=== PATIENT | male | born 1960 | race Caucasian/White ===

== ENCOUNTER 2022-01-18 19:10 | Emergency (ER) | payer OTHER ==
--- OUTSIDE RECORDS SUMMARY | 2022-01-18 19:16 | XMS REPORT | Continuity of Care Document ---
:1960 Author Organization [facility] t Address [address] [place] [address] Care Team Providers Name Role Phone No , Pcp Primary Care Physician Unavailable SOPHIE LAZCANO Attending Clinician Unavailable REBECA JUAREZ Attending Clinician Unavailable ANNETTE WALDEN Attending Clinician Unavailable ANNETTE WALDEN Attending Clinician Unavailable Luis Méndez MD Attending Clinician Annette Walden DO Attending Clinician NEVA MACHUCA Attending Clinician Unavailable NEVA MACHUCA Attending Clinician Unavailable GERI BALDERAS Attending Clinician Unavailable Geri Balderas MD Attending Clinician Kristie Martin MD Attending Clinician AWILDA Attending Clinician Unavailable Doctor Unassigned, [place] Attending Clinician Unavailable KRISTIE MARTIN Attending Clinician Unavailable Amos Andrews DO Attending Clinician AMOS ANDREWS Attending Clinician Unavailable Liz BOO, Chinmay Silva Attending Clinician Unavailable Sam Balbuena DO Attending Clinician Kiet Madera MD Attending Clinician Gramm [employer] LATHE SETTER, Paty A Attending Clinician Ed[facility] Attending Clinician Sophie Lazcano MD Attending Clinician [place], [facility] Test Attending Clinician Unavailable Denny Hammer DO Attending Clinician RAIZA RUSH Attending Clinician Unavailable Raiza Rush MD Attending Clinician [phone] Alix PRATHER, Gema Silva Attending Clinician [phone] GEMA SOARES Attending Clinician Unavailable Madonna Garcia MD Attending Clinician MADONNA GARCIA Attending Clinician Unavailable Feli White DO Attending Clinician LampEboni Quiñonez Attending Clinician EBONI COFFMAN Attending Clinician Unavailable Pavan Craig MD Attending Clinician PAVAN CRAIG Attending Clinician Unavailable Kayla Lucas Attending Clinician Unavailable Sobia Ace MD Attending Clinician SOBIA ACE Attending Clinician Unavailable [facility] Attending Clinician Unavailable 1, [facility] Cardio Fac Room Attending Clinician Unavailable Ryland YORK, Isaias Ohara Attending Clinician Andi Castrejon MD Attending Clinician Becca Dempsey RN Attending Clinician Ricky Sher MD Attending Clinician Eliu Wallace MD Attending Clinician JONATHAN LING Attending Clinician Unavailable ROSALIE MAGAÑA Attending Clinician Unavailable SOPHIE LAZCANO Admitting Clinician Unavailable NEVA MACHUCA Admitting Clinician Unavailable AMBREEN_FARHANA Admitting Clinician Unavailable EVELYN VALENCIA Admitting Clinician Unavailable Sam Balbuena DO Admitting Clinician Sophie Lazcano MD Admitting Clinician SOBIA ACE Admitting Clinician Unavailable Ricky Sher MD Admitting Clinician Eliu Wallace MD Admitting Clinician FARNAZ DELGADO Admitting Clinician Unavailable Payers Payer Name Policy Type Policy Number Effective Date Expiration Date Ольга mcgee [facility] [id number] 2017 CHOICE 00:00:00 [facility] PLUS [id number] 2017 00:00:00 [facility] [employer] [id number] 2019 00:00:00 Problems Condition Condition Condition Status Onset Resolution Last Treating Co mments Source Name Details Category Date Date Treatment Clinician Date Skull Skull Disease Active Univers fracture fracture 1-20 ity of with with 00:00: [place] cerebral cerebral 00 Medica l contusion, contusion, Br anch sequela sequela Skin tag Skin tag Disease Active Unive rs 1-20 ity of 00:00: [place] 00 Medical Branch Sepsis Sepsis Disease Active Univers 7-12 ity of 00:00: [place] 00 Medical Branch Tracheosto Tracheosto Disease Active U nivers my status my status 5-13 ity of 00:00: [place] 00 Medical Branch Hospice Hospice Disease Active Overview: Univ ers care care 3-05 Formattin ity of patient patient 00:00: g of this [place] 00 note Medical might be Branch different from the original. Added automatic ally from request for surgery [id number] Encounter Encounter Disease Active 2019-02 Uni vers for for 1-11 [place] of screening screening 00:[place] for for 00 Medical malignant malignant Bran ch neoplasm neoplasm of lung of lung Anxiety, Anxiety, Disease Active 2019-02 Unive rs generalize generalize 1-11 it y of d d 00:00: [place] 00 Medical Branch Agitation Agitation Disease Active 2019-02 Uni vers states as states as 1-11 ity of acute acute 00:00: [place] reaction reaction 00 Medica l to to Branch exceptiona exceptiona l (gross) l (gross) stress stress Spasticity Spasticity Disease Active U nivers 7-01 ity of 00:00: [place] 00 Medical Branch Fungal Fungal Disease Active [facility] nail nail 7- it[place] of infection infection 00:[place] Change in Change in Disease Active Uni vers nail nail 7- it[place] of appearance appearance [place] Paralysis Paralysis Disease Active Uni vers 4-28 ity of 00:00: [place] 00 Medical Branch Pneumoniti Pneumoniti Disease Active U nivers s due to s due to -28 ity of inhalation inhalation 00:00[place] of food or of food or 00 Me dical vomitus vomitus Branch Clostridiu Clostridiu Disease Active 2018-02 U tarun m m 2-16 it[place] of difficile difficile 00:[place] diarrhea diarrhea 00 Medica [place] Branch Cardiomyop Cardiomyop Disease Active 2018-02 U tarun athy, athy, 2-16 ity of unspecifie unspecifie 00:[place] d type d type 00 Medical Branch E44.1 Mild E44.1 Mild Disease Active 2018-02 U tarun protein-ca protein-ca - it y of esperanza esperanza 00:00: [place] malnutriti malnutriti 00 Me dical on on Branch [facility] Disease Active Unive rs discharge discharge 10-31 ity of follow-up follow-up 00:[place] [facility] [place] Chronic Chronic Disease Active [facility] congestive congestive 10-31 it y of heart heart 00:00: [place] failure, failure, 00 Medica l unspecifie unspecifie Br anch d heart d heart failure failure type type Pressure Pressure Disease Active Unive rs injury of injury of 10-31 ity of skin of skin of 00:00: [place] buttock, buttock, 00 Medica l unspecifie unspecifie Br anch d injury d injury stage, stage, unspecifie unspecifie d d laterality laterality Migraine Migraine Disease Active Unive rs without without 10-31 ity of status status 00:00: [place] migrainosu migrainosu 00 Me dical s, not s, not Branch intractabl intractabl e, e, unspecifie unspecifie d migraine d migraine type type Constipati Constipati Disease Active U tarun on, on, 10-31 ity of unspecifie unspecifie 00:00[place] d d 00 Medical constipati constipati Br anch on type on type Chronic Chronic Disease Active Univers neuropathi neuropathi 9-23 it y of c pain c pain 00:00: [place] 00 Medical Branch E44.0 E44.0 Disease Active Univers Moderate Moderate 9-13 ity of protein protein 00:00: [place] calorie calorie 00 Medical malnutriti malnutriti Br anch on on Other Other Disease Active Univers pulmonary pulmonary 6-03 ity of embolism embolism 00:00: [place] without without 00 Medical acute cor acute cor Bran ch pulmonale, pulmonale, unspecifie unspecifie d d chronicity chronicity Septic Septic Disease Active Univers shock shock 6-03 ity of 00:00: [place] 00 [facility] Branch NSTEMI NSTEMI Disease Active Univers (non-ST (non-ST 6- ity of elevated elevated 00:00: [place] myocardial myocardial 00 Me dical infarction infarction Br anch ) ) Acute Acute Disease Active Univers respirator respirator 5-24 it y of y failure y failure 00:00[place] E46 E46 Disease Active Univers Unspecifie Unspecifie 5-08 it y of d severe d severe 00:00: [place] protein-ca protein-ca 00 Me dical esperanza esperanza Branch malnutriti malnutriti on on HCAP HCAP Disease Active Univers (healthcar (healthcar 4-23 it y of e-associat e-associat 00:00: [place] ed ed 00 Medical pneumonia) pneumonia) Br anch Syncope Syncope Disease Active Univers 1-24 ity of 00:00: [place] 00 Medical Branch Shortness Shortness Disease Active Uni vers of breath of breath 1-16 ity of 00:00: [place] [address] Medical Branch Aspiration Aspiration Disease Active U nivers pneumonia pneumonia 1-03 ity of 00:00: [address] Branch Hypoxia Hypoxia Disease Active 2017-02 Univers 2-24 ity of 00:00: [place] 00 Medical Branch RLL RLL Disease Active 2017-02 Univers pneumonia pneumonia 2-19 ity of 00:00: [address] Branch Seizures Seizures Disease Active 2017-02 Unive rs 0-09 ity of 00:00: [place] 00 Medical Branch Infection Infection Disease Active 2017-02 Uni vers 0-02 ity of 00:00: [place] 00 Medical Branch Complicate Complicate Disease Active U nivers d UTI d UTI 09-09 ity of (urinary (urinary 00:00: [place] tract tract 00 Medical infection) infection) Br anch Infection Infection Disease Active Uni vers of scalp of scalp 09-08 ity of 00:00: [place] [facility] Hepatitis Hepatitis Disease Recurre Un desirae C virus C virus nce 09-08 ity of infection infection 00:00[place] Aphasia Aphasia Disease Recurre Univer s with TBI with TBI nce 09-08 ity of (traumatic (traumatic 00:00: [place] brain brain 00 Medical injury), injury), Branch open open Generalize Generalize Disease Active U nivers d d 09-08 ity of tonic-clon tonic-clon 00:00: [place] ic seizure ic seizure 00 Md dical Branch Acute Acute Disease Active Univers cystitis cystitis 09-08 ity of without without 00:00: [place] hematuria hematuria 00 [facility] Branch History of History of Disease Recurre Univers trephinati trephinati nce 09-08 it y of on of on of 00:00: [place] cranium cranium 00 Medical Branch Altered Altered Disease Active [facility] mental mental 7-28 [facility] 00:00: Medical 00 Center S/P S/P Disease Active [facility] craniotomy craniotomy 728 [facility] 00:00: Medical 00 Center Altered Altered Disease Active Univers mental mental 6-04 ity of status status 00:00: [place] Medical Branch Open wound Open wound Disease Active Overview : Univers of scalp, of scalp, 5-04 Formattin i ty of unspecifie unspecifie 00:00: g of this [place] d open d open 00 note Medical wound wound might be Branch type, type, different initial initial from the encounter encounter original. Added automatic ally from request for surgery [id number] Osteomyeli Osteomyeli Disease Active U nivers tis of tis of 2-04 ity of skull skull 00:00: [place] [facility] Abscess Abscess Disease Active Univers 1-31 ity of 00:00: [place] [facility] PEG tube PEG tube Disease Active Unive rs malfunctio malfunctio 03-07 it y of n n 00:00: [place] [facility] Scalp Scalp Disease Active Univers abscess abscess 03-07 ity of 00:00: [place] 00 Medical Branch Morbid Morbid Disease Active Univers obesity obesity 03-07 ity of with body with body 00:00: [place] mass index mass index 00 Me dical of 50 or of 50 or Branch higher higher PEG PEG Disease Active Univers (percutane (percutane 03-06 it y of ous ous 00:00: [place] endoscopic endoscopic 00 Me dical gastrostom gastrostom Br anch y) status y) status Pyogenic Pyogenic Disease Active 2016-02 Unive rs brain brain 0-30 ity of abscess abscess 00:00: [place] 00 Medical Branch Fever, Fever, Disease Active 2016-02 Univers unspecifie unspecifie 0-07 it y of d fever d fever 00:00: [place] cause cause 00 Medical Branch Leukocytos Leukocytos Disease Active 2016-02 U nivers is, is, 0-07 ity of unspecifie unspecifie 00:00: [place] d type d type 00 Medical Branch Acute Acute Disease Active 2016-02 Univers respirator respirator 0-07 it y of y failure y failure 00:00: [place] with with 00 Medical hypoxia hypoxia Branch Subdural Subdural Disease Active Unive rs hemorrhage hemorrhage 11-03 it y of 00:00: [place] 00 Medical Branch Skull Skull Disease Active Univers fracture fracture 11-03 ity of with with 00:00: [place] cerebral cerebral 00 Medica l contusion, contusion, Br anch open, open, initial initial encounter encounter Traumatic Traumatic Disease Active Uni vers brain brain 11-03 ity of injury, injury, 00:00: [place] without without 00 Medical loss of loss of Branch consciousn consciousn ess, ess, sequela sequela Cerebral Cerebral Disease Active Unive rs edema edema 11-03 ity of 00:00: [place] 00 Medical Branch Compressio Compressio Disease Active U nivers n of brain n of brain 11-03 it y of 00:00: [place] 00 Medical Branch Traumatic Traumatic Disease Active Uni vers subarachno subarachno 11-03 it y of id bleed id bleed 00:00: [place] with LOC with LOC 00 Medica l of 6 hours of 6 hours Br anch to 24 to 24 hours, hours, initial initial encounter encounter S/P S/P Disease Active Univers craniotomy craniotomy 11-03 it y of 00:00: [place] 00 Medical Branch Aftercare Aftercare Disease Active Uni vers following following 11-03 ity of surgery of surgery of 00:00: [place] the the Medical nervous nervous Branch system system Endotrache Endotrache Disease Active U nivers ally ally 11-03 ity of intubated intubated 00:00[place] Ventilator Ventilator Disease Active U nivers dependent dependent 11-03 ity of 00:00: [place] [address] Medical Branch Chronic Chronic Disease Active Overview: Univ ers respirator respirator 11-02 Formattin ity of y failure y failure 00:00: [place] of this [place] with with 00 note Medical hypoxia hypoxia might be Branch different from the original. Added automatic ally from request for surgery [id number] S/P ORIF S/P ORIF Disease Active [facility] (open (open 08-07 Health reduction reduction 00:00: internal internal 00 fixation) fixation) fracture fracture Occult Occult Disease Active [place] blood blood 07-13 Health positive positive 00:00: stool stool 00 Chronic Chronic Disease Active [place] hepatitis hepatitis 05-30 Heal C without C without 00:00: hepatic hepatic 00 coma coma Hepatic Hepatic Disease Active [place] cirrhosis cirrhosis 05-30 Heal 00:00: 00 Overweight Overweight Disease Active [facility] (278.02) (278.02) 04-13 Health 00:00: 00 distal distal Disease Active [place] ulna fx ulna fx 04-13 Health 00:00: 00 History of History of Disease Active [facility] alcohol alcohol 04-13 Health abuse abuse 00:00: 00 History of History of Disease Active [facility] positive positive 04-13 Health PPD PPD 00:00: 00 \major \major Disease Active Overview: [facility] depression depression 04-13 Formattin Health managed by managed by 00:00: g of this private private 00 note psychiatri psychiatri might be st dr st dr ghazala gross from the original. [facility] CE MALE Occult Blood (50+ yearly): Cholest (20+ q 5 years): Td (adult 11+):04/22 ppd: + quantifer on +Pneumova x adult:07/09 5 Fluzone: History of History of Disease Active 2014- [facility] colon colon - Health polyps polyps 00:00: 00 History of History of Disease Active [facility] humerus humerus 04-13 Health fracture fracture 00:00: 00 Impotence Impotence Disease Recurre 2010-02 Un desirae of organic of organic nce 02-28 it y of origin origin 00:00: [place] 00 Medical Branch Allergies, Adverse Reactions, Alerts This patient has no known allergies or adverse reactions. Family History Family Member Diagnosis Comments Start Date Stop Date Source Natural father Cancer Stefan Borjafrantz [facility] Natural mother Arthritis [facility] Jonhfrantz [facility] Natural mother Hypertension Stefan welsh Social History Social Habit Start Date Stop Date Quantity Comments Source History of Current smoker University of tobacco use [facility] Exposure to 2021-09-30 2021-10-10 Not sure [facility] SARS-CoV-2 00:00:00 03:27:00 [facility] (event) [place] Alcohol intake 2021-06-07 2021-06-07 Current Stefan Jonhfrantz [facility] 00:00:00 00:00:00 non-drinker of alcohol (finding) Tobacco Comment 2018-01-31 2018-01-31 cigar smoker, Univer sity of 00:00:00 00:00:00 quit after TBI [facility] Tobacco use and 2017-09-04 2017-09-[address] [facility] exposure 00:00:00 [facility] Alcohol Comment 2014-09-26 2014-09-26 quit 09/1997 Stefan welsh 00:00:00 00:00:00 [birth year] Stefan hanson 00:00:00 00:00:00 Smoking Status Start Date Stop Date Source Tobacco smoking [facility] consumption unknown Ex-smoker 2018-01-31 00:00:00 2018-01-31 [facility] 00:00:00 Medical Branch Never smoker [facility] Medications Ordered Filled Start Stop Current Ordering Indication Dosage Frequency Signature Comments Components Source Medication Medication Date Date Medication? Clinician (SIG) Name Name aspirin 81 Yes 81mg 81 mg Univer s mg EC 7-27 every 3 ity of tablet 16:27: (three) [place] 49 days. Medical Indication Branch s: Taken via Peg-tube not oral. SERTraline Yes 100mg Take 100 Un desirae 100 mg 7-27 mg by ity of tablet 16:27: mouth. [place] 49 Medical Branch Polyethylen Yes 17g Take 17 g U nivers e Glycol 7-27 by mouth. ity of 3350 17 16:27: [place] gram powder 49 Medical Branch whey Yes 7g Take 7 g Univers protein 7-27 through ity of isolate 21 16:27: feeding [place] gram-100 49 tube. Medical kcal/27 Branch gram Powd sennosides Yes 2{tbl} Take 2 Uni vers 8.6 mg 7-27 tablets by ity of tablet 16:27: mouth. [place] 49 Medical Branch Lactobacill Yes 1{tbl} Take 1 Un desirae us Acidoph 7-27 tablet by ity of & Bulgar 1 16:27: mouth. [facility] 49 Medical cell Tab Branch morpHINE Yes 20mg Take 20 mg Uni vers CONC 100 7-27 by mouth ity of mg/5 mL (20 16:27: every 12 [place] mg/mL) 49 (twelve) Medical concentrate hours as Bran ch d solution needed. LORazepam Yes .5mg Take 0.5 Univ ers (ATIVAN) 7-27 mg by ity of 0.5 mg 16:27: mouth. [place] tablet 49 Take two Medical at bed Branch time, One during the day for agiation hyoscyamine Yes .125mg Place Uni vers sulfate 7-27 0.125 mg ity of 0.125 mg 16:27: [place] the [place] sublingual 49 tongue. Medica l tablet One at bed Branch time and one at 2 am proMETHazin Yes 25mg Take 25 mg Univers e 25 mg 7-27 by mouth ity of tablet 16:27: every 4 [place] [address] (four) Medical hours as Branch needed for Nausea and Vomiting (N/V). peg-electro Yes [id number] 4000mL Take 4,000 Univers lyte soln 6-29 mL by ity of 236-22.74-6 00:00: mouth [place] .74 -5.86 00 SEE-INSTRU Medi sydnee gram CTIONS. Branch solution Take as directed GABAPENTIN Yes [id number] GIVE 1 Univers 300 mg 3-23 CAPSULE ity of capsule 00:00: THREE [place] 00 TIMES Medical DAILY VIA Branch PEG TUBE atorvastati 2019-02 Yes [id number] 40mg Take 2 Univers n 20 mg 2-23 tablets by ity of tablet 00:00: mouth at [place] 00 bedtime. Medical Branch albuterol 2019-02 Yes [id number] 2.5mg Inhale 3 Univers 2.5 mg /3 1-11 mL every 6 ity of mL (0.083 00:00: (six) [place] %) 00 hours as Medical nebulizer needed for Bran ch solution Wheezing or Shortness of Breath. melatonin 2019-02 Yes [id number] 1{tbl} Take 1 Univers 10 mg Tab 1-11 tablet by ity o f 00:00: mouth at [place] 00 bedtime as Medical needed for Branch Insomnia. valproic 2019-02 Yes [id number] 250mg Take 5 mL Univers acid 250 0-24 through ity of mg/5 mL 00:00: enteral [place] solution 00 tube every Medic al 12 Branch (twelve) hours. tiZANidine Yes TK 1 T PO Un desirae 4 mg tablet 6-27 BID ity of 00:00: [place] 00 Medical Branch Miscellaneo Yes [id number] Diagnosis: Univers Medical 2-18 [id number] ity of Supply Misc 00:00: valerie Lift, [place] 00 use daily Medical for Branch patient transfer Miscellaneo 2018- Yes [id number] Use as Univers us Medical 10-31 directed ity o f Supply Pads 00:00: [place] 00 Medical Branch docusate 2018- Yes [id number] 10mg Take 1 mL Univers (SILACE) 50 9-23 through ity o f mg/5 mL 00:00: enteral [place] solution 00 tube Medical daily. Branch Feeding 2018- Yes [id number] Use as Univ ers Tubes - 10-25 directed ity of Bags Misc 00:00: [place] 00 Medical Branch HYDROcodone 2018- Yes [id number] 1{tbl} Take 1 Univers -acetaminop 8-08 tablet by ity of hen 10-325 00:00: mouth [place] mg tablet 00 every 6 Medical (six) Branch hours as needed for Pain (scale 4-6). acetaminoph 2017-02 Yes 320mg Take 10 mL Univers en 160 mg/5 1-19 by mouth ity of mL elixir 00:00: every 6 [place] 00 (six) Medical hours as Branch needed for Fever or Pain. Via feeding tube atorvastati Yes 40mg QD Take [address] [facility] (LIPITOR) 7-29 by mouth [facility] s 40 MG 19:59: daily. Medical tablet 13 [place] bacitracin Yes QD Apply [facility] 500 7-29 topically [facility] unit/gram 19:59: daily. Medica l ointment 13 [place] trypsin-bal Yes Apply [facility] drake-castor 7-29 topically Luke s oil 19:59: 2 (two) [facility] 23-29-375 13 times [place] unit-mg-mg/ daily as gram Oint needed. bisacodyl Yes 10mg Place [address] (FLEET) 10 7-29 mg [facility] mg/30 mL 19:59: rectally Medic al Enem enema 13 once. [place] enoxaparin Yes 70mg Inject [address] (LOVENOX) 7-29 mg [facility] 100 mg/mL 19:59: subcutaneo Me dical Syrg 13 usly every Center 12 (twelve) hours. fluticasone Yes 1{puff} Inhale [address] (FLOVENT 7-29 puff by [facility] DISKUS) 50 19:59: mouth via Me dical mcg/actuati 13 inhaler Cente r on diskus daily as inhaler needed. HYDROcodone 2017- Yes 1{tbl} Take [address] -acetaminop 7-29 tablet by Naomi martinez (NORCO 19:59: mouth Medica l 5-325) 13 every 8 [place] 5-325 mg (eight) per tablet hours as needed for Pain. levETIRAcet 2017- Yes 500mg Q.5D Take [address] am (KEPPRA) 7-29 mg by [facility] 500 MG 19:59: mouth 2 Medical tablet 13 (two) [place] times daily. loratadine 0 Yes 10mg QD Take [address] (CLARITIN) 7-29 by mouth [facility] 10 mg 19:59: daily. Medical tablet 13 [place] melatonin 3 0 Yes 3mg Take [address] mg Tab 7-29 by mouth [facility] tablet 19:59: every Medical 13 night as Center needed. mirtazapine 20180 Yes 15mg QD Take [address] (REMERON) 7-29 by mouth [facility] 15 MG 19:59: nightly. Medical tablet 13 [place] ondansetron 0 Yes 4mg Take [address] (ZOFRAN-ODT 7-29 by mouth Luke s ) 4 MG 19:59: every 8 Medical disintegrat 13 (eight) Cente r ing tablet hours as needed for Nausea. pantoprazol 0 Yes 40mg QD Take [address] e 7-29 by mouth [facility]ukes (PROTONIX) 19:59: daily. Medic al 40 MG 13 [place] tablet polyethylen 0 Yes 17g QD Take [address] e glycol 7-29 by mouth [facility] (GLYCOLAX) 19:59: daily. Medic al 17 gram 13 [place] packet senna Yes 2{tbl} QD Take [address] (SENOKOT) 7-29 tablets by Luke s 8.6 mg 19:59: mouth Medical tablet 13 nightly. [place] sertraline 0 Yes 100mg QD Take [address] (ZOLOFT) 7-29 mg by [facility] 100 MG 19:59: mouth Medical tablet 13 daily. [place] whey 0 Yes 7g Q.[id number] 7 g by PEG [facility] protein 7-29 [id number] Tube route [facility] isolate 21 19:59: 3D 3 (three) Me dical gram-100 13 times Center kcal/27 daily. gram Powd acetaminoph 0 Yes 650mg Take [address] en 7-29 mg by [facility] (TYLENOL) 19:59: mouth Medical 325 MG 13 every 4 Center tablet (four) hours as needed for Pain. Lactobacill 2018-0 Yes 1{tbl} QD Take [address] us 7-29 tablet by [facility]ukes acidoph-L.b 19:59: mouth Medic al ulgar 13 daily. [place] (FLORANEX) 1 million cell Tab per tablet artificial Yes 1[drp] Place 1 Un desirae tears,hypro 6-15 Drop in ity o f mellose, 00:00: both eyes [place] 0.5 % 00 2 (two) Medical ophthalmic times Branch drops daily as needed for Dry eyes. DULoxetine Yes 60mg QD Take 60 mg [facility] (CYMBALTA) 1-20 by mouth Healt h 60 mg 15:01: daily. delayed 26 release capsule traZODone Yes 100mg Take 100 [facility] (DESYREL) 1-20 mg by [facility] 100 mg 15:01: mouth at tablet 26 bedtime nightly. diazepam Yes 10mg Take 10 mg [facility] (VALIUM) 10 1-20 by mouth Heal th mg tablet 15:01: every 6 26 hours as needed for Anxiety. gabapentin Yes 300mg Take 300 [place] r[facility] (NEURONTIN) 1-20 mg by [facility] 300 mg 15:01: mouth 3 capsule 26 times daily. diphenhydrA Yes 25mg Take 25 mg [facility] MINE 1-20 by mouth Health (BENADRYL) 15:01: nightly at 25 mg 26 bedtime as capsule needed for Sleep. tamsulosin 2015-02 Yes Medication TAKE 1 [facility] (FLOMAX) 2-15 refill CAPSULE BY [facility] 0.4 mg 00:00: MOUTH AT extended 00 BEDTIME release NIGHTLY. capsule fentaNYL 2015-02 Yes 1{patch Apply 1 [facility] (DURAGESIC) 2-01 } Patch to Heal th 100 mcg/hr 13:10: skin as 72 hr 40 directed transdermal every 72 patch hours. cetirizine Yes Acute 10mg QD Take 1 [place] is (ZYRTEC) 10 6-27 pharyngitis tablet by Health mg tablet 00:00: , mouth 00 unspecified daily. etiology Mineral Yes Xerosis Apply to [facility] ris Oil-Isoprop 5-17 cutis affected [facility] yl Myristat 00:00: area Mix Lotn 00 80 mg of triamcinol one ( 2 ml of the 40mg/ml concentrat ion) into an 8 ounce bottle of skin moisturize r Apply to dry skin tid. calcium 500 Yes Hypocalcemi Q.5D Take by [facility] mg Tab 4-03 a mouth 2 Health 00:00: times 00 daily. Immunizations Ordered Immunization Filled Immunization Date Status Commen ts Source Name Name SARS-COV-2 COVID-19 2020-04-09 Completed Unive rsity of PFIZER VACCINE 00:00:00 [facility] SARS-COV-2 COVID-19 2020-03-19 Completed Unive rsity of PFIZER VACCINE 00:00:00 [facility] Td 2016-11-02 Completed [facility] 00:00:00 [facility] Twinrix (hep a/hep 2015-05-31 Completed Univer sity of b) 00:00:00 [facility] Twinrix-HEP A&b 2015-05-31 Completed [facility] alth 00:00:00 Twinrix (hep a/hep 2014-08-27 Completed Univer sity of b) 00:00:00 [facility] Twinrix-HEP A&b 2014-08-27 Completed [facility] alth 00:00:00 Pneumococcal 2014-07-23 Completed [facility] Polysaccharide, 00:00:00 [facility] ical PPSV23 (PNEUMOVAX) [place] Twinrix (hep a/hep 2014-07-23 Completed Univer sity of b) 00:00:00 [facility] PPV 23 Pneumococcal 2014-07-23 Completed [facility] Polysaccaride 00:00:00 Twinrix-HEP A&b 2014-07-23 Completed [facility] alth 00:00:00 TDAP 2014-04-13 Completed [facility] 00:00:00 [facility] Tdap Tetanus, 2014-04-13 Completed [facility] th diphtheria, 00:00:00 acellular pertussis Vaccine Procedures This patient has no known procedures. Plan of Care Planned Activity Planned Date Details Comments Source Future Scheduled Test 2021-11-08 00:00:00 IMM Influenza [facility] Seasonal (>/= 19 yrs) [code = IMM Influenza Seasonal (>/= 19 yrs)] Future Scheduled Test 2021-01-08 00:00:00 Screening for [facility] malignant neoplasm of colon (procedure) [code = 752559618] Future Scheduled Test 2021-01-08 00:00:00 Screening for [facility] malignant neoplasm of colon (procedure) [code = 656977180] Future Scheduled Test 2012-02-19 00:00:00 Screening for [facility] malignant neoplasm of colon (procedure) [code = 132451833] Future Scheduled Test 2012-02-19 00:00:00 Screening for [facility] malignant neoplasm of colon (procedure) [code = 485001100] Future Scheduled Test 2012-02-19 00:00:00 Screening for [facility] malignant neoplasm of colon (procedure) [code = 344087757] Future Scheduled Test 1962 00:00:00 COVID-19 Vaccine (#1) [facility] [code = COVID-19 Vaccine (#1)] Encounters Start End Encounter Admission Attending Care Care Encounter Source Date/Time Date/Time Type Type Clinicians Facility Department ID 2020-12-09 Outpatient [facility] [id number] Univers 10:31:29 [facility] 2020-12-09 Emergency [facility] [id number] Univers 07:30:10 ity [facility] 2020-12-08 Outpatient [facility] [id number] Univers 04:31:19 [facility] 2020-06-26 Outpatient [facility] [id number] [place] 13:50:36 [facility] 2020-06-26 Outpatient [facility] [id number] [place] 07:30:01 [facility] 2021-10-10 2021-10-10 Emergency X ANNETTE WALDEN [facility] ERT 1 [id number] Univers 03:30:00 11:12:00 ANNETTE WALDEN [facility] 2021-10-10 2021-10-10 Emergency Méndez, Luis W TRAU[place] 1.2.840.11 [id number] Univers 03:30:00 11:12:00 Annette Walden [place] 350.1.13.[address] [facility] [id number] [address] 2021-10-09 2021-10-10 Emergency X NEVA MACHUCA [facility] ERT 1 [id number] Univers 23:12:00 02:45:00 NEVA MACHUCA [facility] 2021-10-09 2021-10-10 Emergency Hajiyev, TRAUMA 1.2.840.114 [id number] Univers 23:12:00 02:45:00 [facility] 350.1.13.10 [place] [phone] [facility] [address] 2021-10-09 2021-10-09 Emergency [facility] [id number] Univers 18:54:00 22:02:00 GERI costay of [facility] 2021-10-09 2021-10-09 [facility] 1.2.809.391 [id number] Univers 18:54:00 22:02:00 Geri FREDERICK 350.1.13.10 i ty [place] [id number] [facility] [address] [place] 2021-09-30 2021-09-30 Telephone [facility] 1.2.840.114 [id number] Univers 00:00:00 00:00:00 Kristie FREDERICK 350.1.13.10 i ty [place] [phone] Md dic[address] 2021-09-17 2021-09-17 Telephone [facility] 1.2.840.114 9 [id number] Univers 00:00:00 00:00:00 Kristie FREDERICK 350.1.13.10 i ty [place] [phone] Md dicpr NAL [address] [place] [address] 2021-09-17 2021-09-17 Telephone [facility] 1.2.840.114 9 [id number] Univers 00:00:00 00:00:00 Kristie FREDERICK 350.1.13.10 i ty [place] [id number] Md dicpr NAL [address] [place] [address] 2021-08-19 2021-08-19 Outpatient [facility] [address] [place] 02:21:00 02:21:00 SNEHA 07Caty da [facility] Outre h Program 2021-08-15 2021-08-15 Telephone [facility] 1.2.840.114 9 [id number] Univers 00:00:00 00:00:00 Kristie FREDERICK 350.1.13.10 i ty [place] [id number] Md dic[address] 2021-08-15 2021-08-15 Telephone [facility] 1.2.840.114 9 [id number] Univers 00:00:00 00:00:00 Kristie FREDERICK 350.1.13.10 i ty [place] [id number] [address] 2021-06-20 2021-06-20 [facility] 1.2.840.114 9 [id number] Univers 00:00:00 00:00:00 Kristie FREDERICK 350.1.13.10 i ty [place] [id number] Md dic[address] 2021-06-11 2021-06-11 [facility] 1.2.840.114 9 [id number] Univers 00:00:00 00:00:00 Kristie FREDERICK 350.1.13.10 i ty [place] [id number] [address] 2021-04-11 2021-04-11 [facility] 1.2.840.114 9 [id number] Univers 00:00:00 00:00:00 Kristie FREDERICK 350.1.13.10 i ty [place] [id number] Md dic[address] 2021-04-11 2021-04-11 Orders Doctor SANTO 1.2.840.114 [id number] Univers 00:00:00 00:00:00 Only Unassigned, EVELYNE 350.1.13.10 ity of [place] [facility] 4.2.7.2.686 José Miguel as [phone] [address] 2021-04-09 2021-04-09 Telephone [facility] 1.2.840.114 9 [id number] Univers 00:00:00 00:00:00 Kristie FREDERICK 350.1.13.10 i ty [place] [phone] [address] 2021-04-04 2021-04-04 Telephone [facility] 1.2.840.114 9 [id number] Univers 00:00:00 00:00:00 Kristie FREDERICK 350.1.13.10 i ty [place] [id number] [address] 2021-04-02 2021-04-02 Orders Doctor HANSA 1.2.840.114 [id number] Univers 00:00:00 00:00:00 Only Unassigned, EVELYNE 350.1.13.10 ity of [place] [facility] 4.2.7.2.686 José Miguel as [phone] [address] 2021-03-12 2021-03-12 Telephone [facility] 1.2.840.114 9 [id number] Univers 00:00:00 00:00:00 Kristie FREDERICK 350.1.13.10 i ty [place] [id number] [address] 2021-02-28 2021-02-28 Orders Doctor HANSA 1.2.840.114 [id number] Univers 00:00:00 00:00:00 Only Unassigned, EVELYNE 350.1.13.10 ity of [place] [facility] 4.2.7.2.686 José Miguel as [phone] [address] 2021-02-27 2021-02-27 Outpatient R VERONICA [facility] [id number] Univers 09:00:00 16:08:28 KRISTIE nettles of [facility] 2021-02-27 2021-02-27 [facility]ici [facility] 1.2.840.114 [id number] Univers 09:00:00 16:08:28 ne Visit Kristie FREDERICK 350.1.13.10 [facility] 4.2.7.2.[place] [phone] Md dical NAL [address] [place] [address] 2021-02-21 2021-02-21 Telephone [facility] 1.2.840.114 9 [id number] Univers 00:00:00 00:00:00 Kristie FREDERICK 350.1.13.10 i ty [facility] 4.2.7.2.[place] [phone] Md dical NAL [address] [place] [address] 2021-01-30 2021-01-30 Telephone [facility] 1.2.840.114 8 [id number] Univers 00:00:00 00:00:00 Kristie FREDERICK 350.1.13.10 i ty [facility] 4.2.7.2.[place] [phone] Md dicpr NAL [address] [place] [address] 2020-12-27 2020-12-27 Orders Doctor HANSA 1.2.840.114 [id number] Univers 00:00:00 00:00:00 Only Unassigned, EVELYNE 350.1.13.10 ity of [place] [facility] 4.2.7.2.686 José Miguel as [phone] [address] 2020-12-13 2020-12-13 EXT MHH OP Magat, EXT MSRDP 1.2.840.114 1 [id number] [place] 00:00:00 00:00:00 Rebeca LOCATION 350.1.13.58 Health 9.2.7.2.686 [id number] 0 2020-12-10 2020-12-10 Outpatient R [facility] [id number] Univers 00:00:00 00:00:00 ity of [facility] 2020-12-10 2020-12-10 Orders Doctor HANSA 1.2.840.114 [id number] Univers 00:00:00 00:00:00 Only Unassigned, EVELYNE 350.1.13.10 ity of [place] [facility] 4.2.7.2.686 José Miguel as [phone] [address] 2020-11-25 2020-11-25 Outpatient [facility] [id number] Univers 00:00:00 00:00:00 ity of [facility] 2020-11-21 2020-11-21 Emergency [facility] 1.2.346.096 [id number] Univers 07:45:00 11:11:00 Amos Frederick 350.1.13.10 i ty of [place] [phone] [address] 2020-11-21 2020-11-21 Emergency X [facility] ERT [id number] Univers 07:45:00 11:11:00 AMOS igorlul of [facility] 2020-11-12 2020-11-12 Telephone [facility] 1.2.840.114 8 [id number] Univers 00:00:00 00:00:00 Kristie Frederick 350.1.13.10 i ty of [place] [phone] [address] 2020-10-11 2020-10-11 Telephone [facility] 1.2.840.114 8 [id number] Univers 00:00:00 00:00:00 Kristie Frederick 350.1.13.10 i ty of [place] [phone] Md dic[address] 2020-10-04 2020-10-04 Orders Doctor HANSA 1.2.840.114 [id number] Univers 00:00:00 00:00:00 Only Unassigned, EVELYNE 350.1.13.10 ity of [place] [facility] 4.2.7.2.686 José Miguel as [phone] [address] 2020-10-04 2020-10-04 Orders Doctor HANSA 1.2.840.114 [id number] Univers 00:00:00 00:00:00 Only Unassigned, EVELYNE 350.1.13.10 ity of [place] [facility] 4.2.7.2.686 José Miguel as [phone] [address] 2020-09-302020-09-30 Telephone [facility] 1.2.840.114 8 [id number] Univers 00:00:00 00:00:00 Kristie Frederick 350.1.13.10 i ty of [place] [phone] Md dical nal 044 [facility] 2020-09-26 2020-09-26 Telephone [facility] 1.2.840.114 8 [id number] Univers 00:00:00 00:00:00 Kristie Frederick 350.1.13.10 i ty of [place] [phone] Md dical nal 044 [facility] 2020-09-26 2020-09-26 Telephone [facility] 1.2.840.114 8 [id number] Univers 00:00:00 00:00:00 Kristie Frederick 350.1.13.10 i ty of [place]2.[place] [phone] Md dical nal [address] [place] [address] 2020-09-26 2020-09-26 Orders Doctor HANSA 1.2.840.114 [id number] Univers 00:00:00 00:00:00 Only Unassigned, EVELYNE 350.1.13.10 ity of [place] [facility] 4.2.7.2.686 José Miguel as [phone] [facility] [address] [place] 2020-09-26 2020-09-26 Orders Doctor HANSA 1.2.840.114 [id number] Univers 00:00:00 00:00:00 Only Unassigned, EVELYNE 350.1.13.10 ity of [place] [facility] 4.2.7.2.686 José Miguel as [phone] [facility] [address] 2020-09-04 2020-09-04 Transition [place] 1.2.840.114 [id number] Univers 00:00:00 00:00:00 of Care Chinmay Roberts 350.1.13.10 ity of [place].2.[place] [phone] [facility] [address] 2020-08-192020-09-03 [facility] Geri Balderas [facility] 1.2.840.1 14 [id number] Univers 11:47:00 16:25:00 Encounter Sam Balbuena 350.1.13.10 ity of [place] 4.2.7.2.686 [facility] [phone] [facility] [address] 2020-08-06 2020-08-06 Telephone Katherine [facility] 1.2.163.227 [id number] Univers 00:00:00 00:00:00 Paty Frederick 350.1.13.10 ity of [place] [phone] [facility] 204 [facility] 2020-08-06 2020-08-06 Prep For Katherine [facility] 1.2.840.114 [id number] Univers 00:00:00 00:00:00 Surgery Paty Frederick 350.1.13.10 ity of [place] [phone] [facility] 204 [facility] 2020-07-25 2020-07-25 [facility] 1.2.840.114 8 [id number] Univers 00:00:00 00:00:00 Kristie Frederick 350.1.13.10 i ty of [place]2.[place] [phone] [facility] 044 [facility] 2020-07-04 2020-07-04 Telephone [facility] 1.2.840.114 [id number] Univers 00:00:00 00:00:00 Kristie Frederick 350.1.13.10 i ty of [place].2.[place] [phone] [facility] 044 [facility] 2020-07-04 2020-07-04 Orders Doctor HANSA 1.2.840.114 [id number] Univers 00:00:00 00:00:00 Only Unassigned, EVELYNE 350.1.13.10 ity of [place] [facility] 4.2.7.2.686 José Miguel as [phone] [address] 2020-06-25 2020-06-25 EXT MHH OP Magat, EXT MSRDP 1.2.840.114 1 [id number] [place] 00:00:00 00:00:00 Rebeca M LOCATION 350.1.13.58 Health 9.2.7.2.686 [id number] 0 2020-06-25 2020-06-25 EXT MHH OP Magat, EXT MSRDP 1.2.840.114 1 [id number] [place] 00:00:00 00:00:00 Rebeca M LOCATION 350.1.13.58 Health 9.2.7.2.686 [id number] 0 2020-06-20 2020-06-20 Telemedici [facility] 1.2.[id number] [facility] 10:14:46 11:10:57 ne Visit Kristie Frederick 350.1.13.10 [place] 4.2.7.2.686 Erkia Jarrett [phone] Md dic[address] 2020-06-20 2020-06-20 [facility] [id number] [facility] 09:20:00 09:20:00 KRISTIE nettles [facility] 2020-06-19 2020-06-19 EXT MHH OP Magat, EXT MSRDP 1.2.840.114 1 [id number] [place] 00:00:00 00:00:00 Rebeca M LOCATION 350.1.13.58 Health 9.2.7.2.686 [id number] 0 2020-06-19 2020-06-19 EXT MHH OP Magat, EXT MSRDP 1.2.840.114 1 [id number] [place] 00:00:00 00:00:00 Rebeca M LOCATION 350.1.13.58 Health 9.2.7.2.686 [id number] 0 2020-06-19 2020-06-19 [facility]phone [facility] 1.2.840.[id number] [facility] 00:00:00 00:00:00 Kristie Frederick 350.1.13.10 i ty misty [place] [phone] Md dical nal 044 [facility] 2020-06-19 2020-06-19 Orders Doctor HANSA 1.2.840.114 [id number] Univers 00:00:00 00:00:00 Only Unassigned, EVELYNE 350.1.13.10 ity of [place] [facility] 4.2.7.2.686 José Miguel as [phone] [address] 2020-05-22 2020-05-22 Telephone [facility] 1.2.840.114 8 [id number] Univers 00:00:00 00:00:00 Kristie Frederick 350.1.13.10 i ty of [place] [phone] Md dical nal [address] [place] [address] 2020-05-08 2020-05-08 Telemedici [facility] 1.2.840.114 [id number] Univers 07:58:08 16:59:26 ne Visit Kristie Frederick 350.1.13.10 ity of [place].2.[place] [phone] Md dic[address] 2020-05-08 2020-05-08 Outpatient R VERONICA [facility] [id number] Univers 09:00:00 09:00:00 KRISTIE itlul of [facility] 2020-05-08 2020-05-08 Patient [facility] 1.2.840.114 [id number] Univers 00:00:00 00:00:00 Outreach Taylor Frederick 350.1.13.10 ity of [place].2.[place] [phone] Md dical nal 044 [facility] 2020-05-06 2020-05-06 Telephone [facility] 1.2.840.114 8 [id number] Univers 00:00:00 00:00:00 Kristie Frederick 350.1.13.10 i ty of [place] [phone] Md dical nal 231 [facility] 2020-05-06 2020-05-06 Telephone [facility] 1.2.840.114 8 [id number] Univers 00:00:00 00:00:00 Kristie Frederick 350.1.13.10 i ty of [place].2.[place] [phone] Md dical nal 044 [facility] 2020-04-29 2020-04-29 [facility] 1.2.840.114 [id number] Univers 11:05:00 14:00:00 Encounter Sophie Frederick 350.1.13.10 ity of [place].2.[place] [phone] [facility] [address] [place] 2020-04-28 2020-04-28 Refill [facility] 1.2.840.114 [id number] Univers 00:00:00 00:00:00 Kristie Frederick 350.1.13.10 i ty of [place]2.[place] [id number] Md dical nal 044 [facility] 2020-04-26 2020-04-26 Laboratory Only, Adc Test [facility] 1.2.840. 114 [id number] Univers 14:19:39 14:34:39 Only Sophie Lazcano 350.1.13.10 ity of [place].2.[place] [phone] [facility] [address] 2020-04-26 2020-04-26 Outpatient R NENO [facility] [id number] Univers 14:15:00 14:15:00 SOPHIE nettles of [facility] 2020-04-26 2020-04-26 Orders Doctor SANTO 1.2.840.114 [id number] Univers 00:00:00 00:00:00 Only Unassigned, EVELYNE 350.1.13.10 ity of [place] [facility] 4.2.7.2.686 José Miguel as [phone] [facility] [address] 2020-04-24 2020-04-24 Telephone [facility] 1.2.840.114 8 [id number] Univers 00:00:00 00:00:00 Kristie Frederick 350.1.13.10 i ty of [place].2.[place] [phone] Me dical nal 044 [facility] 2020-04-20 2020-04-20 Patient Harman [facility] 1.2.840.114 [id number] Univers 00:00:00 00:00:00 Outreach Dennyольга GUALLPA 350.1.13.10 i ty of [facility] [place]2.7.2.[place] [phone] Me dical [address] 2020-04-12 2020-04-12 [facility] 1.2.840.114 [id number] Univers 00:00:00 00:00:00 Surgery Paty Silva Sumeet 350.1.13.10 ity of [place].2.[place] [phone] Md dical nal 204 [facility] 2020-04-11 2020-04-11 Office [facility] 1.2.815.728 [id number] Univers 14:43:59 16:04:48 Visit Sophie Frederick 350.1.13.10 i ty of [place].2.[place] [phone] Md dical nal 188 [facility] 2020-04-11 2020-04-11 Outpatient R NENO [facility] [id number] Univers 15:00:00 15:00:00 SOPHIE nettles of [facility] 2020-04-11 2020-04-11 Orders Doctor HANSA 1.2.840.114 [id number] Univers 00:00:00 00:00:00 Only Unassigned, EVELYNE 350.1.13.10 ity of [place] [facility] 4.2.7.2.686 José Miguel as [phone] [facility] [address] [place] 2020-03-19 2020-03-19 EXT MHH OP Magat, EXT MSRDP 1.2.840.114 1 [id number] [place] 00:00:00 00:00:00 Rebeca [facility] 350.1.13.58 Health 9.2.7.2.686 [id number] 0 2020-03-19 2020-03-19 EXT MHH OP Magat, EXT MSRDP 1.2.840.114 1 [id number] [place] 00:00:00 00:00:00 Rebeca Briseno LOCATION 350.1.13.58 Health 9.2.7.2.686 [id number] 0 2020-03-05 2020-03-05 Telephone [facility] 1.2.840.114 8 [id number] Univers 00:00:00 00:00:00 Kristie Frederick 350.1.13.10 i ty of [place] [phone] [address] 2020-02-27 2020-02-27 [facility] [id number] Univers 14:00:00 14:00:00 SOPHIE nettles [facility] 2020-02-27 2020-02-27 Refill [facility] 1.2.840.114 [id number] Univers 00:00:00 00:00:00 Kristie Frederick 350.1.13.10 i ty of [place] [phone] [address] 2020-02-23 2020-02-23 Orders Doctor HANSA 1.2.840.114 [id number] Univers 00:00:00 00:00:00 Only Unassigned, EVELYNE 350.1.13.10 ity of [place] [facility] 4.2.7.2.686 José Miguel as [phone] [address] 2020-02-23 2020-02-23 Telephone [facility] 1.2.840.114 8 [id number] Univers 00:00:00 00:00:00 Kristie Frederick 350.1.13.10 i ty of [place].2.[place] [phone] [address] 2020-02-20 2020-02-20 Outpatient R VICTOR MANUEL [facility] [id number] Univers 00:00:00 00:00:00 RAIZA nettles of [facility] 2020-02-20 2020-02-20 Telephone [facility] 1.2.840.114 [id number] Univers 00:00:00 00:00:00 Kristie Frederick 350.1.13.10 i ty of [place].2.[place] [phone] Md dic[address] 2020-02-13 2020-02-13 [facility] 1.2.840.114 [id number] Univers 00:00:00 00:00:00 Raiza Frederick 350.1.13.10 ity of [place].2.[place] [phone] Md dical [address] 2020-01-25 2020-01-25 [facility] 1.2.840.114 [id number] Univers 00:00:00 00:00:00 Kristie Frederick 350.1.13.10 i ty of [place].2.[place] [phone] Md dic[address] 2020-01-22 2020-01-22 [facility]phone [facility] 1.2.840.114 8 [id number] Univers 00:00:00 00:00:00 Raiza Frederick 350.1.13.10 ity of [place].2.[place] [phone] [facility] 231 [facility] 2020-01-09 2020-01-09 Outpatient R VERONICA [facility] 1029 [id number] Univers 00:00:00 00:00:00 KRISTIE nettles [facility] 2020-01-09 2020-01-09 Orders Doctor SANTO 1.2.840.114 [id number] Univers 00:00:00 00:00:00 Only Unassigned, EVELYNE [id number] ity of [place] [facility] [id number] José Miguel as [phone] [address] 2019-12-29 2019-12-29 Telephone [facility] 1.2.840.114 [id number] Univers 00:00:00 00:00:00 Kristie Frederick [id number] i [id number] [phone] [facility] 044 [facility] 2019-12-27 2019-12-27 Telephone [facility] 1.2.840.114 [id number] Univers 00:00:00 00:00:00 Kristie Frederick [id number] [id number] [phone] [facility] 231 [facility] 2019-12-26 2019-12-26 Refill [facility] 1.2.840.114 [id number] Univers 00:00:00 00:00:00 Kristie Frederick [id number] [id number] [phone] [facility] 044 [facility] 2019-12-21 2019-12-21 Orders Doctor HANSA 1.2.840.114 [id number] Univers 00:00:00 00:00:00 Only Unassigned, EVELYNE [id number] ity of [place] [facility] [id number] José Miguel as [phone] [address] 2019-12-20 2019-12-20 Office [facility] 1.2.840.114 [id number] Univers 10:45:47 11:05:47 Visit Kristie Frederick 350.1.13.10 i ty [id number] [phone] [address] 2019-12-20 2019-12-20 Outpatient R VERONICA [facility] [id number] Univers 11:00:00 11:00:00 KRISTIE nettles [facility] 2019-12-19 2019-12-19 Telephone [facility] 1.2.840.114 [id number] Univers 00:00:00 00:00:00 Kristie Frederick 350.1.13.10 i ty [place] [phone] Md dical nal 044 [facility] 2019-12-12 2019-12-12 Orders Doctor HANSA 1.2.840.114 [id number] Univers 00:00:00 00:00:00 Only Unassigned, EVELYNE 350.1.13.10 ity of [place] [facility] 4.2.7.2.686 José Miguel as [phone] [address] 2019-12-11 2019-12-11 Office [facility] 1.2.074.831 [id number] Univers 10:10:19 10:50:08 Visit Gema PRIMARY 350.1.13.10 ity of A [facility] [place]2.7.2.[place] [phone] [facility] [address] 2019-12-11 2019-12-11 Outpatient R [facility] [id number] Univers 10:00:00 10:00:00 GEMA ity of [facility] 2019-12-04 2019-12-04 Refill [facility] 1.2.840.114 [id number] Univers 00:00:00 00:00:00 Kristie Frederick 350.1.13.10 i ty of [place] [phone] [facility] 044 [facility] 2019-12-04 2019-12-04 Telephone [facility] 1.2.840.114 7 [id number] Univers 00:00:00 00:00:00 Kristie Frederick 350.1.13.10 i ty of [place] [phone] Md dical nal 231 [facility] 2019-12-01 2019-12-01 Outpatient R [facility] [id number] Univers 15:30:00 15:30:00 GEMA ity of [facility] 2019-11-30 2019-11-30 [facility] 1.2.840.114 [id number] Univers 00:00:00 00:00:00 Kristie Frederick 350.1.13.10 i ty of [place] [phone] Md macy baez 044 [facility] 2019-11-16 2019-11-16 [facility] 1.2.463.989 [id number] Univers 15:06:40 17:17:25 Visit Gema SPECIALTY 350.1.13.10 ity of [place] [facility] 4[place]2.7.2.[place] AT [phone] Md macy CORTEZ 198 [facility] 2019-11-16 2019-11-16 [facility] [id number] Univers 15:15:00 15:15:00 GEMA ity [facility] 2019-11-16 2019-11-16 Orders Doctor HANSA 1.2.840.114 [id number] Univers 00:00:00 00:00:00 Only Unassigned, EVELYNE 350.1.13.10 ity of [place] [facility] 4.2.7.2.686 José Miguel as [phone] [address] 2019-11-14 2019-11-14 Telephone [facility] 1.2.840.114 7 [id number] Univers 00:00:00 00:00:00 Kristie Frederick 350.1.13.10 i ty of [place] [phone] Md macy baez 044 [facility] 2019-11-06 2019-11-06 [facility] [id number] Univers 14:30:00 14:30:00 GEMA ity of [facility] 2019-10-27 2019-10-27 Outpatient [facility] [id number] Univers 00:00:00 00:00:00 ity of [facility] 2019-10-27 2019-10-27 Telephone [facility] 1.2.840.114 7 [id number] Univers 00:00:00 00:00:00 Kristie Frederick 350.1.13.10 i ty of [place] [phone] Md dical nal 044 [facility] 2019-10-27 2019-10-27 Orders Doctor HANSA 1.2.840.114 [id number] Univers 00:00:00 00:00:00 Only Unassigned, EVELYNE 350.1.13.10 ity of [place] [facility] 4.2.7.2.686 José Miguel as [phone] [address] 2019-10-26 2019-10-26 Telephone [facility] 1.2.840.114 7 [id number] Univers 00:00:00 00:00:00 Kristie Frederick 350.1.13.10 i ty [place] [phone] [address] 2019-10-23 2019-10-23 Office [facility] 1.2.526.[id number] [facility] 10:07:09 11:04:15 Visit Gema PRIMARY 350.1.13.10 ity of A [facility] 4.2.7.2.[place] [phone] [address] 2019-10-23 2019-10-23 Out[facility] [id number] Univers 10:00:00 10:00:00 GEMA ity of [facility] 2019-10-18 2019-10-18 Telephone [facility] 1.2.840.114 [id number] Univers 00:00:00 00:00:00 Kristie Frederick 350.1.13.10 i ty [place] [phone] [address] 2019-10-18 2019-10-18 [facility] 1.2.840.114 [id number] Univers 00:00:00 00:00:00 Kristie Frederick 350.1.13.10 i ty of [place] [phone] [address] 2019-10-06 2019-10-06 [facility] 1.2.840.114 [id number] Univers 00:00:00 00:00:00 Raiza Frederick 350.1.13.10 ity of [place].7.2.[place] [phone] Md dical nal 044 [facility] 2019-10-04 2019-10-04 Refill [facility] 1.2.840.114 [id number] Univers 00:00:00 00:00:00 Kristie Frederick 350.1.13.10 i ty of [place] [phone] Md dical nal [address] [place] [address] 2019-09-26 2019-09-26 [address]phone [address]114 7 [id number] Univers 00:00:00 00:00:00 Kristie Frederick 350.1.13.10 i ty of [place] 4[place]2.7.2.[place] [phone] Md dical nal [address] [place] [address] 2019-09-21 2019-09-21 Orders Doctor HANSA 1.2.840.114 [id number] Univers 00:00:00 00:00:00 Only Unassigned, EVELYNE 350.1.13.10 ity of [place] [facility] 4.2.7.2.686 José Miguel as [phone] [address] 2019-09-14 2019-09-14 Telephone [facility] 1.2.840.114 7 [id number] Univers 00:00:00 00:00:00 Kristie Frederick 350.1.13.10 i ty of [place] 4[place].2.[place] [phone] Md dic[address] 2019-09-08 2019-09-08 Outpatient R ALIX [facility] [id number] Univers 10:15:00 10:15:00 GEMA ity of [facility] 2019-09-01 2019-09-01 Telephone [facility] 12.840.114 7 [id number] Univers 00:00:00 00:00:00 Kristie Frederick 350.1.13.10 i ty of [place].2.[place] [phone] Md dical nal 044 [facility] 2019-08-30 2019-08-30 Office [facility] 1.2.840.114 [id number] Univers 12:42:28 13:14:49 Visit Madonna Frederick 350.1.13.10 ity of [place] 4[place]2.7.2.[place] [phone] Md dical nal 059 [facility] 2019-08-30 2019-08-30 Outpatient R [facility] [id number] Univers 13:00:00 13:00:00 MADONNA nettles o f [facility] 2019-08-30 2019-08-[address] [facility] 1.2.248.029 [id number] Univers 00:00:00 00:00:00 Feli Frederick 350.1.13.10 i ty of [place].2.[place] [phone] Md dical nal 085 [facility] 2019-08-29 2019-08-29 Orders Doctor HANSA 1.2.840.114 [id number] Univers 00:00:00 00:00:00 Only Unassigned, EVELYNE 350.1.13.10 ity of [place] [facility] 4.2.7.2.686 José Miguel as [phone] [address] 2019-08-28 2019-08-28 Office [facility] 1.2.167.574 [id number] Univers 13:44:42 14:24:45 Visit Eboni Nascimento PRIMARY 350.1.13.10 it[place] of [place].2.[place] [phone] Md dical [address] 2019-08-28 2019-08-28 Outpatient R [facility] [id number] Univers 14:00:00 14:00:00 EBONI itlul of [facility] 2019-08-28 2019-08-28 Telephone [facility] 1.2.840.114 [id number] Univers 00:00:00 00:00:00 Eboni J PRIMARY 350.1.13.10 ity of [place] [phone] Me dical [address] 2019-08-15 2019-08-15 Orders Doctor HANSA 1.2.840.114 [id number] Univers 00:00:00 00:00:00 Only Unassigned, EVELYNE 350.1.13.10 ity of [place] [facility] 4.2.7.2.686 José Miguel as [phone] [facility] [address] 2019-08-14 2019-08-14 Outpatient R [facility], [facility] [id number] Univers 15:30:00 15:30:00 EBONI itlul [facility] 2019-07-24 2019-08-14 Telemedici Pavan Craig [facility] 1.2.840.114 [id number] Univers 10:26:24 14:49:58 ne Visit SPECIALTY 350.1.13.10 ity of [facility] 4.2.7.2.[place] AT [phone] Md dicalejandro CORTEZ 201 [facility] 2019-08-14 2019-08-14 Outpatient R LAMPHERE, [facility] [id number] Univers 13:30:00 13:30:00 [facility] 2019-08-09 2019-08-09 Outpatient R VERONICA, [facility] [id number] Univers 09:00:00 09:00:00 KRISTIE tho [facility] 2019-08-09 2019-08-09 [facility]medici [facility] 1.2.840.114 [id number] Univers 08:24:16 08:39:16 ne Visit Kristie Frederick 350.1.13.10 ity of [place] [phone] Md dical nal 044 [facility] 2019-08-08 2019-08-08 Telephone [facility] 1.2.840.114 7 [id number] Univers 00:00:00 00:00:00 Kristie Frederick 350.1.13.10 i ty of [place] [phone] Md dical nal 044 [facility] 2019-08-07 2019-08-07 Telephone [facility] 1.2.840.114 [id number] Univers 00:00:00 00:00:00 Kristie Frederick 350.1.13.10 i ty [place] [phone] [address] 2019-08-01 2019-08-01 Telephone [facility] 1.2.840.114 7 [id number] Univers 00:00:00 00:00:00 Kristie Frederick 350.1.13.10 i ty [place] [phone] [address] 2019-07-26 2019-07-26 Orders Doctor HANSA 1.2.840.114 [id number] Univers 00:00:00 00:00:00 Only Unassigned, EVELYNE 350.1.13.10 ity of [place] [facility] 4.2.7.2.686 José Miguel as [phone] [address] 2019-07-24 2019-07-24 Outpatient PAVAN DEE [facility] [id number] Univers 09:30:00 09:30:00 ity [facility] 2019-07-21 2019-07-21 Telephone [facility] 1.2.840.114 7 [id number] Univers 00:00:00 00:00:00 Kristie Frederick 350.1.13.10 i ty [place] [phone] [address] 2019-07-17 2019-07-17 Telephone [facility] 1.2.840.114 7 [id number] Univers 00:00:00 00:00:00 Kristie Frederick 350.1.13.10 i ty [place] [phone] [address] 2019-07-14 2019-07-14 Outpatient [facility] [id number] Univers 00:00:00 00:00:00 ity [facility] 2019-07-14 2019-07-14 Orders Doctor SANTO 1.2.840.114 [id number] Univers 00:00:00 00:00:00 Only Unassigned, EVELYNE 350.1.13.10 [facility] 4.2.7.2.686 José Miguel as [phone] [address] 2019-07-12 2019-07-12 Outpatient R [facility] [id number] Univers 10:00:00 10:00:00 ity [facility] 2019-07-12 2019-07-12 Refill [facility] 1.2.840.114 [id number] Univers 00:00:00 00:00:00 Kristei Frederick 350.1.13.10 i ty [place] [phone] [address] 2019-07-06 2019-07-06 Telephone [facility] 1.2.840.114 7 [id number] Univers 00:00:00 00:00:00 Kristie Frederick 350.1.13.10 i ty [place] [phone] [address] 2019-07-04 2019-07-04 Telephone [facility] 1.2.840.114 7 [id number] Univers 00:00:00 00:00:00 Kristie Del Cid 350.1.13.10 it y of [place] 4.2.7.2.686 José Miguel as Professio [phone] [address] Office [facility] 2019-06-30 2019-06-30 Outpatient [facility] [id number] Univers 00:00:00 00:00:00 ity of [facility] 2019-06-30 2019-06-30 Telephone [facility] 1.2.840.114 7 [id number] Univers 00:00:00 00:00:00 Kristie Frederick 350.1.13.10 i ty of [place].2.[place] [phone] [address] 2019-06-30 2019-06-30 Orders Doctor SANTO 1.2.840.114 [id number] Univers 00:00:00 00:00:00 Only Unassigned, EVELYNE 350.1.13.10 ity of [place] [facility] 4.2.7.2.686 José Miguel as [phone] [address] 2019-06-29 2019-06-29 Telephone [facility] 1.2.840.114 7 [id number] Univers 00:00:00 00:00:00 Kristie Frederick 350.1.13.10 i ty [place] [phone] [address] 2019-06-28 2019-06-28 Telephone [facility] 1.2.840.114 7 [id number] Univers 00:00:00 00:00:00 Kristie Frederick 350.1.13.10 i ty [place] 4[place].2.[place] [phone] [address] 2019-06-26 2019-06-26 Telephone [facility] 1.2.840.114 7 [id number] Univers 00:00:00 00:00:00 Kristie Frederick 350.1.13.10 i ty [place] [phone] [address] 2019-06-22 2019-06-22 [facility] 1.2.840.114 7 [id number] Univers 00:00:00 00:00:00 Kristie Frederick 350.1.13.10 i ty [place] 4[place]2.[place] [phone] [address] 2019-06-16 2019-06-16 Telephone [facility] 1.2.840.114 7 [id number] Univers 00:00:00 00:00:00 Kristie Frederick 350.1.13.10 i ty [place] 4[place]2.[place] [phone] [address] 2019-06-16 2019-06-16 Refill [facility] 1.2.840.114 [id number] Univers 00:00:00 00:00:00 Kristie Frederick 350.1.13.10 i ty [place]2.[place] [phone] Md dical nal 044 [facility] 2019-06-13 2019-06-13 Fredy Rush, [facility] 1.2.840.[id number] [facility] 00:00:00 00:00:00 Raiza A Sumeet 350.1.13.10 ity of [place] 4[place]7.2.[place] [phone] Md dical nal 044 [facility] 2019-06-09 2019-06-09 Patient Lance, [facility] 1.2.840.114 [id number] Univers 00:00:00 00:00:[address] [facility] 350.1.13.10 i ty of [place] 4.2.7.2.686 José Miguel as Professio [phone] Md dical nal [address] Office [facility] 2019-06-08 2019-06-08 Patient Lance, [facility] 1.2.840.114 [id number] Univers 00:00:00 00:00:[address] [facility] 350.1.13.10 i ty of [place] 4.2.7.2.686 José Miguel as Professio [phone] Md dical nal 044 [facility] 2019-06-08 2019-06-08 Patient Lance [facility] 1.2.840.114 [id number] Univers 00:00:00 00:00:[address] [facility] 350.1.13.10 i ty of [place] 4.2.7.2.686 José Miguel as Professio [phone] Md dical nal 0[address] [place] Office [facility] 2019-06-07 2019-06-07 Patient Lance [facility] 1.2.840.114 [id number] Univers 00:00:00 00:00:00 Outreach [facility] 350.1.13.10 ity of [place] [phone] Md dical nal 231 [facility] 2019-06-06 2019-06-06 Telemedici [facility] 1.2.840.114 [id number] Univers 14:24:28 16:27:26 ne Visit Kristie Frederick 350.1.13.10 ity of [place] 4[place]7.2.[place] [phone] [address] 2019-06-06 2019-06-06 Outpatient R [facility] [id number] Univers 13:40:00 13:40:00 PETER ity [facility] 2019-06-06 2019-06-06 [facility] 1.2.840.114 [id number] Univers 00:00:00 00:00:00 Kristie Frederick 350.1.13.10 i ty [place] [phone] [address] 2019-06-01 2019-06-01 [facility] 1.2.840.114 [id number] Univers 00:00:00 00:00:00 Kristie Frederick 350.1.13.10 [place] ty [place] [phone] [address] 2019-06-01 2019-06-01 [facility] 1.2.840.114 7 [id number] Univers 00:00:00 00:00:00 Kristie Frederick 350.1.13.10 i ty [place] [phone] [address] 2019-05-31 2019-05-31 Outpatient [facility] [id number] Univers 00:00:00 00:00:00 ity of [facility] 2019-05-31 2019-05-31 [facility] 1.2.840.114 7 [id number] Univers 00:00:00 00:00:00 Kristie Frederick 350.1.13.10 [place] ty [place].2.[place] [phone] [address] 2019-05-29 2019-05-29 Telephone [facility] 1.2.840.114 7 [id number] Univers 00:00:00 00:00:00 Kristie Frederick 350.1.13.10 i ty [place] [phone] [address] 2019-05-29 2019-05-29 [facility] 1.2.840.114 7 [id number] Univers 00:00:00 00:00:00 Kristie Frederick 350.1.13.10 i ty [place] [phone] [address] 2019-05-24 2019-05-24 Outpatient PAVAN DEE [facility] [id number] [id number] Univers 15:45:00 15:45:00 ity of [facility] 2019-05-24 2019-05-24 [facility] 1.2.840.114 7 [id number] Univers 00:00:00 00:00:00 Kristie Frederick 350.1.13.10 [place] ty [place].2.[place] [phone] [address] 2019-05-15 2019-05-15 Refill [facility] 1.2.840.114 [id number] Univers 00:00:00 00:00:00 Kristie Frederick 350.1.13.10 [place] ty [place].2.[place] [phone] [address] 2019-05-10 2019-05-10 Telephone [facility] 1.2.840.114 7 [id number] Univers 00:00:00 00:00:00 Kristie Frederick 350.1.13.10 i ty [place].2.[place] [phone] [address] 2019-05-10 2019-05-10 Patient Doctor [facility] 1.2.840.114 [id number] Univers 00:00:00 00:00:00 Secure Msg Unassigned, SPECIALTY 350.1.13.10 ity [place] 4[place]2.7.2.[place] [phone] Md macy CORTEZ 201 [facility] 2019-04-28 2019-04-28 [facility]phone [facility] 1.2.840.114 7 [id number] Univers 00:00:00 00:00:00 Kristie Frederick 350.1.13.10 i ty [place] 4[place]2.[place].2.[place] [phone] Md macy baez 044 [facility] 2019-04-28 2019-04-28 Orders Doctor HANSA 1.2.840.114 [id number] Univers 00:00:00 00:00:00 Only Unassigned, EVELYNE 350.1.13.10 ity of [place] [facility] 4.2.7.2.686 José Miguel as [phone] [facility] [address] 2019-04-26 2019-04-26 Outpatient R PAVAN CRAIG [facility] [id number] Univers 15:45:00 15:45:00 ity [facility] 2019-04-26 2019-04-26 Telephone Pavan Craig 1.2.840.114 7 [id number] Univers 00:00:00 00:00:00 EVELYNE 350.1.13.10 it y of HOSPITAL 4.2.7.2.686 José Miguel as [phone] [facility] [address] 2019-04-13 2019-04-13 Outpatient R VERONICA [facility] [id number] [id number] Univers 15:40:00 15:40:00 KRISTIE nettles [facility] 2019-04-13 2019-04-13 [facility] 1.2.840.114 7 [id number] Univers 00:00:00 00:00:00 Kristie Frederick 350.1.13.10 [place] ty [place].2.[place] [phone] Md macy baez [address] [place] [address] 2019-04-12 2019-04-12 Outpatient R PAVAN CRAIG [facility] [id number] [id number] Univers 15:00:00 15:00:00 ity [facility] 2019-04-11 2019-04-11 Telephone [facility] 1.2.840.114 7 [id number] Univers 00:00:00 00:00:00 Kristie Frederick 350.1.13.10 i ty [place] 4[place].2.[place] [phone] [address] 2019-04-11 2019-04-11 Orders Doctor HANSA 1.2.840.114 [id number] Univers 00:00:00 00:00:00 Only Unassigned, EVELYNE 350.1.13.10 ity of [place] [facility] 4.2.7.2.686 José Miguel as [phone] [address] 2019-04-07 2019-04-07 Refill [facility] 1.2.840.114 [id number] Univers 00:00:00 00:00:00 Kristie Frederick 350.1.13.10 [place] ty [place] [phone] [address] 2019-04-06 2019-04-06 Telephone [facility] 1.2.840.114 7 [id number] Univers 00:00:00 00:00:00 Kristie Frederick 350.1.13.10 i ty [place] 4[place].7.2.[place] [phone] [address] 2019-04-05 2019-04-05 Telephone [facility] 1.2.840.114 7 [id number] Univers 00:00:00 00:00:00 Kristie Frederick 350.1.13.10 i ty [place] 4[place].2.[place] [phone] [address] 2019-04-03 2019-04-03 Orders Doctor HANSA 1.2.840.114 [id number] Univers 00:00:00 00:00:00 Only Unassigned, EVELYNE 350.1.13.10 ity of [place] [facility] 4.2.7.2.686 José Miguel as [phone] [address] 2019-03-30 2019-03-30 Telephone [facility] 1.2.840.114 7 [id number] Univers 00:00:00 00:00:00 Kristie Frederick 350.1.13.10 i ty [place] [phone] [address] 2019-03-28 2019-03-28 [facility] 1.2.840.114 7 [id number] Univers 00:00:00 00:00:00 Kristie Frederick 350.1.13.10 i ty [place].2.[place] [phone] [address] 2019-03-27 2019-03-27 [facility] 1.2.840.114 7 [id number] Univers 00:00:00 00:00:00 Kristie Frederick 350.1.13.10 i ty [place].2.[place] [phone] [address] 2019-03-24 2019-03-24 Emergency [facility] 1.2.548.489 [id number] Univers 12:20:24 16:24:00 Gabotracy Ольга ColonSwanzey 350.1.13.10 ity of [place]2.7.2.[place] [phone] [facility] [address] [place] [address] 2019-03-24 2019-03-24 Emergency X [facility] ERT [id number] Univers 12:20:24 16:24:00 SOBIA ity [facility] 2019-03-21 2019-03-21 Telephone [facility] [place] 1.2.840.114 [id number] Univers 00:00:00 00:00:00 Kristie KNOX 350.1.13.10 it y of [place].2.[place] [phone] [facility] [address] 2019-03-21 2019-03-21 [facility]phone [facility] 1.2.840.114 7 [id number] Univers 00:00:00 00:00:00 Kristie [place] 350.1.13.10 i ty [place].2.[place] [phone] Md dical nal 044 [facility] 2019-03-09 2019-03-09 Moisture Tester, Adc Cardio Fac [facility] 1. 2.840.114 [id number] Univers 15:02:24 15:50:41 Only 1, Adc Cardio Fac Room [place] 350.1. 13.10 ity of [place] MarcelinoIshan. Maurizio 4.2.7.2.686 [place] [facility] [phone] Md dical nal 059 [facility] 2019-03-08 2019-03-08 Telephone [facility] 1.2.840.114 [id number] Univers 00:00:00 00:00:00 Kristie Frederick 350.1.13.10 [id number] [phone] Md dical nal 044 [facility] 2019-03-07 2019-03-07 Telephone [facility] 1.2.840.114 [id number] Univers 00:00:00 00:00:00 Kristie Frederick 350.1.13.10 i [id number] [phone] Md dical nal 044 [facility] 2019-02-28 2019-02-28 Telephone [facility] 1.2.840.114 [id number] Univers 00:00:00 00:00:00 Kristie Frederick 350.1.13.10 i [id number] [phone] Md dical nal 044 [facility] 2019-02-24 2019-02-24 Orders Doctor HANSA 1.2.840.114 [id number] Univers 00:00:00 00:00:00 Only Unassigned, EVELYNE 350.1.13.10 ity of [place] [facility] 4.2.7.2.686 José Miguel as [phone] [address] 2019-02-24 2019-02-24 Telephone [facility] 1.2.840.114 7 [id number] Univers 00:00:00 00:00:00 Kristie Frederick 350.1.13.10 i ty [place] [phone] Md dical nal 044 [facility] 2019-02-22 2019-02-22 Refill Andi Castrejon [facility] 1.2.840.114 [id number] Univers 00:00:00 00:00:00 C Sumeet 350.1.13.10 i [place] [phone] [facility] nal [facility] 2018-10-26 2018-10-26 Transition Osiris Dempsey 1.2.840.114 [id number] Univers 00:00:00 00:00:00 of Care Becca Briseno Roberts [id number] i [id number] [phone] [facility] [address] 2018-10-21 2018-10-25 [facility] Amos Andrews [facility] 1.2.840.1 [id number] Univers 06:52:14 16:05:00 Encounter Ricky Sher [id number] it[place] of [id number] [phone] [facility] [address] [place] 2018-10-21 2018-10-21 Telephone Andi Castrejon [facility] 1.2.840.114 [id number] Univers 00:00:00 00:00:00 C [facility] [id number] it y of [place] 4.2.7.2.686 José Miguel as Professio [phone] [place] [address] [address] One 2018-10-13 2018-10-15 [facility] BalderasJoaquinGrei [facility] 1.2.840.1 14 [id number] Univers 09:58:28 18:45:00 Encounter Eliu Wallace [id number] [place] of [id number] [phone] [place] [id number] [place] 2018-10-07 2018-10-07 Telephone Andi Castrejon [facility] 1.2.840.114 [id number] Univers 00:00:00 00:00:00 C [place] 350.1.13.10 [id number] [phone] Md dical nal [address] [place] [address] 2018-09-27 2018-09-27 Refill Andi Castrejon [facility] 1.2.840.114 [id number] Univers 00:00:00 00:00:00 C [place] 350.1.13.10 [id number] [phone] Md dical nal [address] [place] [address] 2018-09-27 2018-09-27 Orders Doctor HANSA 1.2.840.114 [id number] Univers 00:00:00 00:00:00 Only Unassigned, EVELYNE 350.1.13.10 ity of [place] [facility] 4.2.7.2.686 José Miguel as [phone] [address] 2018-09-23 2018-09-23 Andi Henriquez [facility] 1.2.840.114 [id number] Univers 00:00:00 00:00:00 C [place] 350.1.13.10 i [id number] [phone] [facility] nal [address] [place] [address] 2018-09-22 2018-09-22 Telephone Andi Castrejon [facility] 1.2.840.114 [id number] Univers 00:00:00 00:00:00 C [place] 350.1.13.10 i [id number] [phone] Md dical nal [address] [place] [address] 2018-09-22 2018-09-22 Orders Doctor HANSA 1.2.840.114 [id number] Univers 00:00:00 00:00:00 Only Unassigned, EVELYNE 350.1.13.10 ity of [place] [facility] 4.2.7.2.686 José Miguel as [phone] [address] 2018-09-20 2018-09-20 Telephone Andi Castrejon [facility] 1.2.840.114 [id number] Univers 00:00:00 00:00:00 C [place] 350.1.13.10 i [id number] [phone] [address] 2018-09-19 2018-09-19 Telephone Andi Castrejon [facility] 1.2.840.114 [id number] Univers 00:00:00 00:00:00 C [place] 350.1.13.10 [id number] [phone] [address] 2018-09-15 2018-09-15 Office Andi Castrejon [facility] 1.2.840.114 [id number] Univers 12:31:10 13:11:10 Visit C [place] 350.1.13.10 [place] [phone] [address] 2018-09-15 2018-09-15 Orders Doctor HANSA 1.2.840.114 [id number] Univers 00:00:00 00:00:00 Only Unassigned, EVELYNE 350.1.13.10 ity of [place] [facility] [id number] José Miguel as [phone] [address] 2018-09-09 2018-09-09 Telephone Andi Castrejon [facility] 1.2.840.114 [id number] Univers 00:00:00 00:00:00 C [place] 350.1.13.10 [id number] [phone] [address] 2018-09-09 2018-09-09 Telephone Andi Castrejon [facility] 1.2.840.114 [id number] Univers 00:00:00 00:00:00 C [place] 350.1.13.10 [id number] [phone] [address] 2018-09-09 2018-09-09 Telephone Andi Castrejon [facility] 1.2.840.114 [id number] Univers 00:00:00 00:00:00 C [place] 350.1.13.10 [id number] [phone] [address] 2018-08-27 2018-08-27 Orders Doctor HANSA 1.2.840.114 [id number] Univers 00:00:00 00:00:00 Only Unassigned, EVELYNE 350.1.13.10 ity of [place] [facility] [id number] [facility] as [phone] [address] 2018-06-23 2018-06-22 Inpatient E [facility] [id number] [facility] 04:46:00 20:30:00 2018-06-05 2018-06-05 Emergency E [facility] 9118 [facility] 13:21:00 13:21:00 2018-05-30 2018-05-30 Outpatient JONATHAN COOK [facility] [id number] Univers 00:00:00 00:00:00 [facility] 2018-05-30 2018-05-30 Outpatient R JONATHAN LING [facility] [id number] Univers 00:00:00 00:00:00 [facility] Results Test Description Test Time Test Comments Results Result Comments Source POCT-GLUCOSE METER 2017-09-05 05:32:00 Test Item Value Reference Range Interpretation Comme [facility] POC-GLUCOSE METER (BEAKER) (test 100 mg/dL 70-110 TESTED AT [facility] [address] [facility] code = 1538) [facility] [address] [id number] 04:38:00 Test Item Value Reference Range Interpretation Comments PHOSPHORUS (BEAKER) (test code = 4.1 mg/dL 2.5-4.5 604) [id number] 04:38:00 Test Item Value Reference Range Interpretation Comments MAGNESIUM (BEAKER) (test code = 1.9 mg/dL 1.5-3.0 627) BASIC METABOLIC [id number] 04:38:00 Test Item Value Reference Range Interpretation Comments SODIUM (BEAKER) 141 meq/L 135-148 (test code = 381) POTASSIUM (BEAKER) 4.0 meq/L 3.5-5.5 (test code = 379) CHLORIDE (BEAKER) 107 meq/L 98-106 H (test code = 382) CO2 (BEAKER) (test 25 meq/L 20-31 code = 355) BLOOD UREA NITROGEN 12 mg/dL 10-26 (BEAKER) (test code = 354) CREATININE (BEAKER) 0.69 mg/dL 0.50-1.20 (test code = 358) GLUCOSE RANDOM 90 mg/dL 70-110 (BEAKER) (test code = 652) CALCIUM (BEAKER) 9.5 mg/dL 8.5-10.5 (test code = 697) EGFR (BEAKER) (test 119 mL/min/1.73 ESTIM ATED GFR IS code = 1092) sq m NOT ACCURATE CREATININE CLEARANCE IN PREDICTING GLOMERULAR FILTRATION RATE . ESTIMATED GFR I S NOT APPLICABLE FOR DIALYSIS PATIEN TS. CBC W/PLT COUNT & AUTO [id number] 04:13:00 Test Item Value Reference Range Interpretation Comments WHITE BLOOD CELL COUNT (BEAKER) 5.5 K/ L 4.0-10.0 (test code = 775) RED BLOOD CELL COUNT (BEAKER) 4.36 M/ L 4.20-5.80 (test code = 761) HEMOGLOBIN (BEAKER) (test code = 13.4 GM/DL 13.0-16.8 410) HEMATOCRIT (BEAKER) (test code = 39.8 % 40.0-50.0 L 411) MEAN CORPUSCULAR VOLUME (BEAKER) 91.1 fL 82.0-98.0 (test code = 753) MEAN CORPUSCULAR HEMOGLOBIN 30.7 pg 27.0-33.0 (BEAKER) (test code = 751) MEAN CORPUSCULAR HEMOGLOBIN CONC 33.7 GM/DL 32.0-36.0 (BEAKER) (test code = 752) RED CELL DISTRIBUTION WIDTH 14.6 % 12.0-15.0 (BEAKER) (test code = 412) PLATELET COUNT (BEAKER) (test 212 K/CU MM 150-430 code = 756) MEAN PLATELET VOLUME (BEAKER) 9.1 fL 6.5-10.5 (test code = 754) NUCLEATED RED BLOOD CELLS 0 /100 WBC 0-0 (BEAKER) (test code = 413) NEUTROPHILS RELATIVE PERCENT 44 % (BEAKER) (test code = 429) LYMPHOCYTES RELATIVE PERCENT 46 % (BEAKER) (test code = 430) MONOCYTES RELATIVE PERCENT 5 % (BEAKER) (test code = 431) EOSINOPHILS RELATIVE PERCENT 4 % (BEAKER) (test code = 432) BASOPHILS RELATIVE PERCENT 0 % (BEAKER) (test code = 437) NEUTROPHILS ABSOLUTE COUNT 2.40 K/ L 1.80-8.00 (BEAKER) (test code = 670) LYMPHOCYTES ABSOLUTE COUNT 2.60 K/ L 1.48-4.50 (BEAKER) (test code = 414) MONOCYTES ABSOLUTE COUNT (BEAKER) 0.30 K/ L 0.00-1.30 (test code = 415) EOSINOPHILS ABSOLUTE COUNT 0.20 K/ L 0.00-0.50 (BEAKER) (test code = 416) BASOPHILS ABSOLUTE COUNT (BEAKER) 0.00 K/ L 0.00-0.20 (test code = 417) POCT-GLUCOSE [id number] 20:18:00 Test Item Value Reference Range Interpretation Comments POC-GLUCOSE METER 88 mg/dL 70-110 TESTED AT [address] (BEAKER) (test code = [facility] 1538) [place] [address] POCT-GLUCOSE [id number] 18:01:00 Test Item Value Reference Range Interpretation Comments POC-GLUCOSE METER 104 mg/dL 70-110 TESTED AT [address] (BEAKER) (test code [facility] = 1538) [place] [address] POCT-GLUCOSE [id number] 13:13:00 Test Item Value Reference Range Interpretation Comments POC-GLUCOSE METER 74 mg/dL 70-110 TESTED AT [address] [facility] (test code = [facility] 1538) [place] [address] URINALYSIS W/ REFLEX URINE [id number] 02:14:00 Test Item Value Reference Range Interpretation Comments COLOR (BEAKER) (test code = 470) Yellow CLARITY (BEAKER) (test code = 469) Hazy SPECIFIC GRAVITY UA (BEAKER) (test 1.018 1.001-1.035 code = 468) PH UA (BEAKER) (test code = 467) 6.0 5.0-8.0 PROTEIN UA (BEAKER) (test code = Negative Negative 464) GLUCOSE UA (BEAKER) (test code = Negative Negative 365) KETONES UA (BEAKER) (test code = Negative Negative 371) BILIRUBIN UA (BEAKER) (test code = Negative Negative 462) BLOOD UA (BEAKER) (test code = Negative Negative 461) NITRITE UA (BEAKER) (test code = Negative Negative 465) LEUKOCYTE ESTERASE UA (BEAKER) Trace Negative A (test code = 466) UROBILINOGEN UA (BEAKER) (test 2.0 mg/dL 0.2-1.0 H code = 463) RBC UA (BEAKER) (test code = 519) < /HPF WBC UA (BEAKER) (test code = 520) 3 /HPF MUCUS (BEAKER) (test code = 1574) Rare SQUAMOUS EPITHELIAL (BEAKER) (test 1 /HPF code = 516) AMORPHOUS CRYSTALS (BEAKER) (test Occasional code = 1584) SOURCE(BEAKER) (test code = 2795) TROPONIN [id number] 00:41:00 Test Item Value Reference Range Interpretation Comments TROPONIN I (BEAKER) (test code = 397) < ng/mL 0.00-0.15 Troponin I (TnI) levels must be interpreted in the context of the presenting symptoms and the clinical findings. Elevated TnI levels indicate myocardial damage, but are not specific for ischemic heart disease. Elevated TnI levels are seen in patients with other cardiac conditions (including myocarditis and congestive heart failure), and slight TnI elevations occur in patients with other conditions, including sepsis, renal failure, acidosis, acute neurological disease, and persistent tachyarrhythmia.BASIC METABOLIC [id number] 00:37:00 Test Item Value Reference Range Interpretation Comments SODIUM (BEAKER) 143 meq/L 135-148 (test code = 381) POTASSIUM (BEAKER) 4.2 meq/L 3.5-5.5 Specimen slightly (test code = 379) hemolyzed CHLORIDE (BEAKER) 108 meq/L 98-106 H (test code = 382) CO2 (BEAKER) (test 23 meq/L 20-31 code = 355) BLOOD UREA NITROGEN 15 mg/dL 10-26 (BEAKER) (test code = 354) CREATININE (BEAKER) 0.66 mg/dL 0.50-1.20 Specimen slightly (test code = 358) hemolyzed GLUCOSE RANDOM 84 mg/dL 70-110 (BEAKER) (test code = 652) CALCIUM (BEAKER) 9.7 mg/dL 8.5-10.5 (test code = 697) EGFR (BEAKER) (test mL/min/1.73 INSUFFIC IENT CLINICAL code = 1092) sq m DATA TO CALCULA TE ESTIMATED GFR. [id number] 00:33:00 Test Item Value Reference Range Interpretation Comments MAGNESIUM (BEAKER) 2.3 mg/dL 1.5-3.0 Specimen slightly (test code = 627) hemolyzed [id number] 00:33:00 Test Item Value Reference Range Interpretation Comments PHOSPHORUS (BEAKER) 3.8 mg/dL 2.5-4.5 Specimen slightly (test code = 604) hemolyzed CBC W/PLT COUNT & AUTO [id number] 00:18:00 Test Item Value Reference Range Interpretation Comments WHITE BLOOD CELL COUNT (BEAKER) 7.5 K/ L 4.0-10.0 (test code = 775) RED BLOOD CELL COUNT (BEAKER) 4.66 M/ L 4.20-5.80 (test code = 761) HEMOGLOBIN (BEAKER) (test code = 14.5 GM/DL 13.0-16.8 410) HEMATOCRIT (BEAKER) (test code = 42.1 % 40.0-50.0 411) MEAN CORPUSCULAR VOLUME (BEAKER) 90.2 fL 82.0-98.0 (test code = 753) MEAN CORPUSCULAR HEMOGLOBIN 31.1 pg 27.0-33.0 (BEAKER) (test code = 751) MEAN CORPUSCULAR HEMOGLOBIN CONC 34.5 GM/DL 32.0-36.0 (BEAKER) (test code = 752) RED CELL DISTRIBUTION WIDTH 14.0 % 12.0-15.0 (BEAKER) (test code = 412) PLATELET COUNT (BEAKER) (test 219 K/CU MM 150-430 code = 756) MEAN PLATELET VOLUME (BEAKER) 9.8 fL 6.5-10.5 (test code = 754) NUCLEATED RED BLOOD CELLS 0 /100 WBC 0-0 (BEAKER) (test code = 413) NEUTROPHILS RELATIVE PERCENT 47 % (BEAKER) (test code = 429) LYMPHOCYTES RELATIVE PERCENT 44 % (BEAKER) (test code = 430) MONOCYTES RELATIVE PERCENT 6 % (BEAKER) (test code = 431) EOSINOPHILS RELATIVE PERCENT 3 % (BEAKER) (test code = 432) BASOPHILS RELATIVE PERCENT 1 % (BEAKER) (test code = 437) NEUTROPHILS ABSOLUTE COUNT 3.50 K/ L 1.80-8.00 (BEAKER) (test code = 670) LYMPHOCYTES ABSOLUTE COUNT 3.30 K/ L 1.48-4.50 (BEAKER) (test code = 414) MONOCYTES ABSOLUTE COUNT (BEAKER) 0.40 K/ L 0.00-1.30 (test code = 415) EOSINOPHILS ABSOLUTE COUNT 0.20 K/ L 0.00-0.50 (BEAKER) (test code = 416) BASOPHILS ABSOLUTE COUNT (BEAKER) 0.00 K/ L 0.00-0.20 (test code = 417) RAD, CHEST, 1 VIEW, NON [id number] 00:09:00Reason for exam:->ALTERED MENTAL STATUSShould this be performed at the bedside?->YesFINAL REPORT Chest, 1 view. History: Mental status. Comparison: None available.Impression:The cardiomediastinal silhouette is within normal limits for a portable exam. Prominent perihilar vascular markings can be seen with pulmonary vascular congestion versus atypical pneumonia. No lobar consolidation or pleural effusion. Osteopenia. Deformity of the distal third of the right cla vicle, likely posttraumatic. A cutaneous gastrostomy tube overlies the expected location of the gastric body. Signed: Kendra Sterling Verified Date/Time: 09/04/2017 00:09:13 Reading Location: [address] Transitional Reading Room CT, BRAIN, WITHOUT [id number] 00:01:00Reason for exam:- >ALTERED MENTAL STATUSWhat is the patient's sedation requirement?->No SedationFINAL REPORT CT, BRAIN, WITHOUT CONTRAST CLINICAL INDICATION: ALTERED MENTAL STATUSams COMPARISON: None TECHNIQUE: Noncontrast axial CT imaging of the brain and skull. DOSE REDUCTION: Dose modulation, iterative reconstruction, and/or weight-based adjustment of the mA/kV was utilized to reduce the radiation dose to as low as reasonably achievable. FINDINGS:Large volume resection of the left frontal lobe with craniectomy resulting in marked volume loss. There is centrally convex mass effect, suspected vasogenic edema and approximately millimeters rightward midline shift at the level of the foramen of Monro. No discernible acute ischemic changes are present, however anterior changes might be masked. No ventriculomegaly is present. There is no discernible intracranial hemorrhage.Visible paranasal sinuses are clear. Orbital contents are unremarkable for technique. IMPRESSION: Volume loss and inward convex displacement following craniectomy with approximately 6 millimeters rightward midline shift at the level of the foramen of Monro. 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 Neurosurgical consultation is advised. If there is persistent clinical concern for intracranial pathology, MR examination is recommended for further characterization. Signed: JR King Robert MDReplafayette regional health center Verified Date/Time: 09/04/2017 00:01:45 Reading Location: [address] Reading Room
[2022-01-18] MEDS ORDERED: MORPHINE 4 MG/ML SYR ONE (20:00)
--- NOTE | 2022-01-18 20:24 | EDPHYS ---
Physician Documentation [facility] Name: Elliot Hathaway Age: 61 yrs Sex: Male : 1960 Arrival Date: 01/18/2022 Time: 19:18 Bed 6 Private MD: ED Physician Abelardo Babb HPI: 01/18 19:57 This 61 yrs old Male presents to ER via EMS with complaints of tracheostomy tube fell rn out. 19:57 Pt brought in by EMS after found to have tracheostomy tube displaced when they went to rn suction him, happened sometime today. Otherwise acting normal, no fever, no difficulty breathing. . Onset: The symptoms/episode began/occurred today. Severity of symptoms: At their worst the symptoms were mild in the emergency department the symptoms are unchanged. It is unknown whether or not the patient has had similar symptoms in the past. Tracheostomy tube last changed by home health nurse yesterday, then noted to be displaced today. . Historical: - Allergies: 19:51 No Known Allergies; kd3 - Immunization history:: Adult Immunizations up to date. - Social history:: Smoking status: unknown. - Family history:: not pertinent. - Hospitalizations: : No recent hospitalization is reported. - History obtained from: son, EMS. ROS: 19:57 Unable to obtain ROS due to patient's speech is incomprehensible. rn Exam: 19:57 Constitutional: This is a well developed, well nourished patient who is awake, alert, rn and in no acute distress. Head/Face: S/p craniotomy in past. Neck: Patent tracheostomy stoma, no purulence or surrounding erythema Cardiovascular: Regular rate and rhythm. No pulse deficits. Respiratory: No increased work of breathing, no retractions or nasal flaring. Abdomen/GI: Soft, non-tender Skin: Warm, dry MS/ Extremity: Pulses equal, no cyanosis. Neuro: Awake and alert Vital Signs: 19:20 BP 134 / 62; Pulse 87; Resp 23; Pulse Ox 96% on R/A; kd3 19:20 Weight 66 kg; kd3 20:02 Temp 98.2(A); kd3 20:58 Resp 18; kd3 Procedures: 20:21 Performed Tracheostomy tube replaced, size 4, tolerated well without complication.. rn MDM: 19:20 Patient medically screened. rn 20:21 Differential Diagnosis tracheostomy displacement. Data reviewed: vital signs, nurses rn notes, and as a result, I will discharge patient. Counseling: I had a detailed discussion with the patient and/or guardian regarding: the historical points, exam findings, and any diagnostic results supporting the discharge/admit diagnosis, the need for outpatient follow up, to return to the emergency department if symptoms worsen or persist or if there are any questions or concerns that arise at home. Response to treatment: the patient's symptoms have markedly improved after treatment, the patient's condition has returned to base line, the patient is now symptom free, and as a result, I will discharge patient. Special discussion: I discussed with the patient/guardian in detail that at this point there is no indication for admission to the hospital. It is understood, however, that if the symptoms persist or worsen the patient needs to return immediately for re-evaluation. ED course: Son here at bedside, agrees at baseline, states was time for ativan and morphine to be given so requested it be given now. Suctioned patient, no resp distress, afebrile, no oxygen requirement. . Administered Medications: 20:02 Drug: morphine 4 mg Route: IM; Site: right deltoid; kd3 20:57 Follow up: Response: No adverse reaction; Pain is decreased kd3 20:34 Drug: Ativan (LORazepam) 0.5 mg Route: IM; Site: left deltoid; kd3 20:57 Follow up: Response: No adverse reaction; Anxiety decreased kd3 Disposition Summary: 01/18/22 20:24 Discharge Ordered Location: Home rn Problem: new rn Symptoms: have improved rn Condition: Stable rn Diagnosis - Encounter for attention to tracheostomy - Displacement of tracheostomy tube rn Followup: rn - With: Private Physician - When: As needed - Reason: Recheck today's complaints, Re-evaluation by your physician Discharge Instructions: - Discharge Summary Sheet rn - How to Clean a Tracheostomy Tube, Adult rn - How to Change a Cuffless Tracheostomy Tube, Adult rn Forms: - Medication Reconciliation Form rn - Thank You Letter rn - Antibiotic oil burner - Prescription Opioid Use rn Signatures: Abelardo Babb MD MD rn Doucette, Kyli, RN RN kd3
--- NOTE | 2022-01-18 20:24 | ER ---
Nurse's Notes [facility] Name: Elliot Hathaway Age: 61 yrs Sex: Male : 1960 Arrival Date: 01/18/2022 Time: 19:18 Bed 6 Private MD: Diagnosis: Encounter for attention to tracheostomy-Displacement of tracheostomy tube Presentation: 01/18 19:20 Chief complaint: EMS states: PT is on hospice from correction, [facility]. kd3 EMS toned out for pt Trach coming out. [facility] stated that the Trach had come out before and they had to place a smaller one in its place but this time they couldn't put it back in. 19:20 Coronavirus screen: Vaccine status: Patient reports receiving the 2nd dose of the covid kd3 vaccine. Ebola Screen: No symptoms or risks identified at this time. Initial Sepsis Screen: Does the patient meet any 2 criteria? No. Patient's initial sepsis screen is negative. Does the patient have a suspected source of infection? No. Patient's initial sepsis screen is negative. Risk Assessment: Do you want to hurt yourself or someone else? Patient reports no desire to harm self or others. Onset of symptoms was January 18, 2022. 19:20 Method Of Arrival: EMS: [facility] ambulance kd3 19:20 Acuity: KRISTINE 3 kd3 Triage Assessment: 19:51 General: Appears in no apparent distress. Behavior is cooperative. Pain: Unable to use kd3 pain scale. FLACC scale score is 0 out of 10. Respiratory: Trachea midline. Historical: - Allergies: 19:51 No Known Allergies; kd3 - Immunization history:: Adult Immunizations up to date. - Social history:: Smoking status: unknown. - Family history:: not pertinent. - Hospitalizations: : No recent hospitalization is reported. - History obtained from: son, EMS. Screenin:54 Abuse screen: Denies threats or abuse. Denies injuries from another. Nutritional kd3 screening: No deficits noted. Tuberculosis screening: No symptoms or risk factors identified. Fall Risk None identified. Assessment: 19:52 General: Pt originally came with a 5.0 Shiley that was dislodged from the correction. kd3 RT to the bedside for assistance. 4.0 Shiley was placed and secured. . 20:35 General: RT to bedside for assistance to suction . kd3 Vital Signs: 19:20 BP 134 / 62; Pulse 87; Resp 23; Pulse Ox 96% on R/A; kd3 19:20 Weight 66 kg; kd3 20:02 Temp 98.2(A); kd3 20:58 Resp 18; kd3 ED Course: 19:18 Patient arrived in ED. eb 19:20 Abelardo Babb MD is Attending Physician. rn 19:48 Juany Smith, RN is Primary Nurse. kd3 19:51 Triage completed. kd3 19:51 Arm band placed on right wrist. kd3 19:54 Patient has correct armband on for positive identification. kd3 19:54 Trach replacement. Patient did not have IV access during this emergency room visit. kd3 Administered Medications: 20:02 Drug: morphine 4 mg Route: IM; Site: right deltoid; kd3 20:57 Follow up: Response: No adverse reaction; Pain is decreased kd3 20:34 Drug: Ativan (LORazepam) 0.5 mg Route: IM; Site: left deltoid; kd3 20:57 Follow up: Response: No adverse reaction; Anxiety decreased kd3 Medication: 19:55 VIS not applicable for this client. kd3 Outcome: 19:55 Condition: stable kd3 20:24 Discharge ordered by . rn 20:57 Discharged to home via ambulance. kd3 20:57 Discharge instructions given to patient, family, Instructed on discharge instructions, follow up and referral plans. Demonstrated understanding of instructions, follow-up care. 21:49 Patient left the ED. kd3 Signatures: Abelardo Babb MD MD rn Botello, Elizabeth Juany Smith, EMA RN kd3
[2022-01-18] MEDS ORDERED: LORazepam 2 MG/ML VIAL ONE (20:28)
[2022-01-18 21:55] VITALS: BP 134/62; O2SAT 96
[2022-01-18 21:56] VITALS: TEMP 98.2
== END 2022-01-18 21:49 | disposition home or self-care (01) ==
LOC: ER 19:10
DX: J95.09 Other tracheostomy complication (principal)
CPT/HCPCS: 96372; 99283

== ENCOUNTER 2022-02-01 23:58 | Emergency (ER) | payer OTHER ==
--- OUTSIDE RECORDS SUMMARY | 2022-02-02 00:03 | XMS REPORT | Continuity of Care Document ---
:1960 Author Organization [facility] t Address [address] [place] [address] Care Team Providers Name Role Phone No MD, Pcp Primary Care Physician Unavailable REBECA JUAREZ Attending Clinician Unavailable AWILDA Attending Clinician Unavailable ROSALIE MAGAÑA Attending Clinician Unavailable AWILDA Admitting Clinician Unavailable FARNAZ DELGADO Admitting Clinician Unavailable Payers Payer Name Policy Type Policy Number Effective Date Expiration Date S [facility] [employer] [id number] 2019 00:00:00 Problems Condition Condition Condition Status Onset Resolution Last Treating Co mments Source Name Details Category Date Date Treatment Clinician Date Altered Altered Disease Active [facility]04 [facility] 00:00: Medical 00 Center S/P S/P Disease Active [facility] cr[facility] cr[facility]otomy 09[facility]04 [facility] 00:00: Medical 00 Center S/P ORIF S/P ORIF Disease Active Harri s (open (open 08-07 Health reduction reduction 00:00: internal internal 00 fixation) fixation) fracture fracture Occult Occult Disease Active [facility] blood blood 07-13 [facility] positive positive 00:00: stool stool 00 Chronic Chronic Disease Active Stefan hepatitis hepatitis 05-30 [facility] C without C without 00:00: hepatic hepatic 00 coma coma Hepatic Hepatic Disease Active Stefan cirrhosis cirrhosis 05-30 00:00: 00 Overweight Overweight Disease Active H arris (278.02) (278.02) 04-13 Health 00:00: 00 distal distal Disease Active [facility] ulna fx ulna fx 04-13 Health 00:00: 00 History of History of Disease Active [facility] alcohol alcohol 04-13 Health abuse abuse 00:00: 00 History of History of Disease Active [facility] positive positive 04-13 Health PPD PPD 00:00: 00 \major \major Disease Active Overview: [facility] depression depression 04-13 [facility] managed by managed by 00:00: g of this private private 00 note psychiatri psychiatri might be [facility]. [facility] [employer]TE[employer] CE MALE Occult Blood (50+ yearly): Cholest (20+ q 5 years): Td (adult 11+):04/22 ppd: + quantifer on +Pneumova x adult:07/09 5 Fluzone: History of History of Disease Active [facility] colon colon 04-13 [facility] polyps polyps 00:00: 00 History of History of Disease Active [facility]is humerus humerus 04-13 [facility] fracture fracture 00:00: 00 Allergies, Adverse Reactions, Alerts This patient has no known allergies or adverse reactions. Family History Family Member Diagnosis Comments Start Date Stop Date Source Natural father Cancer [facility] Natural mother Arthritis [facility] Natural mother Hypertension [facility] Social History Social Habit Start Date Stop Date Quantity Comments Source Alcohol intake 2021-06-07 2021-06-07 Current [facility] 00:00:00 00:00:00 non-drinker of alcohol (finding) Tobacco use and 2017-09-04 2017-09-[address] [facility] 00:00[facility]00 [facility]00 [facility] Alcohol Comment 2014-09-26 2014-09-26 quit 09/1997 [facility] 00:00:00 00:00:00 Sex [birth year] At [birth year] Stefan hanson 00:00:00 00:00:00 Smoking Status Start Date Stop Date Source Tobacco smoking consumption unknown [facility] Never smoker [facility] Center Medications Ordered Filled Start Stop Current Ordering Indication Dosage Frequency Signature Comments Components Source Medication Medication Date Date Medication? Clinician (SIG) Name Name atorronittasalvatore Yes 40mg QD Take [address] [address] [facility] (LIPITOR) 7-29 by mouth [facility] 40 MG 19:59: daily. Medical tablet 13 [facility] atorvastati Yes 40mg QD Take [address] [facility] (LIPITOR) 7-29 by mouth [facility] 40 MG 19:59: daily. Medical tablet 13 [facility] bacitracin Yes QD Apply [facility] 500 7-29 topically [facility] unit/gram 19:59: daily. Medica l ointment 13 Center trypsin-bal Yes Apply [facility] drake-castor 7-29 topically [facility] oil 19:59: 2 (two) Medical [id number] 13 times Center unit-mg-mg/ daily as gram Oint needed. bisacodyl Yes 10mg Place [address] [facility] [address] (FLEET) 10 7-29 mg [facility] mg/30 mL 19:59: rectally Medic al Enem enema 13 once. [facility] enoxaparin Yes 70mg Inject [address] (LOVENOX) 7-29 mg [facility] 100 mg/mL 19:59: subcutaneo Me dical Syrg 13 usly every Center 12 (twelve) hours. fluticasone Yes 1{puff} Inhale [address] (FLOVENT 7-29 puff by [facility] DISKUS) 50 19:59: mouth via Me dical mcg/actuati 13 inhaler Cente r on diskus daily as inhaler needed. HYDROcodone Yes 1{tbl} Take [address] -acetaminop 7-29 tablet by Naomi martinez (NORCO 19:59: mouth Medica l 5-325) 13 every 8 Center 5-325 mg (eight) per tablet hours as needed for Pain. levETIRAcet Yes 500mg Q.5D Take [address] am (KEPPRA) 7-29 mg by [facility] 500 MG 19:59: mouth 2 Medical tablet 13 (two) Center times daily. loratadine Yes 10mg QD Take [address] (CLARITIN) 7-29 by mouth [facility] 10 mg 19:59: daily. Medical tablet 13 [place] melatonin 3 Yes 3mg Take [address] mg Tab 7-29 by mouth [facility] tablet 19:59: every Medical 13 night as Center needed. mirtazapine Yes 15mg QD Take [address] (REMERON) 7-29 by mouth [facility] 15 MG 19:59: nightly. Medical tablet 13 [facility] ondansetron Yes 4mg Take [address] (ZOFRAN-ODT 7-29 by mouth Luke [facility] ) 4 MG 19:59: every 8 Medical disintegrat 13 (eight) Cente r ing tablet hours as needed for Nausea. pantoprazol Yes 40mg QD Take [address] e 7-29 by mouth [facility] (PROTONIX) 19:59: daily. Medic al 40 MG 13 [facility] tablet polyethylen Yes 17g QD Take [address] e glycol 7-29 by mouth [facility] (GLYCOLAX) 19:59: daily. Medic al 17 gram 13 [facility] packet senna Yes 2{tbl} QD Take [address] (SENOKOT) 7-29 tablets by Luke [facility] 8.6 mg 19:59: mouth Medical tablet 13 nightly. [facility] sertraline Yes 100mg QD Take [address] (ZOLOFT) 7-29 mg by [facility] 100 MG 19:59: mouth Medical tablet 13 daily. [facility] whey Yes 7g [id number] 7 g by PEG [facility] protein 7-29 [id number] Tube route [facility] isolate 21 19:59: 3D 3 (three) Me dical gram-100 13 times Center kcal/27 daily. gram Powd acetaminoph Yes 650mg Take [address] en 7-29 mg by [facility] (TYLENOL) 19:59: mouth Medical 325 MG 13 every 4 Center tablet (four) hours as needed for Pain. Lactobacill Yes 1{tbl} QD Take [address] us 7-29 tablet by [facility] acidoph-L.b 19:59: mouth Medic al ulgar 13 daily. [facility] (FLORANEX) 1 million cell Tab per tablet bacitracin Yes QD Apply [facility] 500 7-29 topically [facility] unit/gram 19:59: daily. Medica l ointment 13 [facility] trypsin-bal Yes Apply [facility] t drake-castor 7-29 topically [facility] oil 19:59: 2 (two) Medical [id number] 13 times Center unit-mg-mg/ daily as gram Oint needed. bisacodyl 2017-[address] (FLEET) 10 7-29 mg [facility] mg/30 mL 19:59: rectally Medic al Enem enema 13 once. [facility] enoxaparin 0 Yes 70mg Inject [address] (LOVENOX) 7-29 mg [facility] 100 mg/mL 19:59: subcutaneo Me dical Syrg 13 usly every Center 12 (twelve) hours. fluticasone 2017-0 Yes 1{puff} Inhale [address] (FLOVENT 7-29 puff by [facility] DISKUS) 50 19:59: mouth via Me dical mcg/actuati 13 inhaler Cente r on diskus daily as inhaler needed. HYDROcodone 2017-0 Yes 1{tbl} Take [address] -acetaminop 7-29 tablet by Naomi martinez (NORCO 19:59: mouth Medica l 5-325) 13 every 8 Center 5-325 mg (eight) per tablet hours as needed for Pain. levETIRAcet 2017-0 Yes 500mg Q.5D Take [address] am (KEPPRA) 7-29 mg by [facility] 500 MG 19:59: mouth 2 Medical tablet 13 (two) Center times daily. loratadine 0 Yes 10mg QD Take [address] (CLARITIN) 7-29 by mouth [facility] 10 mg 19:59: daily. Medical tablet 13 [facility] melatonin 3 0 Yes 3mg Take [address] mg Tab 7-29 by mouth [facility] tablet 19:59: every Medical 13 night as Center needed. mirtazapine 2017-0 Yes 15mg QD Take [address] (REMERON) 7-29 by mouth [facility] 15 MG 19:59: nightly. Medical tablet 13 [facility] ondansetron 0 Yes 4mg Take [address] (ZOFRAN-ODT 7-29 by mouth Luke [facility] ) 4 MG 19:59: every 8 Medical disintegrat 13 (eight) Cente r ing tablet hours as needed for Nausea. pantoprazol 2017-0 Yes 40mg QD Take [address] e 7-29 by mouth [facility] (PROTONIX) 19:59: daily. Medic al 40 MG 13 Center tablet polyethylen Yes 17g QD Take [address] e glycol 7-29 by mouth [facility] (GLYCOLAX) 19:59: daily. Medic al 17 gram 13 Center packet senna 2018 Yes 2{tbl} QD Take [address] (SENOKOT) 7-29 tablets by Luke [facility] 8.6 mg 19:59: mouth Medical tablet 13 nightly. Center sertraline Yes 100mg QD Take [address] (ZOLOFT) 7-29 mg by [facility] 100 MG 19:59: mouth Medical tablet 13 daily. [facility] whey Yes 7g Q.[id number] 7 g by PEG [facility] protein 7-29 [id number] Tube route [facility] isolate 21 19:59: 3D 3 (three) Me dical gram-100 13 times Center kcal/27 daily. gram Powd acetaminoph Yes 650mg Take [address] en 7-29 mg by [facility] (TYLENOL) 19:59: mouth Medical 325 MG 13 every 4 Center tablet (four) hours as needed for Pain. Lactobacill Yes 1{tbl} QD Take [address] us 7-29 tablet by [facility] acidoph-L.b 19:59: mouth Medic al ulgar 13 daily. [facility] (FLORANEX) 1 million cell Tab per tablet DULoxetine 2017 Yes 60mg QD Take 60 mg H [facility] (CYMBALTA) 1-20 by mouth Healt h 60 mg 15:01: daily. delayed 26 release capsule DULoxetine 20170 Yes 60mg QD Take 60 mg H [facility] (CYMBALTA) 1-20 by mouth Healt h 60 mg 15:01: daily. delayed 26 release capsule traZODone 2017-0 Yes 100mg Take 100 [facility] (DESYREL) 1-20 mg by Health 100 mg 15:01: mouth at tablet 26 bedtime nightly. diazepam 2017-0 Yes 10mg Take 10 mg [facility] (VALIUM) 10 1-20 by mouth Heal th mg tablet 15:01: every 6 26 hours as needed for Anxiety. gabapentin 2017-0 Yes 300mg Take 300 [facility] r[facility] (NEURONTIN) 1-20 mg by Health 300 mg 15:01: mouth 3 capsule 26 times daily. traZODone 2017 Yes 100mg Take 100 [facility] (DESYREL) 1-20 mg by Health 100 mg 15:01: mouth at tablet 26 bedtime nightly. diphenhydrA 2017 Yes 25mg Take 25 mg [facility] MINE 1-20 by mouth Health (BENADRYL) 15:01: nightly at 25 mg 26 bedtime as capsule needed for Sleep. diazepam 2017 Yes 10mg Take 10 mg [facility] (VALIUM) 10 1-20 by mouth Heal th mg tablet 15:01: every 6 26 hours as needed for Anxiety. gabapentin 2017 Yes 300mg Take 300 [facility] (NEURONTIN) 1-20 mg by Health 300 mg 15:01: mouth 3 capsule 26 times daily. diphenhydrA 2017 Yes 25mg Take 25 mg [facility] MINE 1-20 by mouth Health (BENADRYL) 15:01: nightly at 25 mg 26 bedtime as capsule needed for Sleep. tamsulosin 2015-02 Yes Medication TAKE 1 [facility] (FLOMAX) 2-15 refill CAPSULE BY a lth 0.4 mg 00:00: MOUTH AT extended 00 BEDTIME release NIGHTLY. capsule tamsulosin 2015-02 Yes Medication TAKE 1 [facility] (FLOMAX) 2-15 refill CAPSULE BY Hea lth 0.4 mg 00:00: MOUTH AT extended 00 BEDTIME release NIGHTLY. capsule fentaNYL 2015-02 Yes 1{patch Apply 1 [facility] (DURAGESIC) 2- } Patch to Heal th 100 mcg/hr 13:10: skin as 72 hr 40 directed transdermal every 72 patch hours. fentaNYL 2016 Yes 1{patch Apply 1 [facility] (DURAGESIC) 2-01 } Patch to Heal th 100 mcg/hr 13:10: skin as 72 hr 40 directed transdermal every 72 patch hours. cetirizine Yes Acute 10mg QD Take 1 [facility] is (ZYRTEC) 10 6-27 pharyngitis tablet by Health mg tablet 00:00: , mouth 00 unspecified daily. etiology cetirizine 2016- Yes Acute 10mg QD Take 1 [facility] (ZYRTEC) 10 6-27 pharyngitis tablet by Health mg tablet 00:00: , mouth 00 unspecified daily. etiology Mineral 2015- Yes Xerosis Apply to [facility] Oil-Isoprop 5-17 cutis affected Hea lth yl Myristat 00:00: area Mix Lotn 00 80 mg of triamcinol one ( 2 ml of the 40mg/ml concentrat ion) into an 8 ounce bottle of skin moisturize r Apply to dry skin tid. Mineral Yes Xerosis Apply to [facility] Oil-Isoprop 5-17 cutis affected Fanny lth yl Myristat 00:00: area Mix Lotn 00 80 mg of triamcinol one ( 2 ml of the 40mg/ml concentrat ion) into an 8 ounce bottle of skin moisturize r Apply to dry skin tid. calcium 500 Yes Hypocalcemi Q.5D Take by [facility] mg Tab 4-03 a mouth 2 Health 00:00: times 00 daily. calcium 500 Yes Hypocalcemi Q.5D Take by [facility] mg Tab 4-03 a mouth 2 Health 00:00: times 00 daily. Immunizations Ordered Immunization Filled Immunization Date Status Commen ts Source Name Name Twinrix-HEP A&b 2015-05-31 Completed [facility] alth 00:00:00 Twinrix-HEP A&b 2015-05-31 Completed [facility] alth 00:00:00 Twinrix-HEP A&b 2014-08-27 Completed [facility] alth 00:00:00 Twinrix-HEP A&b 2014-08-27 Completed [facility] alth 00:00:00 PPV 23 Pneumococcal 2014-07-23 Completed [facility] Polysaccaride 00:00:00 Twinrix-HEP A&b 2014-07-23 Completed [facility] alth 00:00:00 PPV 23 Pneumococcal 2014-07-23 Completed [facility] Polysaccaride 00:00:00 Twinrix-HEP A&b 2014-07-23 Completed [facility] alth 00:00:00 Tdap Tetanus, 2014-04-13 Completed [facility] th diphtheria, acellular 00:00:00 pertussis Vaccine Tdap Tetanus, 2014-04-13 Completed [facility] diphtheria, acellular 00:00:00 pertussis Vaccine Procedures This patient has no known procedures. Plan of Care Planned Activity Planned Date Details Comments Source Future Scheduled Test 2021-11-08 00:00:00 IMM Influenza [facility] Seasonal (>/= 19 yrs) [code = IMM Influenza Seasonal (>/= 19 yrs)] Future Scheduled Test 2021-11-08 00:00:00 IMM Influenza [facility] Seasonal (>/= 19 yrs) [code = IMM Influenza Seasonal (>/= 19 yrs)] Future Scheduled Test 2021-01-08 00:00:00 Screening for [facility] malignant neoplasm of colon (procedure) [code = 573714417] Future Scheduled Test 2021-01-08 00:00:00 Screening for [facility] malignant neoplasm of colon (procedure) [code = 728855557] Future Scheduled Test 2021-01-08 00:00:00 Screening for [facility] malignant neoplasm of colon (procedure) [code = 090268556] Future Scheduled Test 2021-01-08 00:00:00 Screening for [facility] malignant neoplasm of colon (procedure) [code = 597080950] Future Scheduled Test 2012-02-19 00:00:00 Screening for [facility] malignant neoplasm of colon (procedure) [code = 854418046] Future Scheduled Test 2012-02-19 00:00:00 Screening for [facility] malignant neoplasm of colon (procedure) [code = 252469421] Future Scheduled Test 2012-02-19 00:00:00 Screening for [facility] malignant neoplasm of colon (procedure) [code = 667887832] Future Scheduled Test 2012-02-19 00:00:00 Screening for [facility] malignant neoplasm of colon (procedure) [code = 949066715] Future Scheduled Test 2012-02-19 00:00:00 Screening for [facility] malignant neoplasm of colon (procedure) [code = 529667028] Future Scheduled Test 2012-02-19 00:00:00 Screening for [facility] malignant neoplasm of colon (procedure) [code = 951240006] Future Scheduled Test 1960 00:00:00 COVID-19 Vaccine (#1) [facility] [code = COVID-19 Vaccine (#1)] Future Scheduled Test 1960 00:00:00 COVID-19 Vaccine (#1) [facility] [code = COVID-19 Vaccine (#1)] Encounters Start End Encounter Admission Attending Care Care Encounter Source Date/Time Date/Time Type Type Clinicians Facility Department ID 2020-06-26 Outpatient [facility] [id number] [place] 13:50:36 [facility] 2020-06-26 Outpatient MAGAT, [facility] [id number] PA 07:30:01 [facility] 2021-08-19 2021-08-19 Outpatient AMBREEN_[facility] [address] 02:21:00 02:21:00 STEPHANYRicardo 0712 da [facility] Outre h Program 2020-12-13 2020-12-13 EXT [facility] Magat, EXT MSRDP [id number] PA 00:00:00 00:00:00 Rebeca M LOCATION [id number] Health [id number] 0 2020-06-25 2020-06-25 EXT [facility] OP Magat, EXT MSRDP [id number] PA 00:00:00 00:00:00 Rebeca M LOCATION [id number] Health [id number] 2020-06-25 2020-06-25 EXT [facility] OP Magat, EXT MSRDP [id number] PA 00:00:00 00:00:00 Rebeca M LOCATION [id number] Health [id number] 0 2020-06-19 2020-06-19 EXT [facility] OP Magat, EXT MSRDP [id number] PA 00:00:00 00:00:00 Rebeca M LOCATION [id number] Health [id number] 0 2020-06-19 2020-06-19 EXT [facility] OP Magat, EXT MSRDP [id number] PA 00:00:00 00:00:00 Rebeca M LOCATION [id number] Health [id number] 0 2020-03-19 2020-03-19 EXT [facility] OP Magat, EXT MSRDP [id number] PA 00:00:00 00:00:00 Rebeca M LOCATION [id number] Health [id number] 0 2020-03-19 2020-03-19 EXT [facility] OP Magat, EXT MSRDP [id number] PA 00:00:00 00:00:00 Rebeca LOCATION [id number] Health [id number] 2018-06-23 2018-06-22 Inpatient E [facility] [id number] BL 04:46:00 20:30:00 2018-06-05 2018-06-05 Emergency E [facility] [address] [facility] 13:21:00 13:21:00 Results Test Description Test Time Test Comments Results Result Comments Source POCT-GLUCOSE METER 2017-09-05 05:32:00 Test Item Value Reference Range Interpretation Comme [facility] POC-GLUCOSE METER (BEAKER) (test 100 mg/dL 70-110 TESTED AT [facility] [address] [facility] code = 1538) [facility] [address] [id number] 04:38:00 Test Item Value Reference Range Interpretation Comments PHOSPHORUS (BEAKER) (test code = 4.1 mg/dL 2.5-4.5 604) [id number] 04:38:00 Test Item Value Reference Range Interpretation Comments MAGNESIUM (BEAKER) (test code = 1.9 mg/dL 1.5-3.0 627) BASIC METABOLIC [id number] 04:38:00 Test Item Value Reference Range Interpretation [...] PATIEN TS. CBC W/PLT COUNT & AUTO [id number] 04:13:00 Test Item Value Reference Range Interpretation [...] L 0.00-0.20 (test code = 417) POCT-GLUCOSE [id number] 20:18:00 Test Item Value Reference Range Interpretation Comments POC-GLUCOSE METER 88 mg/dL 70-110 TESTED AT [facility] [address] (BEAKER) (test code = [facility] 1538) [place] [address] POCT-GLUCOSE [id number] 18:01:00 Test Item Value Reference Range Interpretation Comments POC-GLUCOSE METER 104 mg/dL 70-110 TESTED AT [facility] [address] (BEAKER) (test code [facility] = 1538) [place] [address] POCT-GLUCOSE [id number] 13:13:00 Test Item Value Reference Range Interpretation Comments POC-GLUCOSE METER 74 mg/dL 70-110 TESTED AT [address] (BEAKER) (test code = [facility] 1538) [place] [address] URINALYSIS W/ REFLEX URINE [id number] 02:14:00 Test Item Value Reference Range Interpretation [...] 1584) SOURCE(BEAKER) (test code = 2795) TROPONIN [id number] 00:41:00 Test Item Value Reference Range Interpretation [...] acute neurological disease, and persistent tachyarrhythmia.BASIC METABOLIC [id number] 00:37:00 Test Item Value Reference Range Interpretation [...] m DATA TO CALCULA TE ESTIMATED GFR. [id number] 00:33:00 Test Item Value Reference Range Interpretation Comments MAGNESIUM (BEAKER) 2.3 mg/dL 1.5-3.0 Specimen slightly (test code = 627) hemolyzed [id number] 00:33:00 Test Item Value Reference Range Interpretation Comments PHOSPHORUS (BEAKER) 3.8 mg/dL 2.5-4.5 Specimen slightly (test code = 604) hemolyzed CBC W/PLT COUNT & AUTO [id number] 00:18:00 Test Item Value Reference Range Interpretation [...] = 417) RAD, CHEST, 1 VIEW, NON [id number] 00:09:00Reason for exam:->ALTERED MENTAL STATUSShould this be [...] expected location of the gastric body. Signed: Sumanth Sterling [facility] Verified Date/Time: 09/04/2017 00:09:13 Reading Location: [address] Transitional Reading Room CT, BRAIN, WITHOUT [id number] 00:01:00Reason for exam:- >ALTERED MENTAL STATUSWhat is [...] is recommended for further characterization. Signed: JR Devries [facility] Verified Date/Time: 09/04/2017 00:01:45 Reading Location: [address] Reading Room
[2022-02-02] MEDS ORDERED: IPRATROPIUM BROM 0.5MG/2.5ML ONE (02:07)
[2022-02-02] MEDS ORDERED: NA CHLORIDE 0.9% 100 ML IV ONE (02:07)
[2022-02-02] MEDS ORDERED: NA CHLORIDE 0.9% 500 ML ONE (02:07)
[2022-02-02] MEDS ORDERED: ALBUTEROL 2.5 MG/3 ML NEB SOL ONE (02:07)
[2022-02-02] MEDS ORDERED: CEFAZOLIN SODIUM 1 GM/VIAL ONE (02:07)
[2022-02-02 02:27] LABS: Albumin 2.8 g/dL (3.4-5.0); Bilirubin Total 0.7 mg/dL (0.2-1.0); Potassium 4.2 mmol/L (3.5-5.1); Protein, Total 6.7 g/dL (6.4-8.2)
[2022-02-02] MEDS ORDERED: VANCOMYCIN 1 GM/VIAL ONE (02:32)
[2022-02-02] MEDS ORDERED: NA CHLORIDE 0.9% 250 ML ONE (02:32)
[2022-02-02 02:48] LABS: Arterial Blood Carboxyhemoglob 1.4 % (0-1.5); Blood Gas Oxyhemoglobin 84.8 % (94-97); Blood O2 Saturation 86.9 % (92-98.5)
[2022-02-02 03:07] LABS: Absolute Lymphocytes (CBC) 1.1 K/uL (0.7-4.9); Hematocrit 41.4 % (39.6-49.0); Lymphocytes % 6.9 % (15.3-44.8); MCV 92.9 fL (80-100); MPV 9.4 fL (7.6-11.3); RBC Red Blood Cell Count 4.46 M/uL (4.33-5.43)
[2022-02-02 03:29] LABS: SARS-COV-2 RT PCR NEGATIVE (NEGATIVE)
--- NOTE | 2022-02-02 04:19 | EDPHYS ---
Physician Documentation [facility] Name: Elliot Hathaway Age: 61 yrs Sex: Male : 1960 Arrival Date: 02/02/2022 Time: 00:05 Bed 16 Private MD: ED Physician Trevor Riggs HPI: 02/02 03:33 This 61 yrs old Male presents to ER via EMS with complaints of Shortness of breath. rt 03:33 The patient has shortness of breath at rest. Onset: The symptoms/episode began/occurred rt at an unknown time. The patient's shortness of breath has no apparent modifying factors. Associated signs and symptoms: Pertinent positives: productive cough. Severity of symptoms: At their worst the symptoms were moderate. Unable to obtain HPI due to patient is on ventilator. History limited due to patient with a tracheostomy. Patient presents to the ED with worsening respiratory status, noted hypoxia at the correction. Son states that the tracheostomy appears to be somewhat dislodged. Denies other acute complaints at this time. Symptoms are moderate in severity, no other aggravating or alleviating factors.. Historical: - Allergies: 00:23 No Known Allergies; jb4 - PMHx: 04:41 chronic respiratory failure with hypoxia; heart failure; hyperlipidemia; MRSA; jb4 seizures; Anxiety; gastrostomy; dysphagia; Hemiplegia; - Immunization history:: Adult Immunizations unknown. - Social history:: Smoking status: Patient denies any tobacco usage or history of. - Family history:: not pertinent. ROS: 03:33 Unable to obtain ROS due to patient is on ventilator. rt Exam: 03:33 Chest/axilla: Normal chest wall appearance and motion. Nontender with no deformity. rt No lesions are appreciated. Abdomen/GI: Soft, non-tender, with normal bowel sounds. No distension or tympany. No guarding or rebound. No evidence of tenderness throughout. Skin: Warm, dry with normal turgor. Normal color with no rashes, no lesions, and no evidence of cellulitis. MS/ Extremity: Pulses equal, no cyanosis. Neurovascular intact. Full, normal range of motion. Psych: Awake, alert, with orientation to person, place and time. Behavior, mood, and affect are within normal limits. 03:33 Head/face: Left-sided craniotomy present. 03:33 Eyes: post surgical changes present. 03:33 ENT: Tracheostomy in place, retracted about 1 cm.. 03:33 Neck: Trachea: no acute changes. 03:33 Cardiovascular: Tachycardic, regular rhythm, heart sounds normal. 03:33 ECG was reviewed by the Attending Physician. 03:33 Respiratory: Worse breath sounds with wheezes diffusely, worse on the left compared to the right. Mild to moderate respiratory distress. Vital Signs: 02/01 20:00 BP 112 / 60; Pulse 89; Resp 17; Pulse Ox 100% ; vc1 21:00 BP 122 / 66; Pulse 90; Resp 18; Pulse Ox 100% ; vc1 22:00 BP 141 / 65; Pulse 89; Resp 18; Pulse Ox 96% on R/A; vc1 02/02 00:00 BP 92 / 73; Pulse 114; Resp 20; Pulse Ox 99% ; vc1 00:19 BP 92 / 73; Pulse 117; Resp 38 S; Temp 100.8(A); Pulse Ox 88% on Nebulizer Mask; jb4 01:00 BP 94 / 71; Pulse 110; Resp 31; Pulse Ox 99% ; vc1 02:00 BP 86 / 69; Pulse 101; Resp 31; Pulse Ox 96% ; vc1 02:15 Weight 62.14 kg; pf1 03:55 BP 89 / 69; Pulse 99; Resp 25; Temp 98.0(A); Pulse Ox 100% on Nebulizer Mask; jb4 04:39 BP 94 / 69; Pulse 95; Resp 33; Pulse Ox 95% on Nebulizer Mask; jb4 Procedures: 05:24 G-tube placement: a 16 [place] catheter was placed, by the ED physician, Trevor chavarria MD. MDM: 00:13 Patient medically screened. rt 05:10 Differential diagnosis: Pneumonia, pneumothorax, tracheostomy dislodgment, sepsis. Data rt reviewed: vital signs, nurses notes, lab test result(s), EKG, radiologic studies. ED course: Presents to the ED with respiratory distress, he does meet SIRS criteria. The patient is found have a likely pneumonia, symptoms are improving with suctioning, repositioning of the tracheostomy. Broad-spectrum antibiotics were given, cultures were ordered. Patient will be transferred to [facility] for continuity of care.. 05:24 ED course: Patient's PEG tube got displaced when they were moving the patient over to rt the ambulance stretcher, a fresh PEG tube was replaced that difficulty, stomach contents were aspirated.. 02/02 00:21 Order name: Blood Culture Adult (2) rt 02/02 00:21 Order name: CBC with Diff; Complete Time: 03:32 rt 02/02 00:21 Order name: CMP; Complete Time: 02:43 rt 02/02 00:21 Order name: Lactate w/ 2H reflex if indic.; Complete Time: 02:43 rt 02/02 00:21 Order name: ABG; Complete Time: 03:32 rt 02/02 00:21 Order name: Troponin High Sensitivity; Complete Time: 02:43 rt 02/02 00:21 Order name: EKG; Complete Time: 00:22 rt 02/02 00:21 Order name: BNP; Complete Time: 02:43 rt 02/02 00:57 Order name: Chest Single View XRAY la1 02/02 01:03 Order name: COVID-19/FLU A+B; Complete Time: 03:32 la1 02/02 00:21 Order name: Cardiac monitoring; Complete Time: 01:58 rt 02/02 00:21 Order name: EKG - Nurse/Tech; Complete Time: 02:34 rt 02/02 00:21 Order name: IV Saline Lock - Large Bore; Complete Time: 01:58 rt 02/02 00:21 Order name: Labs collected and sent; Complete Time: 01:58 rt 02/02 00:21 Order name: O2 Per Protocol; Complete Time: 01:58 rt 02/02 00:21 Order name: O2 Sat Monitoring; Complete Time: 01:58 rt 02/02 00:21 Order name: Vital Signs; Complete Time: 01:58 rt 02/02 00:21 Order name: EKG - Nurse/Tech; Complete Time: 02:34 rt EC:33 Rate is 101 beats/min. Rhythm is regular, Sinus tachycardia with No ectopy. Left axis rt deviation noted. PA interval is normal. QRS interval is normal. QT interval is normal. No Q waves. T waves are Normal. No ST changes noted. Administered Medications: 02:34 Drug: ceFAZolin 2 grams Route: IVPB; Infused Over: 30 mins; Site: left wrist; jb4 03:04 Follow up: Response: No adverse reaction; IV Status: Completed infusion; IV Intake: jb4 100ml 02:34 Drug: NS 0.9% 500 ml Route: IV; Rate: bolus; Site: left wrist; jb4 03:04 Follow up: Response: No adverse reaction; IV Status: Completed infusion; IV Intake: jb4 500ml 02:34 Drug: DuoNeb (albuterol 2.5 mg, ipratropium 0.5 mg) (3:1) (2.5 mg - 0.5 mg) 3 ml Route: jb4 Nebulizer; 03:04 Follow up: Response: No adverse reaction jb4 03:12 Drug: vancoMYCIN 15 mg/kg Route: IVPB; Site: right wrist; jb4 Disposition: 05:17 Critical Care:. rt Disposition Summary: 02/02/22 04:18 Transfer Ordered Transfer Location: [facility] rt Reason: Higher level of care rt Condition: Fair rt Problem: new rt Symptoms: have improved rt Accepting Physician: Dr. Gutierrez(02/02/22 05:33) jb4 Diagnosis - Pneumonia, unspecified organism rt - Acute respiratory failure with hypoxia rt - Severe sepsis without septic shock rt Forms: - Medication Reconciliation Form rt - SBAR form rt Critical care time excluding procedures: 05:17 Critical care time: Bedside Care: 30 minutes, Consultation: 5 minutes. Total time: 35 rt minutes Signatures: Dispatcher [employer] Andi Saleh RN RN jb4 Trevor Riggs MD MD rt Corrections: (The following items were deleted from the chart) 05:12 04:18 Dr. Gutierrez rt jb4 05:33 05:12 Dr. Gutierrez jb4 jb4
--- NOTE | 2022-02-02 04:19 | ER ---
Nurse's Notes [facility] Name: Elliot Hathaway Age: 61 yrs Sex: Male : 1960 Arrival Date: 02/02/2022 Time: 00:05 Bed 16 Private MD: Diagnosis: Pneumonia, unspecified organism;Acute respiratory failure with hypoxia;Severe sepsis without septic shock Presentation: 02/02 00:19 Chief complaint: EMS states: [facility] staff reports pt has had low O2 all day, pt was jb4 satting 88% on RA. Pt is reportedly less responsive then normal. 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 Coronavirus screen: Client presents with at least one sign or symptom that may indicate coronavirus-19. Ebola Screen: No symptoms or risks identified at this time. Initial Sepsis Screen: Does the patient meet any 2 criteria? RR > 20 per min. HR > 90 bpm. Yes Does the patient have a suspected source of infection? Yes: Productive cough/pneumonia If YES to both, name of provider notified: Trevor Riggs MD Risk Assessment: Do you want to hurt yourself or someone else? Patient reports no desire to harm self or others. Onset of symptoms was February 02, 2022. Transition of care: patient was received from another setting of care (long-term care facility), [facility]. 00:19 Method Of Arrival: EMS: [facility] jb4 00:19 Acuity: KRISTINE 2 jb4 Historical: - Allergies: 00:23 No Known Allergies; jb4 - PMHx: 04:41 chronic respiratory failure with hypoxia; heart failure; hyperlipidemia; MRSA; jb4 seizures; Anxiety; gastrostomy; dysphagia; Hemiplegia; - Immunization history:: Adult Immunizations unknown. - Social history:: Smoking status: Patient denies any tobacco usage or history of. - Family history:: not pertinent. Screenin:30 [facility] ED Fall Risk Assessment (Adult) History of falling in the last 3 months, jb4 including since admission No falls in past 3 months (0 pts) Confusion or Disorientation No (0 pts) Intoxicated or Sedated No (0 pts) Impaired Gait No (0 pts) Mobility Assist Device Used No (0 pt) Altered Elimination No (0 pt) Score/Fall Risk Level 0 - 2 = Low Risk Maintained a safe environment. 00:30 Abuse screen: Denies threats or abuse. Nutritional screening: No deficits noted. jb4 Tuberculosis screening: No symptoms or risk factors identified. Assessment: 00:30 General: Appears distressed, uncomfortable, ill, slender, Behavior is unresponsive. jb4 Pain: Unable to use pain scale. FLACC scale score is 0 out of 10. Neuro: Level of Consciousness is awake, Oriented to unable to assess. Cardiovascular: Patient's skin is warm and dry. Respiratory: Airway is patent Respiratory effort is even, labored, Respiratory pattern is symmetrical, tachypnea. GI: No signs and/or symptoms were reported involving the gastrointestinal system. : No signs and/or symptoms were reported regarding the genitourinary system. EENT: No signs and/or symptoms were reported regarding the EENT system. Derm: Skin is intact, Skin is pink, warm \T\ dry. Musculoskeletal: Range of motion: limited in Right side. 01:30 Reassessment: Patient appears in no apparent distress at this time. No changes from jb4 previously documented assessment. Patient and/or family updated on plan of care and expected duration. Pain level reassessed. 02:30 Reassessment: Patient appears in no apparent distress at this time. No changes from jb4 previously documented assessment. Patient and/or family updated on plan of care and expected duration. Pain level reassessed. 04:00 Reassessment: Patient appears in no apparent distress at this time. No changes from jb4 previously documented assessment. Patient and/or family updated on plan of care and expected duration. Pain level reassessed. 05:00 Reassessment: Patient appears in no apparent distress at this time. No changes from jb4 previously documented assessment. Patient and/or family updated on plan of care and expected duration. Pain level reassessed. attempted to call report at receiving facility. 05:32 Reassessment: Pt's peg tube dislodged after being transferred to EMS [facility], ER jb4 provider replaced tube, pt suctioned prior to leaving ED. 05:56 Reassessment: Report given to receiving facility. [facility] Vital Signs: 02/01 20:00 BP 112 / 60; Pulse 89; Resp 17; Pulse Ox 100% ; vc1 21:00 BP 122 / 66; Pulse 90; Resp 18; Pulse Ox 100% ; vc1 22:00 BP 141 / 65; Pulse 89; Resp 18; Pulse Ox 96% on R/A; vc1 02/02 00:00 BP 92 / 73; Pulse 114; Resp 20; Pulse Ox 99% ; vc1 00:19 BP 92 / 73; Pulse 117; Resp 38 S; Temp 100.8(A); Pulse Ox 88% on Nebulizer Mask; jb4 01:00 BP 94 / 71; Pulse 110; Resp 31; Pulse Ox 99% ; vc1 02:00 BP 86 / 69; Pulse 101; Resp 31; Pulse Ox 96% ; vc1 02:15 Weight 62.14 kg; pf1 03:55 BP 89 / 69; Pulse 99; Resp 25; Temp 98.0(A); Pulse Ox 100% on Nebulizer Mask; jb4 04:39 BP 94 / 69; Pulse 95; Resp 33; Pulse Ox 95% on Nebulizer Mask; jb4 ED Course: 00:05 Patient arrived in ED. jb4 00:13 Trevor Riggs MD is Attending Physician. rt 00:18 Andi Redmond, RN is Primary Nurse. jb4 00:23 Triage completed. jb4 00:23 Arm band placed on right wrist. jb4 00:30 Patient has correct armband on for positive identification. Placed in gown. Bed in low jb4 position. Call light in reach. Side rails up X 1. Client placed on continuous cardiac and pulse oximetry monitoring. NIBP monitoring applied. stage technician on. 01:42 Chest Single View XRAY In Process Unspecified. EDMS 01:46 Missed attempt(s): 20 gauge in left upper arm. Bleeding controlled, band aid applied, bb catheter tip intact. 01:50 Missed attempt(s): 20 gauge in left antecubital area. Bleeding controlled, band aid bb applied, catheter tip intact. 01:58 COVID-19/FLU A+B Sent. jb4 01:58 Lactate w/ 2H reflex if indic. Sent. jb4 01:58 CMP Sent. jb4 01:58 CBC with Diff Sent. jb4 01:58 Blood Culture Adult (2) Sent. jb4 03:15 Initiated transfer to [facility]. wm 04:15 Pt accepted for transfer to [facility] by Matt Alonzo \T\ 0359 per Vy Pascual. wm 05:12 No provider procedures requiring assistance completed. Patient transferred, IV remains jb4 in place. 05:32 Primary Nurse role handed off by Andi Redmond, EMA jb4 Administered Medications: 02:34 Drug: ceFAZolin 2 grams Route: IVPB; Infused Over: 30 mins; Site: left wrist; jb4 03:04 Follow up: Response: No adverse reaction; IV Status: Completed infusion; IV Intake: jb4 100ml 02:34 Drug: NS 0.9% 500 ml Route: IV; Rate: bolus; Site: left wrist; jb4 03:04 Follow up: Response: No adverse reaction; IV Status: Completed infusion; IV Intake: jb4 500ml 02:34 Drug: DuoNeb (albuterol 2.5 mg, ipratropium 0.5 mg) (3:1) (2.5 mg - 0.5 mg) 3 ml Route: jb4 Nebulizer; 03:04 Follow up: Response: No adverse reaction jb4 03:12 Drug: vancoMYCIN 15 mg/kg Route: IVPB; Site: right wrist; jb4 Medication: 05:00 VIS not applicable for this client. jb4 Intake: 03:04 IV: 100ml; Total: 100ml. jb4 03:04 IV: 500ml; Total: 600ml. jb4 Outcome: 04:18 ER care complete, transfer ordered by . rt 05:12 Transferred by ground EMS to [facility], to other acute care jb4 facility: [facility]. Transfer form completed. X-rays sent w/ patient. 05:12 Condition: stable 05:12 Discharge instructions given to family, Instructed on the need for transfer, Demonstrated understanding of instructions. 05:12 Patient left the ED. jb4 05:33 Patient left the ED. jb4 Signatures: Dispatcher [employer] EDMS Luna Monroy RN RN bb Andi Redmond, RN RN jb4 Maribel Farmer Lynda Guevara RN RN vc1 Trevor Riggs MD MD rt Penny varghese RN RN pf1 Corrections: (The following items were deleted from the chart) 02:15 02:12 64.41 kg; jb4 pf1 04:08 04:00 Reassessment: Patient appears in no apparent distress at this time. No changes jb4 from previously documented assessment. Patient and/or family updated on plan of care and expected duration. Pain level reassessed. jb4 05:02 02:30 Reassessment: Patient appears in no apparent distress at this time. No changes jb4 from previously documented assessment. Patient and/or family updated on plan of care and expected duration. Pain level reassessed. jb4 05:02 04:00 Reassessment: Patient appears in no apparent distress at this time. No changes jb4 from previously documented assessment. Patient and/or family updated on plan of care and expected duration. Pain level reassessed. Pt changed, and cleaned. jb4 05:47 05:00 Reassessment: Patient appears in no apparent distress at this time. No changes jb4 from previously documented assessment. Patient and/or family updated on plan of care and expected duration. Pain level reassessed. jb4
[2022-02-02 05:22] VITALS: TEMP 98
[2022-02-02 05:23] VITALS: BP 94/69; O2SAT 95
--- NOTE | 2022-02-02 14:42 | RAD REPORT ---
EXAM DESCRIPTION: X-ray single view chest. CLINICAL HISTORY: 61 years Male, COUGH COMPARISON: None. TECHNIQUE: Single portable x-ray view of the chest performed on 02/02/2022 at 1:36 AM FINDINGS: The lungs are well-expanded and are grossly clear. No focal airspace consolidation is iden tified. There is no evidence of a pneumothorax. The cardiac silhouette is normal in size and configuration. The mediastinal contours are normal. No acute osseous abnormality is identified. No acute soft tissue abnormalities are seen. Lines and tubes: A tracheostomy cannula is noted in grossly satisfactory position. There are multip le overlying nuclear monitoring technician leads. Free air: None IMPRESSION: 1. No definite acute intrathoracic disease. 2. Tracheostomy cannula in grossly satisfactory position. Electronically signed by: Twila Tillman DO 02/02/2022 1:53 AM TELESALES SUPERVISOR Due to temporary technical issues with the PACS/Fluency reporting system, reports are being signed by the in house radiologists without review as a courtesy to insure prompt reporting. The interpreting radiologist is fully responsible for the content of the report.
--- NOTE | 2022-02-02 16:03 | EKG ---
Test Date: 2022-02-02 Test Time: 02:10:30 Sales Account Representative: NIDA MEASUREMENT RESULTS: Intervals: Rate: 101 WY: 126 QRSD: 70 QT: 322 QTc: 417 [place]: P: 62 WY: 126 QRS: -33 T: 47 INTERPRETIVE STATEMENTS: Sinus tachycardia Left axis deviation Abnormal ECG Compared to ECG 08/15/2009 23:00:21 Left-axis deviation now present Sinus rhythm no longer present Electronically Signed On 02-02-22 16:03:01 FREIGHT ADJUSTER by Darryl Li
== END 2022-02-02 05:33 | disposition short-term general hospital (02) ==
LOC: ER 23:58
DX: J96.01 Acute respiratory failure with hypoxia (principal); R65.20 Severe sepsis without septic shock; J18.9 Pneumonia, unspecified organism; Z93.0 Tracheostomy status; Z20.822 Contact with and (suspected) exposure to COVID-19
CPT/HCPCS: 93005; 87040 ×2; 85025; 36415; 83605; 84484; 80053; 83880; 0240U; 71045; 82805; J7613; J7644; J3370; J7050; J7040; J0690; 94640; 96365; 96375; 99285

== ENCOUNTER 2022-08-06 09:57 | Inpatient (IN) | payer OTHER ==
--- OUTSIDE RECORDS SUMMARY | 2022-08-06 10:01 | XMS REPORT | Continuity of Care Document ---
:1960 Author Organization [facility] t Address [address] [place] [address] Care Team Providers Name Role Phone No MD, Pcp Primary Care Physician Unavailable REBECA JUAREZ Attending Clinician Unavailable CASSANDRA_KEYON Attending Clinician Unavailable ROSALIE MAGAÑA Attending Clinician Unavailable AMBREEN_WESLEYA Admitting Clinician Unavailable FARNAZ DELGADO Admitting Clinician Unavailable Payers Payer Name Policy Type Policy Number Effective Date Expiration Date S [facility] [employer] [id number] 2019 00:00:00 Problems Condition Condition Condition Status Onset Resolution Last Treating Co mments Source Name Details Category Date Date Treatment Clinician Date Altered Altered Disease Active GALDINO Rossi mental mental 09-04 [facility] 00:00: Medical 00 Center S/P S/P Disease Active [facility] cr[facility]otomy 09[facility]04 [facility] 00:00: Medical 00 Center Allergies, Adverse Reactions, Alerts This patient has no known allergies or adverse reactions. Social History Social Habit Start Date Stop Date Quantity Comments Source Tobacco use and 2017-09-04 2017-09-04 Smokeless [facility] exposure [facility]00 non-user [facility] Alcohol intake 2017-09-04 2017-09-04 Current GALDINO Patk es 00:00:00 00:00:00 non-drinker of Medical Ce nter alcohol (finding) Sex Assigned At [address] [facility] 00:[facility]00 [facility]00 [facility] Center Smoking Status Start Date Stop Date Source Tobacco smoking consumption unknown [facility] Never smoked tobacco [facility] Medications Ordered Filled Start Stop Current Ordering Indication Dosage Frequency Signature Comments Components Source Medication Medication Date Date Medication? Clinician (SIG) Name Name karina Yes 40mg QD Take [address] [address] [facility] (LIPITOR) 7-29 by mouth Luke s 40 MG 19:59: daily. Medical tablet 13 [place] bacitracin Yes QD Apply [facility] 7-29 [facility] unit/gram 19:59: daily. Medica l ointment 13 Center trypsin-bal Yes Apply [facility] t drake-castor 7-29 topically [facility] oil 19:59: 2 (two) Medical [id number] 13 times Center unit-mg-mg/ daily as gram Oint needed. bisacodyl Yes 10mg Place [address] [facility] [address] (FLEET) 10 7-29 [facility] mg/30 mL 19:59: rectally Medic al Enem enema 13 once. [place] enoxaparin Yes 70mg Inject 70 [facility] I [...] I St -acetaminop 7-29 tablet by Naomi cipriano martinez (NORCO 19:59: mouth Medica l 5-325) [...] 10 mg 19:59: daily. Medical tablet 13 [place] melatonin 3 Yes 3mg Take [address] mg Tab 7-29 by mouth [facility] tablet 19:59: every Medical 13 night as Center needed. mirtazapine Yes 15mg QD Take [address] (REMERON) 7-29 by mouth [facility] 15 MG 19:59: nightly. Medical tablet 13 [place] ondansetron Yes 4mg Take [address] (ZOFRAN-ODT 7-29 by mouth Luke [facility] ) 4 MG 19:59: every 8 Medical disintegrat 13 (eight) Cente r ing tablet hours as needed for Nausea. pantoprazol Yes 40mg QD Take [address] e 7-29 by mouth [facility] (PROTONIX) 19:59: daily. Medic al 40 MG 13 [place] tablet polyethylen 0 Yes 17g QD Take [address] e glycol 7-29 by mouth [facility] (GLYCOLAX) 19:59: daily. Medic al 17 gram 13 [place] packet senna Yes 2{tbl} QD Take [address] (SENOKOT) 7-29 tablets by Luke [facility] 8.6 mg 19:59: mouth Medical tablet 13 nightly. [place] sertraline Yes 100mg QD Take [address] (ZOLOFT) 7-29 mg by [facility] 100 MG 19:59: mouth Medical tablet 13 daily. [place] whey 0 Yes 7g [id number] 7 g by PEG [facility] protein 7-29 [id number] Tube route [facility] isolate 21 19:59: 3D 3 (three) Me dical gram-100 13 times [place] kcal/27 daily. gram Powd acetaminoph 0 Yes 650mg Take [address] en 7-29 mg by [facility]ukes (TYLENOL) 19:59: mouth Medical 325 MG 13 every 4 [place] tablet (four) hours as needed for Pain. Lactobacill 0 Yes 1{tbl} QD Take [address] us 7-29 tablet by [facility] acidoph-L.b 19:59: mouth Medic al ulgar 13 daily. [place] (FLORANEX) 1 million cell Tab per tablet bacitracin 2017-0 Yes QD Apply [facility] 7-29 topically [facility] unit/gram 19:59: daily. Medica l ointment 13 [place] trypsin-bal Yes Apply [facility] t drake-castor 7-29 topically [facility] oil 19:59: 2 (two) Medical [id number] 13 times Center unit-mg-mg/ daily as gram Oint needed. bisacodyl Yes 10mg Place [address] (FLEET) 10 7-29 mg [facility] mg/30 mL 19:59: rectally Medic al Enem enema 13 once. [place] enoxaparin Yes 70mg Inject 70 CH I [...] mouth Medica l 5-325) 13 every 8 [place] 5-325 mg (eight) per tablet hours as needed for Pain. levETIRAcet 0 Yes 500mg Q.5D Take [address] (KEPPRA) 7-29 mg by [facility] 500 MG 19:59: mouth 2 Medical tablet 13 (two) Center times daily. loratadine Yes 10mg QD Take [address] (CLARITIN) 7-29 by mouth [facility] 10 mg 19:59: daily. Medical tablet 13 [place] melatonin 3 0 Yes 3mg Take [address] mg Tab 7-29 by mouth [facility] tablet 19:59: every Medical 13 night as Center needed. mirtazapine 0 Yes 15mg QD Take [address] (REMERON) 7-29 by mouth [facility] 15 MG 19:59: nightly. Medical tablet 13 [place] ondansetron 0 Yes 4mg Take [address] (ZOFRAN-ODT 7-29 by mouth Luke s ) 4 MG 19:59: every 8 Medical disintegrat 13 (eight) Cente r ing tablet hours as needed for Nausea. pantoprazol Yes 40mg QD Take [address] e 7-29 by mouth [facility]ukes (PROTONIX) 19:59: daily. Medic al 40 MG 13 [place] tablet polyethylen Yes 17g QD Take [address] e glycol 7-29 by mouth [facility]ukes (GLYCOLAX) 19:59: daily. Medic al 17 gram 13 [place] packet senna Yes 2{tbl} QD Take [address] (SENOKOT) 7-29 tablets by Luke s 8.6 mg 19:59: mouth Medical tablet 13 nightly. [place] sertraline Yes 100mg QD Take [address] (ZOLOFT) 7-29 mg by [facility] 100 MG 19:59: mouth Medical tablet 13 daily. [place] whey Yes 7g [id number] 7 g by PEG [facility] protein 7-29 [id number] Tube route [facility] isolate 21 19:59: 3D 3 (three) Me dical gram-100 13 times [place] kcal/27 daily. gram Powd acetaminoph Yes 650mg Take [address] en 7-29 mg by [facility] (TYLENOL) 19:59: mouth Medical 325 MG 13 every 4 Center tablet (four) hours as needed for Pain. Lactobacill Yes 1{tbl} QD Take [address] [facility] 7-29 tablet by [facility] acidoph-L.b 19:59: mouth Medic al ulgar 13 daily. [place] (FLORANEX) 1 million cell Tab per tablet atorvastati Yes 40mg QD Take [address] n (LIPITOR) 7-29 by mouth Luke s 40 MG 19:59: daily. Medical tablet 13 [place] bacitracin Yes QD Apply [facility] 500 7-29 topically [facility] unit/gram 19:59: daily. Medica l ointment 13 [place] trypsin-bal Yes Apply [facility] S t drake-castor 7-29 topically [facility] s oil 19:59: 2 (two) Medical [id number] 13 times Center unit-mg-mg/ daily as gram Oint needed. bisacodyl Yes 10mg Place [address] (FLEET) 10 7-29 mg [facility] mg/30 mL 19:59: rectally Medic al Enem enema 13 once. Center enoxaparin 0 Yes 70mg Inject [address] (LOVENOX) 7-29 mg [facility]ukes 100 mg/mL 19:59: subcutaneo Me dical Syrg 13 usly every Center 12 (twelve) hours. fluticasone 2018-0 Yes 1{puff} Inhale [address] (FLOVENT 7-29 puff by [facility]ukes DISKUS) 50 19:59: mouth via Me dical mcg/actuati 13 inhaler Cente r on diskus daily as inhaler needed. HYDROcodone 2018-0 Yes 1{tbl} Take [address] -acetaminop 7-29 tablet by Naomi cipriano martinez (NORCO 19:59: mouth Medica l 5-325) 13 every 8 Center 5-325 mg (eight) per tablet hours as needed for Pain. levETIRAcet 0 Yes 500mg Q.5D Take [address] am (KEPPRA) 7-29 mg by [facility] 500 MG 19:59: mouth 2 Medical tablet 13 (two) Center times daily. loratadine 0 Yes 10mg QD Take [address] (CLARITIN) 7-29 by mouth [facility] 10 mg 19:59: daily. Medical tablet 13 [place] melatonin 3 0 Yes 3mg Take [address] mg Tab 7-29 by mouth [facility] tablet 19:59: every Medical 13 night as Center needed. mirtazapine 0 Yes 15mg QD Take [address] (REMERON) 7-29 by mouth [facility] 15 MG 19:59: nightly. Medical tablet 13 [place] ondansetron 0 Yes 4mg Take [address] (ZOFRAN-ODT 7-29 by mouth Luke s ) 4 MG 19:59: every 8 Medical disintegrat 13 (eight) Cente r ing tablet hours as needed for Nausea. pantoprazol 2017-0 Yes 40mg QD Take [address] e 7-29 by mouth [facility] (PROTONIX) 19:59: daily. Medic al 40 MG 13 [place] tablet polyethylen 0 Yes 17g QD Take [address] e glycol 7-29 by mouth [facility] (GLYCOLAX) 19:59: daily. Medic al 17 gram 13 [place] packet senna 2018-0 Yes 2{tbl} QD Take [address] (SENOKOT) 7-29 tablets by Luke s 8.6 mg 19:59: mouth Medical tablet 13 nightly. [place] sertraline Yes 100mg QD Take [address] (ZOLOFT) 7-29 mg by [facility] 100 MG 19:59: mouth Medical tablet 13 daily. [place] whey Yes 7g Q.[id number] 7 g by PEG [facility] protein 7-29 [id number] Tube route [facility] isolate 21 19:59: 3D 3 (three) Me dical gram-100 13 times [place] kcal/27 daily. gram Powd acetaminoph Yes 650mg Take [address] en 7-29 mg by [facility] (TYLENOL) 19:59: mouth Medical 325 MG 13 every 4 Center tablet (four) hours as needed for Pain. Lactobacill Yes 1{tbl} QD Take [address] us 7-29 tablet by [facility] acidoph-L.b 19:59: mouth Medic al ulgar 13 daily. [place] (FLORANEX) 1 million cell Tab per tablet atorvastati Yes 40mg QD Take [address] n (LIPITOR) 7-29 by mouth Luke s 40 MG 19:59: daily. Medical tablet 13 [place] bacitracin Yes QD Apply [facility] 500 7-29 topically [facility] unit/gram 19:59: daily. Medica l ointment 13 [place] trypsin-bal Yes Apply [facility] S t drake-castor 7-29 topically Luke s oil 19:59: 2 (two) Medical [id number] 13 times [place] unit-mg-mg/ daily as gram Oint needed. bisacodyl Yes 10mg Place [address] [facility] (FLEET) 10 7-29 mg [facility] mg/30 mL 19:59: rectally Medic al Enem enema 13 once. [place] enoxaparin Yes 70mg Inject [address] (LOVENOX) 7-29 mg [facility] 100 mg/mL 19:59: subcutaneo Me dical Syrg 13 usly every Center 12 (twelve) hours. fluticasone Yes 1{puff} Inhale [address] (FLOVENT 7-29 puff by [facility] DISKUS) 50 19:59: mouth via Me dical mcg/actuati 13 inhaler Cente r on diskus daily as inhaler needed. HYDROcodone 2018-0 Yes 1{tbl} Take [address] -acetaminop 7-29 tablet by Naomi cipriano martinez (NORCO 19:59: mouth Medica l 5-325) 13 every 8 Center 5-325 mg (eight) per tablet hours as needed for Pain. levETIRAcet 0 Yes 500mg Q.5D Take [address] am (KEPPRA) 7-29 mg by [facility] 500 MG 19:59: mouth 2 Medical tablet 13 (two) Center times daily. loratadine 0 Yes 10mg QD Take [address] (CLARITIN) 7-29 by mouth [facility] 10 mg 19:59: daily. Medical tablet 13 [place] melatonin 3 0 Yes 3mg Take [address] mg Tab 7-29 by mouth [facility] tablet 19:59: every Medical 13 night as Center needed. mirtazapine 0 Yes 15mg QD Take [address] (REMERON) 7-29 by mouth [facility] 15 MG 19:59: nightly. Medical tablet 13 [place] ondansetron 0 Yes 4mg Take [address] (ZOFRAN-ODT 7-29 by mouth Luke s ) 4 MG 19:59: every 8 Medical disintegrat 13 (eight) Cente r ing tablet hours as needed for Nausea. pantoprazol 0 Yes 40mg QD Take [address] e 7-29 by mouth [facility] (PROTONIX) 19:59: daily. Medic al 40 MG 13 Center tablet polyethylen 0 Yes 17g QD Take [address] e glycol 7-29 by mouth [facility]ukes (GLYCOLAX) 19:59: daily. Medic al 17 gram 13 [place] packet senna 2017-0 Yes 2{tbl} QD Take [address] (SENOKOT) 7-29 tablets by Luke s 8.6 mg 19:59: mouth Medical tablet 13 nightly. [place] sertraline 0 Yes 100mg QD Take [address] (ZOLOFT) 7-29 mg by [facility] 100 MG 19:59: mouth Medical tablet 13 daily. [place] whey 0 Yes 7g Q.20687016 7 g by PEG [facility] protein 7-29 [id number] Tube route [facility] isolate 21 19:59: 3D [...] 19:59: mouth Medic al ulgar 13 daily. Center (FLORANEX) 1 million cell Tab per tablet atorvastati Yes 40mg QD Take [address] n (LIPITOR) 09-05 by mouth Luke s 40 MG 19:59: daily. Medical tablet 13 Center Procedures This patient has no known procedures. Encounters Start End Encounter Admission Attending Care Care Encounter Source Date/Time Date/Time Type Type Clinicians Facility Department ID 2020-06-26 Outpatient [facility] [id number] [place] 13:50:36 [facility] 2020-06-26 Outpatient [facility] [id number] [place] 07:30:01 [facility] 2021-08-19 2021-08-19 Outpatient [facility] [address] [place] 02:21:00 02:21:00 SNEHA 0712 da [facility] Outre h Program 2020-12-13 2020-12-13 [facility]T [facility], [facility]T MSRDP [id number] [place] 00:00:00 00:00:00 [facility] LOCATION [id number] Health [id number] 2020-06-25 2020-06-25 EXT [facility], EXT MSRDP [id number] [place] 00:00:00 00:00:00 [facility] LOCATION [id number] Health [id number] 2020-06-25 2020-06-25 EXT [facility], EXT MSRDP [id number] [place] 00:00:00 00:00:00 Rebeca M LOCATION [id number] Health [id number] 2020-06-19 2020-06-19 EXT [facility], EXT MSRDP [id number] [place] 00:00:00 00:00:00 Rebeca M LOCATION [id number] Health [id number] 2020-06-19 2020-06-19 EXT [facility], EXT MSRDP [id number] [place] 00:00:00 00:00:00 Rebeca M LOCATION [id number] Health [id number] 2020-03-19 2020-03-19 EXT [facility] OP [facility], EXT MSRDP [id number] [place] 00:00:00 00:00:00 Rebeca M LOCATION [id number] Health [id number] 2020-03-19 2020-03-19 EXT [facility] OP [place], EXT MSRDP [id number] [place] 00:00:00 00:00:00 Rebeca M LOCATION [id number] Health [id number] 2018-06-23 2018-06-22 Inpatient E BL MED [id number] [facility]BL 04:46:00 20:30:00 2018-06-05 2018-06-05 Emergency E [facility] [address] [facility] 13:21:00 13:21:00 Results Test Description Test Time Test Comments Results Result Comments Source POCT-GLUCOSE METER 2017-09-05 05:32:00 Test Item Value Reference Range Interpretation Comme nts POC-GLUCOSE METER (BEAKER) (test 100 mg/dL 70-110 TESTED AT [facility] [address] [facility] code = 1538) [facility] [address] [id number] 04:38:00 Test Item Value Reference Range Interpretation Comments PHOSPHORUS (BEAKER) (test code = 4.1 mg/dL 2.5-4.5 604) [id number] 04:38:00 Test Item Value Reference Range Interpretation Comments MAGNESIUM (BEAKER) (test code = 1.9 mg/dL 1.5-3.0 627) BASIC METABOLIC [id number] 04:38:00 Test Item Value Reference Range Interpretation [...] PATIEN TS. CBC W/PLT COUNT & AUTO [id number] 04:13:00 Test Item Value Reference Range Interpretation [...] L 0.00-0.20 (test code = 417) POCT-GLUCOSE [id number] 20:18:00 Test Item Value Reference Range Interpretation Comments POC-GLUCOSE METER 88 mg/dL 70-110 TESTED AT [facility] [address] [address] (BEAKER) (test code = [facility] 1538) [place] [address] POCT-GLUCOSE [id number] 18:01:00 Test Item Value Reference Range Interpretation Comments POC-GLUCOSE METER 104 mg/dL 70-110 TESTED AT [facility] [address] [address] (BEAKER) (test code [facility] = 1538) [place] [address] POCT-GLUCOSE [id number] 13:13:00 Test Item Value Reference Range Interpretation Comments POC-GLUCOSE METER 74 mg/dL 70-110 TESTED AT [facility] [address] [address] (BEAKER) (test code = [facility] 1538) [place] [address] URINALYSIS W/ REFLEX URINE [id number] 02:14:00 Test Item Value Reference Range Interpretation [...] 1584) SOURCE(BEAKER) (test code = 2795) TROPONIN [id number] 00:41:00 Test Item Value Reference Range Interpretation [...] acute neurological disease, and persistent tachyarrhythmia.BASIC METABOLIC [id number] 00:37:00 Test Item Value Reference Range Interpretation [...] m DATA TO CALCULA TE ESTIMATED GFR. [id number] 00:33:00 Test Item Value Reference Range Interpretation Comments MAGNESIUM (BEAKER) 2.3 mg/dL 1.5-3.0 Specimen slightly (test code = 627) hemolyzed [id number] 00:33:00 Test Item Value Reference Range Interpretation Comments PHOSPHORUS (BEAKER) 3.8 mg/dL 2.5-4.5 Specimen slightly (test code = 604) hemolyzed CBC W/PLT COUNT & AUTO [id number] 00:18:00 Test Item Value Reference Range Interpretation [...] = 417) RAD, CHEST, 1 VIEW, NON [id number] 00:09:00Reason for exam:->ALTERED MENTAL STATUSShould this be [...] location of the gastric body. Signed: Sumanth Sterlingort Verified Date/Time: 09/04/2017 00:09:13 Reading Location: [facility] C013[facility] Reading Room CT, BRAIN, WITHOUT [id number] 00:01:00Reason for exam:- >ALTERED MENTAL STATUSWhat is [...] for further characterization. Signed: JR King Robert MDReport Verified Date/Time: 09/04/2017 00:01:45 Reading Location: [address] Reading Room
[2022-08-06] MEDS ORDERED: IPRATROPIUM BROM 0.5MG/2.5ML ONE (10:20)
[2022-08-06] MEDS ORDERED: ALBUTEROL 2.5 MG/3 ML NEB SOL ONE (10:20)
[2022-08-06] MEDS ORDERED: NA CHLORIDE 0.9% 500 ML ONE (10:23)
--- NOTE | 2022-08-06 10:42 | RAD REPORT ---
EXAM DESCRIPTION: RAD - Chest Single View - 08/06/2022 10:33 am CLINICAL HISTORY: resp distres Chest pain. COMPARISON: Chest Single View dated 02/02/2022; CHEST SINGLE VIEW dated 08/07/2011 FINDINGS: Portable technique limits examination quality. The lungs are grossly clear. The heart is normal in size. No displaced fractures.Tracheostomy tube in position. IMPRESSION: No acute intrathoracic process suspected.
[2022-08-06 10:56] LABS: Arterial Blood Carboxyhemoglob 1.2 % (0-1.5); Blood Gas Oxyhemoglobin 94.7 % (94-97); Blood O2 Saturation 96.9 % (92-98.5)
[2022-08-06 12:17] LABS: Absolute Lymphocytes (CBC) 1.5 K/uL (0.7-4.9); Hematocrit 45.1 % (39.6-49.0); Lymphocytes % 8.9 % (15.3-44.8); MCV 91.3 fL (80-100); MPV 8.6 fL (7.6-11.3); RBC Red Blood Cell Count 4.94 M/uL (4.33-5.43)
[2022-08-06 13:49] LABS: Bilirubin Total 0.4 mg/dL (0.2-1.0); Potassium 3.7 mEq/L (3.5-5.1); Protein, Total 7.5 g/dL (6.4-8.2); Troponin High Sensitivity 21.9 pg/mL (<58.9)
--- NOTE | 2022-08-06 15:34 | RAD REPORT ---
EXAM DESCRIPTION: CT - Chest For Pe Angio - 08/06/2022 2:37 pm CLINICAL HISTORY: DYSPNEA COMPARISON: THORAX WO CONTRAST dated 08/17/2012 TECHNIQUE: Thin axial CT images of the chest were obtained following administration of 100 mL Isovue 370 IV contrast. Multiplanar reconstructions, and maximum intensity projection reconstructions were generated and reviewed. Exam utilizes a protocol for optimal evaluation of pulmonary arterial tree. All CT scans are performed using dose optimization technique as appropriate and may include automated exposure control or mA/KV adjustment according to patient size. FINDINGS: Tracheostomy tube in place. Pulmonary arteries are normal. No emboli or other suspicious finding. No acute or significant aorta f indings. Diffuse wall thickening throughout the esophagus. This is nonspecific, and could relate to infectious or inflammatory esophagitis or reflux disease. Mild central reticular and ground-glass opacities in the lower lobes bilaterally, predominantly the u pper segments, as well as in the central left upper lobe. Mild bronchial wall thickening. Left upper lobe peripheral 1.7 centimeter cystic lesion. No pleural thickening or pleural effusion. No pneumotho rax. No abnormal mediastinal or hilar masses or lymphadenopathy seen. No chest wall mass or abnormal axill iary lymphadenopathy. IMPRESSION: No evidence of acute central pulmonary emboli. Central bilateral lower lobe and left upper lobe reticular and ground-glass opacities, with bronchial wall thickening, may relate to viral infection or resolving pneumonia. Diffuse wall thickening throughout the esophagus, nonspecific, which may relate to infectious or infl ammatory esophagitis or reflux disease.
[2022-08-06] MEDS ORDERED: AZITHROMYCIN 500 MG INJ IVPB ONE (16:03)
[2022-08-06] MEDS ORDERED: CEFTRIAXONE 1000 MG/VIAL ONE (16:03)
[2022-08-06] MEDS ORDERED: NA CHLORIDE 0.9% 250 ML ONE (16:03)
--- NOTE | 2022-08-06 16:23 | EDPHYS ---
Physician Documentation [facility] Name: Elliot Hathaway Age: 62 yrs Sex: Male : 1960 Arrival Date: 08/06/2022 Time: 09:57 Bed 13 Private MD: ED Physician Jorge Stuart HPI: 08/06 10:05 This 62 yrs old Male presents to ER via Unassigned with complaints of Shortness Of jr11 Breath. 10:05 Pt h/o being bed bound, craniectomy, here with acute onset dyspnea . jr11 10:06 [place]. Pt per EMS report was in usual state of health until this jr11 AM. Pt with h/o mucous plugging. No other history available. . Historical: - Allergies: 10:05 No Known Allergies; bp - PMHx: 10:05 Anxiety; chronic respiratory failure with hypoxia; DYSPHAGIA; GASTROSTOMY; HEART bp FAILURE; hemiplegia; Hyperlipidemia; MRSA; Seizures; - Immunization history:: Adult Immunizations up to date. - Social history:: Smoking status: Patient denies any tobacco usage or history of. ROS: 10:06 Unable to obtain ROS due to non verbal . jr11 Exam: 10:06 Head/Face: hemicraniectomy L side Neck: Trachea midline, no thyromegaly or masses jr11 palpated, and no cervical lymphadenopathy. Supple, full range of motion without nuchal rigidity, or vertebral point tenderness. No Meningismus. Chest/axilla: Normal chest wall appearance and motion. Nontender with no deformity. No lesions are appreciated. Cardiovascular: tachy regular Respiratory: trach in place, rhonchi diffusely Abdomen/GI: soft non tender, +gtube c/d/i MS/ Extremity: bilateral LE edema Vital Signs: 10:05 BP 164 / 106; Pulse 124; Resp 42; Temp 98.3; Pulse Ox 74% on R/A; bp 10:44 BP 136 / 96; Pulse 120; Resp 36; Pulse Ox 98% on Nebulizer Mask; bp 11:28 BP 137 / 91; Pulse 115; Resp 14; Pulse Ox 98% ; bp 13:00 BP 134 / 97; Pulse 112; Resp 20; Pulse Ox 97% ; bp 15:00 BP 140 / 99; Pulse 118; Resp 24; Pulse Ox 94% ; bp 16:13 BP 137 / 98; Pulse 118; Resp 20; Pulse Ox 93% ; bp 17:43 BP 145 / 93; Pulse 110; Resp 16; Pulse Ox 97% ; bp MDM: 10:03 Patient medically screened. 10:06 Differential diagnosis: pneumonia, pulmonary edema, reactive airway disease, mucous jr11 plug. Data reviewed: vital signs, nurses notes. 10:56 ED course: EKG interpreted by me shows normal sinus rhythm, left axis deviation, normal jr11 intervals, no acute ST changes. ED course: supervisor endless track vehicle interpreted by me shows sinus tachycardia rate of 120.. 15:47 ED course: Pt with concern for PNA, will treat and admit . 08/06 10:05 Order name: Blood Culture Adult (2) 08/06 10:05 Order name: CBC with Diff; Complete Time: 12:[address] [facility] 08/06 10:05 Order name: CMP; Complete Time: 13:[address] [facility] 08/06 10:05 Order name: Lactate w/ 2H reflex if indic.; Complete Time: 12:[address] [facility] 08/06 10:05 Order name: Protime (+inr); Complete Time: 13:51 08/06 10:05 Order name: Ptt, Activated; Complete Time: 13:[address] [facility] 08/06 10:05 Order name: Urinalysis w/ reflexes [facility] 08/06 10:05 Order name: ABG: Venous 08/06 10:05 Order name: BNP; Complete Time: 13:[address] [facility] 08/06 10:05 Order name: Troponin High Sensitivity; Complete Time: 13:[address] [facility] 08/06 10:17 Order name: RSV; Complete Time: 11:06 08/06 10:17 Order name: COVID-19 SARS RT PCR; Complete Time: 11:06 08/06 10:17 Order name: Influenza Screen (a \T\ B); Complete Time: 11:06 08/06 10:44 Order name: D-Dimer; Complete Time: 13:51 [facility] 08/06 15:31 Order name: Lactate Sepsis 2 HR Follow-up; Complete Time: 15:44 [facility] 08/06 17:39 Order name: CBC with Automated Diff [facility] 08/06 17:39 Order name: CBC with Automated Diff [facility] 08/06 17:39 Order name: Comprehensive Metabolic Panel [facility] 08/06 17:39 Order name: Comprehensive Metabolic Panel [facility] 08/06 17:39 Order name: Magnesium [facility] 08/06 17:39 Order name: Magnesium [facility] 08/06 10:05 Order name: Chest Single View XRAY; Complete Time: 10:47 08/06 13:52 Order name: CT Chest For PE Angio; Complete Time: 15:44 08/06 17:46 Order name: Chest Single View [facility] 08/06 17:46 Order name: Chest Single View [facility] 08/06 10:05 Order name: EKG; Complete Time: 10:06 08/06 17:37 Order name: CONS Physician Consult [facility] 08/06 17:39 Order name: CONS Physician Consult [facility] 08/06 17:39 Order name: NPO [facility] 08/06 17:47 Order name: Respiratory Therapy Consult [facility] 08/06 10:05 Order name: Accucheck; Complete Time: 10:[address] [facility] 08/06 10:05 Order name: Cardiac monitoring; Complete Time: 10:06 08/06 10:05 Order name: EKG - Nurse/Tech; Complete Time: 10:51 08/06 10:05 Order name: IV Saline Lock - Large Bore; Complete Time: 10:[address] [facility] 08/06 10:05 Order name: Labs collected and sent; Complete Time: 10:[address] [facility] 08/06 10:05 Order name: O2 Per Protocol; Complete Time: 10:06 08/06 10:05 Order name: O2 Sat Monitoring; Complete Time: 10:06 08/06 10:05 Order name: Vital Signs; Complete Time: 10:45 Administered Medications: 10:26 Drug: DuoNeb Nebulize (3:1) (2.5 mg - 0.5 mg) 9 ml Route: Nebulizer; [facility] 16:12 Follow up: Response: No adverse reaction bp 10:44 Drug: NS 0.9% IV 500 ml Route: IV; Rate: bolus; Site: left hand; bp 18:36 Follow up: IV Status: Completed infusion; IV Intake: 500ml bp 16:00 Drug: Rocephin IV 1 grams Route: IV; Rate: calculated rate; Site: left antecubital; bp 18:36 Follow up: IV Status: Completed infusion; IV Intake: 100ml bp 16:00 Drug: AZITHromycin IVPB 500 mg Route: IVPB; Infused Over: 1 hrs; Site: left antecubital;bp 18:35 Follow up: IV Status: Completed infusion; IV Intake: 250ml bp Disposition Summary: 08/06/22 16:23 Hospitalization Ordered Hospitalization Status: Inpatient Admission jr11 Provider: Bello Babb jr Condition: Serious jr11 Problem: new jr11 Symptoms: are unchanged jr11 Bed/Room Type: Standard [facility] Location: Telemetry/MedSurg (Inpatient)(08/06/22 18:51) eb Room Assignment: 204(08/06/22 18:51) eb Diagnosis - Severe sepsis without septic shock jr11 - Pneumonia due to other specified bacteria jr11 - Acute respiratory failure with hypoxia jr11 Forms: - Medication Reconciliation Form jr11 - SBAR form jr11 Signatures: Dispatcher [employer] EDMS Luis Adams RN RN Kandy Jimenez RN RN eb1 Jorge Stuart MD MD jr11 Jerrica Harvey RN RN kc6 Corrections: (The following items were deleted from the chart) 10:43 10:07 D-DIMER+COAG.LAB.BRZ ordered. EDMS EDMS 15:47 15:45 ED course: CT angiogram shows resolving pneumonia, will prescribe azithromycin jr11 just to assure that pneumonia is getting better. No more episodes of significant hypoxia, likely secondary to mucous plugging.. jr11 17:46 13:26 LACTATE+C.LAB.BRZ ordered. [facility]CA EDMS 18:32 16:23 Telemetry/MedSurg (Inpatient) jr11 bp 18:32 16:23 jr11 bp 18:51 18:32 [facility] ER HOLD bp eb1 18:51 18:32 ERHOLD- bp eb1
--- NOTE | 2022-08-06 16:23 | ER ---
Nurse's Notes [facility] Name: Elliot Hathaway Age: 62 yrs Sex: Male : 1960 Arrival Date: 08/06/2022 Time: 09:57 Bed 13 Private MD: Diagnosis: Severe sepsis without septic shock;Pneumonia due to other specified bacteria;Acute respiratory failure with hypoxia Presentation: 08/06 10:05 Chief complaint: EMS states: SENT FROM [facility] FOR SOB/HYPOXIA. Coronavirus screen: bp At this time, the client does not indicate any symptoms associated with coronavirus-19. Ebola Screen: No symptoms or risks identified at this time. Initial Sepsis Screen: Does the patient meet any 2 criteria? RR > 20 per min. HR > 90 bpm. Yes Does the patient have a suspected source of infection? Yes: Productive cough/pneumonia. Risk Assessment: Do you want to hurt yourself or someone else? Patient reports no desire to harm self or others. Onset of symptoms was August 06, 2022 at 09:30. 10:05 Method Of Arrival: EMS: [facility] bp 10:05 Acuity: KRISTINE 2 bp Triage Assessment: 10:05 General: Appears distressed, Behavior is AT BASELINE DIMINISHED CAPACITY. Pain: Unable bp to use pain scale. Patient appears. EENT: No deficits noted. Neuro: Level of Consciousness is AT BASELINE. Cardiovascular: Rhythm is sinus tachycardia. Respiratory: Reports shortness of breath Airway via trache Onset: The symptoms/episode began/occurred this morning, the patient has moderate shortness of breath. GI: PEG tube in place, clamped. : No signs and/or symptoms were reported regarding the genitourinary system. Derm: No deficits noted. Musculoskeletal: AT BASELINE. Historical: - Allergies: 10:05 No Known Allergies; bp - PMHx: 10:05 Anxiety; chronic respiratory failure with hypoxia; DYSPHAGIA; GASTROSTOMY; HEART bp FAILURE; hemiplegia; Hyperlipidemia; MRSA; Seizures; - Immunization history:: Adult Immunizations up to date. - Social history:: Smoking status: Patient denies any tobacco usage or history of. Screenin:05 [facility] ED Fall Risk Assessment (Adult) History of falling in the last 3 months, bp including since admission No falls in past 3 months (0 pts). Abuse screen: Denies threats or abuse. Denies injuries from another. Nutritional screening: No deficits noted. Tuberculosis screening: No symptoms or risk factors identified. Assessment: 10:05 General: RT PAGED FOR SUCTION. THICK SECRETIONS NOTED AT TRACH. bp 11:00 Reassessment: PHLEBOTOMY CONTACTED FOR LAB DRAW. bp 11:00 Cardiovascular: Rhythm is sinus tachycardia. Respiratory: Respiratory effort is bp labored, Breath sounds with crackles bilaterally. 13:00 Reassessment: Patient states symptoms have improved. bp 15:00 Reassessment: No changes from previously documented assessment. PT RETURNED FROM CT. bp 16:13 Reassessment: No changes from previously documented assessment. bp 17:44 Reassessment: ADMIT IN PROCESS. bp Vital Signs: 10:05 BP 164 / 106; Pulse 124; Resp 42; Temp 98.3; Pulse Ox 74% on R/A; bp 10:44 BP 136 / 96; Pulse 120; Resp 36; Pulse Ox 98% on Nebulizer Mask; bp 11:28 BP 137 / 91; Pulse 115; Resp 14; Pulse Ox 98% ; bp 13:00 BP 134 / 97; Pulse 112; Resp 20; Pulse Ox 97% ; bp 15:00 BP 140 / 99; Pulse 118; Resp 24; Pulse Ox 94% ; bp 16:13 BP 137 / 98; Pulse 118; Resp 20; Pulse Ox 93% ; bp 17:43 BP 145 / 93; Pulse 110; Resp 16; Pulse Ox 97% ; bp ED Course: 10:03 Patient arrived in ED. bp 10:03 Jorge Stuart MD is Attending Physician. jr11 10:05 Patient has correct armband on for positive identification. Bed in low position. Call bp light in reach. Side rails up X2. 10:26 Influenza Screen (a \T\ B) Sent. kc6 10:26 COVID-19 SARS RT PCR Sent. kc6 10:27 RSV Sent. kc6 10:30 Inserted saline lock: 20 gauge in left hand, using aseptic technique. Blood collected. bp 10:35 Chest Single View XRAY In Process Unspecified. EDMS 10:38 Luis Adams, EMA is Primary Nurse. bp 10:40 Triage completed. bp 10:57 EKG completed in triage. Results shown to MD. ll1 13:08 Inserted saline lock: 20 gauge in left antecubital area, using aseptic technique. kc6 ,using aseptic technique. placed by Dr. Stuart, ultrasound IV Blood collected. 14:39 CT Chest For PE Angio In Process Unspecified. EDMS 16:23 Bello Babb MD is Hospitalizing Provider. jr11 18:34 No provider procedures requiring assistance completed. Patient admitted, IV remains in bp place. Administered Medications: 10:26 Drug: DuoNeb Nebulize (3:1) (2.5 mg - 0.5 mg) 9 ml Route: Nebulizer; kc6 16:12 Follow up: Response: No adverse reaction bp 10:44 Drug: NS 0.9% IV 500 ml Route: IV; Rate: bolus; Site: left hand; bp 18:36 Follow up: IV Status: Completed infusion; IV Intake: 500ml bp 16:00 Drug: Rocephin IV 1 grams Route: IV; Rate: calculated rate; Site: left antecubital; bp 18:36 Follow up: IV Status: Completed infusion; IV Intake: 100ml bp 16:00 Drug: AZITHromycin IVPB 500 mg Route: IVPB; Infused Over: 1 hrs; Site: left antecubital;bp 18:35 Follow up: IV Status: Completed infusion; IV Intake: 250ml bp Medication: 19:41 VIS not applicable for this client. ll3 Intake: 18:35 IV: 250ml; Total: 250ml. bp 18:36 IV: 100ml; Total: 350ml. bp 18:36 IV: 500ml; Total: 850ml. bp Outcome: 16:23 Decision to Hospitalize by Provider. jr11 19:39 Patient left the ED. mb9 19:41 Admitted to Med/surg accompanied by tech, via stretcher, room 204, on monitor, with ll3 chart, Report called to Receiving RN 19:41 Condition: stable 19:41 Instructed on the need for admit. Signatures: Dispatcher [employer] EDMS Luis Adams RN RN bp Yeny Broderick RN RN ll1 Valentín Mcdonough, RN RN ll3 Jorge Stuart MD MD jr11 Jerrica Harvey RN RN kc6 Lina Williamson RN RN mb9 Corrections: (The following items were deleted from the chart) 15:13 13:00 Reassessment: Patient is alert, oriented x 3, equal unlabored respirations, skin bp warm/dry/pink. Patient states symptoms have improved. bp
[2022-08-06] MEDS ORDERED: ALBUTEROL 2.5 MG/3 ML NEB SOL NEB PRN (17:35)
--- NOTE | 2022-08-06 17:54 | P.HP ---
Certification for Inpatient Patient admitted to: Inpatient With expected LOS: >2 Midnights Practitioner: I am a practitioner with admitting privileges, knowledge of patient current condition, hospital course, and medical plan of care. Services: Services provided to patient in accordance with Admission requirements found in Title 42 Section 412.3 of the Code of Federal Regulations Patient History Date of Service: 08/06/22 Reason for admission: sepsis, pneumonia History of Present Illness: 62yo M, PMH: TBI, Anxiety, chronic respiratory failure with hypoxia (s/p trach), Dysphagia, gastrostomy, CHF, hemiplegia, Hyperlipidemia, MRSA, Seizures Sent to ED via EMS from [facility] due to 1 day of worsening shortness of breath and noted hypoxia on his trach collar. Patient is nonverbal but able to communicate via nodding yes/no, and thumbs up/down. Over the phone, son stated he saw the patient yesterday at [facility] and was in his usual state of health and "did not appear sick". Patient points with 1 finger that this has been going on for only 1 day, with increased secretions and chills. He currently feels better than when he first came in to the ED. Patient noted to have significant respiratory distress / work of breathing on arrival, improved after a lot of deep suctioning / removal of thick secretions. Labs noted leukocytosis, and elevated d-dimer, lactate >2. CTA negative for PE, notedf b/l opacities, worse on left, concerning for pneumonia. Patient was treated for sepsis with antibiotics and fluids. Lactate and vitals improved. Admitted for further management. Upon my assessment, he is breathing more comfortably per his own report. I noticed a wound on his head, patient used fingers and nodding to agree that it's been going on for 1 week or so. Son states they noticed a scab a few weeks ago, and asked the [facility] to evaluate further. This wednesday, patient was seen by wound care for the first time. On arrival here, he has some matting of his hair over an open wound, with some erythema and ?blood. At the time of my exam, I had not spoken to the son yet, and was unsure exactly how long this has been there and what was underneath, so I did not investigate further on exam. Allergies No Known Allergies Allergy (Unverified 05/24/22 13:26) - Past Medical/Surgical History Diabetic: No -: Other specified degenerative diseases of nervous system -: Chronic Respiratory Failure with hypoxia -: Dysphagia -: Gastrostomy -: Heart Failure, unspecified -: Hemiplegia -: Hyperlipidemia -: MRSA -: Seizures -: Anxiety -: PEG Psychosocial/ Personal History: unable to obtain - Family History Family History: Reviewed- Non-Contributory - Social History Smoking Status: Unknown if ever smoked Place of Residence: [place] Review of Systems 10-point ROS is otherwise unremarkable Physical Examination - Physical Exam General: Alert, Mild distress HEENT: Other (s/p L sided craniectomy, with wound and matted hair (see picture below)), EOMI, Sclerae nonicteric Neck: Supple, No LAD Respiratory: Diminished, Rhonchi/gurgles, Other (+trach with thick secretions) Cardiovascular: No edema, Regular rate/rhythm, No murmurs Gastrointestinal: Soft and benign, Non-distended, Other (PEG tube in place), Tenderness (mild, epigastric on deep palpation) Musculoskeletal: No swelling, No tenderness Integumentary: Other (matted hair overlying wound on L cranium at site of craniectomy) Neurological: Other (R hemiplegia, nonverbal, but responds appropriately / slowly to questions yes/no) - Studies Laboratory Data (last 24 hrs) 08/06/22 13:08: PT 11.0, INR 1.00, APTT 31.6 08/06/22 13:08: Sodium 141, Potassium 3.7, BUN 15, Creatinine 0.72, Glucose 89, Total Bilirubin 0.4, AST 58 H, ALT 58, Alkaline Phosphatase 133 H 08/06/22 11:51: WBC 17.50 H, Hgb 15.0, Hct 45.1, Plt Count 207 Microbiology Data (last 24 hrs): 08/06/22 10:21 Nasopharnyx Respiratory Syncytial Virus Ag Scrn - Final 08/06/22 10:21 Nasopharnyx Influenza Type A Antigen Screen - Final 08/06/22 10:21 Nasopharnyx Influenza Type B Antigen Screen - Final Assessment and Plan - Advance Directives Does patient have a Living Will: No Does patient have a Durable POA for Healthcare: No Physician Review Additional Text: Problem List acute on chronic hypoxic respiratory failure Pneumonia, suspect aspiration / thick secretions sepsis secondary to pneumonia L cranial wound R-sided paralysis s/p TBI; resection chronic pain on trach collar PEG tube sepsis and hypoxia secondary to pneumonia and increased thick secretions lots of trach / oral secretions RT consulted, frequent suctioning received rocephin /azithro in ED change to levaquin + vanc; cover for pseudomonas and MRSA, patient at risk for both, and +history of MRSA infection, as well as +nares in May at [facility] ID and pulm consulted confirm chronic meds, restart CXR in AM check sputum culture blood culture sent lactate improved to <2 patient had TBI ~6yrs ago, at [facility] for ~1 year patient was previously on hospice, but son states recently taken off hospice full code on chronic morphine and norco son states norco was being weaned down confirm chronic meds / dosing, not available to me at time of H&P will confirm and restart some; avoid opioid withdrawal confirm home meds / tube feeds restart once confirmed VTE: Lovenox Code: full Dispo: NH in ~3-4 days discussed with son on admission Time Spent Managing Pts Care (In Minutes): 70
[2022-08-06] MEDS: Levofloxacin 750mg IV 750 MG/150 ML BAG IV SCH (18:00)
[2022-08-06] MEDS: ENOXAPARIN 40 MG/0.4 ML SQ SCH (18:00)
[2022-08-06] MEDS: ONDANSETRON 4 MG/2 ML VIAL IV PRN (18:30)
[2022-08-06] MEDS: MORPHINE 2 MG/ML SYR IV PRN ×2 (18:30→22:11)
[2022-08-06] MEDS ORDERED: Levofloxacin 750mg IV 750 MG/150 ML BAG IV ONE (18:34)
[2022-08-06] MEDS ORDERED: ENOXAPARIN 40 MG/0.4 ML SQ ONE (18:35)
[2022-08-06] MEDS ORDERED: MORPHINE 2 MG/ML SYR ONE (18:47)
[2022-08-06] MEDS ORDERED: ONDANSETRON 4 MG/2 ML VIAL ONE (18:47)
[2022-08-06] MEDS ORDERED: VANCOMYCIN 1.75 GM in NA CHLORIDE 0.9% 500 ML IVPB ONE (19:00)
[2022-08-06] MEDS ORDERED: VANCOMYCIN 1.75 GM in NA CHLORIDE 0.9% 500 ML IVPB SCH (21:00)
[2022-08-06 21:52] VITALS: BMI 22.3
[2022-08-06] MEDS ORDERED: PROMETHAZINE INJ 25 MG/ML AMP IV ONE (22:03)
[2022-08-06] MEDS ORDERED: ALBUTEROL 2.5 MG/3 ML NEB SOL IH SCH (23:45)
[2022-08-06] MEDS ORDERED: guaiFENesin 100 MG/5 ML UCUP FT PRN (23:56)
[2022-08-06] MEDS ORDERED: MORPHINE SULF 10 MG/5 ML OSYR FT PRN (23:56)
[2022-08-06] MEDS ORDERED: BISACODYL 10 MG RECTAL SUPP RC PRN (23:56)
[2022-08-06] MEDS ORDERED: ACETAMINOPHEN 650MG/RECT SUPP PR PRN (23:56)
[2022-08-06] MEDS ORDERED: POLYVINYL ALCOHOL 1.4% 15 ML OPTH PRN (23:56)
[2022-08-06] MEDS ORDERED: LORAZEPAM 0.5 MG TABLET FT PRN (23:56)
[2022-08-07] MEDS: ALBUTEROL 2.5 MG/3 ML NEB SOL IH SCH ×4 (00:40→19:41)
[2022-08-07] MEDS: ONDANSETRON 4 MG/2 ML VIAL IV PRN ×2 (02:17→20:21)
[2022-08-07] MEDS: MORPHINE 2 MG/ML SYR IV PRN ×2 (03:46→20:21)
[2022-08-07 06:41] LABS: Absolute Lymphocytes (CBC) 0.8 K/uL (0.7-4.9); Hematocrit 43.7 % (39.6-49.0); Lymphocytes % 4.1 % (15.3-44.8); MCV 91.7 fL (80-100); MPV 8.5 fL (7.6-11.3); RBC Red Blood Cell Count 4.76 M/uL (4.33-5.43)
[2022-08-07] MEDS ORDERED: VANCOMYCIN 1 GM in NA CHLORIDE 0.9% 250 ML IVPB SCH (07:00)
[2022-08-07 07:07] LABS: Albumin 2.8 g/dL (3.4-5.0); Bilirubin Total 0.7 mg/dL (0.2-1.0); Magnesium 1.9 mg/dL (1.6-2.4); Potassium 3.9 mEq/L (3.5-5.1); Protein, Total 7.4 g/dL (6.4-8.2)
[2022-08-07 07:33] LABS: Platelet Estimate ADEQ; White Blood Cell Scan OK (OK)
[2022-08-07 07:34] LABS: Blood Morphology Comment NOT SEEN (NOT SEEN)
--- NOTE | 2022-08-07 08:35 | RAD REPORT ---
[facility] 4[facility]35 am CLINICAL HISTORY: f/u opacities COMPARISON: Chest Single View dated 08/06/2022; Chest Single View dated 02/02/2022; CHEST SINGLE VIEW dated 08/07/2011 TECHNIQUE: Portable AP view of the chest. FINDINGS: The lungs are clear. Decreased inspiratory effort limits evaluation. Minimal left basilar atelectasis is stable. No pneumothorax or effusion. The cardiomediastinal contours are unremarkable. IMPRESSION: No acute cardiopulmonary process. Stable findings.
--- NOTE | 2022-08-07 08:51 | EKG ---
Test Date: 2022-08-06 Test Time: 10:52:40 Global Sales Director: HEYDI MEASUREMENT RESULTS: Intervals: Rate: 122 ME: 158 QRSD: 72 QT: 322 QTc: 458 [place]: P: 62 ME: 158 QRS: -52 T: 35 INTERPRETIVE STATEMENTS: Sinus tachycardia Left axis deviation Inferior infarct, age undetermined Abnormal ECG Compared to ECG 02/02/2022 02:10:30 Myocardial infarct finding now present Electronically Signed On 08-07-22 08:48:13 CDT by Darryl Li
[2022-08-07] MEDS ORDERED: SCOPOLAMINE HYDROBROMIDE PATCH TD SCH (09:00)
[2022-08-07] MEDS: MINERAL OIL OPTH SCH ×4 (09:00→19:39)
[2022-08-07] MEDS: MUPIROCIN 2% OINT 22GM TUBE TOP SCH (09:00)
[2022-08-07] MEDS: [UNRECOGNIZED DRUG - OTHER] OPTH SCH ×4 (09:00→19:39)
[2022-08-07] MEDS ORDERED: POTASSIUM 25 MEQ EFFERV TAB PO ONE (09:00)
[2022-08-07] MEDS: PETROLATUM WHITE OPTH SCH ×4 (09:00→19:39)
[2022-08-07] MEDS: HYDROCODONE/APAP 10/325 TAB PO SCH ×3 (09:25→15:02)
[2022-08-07] MEDS: DOCUSATE NA/SENNA CONC 1 TAB FT SCH (09:25)
[2022-08-07] MEDS: TIZANIDINE 4 MG TABLET FT SCH ×2 (09:25→20:21)
[2022-08-07] MEDS: GABAPENTIN 300 MG CAP FT SCH ×3 (09:25→20:21)
[2022-08-07] MEDS: SERTRALINE HCL 50 MG TAB FT SCH (09:25)
[2022-08-07] MEDS: LORATADINE 10 MG TAB FT SCH (09:25)
[2022-08-07] MEDS: VALPROIC ACID 250 MG/5 ML OSYR FT SCH ×2 (09:26→20:21)
[2022-08-07] MEDS: LACTULOSE 20 GM/30 ML UCUP FT SCH (09:26)
[2022-08-07] MEDS: ENOXAPARIN 40 MG/0.4 ML SQ SCH (09:26)
[2022-08-07] MEDS: VANCOMYCIN 1.25 GM in NA CHLORIDE 0.9% 250 ML IVPB SCH ×2 (09:28→20:21)
--- NOTE | 2022-08-07 09:36 | P.CNS ---
Date of Consult: 08/07/22 Reason for Consult: sepsis, pneumonia Chief Complaint: sepsis, pneumonia History of Present Illness: Patient is a 62 yo male with a history of TBI s/p left craniectomy, chronic respiratory failure trach dependent, PEG tube and seizures who presented to the ED from senior care with complaints of shortness of breath and hypoxia. Patient also has a reported history of MRSA and presents with a wound to his left scalp. ED workup revealing bilateral pneumonia and ID was consulted. Allergies No Known Allergies Allergy (Unverified 05/24/22 13:26) Home medications list reviewed: Yes Home Medications: Acetaminophen [Tylenol Suppository] 650 mg AL Q6HP PRN 08/06/22 Acetaminophen [Tylenol] 650 mg FT Q4HP PRN 08/06/22 Albuterol Sulfate [Albuterol Sulfate 0.083% Neb Soln] 2.5 mg IH Q6H 08/06/22 Bisacodyl [Dulcolax] 10 mg RC DAILY PRN 08/06/22 Carboxymethylcellulose Sodium [Artificial Tears] 1 gtt EACH EYE Q12HP PRN 08/06/22 Gabapentin 300 mg FT TID 08/06/22 Hydrocodone 10/APAP 325 [[place] 10/325] 1 tab PO Q8H 08/06/22 Hyoscyamine Sulfate [Levsin] 0.125 mg FT Q4HP PRN 08/06/22 LORazepam [Ativan] 0.5 mg FT Q2HP PRN 08/06/22 Lactose-Reduced Food/Fiber [Isosource 1.5 Meño Tube Feed Lq] 55 ml FT CONT 08/06/22 Lactulose 30 ml FT DAILY 08/06/22 Loratadine [Claritin] 10 mg FT DAILY 08/06/22 Mineral Oil/Petrolatum,White [Refresh P.m. Ointment] 0.25 inch LEFT EYE QID 08/06/22 Morphine 1 ml FT Q2HP PRN 08/06/22 Morphine. 0.5 ml FT Q2HP PRN 08/06/22 Morphine. 0.5 ml FT Q6H 08/06/22 Mupirocin Calcium [Mupirocin] 1 appl TP DAILY 08/06/22 Promethazine Suppos [Phenergan] 25 mg AL Q6HP PRN 08/06/22 Scopolamine 1 each TD Q72H 08/06/22 Sennosides/Docusate Sodium [Senna Plus 8.6-50 mg Tablet] 2 each FT DAILY 08/06/22 Sertraline HCl 50 mg FT DAILY 08/06/22 Sodium Chloride 0.9 % (Flush) [[place] Sodium Chlor Flush] 5 ml .ROUTE PRN 08/06/22 Tizanidine HCl 4 mg FT BID 08/06/22 Valproic Acid (As Sodium Salt) [Valproic Acid] 250 mg FT BID 08/06/22 guaiFENesin [Chiquita-Tussin] 10 ml FT Q8H PRN 08/06/22 - Past Medical/Surgical History Diabetic: No -: Other specified degenerative diseases of nervous system -: Chronic Respiratory Failure with hypoxia -: Dysphagia -: Gastrostomy -: Heart Failure, unspecified -: Hemiplegia -: Hyperlipidemia -: MRSA -: Seizures -: Anxiety -: depression -: conjuctivitis -: PEG Psychosocial/ Personal History: unable to obtain - Social History Smoking Status: Unknown if ever smoked Alcohol use: No CD- Drugs: No Caffeine use: No Place of Residence: [facility] Review of Systems 10-point ROS is otherwise unremarkable General: Weakness Respiratory: Shortness of Breath Neurological: Seizures Physical Examination Temp Pulse Resp BP Pulse Ox 97.3 F 105 H 24 H 146/99 H 97 08/07/22 08:00 08/07/22 08:00 08/07/22 09:25 08/07/22 08:00 08/07/22 09:25 General: In no apparent distress, Oriented x1, Cooperative HEENT: Other (left side craniectomy) Neck: Other (tracheostomy) Respiratory: Diminished, Rhonchi/gurgles, Other (on 5L trach collar) Cardiovascular: No edema, Regular rate/rhythm, No murmurs Gastrointestinal: Normal bowel sounds, Non-distended, Other (PEG tube) Musculoskeletal: No swelling, No tenderness Integumentary: No rashes, Skin lesion (left side scalp) Neurological: Other (responds via nodding head yes/no. Right hemiplegia ) Laboratory Data - Reviewed Microbiology Data - Reviewed Imagings Data: - CT Chest 08/06: "No evidence of acute central pulmonary emboli. Central bilateral lower lobe and left upper lobe reticular and ground-glass opacities, with bronchial wall thickening, may relate to viral infection or resolving pneumonia. Diffuse wall thickening throughout the esophagus, nonspecific, which may relate to infectious or inflammatory esophagitis or reflux disease." - XR Chest 08/07: "FINDINGS: The lungs are clear. Decreased inspiratory effort limits evaluation. Minimal left basilar atelectasis is stable. No pneumothorax or effusion. The cardiomediastinal contours are unremarkable." Conclusions/Impression: Problem List Chronic Respiratory Failure with Hypoxia s/p trach TBI s/p left side craniectomy PEG tube Hemiplegia Hyperlipidemia MRSA Seizure Disorder Anxiety CHF Pneumonia Sepsis Sepsis Pneumonia - Blood cultures 08/06: Pending - CT chest findings consistent with bilateral pneumonia - Sputum culture 08/07:pending - Currently on Levaquin (08/06) and Vancomycin (08/07) Scalp wound - Wound culture 08/07: Pending - history of MRSA Recommendations - Continue current antibiotics for now - Continue Bactroban ointment to scalp wound for now. Awaiting wound culture reports. - Follow up with sputum culture results - Monitor WBC and fever trends - Continue nebulizer treatments and trach care ID will follow up with patient as needed. Case discussed with Bassam Ibrahim
[2022-08-07] MEDS: Levofloxacin 750mg IV 750 MG/150 ML BAG IV SCH (18:29)
[2022-08-08] MEDS: ALBUTEROL 2.5 MG/3 ML NEB SOL IH SCH ×4 (01:50→19:20)
[2022-08-08] MEDS: [UNRECOGNIZED DRUG - OTHER] OPTH SCH ×4 (07:02→20:21)
[2022-08-08] MEDS: MINERAL OIL OPTH SCH ×4 (07:02→20:21)
[2022-08-08] MEDS: PETROLATUM WHITE OPTH SCH ×4 (07:02→20:21)
[2022-08-08] MEDS: VANCOMYCIN 1.25 GM in NA CHLORIDE 0.9% 250 ML IVPB SCH ×2 (08:38→15:07)
[2022-08-08] MEDS: MUPIROCIN 2% OINT 22GM TUBE TOP SCH (09:00)
[2022-08-08] MEDS: VALPROIC ACID 250 MG/5 ML OSYR FT SCH ×2 (09:06→20:21)
[2022-08-08] MEDS: TIZANIDINE 4 MG TABLET FT SCH ×2 (09:06→20:21)
[2022-08-08] MEDS: DOCUSATE NA/SENNA CONC 1 TAB FT SCH (09:06)
[2022-08-08] MEDS: GABAPENTIN 300 MG CAP FT SCH ×3 (09:06→20:21)
[2022-08-08] MEDS: HYDROCODONE/APAP 10/325 TAB PO SCH ×3 (09:06→15:07)
[2022-08-08] MEDS: SERTRALINE HCL 50 MG TAB FT SCH (09:06)
[2022-08-08] MEDS: LACTULOSE 20 GM/30 ML UCUP FT SCH (09:06)
[2022-08-08] MEDS: ENOXAPARIN 40 MG/0.4 ML SQ SCH (09:07)
[2022-08-08] MEDS: LORATADINE 10 MG TAB FT SCH (09:07)
[2022-08-08] MEDS ORDERED: NA CHLORIDE 0.9% 500 ML IV ONE (12:15)
[2022-08-08] MEDS: JEVITY 1.2 CAL LIQUID 1,000 ML BOT FT SCH (12:25)
[2022-08-08] MEDS ORDERED: POTASSIUM 25 MEQ EFFERV TAB PO ONE (14:00)
[2022-08-08] MEDS: Levofloxacin 750mg IV 750 MG/150 ML BAG IV SCH (17:15)
[2022-08-08] MEDS: MORPHINE 2 MG/ML SYR IV PRN ×2 (17:22→22:17)
[2022-08-09] MEDS: ALBUTEROL 2.5 MG/3 ML NEB SOL IH SCH ×4 (01:35→18:55)
[2022-08-09] MEDS: MORPHINE 2 MG/ML SYR IV PRN ×2 (05:33→11:34)
[2022-08-09 07:10] LABS: Absolute Lymphocytes (CBC) 0.8 K/uL (0.7-4.9); Hematocrit 40.4 % (39.6-49.0); Lymphocytes % 6.5 % (15.3-44.8); MCV 94.2 fL (80-100); MPV 8.9 fL (7.6-11.3); RBC Red Blood Cell Count 4.28 M/uL (4.33-5.43)
[2022-08-09 07:36] LABS: Albumin 2.5 g/dL (3.4-5.0); Bilirubin Total 0.3 mg/dL (0.2-1.0); Potassium 3.6 mEq/L (3.5-5.1); Protein, Total 6.5 g/dL (6.4-8.2)
--- NOTE | 2022-08-09 08:23 | RAD REPORT ---
EXAM DESCRIPTION: [facility] Single View08/09/2022 6:47 am CLINICAL HISTORY: Chest pain COMPARISON: August 07, 2022 FINDINGS: Development of mild to moderate left pulmonary opacities. Right lung probably clear of acute infiltrate. Borderline cardiomegaly IMPRESSION: Mild to moderate left pulmonary opacities probably pneumonia There may be small left pleural effusion
[2022-08-09] MEDS: SERTRALINE HCL 50 MG TAB FT SCH (08:48)
[2022-08-09] MEDS: LACTULOSE 20 GM/30 ML UCUP FT SCH (08:48)
[2022-08-09] MEDS: VALPROIC ACID 250 MG/5 ML OSYR FT SCH ×2 (08:48→20:53)
[2022-08-09] MEDS: ENOXAPARIN 40 MG/0.4 ML SQ SCH (08:48)
[2022-08-09] MEDS: MUPIROCIN 2% OINT 22GM TUBE TOP SCH (08:49)
[2022-08-09] MEDS: MINERAL OIL OPTH SCH ×4 (08:49→21:00)
[2022-08-09] MEDS: TIZANIDINE 4 MG TABLET FT SCH ×2 (08:49→20:54)
[2022-08-09] MEDS: LORATADINE 10 MG TAB FT SCH (08:49)
[2022-08-09] MEDS: PETROLATUM WHITE OPTH SCH ×4 (08:49→21:00)
[2022-08-09] MEDS: HYDROCODONE/APAP 10/325 TAB PO SCH ×3 (08:49→16:59)
[2022-08-09] MEDS: [UNRECOGNIZED DRUG - OTHER] OPTH SCH ×4 (08:49→21:00)
[2022-08-09] MEDS: GABAPENTIN 300 MG CAP FT SCH ×3 (08:49→20:53)
[2022-08-09] MEDS: DOCUSATE NA/SENNA CONC 1 TAB FT SCH (08:49)
[2022-08-09] MEDS ORDERED: JEVITY 1.2 CAL LIQUID 1,000 ML BOT FT SCH (09:00)
[2022-08-09] MEDS ORDERED: POTASSIUM 25 MEQ EFFERV TAB PO ONE (09:00)
[2022-08-09] MEDS: VANCOMYCIN 1.25 GM in NA CHLORIDE 0.9% 250 ML IVPB SCH ×2 (09:37→20:51)
[2022-08-09] MEDS: ONDANSETRON 4 MG/2 ML VIAL IV PRN (11:34)
[2022-08-09] MEDS ORDERED: D5W 1,000 ML IV SCH (13:00)
[2022-08-09] MEDS: JEVITY 1.2 CAL LIQUID 1,000 ML BOT FT SCH (13:06)
[2022-08-09] MEDS: Levofloxacin 750mg IV 750 MG/150 ML BAG IV SCH (16:59)
[2022-08-10] MEDS: HYDROCODONE/APAP 10/325 TAB PO SCH ×2 (00:51→08:24)
[2022-08-10 00:59] VITALS: TEMP 98.1
[2022-08-10] MEDS: ALBUTEROL 2.5 MG/3 ML NEB SOL IH SCH ×2 (01:15→07:30)
--- NOTE | 2022-08-10 01:24 | P.PN ---
Date of Service: 08/07/22 Subjective Unable to give much information from patient. Spoke to nursing staff and patient's wound is clean. Patient appears to be doing better clinically. Nutritional intake is very poor. Physical Examination - Vitals reviewed - Physical Exam General: Alert, Mild distress HEENT: s/p L sided craniectomy, with wound now cleaned Neck: Supple, No LAD; tracheostomy w/ trach collar Respiratory: Diminished, but o/w clear Cardiovascular: Regular rate/rhythm, No murmurs Gastrointestinal: Soft and benign, Non-distended, Other (PEG tube in place), Musculoskeletal: No swelling, No tenderness Integumentary: Other (matted hair overlying wound on L cranium at site of craniectomy) Neurological: Other (R hemiplegia, nonverbal, but responds appropriately / slowly to questions yes/no) Assessment and Plan Problem List Acute on chronic hypoxic respiratory failure Pneumonia, suspect aspiration / thick secretions Sepsis secondary to pneumonia 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 Continue with IV antibiotics 2. Awaiting sputum and blood culture 3. Repeat chest x-ray 4. Resume TFs 5. Wound care 6. Continue with nebs as needed 7. O2 per protocol 8. Continue with gentle hydration 9. Repeat labs 10. GI and DVT prophylaxis
--- NOTE | 2022-08-10 01:27 | P.PN ---
Date of Service: 08/08/22 Subjective Patient continues to do well. Clinical symptoms are improving. Started tube feedings. Continue to advanced echo to goal. Plan to transfer back to [facility] over next 24-48 hours. Physical Examination - Vitals reviewed - Physical Exam General: Alert, nods yes HEENT: s/p L sided craniectomy, with wound now cleaned Neck: Supple, No LAD; tracheostomy w/ trach collar Respiratory: Diminished, but o/w clear Cardiovascular: Regular rate/rhythm, No murmurs Gastrointestinal: Soft and benign, Non-distended, Other (PEG tube in place), Musculoskeletal: No swelling, No tenderness Integumentary: Other (matted hair overlying wound on L cranium at site of craniectomy) Neurological: Other (R hemiplegia, nonverbal, but responds appropriately / slowly to questions yes/no) Assessment and Plan Problem List Acute on chronic hypoxic respiratory failure Pneumonia, suspect aspiration / thick secretions Sepsis secondary to pneumonia 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 Continue with IV antibiotics 2. Culture negaive 3. Repeat chest x-ray 4. Resume TFs 5. Wound care 6. Continue with nebs as needed 7. O2 per protocol 8. Continue with gentle hydration 9. Repeat labs 10. GI and DVT prophylaxis
--- NOTE | 2022-08-10 01:34 | P.PN ---
Date of Service: 08/09/22 Subjective Patient continues to do well. Clinical symptoms are improving. Started tube feedings. Continue to advanced echo to goal. Plan to transfer back to residential over next 24-48 hours. Physical Examination - Vitals reviewed - Physical Exam General: Alert, nods yes HEENT: s/p L sided craniectomy, with wound now cleaned Neck: Supple, No LAD; tracheostomy w/ trach collar Respiratory: Diminished, but o/w clear Cardiovascular: Regular rate/rhythm, No murmurs Gastrointestinal: Soft and benign, Non-distended, Other (PEG tube in place), Musculoskeletal: No swelling, No tenderness Integumentary: Other (matted hair overlying wound on L cranium at site of craniectomy) Neurological: Other (R hemiplegia, nonverbal, but responds appropriately / slowly to questions yes/no) Assessment and Plan Problem List Acute on chronic hypoxic respiratory failure Pneumonia, suspect aspiration / thick secretions Sepsis secondary to pneumonia 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 Continue with IV antibiotics 2. Culture negaive 3. Repeat chest x-ray 4. Resume TFs to goal 5. Wound care 6. Continue with nebs as needed 7. O2 per protocol 8. Continue with gentle hydration 9. Repeat labs; if sodium is corrected and planned discharge in the AM 10. GI and DVT prophylaxis
[2022-08-10] MEDS: MORPHINE 2 MG/ML SYR IV PRN (04:24)
[2022-08-10 07:02] LABS: Hematocrit 35.6 % (39.6-49.0); Lymphocytes % 9.5 % (15.3-44.8); MCV 91.6 fL (80-100); MPV 8.6 fL (7.6-11.3); RBC Red Blood Cell Count 3.89 M/uL (4.33-5.43)
[2022-08-10 07:06] LABS: Magnesium 1.7 mg/dL (1.6-2.4); Potassium 3.4 mEq/L (3.5-5.1)
[2022-08-10] MEDS: VANCOMYCIN 1.25 GM in NA CHLORIDE 0.9% 250 ML IVPB SCH (08:24)
[2022-08-10] MEDS: LACTULOSE 20 GM/30 ML UCUP FT SCH (08:24)
[2022-08-10] MEDS: DOCUSATE NA/SENNA CONC 1 TAB FT SCH (08:25)
[2022-08-10] MEDS: GABAPENTIN 300 MG CAP FT SCH (08:25)
[2022-08-10] MEDS: SERTRALINE HCL 50 MG TAB FT SCH (08:25)
[2022-08-10] MEDS: ENOXAPARIN 40 MG/0.4 ML SQ SCH (08:25)
[2022-08-10] MEDS: LORATADINE 10 MG TAB FT SCH (08:25)
[2022-08-10] MEDS: TIZANIDINE 4 MG TABLET FT SCH (08:28)
[2022-08-10 09:16] VITALS: BP 126/63
--- NOTE | 2022-08-10 09:28 | P.PN ---
Date of Service: 08/10/22 Chief Complaint: sepsis, pneumonia Subjective: Improving. Patient resting comfortably in bed. NAD. No new or worsening complaints. Physical Examination Temp Pulse Resp BP Pulse Ox 98.1 F 91 H 18 126/63 100 08/10/22 08:00 08/10/22 08:00 08/10/22 08:00 08/10/22 08:00 08/10/22 08:00 General: In no apparent distress, Oriented x1, Cooperative HEENT: Other (left side craniectomy) Neck: Other (tracheostomy) Respiratory: Diminished, Rhonchi/gurgles, Other (on 5L trach collar) Cardiovascular: No edema, Regular rate/rhythm, No murmurs Gastrointestinal: Normal bowel sounds, Non-distended, Other (PEG tube) Musculoskeletal: No swelling, No tenderness Integumentary: No rashes, Skin lesion (left side scalp) Neurological: Other (responds via nodding head yes/no. Right hemiplegia ) Laboratory Data - Reviewed Microbiology Data - Reviewed Imagings Data: - CT Chest 08/06: "No evidence of acute central pulmonary emboli. Central bilat eral lower lobe and left upper lobe reticular and ground-glass opacities, with bronchial wall thickening, may relate to viral infection or resolving pneumonia. Diffuse wall thickening throughout the esophagus, nonspecific, which may relate to infectious or inflammatory esophagitis or reflux disease." - XR Chest 08/07: "FINDINGS: The lungs are clear. Decreased inspiratory effort limits evaluation. Minimal left basilar atelectasis is stable. No pneumothorax or effusion. The cardiomediastinal contours are unremarkable." Conclusions/Impression: Problem List Chronic Respiratory Failure with Hypoxia s/p trach TBI s/p left side craniectomy PEG tube Hemiplegia Hyperlipidemia MRSA Seizure Disorder Anxiety CHF Pneumonia Sepsis Sepsis Pneumonia - Blood cultures 08/06: No growth to date - CT chest findings consistent with bilateral pneumonia - Sputum culture 08/07: collected 08/10, pending. - Currently on Levaquin (08/06) and Vancomycin (08/07) Scalp wound - Wound culture 08/07: 4+ staph coagulase - history of MRSA - Bactroban ointment to scalp wound Recommendations - Pneumonia: continue Levaquin x 7 days (started 08/06). Currently day 5 of 7. - Continue Bactroban ointment to scalp wound - Follow up with sputum culture results - Monitor WBC and fever trends - Continue nebulizer treatments and trach care ID will follow up with patient as needed. Case discussed with Bassam Ibrahim
[2022-08-10 11:43] VITALS: O2SAT 100
== END 2022-08-10 11:48 | DRG 871 ==
LOC: ER 09:57 → ERHOLD 17:34 → 2ND 19:36
PROVIDERS: ADMIT Hospitalist; ATTEND Hospitalist
DX: A41.52 Sepsis due to Pseudomonas (principal); J15.1 Pneumonia due to Pseudomonas; J96.21 Acute and chronic respiratory failure with hypoxia; R65.20 Severe sepsis without septic shock; E78.5 Hyperlipidemia, unspecified; I50.9 Heart failure, unspecified; F41.9 Anxiety disorder, unspecified; G83.9 Paralytic syndrome, unspecified; G89.29 Other chronic pain; G40.909 Epilepsy, unspecified, not intractable, without status epilepticus; Z93.0 Tracheostomy status; Z74.01 Bed confinement status; Z93.1 Gastrostomy status; Z86.14 Personal history of Methicillin resistant Staphylococcus aureus infection; Z87.820 Personal history of traumatic brain injury; Z20.822 Contact with and (suspected) exposure to COVID-19
CPT/HCPCS: 36415; 36600; 71045; 71275; 80048; 80053; 80202; 82805; 83605; 83735; 83880; 84132; 84145; 84484; 85025; 85379; 85610; 85730; 87040; 87070; 87077; 87186; 87205; 87635; 87804; 87807; 93005; 94640; 94760; 96361; 96365; 96366; 96368; 99285; J0696; J1650; J2270; J2405; J2550; J7040; J7050; J7613; J7644; Q9967

== ENCOUNTER 2022-10-12 00:27 | Inpatient (IN) | payer OTHER ==
--- OUTSIDE RECORDS SUMMARY | 2022-10-12 00:36 | XMS REPORT | Continuity of Care Document ---
:1960 Author Organization [facility] t Address [address] [place] [address] [address] [place] [address] Care Team Providers Name Role Phone No , Pcp Primary Care Physician Unavailable SOPHIE LAZCANO Attending Clinician Unavailable REBECA JUAREZ Attending Clinician Unavailable Doctor Unassigned, [place] Attending Clinician Unavailable Becca Dempsey RN Attending Clinician AALIYAH SANCHEZ Attending Clinician Unavailable Aaliyah Sanchez MD Attending Clinician Natalie Chopra MD Attending Clinician CARLOS SEYMOUR Attending Clinician Unavailable Dave Love MD Attending Clinician Rian Negrete MD Attending Clinician Carlos Seymour DO Attending Clinician Lynn Abraham MD Attending Clinician ANNETTE WALDEN Attending Clinician Unavailable ANNETTE WALDEN Attending Clinician Unavailable Luis Méndez MD Attending Clinician Annette Walden DO Attending Clinician NEVA MACHUCA Attending Clinician Unavailable NEVA MACHUCA Attending Clinician Unavailable GERI BALDERAS Attending Clinician Unavailable Geri Balderas MD Attending Clinician Veronica YORK, Kristie Attending Clinician AWILDA Attending Clinician Unavailable KRISTIE MARTIN Attending Clinician Unavailable Amos Andrews DO Attending Clinician AMOS ANDREWS Attending Clinician Unavailable Liz BOO, Chinmay A Attending Clinician Unavailable Sam Balbuena DO Attending Clinician Kiet Madera MD Attending Clinician Katherine DENTAL ASSOCIATEPaty Attending Clinician Taylor Snow LMSW Attending Clinician Sophie Lazcano MD Attending Clinician [place], Adc Test Attending Clinician Unavailable Denny Hammer DO Attending Clinician RAIZA RUSH Attending Clinician Unavailable Raiza Rush MD Attending Clinician [phone] Gema Thomson DPM Attending Clinician [phone] GEMA THOMSON Attending Clinician Unavailable Madonna Garcia MD Attending Clinician MADONNA GARCIA Attending Clinician Unavailable Feli White DO Attending Clinician Eboni Christianson Attending Clinician EBONI COFFMAN Attending Clinician Unavailable Pavan Craig MD Attending Clinician PAVAN CRAIG Attending Clinician Unavailable Kayla Lucas Attending Clinician Unavailable Sobia Ace MD Attending Clinician SOBIA ACE Attending Clinician Unavailable [facility], Adc Cardio Fac Attending Clinician Unavailable , Adc Cardio Fac Room Attending Clinician Unavailable Ryland YORK, Isaias Ohara Attending Clinician Andi Castrejon MD Attending Clinician Christos YORK, Ricky Attending Clinician Eliu Wallace MD Attending Clinician JONATHAN LING Attending Clinician Unavailable ROSALIE MAGAÑA Attending Clinician Unavailable SOPHIE LAZCANO Admitting Clinician Unavailable NATALIE CHOPRA Admitting Clinician Unavailable Natalie Chopra MD Admitting Clinician LYNN ABRAHAM Admitting Clinician Unavailable NEVA MACHUCA Admitting Clinician Unavailable AMBREEN_KEYON Admitting Clinician Unavailable EVELYN VALENCIA Admitting Clinician Unavailable Sam Balbuena DO Admitting Clinician Sophie Lazcano MD Admitting Clinician SOBIA ACE Admitting Clinician Unavailable Ricky Sher MD Admitting Clinician Eliu Wallace MD Admitting Clinician FARNAZ DELGADO Admitting Clinician Unavailable Payers Payer Name Policy Type Policy Number Effective Date Expiration Date Formerly [facility] [id number] 2017 CHOICE 00:00:00 [facility] [id number] 2017 00:00:00 [facility] [employer] [id number] 2019 00:00:00 Problems Condition Condition Condition Status Onset Resolution Last Treating Co mments Source Name Details Category Date Date Treatment Clinician Date Vomiting Vomiting Disease Active Unive rs 4-17 ity of 00:00: [place] 00 Medical Branch Pneumonia Pneumonia Disease Active 2021-02 Uni vers of both of both 2-26 ity of lower lower 00:00: [place] lobes due lobes due 00 Medi sydnee to to Branch infectious infectious organism organism Skull Skull Disease Active Univers fracture fracture 1-20 ity of with with 00:00: [place] cerebral cerebral 00 Medica l contusion, contusion, Br anch sequela sequela Skin tag Skin tag Disease Active Unive rs 1-20 ity of 00:00: [place] 00 Medical Branch Sepsis Sepsis Disease Active Univers 7-12 ity of 00:00: [place] 00 Medical Branch Tracheosto Tracheosto Disease Active U nivers my status my status 5-13 ity of 00:00: [place] 00 Medical Branch Hospice Hospice Disease Active Overview: [facility] ers care care 3-05 Formattin ity of patient patient 00:00: g of this [place] 00 note Medical might be Branch different from the original. Added automatic ally from request for surgery [id number] Encounter Encounter Disease Active 2019-02 Uni vers for for 1-11 ity of screening screening 00:00[place] for for 00 Medical malignant malignant Bran ch neoplasm neoplasm of lung of lung Anxiety, Anxiety, Disease Active 2019-02 Unive rs generalize generalize 1-11 it y of d d 00:00: [place] [facility] Agitation Agitation Disease Active 2019-02 Uni vers states as states as 1-11 ity of acute acute 00:00: [place] reaction reaction 00 Medica l to to Branch exceptiona exceptiona l (gross) l (gross) stress stress Spasticity Spasticity Disease Active 2019- U nivers 7- ity of 00:00: [place] [facility] Fungal Fungal Disease Active Univers nail nail 7-01 ity of infection infection 00:00[place] Change in Change in Disease Active Uni vers nail nail 7 ity of appearance appearance 00:00: [place] Paralysis Paralysis Disease Active 2019- Uni vers 4-28 ity of 00:00: [place] 00 Medical Branch Pneumoniti Pneumoniti Disease Active 2020- U nivers s due to s due to 4-28 ity of inhalation inhalation 00:00[place] of food or of food or 00 Me dical vomitus vomitus Branch Clostridiu Clostridiu Disease Active 2019- U nivers m m 2-16 ity of difficile difficile 00:00: [place] diarrhea diarrhea 00 Medica l Branch Cardiomyop Cardiomyop Disease Active 2018- U nivers athy, athy, 2-16 ity of unspecifie unspecifie 00:00: [place] d type d type 00 Medical Branch E44.1 Mild E44.1 Mild Disease Active 2019- U nivers protein-ca protein-ca 1-26 it y of esperanza esperanza 00:00: [place] malnutriti malnutriti 00 Me dical on on Branch [facility] Disease Active Unive rs discharge discharge 9- ity of follow-up follow-up 00:00: [place] Chronic Chronic Disease Active Univers [...] type type Constipati Constipati Disease Active U nivers on, on, 10-31 ity of unspecifie unspecifie 00:00: [place] d d 00 Medical constipati constipati Br anch on type on type Chronic Chronic Disease Active Univers neuropathi neuropathi 10-31 it y of c pain c pain 00:00: [place] 00 Medical Branch E44.0 E44.0 Disease Active Univers Moderate Moderate 9 ity of protein protein 00:00: [place] calorie calorie 00 Medical malnutriti malnutriti Br anch on on Other Other Disease Active Univers pulmonary pulmonary 07-11 ity of embolism embolism 00:00: [place] without without 00 Medical acute cor acute cor Bran ch pulmonale, pulmonale, unspecifie unspecifie d d chronicity chronicity Septic Septic Disease Active Univers shock shock 6-03 ity of 00:00: [place] 00 Medical Branch NSTEMI NSTEMI Disease Active Univers (non-ST (non-ST 07-11 ity of elevated elevated 00:00: [place] myocardial myocardial 00 Me dical infarction infarction Br anch ) ) Acute Acute Disease Active Univers respirator respirator 5-24 it y of y failure y failure 00:00: [place] [facility] [place] E46 E46 Disease Active Univers Unspecifie Unspecifie 5-08 it y of d severe d severe 00:00: [place] protein-ca protein-ca 00 Me macy mata Branch malnutriti malnutriti on on HCAP HCAP Disease Active Univers (healthcar (healthcar 4-23 it y of e-associat e-associat 00:00: [place] ed ed 00 Medical pneumonia) pneumonia) Br anch Syncope Syncope Disease Active Univers 1-24 ity of 00:00: [place] 00 Medical Branch Shortness Shortness Disease Active Uni vers of breath of breath 1-16 ity of 00:00: [place] 00 [facility] Aspiration Aspiration Disease Active U nivers pneumonia pneumonia 1-03 ity of 00:00: [place] 00 [facility] Hypoxia Hypoxia Disease Active 2017-02 Univers 2-24 ity of 00:00: [place] [facility] RLL RLL Disease Active 2017-02 Univers pneumonia pneumonia 2-19 ity of 00:00: [place] 00 [facility] Seizures Seizures Disease Active 2017-02 Unive rs 0-09 ity of 00:00: [place] 00 [facility] Infection Infection Disease Active 2017-02 Uni vers 0-02 ity of 00:00: [place] 00 [facility] Complicate Complicate Disease Active U nivers d UTI d UTI 09-09 ity of (urinary (urinary 00:00: [place] tract tract 00 Medical infection) infection) Br anch Infection Infection Disease Active Uni vers of scalp of scalp 8 ity of 00:00: [place] 00 [facility] Hepatitis Hepatitis Disease Recurre Un desirae C virus C virus nce 09-08 ity of infection infection 00:00[place] [facility] Aphasia Aphasia Disease Recurre Univer s with TBI with TBI nce 09-08 ity of (traumatic (traumatic 00:00: [place] brain brain 00 Medical injury), injury), Branch open open Generalize Generalize Disease Active U nivers d d 8 ity of tonic-clon tonic-clon 00:00: [place] ic seizure ic seizure 00 Nd dical Branch Acute Acute Disease Active Univers cystitis cystitis 8 ity of without without 00:00: [place] hematuria hematuria 00 [facility] Branch History of History of Disease Recurre Univers trephinati trephinati nce 09-08 it y of on of on of 00:00: [place] cranium cranium 00 Medical Branch Generalize Generalize Disease Active U nivers d d 8-01 ity of tonic-clon tonic-clon 00:00: [place] ic seizure ic seizure 00 Me dical Branch Altered Altered Disease Active [facility] S/P S/P Disease Active [facility] craniotomy craniotomy 09-04 [facility] k[facility] 00:00: Medical 00 Center Altered Altered Disease Active Univers mental mental 6-04 ity of status status 00:00: [place] 00 Medical Branch Open wound Open wound Disease Active Overview : Univers of scalp, of scalp, 5-04 Formattin i ty of unspecifie unspecifie 00:00: g of this [place] d open d open 00 note Medical wound wound might be Branch type, type, different initial initial from the encounter encounter original. Added automatic ally from request for surgery [id number] Osteomyeli Osteomyeli Disease Active U nivers tis of tis of 2-04 ity of skull skull 00:00: [place] 00 Medical Branch Abscess Abscess Disease Active Univers 1-31 ity of 00:00: [place] 00 Medical Branch PEG tube PEG tube Disease Active Unive rs malfunctio malfunctio 1-28 it y of n n 00:00: [place] [facility] Scalp Scalp Disease Active Univers abscess abscess 1-28 ity of 00:00: [place] 00 Medical Branch Morbid Morbid Disease Active Univers obesity obesity 1-28 ity of with body with body 00:00: [facility] s mass index mass index 00 Me dical of 50 or of 50 or Branch higher higher PEG PEG Disease Active Univers (percutane (percutane 1-27 it y of ous ous 00:00: [place] endoscopic endoscopic 00 Me dical gastrostom gastrostom [...] Disease Active 2016-02 U nivers is, is, 007 ity of unspecifie unspecifie 00:00: [place] d type d type 00 Medical Branch Acute Acute Disease Active 2016-02 Univers respirator respirator 0 it y of y failure y failure 00:00: [place] with with 00 Medical hypoxia hypoxia Branch Subdural Subdural Disease Active Unive rs hemorrhage hemorrhage 11-03 it y of 00:00: [place] [facility] Skull Skull Disease Active Univers [...] 11-03 it y of 00:00: [place] 00 [facility] Traumatic Traumatic Disease Active Uni vers subarachno subarachno 11-03 it y of id bleed id bleed 00:00: [place] with LOC with LOC 00 Medica l of 6 hours of 6 hours Br anch to 24 to 24 hours, hours, initial initial encounter encounter S/P S/P Disease Active [facility] craniotomy craniotomy 11-03 it y of 00:00: [place] 00 [facility] Aftercare Aftercare Disease Active Uni vers following following 11-03 ity of surgery of surgery of 00:00: [place] the the Medical nervous nervous Branch system system Endotrache Endotrache Disease Active U nivers ally ally 11-03 ity of intubated intubated 00:00: [place] Ventilator Ventilator Disease Active U nivers dependent dependent 11-03 ity of 00:00: [place] 00 Medical Branch Chronic Chronic Disease Active Overview: Univ ers respirator respirator 11-02 Formattin ity of y failure y failure 00:00: g of this [place] with with 00 note Medical hypoxia hypoxia might be Branch different from the original. Added automatic ally from request for surgery [id number] Impotence Impotence Disease Recurre 2010-02 Un desirae of organic of organic nce 1-21 it y of origin origin 00:00: [place] 00 Medical Branch Allergies, Adverse Reactions, Alerts Allergy Allergy Status Severity Reaction(s) Onset Inactive Treating Comm ents Source Name Type Date Date Clinician NO KNOWN Drug Active Univers ALLERGIE Class ity of S [place] [facility] Social History Social Habit Start Date Stop Date Quantity Comments Source History of tobacco Current smoker Un iversity of use [place] [facility] History SDOH Social Unive rsity of Connections Get [place] Med ical Together Branch History SDOH Social Unive rsity of Connections [facility] Medical Branch History SDOH Social Unive rsity of Connections [place] Medical Membership Branch History SDOH Social Unive rsity of Connections [place] Medical Meetings Branch History SDOH 2022-05-25 2022-05-25 1 University o f Alcohol Frequency 00:00:00 00:00:00 [place] M edical Branch History SDOH 2022-05-25 2022-05-25 0 University o f Physical Activity 00:00:00 00:00:00 [place] M edical DPW Branch History SDOH 2022-05-25 2022-05-25 0 University o f Physical Activity 00:00:00 00:00:00 [place] M edical MPS Branch History SDOH 2022-05-25 2022-05-25 5 University o f Financial 00:00:00 00:00:00 [place] [facility] History SDOH Food 2022-05-25 2022-05-25 1 Univers ity of Worry 00:00:00 00:00:00 [place] [facility] History SDOH Food 2022-05-25 2022-05-25 1 Univers ity of Scarcity 00:00:00 00:00:00 [place] [facility] History SDOH 2022-05-25 2022-05-25 2 University o f Transport Med 00:00:00 00:00:00 [place] Medic al Branch History SDOH 2022-05-25 2022-05-25 2 University o f Transport Non-Med 00:00:00 00:00:00 [place] M edical Branch History SDOH Social 2022-05-25 2022-05-25 5 Unive rsity of Connections Phone 00:00:00 00:00:00 [place] M edical Branch History SDOH Social 2022-05-25 2022-05-25 98 Unive rsity of Connections Living 00:00:00 00:00:00 [place] [facility] History SDMI 2022-05-25 2022-05-25 2 University o f Housing Unable to 00:00:00 00:00:00 [place] Suzanna edical Pay Branch History SDMI 2022-05-25 2022-05-25 1 University o f Housing Places 00:00:00 00:00:00 [facility] [place] [facility] Lived Branch History SDMI 2022-05-25 2022-05-25 2 University o f Housing Homeless 00:00:00 00:00:00 [place] Me dical Last Year Branch History [facility] 2022-02-02 2022-02-02 0 University o f Alcohol Std Drinks 00:00:00 00:00:00 [place] [facility] History [facility] 2022-02-02 2022-02-02 1 University o f Alcohol Binge 00:00:00 00:00:00 [facility] al Branch Exposure to 2021-09-30 2021-10-10 Not sure University of SARS-CoV-2 (event) 00:00:00 03:27:00 [facility] Tobacco Comment 2018-01-31 2018-01-31 cigar smoker, Univer sity of 00:00:00 00:00:00 quit after TBI [facility] Alcohol intake 2017-09-04 2017-09-[address] [facility] 00:00:00 00:00:00 non-drinker of Medical nter alcohol (finding) Tobacco use and 2017-09-04 2017-09-[address] [facility] kes exposure 00:00:00 00:00:00 tobacco non-user [facility] Sex Assigned At [address] [facility] 00:00:00 00:00:00 [facility] Smoking Status Start Date Stop Date Source Tobacco smoking [facility] consumption unknown Ex-smoker 2018-01-31 00:00:00 2018-01-31 [place] o f [place] 00:00:00 [facility] Never smoked tobacco [facility] Medications Ordered Filled Start Stop Current Ordering Indication Dosage Frequency Signature Comments Components Source Medication Medication Date Date Medication? Clinician (SIG) Name Name aspirin 81 2022-0 Yes 81mg 81 mg Univer s mg EC 4-20 every 3 ity of tablet 13:22: (three) days. Medical Indication Branch s: Taken via Peg-tube not oral. SERTraline Yes 100mg Take 100 Un desirae 100 mg 4-20 mg by ity of tablet 13:22: mouth. Medical Branch Polyethylen Yes 17g Take 17 g U nivers e Glycol 4-20 by mouth. ity of 3350 17 13:22: [place] gram powder 00 Medical Branch whey Yes 7g Take 7 g Univers protein 4-20 through ity of isolate 21 13:22: feeding [place] gram-100 00 tube. Medical kcal/27 Branch gram Powd Lactobacill Yes 1{tbl} Take 1 Un desirae us Acidoph 4-20 tablet by ity of & Bulgar 1 13:22: mouth. million 00 Medical cell Tab Branch LORazepam Yes .5mg Take 0.5 Univ ers (ATIVAN) 4-20 mg by ity of 0.5 mg 13:22: mouth. tablet 00 Take two Medical at bed Branch time, One during the day for agiation hyoscyamine Yes .125mg Place Uni vers sulfate 4-20 0.125 mg ity of 0.125 mg 13:22: [place] the [place] sublingual 00 tongue. Medica l tablet One at bed Branch time and one at 2 am proMETHazin Yes 25mg Take 25 mg Univers e 25 mg 4-20 by mouth ity of tablet 13:22: every 4 (four) Medical hours as Branch needed for Nausea and Vomiting (N/V). aspirin 81 Yes 81mg 81 mg Univer s mg EC 4-20 every 3 ity of tablet 13:22: (three) days. Medical Indication Branch s: Taken via Peg-tube not oral. SERTraline Yes 100mg Take 100 Un desirae 100 mg 4-20 mg by ity of tablet 13:22: mouth. Medical Branch Polyethylen Yes 17g Take 17 g U nivers e Glycol 4-20 by mouth. ity of 3350 17 13:22: [place] gram powder Medical Branch whey Yes 7g Take 7 g Univers protein 4-20 through ity of isolate 21 13:22: feeding [place] gram-100 00 tube. Medical kcal/27 Branch gram Powd Lactobacill Yes 1{tbl} Take 1 Un desirae us Acidoph 4-20 tablet by ity of & Bulgar 1 13:22: mouth. Medical cell Tab Branch LORazepam Yes .5mg Take 0.5 Univ ers (ATIVAN) 4-20 mg by ity of 0.5 mg 13:22: mouth. tablet Take two Medical at bed Branch time, One during the day for agiation hyoscyamine Yes .125mg Place Uni vers sulfate 4-20 0.125 mg ity of 0.125 mg 13:22: [place] the [place] sublingual 00 tongue. Medica l tablet One at bed Branch time and one at 2 am proMETHazin Yes 25mg Take 25 mg Univers e 25 mg 4-20 by mouth ity of tablet 13:22: every 4 (four) Medical hours as Branch needed for Nausea and Vomiting (N/V). aspirin 81 Yes 81mg 81 mg Univer s mg EC 4-20 every 3 ity of tablet 13:22: (three) days. Medical Indication Branch s: Taken via Peg-tube not oral. SERTraline Yes 100mg Take 100 Un desirae 100 mg 4-20 mg by ity of tablet 13:22: mouth. Medical Branch Polyethylen Yes 17g Take 17 g U nivers e Glycol 4-20 by mouth. ity of 3350 17 13:22: [place] gram powder 00 Medical Branch whey Yes 7g Take 7 g Univers protein 4-20 through ity of isolate 21 13:22: feeding [place] gram-100 00 tube. Medical kcal/27 Branch gram Powd Lactobacill Yes 1{tbl} Take 1 Un desirae us Acidoph 4-20 tablet by ity of & Bulgar 1 13:22: mouth. Medical cell Tab Branch LORazepam Yes .5mg Take 0.5 Univ ers (ATIVAN) 4-20 mg by ity of 0.5 mg 13:22: mouth. tablet Take two Medical at bed Branch time, One during the day for agiation hyoscyamine Yes .125mg Place Uni vers sulfate 4-20 0.125 mg ity of 0.125 mg 13:22: [place] the [place] sublingual 00 tongue. Medica l tablet One at bed Branch time and one at 2 am proMETHazin Yes 25mg Take 25 mg Univers e 25 mg 4-20 by mouth ity of tablet 13:22: every 4 [place] (four) Medical hours as Branch needed for Nausea and Vomiting (N/V). aspirin 81 0 Yes 81mg 81 mg Univer s mg EC 4-20 every 3 ity of tablet 13:22: (three) days. Medical Indication Branch s: Taken via Peg-tube not oral. SERTraline Yes 100mg Take 100 Un desirae 100 mg 4-20 mg by ity of tablet 13:22: mouth. 00 Medical Branch Polyethylen Yes 17g Take 17 g U nivers e Glycol 4-20 by mouth. ity of 3350 17 13:22: [place] gram powder 00 Medical Branch whey Yes 7g Take 7 g Univers protein 4-20 through ity of isolate 21 13:22: feeding [place] gram-100 00 tube. Medical kcal/27 Branch gram Powd Lactobacill Yes 1{tbl} Take 1 Un desirae us Acidoph 4-20 tablet by ity of & Bulgar 1 13:22: mouth. [place] million 00 Medical cell Tab Branch LORazepam Yes .5mg Take 0.5 Univ ers (ATIVAN) 4-20 mg by ity of 0.5 mg 13:22: mouth. [place] tablet 00 Take two Medical at bed Branch time, One during the day for agiation hyoscyamine Yes .125mg Place Uni vers sulfate 4-20 0.125 mg ity of 0.125 mg 13:22: under the [place] sublingual 00 tongue. Medica l tablet One at bed Branch time and one at 2 am proMETHazin Yes 25mg Take 25 mg Univers e 25 mg 4-20 by mouth ity of tablet 13:22: every 4 [place] [id number] (four) Medical hours as Branch needed for Nausea and Vomiting (N/V). sennosides 0 2022- No 2{tbl} Take 2 Un desirae 8.6 mg 4-19 04-19 tablets by ity of tablet 13:36: 00:00 mouth. [place] 17 :00 Medical Branch morpHINE 2022-0 2022- No 20mg Take 20 mg Un desirae CONC 100 4-19 04-19 by mouth ity of mg/5 mL (20 13:36: 00:00 every 12 [place] mg/mL) 17 :00 (twelve) Medical concentrate hours as Bran ch d solution needed. sennosides 2022-0 Yes 8.6mg Take 1 Univ ers 8.6 mg 4-19 tablet ity of tablet 00:00: through [place] 00 enteral Medical tube in Branch the morning. morpHINE 2022-0 Yes 5224 16mg Take 0.8 Unive rs CONCENTRATE 4-19 mL by ity of 100 mg/5 mL 00:00: mouth [place] (20 mg/mL) 00 every 6 Medica l oral (six) Branch solution hours. Indication s: chronic pain sennosides 2022-0 Yes 8.6mg Take 1 Univ ers 8.6 mg 4-19 tablet ity of tablet 00:00: through [place] 00 enteral Medical tube in Branch the morning. morpHINE 2022-0 Yes 5224 16mg Take 0.8 Unive rs CONCENTRATE 4-19 mL by ity of 100 mg/5 mL 00:00: mouth [place] (20 mg/mL) 00 every 6 Medica l oral (six) Branch solution hours. Indication s: chronic pain sennosides 2022-0 Yes 8.6mg Take 1 Univ ers 8.6 mg 4-19 tablet ity of tablet 00:00: through 00 enteral Medical tube in Branch the morning. morpHINE 3-0 Yes 5224 16mg Take 0.8 Unive rs CONCENTRATE 4-19 mL by ity of 100 mg/5 mL 00:00: mouth [place] (20 mg/mL) 00 every 6 Medica l oral (six) Branch solution hours. Indication s: chronic pain sennosides 2022-0 Yes 8.6mg Take 1 Univ ers 8.6 mg 4-19 tablet ity of tablet 00:00: through 00 enteral Medical tube in Branch the morning. morpHINE 3-0 Yes 5224 16mg Take 0.8 Unive rs CONCENTRATE 4-19 mL by ity of 100 mg/5 mL 00:00: mouth [place] (20 mg/mL) 00 every 6 Medica l oral (six) Branch solution hours. Indication s: chronic pain bisacodyL 2022-0 Yes 10mg 10 mg, Univer s (DULCOLAX) 18 Rectal, ity of suppository 02:00: QHS, First [place] 10 mg 00 dose on Medical Wed [place] 05/25/22 at 2100, Until Discontinu ed, Routine lactated 2022-0 202- No 500mL at 150 Unive rs ringers IV 05-26 04-18 mL/hr, 500 it y of infusion 02:00: 02:50 mL, [place] 500 mL 00 :50 Intravenou Medical s, ONCE, 1 Branch dose, On Wed05/25/22 at 2100, Routine acetaminoph 2022-0 Yes 650mg 650 mg, Un desirae en 05-25 Enteral, ity of (TYLENOL) 23:00: Q6H, First [place] tablet 650 00 dose Medical mg (after Branch last modificati on) on Wed05/25/22 at 1800, Until Discontinu ed, Routine enoxaparin 0 Yes 40mg 40 mg, Unive rs (LOVENOX) 05-25 Subcutaneo ity of injection 22:00: [place], DAILY, [place] 40 mg 00 First dose Medical on Wed [place] 05/25/22 at 1700, Until Discontinu ed, Routine morpHINE 10 2022-0 Yes 15mg 15 mg, Univ ers mg/5 mL 05-25 Enteral, ity of oral 20:15: Q6H, First [place] solution 15 00 dose on Medic al mg [facility] 05/25/22 at 1515, Until Discontinu ed, Routine naloxone 2022-0 Yes .4mg 0.4 mg, Univer s (NARCAN) 05-25 Slow IV ity of injection 18:45: Push, PRN José Miguel as 0.4 mg 00 - SEE Medical INSTRUCTIO Branch NS, Starting on Wed05/25/22 at 1345, Until Discontinu ed, Routine, Sedation/R espiratory Depression LORazepam 2022-0 Yes 1mg 1 mg, Univers (ATIVAN) 05-25 Enteral, ity of tablet 1 mg 18:14: TIDPRN, José Miguel as 35 Starting Medical on Wed05/25/22 at 1314, Until Discontinu ed, Routine, Anxiety, Agitation lactated 2022- No 1000mL at 150 [facility] ers ringers IV 05-25-17 mL/hr, ity of infusion 17:15: 17:03 1,000 mL, José Miguel as 1,000 mL 00 :55 Intravenou Medic al s, ONCE, 1 Branch dose, On Wed05/25/22 at 1215, Routine artificial Yes 1[drp] 1 Drop, Un desirae tears(hypro 05-25 Both Eyes, it y of mellose) 14:00: DAILY, [place] (ISOPTO-TEA 00 First dose Me dical RS) 0.5 % on Wed ophthalmic 05/25/22 at drops 1 0900, Drop Until Discontinu ed, Routine gabapentin Yes 300mg 300 mg, Uni vers (NEURONTIN) 05-25 Enteral, ity of 250 mg/5 mL 13:00: TID, First [place] solution 00 dose Medical 300 mg (after Branch last modificati on) on Wed05/25/22 at 0800, Until Discontinu ed, Routine levalbutero Yes .31mg 0.31 mg, U nivers l (XOPENEX) 05-25 Inhalation it y of nebulizer 13:00: , TID, [place] solution First dose Medic al 0.31 mg on Wed05/25/22 at 0800, Until Discontinu ed, Routine lactated 2022- No 1000mL at 999 [facility] ers ringers IV 05-25 mL/hr, ity of infusion 13:00: 13:04 1,000 mL, José Miguel as 1,000 mL 00 :03 Intravenou Medic al s, ONCE, 1 Branch dose, On Wed05/25/22 at 0800, Routine ondansetron 2022- No 4mg 4 mg, Slow Univers (ZOFRAN 05-25 IV Push, ity of (PF)) 11:30: 11:37 ONCE, On [place] injection 4 00 :00 Mon Medical mg 05/25/22 at Branch 0630, For 1 dose
Do ses of ondansetro n 16 mg and above need to be administer ed via IV piggyback. For Dose >=24mg ECG monitoring is advisable.
guaiFENesin 0 Yes 100mg 100 mg, Un desirae 100 mg/5 mL 17 Enteral, ity of solution 11:00: Q8H, First José Miguel as 100 mg 00 dose Medical (after Branch last modificati on) on Wed05/25/22 at 0600, Until Discontinu ed, Routine hyoscyamine Yes .125mg 0.125 mg, Univers sulfate 05-25 Sublingual ity of (LEVSIN/SL) 10:11: , Q4HPRN, [place] sublingual 14 Starting Medic al tablet on Wed Branch 0.125 mg 05/25/22 at 0511, Until Discontinu ed, Routine, secretions aspirin 81 2022-0 Yes 81mg 81 mg Univer s mg EC 1-11 every 3 ity of tablet 16:11: (three) [place] 19 days. Medical Indication Branch s: Taken via Peg-tube not oral. SERTraline Yes 100mg Take 100 Un desirae 100 mg 1-11 mg by ity of tablet 16:11: mouth. [place] 19 Medical Branch Polyethylen 0 Yes 17g Take 17 g U nivers e Glycol 1-11 by mouth. ity of 3350 17 16:11: [place] gram powder 19 Medical Branch whey 0 Yes 7g Take 7 g Univers protein 1-11 through ity of isolate 21 16:11: feeding [place] gram-100 19 tube. Medical kcal/27 Branch gram Powd sennosides Yes 2{tbl} Take 2 Uni vers 8.6 mg 1-11 tablets by ity of tablet 16:11: mouth. [place] 19 Medical Branch Lactobacill 0 Yes 1{tbl} Take 1 Un desirae us Acidoph 1-11 tablet by ity of & Bulgar 1 16:11: mouth. [facility] 19 Medical cell Tab Branch morpHINE 0 Yes 20mg Take 20 mg Uni vers CONC 100 1-11 by mouth ity of mg/5 mL (20 16:11: every 12 [place] mg/mL) 19 (twelve) Medical concentrate hours as Bran ch d solution needed. LORazepam 0 Yes .5mg Take 0.5 Univ ers (ATIVAN) 1-11 mg by ity of 0.5 mg 16:11: mouth. [place] tablet 19 Take two Medical at bed Branch time, One during the day for agiation hyoscyamine Yes .125mg Place Uni vers sulfate 1-11 0.125 mg ity of 0.125 mg 16:11: under the [place] sublingual 19 tongue. Medica l tablet One at bed Branch time and one at 2 am proMETHazin Yes 25mg Take 25 mg Univers e 25 mg 1-11 by mouth ity of tablet 16:11: every 4 [place] [id number] (four) Medical hours as Branch needed for Nausea and Vomiting (N/V). aspirin 81 0 Yes 81mg 81 mg Univer s mg EC 1-11 every 3 ity of tablet 16:11: (three) [place] 19 days. Medical Indication Branch s: Taken via Peg-tube not oral. SERTraline Yes 100mg Take 100 Un desirae 100 mg 1-11 mg by ity of tablet 16:11: mouth. [place] 19 Medical Branch Polyethylen 0 Yes 17g Take 17 g U nivers e Glycol 1-11 by mouth. ity of 3350 17 16:11: [place] gram powder 19 Medical Branch whey 0 Yes 7g Take 7 g Univers protein 1-11 through ity of isolate 21 16:11: [facility] tube. Medical kcal/27 Branch gram Powd sennosides Yes 2{tbl} Take 2 Uni vers 8.6 mg 1-11 tablets by ity of tablet 16:11: mouth. [place] 19 Medical Branch Lactobacill 0 Yes 1{tbl} Take 1 Un desirae us Acidoph 1-11 tablet by ity of & Bulgar 1 16:11: mouth. [facility] 19 Medical cell Tab Branch morpHINE 0 Yes 20mg Take 20 mg Uni vers CONC 100 1-11 by mouth ity of mg/5 mL (20 16:11: every 12 [place] mg/mL) 19 (twelve) Medical concentrate hours as Bran ch d solution needed. LORazepam Yes .5mg Take 0.5 Univ ers (ATIVAN) 1-11 mg by ity of 0.5 mg 16:11: mouth. [place] tablet 19 Take two Medical at bed Branch time, One during the day for agiation hyoscyamine Yes .125mg Place Uni vers sulfate 1-11 0.125 mg ity of 0.125 mg 16:11: under the [place] sublingual 19 tongue. Medica l tablet One at bed Branch time and one at 2 am proMETHazin Yes 25mg Take 25 mg Univers e 25 mg 1-11 by mouth ity of tablet 16:11: every 4 [place] [id number] (four) Medical hours as Branch needed for Nausea and Vomiting (N/V). aspirin 81 Yes 81mg 81 mg Univer s mg EC 1-11 every 3 ity of tablet 16:11: (three) [place] 19 days. Medical Indication Branch s: Taken via Peg-tube not oral. SERTraline Yes 100mg Take 100 Un desirae 100 mg 1-11 mg by ity of tablet 16:11: mouth. [place] 19 Medical Branch Polyethylen Yes 17g Take 17 g U nivers e Glycol 1-11 by mouth. ity of 3350 17 16:11: [place] gram powder 19 Medical Branch whey Yes 7g Take 7 g Univers protein 1-11 through ity of isolate 21 16:11: feeding [place] gram-100 19 tube. Medical kcal/27 Branch gram Powd sennosides Yes 2{tbl} Take 2 Uni vers 8.6 mg 1-11 tablets by ity of tablet 16:11: mouth. [place] 19 Medical Branch Lactobacill Yes 1{tbl} Take 1 Un desirae us Acidoph 1-11 tablet by ity of & Bulgar 1 16:11: mouth. [facility] 19 Medical cell Tab Branch morpHINE Yes 20mg Take 20 mg Uni vers CONC 100 1-11 by mouth ity of mg/5 mL (20 16:11: every 12 [place] mg/mL) 19 (twelve) Medical concentrate hours as Bran ch d solution needed. LORazepam Yes .5mg Take 0.5 Univ ers (ATIVAN) 1-11 mg by ity of 0.5 mg 16:11: mouth. [place] tablet 19 Take two Medical at bed Branch time, One during the day for agiation hyoscyamine 2023-[address] Uni vers sulfate 1-11 0.125 mg ity of 0.125 mg 16:11: under the [place] sublingual 19 tongue. Medica l tablet One at bed Branch time and one at 2 am proMETHazin 2022-0 Yes 25mg Take 25 mg Univers e 25 mg 11 by mouth ity of tablet 16:11: every 4 [place] 19 (four) Medical hours as Branch needed for Nausea and Vomiting (N/V). sodium 2022-0 Yes [id number] 4mL Inhale 4 Un desirae chloride 7% 1-10 mL in the ity of nebulizer 00:00: morning [place] solution 00 and 4 mL Medical in the Branch evening. sodium 2022-0 Yes [id number] 4mL Inhale 4 Un [place] chloride 7% 1-10 mL in the ity of nebulizer 00:00: morning [place] solution 00 and 4 mL Medical in the Branch evening. sodium 3-0 Yes [id number] 4mL Inhale 4 Un desirae chloride 7% 1-10 mL in the ity of nebulizer 00:00: morning [place] solution 00 and 4 mL Medical in the Branch evening. sodium 2022-0 Yes [id number] 4mL Inhale 4 Un [place] chloride 7% 1-10 mL in the ity of nebulizer 00:00: morning [place] solution 00 and 4 mL Medical in the Branch evening. sodium 3-0 Yes [id number] 4mL Inhale 4 Un [place] chloride 7% 1-10 mL in the ity of nebulizer 00:00: morning [place] solution 00 and 4 mL Medical in the Branch evening. sodium 3-0 Yes [id number] 4mL Inhale 4 Un [place]ae chloride 7% 1-10 mL in the ity of nebulizer 00:00: morning [place] solution 00 and 4 mL Medical in the Branch evening. sodium 3-0 Yes [id number] 4mL Inhale 4 Un desirae chloride 7% 1-10 mL in the ity of nebulizer 00:00: morning [place] solution 00 and 4 mL Medical in the Branch evening. tobramycin 2022-0 2023- No 5mg/kg 280 mg Un desirae (NEBCIN) 09 -10 (rounded ity of 280 mg in 18:00: 18:55 from 275.5 [place] NaCl 0.9% 00 :00 mg = 5 Medical (NS) mg/kg Branch piggyback ?55.1 kg), IV Piggyback, Q24H ABX, 2 doses, First dose (after last reorder) on Wed02/16/22 at 1200, Last dose on Wed02/17/22 at 1200, Administer over 30 Minutes, 50 mL
Irma cation for aminoglyco side: Documented /suspected gram-negat vasquez infection< br>Patient has/is: None of the above
R sophei for Anti-Infec tive: Documented Infection< br>Documen jake Infection Site: Respirator y
Durat ion of Therapy: 7 days KCL 20 2022-0 2022- No 40meq 40 mEq, Univer s mEq/15 mL 02-13 Oral, ity of solution 40 13:30: 13:30 ONCE, 1 [place] mEq 00 :00 dose, On Medical Wed02/13/22 Branch at 0730, Routine magnesium 2022-2022- No 2g 2 g, IV Univ ers sulfate in 02-13 Piggyback, it y of water 2 13:30: 14:29 Administer José Miguel as gram/50 mL 00 :00 over 60 Medica l (4 %) Minutes, Branch infusion 2 ONCE, 1 g dose, On Wed02/13/22 at 0730, Routine HYDROcodone Yes 5mg 5 mg, Unive rs -acetaminop 02-11 Oral, ity of hen (HYCET) 14:46: Q4HPRN, José Miguel as 7.5-325 52 Starting Medical mg/15 mL on Wed Branch solution 5 02/11/22 at mg 0846, Until Discontinu ed, Routine, Pain (scale 4-6) KCL 20 2022-0 2022- No 40meq 40 mEq, Univer s mEq/15 mL 02-11 Oral, ity of solution 40 14:30: 14:40 ONCE, 1 [place] mEq 00 :00 dose, On Medical Wed02/11/22 Branch at 0830, Routine tobramycin 3-0 2022- No 5mg/kg 280 mg Un desirae (NEBCIN) 02-10 (rounded ity of 280 mg in 20:30: 21:57 from 275.5 [place] NaCl 0.9% 00 :00 mg = 5 Medical (NS) mg/kg Branch piggyback ?55.1 kg), IV Piggyback, Q24H ABX, 5 doses, First dose on Wed02/10/22 at 1430, Last dose on Wed02/14/22 at 1430, Administer over 30 Minutes, 50 mL
Irma cation for aminoglyco side: Documented /suspected gram-negat vasquez infection< br>Patient has/is: None of the above
R sophie for Anti-Infec tive: Documented Infection< br>Documen jake Infection Site: Respirator y
Durat ion of Therapy: 7 days linezolid 2022- No 600mg 600 mg, IV Univers in dextrose 02-10 Infusion, it y of 5% (ZYVOX) 18:30: 16:38 Q12H ABX, [place] 600 mg/300 00 :24 14 doses, Medi sydnee mL iv First dose Branch infusion on Wed 600 mg 02/10/22 at 1230, Last dose on Wed02/17/22 at 0030, 300 mL
Reas on for Anti-Infec tive: Documented Infection< br>Documen jake Infection Site: Respirator y
Durat ion of Therapy: 7 days
Re stricted use approved by: ALMA HINES, CLC ID furosemide 2022- No 20mg 20 mg, IV U nivers (LASIX) 02-10 Push, ity of injection 18:00: 18:30 ONCE, 1 [place] 20 mg 00 :00 dose, On Medical Wed02/10/22 Branch at 1200, Routine ceFEPIme 2022- No 2000mg 2,000 mg, U nivers (MAXIPIME) 02-10 IV ity of 2,000 mg in 06:45: 16:38 Piggyback, [place] NaCl 0.9% 00 :24 Q8H ABX, Medica l (NS) 50 mL 21 doses, Bran ch MINI-BAG First dose on Wed02/10/22 at 0045, Last dose on Wed02/16/22 at 1645, Administer over 4 Hours, 50 mL
Reas on for Anti-Infec tive: Documented Infection< br>Documen jake Infection Site: Respirator y
Durat ion of Therapy: 7 days tobramycin No 300mg 300 mg, Un desirae (ELISA) 300 02-10 Inhalation it y of mg/5 mL 02:00: 17:45 , Q12H, 14 José Miguel as nebulizer 00 :06 doses, Medical solution First dose Branc h 300 mg on Wed02/09/22 at 2000, Last dose on Wed02/16/22 at 0800, VLADIMIR
Re ason for Anti-Infec tive: Documented Infection< br>Documen jake Infection Site: Respirator y
Durat ion of Therapy: 7 days
Re stricted use approved by: ALMA HINES CLC ID ceFEPIme 2022- No 2000mg 2,000 mg, U nivers (MAXIPIME) 02-09 IV ity of 2,000 mg in 23:00: 00:13 Piggyback, [place] NaCl 0.9% 00 :00 ONCE, 1 Medical (NS) 50 mL dose, On Branc h MINI-BAG Wed02/09/22 at 1700, Administer over 30 Minutes, 50 mL
R sophie for Anti-Infec tive: Documented Infection< br>Documen jake Infection Site: Respirator y
Du ration of Therapy: 7 days lidocaine No 2mL 2 mL, Univer s 1% (PF) 02-09 Endotrache ity o f (XYLOCAINE) 19:15: 17:30 al, ONCE, [place] injection 2 00 :00 1 dose, On Me dical mL Wed02/09/22 Branch at 1315, Routine rocuronium No 50mg 50 mg, IV U nivers (ZEMURON) 02-09 Push, ity of injection 19:00: 17:40 ONCE, 1 [place] 50 mg 00 :00 dose, On Medical Wed02/09/22 Branch at 1300, Routine
film crew member approving Restricted medication : LYNN ABRAHAMd 2023-0 2023- No 500mL at 999 Unive rs ringers IV 02-09 mL/hr, 500 it y of infusion 19:00: 18:00 mL, [place] 500 mL 00 :00 Intravenou Medical s, ONCE, 1 Branch dose, On Wed02/09/22 at 1300, Routine FENTanyl PF 2022- No 100ug 100 mcg, Univers (SUBLIMAZE 02-09 Slow IV ity o f (PF)) 19:00: 17:15 Push, [place] injection 00 :00 ONCE, 1 Medical 100 mcg dose, On Branch Wed02/09/22 at 1300, Routine vancomycin 2022- No 1250mg 1,250 mg, Univers 1250 mg in 02-09 IV ity of NS 250 mL 18:30: 17:45 Piggyback, [place] RTU IV 00 :06 Q12H ABX, Medical Piggyback 14 doses, Branc h 1,250 mg First dose (after last modificati on) on Wed02/09/22 at 1230, Last dose on Wed02/16/22 at 0030, Administer over 90 Minutes, 250 mL
Reas on for Anti-Infec tive: Documented Infection< br>Documen jake Infection Site: Respirator y
Durat ion of Therapy: 7 days midazolam 2022- No 2mg 2 mg, IV Uni vers (VERSED) 02-09 Push, ity of injection 2 18:15: 17:00 ONCE, 1 [place] mg 00 :00 dose, On Medical Wed02/09/22 Branch at 1215, Routine midazolam 2022- No 2mg 2 mg, IV Uni vers (VERSED) 02-09 Push, ity of injection 2 18:00: 17:30 ONCE, 1 [place] mg 00 :00 dose, On Medical Wed02/09/22 Branch at 1200, Routine meropenem 2022- No 1000mg 1,000 mg, Univers (MERREM) 02-09 IV ity of 1,000 mg in 17:15: 21:02 Piggyback, [place] NaCl 0.9% 00 :00 ONCE, 1 Medical (NS[facility] Wed02/09/22 at 1115, Administer over 30 Minutes, 50 mL
R estricted use approved by: ALMA HINES CLC ID
Reas on for Anti-Infec tive: Documented Infection< br>Documen jake Infection Site: Respirator y
Durat ion of Therapy: 7 days KCL 20 2022- No 60meq 60 mEq, Univer s mEq/15 mL 02-09 Enteral, ity o f solution 60 14:00: 14:23 ONCE, 1 [place] mEq 00 :00 dose, On Medical 02/09/22 Branch at 0800, Routine polyethylen Yes 17g 17 g, Unive rs e glycol 02-08 Enteral, ity of 3350 powder 16:15: [id number], [place] 17 g 00 Starting Medical on Sun Branch 02/08/22 at 1015, Until Discontinu ed, Routine, Constipati on doxycycline 2022- No 100mg 100 mg, U nivers monohydrate 02-08 Enteral, ity of (VIBRAMYCIN 02:00: 16:20 Q12H ABX, [place] (MONO)) 25 00 :51 14 doses, Medi sydnee mg/5 mL First dose Branch oral on Sat suspension 02/07/22 100 mg at 2000, Last dose on 02/14/22 at 0800, Routine
Reason for Anti-Infec tive: Documented Infection< br>Documen jake Infection Site: Skin / Soft Tissue
Duration of Therapy: 14 days piperacilli 2022- No 3.375g 3.375 g, Univers n-tazobacta 02-08 IV ity of m (ZOSYN) 01:15: 16:20 Piggyback, [place] 3.375 g in 00 :51 Q8H ABX, Medic al NaCl 0.9% 21 doses, Branc h (NS) 50 mL First dose MINI-BAG on 02/07/22 at 1915, Last dose on 02/14/22 at 1115, Administer over 4 Hours, 50 mL
Reas on for Anti-Infec tive: Documented Infection< br>Documen jake Infection Site: Respirator y
Durat ion of Therapy: 7 days acetaminoph 2021-02 Yes 650mg 650 mg, Un desirae en Enteral, ity of (TYLENOL) 22:03: Q6HPRN, [place] 160 mg/5 mL 09 Starting Medi sydnee oral liquid on Sat Branch 650 mg 02/07/22 at 1603, Until Discontinu ed, Routine, Pain (scale 1-3), Temp > 38.5 C piperacilli 2021-02 No 3.375g 3.375 g, Univers n-tazobacta 02-07 IV ity of m (ZOSYN) 17:30: 18:31 Piggyback, [place] 3.375 g in 00 :00 ONCE, 1 Medica l NaCl 0.9% dose, On Branch (NS) 50 mL Sat MINI-BAG 02/07/22 at 1130, Administer over 30 Minutes, 50 mL
Reas on for Anti-Infec tive: Documented Infection< br>Documen jake Infection Site: Respirator y
Du ration of Therapy: 7 days KCL 20 2021-02 No 40meq 40 mEq, Univer s mEq/15 mL 02-07 Enteral, ity o f solution 40 14:15: 14:36 ONCE, 1 [place] mEq 00 :00 dose, On Medical Sat Branch 02/07/22 at 0815, Routine vancomycin 2021-02 No 1250mg 1,250 mg, Univers 1250 mg in 02-07 IV ity of NS 250 mL 05:00: 16:38 Infusion, [place] RTU IV 00 :14 Q12H ABX, Medical Piggyback First dose Bran ch 1,250 mg on Wed02/06/22 at 2300, Until Discontinu ed, Administer over 90 Minutes, 250 mL
Reas on for Anti-Infec tive: Documented Infection< br>Documen jake Infection Site: Respirator y
Durat ion of Therapy: 14 days ceFEPIme 2021-02 No 2000mg 2,000 mg, U nivers (MAXIPIME) 02-07 IV ity of 2,000 mg in 20:00: 16:38 [place], [place] NaCl 0.9% 00 :14 Q8H ABX, Medica l (NS) 50 mL 15 doses, Bran ch MINI-BAG First dose on [place] 02/05/22 at 1400, Last dose on Wed02/10/22 at 0600, Administer over 4 Hours, 50 mL
Reas on for Anti-Infec tive: Documented Infection& lt;br>Docu mented Infection Site: Respirator y
Durat ion of Therapy: 7 days albuterol 2021-02 Yes 2.5mg 2.5 mg, Univ ers (PROVENTIL) Inhalation it y of 2.5 mg /3 18:00: , Q6H, [place] mL (0.083 00 First dose Medi sydnee %) (after Branch nebulizer last solution modificati 2.5 mg on) on [place] 02/05/22 at 1200, Until Discontinu ed, Routine vancomycin 2021-02 No 1000mg 1,000 mg, Univers (VANCOCIN) 02-07 IV ity of 1,000 mg in 14:30: 04:27 [place], [place] NaCl 0.9% 00 :56 Q12H, Medical (NS) 250 mL First dose Br anch VIAL-MATE (after IV last piggyback reorder) on [place] 02/05/22 at 0830, Until Discontinu ed, Administer over 60 Minutes, 250 mL
Reas on for Anti-Infec tive: Empiric Therapy for Suspected Infection< br>Empiric Therapy Site: Blood
D uration of therapy: 5 days KCL 20 2021-02 No 40meq 40 mEq, Univer s mEq/15 mL 02-05 Enteral, ity o f solution 40 11:30: 11:38 ONCE, 1 [place] mEq 00 :00 dose, On Medical [place] Branch 02/05/22 at 0530, Routine meropenem 2021-02 No 1000mg 1,000 mg, Univers (MERREM) 02-05 IV ity of 1,000 mg in 05:15: 15:02 [place] NaCl 0.9% 00 :12 Q8H ABX, Medica l (NS) 50 mL 15 doses, Bran ch MINI-BAG First dose on Wed02/04/22 at 2315, Last dose on Wed02/09/22 at 1515, Administer over 3 Hours, 50 mL
Rest ricted use approved by: [email or web address]
R sophie for Anti-Infec tive: Empiric Therapy for Suspected Infection< br>Empiric Therapy Site: Blood
D uration of therapy: 5 days acyclovir 2021-02- No 10mg/kg 700 mg Un desirae (ZOVIRAX) 02-05 (rounded ity o f 700 mg in 03:00: 13:23 from 707 José Miguel as NaCl 0.9% 00 :05 mg = 10 Medical (NS) 100 mL mg/kg Branch IV infusion ?70.7 kg [place] weight), IV Infusion, Q8H ABX, 6 doses, First dose on Wed02/04/22 at 2100, Last dose on Wed02/06/22 at 1300, Administer over 60 Minutes, 100 mL chlorhexidi 2021-02 Yes 15mL 15 mL, Univ ers ne Oral ity of (PERIDEX) 02:00: ([place] 0.12 % 00 Spit Out), Medical mouthwash BID, First Bran ch 15 mL dose on Wed02/04/22 at 2000, Until Discontinu ed, Routine iopamidol 2021-02- No [id number] 100mL 100 mL, Univers (ISOVUE 02-04 Intravenou ity o f 370-500 mL) 00:00: 22:45 s, ONCE, 1 [place] injection 00 :00 dose, On Medica l 100 mL Wed Branch 02/04/22 at 1800, Routine vancomycin 2021-02- No 1000mg 1,000 mg, Univers (VANCOCIN) 04-07 IV ity of 1,000 mg in 21:30: 00:48 Piggyback, [place] NaCl 0.9% 00 :00 ONCE, 1 Medical (NS) 250 mL dose, On Bran ch VIAL-MATE Wed IV 02/04/22 piggyback at 1530, Administer over 60 Minutes, 250 mL
Reas on for Anti-Infec tive: Empiric Therapy for Suspected Infection< br>Empiric Therapy Site: Blood
D uration of therapy: 72 hours meropenem 2021-02- No 1000mg 1,000 mg, Univers (MERREM) 04-07 IV ity of 1,000 mg in 21:30: 23:02 [facility], [place] NaCl 0.9% 00 :46 ONCE, 1 Medical (NS) 50 mL dose, On Branc h MINI-BAG Wed02/04/22 at 1530, Administer over 30 Minutes, 50 mL
Rest ricted use approved by: [email or web address]
R sophie for Anti-Infec tive: Empiric Therapy for Suspected Infection< br>Empiric Therapy Site: Blood
D uration of therapy: 5 days rocuronium 2021-02 No 50mg 50 mg, IV U nivers (ZEMURON) 04-07 Push, ity of injection 19:15: 18:29 ONCE, 1 [place] 50 mg 00 :00 dose, On Medical Wed Branch 02/04/22 at 1315, Routine
film crew member approving Restricted medication : INTYELLOWC LC etomidate 2021-02 No 20mg 20 mg, Unive rs (AMIDATE) 04-07 Slow IV ity of injection 19:15: 18:15 Push, [place] 20 mg 00 :00 ONCE, 1 Medical dose, On Branch Wed02/04/22 at 1315, Routine propofoL IV 2021-02- No 5ug/kg/ 5-50 Un desirae infusion 04-07 01-04 min mcg/kg/min ity of 19:07: 14:47 ?59.9 kg [place] 16 :02 (1.797-17. Medical 97 mL/hr, Branch rounded to 1.8-17.97 mL/hr), IV Infusion, TITRATE, Sedation-R ASS score (0 to -1), Starting on Wed02/04/22 at 1307
In itiate infusion at 5 mcg/kg/min and titrate by 5 mcg/kg/min every 30 seconds to 10 minutes to goal sedation score. Maximum dose = 50 mcg/kg/min . If goal not maintained at maximum allowed dose, contact prescriber . &nbs p;Tubing and unused portions of vials should be discarded after 12 hours.
KCL 20 2021-02- No 40meq 40 mEq, Univer s mEq/15 mL 04-07 Oral, ity of solution 40 19:00: 18:55 ONCE, 1 [place] mEq 00 :00 dose, On Medical Wed02/04/22 at 1300, Routine fentaNYL PF 2021-02- No 25ug/h 25-200 U nivers (SUBLIMAZE) 04-07 01-04 mcg/hr ity o f STD 2,500 18:46: 14:47 (2.5-20 [place] mcg in NaCl 22 :02 mL/hr), IV Me dical 0.9% (NS) Infusion, Branc h 250 mL TITRATE, infusion CPOT/Pain RTU Scale Goals Determined by Provider, Titrate to RASS -2 to 0, Starting on Wed02/04/22 at 1246
In itiate infusion at 25 mcg/hr. Titrate by 25 mcg/hr every 1 minute to 15 minutes to identified goal pain and/or sedation scores. Maximum dose = 200 mcg/hr. If goal not maintained at maximum allowed dose, contact prescriber .
lidocaine 2021-02 No 5mL 5 mL, Univer s 1% (PF) 04-07 Subcutaneo ity o f (XYLOCAINE) 18:30: 20:30 us, ONCE, [place] injection 5 00 :00 1 dose, On Me dical mL [facility] 02/04/22 at 1230, Routine NaCl 0.9% 2021-02 Yes 10mL 10 mL, Univer s (NS) 04-07 Slow IV ity of injection 18:26: Push, PRN, [place] 10 mL 21 Starting Medical on Wed02/04/22 at 1226, Until Discontinu ed, Routine, line maintenanc e pantoprazol 2021-02 No 40mg 40 mg, Uni vers e 04-07 Slow IV ity of (PROTONIX) 18:00: 17:56 Push, [place] injection 00 :00 Q24H, 3 Medical 40 mg doses, Branch First dose on Wed02/04/22 at 1200, Last dose on Wed02/06/22 at 1200 furosemide 2021-02 No 40mg 40 mg, Univ ers (LASIX) 04-07 Slow IV ity of injection 18:00: 18:50 Push, [place] 40 mg 00 :00 ONCE, 1 Medical dose, On Branch Wed02/04/22 at 1200, Routine FENTanyl PF 2021-02- No 50ug 50 mcg, Un desirae (SUBLIMAZE 04-0704 Slow IV ity o f (PF)) 17:46: 14:47 Push, PRN [place] injection 48 :02 - SEE Medical [facility] [place] NS, Starting on Wed02/04/22 at 1146, Until Wed02/11/22 at 0847, Routine, Sedation sodium 2021-02 Yes 4mL 4 mL, Univers chloride 7% 04-07 Inhalation it y of (HYPER-NICHOLAS) 17:00: , TID, [place] nebulizer 00 First dose Medi sydnee solution 4 on Wed [place] mL 02/04/22 at 1100, Until Discontinu ed, Routine albuterol 2021-02- No 2.5mg 2.5 mg, Uni vers (PROVENTIL) 04-07 Inhalation i ty of 2.5 mg /3 17:00: 16:52 , Q3H, [place] mL (0.083 00 :21 First dose Medi sydnee %) on Wed [place] nebulizer 02/04/22 solution at 1100, 2.5 mg Until Discontinu ed, Routine iopamidol 2021-02- No [id number] 100mL 100 mL, Univers (ISOVUE 04-06 Intravenou ity o f 370-500 mL) 17:30: 16:25 s, ONCE, 1 [place] injection 00 :00 dose, On Medica l 100 mL [facility] 02/03/22 at 1130, Routine aspirin 2021-02 Yes 81mg 81 mg, Univers chewable 04-06 Enteral, ity of tablet 81 15:00: ONCE Q [place] mg 00 3DAYS, Medical First dose Branch on Wed02/03/22 at 0900, Until Discontinu ed, Routine LORazepam 2021-02 Yes 1mg 1 mg, Univers (ATIVAN) 04-06 Enteral, ity of tablet 1 mg 03:00: QHS, First [place] 00 dose on Medical Mon Branch 02/02/22 at 2100, Until Discontinu ed, Routine atorvastati 2021-02 Yes 40mg 40 mg, Univ ers n (LIPITOR) 2-27 Enteral, ity of tablet 40 03:00: QHS, First [place] 00 dose on Medical [facility] 02/02/22 at 2100, Until Discontinu ed, Routine valproic 2021-02 Yes 250mg 250 mg, Unive rs acid 04-06 Enteral, ity of (DEPAKENE) 02:00: Q12H, [place] 250 mg/5 mL 00 First dose Me dical oral on [facility] solution 02/02/22 250 mg at 2000, Until Discontinu ed, Routine morpHINE (4 2021-02- No 4mg 4 mg, Slow Univers mg/mL) 04-06 IV Push, ity of injection 4 01:11: 17:47 Q6HPRN, [place] 48 :31 Starting Medical on [facility] Center 02/02/22 at 1911, Until Wed02/04/22 at 1147, Routine, Pain (scale 7-10) enoxaparin 2021-02 Yes 40mg 40 mg, Unive rs (LOVENOX) 04-05 Subcutaneo ity of injection 23:00: [place], [place] 40 mg 00 First dose Medical on [facility] 02/02/22 at 1700, Until Discontinu ed, Routine gabapentin 2021-02 Yes 300mg 300 mg, Uni vers (NEURONTIN) 04-05 Oral, TID, it y of 250 mg/5 mL 20:00: First dose [place] solution 00 on [facility] 300 mg 02/02/22 Branch at 1400, Until Discontinu ed, Routine SERTraline 2021-02 Yes 100mg 100 mg, Uni vers (ZOLOFT) 04-05 Enteral, ity of tablet 100 15:00: DAILY, [place] mg 00 First dose Medical on [facility] 02/02/22 at 0900, Until Discontinu ed, Routine polyethylen 2021-02- No 17g 17 g, Univ ers e glycol 04-05 Enteral, ity of 3350 powder 15:00: 16:00 DAILY, [place] 17 g 00 :29 First dose Medical on [facility] 02/02/22 at 0900, Until Discontinu ed, Routine lactated 2021-02- No 1000mL at 125 Univ ers ringers IV 04-05 12-27 mL/hr, ity of infusion 14:30: 13:22 1,000 mL, [place] as 1,000 mL 00 :06 IV Medical Infusion, Branch CONTINUOUS , Starting on 02/02/22 at 0830, Until 02/03/22 at 0722, Routine ondansetron 2021-02 Yes 4mg 4 mg, Slow Univers (ZOFRAN 04-05 IV Push, ity of (PF)) 14:16: Q6HPRN, [place] injection 4 02 Starting Medi sydnee mg on Mon Branch 02/02/22 at 0816, Until Discontinu ed, Routine, Nausea and Vomiting (N/V) acetaminoph 2021-02 No 650mg 650 mg, U nivers en -02-07 Enteral, ity of (TYLENOL) 14:15: 22:03 Q6HPRN, [place] 160 mg/5 mL 55 :28 Starting Medi sydnee oral liquid on Wed Branch 650 mg 02/02/22 at 0815, Until 02/07/22 at 1603, Routine, Pain (scale 1-3) aspirin 81 0 Yes 81mg 81 mg Univer s mg EC 7-27 every 3 ity of tablet 16:27: (three) [place] 49 days. Medical Indication Branch s: Taken via Peg-tube not oral. SERTraline Yes 100mg Take 100 Un desirae 100 mg 7-27 mg by ity of tablet 16:27: mouth. [place] [address] Medical Branch Polyethylen 0 Yes 17g Take 17 g U nivers e Glycol 7-27 by mouth. ity of 3350 17 16:27: [place] gram powder 49 Medical Branch whey 0 Yes 7g Take 7 g Univers protein 7-27 through ity of isolate 21 16:27: feeding [place] gram-100 49 tube. Medical kcal/27 Branch gram Powd sennosides 0 Yes 2{tbl} Take 2 Uni vers 8.6 mg 7-27 tablets by ity of tablet 16:27: mouth. [place] [address] Medical Branch Lactobacill 0 Yes 1{tbl} Take 1 Un desirae us Acidoph 7-27 tablet by ity of & Bulgar 1 16:27: mouth. [place] [address] Medical cell Tab Branch morpHINE 0 Yes 20mg Take 20 mg Uni vers CONC 100 7-27 by mouth ity of mg/5 mL (20 16:27: every 12 [place] mg/mL) 49 (twelve) Medical concentrate hours as Bran ch d solution needed. LORazepam Yes .5mg Take 0.5 Univ ers (ATIVAN) 7-27 mg by ity of 0.5 mg 16:27: mouth. [place] tablet 49 Take two Medical at bed [...] mouth ity of tablet 16:27: every 4 [place] 49 (four) Medical hours as Branch needed for Nausea and Vomiting (N/V). peg-electro Yes [id number] 4000mL Take 4,000 Univers lyte soln 6-29 mL by ity of - 00:00: mouth [place] .74 -5.86 00 SEE-INSTRU Medi sydnee gram CTIONS. Branch solution Take as directed peg-electro Yes [id number] 4000mL Take 4,000 Univers lyte soln 6-29 mL by ity of - 00:00: mouth [place] .74 -5.86 00 SEE-INSTRU Medi sydnee gram CTIONS. Branch solution Take as directed peg-electro Yes [id number] 4000mL Take 4,000 Univers lyte soln 6-29 mL by ity of - 00:00: mouth [place] .74 -5.86 00 SEE-INSTRU Medi sydnee gram CTIONS. Branch solution Take as directed peg-electro Yes [id number] 4000mL Take 4,000 Univers lyte soln 6-29 mL by ity of - 00:00: mouth [place] .74 -5.86 00 SEE-INSTRU Medi sydnee gram CTIONS. Branch solution Take as directed peg-electro Yes [id number] 4000mL Take 4,000 Univers lyte soln 6-29 mL by ity of -6 00:00: mouth [place] .74 -5.86 00 SEE-INSTRU Medi sydnee gram CTIONS. Branch solution Take as directed peg-electro 2020-0 Yes [id number] 4000mL Take 4,000 Univers lyte soln 6-29 mL by ity of 236-.74-6 00:00: mouth [place] .74 -5.86 00 SEE-INSTRU Medi sydnee gram CTIONS. Branch solution Take as directed peg-electro 2020-0 Yes [id number] 4000mL Take 4,000 Univers lyte soln 6-29 mL by ity of .74-6 00:00: mouth [place] .74 -5.86 00 SEE-INSTRU Medi sydnee gram CTIONS. Branch solution Take as directed peg-electro 2020-0 Yes [id number] 4000mL Take 4,000 Univers lyte soln 6-29 mL by ity of .74-6 00:00: mouth [place] .74 -5.86 00 SEE-INSTRU Medi sydnee gram CTIONS. Branch solution Take as directed GABAPENTIN 2020-0 Yes [id number] GIVE 1 Univers 300 mg 3-23 CAPSULE ity of capsule 00:00: THREE [place] 00 TIMES Medical DAILY VIA Branch PEG TUBE GABAPENTIN 2020-0 Yes [id number] GIVE 1 Univers 300 mg 3-23 CAPSULE ity of capsule 00:00: THREE [place] 00 TIMES Medical DAILY VIA Branch PEG TUBE GABAPENTIN 2020-0 Yes [id number] GIVE 1 Univers 300 mg 3-23 CAPSULE ity of capsule 00:00: THREE [place] 00 TIMES Medical DAILY VIA Branch PEG TUBE GABAPENTIN 2020-0 Yes [id number] GIVE 1 Univers 300 mg 3-23 CAPSULE ity of capsule 00:00: THREE [place] 00 TIMES Medical DAILY VIA Branch PEG TUBE GABAPENTIN 2020-0 Yes [id number] GIVE 1 Univers 300 mg 3-23 CAPSULE ity of capsule 00:00: THREE [place] 00 TIMES Medical DAILY VIA Branch PEG TUBE GABAPENTIN 2020-0 Yes [id number] GIVE 1 Univers 300 mg 3-23 CAPSULE ity of capsule 00:00: THREE [place] 00 TIMES Medical DAILY VIA Branch PEG TUBE GABAPENTIN 2020-0 Yes [id number] GIVE 1 Univers 300 mg 3-23 CAPSULE ity of capsule 00:00: THREE [place] 00 TIMES Medical DAILY VIA Branch PEG TUBE GABAPENTIN 2020-0 Yes [id number] GIVE 1 Univers 300 mg 3-23 CAPSULE ity of capsule 00:00: THREE [place] 00 TIMES Medical DAILY VIA Branch PEG TUBE atorvastati 2019-02 Yes [id number] 40mg Take 2 Univers n 20 mg 2-23 tablets by ity of tablet 00:00: mouth at [place] [address] bedtime. Medical Branch atorvastati 2019-02 Yes [id number] 40mg Take 2 Univers n 20 mg 2-23 tablets by ity of tablet 00:00: mouth at [place] [address] bedtime. Medical Branch atorvastati 2019-02 Yes [id number] 40mg Take 2 Univers n 20 mg 2-23 tablets by ity of tablet 00:00: mouth at [place] [address] bedtime. Medical Branch atorvastati 2019-02 Yes [id number] 40mg Take 2 Univers n 20 mg 2-23 tablets by ity of tablet 00:00: mouth at [place] [address] bedtime. Medical Branch atorvastati 2019-02 Yes [id number] 40mg Take 2 Univers n 20 mg 2-23 tablets by ity of tablet 00:00: mouth at [place] [address] bedtime. Medical Branch atorvastati 2019-02 Yes [id number] 40mg Take 2 Univers n 20 mg 2-23 tablets by ity of tablet 00:00: mouth at [place] [address] bedtime. Medical Branch atorvastati 2019-02 Yes [id number] 40mg Take 2 Univers n 20 mg 2-23 tablets by ity of tablet 00:00: mouth at [place] [address] bedtime. Medical Branch atorvastati 2019-02 Yes [id number] 40mg Take 2 Univers n 20 mg 2-23 tablets by ity of tablet 00:00: mouth at [place] [address] bedtime. Medical Branch albuterol 2019-02 Yes [id number] 2.5mg Inhale 3 Univers 2.5 mg /3 1-11 mL every 6 ity of mL (0.083 00:00: (six) [place] %) 00 hours as Medical nebulizer needed for Bran ch solution Wheezing or Shortness of Breath. melatonin 2019-02 Yes [id number] 1{tbl} Take 1 Univers 10 mg Tab 1-11 tablet by ity o f 00:00: mouth at [place] 00 bedtime as Medical needed for Branch Insomnia. albuterol 2019-02 Yes [id number] 2.5mg Inhale 3 Univers 2.5 mg /3 1-11 mL every 6 ity of mL (0.083 00:00: (six) [place] %) 00 hours as Medical nebulizer needed for Bran ch solution Wheezing or Shortness of Breath. melatonin 2019-02 Yes [id number] 1{tbl} Take 1 Univers 10 mg Tab 1-11 tablet by ity o f 00:00: mouth at [place] 00 bedtime as Medical needed for Branch Insomnia. albuterol 2019-02 Yes [id number] 2.5mg Inhale 3 Univers 2.5 mg /3 1-11 mL every 6 ity of mL (0.083 00:00: (six) [place] %) 00 hours as Medical nebulizer needed for Bran ch solution Wheezing or Shortness of Breath. melatonin 2019-02 Yes [id number] 1{tbl} Take 1 Univers 10 mg Tab 1-11 tablet by ity o f 00:00: mouth at [place] 00 bedtime as Medical needed for Branch Insomnia. albuterol 2019-02 Yes [id number] 2.5mg Inhale 3 Univers 2.5 mg /3 1-11 mL every 6 ity of mL (0.083 00:00: (six) [place] %) 00 hours as Medical nebulizer needed for Bran ch solution Wheezing or Shortness of Breath. melatonin 2019-02 Yes [id number] 1{tbl} Take 1 Univers 10 mg Tab 1-11 tablet by ity o f 00:00: mouth at [place] 00 bedtime as Medical needed for Branch Insomnia. albuterol 2019-02 Yes [id number] 2.5mg Inhale 3 Univers 2.5 mg /3 1-11 mL every 6 ity of mL (0.083 00:00: (six) [place] %) 00 hours as Medical nebulizer needed for Bran ch solution Wheezing or Shortness of Breath. melatonin 2019-02 Yes [id number] 1{tbl} Take 1 Univers 10 mg Tab 1-11 tablet by ity o f 00:00: mouth at [place] 00 bedtime as Medical needed for Branch Insomnia. albuterol 2019-02 Yes [id number] 2.5mg Inhale 3 Univers 2.5 mg /3 1-11 mL every 6 ity of mL (0.083 00:00: (six) [place] %) 00 hours as Medical nebulizer needed for Bran ch solution Wheezing or Shortness of Breath. melatonin 2020-1 Yes [id number] 1{tbl} Take 1 Univers 10 mg Tab 1-11 tablet by ity o f 00:00: mouth at [place] 00 bedtime as Medical needed for Branch Insomnia. albuterol 2019- Yes [id number] 2.5mg Inhale 3 Univers 2.5 mg /3 1-11 mL every 6 ity of mL (0.083 00:00: (six) [place] %) 00 hours as Medical nebulizer needed for Bran ch solution Wheezing or Shortness of Breath. melatonin 2019- Yes [id number] 1{tbl} Take 1 Univers 10 mg Tab 1-11 tablet by ity o f 00:00: mouth at [place] 00 bedtime as Medical needed for Branch Insomnia. albuterol 2019- Yes [id number] 2.5mg Inhale 3 Univers 2.5 mg /3 1-11 mL every 6 ity of mL (0.083 00:00: (six) [place] %) 00 hours as Medical nebulizer needed for Bran ch solution Wheezing or Shortness of Breath. melatonin 2019- Yes [id number] 1{tbl} Take 1 Univers 10 mg Tab 1-11 tablet by ity o f 00:00: mouth at [place] 00 bedtime as Medical needed for Branch Insomnia. valproic 2020-1 Yes [id number] 250mg Take 5 mL Univers acid 250 0-24 through ity of mg/5 mL 00:00: enteral [place] solution 00 tube every Medic al 12 Branch (twelve) hours. valproic 2020-1 Yes [id number] 250mg Take 5 mL Univers acid 250 0-24 through ity of mg/5 mL 00:00: enteral [place] solution 00 tube every Medic al 12 Branch (twelve) hours. valproic 2020-1 Yes [id number] 250mg Take 5 mL Univers acid 250 0-24 through ity of mg/5 mL 00:00: enteral [place] solution 00 tube every Medic al 12 Branch (twelve) hours. valproic 2020-1 Yes [id number] 250mg Take 5 mL Univers acid 250 0-24 through ity of mg/5 mL 00:00: enteral [place] solution 00 tube every Medic al 12 Branch (twelve) hours. valproic 2020-1 Yes [id number] 250mg Take 5 mL Univers acid 250 0-24 through ity of mg/5 mL 00:00: enteral [place] solution 00 tube every Medic al 12 Branch (twelve) hours. valproic 2020-1 Yes [id number] 250mg Take 5 mL Univers acid 250 0-24 through ity of mg/5 mL 00:00: enteral [place] solution 00 tube every Medic al 12 Branch (twelve) hours. valproic 2020-1 Yes [id number] 250mg Take 5 mL Univers acid 250 0-24 through ity of mg/5 mL 00:00: enteral [place] solution 00 tube every Medic al 12 Branch (twelve) hours. valproic 2020-1 Yes [id number] 250mg Take 5 mL Univers acid 250 0-24 through ity of mg/5 mL 00:00: enteral [place] solution 00 tube every Medic al 12 Branch (twelve) hours. tiZANidine 2020-0 Yes TK 1 T PO Un desirae 4 mg tablet 6-27 BID ity of 00:00: [place] Medical Branch tiZANidine 2020-0 Yes TK 1 T PO Un desirae 4 mg tablet 6-27 BID ity of 00:00: [place] Medical Branch tiZANidine 2020-0 Yes TK 1 T PO Un desirae 4 mg tablet 6-27 BID ity of 00:00: [place] Medical Branch tiZANidine 2020-0 Yes TK 1 T PO Un desirae 4 mg tablet 6-27 BID ity of 00:00: [place] Medical Branch tiZANidine 2020-0 Yes TK 1 T PO Un desirae 4 mg tablet 6-27 BID ity of 00:00: [place] 00 Medical Branch tiZANidine 2020-0 Yes TK 1 T PO Un desirae 4 mg tablet 6-27 BID ity of 00:00: [place] Medical Branch tiZANidine 2020-0 Yes TK 1 T PO Un desirae 4 mg tablet 6-27 BID ity of 00:00: [place] Medical Branch tiZANidine 2020-0 Yes TK 1 T PO Un desirae 4 mg tablet 6-27 BID ity of 00:00: [place] 00 Medical Branch Miscellaneo 2020-0 Yes [id number] Diagnosis: [facility] 2-18 [id number] ity of Supply Misc 00:00: valerie Lift, [place] 00 use daily Medical for Branch patient transfer Miscellaneo 2020-0 Yes [id number] Diagnosis: [facility] 2-18 [id number] ity of Supply Misc 00:00: valerie Lift, [place] 00 use daily Medical for Branch patient transfer Miscellaneo 2020-0 Yes [id number] Diagnosis: [facility] 2-18 [id number] ity of Supply Misc 00:00: valerie Lift, [place] 00 use daily Medical for Branch patient transfer Miscellaneo 2020-0 Yes [id number] Diagnosis: [facility] 2-18 [id number] ity of Supply Misc 00:00: valerie Lift, [place] 00 use daily Medical for Branch patient transfer Miscellaneo 2020-0 Yes [id number] Diagnosis: [facility] 2-18 [id number] ity of Supply Misc 00:00: valerie Lift, [place] 00 use daily Medical for Branch patient transfer Miscellaneo 2020-0 Yes [id number] Diagnosis: [facility] 2-18 [id number] ity of Supply Misc 00:00: valerie Lift, [place] 00 use daily Medical for Branch patient transfer Miscellaneo 2020-0 Yes [id number] Diagnosis: [facility] 2-18 [id number] ity of Supply Misc 00:00: valerie Lift, [place] 00 use daily Medical for Branch patient transfer Miscellaneo 2020-0 Yes [id number] Diagnosis: [facility] 2-18 [id number] ity of Supply Misc 00:00: valerie Lift, [place] 00 use daily Medical for Branch patient transfer Miscellaneo 2019-0 Yes [id number] Use as [facility] 10-31 directed ity o f Supply Pads 00:00: [place] 00 Medical Branch docusate 2019-0 Yes [id number] 10mg Take 1 mL Univers (SILACE) 50 9-23 through ity o f mg/5 mL 00:00: enteral [place] solution 00 tube Medical daily. Branch Miscellaneo 2019-0 Yes [id number] Use as [facility] 10-31 directed ity o f Supply Pads 00:00: [place] 00 Medical Branch docusate 2019-0 Yes [id number] 10mg Take 1 mL Univers (SILACE) 50 9-23 through ity o f mg/5 mL 00:00: enteral [place] solution 00 tube Medical daily. Branch Miscellaneo 2019-0 Yes [id number] Use as [facility] 9-23 directed ity o f Supply Pads 00:00: [place] 00 Medical Branch docusate 2019-0 Yes [id number] 10mg Take 1 mL Univers (SILACE) 50 9-23 through ity o f mg/5 mL 00:00: enteral [place] solution 00 tube Medical daily. Branch Miscellaneo 2019-0 Yes [id number] Use as [facility] Medical 9-23 directed ity o f Supply Pads 00:00: [place] Medical Branch docusate 2019-0 Yes [id number] 10mg Take 1 mL Univers (SILACE) 50 9-23 through ity o f mg/5 mL 00:00: enteral [place] solution 00 tube Medical daily. Branch Miscellaneo 2019-0 Yes [id number] Use as [facility] Medical 9-23 directed ity o f Supply Pads 00:00: [place] Medical Branch Miscellaneo 2019-0 Yes [id number] Use as [facility] Medical 9-23 directed ity o f Supply Pads 00:00: [place] Medical Branch Miscellaneo 2019-0 Yes [id number] Use as [facility] Medical 9-23 directed ity o f Supply Pads 00:00: [place] Medical Branch Miscellaneo 2019-0 Yes [id number] Use as [facility] Medical 9-23 directed ity o f Supply Pads 00:00: [place] 00 Medical Branch docusate 2019-0 2023- No [id number] 10mg Take 1 mL Univers (SILACE) 50 9-23 04-19 through ity of mg/5 mL 00:00: 00:00 enteral [place] solution 00 :00 tube Medical daily. Branch Feeding 2019-0 Yes [id number] Use as Univ ers Tubes - 9-17 directed ity of Bags Misc 00:00: [place] Medical Branch Feeding 2019-0 Yes [id number] Use as Univ ers Tubes - 9-17 directed ity of Bags Misc 00:00: [place] Medical Branch Feeding 2019-0 Yes [id number] Use as Univ ers Tubes - 9-17 directed ity of Bags Misc 00:00: [place] 00 Medical Branch Feeding 2019-0 Yes [id number] Use as Univ ers Tubes - 9-17 directed ity of Bags Misc 00:00: [place] 00 Medical Branch Feeding 2019-0 Yes [id number] Use as Univ ers Tubes - 9-17 directed ity of Bags Misc 00:00: [place] 00 Medical Branch Feeding 2019-0 Yes [id number] Use as Univ ers Tubes - 9-17 directed ity of Bags Misc 00:00: [place] 00 Medical Branch Feeding Yes [id number] Use as Univ ers Tubes - 9-17 directed ity of Bags Misc 00:00: [place] 00 Medical Branch Feeding Yes [id number] Use as Univ ers Tubes - 9-17 directed ity of Bags Misc 00:00: [place] 00 Medical Branch HYDROcodone Yes [id number] 1{tbl} Take 1 Univers -acetaminop 8-08 tablet by ity of hen 10-325 00:00: mouth [place] mg tablet 00 every 6 Medical (six) Branch hours as needed for Pain (scale 4-6). HYDROcodone Yes [id number] 1{tbl} Take 1 Univers -acetaminop 8-08 tablet by ity of hen 10-325 00:00: mouth [place] mg tablet 00 every 6 Medical (six) Branch hours as needed for Pain (scale 4-6). HYDROcodone Yes [id number] 1{tbl} Take 1 Univers -acetaminop 8-08 tablet by ity of hen 10-325 00:00: mouth [place] mg tablet 00 every 6 Medical (six) Branch hours as needed for Pain (scale 4-6). HYDROcodone Yes [id number] 1{tbl} Take 1 Univers -acetaminop 8-08 tablet by ity of hen 10-325 00:00: mouth [place] mg tablet 00 every 6 Medical (six) Branch hours as needed for Pain (scale 4-6). HYDROcodone 2022- No [id number] 1{tbl} Take 1 Univers -acetaminop 8-08 04-19 tablet by it y of hen 10-325 00:00: 00:00 mouth [place] mg tablet 00 :00 every 6 Medical (six) Branch hours as needed for Pain (scale 4-6). acetaminoph 2017-02 Yes 320mg Take 10 mL Univers en 160 mg/5 1-19 by mouth ity of mL elixir 00:00: every 6 [place] 00 (six) Medical hours as Branch needed for Fever or Pain. Via feeding tube acetaminoph 2017-02 Yes 320mg Take 10 mL Univers en 160 mg/5 1-19 by mouth ity of mL elixir 00:00: every 6 [place] 00 (six) Medical hours as Branch needed for Fever or Pain. Via feeding tube acetaminoph 2017-02 Yes 320mg Take 10 mL Univers en 160 mg/5 1-19 by mouth ity of mL elixir 00:00: every 6 [place] 00 (six) Medical hours as Branch needed for Fever or Pain. Via feeding tube acetaminoph 2017-02 Yes 320mg Take 10 mL Univers en 160 mg/5 1-19 by mouth ity of mL elixir 00:00: every 6 [place] 00 (six) Medical hours as Branch needed for Fever or Pain. Via feeding tube acetaminoph 2017-02 Yes 320mg Take 10 mL Univers en 160 mg/5 1-19 by mouth ity of mL elixir 00:00: every 6 [place] 00 (six) Medical hours as Branch needed for Fever or Pain. Via feeding tube acetaminoph 2017-02 Yes 320mg Take 10 mL Univers en 160 mg/5 1-19 by mouth ity of mL elixir 00:00: every 6 [place] 00 (six) Medical hours as Branch needed for Fever or Pain. Via feeding tube acetaminoph 2017-02 Yes 320mg Take 10 mL Univers en 160 mg/5 1-19 by mouth ity of mL elixir 00:00: every 6 [place] 00 (six) Medical hours as Branch needed for Fever or Pain. Via feeding tube acetaminoph 2017-02 Yes 320mg Take 10 mL Univers en 160 mg/5 1-19 by mouth ity of mL elixir 00:00: every 6 [place] 00 (six) Medical hours as Branch needed for Fever or Pain. Via feeding tube bacitracin Yes QD Apply [facility] 7-29 topically [facility] unit/gram 19:59: daily. Medica l ointment 13 [place] trypsin-bal Yes Apply [facility]-castor 7-29 topically [facility] oil 19:59: 2 (two) Medical [id number] 13 times [place] unit-mg-mg/ daily as gram Oint needed. bisacodyl Yes 10mg Place [address] [facility] (FLEET) 10 7-29 mg [facility] mg/30 mL 19:59: rectally Medic al Enem enema 13 once. [place] acetaminoph Yes 650mg Take [address] en 7-29 mg by [facility] (TYLENOL) 19:59: mouth Medical 325 MG 13 every 4 Center tablet (four) hours as needed for Pain. enoxaparin 2018-0 Yes 70mg Inject [address] [facility] [...] tablet 13 (two) Center times daily. loratadine 2017-0 Yes 10mg QD Take [address] (CLARITIN) 7-29 by mouth [facility] 10 mg 19:59: daily. Medical tablet 13 [place] melatonin 3 2018-0 Yes 3mg Take [address] mg Tab 7-29 by mouth [facility] tablet 19:59: every Medical 13 night as Center needed. mirtazapine 2018-0 Yes 15mg QD Take [address] (REMERON) 7-29 by mouth [facility] 15 MG 19:59: nightly. Medical tablet 13 [place] ondansetron 2018-0 Yes 4mg Take [address] (ZOFRAN-ODT 7-29 by mouth Luke s ) 4 MG 19:59: every 8 Medical disintegrat 13 (eight) Cente r ing tablet hours as needed for Nausea. pantoprazol 2018-0 Yes 40mg QD Take [address] e 7-29 by mouth [facility] (PROTONIX) 19:59: daily. Medic al 40 MG 13 Center tablet polyethylen 2018-0 Yes 17g QD Take [address] e glycol 7-29 by mouth [facility] (GLYCOLAX) 19:59: daily. Medic al 17 gram 13 [place] packet Lactobacill Yes 1{tbl} QD Take [address] us 7-29 tablet by [facility] acidoph-L.b 19:59: mouth Medic al ulgar 13 daily. [place] (FLORANEX) 1 million cell Tab per tablet senna Yes 2{tbl} QD Take [address] [facility] (SENOKOT) 7-29 tablets by Luke s 8.6 mg 19:59: mouth Medical tablet 13 nightly. [place] sertraline Yes 100mg QD Take [address] (ZOLOFT) 7-29 mg by [facility] 100 MG 19:59: mouth Medical tablet 13 daily. [place] whey Yes 7g Q.[id number] 7 g by PEG [facility] protein 7-29 [id number] Tube route [facility] isolate 21 19:59: 3D 3 (three) Me dical gram-100 13 times [place] kcal/27 daily. gram Powd atorvastati Yes 40mg QD Take [address] n (LIPITOR) 7-29 by mouth Luke s 40 MG 19:59: daily. Medical tablet 13 [place] atorvastati Yes 40mg QD Take [address] [facility] (LIPITOR) 7-29 by mouth Luke [facility] 40 MG 19:59: daily. Medical tablet 13 [place] bacitracin Yes QD Apply [facility] 500 7-29 topically [facility] unit/gram 19:59: daily. Medica l ointment 13 [place] trypsin-bal Yes Apply [facility]-castor 7- topically [facility] oil 19:59: 2 (two) Medical [id number] 13 times [place] unit-mg-mg/ daily as gram Oint needed. bisacodyl Yes 10mg Place [address] [facility] (FLEET) 10 7-29 mg [facility] mg/30 mL 19:59: rectally Medic al Enem enema 13 once. [place] enoxaparin Yes 70mg Inject 70 [facility] [...] St -acetaminop 7-29 tablet by Naomi cipriano juan (NORCO 19:59: mouth Medica l 5-325) 13 every 8 Center 5-325 mg (eight) per tablet hours as needed for Pain. levETIRAcet 2018-0 Yes 500mg Q.5D Take [address] am (KEPPRA) 7-29 mg by [facility] 500 MG 19:59: mouth 2 Medical tablet 13 (two) Center times daily. loratadine 0 Yes 10mg QD Take [address] (CLARITIN) 7-29 by mouth [facility] 10 mg 19:59: daily. Medical tablet 13 [place] melatonin 3 0 Yes 3mg Take [address] mg Tab 7-29 by mouth [facility] tablet 19:59: every Medical 13 night as Center needed. mirtazapine 0 Yes 15mg QD Take [address] (REMERON) 7-29 by mouth [facility] 15 MG 19:59: nightly. Medical tablet 13 [place] ondansetron 0 Yes 4mg Take 4 mg [...] 19:59: daily. Medic al 17 gram 13 [place] packet senna 2018-0 Yes 2{tbl} QD Take [address] (SENOKOT) 7-29 tablets by Luke s 8.6 mg 19:59: mouth Medical tablet 13 nightly. [place] sertraline 0 Yes 100mg QD Take [address] (ZOLOFT) 7-29 mg by [facility] 100 MG 19:59: mouth Medical tablet 13 daily. [place] whey 2018-0 Yes 7g Q.[id number] 7 g by PEG [facility] protein 7-29 [id number] Tube route kes isolate 21 19:59: 3D 3 (three) Me dical gram-100 13 times Center kcal/27 daily. gram Powd acetaminoph 0 Yes 650mg Take [address] en 7-29 mg by [facility] (TYLENOL) 19:59: mouth Medical 325 MG 13 every 4 Center tablet (four) hours as needed for Pain. Lactobacill Yes 1{tbl} QD Take [address] us 7-29 tablet by [employer] acidoph-L.b 19:59: mouth Medic al ulgar 13 daily. Center (FLORANEX) 1 million cell Tab per tablet bacitracin 0 Yes QD Apply [facility] 500 7-29 topically [facility] unit/gram 19:59: daily. Medica l ointment 13 Center trypsin-bal Yes Apply [facility]-castor 7-29 topically [facility] oil 19:59: 2 (two) Medical [id number] 13 times Center unit-mg-mg/ daily as gram Oint needed. bisacodyl Yes 10mg Place [address] [facility] (FLEET) 10 7-29 mg [facility] mg/30 mL 19:59: rectally Medic al Enem enema 13 once. Center enoxaparin 0 Yes 70mg Inject [address] (LOVENOX) 7-29 mg [facility] 100 mg/mL 19:59: subcutaneo Me dical Syrg 13 usly every Center 12 (twelve) hours. fluticasone 0 Yes 1{puff} Inhale [address] (FLOVENT 7-29 puff by [facility] DISKUS) 50 19:59: mouth via Me dical mcg/actuati 13 inhaler Cente r on diskus daily as inhaler needed. HYDROcodone 0 Yes 1{tbl} Take [address] -acetaminop 7-29 tablet by Naomi martinez (NORCO 19:59: mouth Medica l 5-325) 13 every 8 Center 5-325 mg (eight) per tablet hours as needed for Pain. levETIRAcet 0 Yes 500mg Q.5D Take [address] am (KEPPRA) 7-29 mg by [facility] 500 MG 19:59: mouth 2 Medical tablet 13 (two) Center times daily. loratadine 20180 Yes 10mg QD Take [address] (CLARITIN) 7-29 by mouth [facility] 10 mg 19:59: daily. Medical tablet 13 [place] melatonin 3 2018-0 Yes 3mg Take [address] mg Tab 7-29 by mouth [facility] tablet 19:59: every Medical 13 night as Center needed. mirtazapine 20180 Yes 15mg QD Take [address] [facility] (REMERON) 7-29 by mouth [facility] 15 MG 19:59: nightly. Medical tablet 13 [place] ondansetron 0 Yes 4mg Take 4 mg [...] al 17 gram 13 Center packet senna 0 Yes 2{tbl} QD Take [address] [facility] (SENOKOT) 7-29 tablets by Luke [facility] 8.6 mg 19:59: mouth Medical tablet 13 nightly. [place] sertraline 0 Yes 100mg QD Take [address] (ZOLOFT) 7-29 mg by [facility] 100 MG 19:59: mouth Medical tablet 13 daily. [place] whey 0 Yes 7g Q.[id number] 7 g by PEG [facility] protein 7-29 [id number] Tube route [facility] isolate 21 19:59: 3D 3 (three) Me dical gram-100 13 times Center kcal/27 daily. gram Powd acetaminoph 2017-0 Yes 650mg Take [address] en 7-29 mg by [facility] (TYLENOL) 19:59: mouth Medical 325 MG 13 every 4 Center tablet (four) hours as needed for Pain. Lactobacill 2017-0 Yes 1{tbl} QD Take [address] us 7-29 tablet by [facility] acidoph-L.b 19:59: mouth Medic al ulgar 13 daily. Center (FLORANEX) 1 million cell Tab per tablet atorvastati Yes 40mg QD Take [address] [facility] n (LIPITOR) 7-29 by mouth [facility] 40 MG 19:59: daily. Medical tablet 13 [place] bacitracin 0 Yes QD Apply [facility] 500 7-29 topically [facility] unit/gram 19:59: daily. Medica l ointment 13 [place] trypsin-bal Yes Apply [facility] drake-castor 7-29 topically [facility] oil 19:59: 2 (two) Medical [id number] 13 times Center unit-mg-mg/ daily as gram Oint needed. bisacodyl Yes 10mg Place [address] [facility] (FLEET) 10 7-29 mg [facility] mg/30 mL 19:59: rectally Medic al Enem enema 13 once. [place] enoxaparin Yes 70mg Inject 70 [facility] [...] 10 mg 19:59: daily. Medical tablet 13 [place] melatonin 3 0 Yes 3mg Take [address] mg Tab 7-29 by mouth [facility] tablet 19:59: every Medical 13 night as Center needed. mirtazapine Yes 15mg QD Take [address] [facility] (REMERON) 7-29 by mouth [facility] 15 MG 19:59: nightly. Medical tablet 13 [place] ondansetron Yes 4mg Take 4 mg C [...] 19:59: daily. Medic al 17 gram 13 [place] packet senna Yes 2{tbl} QD Take [address] [facility] [address] (SENOKOT) 7-29 tablets by Luke [facility] 8.6 mg 19:59: mouth Medical tablet 13 nightly. [place] sertraline Yes 100mg QD Take [address] (ZOLOFT) 7-29 mg by [facility] 100 MG 19:59: mouth Medical tablet 13 daily. [place] whey Yes 7g Q.[id number] 7 g by PEG [facility] protein 7-29 [id number] Tube route [facility] isolate 21 19:59: 3D 3 (three) Me dical gram-100 13 times Center kcal/27 daily. gram Powd acetaminoph Yes 650mg Take [address] en 7-29 mg by [facility] (TYLENOL) 19:59: mouth Medical 325 MG 13 every 4 [place] tablet (four) hours as needed for Pain. Lactobacill Yes 1{tbl} QD Take [address] us 7-29 tablet by [facility] acidoph-L.b 19:59: mouth Medic al ulgar 13 daily. [place] (FLORANEX) 1 million cell Tab per tablet atorvastati 0 Yes 40mg QD Take [address] [facility] n (LIPITOR) 7-29 by mouth [facility] 40 MG 19:59: daily. Medical tablet 13 [place] bacitracin 0 Yes QD Apply [facility] 500 7-29 topically [facility] unit/gram 19:59: daily. Medica l ointment 13 Center trypsin-bal Yes Apply [facility] drake-castor 7-29 topically [facility] oil 19:59: 2 (two) Medical 03-05-248 13 times Center unit-mg-mg/ daily as gram Oint needed. bisacodyl Yes 10mg Place [address] [facility] (FLEET) 10 7-29 mg [facility] mg/30 mL 19:59: rectally Medic al Enem enema 13 once. [place] enoxaparin Yes 70mg Inject [address] (LOVENOX) 7-29 mg [facility] 100 mg/mL 19:59: subcutaneo Me dical Syrg 13 usly every Center 12 (twelve) hours. fluticasone Yes 1{puff} Inhale [address] [facility] [address] (FLOVENT 7-29 puff by [facility] DISKUS) 50 19:59: mouth via Nd dical mcg/actuati 13 inhaler Cente r on [...] 10 mg 19:59: daily. Medical tablet 13 [place] melatonin 3 0 Yes 3mg Take [address] mg Tab 7-29 by mouth [facility] tablet 19:59: every Medical 13 night as Center needed. mirtazapine 0 Yes 15mg QD Take [address] [facility] [address] (REMERON) 7-29 by mouth [facility] 15 MG 19:59: nightly. Medical tablet 13 [place] ondansetron 0 Yes 4mg Take 4 mg [...] 19:59: daily. Medic al 17 gram 13 [place] packet senna 0 Yes 2{tbl} QD Take [address] [facility] [address] (SENOKOT) 7-29 tablets by Luke [facility] 8.6 mg 19:59: mouth Medical tablet 13 nightly. [place] sertraline Yes 100mg QD Take [address] (ZOLOFT) 7-29 mg by [facility] 100 MG 19:59: mouth Medical tablet 13 daily. [place] whey Yes 7g Q.[id number] 7 g by PEG [facility] protein 7-29 [id number] Tube route [facility] isolate 21 19:59: 3D [...] 40 MG 19:59: daily. Medical tablet 13 [place] artificial 0 Yes 1[drp] Place 1 Un desirae tears,hypro 6-15 Drop in ity o f [place], [place] 0.5 % 00 2 (two) Medical ophthalmic times Branch drops daily as needed for Dry eyes. artificial 0 Yes 1[drp] Place 1 Un desirae tears,hypro 6-15 Drop in ity o f [place], 00:[place]: [place] 0.[place] % 00 2 (two) Medical ophthalmic times Branch drops daily as needed for Dry eyes. artificial Yes 1[drp] Place 1 Un desirae tears,hypro 6-15 Drop in ity o [place], 00:[place]: [place] 0.[place] % 00 2 (two) Medical ophthalmic times Branch drops daily as needed for Dry eyes. artificial Yes 1[drp] Place 1 Un desirae tears,hypro 6-15 Drop in ity o [place], 00:[place]: [place] 0.[place] % 00 2 (two) Medical ophthalmic times Branch drops daily as needed for Dry eyes. artificial Yes 1[drp] Place 1 Un desirae tears,hypro 6-15 Drop in ity o f [place], 00:[place]: [place] 0.[place] % 00 2 (two) Medical ophthalmic times Branch drops daily as needed for Dry eyes. artificial Yes 1[drp] Place 1 Un desirae tears,hypro 6-15 Drop in ity o f [place], 00:[place]: [place] 0.[place] % 00 2 (two) Medical ophthalmic times Branch drops daily as needed for Dry eyes. artificial Yes 1[drp] Place 1 Un desirae tears,hypro 6-15 Drop in ity o f [place], 00:[place]: [place] 0.[place] % 00 2 (two) Medical ophthalmic times Branch drops daily as needed for Dry eyes. artificial Yes 1[drp] Place 1 Un desirae tears,hypro 6-15 Drop in ity o f [place], 00:00: [place] 0.5 % 00 2 (two) Medical ophthalmic times Branch drops daily as needed for Dry eyes. Immunizations Ordered Filled Immunization Date Status Comments [facility] e Immunization Name Name SARS-COV-2 COVID-19 2020-04-09 Completed Unive rsity of PFIZER VACCINE 00:00:00 [facility] SARS-COV-2 COVID-19 2020-04-09 Completed Unive rsity of PFIZER VACCINE 00:00:00 [facility] SARS-COV-2 COVID-19 2020-04-09 Completed Unive rsity of PFIZER VACCINE 00:00:00 [facility] SARS-COV-2 COVID-19 2020-04-09 Completed Unive rsity of PFIZER VACCINE 00:00:00 [facility] SARS-COV-2 COVID-19 2020-04-09 Completed Unive rsity of PFIZER VACCINE 00:00:00 [facility] SARS-COV-2 COVID-19 2020-04-09 Completed Unive rsity of PFIZER VACCINE 00:00:00 [facility] SARS-COV-2 COVID-19 2020-04-09 Completed Unive rsity of PFIZER VACCINE 00:00:00 [facility] SARS-COV-2 COVID-19 2020-04-09 Completed Unive rsity of PFIZER VACCINE 00:00:00 [facility] SARS-COV-2 COVID-19 2020-03-19 Completed Unive rsity of PFIZER VACCINE 00:00:00 [facility] SARS-COV-2 COVID-19 2020-03-19 Completed Unive rsity of PFIZER VACCINE 00:00:00 [facility] SARS-COV-2 COVID-19 2020-03-19 Completed Unive rsity of PFIZER VACCINE 00:00:00 [facility] SARS-COV-2 COVID-19 2020-03-19 Completed Unive rsity of PFIZER VACCINE 00:00:00 [facility] SARS-COV-2 COVID-19 2020-03-19 Completed Unive rsity of PFIZER VACCINE 00:00:00 [facility] SARS-COV-2 COVID-19 2020-03-19 Completed Unive rsity of PFIZER VACCINE 00:00:00 [facility] SARS-COV-2 COVID-19 2020-03-19 Completed Unive rsity of PFIZER VACCINE 00:00:00 [facility] SARS-COV-2 COVID-19 2020-03-19 Completed Unive rsity of PFIZER VACCINE 00:00:00 [facility] Td 2016-11-02 Completed University of 00:00:00 [facility] TD, NOS 2016-11-02 Completed University of 00:00:00 [facility] TD, NOS 2016-11-02 Completed University of 00:00:00 [facility] TD, NOS 2016-11-02 Completed University of 00:00:00 [facility] TD, NOS 2016-11-02 Completed University of 00:00:00 [facility] TD, NOS 2016-11-02 Completed University of 00:00:00 [facility] TD, NOS 2016-11-02 Completed University 00:00:00 [facility] TD, NOS 2016-11-02 Completed University 00:00:00 [facility] Twinrix (hep a/hep 2015-05-31 Completed Univer sity of b) 00:00:00 [facility] Twinrix (hep a/hep 2015-05-31 Completed Univer sity of b) 00:00:00 [facility] Twinrix (hep a/hep 2015-05-31 Completed Univer sity of b) 00:00:00 [facility] Twinrix (hep a/hep 2015-05-31 Completed Univer sity of b) 00:00:00 [facility] Twinrix (hep a/hep 2015-05-31 Completed Univer sity of b) 00:00:00 [facility] Twinrix (hep a/hep 2015-05-31 Completed Univer sity of b) 00:00:00 [facility] Twinrix (hep a/hep 2015-05-31 Completed Univer sity of b) 00:00:00 [facility] Twinrix (hep a/hep 2015-05-31 Completed Univer sity of b) 00:00:00 [facility] Twinrix (hep a/hep 2014-08-27 Completed Univer sity of b) 00:00:00 [facility] Twinrix (hep a/hep 2014-08-27 Completed Univer sity of b) 00:00:00 [facility] Twinrix (hep a/hep 2014-08-27 Completed Univer sity of b) 00:00:00 [facility] Twinrix (hep a/hep 2014-08-27 Completed Univer sity of b) 00:00:00 [facility] Twinrix (hep a/hep 2014-08-27 Completed Univer sity of b) 00:00:00 [facility] Twinrix (hep a/hep 2014-08-27 Completed Univer sity of b) 00:00:00 [facility] Twinrix (hep a/hep 2014-08-27 Completed Univer sity of b) 00:00:00 [facility] Twinrix (hep a/hep 2014-08-27 Completed Univer sity of b) 00:00:00 [facility] Pneumococcal 2014-07-23 Completed University o f Polysaccharide, 00:00:00 [place] Med ical PPSV23 (PNEUMOVAX) Branch Twinrix (hep a/hep 2014-07-23 Completed Univer sity of b) 00:00:00 [facility] Pneumococcal 2014-07-23 Completed University o f Polysaccharide, 00:00:00 [place] [facility] ical PPSV23 (PNEUMOVAX) Branch Twinrix (hep a/hep 2014-07-23 Completed Univer sity of b) 00:00:00 [facility] Pneumococcal 2014-07-23 Completed University o f Polysaccharide, 00:00:00 [place] [facility] ical PPSV23 (PNEUMOVAX) Branch Twinrix (hep a/hep 2014-07-23 Completed Univer sity of b) 00:00:00 [facility] Pneumococcal 2014-07-23 Completed University o f Polysaccharide, 00:00:00 [place] [facility] ical PPSV23 (PNEUMOVAX) Branch Twinrix (hep a/hep 2014-07-23 Completed Univer sity of b) 00:00:00 [facility] Pneumococcal 2014-07-23 Completed University o f Polysaccharide, 00:00:00 [place] [facility] ical PPSV23 (PNEUMOVAX) Branch Twinrix (hep a/hep 2014-07-23 Completed Univer sity of b) 00:00:00 [facility] Pneumococcal 2014-07-23 Completed University o f Polysaccharide, 00:00:00 [place] [facility] ical PPSV23 (PNEUMOVAX) Branch Twinrix (hep a/hep 2014-07-23 Completed Univer sity of b) 00:00:00 [facility] Pneumococcal 2014-07-23 Completed University o f Polysaccharide, 00:00:00 [place] [facility] ical PPSV23 (PNEUMOVAX) Branch Twinrix (hep a/hep 2014-07-23 Completed Univer sity of b) 00:00:00 [facility] Pneumococcal 2014-07-23 Completed University o f Polysaccharide, 00:00:00 [place] [facility] ical PPSV23 (PNEUMOVAX) Branch Twinrix (hep a/hep 2014-07-23 Completed Univer sity of b) 00:00:00 [facility] TDAP 2014-04-13 Completed University of 00:00:00 [facility] TDAP 2014-04-13 Completed University of 00:00:00 [place] [facility] TDAP 2014-04-13 Completed University of 00:00:00 [place] [facility] TDAP 2014-04-13 Completed University of 00:00:00 [place] [facility] TDAP 2014-04-13 Completed University of 00:00:00 [place] [facility] TDAP 2014-04-13 Completed University of 00:00:00 [place] [facility] TDAP 2014-04-13 Completed University of 00:00:00 [place] [facility] TDAP 2014-04-13 Completed University of 00:00:00 [facility] Vital Signs Vital Name Observation Time Observation Value Comments Source Systolic blood 2022-05-28 16:00:00 137 mm[Hg] Univer sity of pressure [facility] Diastolic blood 2022-05-28 16:00:00 83 mm[Hg] Unive rsity of [facility] Heart rate 2022-05-28 16:00:00 74 /min [facility] Body temperature 2022-05-28 16:00:00 37.28 Rita [facility] Oxygen saturation in 2022-05-28 16:00:00 95 /min [facility] blood by [facility] Pulse oximetry Branch Respiratory rate 2022-05-28 13:15:00 16 /min [facility] Body weight 2022-05-26 00:47:00 71.5 kg per bed [facility] BMI 2022-05-26 00:47:00 23.28 kg/m2 [facility] Body height 2022-05-25 09:00:00 175.3 cm [facility] Systolic blood 2022 18:37:00 113 mm[Hg] Univer sity of pressure [facility] Diastolic blood 2022 18:37:00 80 mm[Hg] Unive rsity of pressure [facility] Heart rate 2022 18:37:00 114 /min [facility] Body temperature 2022 18:37:00 36.89 Rita [facility] 2022 18:37:00 16 /min [facility] Oxygen saturation in 2022 18:37:00 95 /min [facility] Arterial blood by [facility] Pulse oximetry Branch Body weight 2022-02-12 14:15:00 55.1 kg [facility] BMI 2022-02-12 14:15:00 17.93 kg/m2 [facility] Body height 2022-02-02 13:03:00 175.3 cm [facility] Procedures Procedure Date / Time Performing Clinician Source Performed EXTERNAL PROVIDER RECORDS 2022-06-10 05:01:00 Doctor Chelsie, [facility] Name Medical [place] AUTHORIZATION FOR RELEASE 2022-06-02 05:01:00 Doctor Unassigned, [facility] Name Medical [place] MAGNESIUM 2022-05-26 11:02:00 Stan Haile [facility] BASIC METABOLIC PANEL 2022-05-26 11:02:00 Stan Haile [facility] (NA, K, CL, CO2, GLUCOSE, Medica l Branch BUN, CREATININE, CA) LACTIC ACID WHOLE BLOOD 2022-05-26 11:02:00 Rosi Morales [facility] CBC WITH DIFF 2022-05-26 11:01:00 Stan Haile [facility] LACTIC ACID WHOLE BLOOD 2022-05-26 01:00:00 Stan Haile [facility] BASIC METABOLIC PANEL 2022-05-26 00:59:00 Stan Haile [facility] (NA, K, CL, CO2, GLUCOSE, Medica l Branch BUN, CREATININE, CA) HB ECG ROUTINE & RHYTHM 2022-05-25 16:08:[address] [facility] LACTIC ACID WHOLE BLOOD 2022-05-25 15:57:00 Stan Haile [facility] EXTRA TUBE LT. GREEN 2022-05-25 15:57:00 Aaliyah Sanchez [facility] CT THORAX W CONTRAST 2022-05-25 14:37:54 Vy Stallings [facility] CT ABDOMEN PELVIS W 2022-05-25 14:37:33 Vy Stallings [facility] CONTRAST [facility] BLOOD CULTURE SCREEN 2022-05-25 10:29:00 Vy Stallings [facility] BLOOD CULTURE SCREEN 2022-05-25 10:23:00 Vy Stallings [facility] LIPASE 2022-05-25 10:23:00 Stan Haile [facility] C-REACTIVE PROTEIN 2022-05-25 10:23:00 Chandrakant [facility] THYROID STIMULATING 2022-05-25 10:23:00 Chandrakant [facility] HORMONE [facility] HEPATIC FUNCTION PANEL 2022-05-25 10:23:00 Chandrakant [facility] ([id number]) (ALB,T.PRO,BILI [facility] T,BU/BC,ALT,AST,ALK PHOS) BASIC METABOLIC PANEL 2022-05-25 10:23:00 Chandrakant [facility] (NA, K, CL, CO2, GLUCOSE, Medica l Branch BUN, CREATININE, CA) SEDIMENTATION RATE 2022-05-25 10:23:00 Chandrakant [facility] CBC WITH DIFF 2022-05-25 10:23:00 Chandrakant [facility] LACTIC ACID WHOLE BLOOD 2022-05-25 10:23:00 Chandrakant [facility] PROCALCITONIN 2022-05-25 10:23:00 Chandrakant [facility] GALV ONLY - INFLUENZA A B 2022-05-25 10:12:00 Vy Stallings [facility] RSV PCR [facility] MRSA / MSSA SCREEN BY 2022-05-25 10:12:00 Chandrakant [facility] PCR, NARES [facility] COVID-19 (ID NOW RAPID 2022-05-25 10:12:00 Chandrakant, [facility] TESTING) Medical Branch LAB ONLY COVID 2022-05-25 10:12:00 Chandrakant [facility] INTERPRETATION [facility] URINALYSIS 2022-05-25 09:34:00 Chandrakant [facility] TEQUILA AURIS 2022-05-25 09:34:00 Chandrakant [facility] SURVEILLANCE BY SUZANNE Medical Marlon (INFECTION CONTROL PURPOSES) EXTERNAL PROVIDER RECORDS 2022-03-04 06:01:00 Doctor Unassigned, [facility] [facility] CBC WITH DIFF 2022 11:32:00 Hans [facility] BASIC METABOLIC PANEL 2022-02-15 11:29:00 Hans [facility] (NA, K, CL, CO2, GLUCOSE, Medica l Branch BUN, CREATININE, CA) CBC WITH DIFF 2022-02-15 11:29:00 Jayceyuni [facility] POCT GLUCOSE (AUTOMATED) 2022-02-13 17:55:00 [facility] XR CHEST 1 VW 2022-02-13 12:42:00 Yokasta [facility] POCT GLUCOSE (AUTOMATED) 2022-02-13 11:58:00 Dave Love [facility] PHOSPHORUS 2022-02-13 11:23:00 Yokasta [facility] MAGNESIUM 2022-02-13 11:23[facility]OLIC [facility]EL 2022-02-13 11:23:00 [facility] (NA, K, CL, CO2, GLUCOSE, Medica l Branch BUN, CREATININE, CA) CBC WITH DIFF 2022-02-13 11:23:00 Yokasta [facility] AC PANEL 20 + LACTIC ACID 2022-02-13 10:20:00 Yokasta [facility] POCT GLUCOSE (AUTOMATED) 2022-02-13 05:58:00 Dave Love [facility] TOBRAMYCIN PEAK 2022-02-13 00:33:00 [facility] TOBRAMYCIN TROUGH 2022-02-12 20:04:00 Caden [facility] BASIC METABOLIC PANEL 2022-02-12 11:28:00 [facility] ([facility], K, CL, CO2, GLUCOSE, Medica l Branch BUN, CREATININE, CA) CBC WITH DIFF 2022-02-12 11:28:00 [facility] POCT GLUCOSE (AUTOMATED) 2022-02-12 06:12:00 Abu Matt [facility] POCT GLUCOSE (AUTOMATED) 2022-02-11 11:58:00 u Matt [facility] BASIC METABOLIC PANEL 2022-02-11 10:38:[facility] ([facility], K, CL, CO2, GLUCOSE, Medica l Branch BUN, CREATININE, CA) CBC WITHOUT DIFF 2022-02-11 10:38:00 [facility] 2022-02-11 06:01:00 Camila [facility] POCT GLUCOSE (AUTOMATED) 2022-02-11 05:57:00 Renetta Gutierrez [facility] URINALYSIS 2022-02-11 00:43:00 Camila [facility] URINE CULTURE 2022-02-11 00:43:00 Camila [facility] CLOSTRIDIUM DIFFICILE 2022-02-10 18:37:00 Camila [facility] POCT GLUCOSE (AUTOMATED) 2022-02-10 12:16:00 Renetta Gutierrez [facility] BASIC METABOLIC PANEL 2022-02-10 10:24:00 [facility] (NA, K, CL, CO2, GLUCOSE, Medica l Branch BUN, CREATININE, CA) CBC WITHOUT DIFF 2022-02-10 10:24:00 [facility] POCT GLUCOSE (AUTOMATED) 2022-02-10 06:14:00 Renetta Gutierrez [facility] XR CHEST 1 VW 2022-02-09 23:21:33 [facility]LO[facility] 2022-02-09 19:27:00 Camila Alma [facility] PROCALCITONIN 2022-02-09 19:27:00 Alma Hines [facility] BASIC METABOLIC PANEL 2022-02-09 11:11:00 Sulema [facility] (NA, K, CL, CO2, GLUCOSE, Medica l Branch BUN, CREATININE, CA) CBC WITH DIFF 2022-02-09 11:11:00 Sulema [facility] AC PANEL 20 + LACTIC ACID 2022-02-09 11:11:00 [facility] METABOLIC PANEL 2022-02-08 10:55:00 Moulin [facility] (NA, K, CL, CO2, GLUCOSE, Medica l Branch BUN, CREATININE, CA) CBC WITH DIFF 2022-02-08 10:55:00 Sulema [facility] POCT GLUCOSE (AUTOMATED) 2022-02-07 17:53:00 u Matt [facility] XR CHEST 1 VW 2022-02-07 17:06:45 Kev Robles [facility] BASIC METABOLIC PANEL 2022-02-07 11:26:00 Caden [facility] (NA, K, CL, CO2, GLUCOSE, Medica l Branch BUN, CREATININE, CA) CBC WITH DIFF 2022-02-07 11:26:00 Rian Negrete [facility] VANCOMYCIN TROUGH 2022-02-07 02:39:00 Caden [facility] POCT GLUCOSE (AUTOMATED) 2022-02-06 23:10:00 Abu Matt [facility] POCT GLUCOSE (AUTOMATED) 2022-02-06 17:31:00 Abu Matt [facility] PHOSPHORUS 2022-02-06 11:34:00 MoulinGilbert [facility] MAGNESIUM 2022-02-06 11:34:00 Sulema [facility] BASIC METABOLIC PANEL 2022-02-06 11:34:00 Sulema [facility] (NA, K, CL, CO2, GLUCOSE, Medica l Branch BUN, CREATININE, CA) CBC WITH DIFF 2022-02-06 11:34:00 [facility] / MSSA SCREEN BY 2022-02-05 15:40:00 Helder Faulkner [facility] SPUTUM CULTURE 2022-02-05 15:09:00 [facility] 2022-02-05 10:28:00 [facility] BASIC METABOLIC PANEL 2022-02-05 10:28:00 Raiza Villalobos [facility] (NA, K, CL, CO2, GLUCOSE, Medica l Branch BUN, CREATININE, CA) CBC WITHOUT DIFF 2022-02-05 10:28:00 Wilfredo [facility] AC ABG + LACTIC ACID 2022-02-05 10:28:00 Raiza Villalobos [facility] CT ANGIOGRAM CHEST 2022-02-04 23:06:00 [facility] HEAD WO CONTRAST 2022-02-04 23:06:00 Raiza Villalobos [facility] TRANSTHORACIC ECHO (TTE) 2022-02-04 22:08:15 Rian Negrete [facility] XR CHEST 1 VW 2022-02-04 19:12:13 Wilfredo [facility] AC ABG + LACTIC ACID 2022-02-04 19:10:00 Raiza Villalobos [facility] AC PANEL 20 + LACTIC ACID 2022-02-04 17:27:00 Rian Negrete [facility] ABG+COOX+NA+K+GLU+CA2+ 2022-02-04 15:43:00 Dave Love Un [facility] POCT GLUCOSE (AUTOMATED) 2022-02-04 14:52:00 Renetta Gutierrez [facility] TROPONIN I 2022-02-04 14:49:00 Dave Love [facility] POCT GLUCOSE (AUTOMATED) 2022-02-04 14:34:00 Renetta Gutierrez [facility] HB ECG ROUTINE & RHYTHM 2022-02-04 09:15:55 Sagrario Hernandez [facility] STRIP [facility] POCT GLUCOSE (AUTOMATED) 2022-02-04 02:38:00 Renetta Parhammatteo Dave [facility] POCT GLUCOSE (AUTOMATED) 2022-02-03 22:06:00 Renetta Gutierrez [facility] TEQUILA AURIS 2022-02-03 21:01:00 [facility] SURVEILLANCE BY [facility] (INFECTION CONTROL PURPOSES) POCT GLUCOSE (AUTOMATED) 2022-02-03 17:37:00 [facility] ABDOMEN PELVIS W 2022-02-03 16:29:00 [facility] CONTRAST [facility] THORAX W CONTRAST 2022-02-03 16:29:00 [facility] POCT GLUCOSE (AUTOMATED) 2022-02-03 14:03:00 Renetta Gutierrez [facility] POCT GLUCOSE (AUTOMATED) 2022-02-03 02:49:00 Renetta Gutierrez [facility] XR CHEST 1 VW 2022-02-03 01:56:43 Renetta Gutierrez [facility] ABG+COOX+NA+K+GLU+CA2+ 2022-02-02 20:29:00 [facility]LOOD C[facility] SCREEN 2022-02-02 16:56:00 [facility] BLOOD CULTURE SCREEN 2022-02-02 16:52:[address] [facility] BASIC METABOLIC PANEL 2022-02-02 16:52:00 Dave Love [facility] (NA, K, CL, CO2, GLUCOSE, Medica l Branch BUN, CREATININE, CA) CBC WITH DIFF 2022-02-02 16:52:00 [facility] SPUTUM CULTURE 2022-02-02 16:52:00 [facility] AC PANEL 20 + LACTIC ACID 2022-02-02 16:07:00 Dave Love [facility] POCT GLUCOSE (AUTOMATED) 2022-02-02 14:43:00 Dave Love [facility] Encounters Start End Encounter Admission Attending Care Care Encounter Source Date/Time Date/Time Type Type Clinicians Facility Department ID 2020-12-09 Outpatient [facility] SAMI [id number] Univers 10:31:29 SOPHIE [facility] 2020-12-09 Emergency [facility] [id number] Univers 07:30[facility]-12-08 [facility] [id number] Univers 04:31[facility]19 [facility]26 [facility] [id number] [place] 13:50:36 [facility] 2020-06-26 Outpatient [facility] [id number] [place] 07:30:01 [facility] 2022-06-10 2022-06-10 Orders Doctor HANSA 1.2.840.114 [id number] Univers 00:00:00 00:00:00 Only Unassigned, EVELYNE 350.1.13.10 ity of [place] [facility] 4.2.7.2.686 José Miguel as [phone] [address] 2022-06-02 2022-06-02 Orders Doctor SANTO 1.2.840.114 [id number] Univers 00:00:00 00:00:00 Only Unassigned, EVELYNE 350.1.13.10 ity of [place] [facility] 4.2.7.2.686 José Miguel as [phone] [facility] [address] [place] 2022-05-29 2022-05-29 Transition OSIRIS Dempsey 1.2.840.114 [id number] Univers 00:00:00 00:00:00 of Care Becca LEMA 350.1.13.10 i [place] [phone] [facility] [address] 2022-05-25 2022-05-28 Inpatient U [facility] [id number] Univers 03:27:00 13:00:00 AALIYAH nettles [facility] 2022-05-25 2022-05-28 Hospital Aaliyah Sanchez 1.2.84 0.114 [id number] Univers 03:27:00 13:00:00 Encounter Natalie Chopra 350.1.13.10 ity of HOSPITAL 4.2.7.2.686 José Miguel as [phone] [facility] [address] 2022-03-04 2022-03-04 Orders Doctor HANSA 1.2.840.114 [id number] Univers 00:00:00 00:00:00 Only Unassigned, EVELYNE 350.1.13.10 ity of [place] [facility] 4.2.7.2.686 José Miguel as [phone] [facility] [address] 2022-02-19 2022-02-19 Transition Dempsey CLAUSGoran 1.2.840.114 [id number] Univers 00:00:00 00:00:00 of Care Becca Suznana LEMA 350.1.13.10 i ty of [place] [id number] [facility] [address] 2022-02-02 2022 Inpatient U LION [facility] KATHIE [id number] Univers 07:08:00 16:10:00 CARLOS ity of [facility] 2022-02-02 2022 [facility] 1.2.84 0.114 [id number] Univers 07:08:00 16:10:00 Encounter Caden, [facility] 350.1.13.10 ity of shajiCarlos arais CLEAR 4.2.7.2.686 [facility] [phone] [address] ([facility]) 2021-10-10 2021-10-10 Emergency X ANNETTE WALDEN [facility] ERT 1 [id number] Univers 03:30:00 11:12:00 ANNETTE WALDEN ity of [facility] 2021-10-10 2021-10-10 Emergency MéndezLuis W TRAUMA 1.2.840.11 4 [id number] Univers 03:30:00 11:12:00 Annette Walden [place] 350.1.13.10 [place] [phone] [address] 2021-10-09 2021-10-10 Emergency X NEVA MACHUCA [facility] ERT 1 [id number] Univers 23:12:00 02:45:00 NEVA MACHUCA ity of [facility] 2021-10-09 2021-10-10 Emergency Hajiyev, TRAUMA 1.2.840.114 [id number] Univers 23:12:00 02:45:00 [facility] 350.1.13.10 it [place] [id number] [address] 2021-10-09 2021-10-09 Emergency [facility] [id number] Univers 18:54:00 22:02:00 GERI ity of [facility] 2021-10-09 2021-10-09 Emergency [facility] 1.2.915.616 [id number] Univers 18:54:00 22:02:00 Geri FREDERICK 350.1.13.10 i ty [place] [phone] [address] 2021-09-30 2021-09-30 Telephone [facility] 1.2.840.114 9 [id number] Univers 00:00:00 00:00:00 Kristie FREDERICK 350.1.13.10 i ty [place] [phone] [address] 2021-09-17 2021-09-17 Telephone [facility] 1.2.840.114 9 [id number] Univers 00:00:00 00:00:00 Kristie FREDERICK 350.1.13.10 i ty [place] [phone] [address] 2021-09-17 2021-09-17 Telephone [facility] 1.2.840.114 9 [id number] Univers 00:00:00 00:00:00 Kristie FREDERICK 350.1.13.10 i ty of [place] [phone] Nd dical NAL [address] [place] [address] 2021-08-19 2021-08-19 Outpatient AMBREEN_FAR [facility] [address] [place] 02:21:00 02:21:00 HANA 0712 da [facility] 2021-08-15 2021-08-15 Telephone [facility] 1.2.840.114 9 [id number] Univers 00:00:00 00:00:00 Kristie FREDERICK 350.1.13.10 i ty of [place] [id number] [address] 2021-08-15 2021-08-15 Telephone [facility] 1.2.840.114 9 [id number] Univers 00:00:00 00:00:00 Kristie FREDERICK 350.1.13.10 i ty of [place] [phone] [facility] NAL [address] [place] [address] 2021-06-20 2021-06-20 Telephone [facility] 1.2.840.114 9 [id number] Univers 00:00:00 00:00:00 Kristie FREDERICK 350.1.13.10 i ty of [place] [phone] Nd dicok NAL [address] [place] [address] 2021-06-11 2021-06-11 Telephone [facility] 1.2.840.114 9 [id number] Univers 00:00:00 00:00:00 Kristie FREDERICK 350.1.13.10 i ty of [place].2.[place] [phone] Nd dicok NAL [address] [place] [address] 2021-04-11 2021-04-11 Telephone [facility] 1.2.840.114 9 [id number] Univers 00:00:00 00:00:00 Kristie FREDERICK 350.1.13.10 i ty of [place].2.[place] [phone] Nd dic[address] 2021-04-11 2021-04-11 Orders Doctor HANSA 1.2.840.114 [id number] Univers 00:00:00 00:00:00 Only Unassigned, EVELYNE 350.1.13.10 ity of [place] [facility] 4.2.7.2.686 José Miguel as [phone] [facility] [address] [place] 2021-04-09 2021-04-09 Telephone [facility] 1.2.840.114 9 [id number] Univers 00:00:00 00:00:00 Kristie FREDERICK 350.1.13.10 i ty [place] [id number] [address] 2021-04-04 2021-04-04 Telephone [facility] 1.2.840.114 9 [id number] Univers 00:00:00 00:00:00 Kristie FREDERICK 350.1.13.10 i ty [place] [phone] [address] 2021-04-02 2021-04-02 Orders Doctor HANSA 1.2.840.114 [id number] Univers 00:00:00 00:00:00 Only Unassigned, EVELYNE 350.1.13.10 ity of [place] [facility] 4.2.7.2.686 José Miguel as [phone] [address] 2021-03-12 2021-03-12 Telephone [facility] 1.2.840.114 9 [id number] Univers 00:00:00 00:00:00 Kristie FREDERICK 350.1.13.10 i ty [place] [phone] [address] 2021-02-28 2021-02-28 Orders Doctor HANSA 1.2.840.114 [id number] Univers 00:00:00 00:00:00 Only Unassigned, EVELYNE 350.1.13.10 ity of [place] [facility] 4.2.7.2.686 José Miguel as [phone] [address] 2021-02-27 2021-02-27 [facility] [id number] Univers 09:00:00 16:08:28 KRISTIE ity of [facility] 2021-02-27 2021-02-27 Telemedici [facility] 1.2.840.114 [id number] [facility] 09:00:00 16:08:28 ne Visit Kristie OTONIEL 350.1.13.10 ity of [place] [phone] [address] 2021-02-21 2021-02-21 Telephone [facility] 1.2.840.114 9 [id number] Univers 00:00:00 00:00:00 Kristie JOYCEJOHNY 350.1.13.10 i ty of [place] [id number] [address] 2021-01-30 2021-01-30 Telephone [facility] 1.2.840.114 8 [id number] Univers 00:00:00 00:00:00 Kristie FREDERICK 350.1.13.10 i ty of [place] [phone] [address] 2020-12-27 2020-12-27 Orders Doctor HANSA 1.2.840.114 [id number] Univers 00:00:00 00:00:00 Only Unassigned, EVELYNE 350.1.13.10 ity of [place] [facility] 4.2.7.2.686 José Miguel as [phone] [address] 2020-12-13 2020-12-13 EXT [facility] OP Magat, EXT MSRDP 1.2.840.114 1 [id number] [place] 00:00:00 00:00:00 Rebeca M LOCATION 350.1.13.58 Health 9.2.7.2.686 [id number] 0 2020-12-10 2020-12-10 Outpatient R [facility] [id number] Univers 00:00:00 00:00:00 ity of [facility] 2020-12-10 2020-12-10 Orders Doctor HANSA 1.2.840.114 [id number] Univers 00:00:00 00:00:00 Only Unassigned, EVELYNE 350.1.13.10 ity of [place] [facility] 4.2.7.2.686 José Miguel as [phone] [facility] [address] [place] 2020-11-25 2020-11-25 Outpatient [facility] [id number] Univers 00:00:00 00:00:00 ity [facility] 2020-11-21 2020-11-21 [facility] 1.2.467.332 [id number] Univers 07:45:00 11:11:00 Amos Frederick 350.1.13.10 i ty of [place]2.7.2.686 [place] [phone] [place] 8[address] [place] 2020-11-21 2020-11-21 Emergency X [facility] ERT [id number] Univers 07:45:00 11:11:00 AMOS nettles [facility] 2020-11-12 2020-11-12 Telephone [facility] 1.2.840.114 8 [id number] Univers 00:00:00 00:00:00 Kristie Frederick 350.1.13.10 i ty of [place]2.[place] [phone] Nd dical nal [address] [place] [address] 2020-10-11 2020-10-11 Telephone [facility] 1.2.840.114 8 [id number] Univers 00:00:00 00:00:00 Kristie Frederick 350.1.13.10 i ty of [place]2.[place].2.[place] [phone] Nd dical nal 044 [facility] 2020-10-04 2020-10-04 Orders Doctor SANTO 1.2.840.114 [id number] Univers 00:00:00 00:00:00 Only Unassigned, EVELYNE 350.1.13.10 ity of [place] [facility] 4.2.7.2.686 José Miguel as [phone] [address] 2020-10-04 2020-10-04 Orders Doctor HANSA 1.2.840.114 [id number] Univers 00:00:00 00:00:00 Only Unassigned, EVELYNE 350.1.13.10 ity of [place] [facility] 4.2.7.2.686 José Miguel as [phone] [address] 2020-09-30 2020-09-30 Telephone [facility] 1.2.840.114 8 [id number] Univers 00:00:00 00:00:00 Kristie Frederick 350.1.13.10 i ty of [place] [phone] [address] 2020-09-26 2020-09-26 Telephone [facility] 1.2.840.114 8 [id number] Univers 00:00:00 00:00:00 Kristie Frederick 350.1.13.10 i ty of [place]2.[place] [phone] [address] 2020-09-26 2020-09-26 Telephone [facility] 1.2.840.114 8 [id number] Univers 00:00:00 00:00:00 Kristie Frederick 350.1.13.10 i ty of [place].2.[place] [phone] [address] 2020-09-26 2020-09-26 Orders Doctor SANTO 1.2.840.114 [id number] Univers 00:00:00 00:00:00 Only Unassigned, EVELYNE 350.1.13.10 ity of [place] [facility] 4.2.7.2.686 José Miguel as [phone] [address] 2020-09-26 2020-09-26 Orders Doctor SANTO 1.2.840.114 [id number] Univers 00:00:00 00:00:00 Only Unassigned, EVELYNE 350.1.13.10 ity of [place] [facility] 4.2.7.2.686 José Miguel as [phone] [facility] [address] 2020-09-04 2020-09-04 Transition [place] 1.2.840.114 [id number] Univers 00:00:00 00:00:00 of Care Chinmay Devriesy 350.1.13.10 ity of [place].2.[place] [phone] [facility] [address] 2020-08-19 2020-09-03 [facility] Geri Balderas [facility] 1.2.840.1 14 [id number] Univers 11:47:00 16:25:00 Encounter Sam Balbuena 350.1.13.10 ity of [place] 4.2.7.2.686 [facility] [id number] [facility] [address] 2020-08-06 2020-08-06 Telephone Katherine [facility] 1.2.377.145 [id number] Univers 00:00:00 00:00:00 Paty Frederick 350.1.13.10 ity of [place] [phone] Nd dical nal 204 [facility] 2020-08-06 2020-08-06 Prep For Katherine [facility] 1.2.840.114 [id number] Univers 00:00:00 00:00:00 Surgery Paty Frederick 350.1.13.10 ity of [place] [phone] Nd dical nal 204 [facility] 2020-07-25 2020-07-25 Telephone [facility] 1.2.840.114 8 [id number] Univers 00:00:00 00:00:00 Kristie Fredercik 350.1.13.10 i ty of [place]2.[place] [phone] Nd dical nal 044 [facility] 2020-07-04 2020-07-04 Telephone [facility] 1.2.840.114 8 [id number] Univers 00:00:00 00:00:00 Kristie Frederick 350.1.13.10 i ty of [place].2.[place] [phone] Nd dical nal 044 [facility] 2020-07-04 2020-07-04 Orders Doctor HANSA 1.2.840.114 [id number] [facility] 00:00:00 00:00:00 Only Unassigned, EVELYNE 350.1.13.10 ity of [place] [facility] 4.2.7.2.686 José Miguel as [phone] [address] 2020-06-25 2020-06-[address] [facility] OP Magat, EXT MSRDP 1.2.840.114 1 [id number] [place] 00:00:00 00:00:00 Rebeca M LOCATION 350.1.13.58 Health 9.2.7.2.686 [id number] 0 2020-06-25 2020-06-25 EXT [facility] OP Magat, EXT MSRDP 1.2.840.114 1 [id number] [place] 00:00:00 00:00:00 Rebeca M LOCATION 350.1.13.58 Health 9.2.7.2.686 [id number] 0 2020-06-20 2020-06-20 Telemedici [facility] 1.2.840.114 [id number] [facility] 10:14:46 11:10:57 ne Visit Kristie Frederick 350.1.13.10 ity of [place] [phone] [address] 2020-06-20 2020-06-20 Outpatient R VERONICA [facility] [id number] Univers 09:20:00 09:20:00 KRISTIE itlul of [facility] 2020-06-19 2020-06-19 Telephone Veronica [facility] 1.2.840.114 8 [id number] [facility] 00:00:00 00:00:00 Kristie Frederick 350.1.13.10 i ty of [place]2.[place] [phone] [facility] nal [address] [place] [address] 2020-06-19 2020-06-19 Orders Doctor HANSA 1.2.840.114 [id number] Univers 00:00:00 00:00:00 Only Unassigned, EVELYNE 350.1.13.10 ity of [place] [facility] 4.2.7.2.686 José Miguel as [phone] [address] 2020-06-19 2020-06-[address] [facility] OP Magat, EXT MSRDP 1.2.840.114 1 [id number] [place] 00:00:00 00:00:00 Rebeca M LOCATION 350.1.13.58 Health 9.2.7.2.686 [id number] 0 2020-06-19 2020-06-[address] [facility] OP Magat, EXT MSRDP 1.2.840.114 1 [id number] [place] 00:00:00 00:00:00 Rebeca M LOCATION 350.1.13.58 Health 9.2.7.2.686 [id number] 0 2020-05-22 2020-05-22 Telephone [facility] 1.2.840.114 8 [id number] Univers 00:00:00 00:00:00 Kristie Frederick 350.1.13.10 i ty of [place]2.[place] [phone] Nd dic[address] 2020-05-08 2020-05-08 Telemedici [facility] 1.2.840.114 [id number] Univers 07:58:08 16:59:26 ne Visit Kristie Frederick 350.1.13.10 ity of [place].2.[place] [phone] Nd dicok nal [address] [place] [address] 2020-05-08 2020-05-08 [facility] [id number] Univers 09:00:00 09:00:00 KRISTIE nettles [facility] 2020-05-08 2020-05-08 Patient [facility] 1.2.840.114 [id number] Univers 00:00:00 00:00:00 Outreach Taylor Frederick 350.1.13.10 ity of [place] [phone] Nd dical nal 044 [facility] 2020-05-06 2020-05-06 Telephone [facility] 1.2.840.114 8 [id number] Univers 00:00:00 00:00:00 Kristie Frederick 350.1.13.10 i ty of [place]2.[place] [phone] Nd dical nal 231 [facility] 2020-05-06 2020-05-06 Telephone [facility] 1.2.840.114 8 [id number] Univers 00:00:00 00:00:00 Kristie Frederick 350.1.13.10 i ty of [place] 4[place].2.[place] [phone] Nd dical nal 044 [facility] 2020-04-29 2020-04-29 [facility] 1.2.840.114 [id number] Univers 11:05:00 14:00:00 Encounter Sophie Frederick 350.1.13.10 ity of [place]2.[place] [phone] [facility] [address] [place] 2020-04-28 2020-04-28 Refill [facility] 1.2.840.114 [id number] Univers 00:00:00 00:00:00 Kristie Frederick 350.1.13.10 i ty of [place] [phone] Nd dical nal 044 [facility] 2020-04-26 2020-04-26 Laboratory Only, Adc Test [facility] 1.2.840. 114 [id number] Univers 14:19:39 14:34:39 Only Sophie Lazcano 350.1.13.10 ity of [place].2.686 [place] [phone] [address] 2020-04-26 2020-04-26 Outpatient R NENO [facility] [id number] Univers 14:15:00 14:15:00 SOPHIE nettles [facility] 2020-04-26 2020-04-26 Orders Doctor SANTO 1.2.840.114 [id number] Univers 00:00:00 00:00:00 Only Unassigned, EVELYNE 350.1.13.10 ity of [place] [facility] 4.2.7.2.686 José Miguel as [phone] [facility] [address] [place] 2020-04-24 2020-04-24 Telephone [facility] 1.2.840.114 8 [id number] Univers 00:00:00 00:00:00 Kristie Frederick 350.1.13.10 i ty of [place] 4[place].2.[place] [phone] Nd dical nal 044 [facility] 2020-04-20 2020-04-20 Patient Harman [facility] 1.2.840.114 [id number] Univers 00:00:00 00:00:00 Outreach [facility] 350.1.13.10 i ty of [facility] 4.2.7.2.[place] [phone] Nd dical [address] [place] 2020-04-12 2020-04-12 Prep For Katherine [facility] 1.2.840.114 [id number] Univers 00:00:00 00:00:00 Surgery Paty Ricardo [place] 350.1.13.10 ity of [place] [phone] Nd dical nal 204 [facility] 2020-04-11 2020-04-11 Office Neno [facility] 1.2.481.123 [id number] [id number] Univers 14:43:59 16:04:48 Visit Sophie Frederick 350.1.13.10 i ty of [place].2.[place] [phone] Nd dical nal 188 [facility] 2020-04-11 2020-04-11 Outpatient R NENO [facility] [id number] Univers 15:00:00 15:00:00 SOPHIE nettles of [facility] 2020-04-11 2020-04-11 Orders Doctor SANTO 1.2.840.114 [id number] Univers 00:00:00 00:00:00 Only Unassigned, EVELYNE 350.1.13.10 ity of [place] [facility] 4.2.7.2.686 José Miguel as [phone] [address] 2020-03-19 2020-03-[address] [facility] OP Magat, EXT MSR[facility] 1.2.840.114 1 [id number] [place] 00:00:00 00:00:00 Rebeca M LOCATION 350.1.13.58 Health 9.2.7.2.686 [id number] 0 2020-03-19 2020-03-[address] [facility] OP Magat, EXT MSR[facility] 1.2.840.114 1 [id number] [place] 00:00:00 00:00:00 Rebeca M LOCATION 350.1.13.58 Health 9.2.7.2.686 [id number] 0 2020-03-05 2020-03-05 Telephone [facility] 1.2.840.114 8 [id number] Univers 00:00:00 00:00:00 Kristie Frederick 350.1.13.10 i ty of [place] [phone] Nd dical nal [address] [place] [address] 2020-02-27 2020-02-27 Outpatient Lara LAZCANO [facility] [id number] Univers 14:00:00 14:00:00 SOPHIE nettles [facility] 2020-02-27 2020-02-27 Refill [facility] 1.2.840.114 [id number] Univers 00:00:00 00:00:00 Kristie Frederick 350.1.13.10 i ty of [place] [phone] Nd dical nal 044 [facility] 2020-02-23 2020-02-23 Orders Doctor SANTO 1.2.840.114 [id number] Univers 00:00:00 00:00:00 Only Unassigned, EVELYNE 350.1.13.10 ity of [place] [facility] 4.2.7.2.686 José Miguel as [phone] [address] 2020-02-23 2020-02-23 Telephone [facility] 12.840.114 8 [id number] Univers 00:00:00 00:00:00 Kristie Frederick 350.1.13.10 i ty of [place] [phone] N[place] dical nal 044 [facility] 2020-02-20 2020-02-20 [facility] [id number] Univers 00:00:00 00:00:00 RAIZA itlul of [facility] 2020-02-20 2020-02-[address]2.840.114 8 [id number] Univers 00:00:00 00:00:00 Kristie Frederick 350.1.13.10 i ty [place] [phone] Nd dicok nal [address] [place] [address] 2020-02-13 2020-02-13 [facility] 1.2.840.114 [id number] [facility] 00:00:00 00:00:00 Raiza Frederick 350.1.13.10 ity of [place].2.[place] [phone] Nd dical nal 044 [facility] 2020-01-25 2020-01-25 [facility] 12.840.114 [id number] [facility] 00:00:00 00:00:00 Kristie Frederick 350.1.13.10 i ty of [place] 4[place].2.[place] [phone] Nd dical nal 044 [facility] 2020-01-22 2020-01-22 [facility] 12.840.114 [id number] Univers 00:00:00 00:00:00 Raiza Joyc[place] 350.1.13.10 ity of [place].2.[place] [phone] [facility] 231 [facility] 2020-01-09 2020-01-09 [facility] [id number] Univers 00:00:00 00:00:00 KRISTIE nettles of [facility] 2020-01-09 2020-01-09 Orders Doctor HANSA 1.2.840.114 [id number] [facility] 00:00:00 00:00:00 Only Unassigned, EVELYNE 350.1.13.10 ity of [facility] 4.2.7.2.686 José Miguel as [phone] [address] 2019-12-29 2019-12-29 Telephone [facility] 1.2.840.114 [id number] Univers 00:00:00 00:00:00 Kristie Frederick 350.1.13.10 i ty of [place] 4[place] [phone] Nd dical nal 044 [facility] 2019-12-27 2019-12-27 Telephone [facility] 1.2.840.114 [id number] [facility] 00:00:00 00:00:00 Kristie Frederick 350.1.13.10 i ty of [place] 4[place]2.[place] [phone] Nd dical nal 231 [facility] 2019-12-26 2019-12-26 Refill [facility] 1.2.840.114 [id number] Univers 00:00:00 00:00:00 Kristie Frederick 350.1.13.10 i ty [place] [phone] Nd dical nal 044 [facility] 2019-12-21 2019-12-21 Orders Doctor HANSA 1.2.840.114 [id number] Univers 00:00:00 00:00:00 Only Unassigned, EVELYNE 350.1.13.10 ity of [place] [facility] 4.2.7.2.686 José Miguel as [phone] [address] 2019-12-20 2019-12-20 Office [facility] 1.2.840.114 [id number] Univers 10:45:47 11:05:47 Visit Kristie Frederick 350.1.13.10 i ty of [place] [phone] Nd dical formerly [facility] 044 [facility] 2019-12-20 2019-12-20 Outpatient [facility] [place] [id number] Univers 11:00:00 11:00:00 KRISTIE ity of [facility] 2019-12-19 2019-12-19 Telephone [facility] 1.2.840.114 [id number] Univers 00:00:00 00:00:00 Kristie Frederick 350.1.13.10 i ty of [place] [phone] [facility] 044 [facility] 2019-12-12 2019-12-12 Orders Doctor HANSA 1.2.840.114 [id number] Univers 00:00:00 00:00:00 Only Unassigned, EVELYNE 350.1.13.10 ity of [place] [facility] 4.2.7.2.686 José Miguel as [phone] [address] 2019-12-11 2019-12-11 Office [facility] 1.2.940.731 [id number] Univers 10:10:19 10:50:08 Visit Gema PRIMARY 350.1.13.10 ity of A [facility] [place].2.7.2.[place] [phone] [address] 2019-12-11 2019-12-11 Outpatient R [facility] [id number] Univers 10:00:00 10:00:00 GEMA ity [facility] 2019-12-04 2019-12-04 Refill [facility] 1.2.840.114 [id number] Univers 00:00:00 00:00:00 Kristie Frederick 350.1.13.10 i ty of [place] [phone] [address] 2019-12-04 2019-12-04 Telephone [facility] 1.2.840.114 [id number] Univers 00:00:00 00:00:00 Kristie Frederick 350.1.13.10 i ty of [place] [phone] Nd dical nal 231 [facility] 2019-12-01 2019-12-01 [facility] [id number] Univers 15:30:00 15:30:00 GEMA ity of [facility] 2019-11-30 2019-11-30 Refill [facility] 1.2.840.114 [id number] Univers 00:00:00 00:00:00 Kristie Frederick 350.1.13.10 i ty of [place] [phone] Nd macy nal 044 [facility] 2019-11-16 2019-11-16 Office [facility] 1.2.065.685 [id number] Univers 15:06:40 17:17:25 Visit Gema SPECIALTY 350.1.13.10 ity of [facility] 4.2.7.2.[place] [phone] Nd macy CORTEZ 198 [facility] 2019-11-16 2019-11-16 [facility] [id number] Univers 15:15:00 15:15:00 GEMA ity [facility] 2019-11-16 2019-11-16 Orders Doctor HANSA 1.2.840.114 [id number] Univers 00:00:00 00:00:00 Only Unassigned, EVELYNE 350.1.13.10 ity of [place] [facility] 4.2.7.2.686 José Miguel as [phone] [address] 2019-11-14 2019-11-14 Telephone [facility] 1.2.840.114 [id number] Univers 00:00:00 00:00:00 Kristie Frederick 350.1.13.10 i ty of [place] [phone] Nd macy nal 044 [facility] 2019-11-06 2019-11-06 [facility] [id number] Univers 14:30:00 14:30:00 GEMA ity of [facility] 2019-10-27 2019-10-27 Outpatient [facility] [id number] Univers 00:00:00 00:00:00 ity of [facility] 2019-10-27 2019-10-27 Telephone [facility] 1.2.840.114 [id number] Univers 00:00:00 00:00:00 Kristie Frederick 350.1.13.10 i ty of [place] [phone] [address] 2019-10-27 2019-10-27 Orders Doctor HANSA 1.2.840.114 [id number] Univers 00:00:00 00:00:00 Only Unassigned, EVELYNE 350.1.13.10 ity of [place] [facility] 4.2.7.2.686 José Miguel as [phone] [address] 2019-10-26 2019-10-26 Telephone [facility] 1.2.840.114 7 [id number] Univers 00:00:00 00:00:00 Kristie Frederick 350.1.13.10 i ty of [place] [phone] [address] 2019-10-23 2019-10-23 Office [facility] 1.2.276.862 [id number] Univers 10:07:09 11:04:15 Visit Gema PRIMARY 350.1.13.10 ity of A [facility] 4.2.7.2.[place] [phone] [address] 2019-10-23 2019-10-23 [facility] [id number] Univers 10:00:00 10:00:00 GEMA ity of [facility] 2019-10-18 2019-10-18 Telephone [facility] 1.2.840.114 [id number] Univers 00:00:00 00:00:00 Kristie Frederick 350.1.13.10 i ty of [place] [phone] [address] 2019-10-18 2019-10-18 [facility] 1.2.840.114 [id number] Univers 00:00:00 00:00:00 Kristie Frederick 350.1.13.10 i ty of [place] [phone] [address] 2019-10-06 2019-10-06 [facility] 1.2.840.114 [id number] Univers 00:00:00 00:00:00 Raiza Frederick 350.1.13.10 ity of [place] 4[place].2.[place] [phone] [address] 2019-10-04 2019-10-04 [facility] 1.2.840.114 [id number] Univers 00:00:00 00:00:00 Kristie Frederick 350.1.13.10 i ty of [place] [phone] [address] 2019-09-26 2019-09-26 Telephone [facility] 1.2.840.114 7 [id number] Univers 00:00:00 00:00:00 Kristie Frederick 350.1.13.10 i ty of [place].2.[place] [phone] [address] 2019-09-21 2019-09-21 Orders Doctor HANSA 1.2.840.114 [id number] Univers 00:00:00 00:00:00 Only Unassigned, EVELYNE 350.1.13.10 ity of [place] [facility] 4.2.7.2.686 José Miguel as [phone] [address] 2019-09-14 2019-09-14 Telephone [facility] 1.2.840.114 7 [id number] Univers 00:00:00 00:00:00 Kristie Frederick 350.1.13.10 i ty of [place] 4[place].2.[place] [phone] [address] 2019-09-08 2019-09-08 Outpatient R RODGER [facility] [id number] Univers 10:15:00 10:15:00 GEMA ity of [facility] 2019-09-01 2019-09-01 [facility] 1.2.840.114 [id number] Univers 00:00:00 00:00:00 Kristie Frederick 350.1.13.10 i ty of [place] [phone] Nd dical nal 044 [facility] 2019-08-30 2019-08-30 Office [facility] 1.2.840.114 [id number] Univers 12:42:28 13:14:49 Visit Madonna Frederick 350.1.13.10 ity of [place].2.[place] [phone] Nd dical nal 059 [facility] 2019-08-30 2019-08-30 Outpatient [facility] [id number] Univers 13:00:00 13:00:00 RHONDAEMIR ity o f [facility] 2019-08-30 2019-08-30 Telephone [facility] 1.2.994.509 [id number] Univers 00:00:00 00:00:00 Feli Frederick 350.1.13.10 i ty of [place] [phone] Nd dical nal 085 [facility] 2019-08-29 2019-08-29 Orders Doctor HANSA 1.2.840.114 [id number] Univers 00:00:00 00:00:00 Only Unassigned, EVELYNE 350.1.13.10 ity of [place] [facility] 4.2.7.2.686 José Miguel as [phone] [facility] sydnee [address] [place] 2019-08-28 2019-08-28 Office [facility] 1.2.360.055 [id number] Univers 13:44:42 14:24:45 Visit Eboni GUALLPA 350.1.13.10 ity of [place] 4[place]2.[place].2.[place] [phone] Nd dical [address] [place] 2019-08-28 2019-08-28 [facility] [id number] Univers 14:00:00 14:00:00 EBONI nettles [facility] 2019-08-28 2019-08-28 Telephone [facility] 1.2.840.114 [id number] Univers 00:00:00 00:00:00 Eboni J PRIMARY 350.1.13.10 ity of [place].2.[place] [phone] Me dical [address] [place] 2019-08-15 2019-08-15 Orders Doctor HANSA 1.2.840.114 [id number] Univers 00:00:00 00:00:00 Only Unassigned, EVELYNE 350.1.13.10 ity of [place] [facility] 4.2.7.2.686 José Miguel as [phone] [address] 2019-08-14 2019-08-14 [facility] [id number] Univers 15:30:00 15:30:00 EBONI igorlul [facility] 2019-07-24 2019-08-14 Telemedici Pavan Craig [facility] 1.2.840.114 [id number] Univers 10:26:24 14:49:58 ne Visit SPECIALTY 350.1.13.10 ity of [place]2.7.2.[place] [phone] Nd dical VICTORY 201 [facility] 2019-08-14 2019-08-14 Outpatient [facility] [id number] Univers 13:30:00 13:30:00 EBONI igorlul [facility] 2019-08-09 2019-08-09 Outpatient R EDEMECOBY, [facility] [id number] Univers 09:00:00 09:00:00 KRISTIE nettles [facility] 2019-08-09 2019-08-09 Telemedici [facility] 1.2.840.114 [id number] Univers 08:24:16 08:39:16 ne Visit Kristie Frederick 350.1.13.10 ity of [place]2.7.2.686 [place] [facility] [phone] Nd dic[address] 2019-08-08 2019-08-08 Telephone [facility] 1.2.840.114 7 [id number] Univers 00:00:00 00:00:00 Kristie Frederick 350.1.13.10 i ty of [place].2.[place] [phone] [address] 2019-08-07 2019-08-07 Telephone [facility] 1.2.840.114 7 [id number] Univers 00:00:00 00:00:00 Kristie Frederick 350.1.13.10 i ty of [place].2.[place] [phone] [address] 2019-08-01 2019-08-01 Telephone [facility] 1.2.840.114 7 [id number] Univers 00:00:00 00:00:00 Kristie Frederick 350.1.13.10 i ty of [place] 4[place].2.[place] [phone] [address] 2019-07-26 2019-07-26 Orders Doctor HANSA 1.2.840.114 [id number] Univers 00:00:00 00:00:00 Only Unassigned, EVELYNE 350.1.13.10 ity of [place] [facility] 4.2.7.2.686 José Miguel as [phone] [address] 2019-07-24 2019-07-24 Outpatient PAVAN DEE [facility] [id number] Univers 09:30:00 09:30:00 ity of [facility] 2019-07-21 2019-07-21 Telephone [facility] 1.2.840.114 7 [id number] Univers 00:00:00 00:00:00 Kristie Frederick 350.1.13.10 i ty of [place] [phone] [address] 2019-07-17 2019-07-17 Telephone [facility] 1.2.840.114 7 [id number] Univers 00:00:00 00:00:00 Kristie Frederick 350.1.13.10 i ty of [place].2.[place] [phone] [address] 2019-07-14 2019-07-14 Outpatient [facility] [id number] Univers 00:00:00 00:00:00 ity of [facility] 2019-07-14 2019-07-14 Orders Doctor HANSA 1.2.840.114 [id number] Univers 00:00:00 00:00:00 Only Unassigned, EVELYNE 350.1.13.10 ity of [facility] 4.2.7.2.686 José Miguel as [phone] [address] 2019-07-12 2019-07-12 Outpatient R [facility] [id number] Univers 10:00:00 10:00:00 ity of [facility] 2019-07-12 2019-07-12 Refill [facility] 1.2.840.114 [id number] Univers 00:00:00 00:00:00 Kristie Frederick 350.1.13.10 i ty of [place] 4[place].2.[place] [phone] [address] 2019-07-06 2019-07-06 Telephone [facility] 1.2.840.114 7 [id number] Univers 00:00:00 00:00:00 Kristie Frederick 350.1.13.10 i ty of [place].2.[place] [phone] [address] 2019-07-04 2019-07-04 Telephone [facility] 1.2.840.114 7 [id number] Univers 00:00:00 00:00:00 Kristie [facility] 350.1.13.10 it y of [place] 4.2.7.2.686 José Miguel as Professio [phone] [address] Office [facility] 2019-06-30 2019-06-30 Outpatient [facility] [id number] Univers 00:00:00 00:00:00 ity [facility] 2019-06-30 2019-06-30 Telephone [facility] 1.2.840.114 7 [id number] Univers 00:00:00 00:00:00 Kristie Frederick 350.1.13.10 i ty of [place] 4[place].2.[place] [phone] [address] 2019-06-30 2019-06-30 Orders Doctor HANSA 1.2.840.114 [id number] Univers 00:00:00 00:00:00 Only Unassigned, EVELYNE 350.1.13.10 ity of [place] [facility] 4.2.7.2.686 José Miguel as [phone] [address] 2019-06-29 2019-06-29 [facility] 1.2.840.114 7 [id number] Univers 00:00:00 00:00:00 Kristie Frederick 350.1.13.10 i ty [place] 4[place]2.[place].2.[place] [phone] [address] 2019-06-28 2019-06-28 [facility] 1.2.840.114 7 [id number] Univers 00:00:00 00:00:00 Kristie Frederick 350.1.13.10 i ty of [place] 4[place]2.7.2.[place] [phone] [address] 2019-06-26 2019-06-26 [facility] 1.2.840.114 7 [id number] Univers 00:00:00 00:00:00 Kristie Frederick 350.1.13.10 i ty of [place] 4.2.7.2.[place] [phone] Nd dicok nal [address] [place] [address] 2019-06-22 2019-06-22 Telephone [facility] 1.2.840.114 7 [id number] Univers 00:00:00 00:00:00 Kristie Frederick 350.1.13.10 i ty of [place] 4[place]2.7.2.[place] [phone] [address] 2019-06-16 2019-06-16 Telephone [facility] 1.2.840.114 7 [id number] Univers 00:00:00 00:00:00 Kristie Frederick 350.1.13.10 i ty of [place] 4.2.7.2.[place] [phone] Nd macy [address] 2019-06-16 2019-06-16 [facility] 1.2.840.114 [id number] Univers 00:00:00 00:00:00 Kristie Frederick 350.1.13.10 i ty [place] 4[place].2.[place] [phone] [address] 2019-06-13 2019-06-13 [facility] 1.2.840.114 [id number] Univers 00:00:00 00:00:00 Raiza Frederick 350.1.13.10 ity of [place].2.[place] [phone] [address] 2019-06-09 2019-06-09 Patient Lance, [facility] 1.2.840.114 [id number] Univers 00:00:00 00:00:[address] [facility] 350.1.13.10 i ty of [place] 4.2.7.2.686 José Miguel as Professio [phone] [facility] [address] [place] [address] 2019-06-08 2019-06-08 Patient Lance [facility] 1.2.840.114 [id number] Univers 00:00:00 00:00:[address] [facility] 350.1.13.10 i ty of [place] 4.2.7.2.686 José Miguel as Professio [phone] [facility] [address] [place] [address] 2019-06-08 2019-06-08 Patient Lance [facility] 1.2.840.114 [id number] Univers 00:00:00 00:00:[address] [facility] 350.1.13.10 i ty of [place] 4.2.7.2.686 José Miguel as Professio [phone] [facility] nal 044 [facility] 2019-06-07 2019-06-07 Patient Lance [facility] 1.2.840.114 [id number] Univers 00:00:00 00:00:00 Outreach Kayla Frederick 350.1.13.10 ity of [place] 4.2.7.2.[place] [phone] [facility] 231 [facility] 2019-06-06 2019-06-06 Telemedici [facility] 1.2.840.114 [id number] Univers 14:24:28 16:27:26 ne Visit Kristie Frederick 350.1.13.10 ity of [place] 4[place]2.7.2.[place] [phone] Nd dical nal [address] [place] [address] 2019-06-06 2019-06-[address] [facility] [id number] Univers 13:40:00 13:40:00 KRISTIE nettles [facility] 2019-06-06 2019-06-06 Telephone [facility] 1.2.840.114 7 [id number] Univers 00:00:00 00:00:00 Kristie Frederick 350.1.13.10 i ty of [place] 4.2.7.2.[place] [phone] Nd dical nal [address] [place] [address] 2019-06-01 2019-06-01 Telephone [facility] 1.2.840.114 7 [id number] Univers 00:00:00 00:00:00 Kristie Frederick 350.1.13.10 i ty of [place] 4.2.7.2.[place] [phone] Nd dical nal [address] [place] [address] 2019-06-01 2019-06-01 Telephone [facility] 1.2.840.114 7 [id number] Univers 00:00:00 00:00:00 Kristie Frederick 350.1.13.10 i ty [place] 4[place]2.7.2.[place] [phone] Nd dical nal [address] [place] [address] 2019-05-31 2019-05-31 Outpatient [facility] [id number] Univers 00:00:00 00:00:00 ity of [facility] 2019-05-31 2019-05-31 Telephone [facility] 1.2.840.114 7 [id number] Univers 00:00:00 00:00:00 Kristie Frederick 350.1.13.10 i ty of [place] 4[place]2.7.2.[place] [phone] Nd dic[address] 2019-05-29 2019-05-29 Telephone [facility] 1.2.840.114 7 [id number] Univers 00:00:00 00:00:00 Kristie Frederick 350.1.13.10 i ty of [place] 4.2.7.2.[place] [phone] [address] 2019-05-29 2019-05-29 [facility] 1.2.840.114 7 [id number] Univers 00:00:00 00:00:00 Kristie Frederick 350.1.13.10 i ty of [place] 4.2.7.2.[place] [phone] [address] 2019-05-24 2019-05-24 Outpatient PAVAN DEE [facility] [id number] Univers 15:45:00 15:45:00 [facility] 2019-05-24 2019-05-24 Telephone [facility] 1.2.840.114 [id number] Univers 00:00:00 00:00:00 Kristie Frederick 350.1.13.10 i ty of [place] 4[place]2.7.2.[place] [phone] [address] 2019-05-15 2019-05-15 Refill [facility] 1.2.840.114 [id number] Univers 00:00:00 00:00:00 Kristie Frederick 350.1.13.10 i ty of [place] 4.2.7.2.[place] [phone] Nd dic[address] 2019-05-10 2019-05-10 Telephone [facility] 1.2.840.114 7 [id number] Univers 00:00:00 00:00:00 Kristie Frederick 350.1.13.10 i ty of [place] 4.2.7.2.[place] [phone] Nd dical nal 044 [facility] 2019-05-10 2019-05-10 Patient Doctor REGINA 1.2.840.114 [id number] Univers 00:00:00 00:00:00 Secure Msg Unassigned, SPECIALTY 350.1.13.10 ity of [place] C[place] 4.2.7.2.[place] [phone] Nd macy CORTEZ 201 [facility] 2019-04-28 2019-04-28 Telephone Veronica [facility] 1.2.840.114 [id number] Univers 00:00:00 00:00:00 Kristie Frederick 350.1.13.10 i ty of [place] 4.2.7.2.[place] [phone] Nd dicok nal 044 [facility] 2019-04-28 2019-04-28 Orders Doctor HANSA 1.2.840.114 [id number] Univers 00:00:00 00:00:00 Only Unassigned, EVELYNE 350.1.13.10 ity of [place] [facility] 4.2.7.2.686 José Miguel as [phone] [facility] [address] [place] 2019-04-26 2019-04-26 Outpatient R PAVAN CRAIG [facility] [id number] Univers 15:45:00 15:45:00 ity of [facility] 2019-04-26 2019-04-26 Telephone Pavan Craig 1.2.840.114 7 [id number] Univers 00:00:00 00:00:00 EVELYNE 350.1.13.10 it y of HOSPITAL 4.2.7.2.686 José Miguel as [phone] [facility] [address] [place] 2019-04-13 2019-04-13 Outpatient R VERONICA [facility] [id number] Univers 15:40:00 15:40:00 KRISTIE nettles [facility] 2019-04-13 2019-04-13 Telephone Veronica [facility] 1.2.840.114 [id number] Univers 00:00:00 00:00:00 Kristie Frederick 350.1.13.10 i ty of [place] 4.2.7.2.[place] [phone] Nd dical nal [address] [place] [address] 2019-04-12 2019-04-12 Outpatient PAVAN DEE [facility] [id number] Univers 15:00:00 15:00:00 ity of [facility] 2019-04-11 2019-04-11 Telephone [facility] 1.2.840.114 [id number] Univers 00:00:00 00:00:00 Kristie rFederick 350.1.13.10 i ty of [place] 4[place]2.7.2.[place] [phone] Nd dic[address] 2019-04-11 2019-04-11 Orders Doctor HANSA 1.2.840.114 [id number] Univers 00:00:00 00:00:00 Only Unassigned, EVELYNE 350.1.13.10 ity of [place] [facility] 4.2.7.2.686 José Miguel as [phone] [address] 2019-04-07 2019-04-07 Refill [facility] 1.2.840.114 [id number] Univers 00:00:00 00:00:00 Kristie Frederick 350.1.13.10 i ty of [place] 4[place]2.7.2.[place] [phone] Nd dicok nal [address] [place] [address] 2019-04-06 2019-04-06 Telephone [facility] 1.2.840.114 7 [id number] Univers 00:00:00 00:00:00 Kristie Frederick 350.1.13.10 i ty of [place] 4[place].2.[place] [phone] Nd dic[address] 2019-04-05 2019-04-05 [facility] 1.2.840.114 7 [id number] Univers 00:00:00 00:00:00 Kristie Frederick 350.1.13.10 i ty of [place].2.[place] [phone] [address] 2019-04-03 2019-04-03 Orders Doctor HANSA 1.2.840.114 [id number] Univers 00:00:00 00:00:00 Only Unassigned, EVELYNE 350.1.13.10 ity of [place] [facility] 4.2.7.2.686 José Miguel as [phone] [facility] [address] [place] 2019-03-30 2019-03-30 Telephone [facility] 1.2.840.114 7 [id number] Univers 00:00:00 00:00:00 Kristie Frederick 350.1.13.10 i ty of [place] [phone] [address] 2019-03-28 2019-03-28 Telephone [facility] 1.2.840.114 7 [id number] Univers 00:00:00 00:00:00 Kristie Frederick 350.1.13.10 i ty of [place].2.[place] [phone] [address] 2019-03-27 2019-03-27 Telephone [facility] 1.2.840.114 7 [id number] Univers 00:00:00 00:00:00 Kristie Frederick 350.1.13.10 i ty [place].2.[place] [phone] [address] 2019-03-24 2019-03-24 [facility] 1.2.660.428 [id number] Univers 12:20:24 16:24:00 Sobia Frederick 350.1.13.10 ity of [place].2.7.2.686 [place] [phone] [facility] [address] [place] 2019-03-24 2019-03-24 Emergency X [facility] [id number] Univers 12:20:24 16:24:00 SOBIA ity of [facility] 2019-03-21 2019-03-21 Telephone Veronica [place] 1.2.840.114 [id number] Univers 00:00:00 00:00:00 Kristie [place] 350.1.13.10 it y [id number] [phone] [address] 2019-03-21 2019-03-21 Telephone [facility] 1.2.840.114 [id number] Univers 00:00:00 00:00:00 Kristie Frederick 350.1.13.10 i [place] [phone] N[place] dical nal 044 [facility] 2019-03-09 2019-03-09 [facility], Adc Cardio Fac [facility] 1. 2.840.114 [id number] [facility] 15:02:24 15:50:41 Only 1, Adc Cardio Fac [facility] 350.1. 13.10 ity of [place] Marcelino Maurizio 4.2.7.2.686 [place] Profess[place] [phone] [facility] 059 [facility] 2019-03-08 2019-03-08 Telephone [facility] 1.2.840.114 [id number] Univers 00:00:00 00:00:00 Kristie Frederick 350.1.13.10 i ty [place] [phone] N[place] dical nal [address] [place] [address] 2019-03-07 2019-03-07 Telephone [facility] 1.2.840.114 [id number] Univers 00:00:00 00:00:00 Kristie Zillah 350.1.13.10 i [place] [phone] N[place] dical nal 044 [facility] 2019-02-28 2019-02-28 Telephone [facility] 1.2.840.114 [id number] Univers 00:00:00 00:00:00 Kristie Otoniel 350.1.13.10 i [place] [phone] Nd dical nal 044 [facility] 2019-02-24 2019-02-24 Orders Doctor SANTO 1.2.840.114 [id number] Univers 00:00:00 00:00:00 Only Unassigned, EVELYNE 350.1.13.10 ity of [place] [facility] 4.2.7.2.686 José Miguel as [phone] [facility] [address] 2019-02-24 2019-02-24 Telephone Veronica [facility] 1.2.840.114 [id number] Univers 00:00:00 00:00:00 Kristie Frederick 350.1.13.10 i [place] [phone] [facility] [address] Building 2019-02-22 2019-02-22 Refill Andi Castrejon [facility] 1.2.840.114 [id number] Univers 00:00:00 00:00:00 Stacie Frederick 350.1.13.10 i [place] [phone] [place] [address] [address] Building 2018-10-26 2018-10-26 Transition Osiris Dempsey 1.2.840.114 [id number] Univers 00:00:00 00:00:00 of Care Becca Lema 350.1.13.10 i [place] [phone] [facility] [address] 2018-10-21 2018-10-25 Hospital Amos Andrews [facility] 1.2.840.1 [id number] Univers 06:52:14 16:05:00 Encounter Ricky Sher 350.1.13.10 [place] [phone] [facility] [address] 2018-10-21 2018-10-21 Telephone Andi Castrejon [facility] 1.2.840.114 [id number] Univers 00:00:00 00:00:00 C [facility] 350.1.13.10 it y of [place] 4.2.7.2.686 José Miguel as Professio [phone] [place] [address] [address] Office Building One 2018-10-13 2018-10-15 Hospital Geri Balderas [facility] 1.2.840.1 14 [id number] Univers 09:58:28 18:45:00 Encounter Eliu Wallace Zillah 350.1.13.10 it[place] of [place] [phone] [facility] [address] [place] 2018-10-07 2018-10-07 Anid Henriquez [facility] 1.2.840.114 [id number] Univers 00:00:00 00:00:00 C Zillah 350.1.13.10 i [place] [phone] [address] 2018-09-27 2018-09-27 Refill Andi Castrejon [facility] 1.2.840.114 [id number] Univers 00:00:00 00:00:00 C Zillah 350.1.13.10 i [place] [phone] [address] 2018-09-27 2018-09-27 Orders Doctor HANSA 1.2.840.114 [id number] Univers 00:00:00 00:00:00 Only Unassigned, EVELYNE 350.1.13.10 ity of [place] [facility] 4.2.7.2.686 José Miguel as [phone] [facility] [address] [place] 2018-09-23 2018-09-23 Andi Henriquez [facility] 1.2.840.114 [id number] Univers 00:00:00 00:00:00 C Zillah 350.1.13.10 i [place] of [place] [phone] [address] 2018-09-22 2018-09-22 Telephone Andi Castrejon [facility] 1.2.840.114 [id number] Univers 00:00:00 00:00:00 C Zillah 350.1.13.10 i [place] [phone] [address] 2018-09-22 2018-09-22 Orders Doctor SANTO 1.2.840.114 [id number] Univers 00:00:00 00:00:00 Only Unassigned, EVELYNE 350.1.13.10 ity of [place] [facility] 4.2.7.2.686 José Miguel as [phone] [address] 2018-09-20 2018-09-20 Andi Henriquez [facility] 1.2.840.114 [id number] Univers 00:00:00 00:00:00 C Zillah 350.1.13.10 i ty [place] [phone] [address] 2018-09-19 2018-09-19 Andi Henriquez [facility] 1.2.840.114 [id number] Univers 00:00:00 00:00:00 C Zillah 350.1.13.10 i [place] [phone] [address] 2018-09-15 2018-09-15 Office Andi Castrejon [facility] 1.2.840.114 [id number] Univers 12:31:10 13:11:10 Visit C Zillah 350.1.13.10 i [place] [phone] [address] 2018-09-15 2018-09-15 Orders Doctor HANSA 1.2.840.114 [id number] Univers 00:00:00 00:00:00 Only Unassigned, EVELYNE 350.1.13.10 ity of [place] [facility] 4.2.7.2.686 José Miguel as [phone] [address] 2018-09-09 2018-09-09 Andi Henriquez [facility] 1.2.840.114 [id number] Univers 00:00:00 00:00:00 C Zillah 350.1.13.10 i [place] [phone] [address] 2018-09-09 2018-09-09 Andi Henriquez [facility] 1.2.840.114 [id number] Univers 00:00:00 00:00:00 C Zillah 350.1.13.10 i ty of [place] [phone] Nd dical nal 044 [facility] 2018-09-09 2018-09-09 Telephone Andi Castrejon [facility] 1.2.840.114 [id number] Univers 00:00:00 00:00:00 C Zillah 350.1.13.10 i ty [place] [phone] Nd dical nal 044 [facility] 2018-08-27 2018-08-27 Orders Doctor HANSA 1.2.840.114 [id number] Univers 00:00:00 00:00:00 Only Unassigned, EVELYNE 350.1.13.10 ity of [place] [facility] 4.2.7.2.686 José Miguel as [phone] [address] 2018-06-23 2018-06-22 Inpatient E [facility] 7515 [facility] 04:46:00 20:30:00 2018-06-05 2018-06-05 Emergency E [facility] 9118 [facility] 13:21:00 13:21:00 2018-05-30 2018-05-30 Outpatient JONATHAN COOK [facility] [id number] Univers 00:00:00 00:00:00 [facility] 2018-05-30 2018-05-30 Outpatient JONATHAN COOK [facility] [id number] Univers 00:00:00 00:00:00 [facility] Results Test Description Test Time Test Comments Results Result Comments Source Lactic Acid Whole Blood 2022-05-26 11:16:51 Test Item Value Reference Range Interpretation Comme nts LACTIC ACID (test code = 4092023325) 1.30 mmol/L 0.50-2.20 Lab Interpretation (test code = 23630-4) [facility] [id number] 01:12:02 Test Item Value Reference Range Interpretation Comments LACTIC ACID (test code = 3.53 mmol/L 0.50-2.20 H 3380844903) Lab Interpretation (test code = Abnormal 19272-9) [facility] [id number] 16:11:24 Test Item Value Reference Range Interpretation Comments LACTIC ACID (test code = 2.96 mmol/L 0.50-2.20 H 9637482196) Lab Interpretation (test code = Abnormal 43954-6) [facility] [id number] 10:34:33 Test Item Value Reference Range Interpretation Comments LACTIC ACID (test code = 3.02 mmol/L 0.50-2.20 H QUE S 1398046683) Lab Interpretation (test code = Abnormal 69523-4) [facility] [id number] 11:47:20 Test Item Value Reference Range Interpretation Comments WBC (test code = See_Comment H [Automated 6690-2) message] The sy stem which generated this result transmitted reference range : 4.20 - 10.70 10*3/?L. The reference range was not used to interpret this result as normal/abnormal . RBC (test code = See_Comment L [Automated 789-8) message] The sy stem which generated this result transmitted reference range : 4.26 - 5.52 10*6/?L. The reference range was not used to interpret this result as normal/abnormal . HGB (test code = 13.4 g/dL 12.2-16.4 718-7) HCT (test code = 39.7 % 38.4-49.3 4544-3) MCV (test code = 94.7 fL 81.7-95.6 787-2) MCH (test code = 32.0 pg 26.1-32.7 785-6) MCHC (test code = 33.8 g/dL 31.2-35.0 786-4) RDW-SD (test code = 44.7 fL 38.5-51.6 13450-4) RDW-CV (test code = 13.9 % 12.1-15.4 788-0) PLT (test code = See_Comment H [Automated 777-3) message] The sy stem which generated this result transmitted reference range : 150 - 328 10*3/ ?L. The reference r sera was not used to interpret this result as normal/abnormal . MPV (test code = 9.9 fL 9.8-13.0 45320-4) NRBC/100 WBC (test See_Comment [Automat ed code = 2053399269) message] The system which generated this result transmitted reference range : 0.0 - 10.0 /100 WBCs. The refer ence range was not u sed to interpret th is result as normal/abnormal . NRBC x10^3 (test code See_Comment [Auto mated = 9200222255) message] The s ystem which generated this result transmitted reference range : 10*3/?L. The reference range was not used to interpret this result as normal/abnormal . GRAN MAT (NEUT) % 57.1 % (test code = 770-8) IMM GRAN % (test code 0.30 % = 3330210547) LYMPH % (test code = 28.4 % 736-9) MONO % (test code = 7.2 % 5905-5) EOS % (test code = 6.6 % 713-8) BASO % (test code = 0.4 % 706-2) GRAN MAT x10^3(ANC) 6.55 10*3/uL 1.99-6.95 (test code = 7617109729) IMM GRAN x10^3 (test 0.04 10*3/uL 0.00-0.06 code = 1393874787) LYMPH x10^3 (test code 3.26 10*3/uL 1.09-3.23 H = 731-0) MONO x10^3 (test code 0.83 10*3/uL 0.36-1.02 = 742-7) EOS x10^3 (test code = 0.76 10*3/uL 0.06-0.53 H 711-2) BASO x10^3 (test code 0.05 10*3/uL 0.01-0.09 = 704-7) Lab Interpretation Abnormal (test code = 31870-3) [facility] METABOLIC PANEL (NA, K, CL, CO2, GLUCOSE, BUN, CREATININE, CA)2022-02-15 11:47:33 Test Item Value Reference Range Interpretation Comments NA (test code = 139 mmol/L 135-145 6639264110) K (test code = 4.4 mmol/L 3.5-5.0 0471242791) CL (test code = 110 mmol/L 98-108 H 1455870618) CO2 TOTAL (test code = 27 mmol/L 23-31 5807371923) AGAP (test code = 2-16 1845179319) BUN (test code = 17 mg/dL 7-23 3435212686) GLUCOSE (test code = 102 mg/dL 70-110 6721587105) CREATININE (test code = 0.49 mg/dL 0.60-1.25 L 2910292670) CALCIUM (test code = 8.1 mg/dL 8.6-10.6 L 6483080579) eGFR (test code = mL/min/1.73m2 2859993607) RANJIT (test code = RANJIT) Association of Glomerular Filtration Rate (GFR) and Staging of Kidney Disease* + --+ --+ ------+| GFR (mL/min/1.73 m2) ?| With Kidney Damage ?| ?Without Kidney Damage+ --------+ --------+ +| ?>90 ?| ?Stage one ?| ? Normal ?+ ---+ ---+ -------+| ?60-89 ?| ?Stage two ?| ? Decreased GFR ? + --+ --+ ------+| ?30-59 ?| ?Stage three ?| ? Stage three ? + --+ --+ ------+| ?15-29 ?| ?Stage four ? | ? Stage four ?+ ---+ ---+ -------+| ?<15 (or dialysis) ? ?| ?Stage five ? | ? Stage five ?+ ---+ ---+ -------+ *Each stage assumes the associated GFR level has been in effect for at least three months. ?Stages 1 to 5, with or without kidney disease, indicate chronic kidney disease. Notes: Determination of stages one and two (with eGFR >59mL/min/1.73 m2) requires estimation of kidney damage for at least three months as defined by structural or functional abnormalities of the kidney, manifested by either:Pathological abnormalities or Markers of kidney damage (including abnormalities in the composition of the blood or urine or abnormalities in imaging tests). Lab Interpretation Abnormal (test code = 46386-3) [facility] WITH [id number] 11:37:53 Test Item Value Reference Range Interpretation Comments WBC (test code = See_Comment H [Automated 4590-2) message] The sy stem which generated this result transmitted reference range : 4.20 - 10.70 10*3/?L. The reference range was not used to interpret this result as normal/abnormal . RBC (test code = See_Comment L [Automated 789-8) message] The sy stem which generated this result transmitted reference range : 4.26 - 5.52 10*6/?L. The reference range was not used to interpret this result as normal/abnormal . HGB (test code = 11.9 g/dL 12.2-16.4 L 718-7) HCT (test code = 34.7 % 38.4-49.3 L 4544-3) MCV (test code = 92.0 fL 81.7-95.6 787-2) MCH (test code = 31.6 pg 26.1-32.7 785-6) MCHC (test code = 34.3 g/dL 31.2-35.0 786-4) RDW-SD (test code = 40.2 fL 38.5-51.6 31095-1) RDW-CV (test code = 13.0 % 12.1-15.4 788-0) PLT (test code = See_Comment [Automated 777-3) message] The sy stem which generated this result transmitted reference range : 150 - 328 10*3/ ?L. The reference r sera was not used to interpret this result as normal/abnormal . MPV (test code = 10.1 fL 9.8-13.0 97973-5) NRBC/100 WBC (test See_Comment [Automat ed code = 7045037450) message] The system which generated this result transmitted reference range : 0.0 - 10.0 /100 WBCs. The refer ence range was not u sed to interpret th is result as normal/abnormal . NRBC x10^3 (test code See_Comment [Auto mated = 6618258750) message] The s ystem which generated this result transmitted reference range : 10*3/?L. The reference range was not used to interpret this result as normal/abnormal . GRAN MAT (NEUT) % 70.2 % (test code = 770-8) IMM GRAN % (test code 0.50 % = 0155663378) LYMPH % (test code = 18.5 % 736-9) MONO % (test code = 6.7 % 5905-5) EOS % (test code = 3.9 % 713-8) BASO % (test code = 0.2 % 706-2) GRAN MAT x10^3(ANC) 8.18 10*3/uL 1.99-6.95 H (test code = 2446935528) IMM GRAN x10^3 (test 0.06 10*3/uL 0.00-0.06 code = 3675187461) LYMPH x10^3 (test code 2.16 10*3/uL 1.09-3.23 = 731-0) MONO x10^3 (test code 0.78 10*3/uL 0.36-1.02 = 742-7) EOS x10^3 (test code = 0.46 10*3/uL 0.06-0.53 711-2) BASO x10^3 (test code 0.01-0.09 = 704-7) Lab Interpretation Abnormal (test code = 88530-8) [facility] [id number] 20:01:39 Test Item Value Reference Range Interpretation Comments Blood Culture-Aerobic No organisms No growth Previo us (test code = 49890-2) isolated prelim inary verified result was Culture In Progress on 02/09/2022 at 170 1 CSTPrevious preliminary verified result was No growth a t 24 hours on 02/10/2022 at 140 1 CSTPrevious preliminary verified result was No growth a t 48 hours on 02/11/2022 at 140 1 CSTPrevious preliminary verified result was No growth a t 72 hours on 02/12/2022 at 140 1 [employer] Blood No organisms No growth Previous Culture-Anaerobic isolated preliminar y (test code = 24784-7) verifi ed result was Culture In Progress on 02/09/2022 at 170 1 CSTPrevious preliminary verified result was No growth a t 24 hours on 02/10/2022 at 140 1 CSTPrevious preliminary verified result was No growth a t 48 hours on 02/11/2022 at 140 1 CSTPrevious preliminary verified result was No growth a t 72 hours on 02/12/2022 at 140 1 [employer] Lab Interpretation Normal (test code = 92076-7) [facility]2022-02-13 18:21:12 Test Item Value Reference Range Interpretation Comments POCT GLU (test code = 3009640511) 112 mg/dL 70-110 H Lab Interpretation (test code = Abnormal 67477-6) [facility]2022-02-13 12:00:22 Test Item Value Reference Range Interpretation Comments POCT GLU (test code = 103 mg/dL 70-110 Notifi ed Provider [id number]) Lab Interpretation (test Normal code = 26746-2) [facility] 20 + Lactic [id number] 10:22:41 Test Item Value Reference Range Interpretation Comments PH (test code = 2) 7.35-7.45 H PCO2 (test code = See_Comment L [Automate d 7528735616) message] The sy stem which generated this result transmitted reference range : 35 - 45 mmHg. The reference range was not used to interpret this result as normal/abnormal . PO2 (test code = See_Comment L [Automated 4767240359) message] The sy stem which generated this result transmitted reference range : 80 - 100 mmHg. The reference range was not used to interpret this result as normal/abnormal . HCO3 (test code = See_Comment [Automate d 5001701661) message] The sy stem which generated this result transmitted reference range : 22 - 26 mEq/L. The reference range was not used to interpret this result as normal/abnormal . BE (test code = See_Comment [Automated 2506312841) message] The sy stem which generated this result transmitted reference range : -3.0 - 3.0 mEq/ L. The reference r sera was not used to interpret this result as normal/abnormal . THB (test code = 12.5 g/dL 13.5-18.0 L 7727948854) %O2HB (test code = 93.0 % 94.0-99.0 L 9861028781) %COHB ART (test code = 0.1 % 0.0-1.5 3979794028) %METHB ART (test code = 0.1 % 0.4-1.5 L 0984070908) VOL%O2 ART (test code = 16.4 % 15.0-23.0 6432598173) NA (test code = 137 mmol/L 135-145 6920064744) K+ (test code = 3.5 mmol/L 3.5-5.0 4456231767) AC CA IONZ (test code = 4.70 mg/dL 4.50-5.30 2747387729) GLUCOSE (test code = 95 mg/dL 70-110 5407381525) LACTIC ACID (test code 0.80 mmol/L 0.50-2.20 = 2619570084) Lab Interpretation Abnormal (test code = 49106-2) [facility] - Please draw tobramycin trough on 02/12/22 @ 1400 (30-minutes prior to next tobramycin dose) 2022-02-13 08:55:41 Test Item Value Reference Range Interpretation Comments TOBRA T (test code = See_Comment [Autom ated 1329226424) message] The system which generated this result transmit jake reference range : <=2.0. The reference range was not used to interpret this result as normal/abnormal . RANJIT (test code = RANJIT) Toxic Range: ? Greater than 2.0 ug/mL Lab Interpretation Normal (test code = 05820-5) [facility] - Please draw tobramycin peak on 02/12/22 at 1530 (30-minutes AFTER completion of TOBRAMYCIN infusion) 2022-02-13 08:20:50 Test Item Value Reference Range Interpretation Comments TOBRA P (test code = 7.5 ug/mL 5.0-8.0 9938348015) RANJIT (test code = RANJIT) Toxic Range: ? Greater than 10.0 ug/mL Lab Interpretation (test Normal code = 83537-9) [facility] GLUCOSE (AUTOMATED)2022-02-13 06:00:00 Test Item Value Reference Range Interpretation Comments POCT GLU (test code = 95 mg/dL 70-110 Notifi ed Provider [id number]) Lab Interpretation (test Normal code = 02077-1) [facility] GLUCOSE (AUTOMATED)2022-02-12 06:14:23 Test Item Value Reference Range Interpretation Comments POCT GLU (test code = 105 mg/dL 70-110 Notifi ed Provider [id number]) Lab Interpretation (test Normal code = 26799-2) [facility] GLUCOSE (AUTOMATED)2022-02-11 11:59:36 Test Item Value Reference Range Interpretation Comments POCT GLU (test code = 106 mg/dL 70-110 Notifi ed Provider [id number]) Lab Interpretation (test Normal code = 84363-4) [facility] METABOLIC PANEL (NA, K, CL, CO2, GLUCOSE, BUN, CREATININE, CA)2022-02-11 11:02:28 Test Item Value Reference Range Interpretation Comments NA (test code = 142 mmol/L 135-145 5219974888) K (test code = 3.3 mmol/L 3.5-5.0 L 1224691206) CL (test code = 111 mmol/L 98-108 H 9943746803) CO2 TOTAL (test code = 29 mmol/L 23-31 7403505103) AGAP (test code = 2-16 2634644829) BUN (test code = 16 mg/dL 7-23 0483299972) GLUCOSE (test code = 113 mg/dL 70-110 H 2353762759) CREATININE (test code = 0.51 mg/dL 0.60-1.25 L 8956225703) CALCIUM (test code = 7.7 mg/dL 8.6-10.6 L 4197262934) eGFR (test code = mL/min/1.73m2 7927882042) RANJIT (test code = RANJIT) Association of Glomerular Filtration Rate (GFR) and Staging of Kidney Disease* + --+ --+ ------+| GFR (mL/min/1.73 m2) ?| With Kidney Damage ?| ?Without Kidney Damage+ --------+ --------+ +| ?>90 ?| ?Stage one ?| ? Normal ?+ ---+ ---+ -------+| ?60-89 ?| ?Stage two ?| ? Decreased GFR ? + --+ --+ ------+| ?30-59 ?| ?Stage three ?| ? Stage three ? + --+ --+ ------+| ?15-29 ?| ?Stage four ? | ? Stage four ?+ ---+ ---+ -------+| ?<15 (or dialysis) ? ?| ?Stage five ? | ? Stage five ?+ ---+ ---+ -------+ *Each stage assumes the associated GFR level has been in effect for at least three months. ?Stages 1 to 5, with or without kidney disease, indicate chronic kidney disease. Notes: Determination of stages one and two (with eGFR >59mL/min/1.73 m2) requires estimation of kidney damage for at least three months as defined by structural or functional abnormalities of the kidney, manifested by either:Pathological abnormalities or Markers of kidney damage (including abnormalities in the composition of the blood or urine or abnormalities in imaging tests). Lab Interpretation Abnormal (test code = 45011-4) [facility] WITHOUT [id number] 10:48:46 Test Item Value Reference Range Interpretation Comments WBC (test code = 6690-2) See_Comment H [A utomated message] The system [employer] generated this result transmit jake reference range : 4.20 - 10.70 10*3/?L. The reference range was not used to interpret this result as normal/abnormal . RBC (test code = 789-8) See_Comment L [Au tomated message] The system [employer] generated this result transmit jake reference range : 4.26 - 5.52 10* 6/?L. The reference r sera was not used to interpret this result as normal/abnormal . HGB (test code = 718-7) 10.9 g/dL 12.2-16.4 L HCT (test code = 4544-3) 32.5 % 38.4-49.3 L MCH (test code = 785-6) 31.2 pg 26.1-32.7 MCV (test code = 787-2) 93.1 fL 81.7-95.6 MCHC (test code = 786-4) 33.5 g/dL 31.2-35.0 PLT (test code = 777-3) See_Comment [Au tomated message] The system [employer] generated this result transmit jake reference range : 150 - 328 10*3/?L. The reference range was not used to interpret this result as normal/abnormal . MPV (test code = 10.2 fL 9.8-13.0 22029-0) RDW-CV (test code = 12.4 % 12.1-15.4 788-0) RDW-SD (test code = 42.1 fL 38.5-51.6 67072-6) NRBC x10^3 (test code = See_Comment [Au tomated message] 2874991459) The system [employer] generated this result transmit jake reference range : 10*3/?L. The reference range was not used to interpret this result as normal/abnormal . NRBC/100 WBC (test code See_Comment [Au tomated message] = 6668938717) The system [employer] generated this result transmit jake reference range : 0.0 - 10.0 /100 WBC s. The reference r sera was not used to interpret this result as normal/abnormal . IPF % (test code = 9269458964) Lab Interpretation (test Abnormal code = 04084-5) [facility] - Please draw a Vancomycin trough on _02/11/22_?@ _00:894817-60-90 07:20:25 Test Item Value Reference Range Interpretation Comments VANCO TROUGH (test code 6.3 ug/mL 10.0-20.0 L = 0232505888) RANJIT (test code = RANJIT) Toxic Range: ?>20 ug/mL 15-20 ug/mL is recommended for severe infection or when Vancomycin LINDA is greater than or equal to 2. Lab Interpretation (test Abnormal code = 71842-9) [facility] GLUCOSE (AUTOMATED)2022-02-11 05:58:50 Test Item Value Reference Range Interpretation Comments POCT GLU (test code = 120 mg/dL 70-110 H Notifi ed Provider [id number]) Lab Interpretation (test Abnormal code = 08367-6) [facility] GLUCOSE (AUTOMATED)2022-02-10 12:18:20 Test Item Value Reference Range Interpretation Comments POCT GLU (test code = 122 mg/dL 70-110 H Notifi ed Provider [id number]) Lab Interpretation (test Abnormal code = 65781-7) [facility] GLUCOSE (AUTOMATED)2022-02-10 06:16:43 Test Item Value Reference Range Interpretation Comments POCT GLU (test code = 127 mg/dL 70-110 H Notifi ed Provider [id number]) Lab Interpretation (test Abnormal code = 49624-8) [facility] 23:58:33 Test Item Value Reference Interpretation Comments Range Procalcitonin (test 0.43 ng/mL See_Comment H [Automa jake code = 4800132650) message] The system which generated this result transmitted reference range: <=0.08. The reference range was not used to interpret this result as normal/abnormal . RANJIT (test code = INTERPRETATION OF RANJIT) PROCALCITONIN RESULTS IN ADULTS >= 18 YEARS OF AGE Initiation and discontinuation of antibiotics on patients with suspected or confirmed Lower Respiratory Tract Infection in Adults >= 18 years of age. + +------ + ----+ +|Procalcit onin |Interpretation ?|Antibiotic ? ? |Considerations ? |ng/mL ? | ?|recommendation | ? + +------ + ----+ +| <0.1 ? | Bacterial ? ? ?| Strongly ? ? ?| ? | ?| infection very | discouraged ? | Overruling: ? | ?| unlikely ? ? ? | ? | ? Clinically unstable ? ? ? + +------ + ----+ ? High risk for adverse ? ? | <0.25 ?| Bacterial ? ? ?| Discouraged ? | ? outcome ? | ?| infection ? ? ?| ? | ? SEE IMPORTANT NOTE ?| ?| unlikely ? ? ? | ? | ? + +------ + ----+ +| >=0.25 ? ? ? | Bacterial ? ? ?| Encouraged ? ?| ? | ?| infection ? ? ?| ? | ? | ?| likely ? | ? | Consider treatment failure ?+ +----- + -----+ if levels does not decrease | >0.5 ? | Bacterial ? ? ?| Strongly ? ? ?| appropriately ? | ?| infection very | encouraged ? ?| ? | ?| likely ? | ? | ? + +------ + ----+ + Discontinuation of antibiotics in high-acuity patients with suspected or confirmed sepsis in Adults >= 18 years of age. + +------ + ----+ +|Procalcit onin |Interpretation ?|Antibiotic ? ? |Considerations ? |ng/mL ? | ?|recommendation | ? + +------ + ----+ +| <0.25 ?| Bacterial ? ? ?| Strongly ? ? ?| ? | ?| infection very | discouraged ? | Overruling: ? | ?| unlikely ? ? ? | ? | ? Clinically unstable ? ? ? + +------ + ----+ ? High risk for adverse ? ? | <0.5 or drop | Bacterial ? ? ?| Discouraged ? | ? outcome ? | >80% from ? ?| infection ? ? ?| ? | ? SEE IMPORTANT NOTE ?| highest PCT ?| unlikely ? ? ? | ? | ? | level ?| ?| ? | ? + +------ + ----+ +| >=0.5 ?| Bacterial ? ? ?| Encouraged ? ?| ? | ?| infection ? ? ?| ? | ? | ?| likely ? | ? | Consider treatment failure ?+ +----- + -----+ if levels does not decrease | >1.0 ? | Bacterial ? ? ?| Strongly ? ? ?| appropriately ? | ?| infection very | encouraged ? ?| ? | ?| likely ? | ? | ? + +------ + ----+ + Percentage of drop of Procalcitonin calculation for Discontinuation of antibiotics in high-acuity patients with suspected or confirmed sepsis in Adults >= 18 years of age. ? Procalcitonin highest{}-Procalcitoni n current{}Delta Procalcitonin = ___ x100% ? Procalcitonin current {} IMPORTANT NOTE: Procalcitonin may be elevated without bacterial infection by physiologic stress related to trauma, marks, chronic dialysis, metastatic cancer, surgery in the past seven days, malaria, some fungal infections, and some forms of vasculitis. The interpretation algorithm may not apply to patients with immunosuppression (equivalent of >10 mg of prednisone daily), HIV with CD4 cell count < 350 cells/mm3, active malignancy on systemic chemotherapy, solid organ transplant or hematopoietic stem cell transplantation, or hospital acquired pneumonia. Additionally, some clinical trials of procalcitonin have excluded patients with shock requiring vasopressor use, acute respiratory failure requiring mechanical ventilation, or those with known lung abscess/empyema. For further information please refer to:[email or web address] Lab Interpretation Abnormal (test code = 37201-5) [facility] + Lactic [id number] 11:17:36 Test Item Value Reference Range Interpretation Comments PH (test code = 2) 7.35-7.45 H PCO2 (test code = See_Comment L [Automate d 1326230933) message] The sy stem which generated this result transmitted reference range : 35 - 45 mmHg. The reference range was not used to interpret this result as normal/abnormal . PO2 (test code = See_Comment H [Automated [id number]) message] The sy stem which generated this result transmitted reference range : 80 - 100 mmHg. The reference range was not used to interpret this result as normal/abnormal . HCO3 (test code = See_Comment [Automate d 2301313590) message] The sy stem which generated this result transmitted reference range : 22 - 26 mEq/L. The reference range was not used to interpret this result as normal/abnormal . BE (test code = See_Comment H [Automated 7282136256) message] The sy stem which generated this result transmitted reference range : -3.0 - 3.0 mEq/ L. The reference r sera was not used to interpret this result as normal/abnormal . THB (test code = 12.2 g/dL 13.5-18.0 L 1061638573) %O2HB (test code = 98.2 % 94.0-99.0 1440085376) %COHB ART (test code = 0.3 % 0.0-1.5 5587387695) %METHB ART (test code = 0.3 % 0.4-1.5 L 2323605050) VOL%O2 ART (test code = 17.1 % 15.0-23.0 2554677207) NA (test code = 149 mmol/L 135-145 H 4012640046) K+ (test code = 3.0 mmol/L 3.5-5.0 L 6675733078) AC CA IONZ (test code = 4.70 mg/dL 4.50-5.30 1254934272) GLUCOSE (test code = 131 mg/dL 70-110 H 5500755249) LACTIC ACID (test code 1.04 mmol/L 0.50-2.20 = 6810685959) Lab Interpretation Abnormal (test code = 44401-5) [facility] 20:40:20 Test Item Value Reference Range Interpretation Comments Height (test code = in 8935972978) Weight (test code = lbs 2118514489) Systolic BP (test code = mmHg 4825329196) Diastolic BP (test code mmHg = 1134114974) Heart Rate (test code = bpm 0706885860) BSA (test code = 1.73 m2 1661631182) IVS (test code = 0.96 cm 8485269843) Interventricular Septum 0.96 cm Diastolic Thickness by 2D (test code = 7816622) LVIDD (test code = 2.70 cm 7122947035) Left Ventricular End 27.6 mL Diastolic Volume by Teichholz Method (test code = 9824675) LVPWD (test code = 1.14 cm 8431552166) PW (test code = 1.14 cm 0.6-1.1 3411213935) EF(Teich) (test code = 50.10 % 6152925371) LVIDS (test code = 2.06 cm 3395861565) Left Ventricular End 13.8 mL Systolic Volume by Teichholz Method (test code = 4860831) FS (test code = 24 % 5930182249) EF - 2D (test code = 50.10 % 87373413) LVOT diameter (test code 2.19 cm = 4629615068) LVOT area (test code = 3.80 cm2 7545222293) Ao root diam (test code 3.30 cm = 1016808606) Aortic root (test code = 3.3 cm 9410770236) Ao root annulus (test 3.3 cm code = 7029616195) LA size (test code = 3.0 cm 0113330184) LAV(MOD-sp4) (test code 16.90 mL = 9759700448) MV Prop V (test code = 41.80 cm/s 7522040511) Tapse (test code = 1.48 cm 2944161646) LVOT stroke volume (test 47.10 cm3 code = 9176144053) LVOT peak debby (test code 88.5 cm/s = 7125447265) LVOT mn grad (test code mmHg = 6851369296) AV LVOT peak gradient mmHg (test code = 5626962297) LVOT peak VTI (test code 12.5 cm = 2648820459) LV V1 mean (test code = 53.00 cm/s 3473733973) Aortic valve mean 87.8 cm/s velocity (test code = 1188965681) Ao peak debby (test code = 145.3 cm/s 4717498662) Ao VTI (test code = 17.3 cm 3369298157) AV area by cont VTI 2.7 cm2 (test code = 8555900398) AV area peak debby (test 2.3 cm2 code = 9532408021) Ao max PG (test code = 8.40 mm[Hg] 5575090174) AV peak gradient (test mmHg code = 1393054690) AV valve area (test code 2.70 cm2 = 8654623963) AV mean gradient (test mmHg code = 0521921896) Radiology Study observation (narrative) (test code = 48533-4) RANJIT (test code = RANJIT) ?Left?Ventricle: Mild global hypokinesis present. Low normal systolic function with a visually estimated EF of 50 - 55%. ?Right?Ventricle: Low normal systolic function. TAPSE is 1.48 cm. ?No valvular abnormalities. ?No pericardial effusion. Left VentricleLeft ventricle size is normal. Normal wall thickness. Mild global hypokinesis present. Low normal systolic function with a visually estimated EF of 50 - 55%. Unable to assess diastolic function due to tachycardia.Right VentricleRight ventricle size is normal. Low normal systolic function. TAPSE is 1.48 cm.Left AtriumLeft atrium size is normal.Right AtriumNot well visualized.IVC/SVCIVC was not visualized. SVC was not assessed due to poor image quality.Mitral ValveMitral valve structure is normal.Tricuspid ValveNot well visualized. No transvalvular regurgitation.Aortic ValveAortic valve is normal in structure and function.Pulmonic ValveNot well visualized. No transvalvular regurgitation. No stenosis.Ascending AortaNormal sized aorta.PericardiumThe pericardium is normal. No pericardial effusion.Study DetailsStudy quality was adequate. A complete echocardiogram was performed using 2D. [facility] GLUCOSE (AUTOMATED)2022-02-07 17:54:37 Test Item Value Reference Range Interpretation Comments POCT GLU (test code = 103 mg/dL 70-110 Notifi ed Provider [id number]) Lab Interpretation (test Normal code = 70205-1) [facility] GLUCOSE (AUTOMATED)2022-02-06 23:21:07 Test Item Value Reference Range Interpretation Comments POCT GLU (test code = 7585422012) 97 mg/dL 70-110 Lab Interpretation (test code = Normal 78739-1) [facility] GLUCOSE (AUTOMATED)2022-02-06 17:47:39 Test Item Value Reference Range Interpretation Comments POCT GLU (test code = 6660570018) 84 mg/dL 70-110 Lab Interpretation (test code = Normal 75330-1) [facility] METABOLIC PANEL (NA, K, CL, CO2, GLUCOSE, BUN, CREATININE, CA)2022-02-05 10:52:59 Test Item Value Reference Range Interpretation Comments NA (test code = 150 mmol/L 135-145 H 3213052628) K (test code = 3.2 mmol/L 3.5-5.0 L 8714233559) CL (test code = 118 mmol/L 98-108 H 3241201734) CO2 TOTAL (test code = 26 mmol/L -31 4035755226) AGAP (test code = 2-16 1393054121) BUN (test code = 25 mg/dL 7-23 H 4295355209) GLUCOSE (test code = 123 mg/dL 70-110 H 4407048862) CREATININE (test code = 0.61 mg/dL 0.60-1.25 4847785957) CALCIUM (test code = 8.7 mg/dL 8.6-10.6 4492846990) eGFR (test code = mL/min/1.73m2 6126255811) RANJIT (test code = RANJIT) Association of Glomerular Filtration Rate (GFR) and Staging of Kidney Disease* + --+ --+ ------+| GFR (mL/min/1.73 m2) ?| With Kidney Damage ?| ?Without Kidney Damage+ --------+ --------+ +| ?>90 ?| ?Stage one ?| ? Normal ?+ ---+ ---+ -------+| ?60-89 ?| ?Stage two ?| ? Decreased GFR ? + --+ --+ ------+| ?30-59 ?| ?Stage three ?| ? Stage three ? + --+ --+ ------+| ?15-29 ?| ?Stage four ? | ? Stage four ?+ ---+ ---+ -------+| ?<15 (or dialysis) ? ?| ?Stage five ? | ? Stage five ?+ ---+ ---+ -------+ *Each stage assumes the associated GFR level has been in effect for at least three months. ?Stages 1 to 5, with or without kidney disease, indicate chronic kidney disease. Notes: Determination of stages one and two (with eGFR >59mL/min/1.73 m2) requires estimation of kidney damage for at least three months as defined by structural or functional abnormalities of the kidney, manifested by either:Pathological abnormalities or Markers of kidney damage (including abnormalities in the composition of the blood or urine or abnormalities in imaging tests). Lab Interpretation Abnormal (test code = 97090-3) [facility]52[facility]59 Test Item Value Reference Range Interpretation Comments MAGNESIUM (test code = 0976908458) 1.9 mg/dL 1.7-2.4 Lab Interpretation (test code = Normal 46040-1) [facility] WITHOUT [id number] 10:38:38 Test Item Value Reference Range Interpretation Comments WBC (test code = 6690-2) See_Comment H [A utomated message] The system Instagram generated this result transmit jake reference range : 4.20 - 10.70 10*3/?L. The reference range was not used to interpret this result as normal/abnormal . RBC (test code = 789-8) See_Comment [Au tomated message] The system [facility] generated this result transmit jake reference range : 4.26 - 5.52 10* 6/?L. The reference r sera was not used to interpret this result as normal/abnormal . HGB (test code = 718-7) 13.4 g/dL 12.2-16.4 HCT (test code = 4544-3) 41.2 % 38.4-49.3 MCH (test code = 785-6) 31.3 pg 26.1-32.7 MCV (test code = 787-2) 96.3 fL 81.7-95.6 H MCHC (test code = 786-4) 32.5 g/dL 31.2-35.0 PLT (test code = 777-3) See_Comment [Au tomated message] The system [facility] generated this result transmit jake reference range : 150 - 328 10*3/?L. The reference range was not used to interpret this result as normal/abnormal . MPV (test code = 10.5 fL 9.8-13.0 48602-0) RDW-CV (test code = 13.2 % 12.1-15.4 788-0) RDW-SD (test code = 46.9 fL 38.5-51.6 09544-4) NRBC x10^3 (test code = See_Comment [Au tomated message] 4472290206) The system [facility] generated this result transmit jake reference range : 10*3/?L. The reference range was not used to interpret this result as normal/abnormal . NRBC/100 WBC (test code See_Comment [Au tomated message] = 4736930115) The system [facility] generated this result transmit jake reference range : 0.0 - 10.0 /100 WBC s. The reference r sera was not used to interpret this result as normal/abnormal . IPF % (test code = 2272872387) Lab Interpretation (test Abnormal code = 68038-9) [facility] + LACTIC [id number] 10:36:21 Test Item Value Reference Range Interpretation Comments PH (test code = 2) 7.35-7.45 PCO2 (test code = See_Comment [Automate d 6050575889) message] The sy stem which generated this result transmitted reference range : 35 - 45 mmHg. The reference range was not used to interpret this result as normal/abnormal . PO2 (test code = See_Comment H [Automated 6326393768) message] The sy stem which generated this result transmitted reference range : 80 - 100 mmHg. The reference range was not used to interpret this result as normal/abnormal . HCO3 (test code = See_Comment [Automate d 8901489317) message] The sy stem which generated this result transmitted reference range : 22 - 26 mEq/L. The reference range was not used to interpret this result as normal/abnormal . BE (test code = See_Comment [Automated 2091461029) message] The sy stem which generated this result transmitted reference range : -3.0 - 3.0 mEq/ L. The reference r sera was not used to interpret this result as normal/abnormal . LACTIC ACID (test code 1.28 mmol/L 0.50-2.20 = 1481399054) Lab Interpretation Abnormal (test code = 11413-6) [facility] [id number] 19:14:19 Test Item Value Reference Range Interpretation Comments PH (test code = 2) 7.35-7.45 H PCO2 (test code = See_Comment [Automate d 3672014442) message] The sy stem which generated this result transmitted reference range : 35 - 45 mmHg. The reference range was not used to interpret this result as normal/abnormal . PO2 (test code = See_Comment H [Automated 8970758736) message] The sy stem which generated this result transmitted reference range : 80 - 100 mmHg. The reference range was not used to interpret this result as normal/abnormal . HCO3 (test code = See_Comment H [Automate d 7005336219) message] The sy stem which generated this result transmitted reference range : 22 - 26 mEq/L. The reference range was not used to interpret this result as normal/abnormal . BE (test code = See_Comment H [Automated 8472875407) message] The sy stem which generated this result transmitted reference range : -3.0 - 3.0 mEq/ L. The reference r sera was not used to interpret this result as normal/abnormal . LACTIC ACID (test code 2.00 mmol/L 0.50-2.20 = 6660097425) Lab Interpretation Abnormal (test code = 39471-6) [facility] + Lactic [id number] 17:32:01 Test Item Value Reference Range Interpretation Comments PH (test code = 2) 7.35-7.45 H PCO2 (test code = See_Comment L [Automate d 6447993149) message] The sy stem which generated this result transmitted reference range : 35 - 45 mmHg. The reference range was not used to interpret this result as normal/abnormal . PO2 (test code = See_Comment L [Automated 6273148035) message] The sy stem which generated this result transmitted reference range : 80 - 100 mmHg. The reference range was not used to interpret this result as normal/abnormal . HCO3 (test code = See_Comment [Automate d 1343201673) message] The sy stem which generated this result transmitted reference range : 22 - 26 mEq/L. The reference range was not used to interpret this result as normal/abnormal . BE (test code = See_Comment H [Automated 9777656649) message] The sy stem which generated this result transmitted reference range : -3.0 - 3.0 mEq/ L. The reference r sera was not used to interpret this result as normal/abnormal . THB (test code = 15.8 g/dL 13.5-18.0 2436620242) %O2HB (test code = 94.9 % 94.0-99.0 2800359576) %COHB ART (test code = 0.6 % 0.0-1.5 4394502020) %METHB ART (test code = 0.2 % 0.4-1.5 L 1351434910) VOL%O2 ART (test code = 21.1 % 15.0-23.0 8184712190) NA (test code = 149 mmol/L 135-145 H 7623294438) K+ (test code = 2.9 mmol/L 3.5-5.0 LL 7639387565) AC CA IONZ (test code = 5.00 mg/dL 4.50-5.30 2601246043) GLUCOSE (test code = 129 mg/dL 70-110 H 1828085382) LACTIC ACID (test code 1.95 mmol/L 0.50-2.20 = 7229603893) Lab Interpretation Abnormal (test code = 57236-5) [facility]+K+GLU+CA2+2022-02-04 15:45:44 Test Item Value Reference Range Interpretation Comments PH (test code = 2) 7.35-7.45 H PCO2 (test code = See_Comment L [Automate d message] 9476861946) The system Instagram generated this result transmit jake reference range : 35 - 45 mmHg. The reference range was not used to interpret this result as normal/abnormal . PO2 (test code = See_Comment LL [Automated message] 0509936285) The system Instagram generated this result transmit jake reference range : 80 - 100 mmHg. The reference range was not used to interpret this result as normal/abnormal . HCO3 (test code = See_Comment H [Automate d message] 7408883875) The system Instagram generated this result transmit jake reference range : 22 - 26 mEq/L. The reference range was not used to interpret this result as normal/abnormal . BE (test code = See_Comment H [Automated message] 7822423253) The system Instagram generated this result transmit jake reference range : -3.0 - 3.0 mEq/ L. The reference r sera was not used to interpret this result as normal/abnormal . THB (test code = 15.9 g/dL 13.5-18.0 3258990862) %O2HB (test code = 79.4 % 94.0-99.0 L 0482471266) %COHB ART (test code = 0.7 % 0.0-1.5 6865771808) %METHB ART (test code = 0.2 % 0.4-1.5 L 1711715211) VOL%O2 ART (test code = 17.7 % 15.0-23.0 4413625218) NA (test code = 149 mmol/L 135-145 H 6127911283) K+ (test code = 3.0 mmol/L 3.5-5.0 L 4313258819) AC CA IONZ (test code = 5.00 mg/dL 4.50-5.30 8849327124) GLUCOSE (test code = 118 mg/dL 70-110 H 5257028896) Lab Interpretation Abnormal (test code = 58720-8) [facility] GLUCOSE (AUTOMATED)2022-02-04 14:55:23 Test Item Value Reference Range Interpretation Comments POCT GLU (test code = 0843115907) 120 mg/dL 70-110 H Lab Interpretation (test code = Abnormal 19363-4) [facility] GLUCOSE (AUTOMATED)2022-02-04 14:45:07 Test Item Value Reference Range Interpretation Comments POCT GLU (test code = 9073991960) 117 mg/dL 70-110 H Lab Interpretation (test code = Abnormal 32536-6) [facility] GLUCOSE (AUTOMATED)2022-02-04 02:42:26 Test Item Value Reference Range Interpretation Comments POCT GLU (test code = 1395713605) 102 mg/dL 70-110 Lab Interpretation (test code = Normal 62260-4) [facility] GLUCOSE (AUTOMATED)2022-02-03 22:08:13 Test Item Value Reference Range Interpretation Comments POCT GLU (test code = 4385237839) 113 mg/dL 70-110 H Lab Interpretation (test code = Abnormal 87380-6) [facility] GLUCOSE (AUTOMATED)2022-02-03 17:38:52 Test Item Value Reference Range Interpretation Comments POCT GLU (test code = 8625623757) 111 mg/dL 70-110 H Lab Interpretation (test code = Abnormal 12629-2) [facility] GLUCOSE (AUTOMATED)2022-02-03 14:05:20 Test Item Value Reference Range Interpretation Comments POCT GLU (test code = 7044021636) 112 mg/dL 70-110 H Lab Interpretation (test code = Abnormal 41337-2) [facility] GLUCOSE (AUTOMATED)2022-02-03 02:50:27 Test Item Value Reference Range Interpretation Comments POCT GLU (test code = 0553085067) 98 mg/dL 70-110 Lab Interpretation (test code = Normal 23627-1) [facility]CA2+2022-02-02 20:39:05 Test Item Value Reference Range Interpretation Comments PH (test code = 2) 7.35-7.45 H PCO2 (test code = See_Comment L [Automate d message] 5378947717) The system [employer] generated this result transmit jake reference range : 35 - 45 mmHg. The reference range was not used to interpret this result as normal/abnormal . PO2 (test code = See_Comment L [Automated message] 4975712145) The system [employer] generated this result transmit jake reference range : 80 - 100 mmHg. The reference range was not used to interpret this result as normal/abnormal . HCO3 (test code = See_Comment [Automate d message] 9736791175) The system [employer] generated this result transmit jake reference range : 22 - 26 mEq/L. The reference range was not used to interpret this result as normal/abnormal . BE (test code = See_Comment [Automated message] 9424041209) The system [employer] generated this result transmit jake reference range : -3.0 - 3.0 mEq/ L. The reference r sera was not used to interpret this result as normal/abnormal . THB (test code = 15.4 g/dL 13.5-18.0 2609113475) %O2HB (test code = 91.1 % 94.0-99.0 L 4690465749) %COHB ART (test code = 0.7 % 0.0-1.5 2425460343) %METHB ART (test code = 0.0 % 0.4-1.5 L 7590136441) VOL%O2 ART (test code = 0.0 % 15.0-23.0 L 8396061725) NA (test code = 140 mmol/L 135-145 3099993051) K+ (test code = 4.1 mmol/L 3.5-5.0 3878544448) AC CA IONZ (test code = 4.70 mg/dL 4.50-5.30 4582700469) GLUCOSE (test code = 102 mg/dL 70-110 9864248411) Lab Interpretation Abnormal (test code = 34869-0) [facility] + Lactic [id number] 16:09:22 Test Item Value Reference Range Interpretation Comments PH (test code = 2) 7.35-7.45 H PCO2 (test code = See_Comment L [Automate d 8018334321) message] The sy stem which generated this result transmitted reference range : 35 - 45 mmHg. The reference range was not used to interpret this result as normal/abnormal . PO2 (test code = See_Comment L [Automated 4452924872) message] The sy stem which generated this result transmitted reference range : 80 - 100 mmHg. The reference range was not used to interpret this result as normal/abnormal . HCO3 (test code = See_Comment [Automate d 5195665861) message] The sy stem which generated this result transmitted reference range : 22 - 26 mEq/L. The reference range was not used to interpret this result as normal/abnormal . BE (test code = See_Comment H [Automated 7715430435) message] The sy stem which generated this result transmitted reference range : -3.0 - 3.0 mEq/ L. The reference r sera was not used to interpret this result as normal/abnormal . THB (test code = 15.6 g/dL 13.5-18.0 9583930844) %O2HB (test code = 88.0 % 94.0-99.0 L 1573260710) %COHB ART (test code = 0.7 % 0.0-1.5 1329250664) %METHB ART (test code = 0.3 % 0.4-1.5 L 6887788047) VOL%O2 ART (test code = 19.2 % 15.0-23.0 1740310150) NA (test code = 140 mmol/L 135-145 3003895386) K+ (test code = 4.1 mmol/L 3.5-5.0 3684623424) AC CA IONZ (test code = 4.70 mg/dL 4.50-5.30 6923787106) GLUCOSE (test code = 102 mg/dL 70-110 9864926358) LACTIC ACID (test code 1.84 mmol/L 0.50-2.20 = 5753692963) Lab Interpretation Abnormal (test code = 51236-5) [facility] GLUCOSE (AUTOMATED)2022-02-02 14:44:12 Test Item Value Reference Range Interpretation Comments POCT GLU (test code = 2010419875) 93 mg/dL 70-110 Lab Interpretation (test code = Normal 78251-6) [facility]-GLUCOSE [id number] 05:32:00 Test Item Value Reference Range Interpretation Comments POC-GLUCOSE METER 100 mg/dL 70-110 TESTED AT [facility] [address] (BEAKER) (test code [facility] = [address]38) [place] [address] [id number] 04:38:00 Test Item Value Reference Range Interpretation Comments PHOSPHORUS (BEAKER) (test code = 4.1 mg/dL 2.5-4.5 604) [id number] 04:38:00 Test Item Value Reference Range Interpretation Comments MAGNESIUM (BEAKER) (test code = 1.9 mg/dL 1.5-3.0 627) BASIC METABOLIC [id number] 04:38:00 Test Item Value Reference Range Interpretation [...] PATIEN TS. CBC W/PLT COUNT & AUTO [id number] 04:13:00 Test Item Value Reference Range Interpretation [...] L 0.00-0.20 (test code = 417) POCT-GLUCOSE [id number] 20:18:00 Test Item Value Reference Range Interpretation Comments POC-GLUCOSE METER 88 mg/dL 70-110 TESTED AT [facility] [address] (BEAKER) (test code = [facility] [address]) [place] [address] POCT-GLUCOSE [id number] 18:01:00 Test Item Value Reference Range Interpretation Comments POC-GLUCOSE METER 104 mg/dL 70-110 TESTED AT [facility] [address] (BEAKER) (test code BOO [facility] = 1538) [place] [address] POCT-GLUCOSE [id number] 13:13:00 Test Item Value Reference Range Interpretation Comments POC-GLUCOSE METER 74 mg/dL 70-110 TESTED AT [facility] [address] [address] (BEAKER) (test code = BOO [facility] 1538) [place] [address] URINALYSIS W/ REFLEX URINE [id number] 02:14:00 Test Item Value Reference Range Interpretation [...] code = 1584) SOURCE(BEAKER) (test code = 2309) TROPONIN [id number] 00:41:00 Test Item Value Reference Range Interpretation [...] acute neurological disease, and persistent tachyarrhythmia.BASIC METABOLIC [id number] 00:37:00 Test Item Value Reference Range Interpretation [...] m DATA TO CALCULA TE ESTIMATED GFR. [id number] 00:33:00 Test Item Value Reference Range Interpretation Comments MAGNESIUM (BEAKER) 2.3 mg/dL 1.5-3.0 Specimen slightly (test code = 627) hemolyzed [id number] 00:33:00 Test Item Value Reference Range Interpretation Comments PHOSPHORUS (BEAKER) 3.8 mg/dL 2.5-4.5 Specimen slightly (test code = 604) hemolyzed CBC W/PLT COUNT & AUTO [id number] 00:18:00 Test Item Value Reference Range Interpretation [...] = 417) RAD, CHEST, 1 VIEW, NON [id number] 00:09:00Reason for exam:->ALTERED MENTAL STATUSShould this be [...] Sterling Verified Date/Time: 09/04/2017 00:09:13 Reading Location: [facility] Reading Room CT, BRAIN, WITHOUT [id number] 00:01:00Reason for exam:- >ALTERED MENTAL STATUSWhat is [...] MDReport Verified Date/Time: 09/04/2017 00:01:45 Reading Location: [address] Reading Room "
[2022-10-12] MEDS ORDERED: ALBUTEROL 2.5 MG/3 ML NEB SOL ONE (02:08)
[2022-10-12] MEDS ORDERED: IPRATROPIUM BROM 0.5MG/2.5ML ONE (02:08)
[2022-10-12] MEDS ORDERED: NA CHLORIDE 0.9% 1,000 ML ONE ×2 (02:09→10:19)
[2022-10-12] MEDS ORDERED: PIPERACIL/TAZO 3.375 GM VIAL IV ONE ×2 (02:09→10:19)
[2022-10-12] MEDS ORDERED: NA CHLORIDE 0.9% 100 ML ONE ×2 (02:09→10:19)
[2022-10-12 02:16] LABS: Absolute Lymphocytes (CBC) 0.6 K/uL (0.7-4.9); Hematocrit 48.4 % (39.6-49.0); Lymphocytes % 2.9 % (15.3-44.8); MCV 90.6 fL (80-100); MPV 9.4 fL (7.6-11.3); Platelets 209 thou/uL (152-406); Protime INR 1.08; RBC Red Blood Cell Count 5.35 M/uL (4.33-5.43)
--- NOTE | 2022-10-12 02:34 | ER ---
Nurse's Notes [facility] Name: Elliot Hathaway Age: 62 yrs Sex: Male : 1960 Arrival Date: 10/12/2022 Time: 00:27 Bed 4 Private MD: Diagnosis: Pneumonia, unspecified organism-aspiration;Hypoxemia;Tracheostomy status;Elevated white blood cell count;Severe sepsis without septic shock;Abdominal tenderness;Abnormal findings on diagnostic imaging of other abdominal regions, including retroperitoneum-trace pneumoperitoneum Presentation: 10/12 00:33 Chief complaint: EMS states: Patient arrived from [facility] via ha1 [facility], C/O possible aspiration with tachypnea and 02 sat's 84% on RA PREPLEATER, S/P patient was vomiting today, 02 sat's improved to 100's with 10LNC blow by trach. 00:33 Coronavirus screen: At this time, the client does not indicate any symptoms associated ha1 with coronavirus-19. Ebola Screen: Patient negative for fever greater than or equal to 101.5 degrees Fahrenheit, and additional compatible Ebola Virus Disease symptoms. Initial Sepsis Screen: Does the patient meet any 2 criteria? RR > 20 per min. HR > 90 bpm. Yes Does the patient have a suspected source of infection? Yes: Other: possible aspiration If YES to both, name of provider notified: Harry Owusu MD. Risk Assessment: Do you want to hurt yourself or someone else? Unable to obtain. 00:33 Method Of Arrival: EMS: [facility] ha1 00:33 Acuity: KRISTINE 2 ha1 Triage Assessment: 00:33 General: Appears uncomfortable, Behavior is calm. Pain: Unable to use pain scale. FLACC ha1 scale score is 1 out of 10. Neuro: Level of Consciousness is awake, alert, Oriented to person. Cardiovascular: Capillary refill < 3 seconds. Respiratory: Airway via trache Respiratory effort is even, Respiratory pattern is tachypnea. GI: Abdomen is flat. Derm: Skin is pale. Musculoskeletal: Range of motion: limited in all extremities. Historical: - Allergies: 09:38 No Known Allergies; jl7 - PMHx: 02:07 Anxiety; chronic respiratory failure with hypoxia; DYSPHAGIA; GASTROSTOMY; HEART ha1 FAILURE; hemiplegia; Hyperlipidemia; MRSA; Seizures; brain injury; - PSHx: 02:07 gastric tube; ha1 - Immunization history:: Adult Immunizations unknown. - Social history:: Smoking status: unknown. - Family history:: not pertinent. Screenin:35 [facility] ED Fall Risk Assessment (Adult) History of falling in the last 3 months, pf1 including since admission No falls in past 3 months (0 pts) Confusion or Disorientation Yes (5 pts) Intoxicated or Sedated No (0 pts) Impaired Gait Yes (1 pt) Mobility Assist Device Used Yes (1 pt) Altered Elimination Yes (1 pt) Score/Fall Risk Level 3 or more points = High Risk Oriented to surroundings, Maintained a safe environment, Educated pt \T\ family on fall prevention, incl call for assistance when getting out of bed, Assessed \T\ reinforced patient's understanding of fall precautions, Provided non-skid footwear, Hourly rounding (assess needs \T\ fall precautionary measures) done, Used ambulatory aids as needed (educated on \T\ assisted with), Used gait belt as appropriate Implemented a Fall Risk Plan of Care, Apply high fall risk patient identification: yellow non skid footwear/ fall signage, Offered frequent toileting (1:1 observation), Remained with patient while ambulating, Utilized family, sitter, or virtual measuring machine tender as indicated. 06:26 Abuse screen: Denies threats or abuse. Nutritional screening: No deficits noted. pf1 Tuberculosis screening: No symptoms or risk factors identified. Assessment: 00:33 Reassessment: see triage assessment. ha1 04:00 Reassessment: Patient and/or family updated on plan of care and expected duration. Pain ha1 level reassessed. 05:00 Reassessment: Patient and/or family updated on plan of care and expected duration. Pain ha1 level reassessed. 06:00 Reassessment: Patient appears in no apparent distress at this time. Patient and/or pf1 family updated on plan of care and expected duration. Pain level reassessed. Patient states symptoms have improved. 10:33 Reassessment: Placed patient in hospital bed on waffle mattress. Changed linen, cleaned ld1 of incontinence, provided warm blankets, repositioned in bed. Vital Signs: 00:33 BP 92 / 75; Pulse 96; Resp 48; Temp 96.6(A); Pulse Ox 100% on trach mask blow by; ha1 Weight 70.76 kg; 01:00 BP 92 / 75; Pulse 96; Resp 48 S; Pulse Ox 97% on 9 lpm Simple Mask; ha1 02:00 BP 125 / 85; Pulse 83; Resp 43 S; Pulse Ox 98% on 9 lpm Simple Mask; ha1 03:00 BP 105 / 75; Pulse 88; Resp 30 S; Pulse Ox 98% on 9 lpm trach; ha1 04:00 BP 101 / 77; Pulse 80; Resp 26 S; Pulse Ox 98% on 9 lpm Simple Mask; ha1 05:00 BP 96 / 70; Pulse 77; Resp 27 S; Pulse Ox 99% on 9 lpm Simple Mask; ha1 06:00 BP 97 / 72; Pulse 74; Resp 27; Pulse Ox 100% on blow by trach mask; pf1 10:33 BP 117 / 76; Pulse 76; Resp 18; Pulse Ox 100% on Simple Mask trach O2; ld1 ED Course: 00:33 Patient arrived in ED. kl 00:45 Missed attempt(s): 22 gauge in left antecubital area. ha1 00:57 Harry Owusu MD is Attending Physician. maxi 01:00 Missed attempt(s): 22 gauge in right wrist. ha1 01:30 Accessed Midline 18 gauge placed to LUArm inserted by SHILA Castro. ha1 01:30 No provider procedures requiring assistance completed. ha1 01:59 XRAY Chest (1 view) In Process Unspecified. EDMS 02:06 Triage completed. ha1 02:29 Notified ED physician of a critical lab result(s). Lactate 3.9. kl 02:32 Angelica Franks MD is Hospitalizing Provider. maxi 03:39 Chest Abdomen Pelvis Wo Con CT In Process Unspecified. EDMS 14:00 Arm band placed on right wrist. ld1 14:01 Patient admitted, IV remains in place. ld1 14:01 Patient has correct armband on for positive identification. Placed in gown. Bed in low ld1 position. Call light in reach. Side rails up X2. potline monitor on. Pulse ox on. NIBP on. Notified ED physician of. Door closed. Noise minimized. Warm blanket given. Administered Medications: 01:30 Drug: NS 0.9% IV 1000 ml Route: IV; Rate: 1 bolus; Site: left upper arm; ha1 02:30 Follow up: Response: No adverse reaction; Marked relief of symptoms; IV Status: pf1 Completed infusion; IV Intake: 1000ml 02:31 Drug: DuoNeb Nebulize (2.5 mg - 0.5 mg) 3 ml Route: Nebulizer; ha1 03:30 Follow up: Response: No adverse reaction; Marked relief of symptoms pf1 02:32 Drug: Piperacillin-Tazobactam IVPB 3.375 grams Route: IVPB; Infused Over: 60 mins; ha1 Site: left upper arm; 03:30 Follow up: Response: No adverse reaction; IV Status: Completed infusion; IV Intake: pf1 100ml 05:05 Drug: Pantoprazole IVP 40 mg Route: IVP; Site: left upper arm; pf1 06:00 Follow up: Response: No adverse reaction; Marked relief of symptoms pf1 Medication: 14:01 VIS not applicable for this client. ld1 Intake: 02:30 IV: 1000ml; Total: 1000ml. pf1 03:30 IV: 100ml; Total: 1100ml. pf1 Outcome: 02:34 Decision to Hospitalize by Provider. maxi 14:01 Admitted to ICU accompanied by nurse, accompanied by chelsie, via stretcher, room 5, ld1 Report called to EMA Macario 14:01 Condition: unchanged 14:01 Instructed on the need for admit. 14:01 Patient left the ED. ld1 Signatures: Dispatcher [employer] EDGladys Harley RN RN kl Anderson, Corey, MD MD cha Leal, Jahala, RN RN jl7 Sims, Lauren, RN RN ld1 Alexa Connor RN RN ha1 Finley, Pamala, RN RN pf1 Corrections: (The following items were deleted from the chart) 05:22 05:00 BP 96 / 70; Pulse 77bpm; Resp 27bpm; Spontaneous; Pulse Ox 99% Simple Mask; ha1 ha1 05:22 04:00 BP 101 / 77; Pulse 80bpm; Resp 26bpm; Spontaneous; Pulse Ox 98% Simple Mask; ha1 ha1 05:22 03:00 BP 105 / 75; Pulse 88bpm; Resp 30bpm; Spontaneous; Pulse Ox 98% trach; ha1 ha1
--- NOTE | 2022-10-12 02:34 | EDPHYS ---
Physician Documentation [facility] Name: Elliot Hathaway Age: 62 yrs Sex: Male : 1960 Arrival Date: 10/12/2022 Time: 00:27 Bed 4 Private MD: GREGORY Physician Harry Owusu HPI: 10/12 02:21 This 62 yrs old Male presents to ER via EMS with complaints of aspiration, maxi hypoxia and trach. 02:21 The patient has shortness of breath at rest, with light activity. Onset: The maxi symptoms/episode began/occurred. Onset: The symptoms/episode began/occurred today, yesterday. Duration: The symptoms are continuous, and are steadily getting worse. The patient's shortness of breath is aggravated by coughing, supine position, is alleviated by rest, sitting up, application of supplemental oxygen. The patient or guardian reports cough, difficulty breathing. Modifying factors: The symptoms are alleviated by elevating head, remaining still, the symptoms are aggravated by activity, lying flat. Associated signs and symptoms: Pertinent positives: non-productive cough. Severity of symptoms: At their worst the symptoms were moderate in the emergency department the symptoms have resolved. Associated signs and symptoms: Pertinent positives: vomiting. Historical: - Allergies: 09:38 No Known Allergies; jl7 - PMHx: 02:07 Anxiety; chronic respiratory failure with hypoxia; DYSPHAGIA; GASTROSTOMY; HEART ha1 FAILURE; hemiplegia; Hyperlipidemia; MRSA; Seizures; brain injury; - PSHx: 02:07 gastric tube; ha1 - Immunization history:: Adult Immunizations unknown. - Social history:: Smoking status: unknown. - Family history:: not pertinent. ROS: 02:21 Constitutional: Negative for fever, chills, and weight loss, Eyes: Negative for injury, maxi pain, redness, and discharge, ENT: Negative for injury, pain, and discharge, Neck: Negative for injury, pain, and swelling, Cardiovascular: Negative for chest pain, palpitations, and edema, Abdomen/GI: Negative for abdominal pain, nausea, vomiting, diarrhea, and constipation, Back: Negative for injury and pain, : Negative for injury, bleeding, discharge, and swelling, MS/Extremity: Negative for injury and deformity, Skin: Negative for injury, rash, and discoloration, Neuro: Negative for headache, weakness, numbness, tingling, and seizure, Psych: Negative for depression, anxiety, suicide ideation, homicidal ideation, and hallucinations, Allergy/Immunology: Negative for hives, rash, and allergies, Endocrine: Negative for neck swelling, polydipsia, polyuria, polyphagia, and marked weight changes, Hematologic/Lymphatic: Negative for swollen nodes, abnormal bleeding, and unusual bruising. 02:21 Respiratory: Positive for cough, shortness of breath, at rest. Exam: 02:21 Constitutional: This is a well developed, well nourished patient who is awake, alert, maxi and in no acute distress. Head/Face: Normocephalic, atraumatic. Eyes: Pupils equal round and reactive to light, extra-ocular motions intact. Lids and lashes normal. Conjunctiva and sclera are non-icteric and not injected. Cornea within normal limits. Periorbital areas with no swelling, redness, or edema. ENT: Nares patent. No nasal discharge, no septal abnormalities noted. Tympanic membranes are normal and external auditory canals are clear. Oropharynx with no redness, swelling, or masses, exudates, or evidence of obstruction, uvula midline. Mucous membranes moist. Neck: Trachea midline, no thyromegaly or masses palpated, and no cervical lymphadenopathy. Supple, full range of motion without nuchal rigidity, or vertebral point tenderness. No Meningismus. Chest/axilla: Normal chest wall appearance and motion. Nontender with no deformity. No lesions are appreciated. Cardiovascular: Regular rate and rhythm with a normal S1 and S2. No gallops, murmurs, or rubs. Normal PMI, no JVD. No pulse deficits. Abdomen/GI: Soft, non-tender, with normal bowel sounds. No distension or tympany. No guarding or rebound. No evidence of tenderness throughout. Back: No spinal tenderness. No costovertebral tenderness. Full range of motion. Male : Normal genitalia with no discharge or lesions. Skin: Warm, dry with normal turgor. Normal color with no rashes, no lesions, and no evidence of cellulitis. MS/ Extremity: Pulses equal, no cyanosis. Neurovascular intact. Full, normal range of motion. Neuro: Awake and alert, GCS 15, oriented to person, place, time, and situation. Cranial nerves II-XII grossly intact. Motor strength 5/5 in all extremities. Sensory grossly intact. Cerebellar exam normal. Normal gait. Psych: Awake, alert, with orientation to person, place and time. Behavior, mood, and affect are within normal limits. 02:21 Respiratory: mild respiratory distress is noted, moderate respiratory distress is noted, Respirations: labored breathing, that is mild, Breath sounds: decreased breath sounds, rhonchi, + upper airway congestion. Respiratory rate: 40 02:26 ECG was reviewed by the Attending Physician. [facility] Vital Signs: 00:33 BP 92 / 75; Pulse 96; Resp 48; Temp 96.6(A); Pulse Ox 100% on trach mask blow by; ha1 Weight 70.76 kg; 01:00 BP 92 / 75; Pulse 96; Resp 48 S; Pulse Ox 97% on 9 lpm Simple Mask; ha1 02:00 BP 125 / 85; Pulse 83; Resp 43 S; Pulse Ox 98% on 9 lpm Simple Mask; ha1 03:00 BP 105 / 75; Pulse 88; Resp 30 S; Pulse Ox 98% on 9 lpm trach; ha1 04:00 BP 101 / 77; Pulse 80; Resp 26 S; Pulse Ox 98% on 9 lpm Simple Mask; ha1 05:00 BP 96 / 70; Pulse 77; Resp 27 S; Pulse Ox 99% on 9 lpm Simple Mask; ha1 06:00 BP 97 / 72; Pulse 74; Resp 27; Pulse Ox 100% on blow by trach mask; pf1 10:33 BP 117 / 76; Pulse 76; Resp 18; Pulse Ox 100% on Simple Mask trach O2; ld1 MDM: 00:57 Patient medically screened. maxi 02:27 Differential diagnosis: asthma, CHF exacerbation, Chronic Obstructive Pulmonary Disease maxi obstructed airway, tracheal injury, bronchitis, flu, URI, pneumonia, pulmonary edema, Pulmonary Embolism. Antibiotic administration: zosyn. Immunization status: Influenza vaccine: within last 5 years. Data reviewed: vital signs, nurses notes, lab test result(s), EKG, radiologic studies, plain films. Consideration of Admission/Observation Patient was admitted/placed on observation. Escalation of care including admission/observation considered. I considered the following discharge prescriptions or medication management in the emergency department Medications were administered in the Emergency Department. See MAR. Independent interpretation of the following test(s) in the Emergency Department EKG: See my EKG interpretation above. Test considered but Not performed: CT: no ct chest. Historians other than the Patient: EMS: ems, well informed. Care significantly affected by the following chronic conditions: anxiety, chronic resp failure. Counseling: I had a detailed discussion with the patient and/or guardian regarding the historical points, exam findings, and any diagnostic results supporting the discharge/admit diagnosis, lab results, radiology results, the need for further work-up and treatment in the hospital. 10/12 00:58 Order name: Basic Metabolic Panel; Complete Time: 02:38 [facility] 10/12 00:58 Order name: CBC with Diff; Complete Time: 03:01 [facility] 10/12 00:58 Order name: LFT's; Complete Time: 02:38 [facility] 10/12 00:58 Order name: Magnesium; Complete Time: 02:38 [facility] 10/12 00:58 Order name: NT PRO-BNP; Complete Time: 02:38 [facility] 10/12 00:58 Order name: PT-INR; Complete Time: 02:20 [facility] 10/12 00:58 Order name: Troponin HS; Complete Time: 02:38 [facility] 10/12 00:58 Order name: Blood Culture Adult (2) [facility] 10/12 00:58 Order name: Lactate w/ 2H reflex if indic.; Complete Time: 02:35 [facility] 10/12 02:21 Order name: Manual Differential; Complete Time: 03:01 [facility] 10/12 02:29 Order name: Valproic Acid (Depakene) Level; Complete Time: 02:38 [facility] 10/12 06:09 Order name: Lactate Sepsis 2 HR Follow-up; Complete Time: 06:17 [facility] 10/12 00:58 Order name: XRAY Chest (1 view) [facility] 10/12 02:39 Order name: Chest Abdomen Pelvis Wo Con CT la1 10/12 05:49 Order name: CT Abd/Pelvis - PO Contrast Only: PEG LOAD ONLY [facility] 10/12 09:08 Order name: CT EDLA 10/12 00:58 Order name: EKG; Complete Time: 01:00 [facility] 10/12 00:58 Order name: Cardiac monitoring; Complete Time: 02:18 [facility] 10/12 00:58 Order name: EKG - Nurse/Tech; Complete Time: 02:53 [facility] 10/12 00:58 Order name: IV Saline Lock; Complete Time: 02:18 [facility] 10/12 00:58 Order name: Labs collected and sent; Complete Time: 02:18 maxi 10/12 00:58 Order name: O2 Per Protocol; Complete Time: 02:18 maxi 10/12 00:58 Order name: O2 Sat Monitoring; Complete Time: 02:18 maxi 10/12 00:58 Order name: IV Saline Lock - Large Bore; Complete Time: 02:17 [facility] EC:26 Rate is 88 beats/min. Rhythm is regular. QRS Monitor is Normal. KS interval is normal. QRS maxi interval is normal. QT interval is normal. T waves are Normal. No ST changes noted. Clinical impression: NSR w/ Non-specific ST/T Changes and No evidence of ischemia. Interpreted by me. Reviewed by me. Administered Medications: 01:30 Drug: NS 0.9% IV 1000 ml Route: IV; Rate: 1 bolus; Site: left upper arm; ha1 02:30 Follow up: Response: No adverse reaction; Marked relief of symptoms; IV Status: pf1 Completed infusion; IV Intake: 1000ml 02:31 Drug: DuoNeb Nebulize (2.5 mg - 0.5 mg) 3 ml Route: Nebulizer; ha1 03:30 Follow up: Response: No adverse reaction; Marked relief of symptoms pf1 02:32 Drug: Piperacillin-Tazobactam IVPB 3.375 grams Route: IVPB; Infused Over: 60 mins; ha1 Site: left upper arm; 03:30 Follow up: Response: No adverse reaction; IV Status: Completed infusion; IV Intake: pf1 100ml 05:05 Drug: Pantoprazole IVP 40 mg Route: IVP; Site: left upper arm; pf1 06:00 Follow up: Response: No adverse reaction; Marked relief of symptoms pf1 Disposition Summary: 10/12/22 02:34 Hospitalization Ordered Hospitalization Status: Inpatient Admission maxi Provider: Angelica Franks cha Condition: Fair maxi Problem: new maxi Symptoms: have improved maxi Bed/Room Type: Standard [facility] Location: Intensive Care Unit(10/12/22 13:27) ja1 Room Assignment: 5-(10/12/22 13:27) [facility] Diagnosis - Pneumonia, unspecified organism - aspiration maxi - Hypoxemia maxi - Tracheostomy status maxi - Elevated white blood cell count maxi - Severe sepsis without septic shock maxi - Abdominal tenderness maxi - Abnormal findings on diagnostic imaging of other abdominal regions, including maxi retroperitoneum - trace pneumoperitoneum Forms: - Medication Reconciliation Form maxi - SBAR form maxi - Leadership Thank You Letter maxi Signatures: Dispatcher [employer] EDMS Harry Owusu MD MD cha Swanson, Donovan ds4 Matthew Herron, PANTRY COOK-C PANTRY COOK-Cla1 Jessica Reese, RN RN jl7 Jorge Abdul RN RN ja1 Alexa Connor RN RN ha1 Penny Varela RN RN pf1 Corrections: (The following items were deleted from the chart) 02:29 02:18 VALPROIC ACID (DEPAKOTE)+C.LAB.BRZ ordered. EDMS EDMS 04:05 02:34 Telemetry/MedSurg (Inpatient) maxi maxi 04:05 02:34 maxi maxi 08:11 04:05 Intensive Care Unit maxi ja1 08:11 04:05 maxi ja1 08:21 08:11 [facility] ER HOLD ja1 ds4 08:21 08:11 ERHOLD- ja1 ds4 08:21 08:21 Intensive Care Unit ds4 ds4 08:21 08:21 ds4 ds4 08:22 08:21 ds4 ds4 13:27 08:21 [facility] ER HOLD ds4 ja1 13:27 08:22 ERHOLD- ds4 ja1
[2022-10-12 02:37] LABS: Albumin 3.2 g/dL (3.4-5.0); Bilirubin Direct 0.3 mg/dL (0-0.2); Bilirubin Indirect, Calculated 0.5 mg/dL (0.2-0.8); Bilirubin Total 0.8 mg/dL (0.2-1.0); Magnesium 2.1 mg/dL (1.6-2.4); Potassium 3.5 mEq/L (3.5-5.1); Protein, Total 8.5 g/dL (6.4-8.2); Troponin High Sensitivity 6.3 pg/mL (<58.9); Valproic Acid (Depakene) Level 82.4 mcg/mL (50.0-100.0)
[2022-10-12 02:59] LABS: Blood Morphology Comment NOT SEEN (NOT SEEN); Platelet Estimate ADEQ
[2022-10-12] MEDS ORDERED: PANTOPRAZOLE 40 MG INJ ONE (05:01)
--- NOTE | 2022-10-12 06:03 | P.HP ---
Certification for Inpatient Patient admitted to: Inpatient With expected LOS: >2 Midnights Patient will require the following post-hospital care: None Practitioner: I am a practitioner with admitting privileges, knowledge of patient current condition, hospital course, and medical plan of care. Services: Services provided to patient in accordance with Admission requirements found in Title 42 Section 412.3 of the Code of Federal Regulations <GermaineMatthew Carrington - Last Filed: 10/12/22 05:59> Patient History Date of Service: 10/12/22 Reason for admission: Aspiration pneumonia, pneumoperitoneum History of Present Illness: 62-year-old male with history of TBI, anxiety, chronic respiratory failure with hypoxia with tracheostomy, dysphagia, gastrostomy, CHF, hemiplegia, hyperlipidemia, MRSA, seizure disorder presents emergency department with chief complaint of shortness of breath. correction staff reports patient had a few episodes of vomiting followed by difficulty breathing they suspect he had aspirated. Upon arrival to the emergency department patient was tachypneic with blood pressures in the 90s systolic heart rate of 96 satting 100% with blow-by oxygen over trach collar. He was evaluated in the emergency department his labs were significant for white blood cell count 20.3 lactate 3.[address] chest abdomen pelvis was performed which revealed bilateral airspace disease concerning for multifocal pneumonia. Findings predominantly involve the dependent portions of the lungs which may be related to repeated aspiration. Trace pneumoperitoneum in the right upper quadrant. The etiology of this is not certain. A perforated viscus is not excluded. Percutaneous gastrostomy tube grossly in satisfactory position. ED physician discussed case with general surgery who recommends CT scan with oral contrast through PEG tube for further evaluation of pneumoperitoneum otherwise plan is for admission to ICU for severe sepsis, bilateral pneumoniaaspiration, pneumoperitoneum. - Past Medical/Surgical History Diabetic: No -: Other specified degenerative diseases of nervous system -: Chronic Respiratory Failure with hypoxia -: Dysphagia -: Gastrostomy -: Heart Failure, unspecified -: Hemiplegia -: Hyperlipidemia -: MRSA -: Seizures -: Anxiety -: depression -: conjuctivitis -: PEG Psychosocial/ Personal History: unable to obtain - Social History Alcohol use: No CD- Drugs: No Caffeine use: No Place of Residence: [facility] Home <Matthew Herron - Last Filed: 10/12/22 05:59> Date of Service: 10/12/22 <Angelica Franks - Last Filed: 10/12/22 12:49> Allergies No Known Allergies Allergy (Unverified 05/24/22 13:26) Home Medications: Acetaminophen [Tylenol Suppository] 650 mg [place] Q6HP PRN 08/06/22 Acetaminophen [Tylenol] 650 mg FT Q4HP PRN 08/06/22 Albuterol Sulfate [Albuterol Sulfate 0.083% Neb Soln] 2.5 mg IH Q6H 08/06/22 Bisacodyl [Dulcolax*] 10 mg RC DAILY PRN 08/06/22 Carboxymethylcellulose Sodium [Artificial Tears] 1 gtt EACH EYE Q12HP PRN 08/06/22 Gabapentin 300 mg FT TID 08/06/22 Hydrocodone 10/APAP 325 [[place] 10/325*] 1 tab PO Q8H 08/06/22 Hyoscyamine Sulfate [Levsin TAB*] 0.125 mg FT Q4HP PRN 08/06/22 LORazepam [Ativan*] 0.5 mg FT Q2HP PRN 08/06/22 Lactose-Reduced Food/Fiber [Isosource 1.5 Meño Tube Feed Lq] 55 ml FT CONT 08/06/22 Lactulose 30 ml FT DAILY 08/06/22 Loratadine [Claritin*] 10 mg FT DAILY 08/06/22 Mineral Oil/Petrolatum,White [Refresh P.m. Ointment] 0.25 inch LEFT EYE QID 08/06/22 Morphine 1 ml FT Q2HP PRN 08/06/22 Mupirocin Calcium [Mupirocin] 1 appl TP DAILY 08/06/22 Promethazine Suppos [Phenergan -Suppos*] 25 mg [place] Q6HP PRN 08/06/22 Scopolamine 1 each TD Q72H 08/06/22 Sennosides/Docusate Sodium [Senna Plus 8.6-50 mg Tablet] 2 each FT DAILY 08/06/22 Sertraline HCl 50 mg FT DAILY 08/06/22 Sodium Chloride 0.9 % (Flush) [[place] Sodium Chlor Flush] 5 ml .ROUTE PRN 08/06/22 Tizanidine HCl 4 mg FT BID 08/06/22 Valproic Acid (As Sodium Salt) [Valproic Acid] 250 mg FT BID 08/06/22 guaiFENesin [Chiquita-Tussin] 10 ml FT Q8H PRN 08/06/22 levoFLOXacin [Levaquin] 500 mg PO DAILY #7 tab 08/10/22 Review of Systems is unable to be obtained <Matthew Herron - Last Filed: 10/12/22 05:59> Physical Examination - Physical Exam General: Alert, In no apparent distress, Other (Patient with history of TBI nonverbal cannot communicate by nodding head yes and now) HEENT: Atraumatic, PERRLA, Mucous membr. moist/pink, EOMI, Sclerae nonicteric Neck: Supple, 2+ carotid pulse no bruit, Other (Tracheostomy in place) Respiratory: Expiratory wheezes Cardiovascular: No edema, Regular rate/rhythm, Normal S1 S2 Capillary refill: <2 Seconds Gastrointestinal: Normal bowel sounds, No tenderness, Other (PEG tube in place) Musculoskeletal: No tenderness Integumentary: No rashes Neurological: Normal speech, Normal strength at 5/5 x4 extr, Normal tone, Normal affect Lymphatics: No axilla or inguinal lymphadenopathy - Studies Laboratory Data (last 24 hrs) 10/12/22 10/12/22 10/12/22 01:43 01:43 01:43 WBC 20.30 H Hgb 16.3 Hct 48.4 Plt Count 209 PT 11.9 INR 1.08 Sodium 141 Potassium 3.5 BUN 21 H Creatinine 1.07 Glucose 145 H Magnesium 2.1 Total Bilirubin 0.8 AST 32 ALT 36 Alkaline Phosphatase 154 H <Matthew Herron - Last Filed: 10/12/22 05:59> - Studies Laboratory Data (last 24 hrs) 10/12/22 10/12/22 10/12/22 01:43 01:43 01:43 WBC 20.30 H Hgb 16.3 Hct 48.4 Plt Count 209 PT 11.9 INR 1.08 Sodium 141 Potassium 3.5 BUN 21 H Creatinine 1.07 Glucose 145 H Magnesium 2.1 Total Bilirubin 0.8 AST 32 ALT 36 Alkaline Phosphatase 154 H <Angelica Franks - Last Filed: 10/12/22 12:49> Assessment and Plan - Plan Assessment: Acute on chronic hypoxic respiratory failure secondary to bilateral pneumoniasuspect aspiration Severe sepsis secondary to above Trace pneumoperitoneum right upper quadrant History of TBI S/P tracheostomy, PEG tube, hemiplegia Hyperlipidemia Seizure disorder Plan: Acute on chronic hypoxic respiratory failure secondary to bilateral pneumoniasuspect aspiration Severe sepsis secondary to above SIRS criteria present including tachycardia, tachypnea, leukocytosis source of infection with multifocal pneumonia suspected aspiration pneumonia. Also present is pneumoperitoneum. Blood cultures obtained initial lactate 3.9 repeat pending, no blood pressures less than 90 systolic currently. Continue IV fluids, pulmonology consult, general surgery consult. Will admit to ICU. Anticipate prolonged hospitalization. Trace pneumoperitoneum right upper quadrant ED physician discussed case with general surgery who recommends repeat CT with oral contrast through PEG tube, this is ordered and pending surgery agrees to see patient in hospital. No obvious abdominal tenderness on exam patient does have PEG tube unclear when it was last changed or if may be contributing to trace pneumoperitoneum. History of TBI S/P tracheostomy, PEG tube, hemiplegia At baseline. Hyperlipidemia Seizure disorder Continue home medications when appropriate. DVT PPX: Lovenox Code status: Full Discharge Plan: Home Plan to discharge in: Greater than 2 days - Advance Directives Does patient have a Living Will: No Does patient have a Durable POA for Healthcare: No - Code Status/Comfort Care Code Status Assessed: Yes (Full code) Critical Care: No Time Spent Managing Pts Care (In Minutes): 70 <Matthew Herron - Last Filed: 10/12/22 05:59> Date of Service: 10/12/22 Agree with plan of care as mentioned above. Spoke with general surgery and no surgical intervention at this time. We will continue monitor patient in the hospital over the next 24 to 48 hours and hopefully we can continue with supportive care and plan on discharging over the next 24 to 48 hours. Patient is clinically improving and will continue with current treatment plan. Patient is had a physical and plan of care has been reviewed. Spoke with the patient regarding his plan of care as well. <Angelica Franks - Last Filed: 10/12/22 12:49>
--- NOTE | 2022-10-12 09:07 | RAD REPORT ---
EXAM DESCRIPTION: CT - Abdomen Pelvis Wo Contrast - 10/12/2022 8:31 am CLINICAL HISTORY: Abdominal pain COMPARISON: October 12, 2022 TECHNIQUE: Computed axial tomography of the abdomen and pelvis was obtained. IV contrast not request ed. Oral contrast given All CT scans are performed using dose optimization technique as appropriate and may include automated exposure control or mA/KV adjustment according to patient size. FINDINGS: The evaluation of solid organs, vessels and bowel is limited secondary to the lack of con trast administration. Trace amount of pneumoperitoneum right upper quadrant has diminished. Moderate bibasilar alveolar opacities Liver, spleen, pancreas and adrenals grossly normal. Small bilateral renal calculi. No hydronephrosis. Bladder calculi Gallstones. Gallbladder wall does not appear thickened Percutaneous tube within stomach. Normal appendix. No evidence of diverticulitis. Rectal wall thickening unchanged Mild anterior subluxation L5 on S1. Spondylolysis L5 IMPRESSION: Trace amount of pneumoperitoneum has diminished Nonobstructing renal calculi. Bladder calculi Moderate bibasilar lung opacities may represent aspiration Cholelithiasis without evidence cholecystitis Rectal wall thickening may indicate inflammation or mass
[2022-10-12] MEDS ORDERED: ONDANSETRON 4 MG/2 ML VIAL IV PRN (09:54)
[2022-10-12] MEDS: NA CHLORIDE 0.9% 1,000 ML IV SCH ×3 (09:54→23:33)
[2022-10-12] MEDS ORDERED: VANCOMYCIN 1 GM/VIAL ONE (10:19)
[2022-10-12] MEDS ORDERED: NA CHLORIDE 0.9% 250 ML ONE (10:19)
--- NOTE | 2022-10-12 12:12 | RAD REPORT ---
EXAM DESCRIPTION: RAD - Chest Single View - 10/12/2022 1:57 am CLINICAL HISTORY: Cough;Dyspnea TECHNIQUE: AP chest COMPARISON: February 02, 2022 FINDINGS: CHEST: Tracheostomy cannula remains in place. Decreased lung volumes. Increased interstitial markings, likely chronic. Lung bases partially obscured by overlying soft tissue. Small left pleural effusion. IMPRESSION: 1. Small left pleural effusion. 2. Decreased lung volumes. 3. Increased interstitial markings, likely chronic. Electronically signed by: Jorge Silvestre MD 10/12/2022 2:15 AM CDT Due to temporary technical issues with the PACS/Fluency reporting system, reports are being signed by the in house radiologists without review as a courtesy to insure prompt reporting. The interpreting radiologist is fully responsible for the content of the report.
--- NOTE | 2022-10-12 12:15 | RAD REPORT ---
EXAM DESCRIPTION: CT - Chest Abd Pelvis Wo Con - 10/12/2022 6:32 am CLINICAL HISTORY: 62 years Male Severe sepsis, leukocytosis, vomiting, hypoxia, poss aspiration. TECHNIQUE: CT imaging of the chest, abdomen and pelvis with or without intravenous contrast administ ration. Sagittal and coronal reconstructed images were performed. The CT study is performed according to ALARA (as low as reasonably achievable) or ALARA/IMAGE GENTLY, with automatic adjustment of mA an d/or kV according to patient size. Performed on: 10/12/2022 at 3:27 AM COMPARISON: CT chest, abdomen and pelvis performed on 05/24/2022 FINDINGS: CHEST: Lungs: The lungs are well-expanded. There is worsening bilateral airspace disease when compared to th e prior study concerning for multifocal pneumonia. Findings predominantly involve the dependent porti ons of the lungs which may be related to repeated aspiration. A tracheostomy cannula is present in sa tisfactory position. The central airways are patent. No significant filling defects are appreciated w ithin the bronchi. There are no pleural effusions. There is no pneumothorax. Heart: The heart is normal in size. There is no pericardial effusion. There are mild coronary art kobi calcifications. Mediastinum: The mediastinum is unremarkable. The mediastinal vessels are normal in caliber and con tour. Bones: No acute osseous abnormalities are identified. There is thoracic kyphosis. Soft tissues: No focal soft tissue abnormalities are identified. Lymphadenopathy: No pathologic hilar, mediastinal or axillary lymphadenopathy is identified. ABDOMEN/PELVIS: Liver: The liver is top normal in size and is normal in configuration and attenuation. No focal hepat ic abnormalities are identified. Spleen: The spleen is normal in size, configuration and attenuation. Gallbladder and bile duct: The gallbladder is well distended and contains a small gallstone. There is no biliary ductal dilatation. Pancreas: The pancreas is grossly normal in size and configuration. Adrenal Glands: The adrenal glands are normal in size and configuration. Kidneys: The kidneys are normal in size and configuration. There is no evidence of hydronephrosis. Th ere are punctate bilateral nonobstructing renal calculi. No definite solid or cystic renal mass lesio ns are identified. Stomach: The stomach is grossly normal. There is no definite hiatal hernia. A percutaneous gastrostom y tube is present in grossly satisfactory position. Bowel: The bowel gas pattern is non specific and non obstructive. Appendix: There is no CT evidence of acute appendicitis. Free air: There is trace pneumoperitoneum in the right upper quadrant. The etiology of this is not ce rtain. A perforated viscus is not excluded. Free fluid: There is no evidence of free fluid. Vasculature: The aorta is normal in caliber and contour. The inferior vena cava is grossly unremarkab le. Lymphadenopathy: No pathologic lymphadenopathy is identified. Bladder: The bladder is well distended and smooth in contour. There are calcifications along the depe ndent portion of the bladder suggesting bladder calculi, these are similar when compared to the prior study. Reproductive: The prostate gland is grossly within normal limits. Bones: No acute osseous abnormalities are identified. There is grade 1 anterolisthesis of L5 relative to S1 and there are pars defects bilaterally at L5. Soft tissues: No focal soft tissue abnormalities are identified. IMPRESSION: CT CHEST: 1. Worsening bilateral airspace disease when compared to the prior study concerning for multifocal pneumonia. Findings predominantly involve the dependent portions of the lungs which may be related to repeated aspiration. 2. Tracheostomy cannula in grossly satisfactory position. 3. Thoracic kyphosis. CT ABDOMEN AND PELVIS: 1. Trace pneumoperitoneum in the right upper quadrant. The etiology of this is not certain. A perfo rated viscus is not excluded. 2. Percutaneous gastrostomy tube in grossly satisfactory position. 3. Cholelithiasis. 4. Punctate bilateral nonobstructing renal calculi. 5. Calcifications along the dependent portion of the bladder suggesting bladder calculi. These ar e similar when compared to the prior study. 6. Grade 1 anterolisthesis of L5 relative to S1 with pars defects bilaterally at L5. These critical findings were discussed with Matthew Herron NP on 10/12/2022 at 3: 59 AM central time. Electronically signed by: Twila Tillman DO 10/12/2022 4:09 AM CDT Due to temporary technical issues with the PACS/Fluency reporting system, reports are being signed by the in house radiologists without review as a courtesy to insure prompt reporting. The interpreting radiologist is fully responsible for the content of the report.
--- NOTE | 2022-10-12 12:19 | P.CNS ---
Date of Consult: 10/11/22 Reason for Consult: Aspiration pneumonia Chief Complaint: Aspiration pneumonia, History of Present Illness: Patient is 62 years of age with extensive medical history putting a craniotomy traumatic brain injury current hospital admission he goes to [facility] MRSA Pseudomonas isolated in the past admitted again with hypoxemia and lives in a skilled nursing has a tracheostomy and a PEG tube feeding up some productive phlegm admitted with pneumonia aspiration 6 Allergies No Known Allergies Allergy (Unverified 05/24/22 13:26) Home Medications: Acetaminophen [Tylenol Suppository] 650 mg [place] Q6HP PRN 08/06/22 Acetaminophen [Tylenol] 650 mg FT Q4HP PRN 08/06/22 Albuterol Sulfate [Albuterol Sulfate 0.083% Neb Soln] 2.5 mg IH Q6H 08/06/22 Gabapentin 300 mg FT TID 08/06/22 Hydrocodone 10/APAP 325 [[place] 10/325*] 1 tab FT Q8H 08/06/22 Hyoscyamine Sulfate [Levsin TAB*] 2 tab FT Q4HP PRN 08/06/22 Lactulose 30 ml FT DAILY 08/06/22 Loratadine [Claritin*] 10 mg FT DAILY 08/06/22 Mineral Oil/Petrolatum,White [Refresh P.m. Ointment] 0.25 inch LEFT EYE QID 08/06/22 Morphine 10 mg FT Q2HP PRN 08/06/22 Sennosides/Docusate Sodium [Senna Plus 8.6-50 mg Tablet] 2 each FT DAILY 08/06/22 Sertraline HCl 100 mg FT DAILY 08/06/22 Tizanidine HCl 4 mg FT BID 08/06/22 Valproic Acid (As Sodium Salt) [Valproic Acid] 250 mg FT BID 08/06/22 guaiFENesin [Chiquita-Tussin] 10 ml FT Q8H PRN 08/06/22 Buspirone HCl 5 mg FT Q8H 10/12/22 Mineral Oil/Petrolatum,White [Refresh P.m. Ointment] 1 arlin LEFT EYE QID 10/12/22 Multivit with Minerals/Lutein [Theratrum Complete 50 Plus Tab] 15 ml DAILY 10/12/22 Sodium Chloride 0.9 % (Flush) [Aquastat] 5 ml IH 6XD PRN 10/12/22 Zinc Gluconate [Zinc] 50 mg .ROUTE DAILY 10/12/22 - Past Medical/Surgical History Diabetic: No -: Other specified degenerative diseases of nervous system -: Chronic Respiratory Failure with hypoxia -: Dysphagia -: Gastrostomy -: Heart Failure, unspecified -: Hemiplegia -: Hyperlipidemia -: MRSA -: Seizures -: Anxiety -: depression -: conjuctivitis -: PEG Psychosocial/ Personal History: unable to obtain - Social History Smoking Status: Unknown if ever smoked Alcohol use: No CD- Drugs: No Caffeine use: No Place of Residence: [facility] Review of Systems is unable to be obtained Physical Examination Temp Pulse Resp BP Pulse Ox 97.9 F 78 34 H 104/79 98 10/12/22 08:00 10/12/22 08:00 10/12/22 08:00 10/12/22 08:00 10/12/22 08:00 General: Alert, Cooperative Respiratory: Clear to auscultation bilaterally, Diminished Cardiovascular: Edema Laboratory Data (last 24 hrs) 10/12/22 10/12/22 10/12/22 01:43 01:43 01:43 WBC 20.30 H Hgb 16.3 Hct 48.4 Plt Count 209 PT 11.9 INR 1.08 Sodium 141 Potassium 3.5 BUN 21 H Creatinine 1.07 Glucose 145 H Magnesium 2.1 Total Bilirubin 0.8 AST 32 ALT 36 Alkaline Phosphatase 154 H - Problems (1) Aspiration pneumonia Current Visit: Yes Status: Acute Plan: 62 years of age with traumatic brain injury he has had a hemicraniotomy only he lives in a skilled nursing admitted with cough congestion hypoxemia and has a trach and a PEG tube alert responsive and cooperative able to communicate a little bit unable to ambulate has a history of MRSA Pseudomonas infection in the past I recommend meropenem continue with the vancomycin sputum cultures have been ordered also benefit from pression vest therapy son used to do we will consider inhaled ELISA twice a day at risk for recurrent pneumonia with Pseudomonas and MRSA so need doxycycline resume tube feeds CT scan reviewed vital signs and oxygenation satisfactory son present at the bedside obtained a detailed history
[2022-10-12] MEDS ORDERED: VANCOMYCIN 1.5 GM in NA CHLORIDE 0.9% 500 ML IVPB SCH (15:00)
[2022-10-12] MEDS ORDERED: ACETAMINOPHEN 650MG/RECT SUPP PR PRN (15:07)
[2022-10-12] MEDS ORDERED: PIPER TAZO 3.375 GM in NA CHLORIDE 0.9% 100 ML IV SCH (17:00)
[2022-10-12 18:58] LABS: Specific Gravity 1.018 (1.005-1.030); Urine Bacteria None Seen /HPF (<20); Urine Bilirubin NEGATIVE (Negative); Urine Blood 3+ (OVER) (Negative); Urine Clarity Clear (Clear); Urine Color Light-Yellow (Yellow); Urine Glucose NEGATIVE (Negative); Urine Mucus Slight /HPF (None Seen); Urine Protein NEGATIVE (Negative); Urine RBC >50 /HPF (None Seen); Urine Urobilinogen Normal (Normal)
[2022-10-12] MEDS: FENTANYL CITR 100 MCG/2 ML IV PRN (19:18)
[2022-10-12 19:34] LABS: SARS-COV-2 RT PCR NEGATIVE (NEGATIVE)
[2022-10-12] MEDS: Meropenem 1,000 MG in NA CHLORIDE 0.9% 100 ML IV SCH (20:48)
[2022-10-13 00:12] LABS: Blood O2 Saturation 95.1 % (92-98.5)
[2022-10-13 00:13] LABS: Arterial Blood Carboxyhemoglob 1.2 % (0-1.5)
[2022-10-13] MEDS: IPRATROPIUM BROM 0.5MG/2.5ML NEB SCH ×4 (00:20→14:10)
[2022-10-13] MEDS: ALBUTEROL 2.5 MG/3 ML NEB SOL NEB SCH ×4 (00:20→14:10)
[2022-10-13] MEDS: FENTANYL CITR 100 MCG/2 ML IV PRN ×5 (03:06→22:14)
[2022-10-13 05:58] LABS: Absolute Lymphocytes (CBC) 0.5 K/uL (0.7-4.9); Hematocrit 42.6 % (39.6-49.0); Lymphocytes % 4.1 % (15.3-44.8); MCV 92.5 fL (80-100); MPV 9.3 fL (7.6-11.3); Platelets 120 thou/uL (152-406); RBC Red Blood Cell Count 4.61 M/uL (4.33-5.43)
[2022-10-13 06:13] LABS: Albumin 2.6 g/dL (3.4-5.0); Bilirubin Direct 0.3 mg/dL (0-0.2); Bilirubin Indirect, Calculated 0.5 mg/dL (0.2-0.8); Bilirubin Total 0.8 mg/dL (0.2-1.0); Magnesium 1.8 mg/dL (1.6-2.4); Potassium 3.5 mEq/L (3.5-5.1)
[2022-10-13 06:40] VITALS: BMI 24.2
[2022-10-13] MEDS ORDERED: MAGNESIUM SULFATE 1 gm IVPB 1 GM/100 ML BAG IV ONE (07:30)
--- NOTE | 2022-10-13 07:34 | P.PN ---
Date of Service: 10/13/22 Subjective Patient doing well with no new changes; clear to be improving. Spoke with surgery about the pneumomediastinum which appears to be reabsorbing it does not seem to be causing any peritoneal signs. Physical Examination - Physical Exam General: Alert, In no apparent distress, Other (Patient with history of TBI nonverbal cannot communicate by nodding head yes and now) Neck: Supple, 2+ carotid pulse no bruit, Other (Tracheostomy in place) Respiratory: Within expiratory wheezing. Cardiovascular: Tachycardic but no murmurs Gastrointestinal: Normal bowel sounds, No tenderness, Other (PEG tube in place) Musculoskeletal: No tenderness Integumentary: No rashes Neurological: No focal deficits Assessment and Plan Assessment: Acute on chronic hypoxic respiratory failure secondary to bilateral pneumoniasuspect aspiration Severe sepsis secondary to above Trace pneumoperitoneum right upper quadrant History of TBI S/P tracheostomy, PEG tube, hemiplegia Hyperlipidemia Seizure disorder Plan: Acute on chronic hypoxic respiratory failure secondary to bilateral pneumoniasuspect aspiration Severe sepsis secondary to above Patient has recurrent episodes of pneumonia. We will continue to monitor patient closely. Continue with antibiotic therapy. Awaiting for culture results. Trace pneumoperitoneum right upper quadrant Continue monitoring abdominal symptoms. We will go ahead and start tube feeds tomorrow if patient is clinically appearing to do well. No surgical intervention per surgery History of TBI S/P tracheostomy, PEG tube, hemiplegia Continue with supportive care Hyperlipidemia Continue with statin therapy at this time Seizure disorder Continue home medications when appropriate. Stage II sacral decubitus ulcer Continue with wound care DVT PPX: Lovenox Code status: Full Discharge Plan: Home Plan to discharge in: Greater than 2 days - Advance Directives Does patient have a Living Will: No Does patient have a Durable POA for Healthcare: No - Code Status/Comfort Care Code Status Assessed: Yes (Full code) Critical Care: No Time Spent Managing Pts Care (In Minutes): 70
[2022-10-13] MEDS: NA CHLORIDE 0.9% 1,000 ML IV SCH ×2 (07:49→17:54)
[2022-10-13] MEDS ORDERED: KCL 20 MEQ/100 mL IVPB 20 MEQ/100 ML BAG IV ONE (08:00)
[2022-10-13] MEDS: Meropenem 1,000 MG in NA CHLORIDE 0.9% 100 ML IV SCH ×2 (08:07→16:52)
[2022-10-13] MEDS ORDERED: VANCOMYCIN 1.5 GM in NA CHLORIDE 0.9% 500 ML IVPB SCH (09:00)
[2022-10-13] MEDS ORDERED: JEVITY 1.5 CAL LIQUID 1,000 ML BOT RTH SCH (12:00)
--- NOTE | 2022-10-13 12:45 | P.PN ---
Subjective Date of Service: 10/13/22 Chief Complaint: Aspiration pneumonia, Subjective: Improving (Patient is improving still has some copious thick secretions) Review of Systems General: Weakness Respiratory: Shortness of Breath Physical Examination - Vital Signs Temperature: 98.4 F Blood Pressure: 132/85 Pulse: 102 Respirations: 35 Pulse Ox (%): 99 - Physical Exam General: Alert, Oriented x2, Oriented x1, Mild distress Respiratory: Clear to auscultation bilaterally, Diminished Cardiovascular: Edema Assessment And Plan - Current Problems (Diagnosis) (1) Aspiration pneumonia Current Visit: Yes Status: Acute Plan: Patient admitted with pneumonia he has had recurrent episodes MRSA Pseudomonas isolated in the past continue with meropenem vancomycin await sensitivities need a percussion vest nebulized tobramycin prevent recurrence of Pseudomonas infection very high risk to missed tube feeds minimal pneumoperitoneum history is reviewed white count is declining vital signs are stable stable to be transferred to the floor Qualifiers: Lung location: lower lobe of lung
--- NOTE | 2022-10-13 16:49 | EKG ---
Test Date: 2022-10-12 Test Time: 01:49:51 Construction Project Engineer: DANE MEASUREMENT RESULTS: Intervals: Rate: 88 RI: 138 QRSD: 72 QT: 372 QTc: 450 [place]: P: 76 RI: 138 QRS: -67 T: 59 INTERPRETIVE STATEMENTS: Normal sinus rhythm Left axis deviation Nonspecific ST abnormality Abnormal ECG Compared to ECG 08/06/2022 10:52:40 ST (T wave) deviation now present Sinus tachycardia no longer present Myocardial infarct finding no longer present Electronically Signed On 10-13-22 16:44:46 CDT by Darryl Li
[2022-10-14] MEDS: Meropenem 1,000 MG in NA CHLORIDE 0.9% 100 ML IV SCH ×3 (01:00→17:31)
[2022-10-14] MEDS: FENTANYL CITR 100 MCG/2 ML IV PRN ×6 (02:03→21:37)
[2022-10-14] MEDS: NA CHLORIDE 0.9% 1,000 ML IV SCH ×4 (04:30→21:38)
[2022-10-14] MEDS: IPRATROPIUM BROM 0.5MG/2.5ML NEB SCH ×3 (07:40→20:10)
[2022-10-14] MEDS: ALBUTEROL 2.5 MG/3 ML NEB SOL NEB SCH (07:40)
[2022-10-14 07:42] LABS: Absolute Lymphocytes (CBC) 0.4 K/uL (0.7-4.9); Hematocrit 37.2 % (39.6-49.0); Lymphocytes % 3.1 % (15.3-44.8); MCV 90.4 fL (80-100); MPV 8.8 fL (7.6-11.3); Platelets 125 thou/uL (152-406); RBC Red Blood Cell Count 4.11 M/uL (4.33-5.43)
--- NOTE | 2022-10-14 07:47 | RAD REPORT ---
EXAM DESCRIPTION: Sunny Single View10/14/2022 4:58 am CLINICAL HISTORY: Cough COMPARISON: October 12 FINDINGS: No change in mild bibasilar lung opacities. Heart is normal size. Tracheostomy tube in place IMPRESSION: No change in mild bibasilar lung opacities which may represent aspiration pneumonia
[2022-10-14 08:01] LABS: Albumin 2.2 g/dL (3.4-5.0); Bilirubin Total 0.7 mg/dL (0.2-1.0); Protein, Total 5.9 g/dL (6.4-8.2)
[2022-10-14 08:03] LABS: Magnesium 1.8 mg/dL (1.6-2.4); Potassium 3.4 mEq/L (3.5-5.1)
[2022-10-14] MEDS: KCL 20 MEQ/100 mL IVPB 20 MEQ/100 ML BAG IV SCH ×3 (11:51→23:26)
--- NOTE | 2022-10-14 12:04 | P.PN ---
Subjective Date of Service: 10/14/22 Chief Complaint: Aspiration pneumonia, Subjective: Improving (Patient is subjectively improving no new complaints still has some cough congestion) Review of Systems General: Weakness Respiratory: Cough, Shortness of Breath Physical Examination - Vital Signs Temperature: 99.2 F Blood Pressure: 103/58 Pulse: 62 Respirations: 18 Pulse Ox (%): 98 - Physical Exam General: Alert, Cooperative Respiratory: Clear to auscultation bilaterally, Diminished, Rhonchi/gurgles Cardiovascular: No edema, Regular rate/rhythm, Normal S1 S2 Assessment And Plan - Current Problems (Diagnosis) (1) Aspiration pneumonia Current Visit: Yes Status: Acute Plan: Patient admitted with aspiration pneumonia continue with present therapy sputum cultures are pending blood cultures are negative count continues to remain mildly elevated chest x-ray no change or signs oxygenation satisfactory patient is becoming mildly hypernatremic still has a borderline temp Qualifiers: Lung location: lower lobe of lung
[2022-10-14] MEDS ORDERED: ALBUTEROL 2.5 MG/3 ML NEB SOL NEB PRN ×2 (12:06→14:00)
--- NOTE | 2022-10-14 12:25 | RAD REPORT ---
EXAM DESCRIPTION: RAD - Upper GI Series [facility] - 10/14/2022 12:00 pm CLINICAL HISTORY: Nausea and vomiting COMPARISON: None FINDINGS: Contrast was injected into the PEG tube. The tube lies within the gastric body. There is no extravasation of contrast. Mucosal folds of the stomach appear grossly normal. Gastric soft reflux is not visualized Contrast flows into the duodenum. Mucosal folds appear normal. Bowel caliber is normal IMPRESSION: Unremarkable exam
[2022-10-14] MEDS ORDERED: JEVITY 1.5 CAL LIQUID 1,000 ML BOT RTH SCH (16:00)
[2022-10-15] MEDS: MUPIROCIN 2% OINT 22GM TUBE TOP SCH ×3 (00:18→21:00)
[2022-10-15] MEDS: Meropenem 1,000 MG in NA CHLORIDE 0.9% 100 ML IV SCH ×3 (01:30→17:34)
[2022-10-15] MEDS: FENTANYL CITR 100 MCG/2 ML IV PRN ×6 (01:30→21:39)
[2022-10-15] MEDS: IPRATROPIUM BROM 0.5MG/2.5ML NEB SCH ×4 (01:50→20:35)
[2022-10-15] MEDS: NA CHLORIDE 0.9% 1,000 ML IV SCH ×3 (01:54→17:35)
[2022-10-15] MEDS: KCL 20 MEQ/100 mL IVPB 20 MEQ/100 ML BAG IV SCH (02:27)
[2022-10-15 04:10] LABS: Absolute Lymphocytes (CBC) 0.7 K/uL (0.7-4.9); Hematocrit 37.9 % (39.6-49.0); Lymphocytes % 6.8 % (15.3-44.8); MCV 90.2 fL (80-100); MPV 8.8 fL (7.6-11.3); Platelets 142 thou/uL (152-406); RBC Red Blood Cell Count 4.21 M/uL (4.33-5.43)
[2022-10-15 04:34] LABS: Albumin 2.2 g/dL (3.4-5.0); Bilirubin Total 0.5 mg/dL (0.2-1.0); Magnesium 1.7 mg/dL (1.6-2.4); Potassium 3.6 mEq/L (3.5-5.1)
[2022-10-15] MEDS ORDERED: MAGNESIUM SULFATE 1 gm IVPB 1 GM/100 ML BAG IV ONE (05:18)
--- NOTE | 2022-10-15 07:51 | P.PN ---
Date of Service: 10/13/22 Subjective Patient continues to do well. Continue reabsorption of pneumoperitoneum. We will go ahead and start tube feeds in the morning after upper GI series as patient had recurrent episode of vomiting. Physical Examination - Physical Exam General: Alert, In no apparent distress, Other (Patient with history of TBI nonverbal cannot communicate by nodding head yes and now) Neck: Supple, 2+ carotid pulse no bruit, Other (Tracheostomy in place) Respiratory: Within expiratory wheezing. Cardiovascular: Tachycardic but no murmurs Gastrointestinal: Normal bowel sounds, No tenderness, Other (PEG tube in place) Musculoskeletal: No tenderness Integumentary: No rashes Neurological: No focal deficits Assessment and Plan Assessment: Acute on chronic hypoxic respiratory failure secondary to bilateral pneumoniasuspect aspiration Severe sepsis secondary to above Trace pneumoperitoneum right upper quadrant History of TBI S/P tracheostomy, PEG tube, hemiplegia Hyperlipidemia Seizure disorder Plan: Acute on chronic hypoxic respiratory failure secondary to bilateral pneumoniasuspect aspiration Severe sepsis secondary to above Patient has recurrent episodes of aspiration pneumonia. Upper GI series pending Trace pneumoperitoneum right upper quadrant Continue monitoring abdominal symptoms. We will go ahead and start tube feeds tomorrow if patient is clinically appearing to do well. No surgical intervention per surgery; upper GI series to further evaluate if appropriately placed History of TBI S/P tracheostomy, PEG tube, hemiplegia Continue with supportive care; upper GI to further evaluate Hyperlipidemia Continue with statin therapy at this time Seizure disorder Continue home medications when appropriate. Stage II sacral decubitus ulcer Continue with wound care DVT PPX: Lovenox Code status: Full Discharge Plan: Home Plan to discharge in: Greater than 2 days - Advance Directives Does patient have a Living Will: No Does patient have a Durable POA for Healthcare: No - Code Status/Comfort Care Code Status Assessed: Yes (Full code) Critical Care: No Time Spent Managing Pts Care (In Minutes): 70
--- NOTE | 2022-10-15 07:53 | P.PN ---
Date of Service: 10/14/22 Subjective Upper GI series without any obvious reasons for vomiting after tube feeds have been started. I Apoorva start his tube feeds slowly while I keep his bed elevated at above 45 degrees. Physical Examination - Physical Exam General: Alert, In no apparent distress, Other (Patient with history of TBI nonverbal cannot communicate by nodding head yes and now) Neck: Tracheostomy in place Respiratory: Clear with end expiratory wheezing Cardiovascular: Regular rate rhythm with systolic ejection murmur Gastrointestinal: Normal bowel sounds, No tenderness, Other (PEG tube in place) Musculoskeletal: No tenderness Integumentary: Stage II sacral decubitus ulcer Neurological: No focal deficits Assessment and Plan Assessment: Acute on chronic hypoxic respiratory failure secondary to bilateral pneu moniasuspect aspiration Severe sepsis secondary to above Trace pneumoperitoneum right upper quadrant History of TBI S/P tracheostomy, PEG tube, hemiplegia Hyperlipidemia Seizure disorder Stage II sacral decubitus ulcer Plan: Acute on chronic hypoxic respiratory failure secondary to bilateral pneumoniasuspect aspiration Severe sepsis secondary to above Patient has recurrent episodes of aspiration pneumonia. Upper GI series pending Trace pneumoperitoneum right upper quadrant Continue monitoring abdominal symptoms. We will go ahead and start tube feeds tomorrow if patient is clinically appearing to do well. No surgical intervention per surgery; upper GI series to further evaluate if appropriately placed History of TBI S/P tracheostomy, PEG tube, hemiplegia Continue with supportive care; upper GI to further evaluate Hyperlipidemia Continue with statin therapy at this time Seizure disorder Continue home medications when appropriate. Stage II sacral decubitus ulcer Continue with wound care DVT PPX: Lovenox Code status: Full Discharge Plan: Home Plan to discharge in: Greater than 2 days - Advance Directives Does patient have a Living Will: No Does patient have a Durable POA for Healthcare: No - Code Status/Comfort Care Code Status Assessed: Yes (Full code) Critical Care: No Time Spent Managing Pts Care (In Minutes): 70
--- NOTE | 2022-10-15 07:53 | P.PN ---
Date of Service: 10/15/22 Subjective Patient improving. Tolerating tube feeds at 20 cc an hour. Will increase to 30 cc while head of bed is elevated. We will continue monitoring for aspiration. Physical Examination - Physical Exam General: Alert, In no apparent distress, Other (Patient with history of TBI nonverbal cannot communicate by nodding head yes and now) Neck: Tracheostomy in place Respiratory: Clear with end expiratory wheezing Cardiovascular: Regular rate rhythm with systolic ejection murmur Gastrointestinal: Normal bowel sounds, No tenderness, Other (PEG tube in place) Musculoskeletal: No tenderness Integumentary: Stage II sacral decubitus ulcer Neurological: No focal deficits Assessment and Plan Assessment: Acute on chronic hypoxic respiratory failure secondary to bilateral pneumoniasuspect aspiration Severe sepsis secondary to above Trace pneumoperitoneum right upper quadrant History of TBI S/P tracheostomy, PEG tube, hemiplegia Hyperlipidemia Seizure disorder Stage II sacral decubitus ulcer Plan: Acute on chronic hypoxic respiratory failure secondary to bilateral pneumoniasuspect aspiration Severe sepsis secondary to above Patient has recurrent episodes of aspiration pneumonia. Upper GI series pending Trace pneumoperitoneum right upper quadrant Continue monitoring abdominal symptoms. We will go ahead and start tube feeds tomorrow if patient is clinically appearing to do well. No surgical intervention per surgery; upper GI series to further evaluate if appropriately placed History of TBI S/P tracheostomy, PEG tube, hemiplegia Continue with supportive care; upper GI to further evaluate Hyperlipidemia Continue with statin therapy at this time Seizure disorder Continue home medications when appropriate. Stage II sacral decubitus ulcer Continue with wound care DVT PPX: Lovenox Code status: Full Discharge Plan: Home Plan to discharge in: Greater than 2 days - Advance Directives Does patient have a Living Will: No Does patient have a Durable POA for Healthcare: No - Code Status/Comfort Care Code Status Assessed: Yes (Full code) Critical Care: No Time Spent Managing Pts Care (In Minutes): 70
[2022-10-15] MEDS ORDERED: JEVITY 1.5 CAL LIQUID 1,000 ML BOT RTH SCH (14:39)
[2022-10-15] MEDS ORDERED: KCL 20 MEQ/100 mL IVPB 20 MEQ/100 ML BAG IV SCH (18:00)
[2022-10-15] MEDS: METOCLOPRAMIDE 10MG/10ML UCUP FT SCH (22:00)
[2022-10-15] MEDS: D5W 1,000 ML IV SCH (22:54)
[2022-10-16] MEDS: Meropenem 1,000 MG in NA CHLORIDE 0.9% 100 ML IV SCH ×2 (01:29→09:08)
[2022-10-16] MEDS: IPRATROPIUM BROM 0.5MG/2.5ML NEB SCH ×4 (01:40→20:00)
[2022-10-16] MEDS: FENTANYL CITR 100 MCG/2 ML IV PRN ×3 (03:28→12:55)
[2022-10-16 04:05] LABS: Absolute Lymphocytes (CBC) 0.7 K/uL (0.7-4.9); Lymphocytes % 9.6 % (15.3-44.8); MCV 89.2 fL (80-100); Platelets 174 thou/uL (152-406); RBC Red Blood Cell Count 4.04 M/uL (4.33-5.43)
[2022-10-16 04:24] LABS: Bilirubin Total 0.3 mg/dL (0.2-1.0); Magnesium 1.6 mg/dL (1.6-2.4); Potassium 3.1 mEq/L (3.5-5.1); Protein, Total 5.5 g/dL (6.4-8.2)
[2022-10-16] MEDS ORDERED: MAGNESIUM SULFATE 1 gm IVPB 1 GM/100 ML BAG IV ONE (04:38)
[2022-10-16] MEDS: KCL 20 MEQ/100 mL IVPB 20 MEQ/100 ML BAG IV SCH ×2 (06:26→08:17)
[2022-10-16] MEDS: JUVEN PACKET PO SCH ×4 (08:18→21:00)
[2022-10-16] MEDS: MUPIROCIN 2% OINT 22GM TUBE TOP SCH ×2 (09:00→21:00)
[2022-10-16 09:34] LABS: SARS-CoV-2 Antigen Rapid Res Negative (Negative)
[2022-10-16] MEDS: METOCLOPRAMIDE 10MG/10ML UCUP FT SCH ×2 (10:00→21:02)
[2022-10-16] MEDS: CEFEPIME 1 GM in NA CHLORIDE 0.9% 100 ML IV SCH ×2 (10:40→21:00)
[2022-10-16] MEDS: D5W 1,000 ML IV SCH ×2 (11:20→13:59)
[2022-10-16 16:41] VITALS: BP 139/80; TEMP 97.2
[2022-10-16] MEDS ORDERED: Mupirocin NASAL 2 APPL/1 GM TUBE NAS SCH (21:00)
[2022-10-16 22:06] VITALS: O2SAT 98
--- NOTE | 2022-10-17 09:23 | P.PN ---
Subjective Date of Service: 10/16/22 Chief Complaint: Aspiration pneumonia, Subjective: Improving (Patient is improving still has some congestion Pseudomonas resistant) Review of Systems is unable to be obtained Physical Examination - Vital Signs Temperature: 97.2 F Blood Pressure: 139/80 Pulse: 85 Respirations: 16 Pulse Ox (%): 99 - Physical Exam General: Cooperative Respiratory: Crackles/rales, Expiratory wheezes Cardiovascular: No edema, Regular rate/rhythm - Studies Microbiology Data (last 24 hrs): 10/12/22 01:43 Blood - Blood Aerobic Blood Culture - Final No growth in 5 days. 10/12/22 01:43 Blood - Blood Anaerobic Blood Culture - Final No growth in 5 days. 10/12/22 01:30 Blood - Blood Aerobic Blood Culture - Final No growth in 5 days. 10/12/22 01:30 Blood - Blood Anaerobic Blood Culture - Final No growth in 5 days. Assessment And Plan - Current Problems (Diagnosis) (1) Aspiration pneumonia Status: Acute Plan: Patient is 62 years of age admitted with aspiration pneumonia pneumonia she is resistant to meropenem changed to cefepime and at least 2 weeks of IV therapy at home discussed with Dr. Reis Labs reviewed mild hyponatremia mild hypokalemia probably benefit from nebulized tobramycin will follow-up as an outpatient telephone visit and he may also benefit from a percussion vest twice vital signs are stable Qualifiers: Lung location: lower lobe of lung
--- NOTE | 2022-11-09 02:48 | P.DS ---
Discharge Date: 10/16/22 Disposition: TRANSFER TO SNF - MEDICAL Discharge Condition: GOOD Reason for Admission: Aspiration pneumonia, Brief History of Present Illness: Patient is a 62-year-old male with history of TBI, anxiety, chronic respiratory failure with hypoxia with tracheostomy, dysphagia, gastrostomy, CHF, hemiplegia, hyperlipidemia, MRSA, seizure disorder presents emergency department with chief complaint of shortness of breath. [facility] staff reports patient had a few episodes of vomiting followed by difficulty breathing they suspect he had aspirated. Upon arrival to the emergency department patient was tachypneic with blood pressures in the 90s systolic heart rate of 96 satting 100% with blow-by oxygen over trach collar. He was evaluated in the emergency department his labs were significant for white blood cell count 20.3 lactate 3.[address] chest abdomen pelvis was performed which revealed bilateral airspace disease concerning for multifocal pneumonia. Findings predominantly involve the dependent portions of the lungs which may be related to repeated aspiration. Trace pneumoperitoneum in the right upper quadrant. The etiology of this is not certain. A perforated viscus is not excluded. Percutaneous gastrostomy tube grossly in satisfactory position. ED physician discussed case with general surgery who recommends CT scan with oral contrast through PEG tube for further evaluation of pneumoperitoneum otherwise plan is for admission to ICU for severe sepsis, bilateral pneumoniaaspiration, pneumoperitoneum. Hospital Course: Patient clinically doing well. Patient is tolerating his tube feeds. Patient's pneumonia is stable. At this time, patient is stable for discharge to retirement with outpatient follow-up. Vital Signs/Physical Exam: Temp Pulse Resp BP Pulse Ox 97.2 F 85 16 139/80 99 10/17/22 09:23 10/17/22 09:23 10/17/22 09:23 10/17/22 09:23 10/17/22 09:23 General: Alert Laboratory Data at Discharge: WBC 7.60 thou/uL (4.3-10.9) 10/16/22 03:33 Hgb 12.4 g/dL (13.6-17.9) L 10/16/22 03:33 Hct 36.0 % (39.6-49.0) L 10/16/22 03:33 Plt Count 174 thou/uL (152-406) 10/16/22 03:33 PT 11.9 SECONDS (9.5-12.5) 10/12/22 01:43 INR 1.08 10/12/22 01:43 Sodium 146 mEq/L (136-145) H 10/16/22 03:33 Potassium 3.1 mEq/L (3.5-5.1) L D 10/16/22 03:33 BUN 14 mg/dL (7-18) 10/16/22 03:33 Creatinine 0.45 mg/dL (0.70-1.30) L 10/16/22 03:33 Glucose 119 mg/dL (74-106) H 10/16/22 03:33 Magnesium 1.6 mg/dL (1.6-2.4) 10/16/22 03:33 Total Bilirubin 0.3 mg/dL (0.2-1.0) 10/16/22 03:33 AST 42 U/L (15-37) H 10/16/22 03:33 ALT 33 U/L (16-61) 10/16/22 03:33 Alkaline Phosphatase 82 U/L (45-117) 10/16/22 03:33 Lipase 68 U/L (13-75) 10/13/22 05:09 Home Medications: Acetaminophen [Tylenol Suppository] 650 mg FL Q6HP PRN 08/06/22 Acetaminophen [Tylenol] 650 mg FT Q4HP PRN 08/06/22 Albuterol Sulfate [Albuterol Sulfate 0.083% Neb Soln] 2.5 mg IH Q6H 08/06/22 Gabapentin 300 mg FT TID 08/06/22 Hydrocodone 10/APAP 325 [[place] 10/325*] 1 tab FT Q8H 08/06/22 Hyoscyamine Sulfate [Levsin TAB*] 2 tab FT Q4HP PRN 08/06/22 Lactulose 30 ml FT DAILY 08/06/22 Loratadine [Claritin*] 10 mg FT DAILY 08/06/22 Mineral Oil/Petrolatum,White [Refresh P.m. Ointment] 0.25 inch LEFT EYE QID 08/06/22 Morphine 10 mg FT Q2HP PRN 08/06/22 Sennosides/Docusate Sodium [Senna Plus 8.6-50 mg Tablet] 2 each FT DAILY 08/06/22 Sertraline HCl 100 mg FT DAILY 08/06/22 Tizanidine HCl 4 mg FT BID 08/06/22 Valproic Acid (As Sodium Salt) [Valproic Acid] 250 mg FT BID 08/06/22 guaiFENesin [Chiquita-Tussin] 10 ml FT Q8H PRN 08/06/22 Buspirone HCl 5 mg FT Q8H 10/12/22 Mineral Oil/Petrolatum,White [Refresh P.m. Ointment] 1 arlin LEFT EYE QID 10/12/22 Multivit with Minerals/Lutein [Theratrum Complete 50 Plus Tab] 15 ml DAILY 10/12/22 Sodium Chloride 0.9 % (Flush) [Aquastat] 5 ml IH 6XD PRN 10/12/22 Zinc Gluconate [Zinc] 50 mg .ROUTE DAILY 10/12/22 Physician Discharge Instructions: -DC IV and DC to retirement -Follow-up with PCP in 1 to 2 weeks -Please call Dr. Franks at [phone] if any questions regarding hospital stay -Please call nursing station at [phone] if any nursing or medication questions -Return to the emergency room if symptoms worsen -Keep patient at 60 degrees while he is getting his tube feedings. If patient needs to lie flat please hold his tube feedings at least 1 hour prior to laying him flat. Please continue with cefepime 2 g IV piggyback every 12 for 2 weeks Diet: tube feeds Activity: Fall precautions Followup: NONE,NONE [Primary Care Provider] - 1-2 Weeks (Call for appointment.) Time spent managing pt's care (in minutes): 35
== END 2022-10-16 22:10 | DRG 871 ==
LOC: ER 00:27 → ERHOLD 06:03 → 3RD-ICU 13:40 → 2ND 10-13 18:06
PROVIDERS: ADMIT Hospitalist; ATTEND Hospitalist
DX: A41.9 Sepsis, unspecified organism (principal); J69.0 Pneumonitis due to inhalation of food and vomit; J96.21 Acute and chronic respiratory failure with hypoxia; G81.90 Hemiplegia, unspecified affecting unspecified side; E87.0 Hyperosmolality and hypernatremia; R65.20 Severe sepsis without septic shock; I10 Essential (primary) hypertension; E87.6 Hypokalemia; E78.5 Hyperlipidemia, unspecified; L89.152 Pressure ulcer of sacral region, stage 2; G40.909 Epilepsy, unspecified, not intractable, without status epilepticus; Z93.0 Tracheostomy status; Z93.1 Gastrostomy status; Z86.14 Personal history of Methicillin resistant Staphylococcus aureus infection; Z79.899 Other long term (current) drug therapy; Z87.820 Personal history of traumatic brain injury; Z20.822 Contact with and (suspected) exposure to COVID-19
CPT/HCPCS: 0241U; 36415; 71045; 71250; 74176; 74240; 80048; 80053; 80076; 80164; 81001; 82248; 82805; 83605; 83690; 83735; 83880; 84132; 84145; 84484; 85025; 85610; 87040; 87070; 87077; 87186; 87205; 87811; 93005; 94640; 96361; 96365; 96375; 99285; C9113; J0692; J2185; J2405; J2543; J3010; J3475; J3480; J7030; J7040; J7050; J7613; J7644

== ENCOUNTER 2022-10-18 03:31 | Emergency (ER) | payer OTHER ==
--- OUTSIDE RECORDS SUMMARY | 2022-10-18 03:38 | XMS REPORT | Continuity of Care Document ---
:1960 Author Organization [facility] t Address [address] [facility] [address] [place] [address] Care Team Providers Name Role Phone No MD, Pcp Primary Care Physician Unavailable REBECA JUAREZ Attending Clinician Unavailable CASSANDRA_KEYON Attending Clinician Unavailable ROSALIE MAGAÑA Attending Clinician Unavailable AMBREEN_WESLEYA Admitting Clinician Unavailable FARNAZ DELGADO Admitting Clinician Unavailable Payers Payer Name Policy Type Policy Number Effective Date Expiration Date S [employer] [facility] [employer] [id number] 2019 00:00:00 Problems Condition Condition Condition Status Onset Resolution Last Treating Co mments Source Name Details Category Date Date Treatment Clinician Date Altered Altered Disease Active GALDINO Rossi mental mental 09-04 [facility] 00:00: Medical 00 Center S/P S/P Disease [...] Stop Date Source Tobacco smoking consumption unknown [facility] Never smoked tobacco [facility] Medications Ordered Filled Start Stop Current Ordering Indication Dosage Frequency Signature Comments Components Source Medication Medication Date Date Medication? Clinician (SIG) Name Name bacitracin Yes QD Apply [facility] 7-29 topically [facility] unit/gram 19:59: daily. Medica l ointment 13 Center trypsin-bal Yes Apply [facility] drake-castor 7-29 topically [facility] oil 19:59: 2 (two) Medical 558 13 times Center unit-mg-mg/ daily as gram Oint needed. bisacodyl Yes 10mg Place [address] [facility] (FLEET) 10 7-29 mg [facility] mg/30 mL 19:59: rectally Medic al Enem enema 13 once. Center acetaminoph Yes 650mg Take [address] en 7-29 mg by [facility] (TYLENOL) 19:59: mouth Medical 325 MG 13 every 4 Center tablet (four) hours as needed for Pain. enoxaparin Yes 70mg Inject 70 [facility] [...] 10 mg 19:59: daily. Medical tablet 13 [place] melatonin 3 Yes 3mg Take [address] mg Tab 7-29 by mouth [facility] tablet 19:59: every Medical 13 night as Center needed. mirtazapine Yes 15mg QD Take [address] [facility] [address] (REMERON) 7-29 by mouth [facility] 15 MG 19:59: nightly. Medical tablet 13 [place] ondansetron Yes 4mg Take 4 mg C [...] 19:59: daily. Medic al 17 gram 13 [place] packet Lactobacill Yes 1{tbl} QD Take [address] us 7-29 tablet by [facility] acidoph-L.b 19:59: mouth Medic al ulgar 13 daily. [facility] (FLORANEX) 1 million cell Tab per tablet senna Yes 2{tbl} QD Take [address] [facility] [address] (SENOKOT) 7-29 tablets by Luke s 8.6 mg 19:59: mouth Medical tablet 13 nightly. [place] sertraline Yes 100mg QD Take [address] (ZOLOFT) 7-29 mg by [facility] 100 MG 19:59: mouth Medical tablet 13 daily. [facility] whey 0 Yes 7g Q.[id number] 7 g by PEG [facility] protein 7-29 [id number] Tube route [facility] isolate 21 19:59: 3D [...] 40 MG 19:59: daily. Medical tablet 13 [place] bacitracin Yes QD Apply [facility] 500 7-29 topically [facility] unit/gram 19:59: daily. Medica l ointment 13 [place] trypsin-bal Yes Apply [facility]ke-[facility] 7- topically [facility] oil 19:59: 2 (two) Medical [id number] 13 times Center unit-mg-mg/ daily as gram Oint needed. bisacodyl Yes 10mg Place [address] [facility] (FLEET) 10 7-29 mg [facility] mg/30 mL 19:59: rectally Medic al Enem enema 13 once. [place] enoxaparin Yes 70mg Inject [address] (LOVENOX) 7-29 mg [facility] 100 mg/mL 19:59: subcutaneo Me dical Syrg 13 usly every Center 12 (twelve) hours. atorvastati Yes 40mg QD Take [address] [facility] [address] n (LIPITOR) 7-29 by mouth Luke s 40 MG 19:59: daily. Medical tablet 13 [place] fluticasone Yes 1{puff} Inhale [address] [facility] [...] 10 mg 19:59: daily. Medical tablet 13 [place] melatonin 3 Yes 3mg Take [address] mg Tab 7-29 by mouth [facility] tablet 19:59: every Medical 13 night as Center needed. mirtazapine Yes 15mg QD Take [address] [facility] (REMERON) 7-29 by mouth [facility] 15 MG 19:59: nightly. Medical tablet 13 [place] ondansetron Yes 4mg Take [address] (ZOFRAN-ODT 7-29 by mouth Luke s ) 4 MG 19:59: every 8 Medical disintegrat 13 (eight) Cente r ing tablet hours as needed for Nausea. pantoprazol Yes 40mg QD Take [address] [facility] e 7-29 by mouth [facility] (PROTONIX) 19:59: daily. Medic al 40 MG 13 [place] tablet polyethylen Yes 17g QD Take [address] e glycol 7-29 by mouth [facility] (GLYCOLAX) 19:59: daily. Medic al 17 gram 13 [facility] packet senna Yes 2{tbl} QD Take [address] [facility] (SENOKOT) 7-29 tablets by Luke s 8.6 mg 19:59: mouth Medical tablet 13 nightly. [place] atorvastati Yes 40mg QD Take [address] [facility] [address] n (LIPITOR) 7-29 by mouth [facility] 40 MG 19:59: daily. Medical tablet 13 [place] bacitracin Yes QD Apply [facility] 500 7-29 topically [facility] unit/gram 19:59: daily. Medica l ointment 13 [place] trypsin-bal Yes Apply [facility] drake-castor 7-29 topically [facility] oil 19:59: 2 (two) Medical [id number] 13 times Center unit-mg-mg/ daily as gram Oint needed. bisacodyl Yes 10mg Place [address] [facility] (FLEET) 10 7-29 mg [facility] mg/30 mL 19:59: rectally Medic al Enem enema 13 once. [place] enoxaparin Yes 70mg Inject 70 [facility] [...] 10 mg 19:59: daily. Medical tablet 13 [place] melatonin 3 0 Yes 3mg Take [address] mg Tab 7-29 by mouth [facility] tablet 19:59: every Medical 13 night as Center needed. mirtazapine 0 Yes 15mg QD Take [address] [facility] [address] (REMERON) 7-29 by mouth [facility] 15 MG 19:59: nightly. Medical tablet 13 [place] ondansetron 0 Yes 4mg Take 4 mg [...] al 17 gram 13 Center packet senna 2018-0 Yes 2{tbl} QD Take [address] [facility] (SENOKOT) 7-29 tablets by Luke s 8.6 mg 19:59: mouth Medical tablet 13 nightly. [place] sertraline 0 Yes 100mg QD Take [address] (ZOLOFT) 7-29 mg by [facility] 100 MG 19:59: mouth Medical tablet 13 daily. Center whey 2018-0 Yes 7g Q.77294347 7 g by PEG [facility] protein 7-29 [id number] Tube route [facility] isolate 21 19:59: 3D 3 (three) Me dical gram-100 13 times Center kcal/27 daily. gram Kevin acetaminoph 2017-0 Yes 650mg Take [address] en 7-29 mg by [facility] (TYLENOL) 19:59: mouth Medical 325 MG 13 every 4 Center tablet (four) hours as needed for Pain. Lactobacill 2017-0 Yes 1{tbl} QD Take [address] us 7-29 tablet by LuODIN acidoph-L.b 19:59: mouth Medic al ulgar 13 daily. [facility] (FLORANEX) 1 million cell Tab per tablet bacitracin 2017-0 Yes QD Apply [facility] 500 7-29 topically [facility] unit/gram 19:59: daily. Medica l ointment 13 [place] sertraline 0 Yes 100mg QD Take [address] (ZOLOFT) 7-29 mg by [facility] 100 MG 19:59: mouth Medical tablet 13 daily. [place] whey 0 Yes 7g Q.02292340 7 g by PEG [facility] protein 7-29 [id number] Tube route [facility] isolate 21 19:59: 3D 3 (three) Me dical gram-100 13 times Center kcal/27 daily. gram Kevin trypsin-bal Yes Apply [facility] drake-castor 7-29 topically [facility] oil 19:59: 2 (two) [facility] 14-61-103 13 times Center unit-mg-mg/ daily as gram Oint needed. bisacodyl Yes 10mg Place [address] [facility] [address] (FLEET) 10 7-29 mg [facility] mg/30 mL 19:59: rectally Medic al Enem enema 13 once. [place] enoxaparin 0 Yes 70mg Inject 70 CH [...] 10 mg 19:59: daily. Medical tablet 13 [place] melatonin 3 0 Yes 3mg Take [address] mg Tab 7-29 by mouth [facility] tablet 19:59: every Medical 13 night as Center needed. mirtazapine 0 Yes 15mg QD Take [address] [facility] [address] (REMERON) 7-29 by mouth [facility] 15 MG 19:59: nightly. Medical tablet 13 [place] ondansetron 0 Yes 4mg Take 4 mg [...] 19:59: daily. Medic al 17 gram 13 [facility] packet senna 2017-0 Yes 2{tbl} QD Take [address] (SENOKOT) 7-29 tablets by Luke s 8.6 mg 19:59: mouth Medical tablet 13 nightly. [place] sertraline 0 Yes 100mg QD Take [address] (ZOLOFT) 7-29 mg by [facility] 100 MG 19:59: mouth Medical tablet 13 daily. [place] whey 0 Yes 7g Q.06341714 7 g by PEG [facility] protein 7-29 [id number] Tube route [facility] isolate 21 19:59: 3D 3 (three) Me [...] 40 MG 19:59: daily. Medical tablet 13 [place] bacitracin Yes QD Apply [facility] 500 7-29 topically [facility] unit/gram 19:59: daily. Medica l ointment 13 [place] trypsin-bal Yes Apply [facility] drake-castor 7-29 topically [facility] oil 19:59: 2 (two) Medical [id number] 13 times [place] unit-mg-mg/ daily as gram Oint needed. bisacodyl Yes 10mg Place [address] [facility] [address] (FLEET) 10 7-29 mg [facility] mg/30 mL 19:59: rectally Medic al Enem enema 13 once. [place] enoxaparin Yes 70mg Inject 70 [facility] [...] tablet 13 (two) Center times daily. loratadine 2018-0 Yes 10mg QD Take [address] (CLARITIN) 7-29 by mouth [facility] 10 mg 19:59: daily. Medical tablet 13 [place] melatonin 3 2018-0 Yes 3mg Take [address] mg Tab 7-29 by mouth [facility] tablet 19:59: every Medical 13 night as Center needed. mirtazapine 2018-0 Yes 15mg QD Take [address] [facility] [address] (REMERON) 7-29 by mouth [facility] 15 MG 19:59: nightly. Medical tablet 13 [place] ondansetron 0 Yes 4mg Take 4 mg [...] al 17 gram 13 Center packet senna 2017-0 Yes 2{tbl} QD Take [address] (SENOKOT) 7-29 tablets by Luke s 8.6 mg 19:59: mouth Medical tablet 13 nightly. [place] sertraline 20180 Yes 100mg QD Take [address] (ZOLOFT) 7-29 mg by [facility] 100 MG 19:59: mouth Medical tablet 13 daily. [place] whey 2018-0 Yes 7g Q.12183836 7 g by PEG [facility] protein 7-29 [id number] Tube route [facility] isolate 21 19:59: 3D 3 (three) Me dical gram-100 13 times Center kcal/27 daily. gram Powd acetaminoph 2018-0 Yes 650mg Take [address] en 7-29 mg by [facility] (TYLENOL) 19:59: mouth Medical 325 MG 13 every 4 Center tablet (four) hours as needed for Pain. Lactobacill Yes 1{tbl} QD Take [address] us 7-29 tablet by [facility] acidoph-L.b 19:59: mouth Medic al ulgar 13 daily. [facility] 1 million cell Tab per tablet atorvastati Yes 40mg QD Take [address] n (LIPITOR) 7-29 by mouth [facility] 40 MG 19:59: daily. Medical tablet 13 [place] bacitracin Yes QD Apply [facility] 500 7-29 topically [facility] unit/gram 19:59: daily. Medica l ointment 13 [place] trypsin-bal Yes Apply [facility] drake-castor 7-29 topically [facility] oil 19:59: 2 (two) Medical [id number] 13 times Center unit-mg-mg/ daily as gram Oint needed. bisacodyl Yes 10mg Place [address] [facility] (FLEET) 10 7-29 mg [facility] mg/30 mL 19:59: rectally Medic al Enem enema 13 once. [place] enoxaparin Yes 70mg Inject 70 [facility] [...] 10 mg 19:59: daily. Medical tablet 13 Center melatonin 3 Yes 3mg Take [address] mg Tab 7-29 by mouth [facility] tablet 19:59: every Medical 13 night as Center needed. mirtazapine 0 Yes 15mg QD Take [address] [facility] [address] (REMERON) 7-29 by mouth [facility] 15 MG 19:59: nightly. Medical tablet 13 [place] ondansetron Yes 4mg Take 4 mg C [...] 19:59: daily. Medic al 17 gram 13 [facility] packet senna Yes 2{tbl} QD Take [address] (SENOKOT) 7-29 tablets by Luke s 8.6 mg 19:59: mouth Medical tablet 13 nightly. [place] sertraline Yes 100mg QD Take [address] (ZOLOFT) 7-29 mg by [facility] 100 MG 19:59: mouth Medical tablet 13 daily. [place] whey Yes 7g Q.38758554 7 g by PEG [facility] protein 7-29 [id number] Tube route [facility] isolate 21 19:59: 3D 3 (three) Me dical gram-100 13 times [facility] kcal/27 daily. gram Powd acetaminoph 0 Yes 650mg Take [address] en 7-29 mg by [facility] (TYLENOL) 19:59: mouth Medical 325 MG 13 every 4 Center tablet (four) hours as needed for Pain. Lactobacill 0 Yes 1{tbl} QD Take [address] us 7-29 tablet by [facility]ukes acidoph-L.b 19:59: mouth Medic al ulgar 13 daily. [place] (FLORANEX) 1 million cell Tab per tablet atorvastati 0 Yes 40mg QD Take [address] n (LIPITOR) 7-29 by mouth Luke [facility] 40 MG 19:59: daily. Medical tablet 13 Center Procedures This patient has no known procedures. Encounters Start End Encounter Admission Attending Care Care Encounter Source Date/Time Date/Time Type Type Clinicians Facility Department ID 2020-06-26 Outpatient LARRY, [facility] [id number] [place] 13:50:36 [facility] 2020-06-26 Outpatient AT, [facility] [id number] [place] 07:30:01 [facility] 2021-08-19 2021-08-19 Outpatient [facility] [id number] [place] 02:21:00 02:21:00 HANA 0712 da [facility] Outre h Program 2020-12-13 2020-12-13 EXT [facility] OP [place], EXT MSRDP [id number] [place] 00:00:00 00:00:00 Rebeca M LOCATION [id number] Health [id number] 0 2020-06-25 2020-06-25 EXT [facility] OP [place], EXT MSRDP [id number] [place] 00:00:00 00:00:00 Rebeca M LOCATION [id number] Health [id number] 0 2020-06-25 2020-06-25 EXT [facility] OP [place], EXT MSRDP [id number] [place] 00:00:00 00:00:00 Rebeca M LOCATION [id number] Health [id number] 0 2020-06-19 2020-06-19 EXT [facility] OP [place], EXT MSRDP [id number] [place] 00:00:00 00:00:00 Rebeca M LOCATION [id number] Health [id number] 0 2020-06-19 2020-06-19 EXT [facility] OP [place], EXT MSRDP [id number] [place] 00:00:00 00:00:00 Rebeca M LOCATION [id number] Health [id number] 0 2020-03-19 2020-03-19 EXT [facility] OP [place], EXT MSRDP [id number] [place] 00:00:00 00:00:00 Rebeca M LOCATION [id number] Health [id number] 0 2020-03-19 2020-03-19 EXT [facility] OP [place], EXT MSRDP [id number] [place] 00:00:00 00:00:00 Rebeca M LOCATION [id number] Health [id number] 0 2018-06-23 2018-06-22 Inpatient E [facility] 7515 [facility] 04:46:00 20:30:00 2018-06-05 2018-06-05 Emergency E [facility] 9[address] [facility] 13:21:00 13:21:00 Results Test Description Test Time Test Comments Results Result Comments Source POCT-GLUCOSE METER 2017-09-05 05:32:00 Test Item Value Reference Range Interpretation Comme [facility] POC-GLUCOSE METER (BEAKER) (test 100 mg/dL 70-110 TESTED AT [facility] [address] [facility] code = 1538) [facility] [place] [address] [id number] 04:38:00 Test Item Value Reference Range Interpretation Comments PHOSPHORUS (BEAKER) (test code = 4.1 mg/dL 2.5-4.5 604) [id number] 04:38:00 Test Item Value Reference Range Interpretation Comments MAGNESIUM (BEAKER) (test code = 1.9 mg/dL 1.5-3.0 627) BASIC METABOLIC [id number] 04:38:00 Test Item Value Reference Range Interpretation Comments SODIUM (BEAKER) 141 meq/L 135-148 (test code = 381) POTASSIUM (BEAKER) 4.0 meq/L 3.5-5.5 (test code = 379) CHLORIDE (BEAKER) 107 meq/L 98-106 H (test code = 382) CO2 (BEAKER) (test 25 meq/L - code = 355) BLOOD UREA NITROGEN 12 [...] PATIEN TS. CBC W/PLT COUNT & AUTO [id number] 04:13:00 Test Item Value Reference Range Interpretation [...] L 0.00-0.20 (test code = 417) POCT-GLUCOSE [id number] 20:18:00 Test Item Value Reference Range Interpretation Comments POC-GLUCOSE METER 88 mg/dL 70-110 TESTED AT [facility] [address] [address] (BEAKER) (test code = [facility] 1538) [place] [address] POCT-GLUCOSE [id number] 18:01:00 Test Item Value Reference Range Interpretation Comments POC-GLUCOSE METER 104 mg/dL 70-110 TESTED AT [facility] [address] [address] (BEAKER) (test code [facility] = 1538) [place] [address] POCT-GLUCOSE [id number] 13:13:00 Test Item Value Reference Range Interpretation Comments POC-GLUCOSE METER 74 mg/dL 70-110 TESTED AT [address] (BEAKER) (test code = [facility] 1538) [place] [address] URINALYSIS W/ REFLEX URINE [id number] 02:14:00 Test Item Value Reference Range Interpretation [...] 1584) SOURCE(BEAKER) (test code = 2795) TROPONIN [id number] 00:41:00 Test Item Value Reference Range Interpretation [...] acute neurological disease, and persistent tachyarrhythmia.BASIC METABOLIC [id number] 00:37:00 Test Item Value Reference Range Interpretation [...] m DATA TO CALCULA TE ESTIMATED GFR. [id number] 00:33:00 Test Item Value Reference Range Interpretation Comments MAGNESIUM (BEAKER) 2.3 mg/dL 1.5-3.0 Specimen slightly (test code = 627) hemolyzed [id number] 00:33:00 Test Item Value Reference Range Interpretation Comments PHOSPHORUS (BEAKER) 3.8 mg/dL 2.5-4.5 Specimen slightly (test code = 604) hemolyzed CBC W/PLT COUNT & AUTO [id number] 00:18:00 Test Item Value Reference Range Interpretation [...] = 417) RAD, CHEST, 1 VIEW, NON [id number] 00:09:00Reason for exam:->ALTERED MENTAL STATUSShould this be [...] of the gastric body. Signed: Sumanth Sterling Verified Date/Time: 09/04/2017 00:09:13 Reading Location: [address] Transitional Reading Room CT, BRAIN, WITHOUT [id number] 00:01:00Reason for exam:- >ALTERED MENTAL STATUSWhat is [...] MDReport Verified Date/Time: 09/04/2017 00:01:45 Reading Location: [address] Reading Room
--- NOTE | 2022-10-18 05:03 | ER ---
Nurse's Notes [facility] Name: Elliot Hathaway Age: 62 yrs Sex: Male : 1960 Arrival Date: 10/18/2022 Time: 03:31 Bed 13 Private MD: Diagnosis: PEG tube replacement Presentation: 10/18 03:36 Chief complaint: EMS states: pt pulled at g tube at 2100 last night. Coronavirus as6 screen: At this time, the client does not indicate any symptoms associated with coronavirus-19. Ebola Screen: No symptoms or risks identified at this time. Initial Sepsis Screen: Does the patient meet any 2 criteria? No. Patient's initial sepsis screen is negative. Does the patient have a suspected source of infection? No. Patient's initial sepsis screen is negative. Risk Assessment: Do you want to hurt yourself or someone else? Patient reports no desire to harm self or others. Onset of symptoms was October 17, 2022 at 21:00. 03:36 Method Of Arrival: EMS: [facility] as6 03:36 Acuity: KRISTINE 4 as6 Triage Assessment: 03:40 General: Appears in no apparent distress. Behavior is calm. Pain: Unable to use pain bp scale. Does not appear to understand pain scale. GI: PEG tube. Historical: - PMHx: 03:38 Anxiety; brain injury; chronic respiratory failure with hypoxia; DYSPHAGIA; as6 GASTROSTOMY; HEART FAILURE; hemiplegia; Hyperlipidemia; MRSA; Seizures; - PSHx: 03:38 gastric tube; as6 - Immunization history:: Adult Immunizations up to date. - Social history:: Smoking status: Patient denies any tobacco usage or history of. - Family history:: not pertinent. Screenin:35 [facility] ED Fall Risk Assessment (Adult) History of falling in the last 3 months, bp including since admission No falls in past 3 months (0 pts). Abuse screen: Denies threats or abuse. Denies injuries from another. Nutritional screening: No deficits noted. Tuberculosis screening: No symptoms or risk factors identified. Assessment: 03:40 General: SEE TRIAGE NOTE. bp 05:24 Reassessment: IMLER CONTACTED FOR [facility] DISPATCHED FOR TRANSPORT. bp 07:00 Reassessment: per Luis Adams RN, d/c pending transport back to [facility] and xray kc6 results. 07:00 General: Appears in no apparent distress. comfortable, Behavior is calm, cooperative, kc6 appropriate for age. Neuro: Level of Consciousness is awake, alert, obeys commands, Oriented to person, place, time, situation, Appropriate for age. Cardiovascular: Capillary refill < 3 seconds. Respiratory: Airway is patent Trachea midline Respiratory effort is even, unlabored, Respiratory pattern is regular, symmetrical, Sputum is thin, clear tracheotomy in place. GI: No signs and/or symptoms were reported involving the gastrointestinal system. PEG tube in place, clamped. to gravity drainage. Site clean. : No signs and/or symptoms were reported regarding the genitourinary system. EENT: No signs and/or symptoms were reported regarding the EENT system. Derm: No signs and/or symptoms reported regarding the dermatologic system. Skin is intact, is healthy with good turgor, Skin is pink, warm \T\ dry. Wound noted buttocks Wound is covered in dressings that are clean, dry and intact without redness, swelling or drainage. Musculoskeletal: No signs and/or symptoms reported regarding the musculoskeletal system. Circulation, motion, and sensation intact. Capillary refill < 3 seconds. 07:44 Reassessment: spoke with Mckenzie from [facility]. ETA for [facility] is 0900. spoke kcDrain with respiratory, stated she will be here in 30min for assistance with trach suctioning. 08:00 Reassessment: Patient appears in no apparent distress at this time. No changes from kc6 previously documented assessment. Patient and/or family updated on plan of care and expected duration. Pain level reassessed. Patient is alert, oriented x 3, equal unlabored respirations, skin warm/dry/pink. 09:00 Reassessment: Patient appears in no apparent distress at this time. No changes from kc6 previously documented assessment. Patient and/or family updated on plan of care and expected duration. Pain level reassessed. Patient is alert, oriented x 3, equal unlabored respirations, skin warm/dry/pink. Vital Signs: 03:36 BP 135 / 59; Pulse 80; Resp 18; Temp 98.1; Pulse Ox 97% ; Weight 54.43 kg; as6 05:24 BP 105 / 70; Pulse 77; Resp 16; Pulse Ox 100% ; bp 07:18 BP 113 / 80; Pulse 89; Resp 19 S; Pulse Ox 94% ; kc6 08:22 BP 123 / 72; Pulse 91; Resp 18 S; Pulse Ox 96% ; kc6 09:36 BP 119 / 79; Pulse 85; Resp 17 S; Pulse Ox 97% ; kc6 ED Course: 03:33 Patient arrived in ED. jj6 03:37 Triage completed. as6 03:38 Luis Adams, RN is Primary Nurse. bp 03:38 Arm band placed on. as6 03:42 Trevor Riggs MD is Attending Physician. rt 04:35 Patient has correct armband on for positive identification. Bed in low position. Call bp light in reach. Side rails up X2. 05:07 ENTEROSTOMY TUBE CHECK W/CONTR In Process Unspecified. EDMS 05:24 No provider procedures requiring assistance completed. Patient did not have IV access bp during this emergency room visit. 07:00 Report received from Luis Adams RN. kc6 08:51 Suctioned via trachea - small amount thin clear sputum with respiratory at bedside. kc6 Administered Medications: No medications were administered Medication: 05:24 VIS not applicable for this client. bp Outcome: 05:03 Discharge ordered by MD. rt 05:24 Discharged to retirement. Transfer form completed. bp 05:24 Condition: stable 05:24 Discharge instructions given to retirement. 09:43 Patient left the ED. kc6 Signatures: Dispatcher [employer] EDMS Luis Adams, RN RN Josefina Moran [email or web address] Joseph Mortensen RN RN asJerrica Ragsdale RN RN kc6 Trevor Riggs MD MD rt Corrections: (The following items were deleted from the chart) 08:21 07:00 GI: No signs and/or symptoms were reported involving the gastrointestinal system. kc6 kc6 08:21 07:00 Respiratory: Airway is patent Trachea midline Respiratory effort is even, kc6 unlabored, Respiratory pattern is regular, symmetrical, tracheotomy in place kc6 08:21 07:00 Derm: No signs and/or symptoms reported regarding the dermatologic system. Skin kc6 is intact, is healthy with good turgor, Skin is pink, warm \T\ dry. kc6 08:22 07:44 Reassessment: spoke with Mckenzie from [facility]. ETA for [facility] is 0900 [id number]
--- NOTE | 2022-10-18 05:03 | EDPHYS ---
Physician Documentation [facility] Name: Elliot Hathaway Age: 62 yrs Sex: Male : 1960 Arrival Date: 10/18/2022 Time: 03:31 Bed 13 Private MD: ED Physician Trevor Riggs HPI: 10/18 04:53 This 62 yrs old Male presents to ER via EMS with complaints of Displaced G-tube. rt 04:53 Patient presents to the ED with a displaced G-tube. Velazquez catheter was placed to hold rt the place open. History is limited due to nonverbal status, but, no other complaints were identified. Symptoms are mild in severity, no other aggravating alleviating factors.. Historical: - PMHx: 03:38 Anxiety; brain injury; chronic respiratory failure with hypoxia; DYSPHAGIA; as6 GASTROSTOMY; HEART FAILURE; hemiplegia; Hyperlipidemia; MRSA; Seizures; - PSHx: 03:38 gastric tube; as6 - Immunization history:: Adult Immunizations up to date. - Social history:: Smoking status: Patient denies any tobacco usage or history of. - Family history:: not pertinent. ROS: 04:53 Unable to obtain ROS due to Nonverbal patient. rt Exam: 04:53 Constitutional: This is a well developed, well nourished patient who is awake, alert, rt and in no acute distress. Chest/axilla: Normal chest wall appearance and motion. Nontender with no deformity. No lesions are appreciated. Cardiovascular: Regular rate and rhythm with a normal S1 and S2. No gallops, murmurs, or rubs. Normal PMI, no JVD. No pulse deficits. Respiratory: Lungs have equal breath sounds bilaterally, clear to auscultation and percussion. No rales, rhonchi or wheezes noted. No increased work of breathing, no retractions or nasal flaring. Skin: Warm, dry with normal turgor. Normal color with no rashes, no lesions, and no evidence of cellulitis. 04:53 Abdomen/GI: No abdominal tenderness, Velazquez catheter is in place for PEG tube site.. Vital Signs: 03:36 BP 135 / 59; Pulse 80; Resp 18; Temp 98.1; Pulse Ox 97% ; Weight 54.43 kg; as6 05:24 BP 105 / 70; Pulse 77; Resp 16; Pulse Ox 100% ; bp 07:18 BP 113 / 80; Pulse 89; Resp 19 S; Pulse Ox 94% ; kc6 08:22 BP 123 / 72; Pulse 91; Resp 18 S; Pulse Ox 96% ; kc6 09:36 BP 119 / 79; Pulse 85; Resp 17 S; Pulse Ox 97% ; kc6 Procedures: 04:53 G-tube placement: a 16 [place] catheter was placed, by the ED physician, Trevor chavarria MD. MDM: 03:43 Patient medically screened. rt 05:03 Differential Diagnosis PEG tube replacement. Data reviewed: vital signs, nurses notes. rt Independent interpretation of the following test(s) in the Emergency Department X-Ray: My interpretation is PEG tube is in appropriate place. Counseling: I had a detailed discussion with the patient and/or guardian regarding the historical points, exam findings, and any diagnostic results supporting the discharge/admit diagnosis, radiology results, the need for outpatient follow up. 10/18 05:07 Order name: ENTEROSTOMY TUBE CHECK W/CONTR; Complete Time: 07:44 EDMS Administered Medications: No medications were administered Disposition Summary: 10/18/22 05:03 Discharge Ordered Location: Home rt Problem: an ongoing problem rt Symptoms: have improved rt Condition: Stable rt Diagnosis - PEG tube replacement rt Followup: rt - With: Private Physician - When: As needed - Reason: Discharge Instructions: - Discharge Summary Sheet rt - PEG Tube Home Guide rt Forms: - Medication Reconciliation Form rt - Thank You Letter rt - Antibiotic Education rt - Prescription Opioid Use rt - Patient Portal Instructions rt - Leadership Thank You Letter rt Signatures: Dispatcher [employer] Joseph Rosales RN RN as6 Trevor Riggs MD MD rt Corrections: (The following items were deleted from the chart) 05:06 04:20 Abdomen 1 View+[email or web address] ordered. EDMS VALENZULEA
--- NOTE | 2022-10-18 07:29 | RAD REPORT ---
EXAM DESCRIPTION: RAD - ENTEROSTOMY TUBE CHECK W/CONTR - 10/18/2022 5:06 am CLINICAL HISTORY: gastrograffin peg tube test COMPARISON: Upper GI Series Wo KUB dated 10/14/2022; Chest Single View dated 10/14/2022 TECHNIQUE: Single AP view of the abdomen. FINDINGS: Iodine contrast injected through the PEG tube opacifies the nondistended gastric fundus an d body. No evidence of extraluminal contrast. The filling defect related to a balloon or hub seen on the prior exam is not visualized today. Nonobstructive bowel gas pattern. No air-fluid levels, free air, or pneumatosis. No suspicious calcif ications. No significant bony abnormality. IMPRESSION: Satisfactory contrast opacification of the stomach through the PEG tube. No evidence of extraluminal contrast. .
[2022-10-18 09:51] VITALS: TEMP 98.1
[2022-10-18 09:57] VITALS: BP 119/79; O2SAT 97
== END 2022-10-18 09:43 | disposition home or self-care (01) ==
LOC: ER 03:31
PROC: 0D20XUZ Change Feeding Device in Upper Intestinal Tract, External Approach (ICD-10-PCS; principal; 2022-10-18)
DX: K94.23 Gastrostomy malfunction (principal); G81.90 Hemiplegia, unspecified affecting unspecified side; E78.5 Hyperlipidemia, unspecified; F41.9 Anxiety disorder, unspecified; R56.9 Unspecified convulsions; Z87.820 Personal history of traumatic brain injury
CPT/HCPCS: 49465; 99284

== ENCOUNTER 2022-12-21 19:33 | Inpatient (IN) | payer OTHER ==
--- OUTSIDE RECORDS SUMMARY | 2022-12-21 19:42 | XMS REPORT | Continuity of Care Document ---
:1960 Author Organization [facility] t Address [address] [place] [address] [address] [place] [address] Care Team Providers Name Role Phone No , Pcp Primary Care Physician Unavailable SOPHIE LAZCANO Attending Clinician Unavailable REBECA JUAREZ Attending Clinician Unavailable Doctor Unassigned, [place] Attending Clinician Unavailable Becca Dempsey RN Attending [...] Attending Clinician Kristie Martin MD Attending Clinician AMBREEN_KEYON Attending Clinician Unavailable KRISTIE MARTIN Attending Clinician Unavailable Amos Andrews DO Attending Clinician AMOS ANDREWS Attending Clinician Unavailable Chinmay Hill RN A Attending Clinician Unavailable Sam Balbuena DO Attending Clinician Kiet Madera MD Attending Clinician Paty Joseph Attending Clinician Taylor Snow LMSW Attending Clinician Sophie Lazcano MD Attending Clinician [place], Adc Test Attending Clinician Unavailable Denny Hammer DO Attending Clinician RAIZA RUSH Attending Clinician Unavailable Raiza Rush MD Attending Clinician [phone] Gema Thomson DPM Attending Clinician [phone] GEMA THOMSON Attending Clinician Unavailable Madonna Garcia MD Attending Clinician MADONNA GARCIA Attending Clinician Unavailable Feli White DO Attending Clinician Eboni Christianson Attending Clinician EBONI COFFMAN Attending Clinician Unavailable Pavan Craig MD Attending Clinician PAVAN CRAIG Attending Clinician Unavailable Kayla Lucas Attending Clinician Unavailable Sobia Ace MD Attending Clinician SOBIA ACE Attending Clinician Unavailable [facility], Adc Cardio Fac Attending Clinician Unavailable , Adc Cardio Fac Room Attending Clinician Unavailable Ryland YORK, Sendil K.H. Attending Clinician King CHELA, Andi Quinones Attending Clinician Ricky Sher MD Attending Clinician Eliu Wallace MD Attending Clinician JONATHAN LING Attending Clinician Unavailable ROSALIE MAGAÑA Attending Clinician Unavailable SOPHIE LAZCANO Admitting Clinician Unavailable NATALIE CHOPRA Admitting Clinician Unavailable Natalie Chopra MD Admitting Clinician LYNN ABRAHAM Admitting Clinician Unavailable NEVA MACHUCA Admitting Clinician Unavailable AMBREEN_CHICOHANA Admitting Clinician Unavailable EVELYN VALENCIA Admitting Clinician Unavailable Sam Balbuena DO Admitting Clinician Sophie Lazcano MD Admitting Clinician SOBIA ACE Admitting Clinician Unavailable Ricky Sher MD Admitting Clinician Eliu Wallace MD Admitting Clinician FARNAZ DELGADO Admitting Clinician Unavailable Payers Payer Name Policy Type Policy Number Effective Date Expiration Date [facility] [id number] 2017 CHOICE 00:00:00 [facility] [id number] 2017 00:00:00 [facility] [employer] [id number] 2019 00:00:00 Problems Condition Condition Condition Status [...] 00 Medical Branch Sepsis Sepsis Disease Active 2021-0 Univers 7-12 ity of 00:00: [place] [facility] Tracheosto Tracheosto Disease Active U nivers my status my status 5-13 ity of 00:00: [place] [facility] Hospice Hospice Disease Active Overview: Univ ers care care 3-05 Formattin ity of patient patient 00:00: g of this [place] 00 note Medical might be Branch different from the original. Added automatic ally from request for surgery [id number] Encounter Encounter Disease Active 2019-02 Uni vers for for 111 ity of screening screening 00:00[place] for for 00 Medical malignant malignant Bran ch neoplasm neoplasm of lung of lung Anxiety, Anxiety, Disease Active 2019-02 Unive rs generalize generalize 11 it y of d d 00:00: [place] [facility] Agitation Agitation Disease Active 2019-02 Uni vers states as states as -11 ity of acute acute 00:00: [place] reaction reaction 00 Medica l to to Branch exceptiona exceptiona l (gross) l (gross) stress stress Spasticity Spasticity Disease Active 2019- U nivers 7-01 ity of 00:00: [place] [facility] Fungal Fungal Disease Active Univers nail nail 7-01 ity of infection infection 00:00[place] Change in Change in Disease Active Uni vers nail nail 7-01 ity of appearance appearance 00:00: [place] Paralysis Paralysis Disease Active 2019- Uni vers 4-28 ity of 00:00: [place] 00 Medical Branch Pneumoniti Pneumoniti Disease Active 2020- U nivers s due to s due to 4-28 ity of inhalation inhalation 00:00: [place] of food or of food or 00 Me dical vomitus vomitus Branch Clostridiu Clostridiu Disease Active 2018- U tarun m m 2-16 ity of difficile difficile 00:00: [place] diarrhea diarrhea 00 Medica l Branch Cardiomyop Cardiomyop Disease Active 2018- U tarun athy, athy, 2-16 ity of unspecifie unspecifie 00:00: [place] d type d type 00 Medical Branch E44.1 Mild E44.1 Mild Disease Active 2018- U tarun protein-ca protein-ca 1-26 it y of esperanza mata 00:00: [place] malnutriti malnutriti 00 Me dical on on Branch Chronic Chronic Disease Active Univers congestive [...] c pain c pain 00:00: [place] 00 [facility]31 it[facility] of follow-up follow-up 00:[place] [facility] E44.0 E44.0 Disease Active Univers Moderate Moderate 9-13 ity of protein protein 00:00: [place] calorie calorie 00 Medical malnutriti malnutriti Br anch on on Other Other Disease Active Univers pulmonary pulmonary 6 ity of embolism embolism 00:00: [place] without without 00 Medical acute cor acute cor Bran ch pulmonale, pulmonale, unspecifie unspecifie d d chronicity chronicity Septic Septic Disease Active Univers shock shock 6-03 ity of 00:00: [place] [facility] NSTEMI NSTEMI Disease Active Univers (non-ST (non-ST 6-03 ity of elevated elevated 00:00: [place] myocardial myocardial 00 Me dical infarction infarction Br anch ) ) Acute Acute Disease Active Univers respirator respirator 5-24 it y of y failure y failure 00:00: [place] [facility] E46 E46 Disease Active Univers Unspecifie Unspecifie 5-08 it y of d severe d severe 00:00: [place] protein-ca protein-ca [facility] malnutriti malnutriti on on HCAP HCAP Disease Active Univers (healthcar (healthcar 4-23 it y of e-associat e-associat 00:00: [place] ed ed 00 Medical pneumonia) pneumonia) Br anch Syncope Syncope Disease Active Univers 1-24 ity of 00:00: [place] 00 Medical Branch Shortness Shortness Disease Active Uni vers of breath of breath 1-16 ity of 00:00: [place] 00 Medical Branch Aspiration Aspiration Disease Active U nivers pneumonia pneumonia 1-03 ity of 00:00: [place] [facility] Hypoxia Hypoxia Disease Active 2017-02 Univers 2-24 ity of 00:00: [place] 00 Medical Branch RLL RLL Disease Active 2017-02 Univers pneumonia pneumonia 2-19 ity of 00:00: [place] 00 Medical Branch Seizures Seizures Disease Active 2017-02 Unive rs 0-09 ity of 00:00: [place] 00 Medical Branch Infection Infection Disease Active 2017-02 Uni vers 0-02 ity of 00:00: [place] 00 Medical Branch Complicate Complicate Disease Active U nivers d UTI d UTI 8 ity of (urinary (urinary 00:00: [place] tract tract 00 Medical infection) infection) Br anch Infection Infection Disease Active Uni vers of scalp of scalp 8 ity of 00:00: [place] [facility] Hepatitis Hepatitis Disease Recurre Un desirae C virus C virus nce 8 ity of infection infection 00:00: [place] [facility] Aphasia Aphasia Disease Recurre Univer s with TBI with TBI nce 8 ity of (traumatic (traumatic 00:00: [place] brain brain 00 Medical injury), injury), Branch open open Generalize Generalize Disease Active U nivers d d 8 ity of tonic-clon tonic-clon 00:00: [place] ic seizure ic seizure 00 Ms dical Branch Acute Acute Disease Active Univers cystitis cystitis 8 ity of without without 00:00: [place] hematuria hematuria 00 [facility] Branch History of History of Disease Recurre Univers trephinati trephinati nce 09-08 it y of on of on of 00:00: [place] cranium cranium 00 Medical Branch Generalize Generalize Disease Active U nivers d d 09-08 ity of tonic-clon tonic-clon 00:00: [place] ic seizure ic seizure 00 Me dical Branch Altered Altered Disease Active [facility] state state 00:00: Medical 00 Center S/P S/P Disease Active [facility] cr[facility]otomy craniotomy 09-04 [facility] 00:00: Medical 00 Center Altered Altered Disease Active Univers mental mental 6-04 ity of status status 00:00: [place] 00 Medical Branch Open wound Open wound Disease Active Overview : Univers of scalp, of scalp, 5- Formattin i ty of unspecifie unspecifie 00:00: g of this [place] d open d open 00 note Medical wound wound might be Branch type, type, different initial initial from the encounter encounter original. Added automatic ally from request for surgery [id number] Osteomyeli Osteomyeli Disease Active U tarun tis of tis of 2-04 ity of skull skull 00:00: [place] 00 Medical Branch Abscess Abscess Disease Active Univers 1-31 ity of 00:00: [place] 00 Medical Branch PEG tube PEG tube Disease Active Unive rs malfunctio malfunctio 1-28 it y of n n 00:00: [place] [facility] Scalp Scalp Disease Active Univers abscess abscess 1-28 ity of 00:00: [place] 00 Medical Branch Morbid Morbid Disease Active Univers obesity obesity 1-28 ity of with body with body 00:00: [facility] s mass index mass index 00 Me dical of 50 or of 50 or Branch higher higher PEG PEG Disease Active Univers (percutane (percutane 1-27 it y of ous ous 00:00: [place] endoscopic endoscopic 00 Me dical gastrostom gastrostom [...] is, 007 ity of unspecifie unspecifie 00:00: Luis santiago d type d type 00 Medical Branch Acute Acute Disease Active 2016-02 [facility] respirator respirator 0- it y of y failure y failure 00:00: Erika s with with 00 Medical hypoxia hypoxia Branch Subdural Subdural Disease Active Unive rs hemorrhage hemorrhage 11-03 it y of 00:00: [place] 00 Medical Branch Skull Skull Disease Active [facility] fracture fracture 11-03 ity of with with [...] it y of 00:00: [place] 00 [facility] Traumatic Traumatic Disease Active Uni vers subarachno subarachno 11-03 it y of id bleed id bleed 00:00: [place] with LOC with LOC 00 Medica l of 6 hours of 6 hours Br anch to 24 to 24 hours, hours, initial initial encounter encounter S/P S/P Disease Active [facility] craniotomy craniotomy 11-03 it y of 00:00: [place] 00 Medical Branch Aftercare Aftercare Disease Active Uni vers following following 11-03 ity of surgery of surgery of 00:00: Luis santiago the the Medical nervous nervous Branch system [...] Added automatic ally from request for surgery [id number] Impotence Impotence Disease Recurre 2010-02 Un desirae of organic of organic nce 02-28 it y of origin origin 00:00: [place] 00 Medical Branch Allergies, Adverse Reactions, Alerts Allergy Allergy Status Severity Reaction(s) Onset Inactive Treating Comm ents Source Name Type Date Date Clinician NO KNOWN Drug Active Univers ALLERGIE Class ity of S [place] [facility] Social History Social Habit Start Date Stop Date Quantity Comments Source History of tobacco Current smoker Un iversity of use [place] [facility] History SDOH Social Unive rsity of Connections Get [place] Med ical Together Branch History SDOH Social Unive rsity of Connections [facility] Medical Branch History SDOH Social Unive rsity of Connections [place] [facility] Membership Branch History SDOH Social Unive rsity of Connections [place] [facility] Meetings Branch Sexual orientation [facility] History SDOH 2022-05-25 2022-05-25 1 University o [...] Unive rsity of Connections Phone 00:00:00 00:00:00 [facility] edical Branch History SDMS Social 2022-05-25 2022-05-25 98 Unive rsity of Connections Living 00:00:00 00:00:00 [place] [facility] History SDOH 2022-05-25 2022-05-25 2 University o f Housing Unable to 00:00:00 00:00:00 [facility] edical Pay Branch History SDMS 2022-05-25 2022-05-25 1 University o f Housing Places 00:00:00 00:00:00 [facility] Lived Branch History SDMS 2022-05-25 2022-05-25 2 University o f Housing Homeless 00:00:00 00:00:00 [facility] dical Last Year Branch History [facility] 2022-02-02 2022-02-02 0 University o f Alcohol Std Drinks 00:00:00 00:00:00 [place] [facility] History [facility] 2022-02-02 2022-02-02 1 University o f Alcohol Binge 00:00:00 00:00:00 [facility] al Branch Exposure to 2021-09-30 2021-10-10 Not sure University of SARS-CoV-2 (event) 00:00:00 03:27:00 [facility] History of Social 2019-08-30 2019-08-30 Univers ity of function 00:00:00 00:00:00 [facility] Tobacco Comment 2018-01-31 2018-01-31 cigar smoker, Univer sity of 00:00:00 00:00:00 quit after TBI [facility] Alcohol intake 2017-09-04 2017-09-[address] [facility] [facility] 00:00:00 00:00:00 non-drinker of Medical Ce nter alcohol (finding) Tobacco use and 2017-09-04 2017-09-[address] [facility] [address] [facility] exposure 00:00:00 00:00:00 tobacco non-user [facility] Sex Assigned At [address] [facility] 00:00:00 00:00:00 [facility] Center Smoking Status Start Date Stop Date Source Tobacco smoking [facility] consumption unknown Ex-smoker 2018-01-31 00:00:00 2018-01-31 University o f [place] 00:00:00 Medical Branch Never smoked tobacco [facility] Medications Ordered Filled Start Stop Current Ordering [...] ity of & Bulgar 1 13:22: mouth. [place] million 00 Medical cell Tab Branch LORazepam [...] of & Bulgar 1 13:22: mouth. million Medical cell Tab Branch LORazepam Yes .5mg [...] ity of & Bulgar 1 13:22: mouth. [place] million Medical cell Tab Branch LORazepam Yes .5mg Take 0.5 Univ ers (ATIVAN) 4-20 mg by ity of 0.5 mg 13:22: mouth. [place] tablet Take two Medical at bed Branch [...] mg by ity of tablet 13:22: mouth. [place] [facility] Polyethylen Yes 17g Take 17 g U nivers e Glycol 4-20 by mouth. ity of 3350 17 13:22: [place] gram powder 00 Medical Branch whey Yes 7g Take 7 g Univers protein 4-20 through ity of isolate 21 13:22: feeding [place] gram-100 00 tube. Medical kcal/27 Branch gram Powd Lactobacill Yes 1{tbl} Take 1 Un desirae us Acidoph 4-20 tablet by ity of & Bulgar 1 13:22: mouth. [facility] Medical cell Tab Branch LORazepam Yes .5mg Take 0.5 Univ ers (ATIVAN) 4-20 mg by ity of 0.5 mg 13:22: mouth. [place] tablet Take two Medical at bed Branch [...] s: Taken via Peg-tube not oral. SERTraline 0 Yes 100mg Take 100 Un desirae 100 mg 4-20 mg by ity of tablet 13:22: mouth. Medical Branch Polyethylen Yes 17g Take 17 g U nivers e Glycol 4-20 by mouth. ity of 3350 17 13:22: [place] gram powder 00 Medical Branch whey 0 Yes 7g Take 7 g Univers protein 4-20 through ity of isolate 21 13:22: feeding [place] gram-100 00 tube. Medical kcal/27 Branch gram Powd Lactobacill Yes 1{tbl} Take 1 Un desirae us Acidoph 4-20 tablet by ity of & Bulgar 1 13:22: mouth. [place] million 00 Medical cell Tab Branch LORazepam [...] time and one at 2 am proMETHazin 2022- Yes 25mg Take 25 mg Univers e 25 mg 4-20 by mouth ity of tablet 13:22: every 4 (four) Medical hours as Branch needed for Nausea and Vomiting (N/V). aspirin 81 0 Yes 81mg 81 mg Univer s mg EC 4-20 every 3 ity of tablet 13:22: (three) days. Medical Indication Branch s: Taken via Peg-tube not oral. SERTraline 0 Yes 100mg Take 100 Un desirae 100 mg 4-20 mg by ity of tablet 13:22: mouth. [place] 00 Medical Branch Polyethylen Yes 17g Take 17 g U nivers e Glycol 4-20 by mouth. ity of 3350 17 13:22: [place] gram powder 00 Medical Branch whey 0 Yes 7g Take 7 g Univers protein 4-20 through ity of isolate 21 13:22: feeding [place] gram-100 00 tube. Medical kcal/27 Branch gram Powd Lactobacill Yes 1{tbl} Take 1 Un desirae us Acidoph 4-20 tablet by ity of & Bulgar 1 13:22: mouth. [place] million 00 Medical cell Tab Branch LORazepam Yes .5mg Take 0.5 Univ ers (ATIVAN) 4-20 mg by ity of 0.5 mg 13:22: mouth. [place] tablet 00 Take two Medical at bed [...] mouth ity of tablet 13:22: every 4 00 (four) Medical hours as Branch needed for Nausea and Vomiting (N/V). sennosides 2022-0 2022- No 2{tbl} Take 2 Un desirae 8.6 mg 4-19 04-19 tablets by ity of tablet 13:36: 00:00 mouth. [place] 17 :00 Medical Branch morpHINE 2022-0 2022- No 20mg Take 20 mg Un desirae CONC 100 4-19 04-19 by mouth ity of mg/5 mL (20 13:36: 00:00 every 12 [place] mg/mL) 17 :00 (twelve) Medical concentrate hours as Bran ch d solution needed. sennosides Yes 8.6mg Take 1 Univ ers 8.6 mg 4-19 tablet ity of tablet 00:00: through [place] 00 enteral Medical tube in Branch the morning. morpHINE Yes 5224 16mg Take 0.8 Unive rs CONCENTRATE 4-19 mL by ity of 100 mg/5 mL 00:00: mouth [place] (20 mg/mL) 00 every 6 Medica l oral (six) Branch solution hours. Indication s: chronic pain sennosides 3-0 Yes 8.6mg Take 1 Univ ers 8.6 mg 4-19 tablet ity of tablet 00:00: through [place] 00 enteral Medical tube in Branch the morning. morpHINE 2023-0 Yes 5224 16mg Take 0.8 Unive rs CONCENTRATE 4-19 mL by ity of 100 mg/5 mL 00:00: mouth [place] (20 mg/mL) 00 every 6 Medica l oral (six) Branch solution hours. Indication s: chronic pain sennosides 2022-0 Yes 8.6mg Take 1 Univ ers 8.6 mg 4-19 tablet ity of tablet 00:00: through [place] 00 enteral Medical tube in Branch the morning. morpHINE 3-0 Yes 5224 16mg Take 0.8 Unive rs CONCENTRATE 4-19 mL by ity of 100 mg/5 mL 00:00: mouth [place] (20 mg/mL) 00 every 6 Medica l oral (six) Branch solution hours. Indication s: chronic pain sennosides 2022-0 Yes 8.6mg Take 1 Univ ers 8.6 mg 4-19 tablet ity of tablet 00:00: through [place] 00 enteral Medical tube in Branch the morning. morpHINE 3-0 Yes 5224 16mg Take 0.8 Unive rs CONCENTRATE 4-19 mL by ity of 100 mg/5 mL 00:00: mouth [place] (20 mg/mL) 00 every 6 Medica l oral (six) Branch solution hours. Indication s: chronic pain bisacodyL 2022-0 Yes 10mg 10 mg, Univer s (DULCOLAX) -18 Rectal, ity of suppository 02:00: QHS, First [place] 10 mg 00 dose on Medical [facility] Branch 05/25/22 at 2100, Until Discontinu ed, Routine lactated 2022-0 2023- No 500mL at 150 Unive rs ringers IV -18 04-18 mL/hr, 500 it y of infusion 02:00: 02:50 mL, [place] 500 mL 00 :50 Intravenou Medical s, ONCE, 1 Branch dose, On [facility] 05/25/22 at 2100, Routine acetaminoph 2023-0 Yes 650mg 650 mg, Un desirae en 05-25 Enteral, ity of (TYLENOL) 23:00: Q6H, First [place] tablet 650 00 dose Medical mg (after Branch last modificati on) on Wed05/25/22 at 1800, Until Discontinu ed, Routine enoxaparin 0 Yes 40mg 40 mg, Unive rs (LOVENOX) 05-25 Subcutaneo ity of injection 22:00: us, DAILY, [place] 40 mg 00 First dose Medical on [facility] 05/25/22 at 1700, Until Discontinu ed, Routine morpHINE 10 Yes 15mg 15 mg, Univ ers mg/5 mL 05-25 Enteral, ity of oral 20:15: Q6H, First [place] solution 15 00 dose on Medic al mg [facility] 05/25/22 at 1515, Until Discontinu ed, Routine naloxone Yes .4mg 0.4 mg, Univer s (NARCAN) 05-25 Slow IV ity of injection 18:45: Push, PRN José Miguel as 0.4 mg 00 - SEE Medical INSTRUCTIO Branch NS, Starting on Wed05/25/22 at 1345, Until Discontinu ed, Routine, Sedation/R espiratory Depression LORazepam Yes 1mg 1 mg, Univers (ATIVAN) 05-25 Enteral, ity of tablet 1 mg 18:14: TIDPRN, [place] as 35 Starting Medical on Wed [place] 05/25/22 at 1314, Until Discontinu ed, Routine, Anxiety, Agitation lactated 2022- No 1000mL at 150 Univ ers ringers IV 05-25 04-17 mL/hr, ity of infusion 17:15: 17:03 1,000 mL, [place] as 1,000 mL 00 :55 Intravenou Medic al s, ONCE, 1 Branch dose, On Wed05/25/22 at 1215, Routine artificial Yes 1[drp] 1 Drop, Un desirae tears(hypro 05-25 Both Eyes, it y of mellose) 14:00: DAILY, [place] (ISOPTO-TEA 00 First dose Me dical RS) 0.5 % on Wed [place] ophthalmic 05/25/22 at drops 1 0900, Drop [...] it y of nebulizer 13:00: , TID, solution First dose Medic al 0.31 mg on Wed05/25/22 at 0800, Until Discontinu ed, Routine lactated 2022- No 1000mL at 999 Univ ers ringers IV 05-25 mL/hr, ity of infusion 13:00: 13:04 1,000 mL, [place] as 1,000 mL 00 :03 Intravenou Medic al s, ONCE, 1 Branch dose, On Wed05/25/22 at 0800, Routine ondansetron 2022- No 4mg 4 mg, Slow Univers (ZOFRAN 05-25 IV Push, ity of (PF)) 11:30: 11:37 ONCE, On [place] injection 4 00 :00 Mon Medical mg 05/25/22 at Branch 0630, For 1 dose
Do ses of ondansetro n 16 mg and above need to be administer ed via IV piggyback. For Dose >=24mg ECG monitoring is advisable.
guaiFENesin Yes 100mg 100 mg, Un desirae 100 mg/5 mL 05-25 Enteral, ity of solution 11:00: Q8H, First [place] Miguel as 100 mg 00 dose Medical (after Branch last modificati on) on Wed05/25/22 at 0600, Until Discontinu ed, Routine hyoscyamine Yes .125mg 0.125 mg, Univers sulfate 05-25 Sublingual ity of (LEVSIN/SL) 10:11: , Q4HPRN, [place] sublingual 14 Starting Medic al tablet on Wed 0.125 mg 05/25/22 at 0511, Until Discontinu ed, Routine, secretions aspirin 81 0 Yes 81mg 81 mg Univer s mg EC 1-11 every 3 ity of tablet 16:11: (three) [place] 19 days. Medical Indication Branch s: Taken via Peg-tube not oral. SERTraline Yes 100mg Take 100 Un desirae 100 mg 1-11 mg by ity of tablet 16:11: mouth. [place] 19 Medical Branch Polyethylen Yes 17g Take 17 g U nivers e Glycol 1-11 by mouth. ity of 3350 17 16:11: [place] gram powder 19 Medical Branch whey Yes 7g Take 7 g Univers protein 1-11 through ity of isolate 21 16:11: feeding [place] gram-100 19 tube. Medical kcal/27 Branch gram Powd sennosides Yes 2{tbl} Take 2 Uni vers 8.6 mg 1-11 tablets by ity of tablet 16:11: mouth. [place] 19 Medical Branch Lactobacill Yes 1{tbl} Take 1 Un desirae us Acidoph 1-11 tablet by ity of & Bulgar 1 16:11: mouth. [facility] 19 Medical cell Tab Branch morpHINE Yes 20mg Take 20 mg Uni vers CONC 100 1-11 by mouth ity of mg/5 mL (20 16:11: every 12 [place] mg/mL) 19 (twelve) Medical concentrate hours as Bran ch d solution needed. LORazepam Yes .5mg Take 0.5 Univ ers (ATIVAN) 1-11 mg by ity of 0.5 mg 16:11: mouth. [place] tablet 19 Take two Medical at bed Branch time, One during the day for agiation hyoscyamine [address] Uni vers sulfate 1-11 [...] every 3 ity of tablet 16:11: (three) [place] 19 days. Medical Indication Branch s: Taken via Peg-tube not oral. SERTraline Yes 100mg Take 100 Un desirae 100 mg 1-11 mg by ity of tablet 16:11: mouth. [place] 19 Medical Branch Polyethylen 0 Yes 17g Take 17 g U nivers e Glycol 1-11 by mouth. ity of 3350 17 16:11: [place] gram powder 19 Medical Branch whey Yes 7g Take 7 g Univers protein 1-11 through ity of isolate 21 16:11: feeding [place] gram-100 19 tube. Medical kcal/27 Branch gram Powd sennosides Yes 2{tbl} Take 2 Uni vers 8.6 mg 1-11 tablets by ity of tablet 16:11: mouth. [place] 19 Medical Branch Lactobacill Yes 1{tbl} Take 1 Un desirae us Acidoph 1-11 tablet by ity of & Bulgar 1 16:11: mouth. [facility] 19 Medical cell Tab Branch morpHINE Yes 20mg Take 20 mg Uni vers CONC 100 1-11 by mouth ity of mg/5 mL (20 16:11: every 12 [place] mg/mL) 19 (twelve) Medical concentrate hours as Bran ch d solution needed. LORazepam Yes .5mg Take 0.5 Univ ers (ATIVAN) 1-11 mg by ity of 0.5 mg 16:11: mouth. [place] tablet 19 Take two Medical at bed [...] mouth ity of tablet 16:11: every 4 [place] 19 (four) Medical hours as Branch needed for Nausea and Vomiting (N/V). aspirin 81 0 Yes 81mg 81 mg Univer s mg EC 1-11 every 3 ity of tablet 16:11: (three) [place] 19 days. Medical Indication Branch s: Taken via Peg-tube not oral. SERTraline 2023-0 Yes 100mg Take 100 Un desirae 100 mg 1-11 mg by ity of tablet 16:11: mouth. [place] 19 Medical Branch Polyethylen Yes 17g Take 17 g U nivers e Glycol 1-11 by mouth. ity of 3350 17 16:11: [place] gram powder 19 Medical Branch whey Yes 7g Take 7 g Univers protein 1-11 through ity of isolate 21 16:11: feeding [place] gram-100 19 tube. Medical kcal/27 Branch gram Powd sennosides Yes 2{tbl} Take 2 Uni vers 8.6 mg 1-11 tablets by ity of tablet 16:11: mouth. [place] 19 Medical Branch Lactobacill Yes 1{tbl} Take 1 Un desirae us Acidoph 1-11 tablet by ity of & Bulgar 1 16:11: mouth. [facility] 19 Medical cell Tab Branch morpHINE Yes 20mg Take 20 mg Uni vers CONC 100 1-11 by mouth ity of mg/5 mL (20 16:11: every 12 [place] mg/mL) 19 (twelve) Medical concentrate hours as Bran ch d solution needed. LORazepam Yes .5mg Take 0.5 Univ ers (ATIVAN) 1-11 mg by ity of 0.5 mg 16:11: mouth. [place] tablet 19 Take two Medical at bed [...] mouth ity of tablet 16:11: every 4 [place] 19 (four) Medical hours as Branch needed for Nausea and Vomiting (N/V). sodium 2022-0 Yes [id number] 4mL Inhale 4 Un desirae chloride 7% 1-10 mL in the ity of nebulizer 00:00: morning [place] solution 00 and 4 mL Medical in the Branch evening. sodium 2022-0 Yes [id number] 4mL Inhale 4 Un [facility] chloride 7% 1-10 mL in the ity of nebulizer 00:00: morning [place] solution 00 and 4 mL Medical in the Branch evening. sodium 2023-0 Yes [id number] 4mL Inhale 4 [facility] [place] chloride 7% 1-10 mL in the ity of nebulizer 00:00: morning [place] solution 00 and 4 mL Medical in the Branch evening. sodium 2023-0 Yes [id number] 4mL Inhale 4 Un [place] chloride 7% 1-10 mL in the ity of nebulizer 00:00: morning [place] solution 00 and 4 mL Medical in the Branch evening. sodium 2023-0 Yes [id number] 4mL Inhale 4 Un [facility]ae chloride 7% 1-10 mL in the ity of nebulizer 00:00: morning [place] solution 00 and 4 mL Medical in the Branch evening. sodium 2023-0 Yes [id number] 4mL Inhale 4 Un [facility] chloride 7% 1-10 mL in the ity of nebulizer 00:00: morning [place] solution 00 and 4 mL Medical in the Branch evening. sodium 2023-0 Yes [id number] 4mL Inhale 4 Un [facility] chloride 7% 1-10 mL in the ity of nebulizer 00:00: morning [place] solution 00 and 4 mL Medical in the Branch evening. tobramycin 2022- No 5mg/kg 280 mg Un desirae (NEBCIN) 02-16 (rounded ity of 280 mg in 18:00: [...] ion of Therapy: 7 days KCL 20 2022-2022- No 40meq 40 mEq, Univer s mEq/15 mL 02-13 Oral, ity of solution 40 13:30: 13:30 ONCE, 1 [place] mEq 00 :00 dose, On Medical Wed02/13/22 Branch at 0730, Routine magnesium 2022- No 2g 2 g, IV Univ ers [...] ed, Routine, Pain (scale 4-6) KCL 20 2022- No 40meq 40 mEq, Univer s mEq/15 mL 02-11 Oral, ity of solution 40 14:30: 14:40 ONCE, 1 [place] mEq 00 :00 dose, On Medical Wed02/11/22 Branch at 0830, Routine tobramycin 2022- No 5mg/kg 280 mg Un desirae (NEBCIN) 02-10 (rounded ity of 280 mg in 20:30: 21:57 from 275.5 [place] NaCl 0.9% 00 :00 mg = 5 Medical (NS) mg/kg Branch piggyback ?55.1 kg), IV Piggyback, Q24H ABX, 5 doses, First dose on Tu02/10/22 at 1430, Last dose on 02/14/22 at 1430, Administer over 30 Minutes, 50 [...] Medical Wed02/10/22 Branch at 1200, Routine ceFEPIme No 2000mg 2,000 mg, U nivers (MAXIPIME) 02-10 IV ity of 2,000 mg in 06:45: 16:38 Piggyback, [place] NaCl 0.9% 00 :24 Q8H ABX, Medica [...] use approved by: ALMA HINES, CLC ID ceFEPIme 2022- No 2000mg 2,000 mg, U nivers (MAXIPIME) 02-09 IV ity of 2,000 mg in 23:00: 00:13 Piggyback, [place] NaCl 0.9% 00 :00 ONCE, 1 Medical (NS) 50 mL dose, On Bran h MINI-BAG Wed02/09/22 at 1700, Administer over 30 Minutes, 50 mL
R sophie for Anti-Infec tive: Documented Infection< br>Documen jake Infection Site: Respirator y
Du ration of Therapy: 7 days lidocaine 2022- No 2mL 2 mL, Univer s 1% (PF) 02-09 Endotrache ity o f (XYLOCAINE) 19:15: 17:30 al, ONCE, [place] injection 2 00 :00 1 dose, On Me dical mL Wed02/09/22 Branch at 1315, Routine rocuronium 2022- No 50mg 50 mg, IV U nivers (ZEMURON) 02-09 Push, ity of injection 19:00: 17:40 ONCE, 1 [place] 50 mg 00 :00 dose, On Medical Wed02/09/22 Branch at 1300, Routine
honest john [employer] member approving Restricted medication : LYNN ABRAHAM lactated 2022- No 500mL at 999 Unive rs ringers [...] of 1,000 mg in 17:15: 21:02 Piggyback, [place] NaCl 0.9% 00 :00 ONCE, 1 Medical (NS) 50 mL dose, On [facility] h MINI-BAG Wed02/09/22 at 1115, Administer over 30 Minutes, 50 mL
R estricted use approved by: ALMA HINES, CLC ID
Reas on for Anti-Infec tive: Documented Infection< br>Documen jake Infection Site: Respirator y
Durat ion of Therapy: 7 days KCL 20 2022- No 60meq 60 mEq, Univer s mEq/15 mL 02-09 Enteral, ity o f solution 60 14:00: 14:23 ONCE, 1 [place] mEq 00 :00 dose, On Medical Wed02/09/22 Branch at 0800, Routine polyethylen Yes 17g 17 g, Unive rs e glycol 02-08 Enteral, ity of 3350 powder 16:15: [id number], [place] 17 g 00 Starting Medical on Sun Branch 02/08/22 at 1015, Until Discontinu ed, Routine, Constipati on doxycycline 2022- No 100mg 100 mg, U nivers monohydrate 02-08 Enteral, ity of (VIBRAMYCIN 02:00: 16:20 Q12H ABX, [place] (MONO)) 25 00 :51 14 doses, Medi [...] en Enteral, ity of (TYLENOL) 22:03: Q6HPRN, [place] 160 mg/5 mL 09 Starting Medi sydnee oral liquid on Sat Branch 650 mg 02/07/22 at 1603, Until Discontinu ed, Routine, Pain (scale 1-3), Temp > 38.5 C piperacilli 2021-02- No 3.375g 3.375 g, Univers n-tazobacta 02-07 [...] ration of Therapy: 7 days KCL 20 2021-02- No 40meq 40 mEq, [...]
Durat ion of Therapy: 14 days ceFEPIme 2021-02- No 2000mg 2,000 mg, U nivers (MAXIPIME) 02-07 IV ity of 2,000 mg in 20:00: 16:38 Piggyback, [place] NaCl 0.9% 00 :14 Q8H ABX, Medica l (NS) 50 mL 15 doses, Bran ch MINI-BAG First dose on Wed02/05/22 at 1400, Last dose on Wed02/10/22 at 0600, Administer over 4 Hours, 50 mL
Reas on for Anti-Infec tive: Documented Infection& lt;br>Docu mented Infection Site: Respirator y
Durat ion of Therapy: 7 days albuterol 2021-02 Yes 2.5mg 2.5 mg, Univ ers (PROVENTIL) Inhalation it y of 2.5 mg /3 18:00: , Q6H, [place] mL (0.083 00 First dose Medi sydnee %) (after Branch nebulizer last solution modificati 2.5 mg on) on Wed02/05/22 at 1200, Until Discontinu ed, Routine vancomycin 2021-02 No 1000mg 1,000 mg, Univers (VANCOCIN) 02-07 IV ity of 1,000 mg in 14:30: 04:27 [place], [place] NaCl 0.9% 00 :56 Q12H, Medical [...] ity of 1,000 mg in 05:15: 15:02 [place], [place] NaCl 0.9% 00 :12 Q8H ABX, Medica l (NS) 50 mL 15 doses, Bran ch MINI-BAG First dose on Wed02/04/22 at 2315, Last dose on Wed02/09/22 at 1515, Administer over 3 Hours, 50 mL
Rest ricted use approved by: [email or web address]
R sophie for Anti-Infec tive: Empiric Therapy for Suspected Infection< br>Empiric Therapy Site: Blood
D uration of therapy: 5 days acyclovir 2021-02 No 10mg/kg 700 mg Un desirae (ZOVIRAX) 02-05 (rounded ity o f 700 mg in 03:00: 13:23 from 707 [place] as NaCl 0.9% 00 :05 mg = 10 Medical (NS) 100 mL mg/kg Branch IV infusion ?70.7 kg [place] weight), IV Infusion, Q8H ABX, 6 doses, First dose on Wed02/04/22 at 2100, Last dose on Wed02/06/22 at 1300, Administer over 60 Minutes, 100 mL chlorhexidi 2021-02 Yes 15mL 15 mL, Univ ers ne Oral ity of (PERIDEX) 02:00: ([place] 0.12 % 00 Spit Out), Medical mouthwash BID, First Bran ch 15 mL dose on 02/04/22 at 2000, Until Discontinu ed, Routine iopamidol 2021-02 No [id number] 100mL 100 mL, Univers (ISOVUE 02-04 Intravenou ity o f 370-500 mL) 00:00: 22:45 s, ONCE, 1 [place] injection 00 :00 dose, On Medica l 100 mL Wed Branch 02/04/22 at 1800, Routine vancomycin 2021-02 No 1000mg 1,000 mg, Univers (VANCOCIN) 04-07 IV ity of 1,000 mg in 21:30: 00:48 Piggyback, [place] NaCl 0.9% 00 :00 ONCE, 1 Medical (NS) 250 mL dose, On Bran ch VIAL-MATE Wed IV 02/04/22 piggyback at 1530, Administer over 60 Minutes, 250 mL
Reas on for Anti-Infec tive: Empiric Therapy for Suspected Infection< br>Empiric Therapy Site: Blood
D uration of therapy: 72 hours meropenem 2021-02 No 1000mg 1,000 mg, Univers (MERREM) 04-07 IV ity of 1,000 mg in 21:30: 23:02 [place]gyback, [place] NaCl 0.9% 00 :46 ONCE, 1 Medical (NS) 50 mL dose, On Branc h MINI-BAG 02/04/22 at 1530, Administer over 30 Minutes, 50 mL
Rest ricted use approved by: [email or web address]
R sophie for Anti-Infec tive: Empiric Therapy for Suspected Infection< br>Empiric Therapy Site: Blood
D uration of therapy: 5 days rocuronium 2021-02 No 50mg 50 mg, IV U nivers (ZEMURON) 04-07 Push, ity of injection 19:15: 18:29 ONCE, 1 [place] 50 mg 00 :00 dose, On Wed Branch 02/04/22 at 1315, Routine
honest john [employer] member approving Restricted medication : INTYELLOWC LC etomidate 2021-02- No 20mg 20 mg, Unive rs (AMIDATE) 04-07 Slow IV ity of injection 19:15: 18:15 Push, [place] 20 mg 00 :00 ONCE, 1 Medical dose, On Branch Wed02/04/22 at 1315, Routine propofoL IV 2021-02- No 5ug/kg/ 5-50 Un desirae infusion 04-0704 min mcg/kg/min ity of 19:07: 14:47 ?59.9 kg [place] 16 :02 (1.797-17. Medical 97 mL/hr, Branch [...] [place] mEq 00 :00 dose, On Medical Wed Branch 02/04/22 at 1300, Routine fentaNYL PF 2021-02- No [...] :00 1 dose, On Me dical mL [facility] Branch 02/04/22 at 1230, Routine NaCl 0.9% 2021-02 Yes 10mL 10 mL, Univer s (NS) 04-07 Slow IV ity of injection 18:26: Push, PRN, [place] 10 mL 21 Starting Medical on Wed Branch 02/04/22 at 1226, Until Discontinu ed, Routine, line [...] 48 :02 - SEE Medical 50 mcg INSTRUCTIO [place] NS, Starting on Wed02/04/22 at 1146, Until Wed02/11/22 at 0847, Routine, Sedation sodium 2021-02 Yes 4mL 4 mL, Univers chloride 7% 04-07 Inhalation it y of (HYPER-NICHOLAS) 17:00: , TID, [place] nebulizer 00 First dose Medi sydnee solution [address] [facility] 02/04/22 at 1100, Until Discontinu ed, Routine albuterol 2021-02- No 2.5mg 2.5 mg, Uni vers (PROVENTIL) 04-07 Inhalation i ty of 2.5 mg /3 17:00: 16:52 , Q3H, [place] mL (0.083 00 :21 First dose Medi sydnee %) on Wed [place] nebulizer 02/04/22 solution at 1100, 2.5 mg Until Discontinu ed, Routine iopamidol 2021-02- No [id number] 100mL 100 mL, Univers (ISOVUE 04-06 Intravenou ity o f 370-500 mL) 17:30: 16:25 s, ONCE, 1 [place] injection 00 :00 dose, On Medica l 100 mL [facility] 02/03/22 at 1130, Routine aspirin 2021-02 Yes 81mg 81 mg, Univers chewable 04-06 Enteral, ity of tablet 81 15:00: ONCE Q [place] mg 00 3DAYS, Medical First dose Branch on [facility] 02/03/22 at 0900, Until Discontinu ed, Routine LORazepam 2021-02 Yes 1mg 1 mg, Univers (ATIVAN) 04-06 Enteral, ity of tablet 1 mg 03:00: QHS, First [place] 00 dose on Medical [facility] 02/02/22 at 2100, Until Discontinu ed, Routine atorvastati 2021-02 Yes 40mg 40 mg, Univ ers n (LIPITOR) 04-06 Enteral, ity of tablet 40 03:00: QHS, First [place] mg 00 dose on Medical [facility] 02/02/22 at 2100, Until Discontinu ed, Routine valproic 2021-02 Yes 250mg 250 mg, Unive rs acid 04-06 Enteral, ity of (DEPAKENE) 02:00: Q12H, [place] 250 mg/5 mL 00 First dose Me dical oral on [facility] solution 02/02/22 250 mg at 2000, Until Discontinu ed, Routine morpHINE (4 2021-02- No 4mg 4 mg, Slow Univers mg/mL) 04-06 IV Push, ity of injection 4 01:11: 17:47 Q6HPRN, [place] mg 48 :31 Starting Medical on [facility] 02/02/22 at 1911, Until Wed02/04/22 at 1147, Routine, Pain (scale 7-10) enoxaparin 2021-02 Yes 40mg 40 mg, Unive rs (LOVENOX) 04-05 Subcutaneo ity of injection 23:00: us, DAILY, [place] 40 mg 00 First dose Medical on Wed02/02/22 at 1700, Until Discontinu ed, Routine gabapentin 2021-02 Yes 300mg 300 mg, Uni vers (NEURONTIN) 04-05 Oral, TID, it y of 250 mg/5 mL 20:00: First dose [place] solution 00 on Wed Medical 300 mg 02/02/22 Branch at 1400, Until Discontinu ed, Routine SERTraline 2021-02 Yes 100mg 100 mg, Uni vers (ZOLOFT) 04-05 Enteral, ity of tablet 100 15:00: DAILY, [place] mg 00 First dose Medical on Wed02/02/22 at 0900, Until Discontinu ed, Routine polyethylen 2021-02 No 17g 17 g, [facility] ers e glycol 04-05 Enteral, ity of 3350 powder 15:00: 16:00 DAILY, [place] 17 g 00 :29 First dose Medical on Wed02/02/22 at 0900, Until Discontinu ed, Routine lactated 2021-02 No 1000mL at 125 [facility] ers ringers IV 04-05 1227 mL/hr, ity of infusion 14:30: 13:22 1,000 mL, [place] 1,000 mL 00 :06 IV Medical Infusion, Branch CONTINUOUS , Starting on Wed02/02/22 at 0830, Until Wed02/03/22 at 0722, Routine ondansetron 2021-02 Yes 4mg 4 mg, Slow Univers (ZOFRAN 04-05 IV Push, ity of (PF)) 14:16: Q6HPRN, [place] injection 4 02 Starting Medi sydnee mg on Wed02/02/22 at 0816, Until Discontinu ed, Routine, Nausea and Vomiting (N/V) acetaminoph 2021-02 No 650mg 650 mg, U nivers en 04-05 Enteral, ity of (TYLENOL) 14:15: 22:03 Q6HPRN, [place] 160 mg/5 mL 55 :28 Starting Medi sydnee oral liquid on Wed 650 mg 02/02/22 at 0815, Until 02/07/22 at 1603, Routine, Pain (scale 1-3) aspirin 81 Yes 81mg 81 mg Univer s mg EC 7-27 every 3 ity of tablet 16:27: (three) [place] 49 days. Medical Indication Branch s: Taken via Peg-tube not oral. SERTraline Yes 100mg Take 100 Un desirae 100 mg 7-27 mg by ity of tablet 16:27: mouth. [place] 49 Medical Branch Polyethylen Yes 17g Take 17 g U nivers e Glycol 7-27 by mouth. ity of 3350 17 16:27: [place] gram powder 49 Medical Branch whey Yes 7g Take 7 g Univers protein 7-27 through ity of isolate 21 16:27: feeding [place] gram-100 49 tube. Medical kcal/27 Branch gram Powd sennosides Yes 2{tbl} Take 2 Uni vers 8.6 mg 7-27 tablets by ity of tablet 16:27: mouth. [place] [address] Medical Branch Lactobacill Yes 1{tbl} Take 1 Un desirae us Acidoph 7-27 tablet by ity of & [place] 1 16:27: mouth. [facility] 49 Medical cell Tab Branch morpHINE Yes 20mg Take 20 mg Uni vers CONC 100 7-27 by mouth ity of mg/5 mL (20 16:27: every 12 [place] mg/mL) 49 (twelve) Medical concentrate hours as Bran ch d solution needed. LORazepam Yes .5mg Take 0.5 Univ ers (ATIVAN) 7-27 mg by ity of 0.5 mg 16:27: mouth. [place] tablet 49 Take two Medical at bed [...] mouth ity of tablet 16:27: every 4 [place] [address] (four) Medical hours as Branch needed for Nausea and Vomiting (N/V). peg-electro 2020-0 Yes [id number] 4000mL Take 4,000 Univers lyte soln 6-29 mL by ity of 74- 00:00: mouth [place] .74 -5.86 00 SEE-INSTRU Medi sydnee gram CTIONS. Branch solution Take as directed peg-electro 0 Yes [id number] 4000mL Take 4,000 Univers lyte soln 6-29 mL by ity of - 00:00: mouth [place] .74 -5.86 00 SEE-INSTRU Medi sydnee gram CTIONS. Branch solution Take as directed peg-electro 0 Yes [id number] 4000mL Take 4,000 Univers lyte soln 6-29 mL by ity of - 00:00: mouth [place] .74 -5.86 00 SEE-INSTRU Medi sydnee gram CTIONS. Branch solution Take as directed peg-electro 0 Yes [id number] 4000mL Take 4,000 Univers lyte soln 6-29 mL by ity of - 00:00: mouth [place] .74 -5.86 00 SEE-INSTRU Medi sydnee gram CTIONS. Branch solution Take as directed peg-electro 0 Yes [id number] 4000mL Take 4,000 Univers lyte soln 6-29 mL by ity of - 00:00: mouth [place] .74 -5.86 00 SEE-INSTRU Medi sydnee gram CTIONS. Branch solution Take as directed peg-electro 0 Yes [id number] 4000mL Take 4,000 Univers lyte soln 6-29 mL by ity of - 00:00: mouth [place] .74 -5.86 00 SEE-INSTRU Medi sydnee gram CTIONS. Branch solution Take as directed peg-electro 0 Yes [id number] 4000mL Take 4,000 Univers lyte soln 6-29 mL by ity of - 00:00: mouth [place] .74 -5.86 00 SEE-INSTRU Medi sydnee gram CTIONS. Branch solution Take as directed peg-electro 0 Yes [id number] 4000mL Take 4,000 Univers lyte soln 6-29 mL by ity of 236-22.74-6 00:00: mouth [place] .74 -5.86 00 SEE-INSTRU Medi sydnee gram CTIONS. Branch solution Take as directed peg-electro 2020-0 Yes [id number] 4000mL Take 4,000 Univers lyte soln 6-29 mL by ity of 236-22.74-6 00:00: mouth [place] .74 -5.86 00 SEE-INSTRU Medi sydnee gram CTIONS. Branch solution Take as directed peg-electro 2020-0 Yes [id number] 4000mL Take 4,000 Univers lyte soln 6-29 mL by ity of 236-22.74-6 00:00: mouth [place] .74 -5.86 00 SEE-INSTRU Medi sydnee gram CTIONS. Branch solution Take as directed GABAPENTIN 2020-0 Yes [id number] GIVE 1 Univers 300 mg 3-23 CAPSULE ity of capsule 00:00: THREE [place] 00 TIMES Medical DAILY VIA Branch PEG TUBE GABAPENTIN 2020-0 Yes [id number] GIVE 1 Univers 300 mg 3-23 CAPSULE ity of capsule 00:00: THREE [place] 00 TIMES Medical DAILY VIA Branch PEG TUBE GABAPENTIN 2020-0 Yes [id number] GIVE 1 Univers 300 mg 3-23 CAPSULE ity of capsule 00:00: THREE [place] 00 TIMES Medical DAILY VIA Branch PEG TUBE GABAPENTIN 2020-0 Yes [id number] GIVE 1 Univers 300 mg 3-23 CAPSULE ity of capsule 00:00: THREE [place] 00 TIMES Medical DAILY VIA Branch PEG TUBE GABAPENTIN 2020-0 Yes [id number] GIVE 1 Univers 300 mg 3-23 CAPSULE ity of capsule 00:00: THREE [place] 00 TIMES Medical DAILY VIA Branch PEG TUBE GABAPENTIN 1-0 Yes [id number] GIVE 1 Univers 300 mg 3-23 CAPSULE ity of capsule 00:00: THREE [place] 00 TIMES Medical DAILY VIA Branch PEG TUBE GABAPENTIN 2020-0 Yes [id number] GIVE 1 Univers 300 mg 3-23 CAPSULE ity of capsule 00:00: THREE [place] 00 TIMES Medical DAILY VIA Branch PEG TUBE GABAPENTIN 2020-0 Yes [id number] GIVE 1 Univers 300 mg 3-23 CAPSULE ity of capsule 00:00: THREE [place] 00 TIMES Medical DAILY VIA Branch PEG TUBE GABAPENTIN 2021-0 Yes [id number] GIVE 1 Univers 300 mg 3-23 CAPSULE ity of capsule 00:00: THREE [place] 00 TIMES Medical DAILY VIA Branch PEG TUBE GABAPENTIN Yes [id number] GIVE 1 Univers 300 mg 3-23 CAPSULE ity of capsule 00:00: THREE [place] 00 TIMES Medical DAILY VIA Branch PEG TUBE atorvastati 2019-02 Yes [id number] 40mg Take 2 Univers n 20 mg 2-23 tablets by ity of tablet 00:00: mouth at [place] [address] bedtime. Medical Branch atorvastati 2019-02 Yes [id number] 40mg Take 2 Univers n 20 mg 2-23 tablets by ity of tablet 00:00: mouth at [place] [address] bedtime. Medical Branch atorvastati 2019-02 Yes [id number] 40mg Take 2 Univers n 20 mg 2-23 tablets by ity of tablet 00:00: mouth at [place] [address] bedtime. Medical Branch atorvastati 2019-02 Yes [id number] 40mg Take 2 Univers n 20 mg 2-23 tablets by ity of tablet 00:00: mouth at [place] [address] bedtime. Medical Branch atorvastati 2019-02 Yes [id number] 40mg Take 2 Univers n 20 mg 2-23 tablets by ity of tablet 00:00: mouth at [place] [address] bedtime. Medical Branch atorvastati 2019-02 Yes [id number] 40mg Take 2 Univers n 20 mg 2-23 tablets by ity of tablet 00:00: mouth at [place] [address] bedtime. Medical Branch atorvastati 2019-02 Yes [id number] 40mg Take 2 Univers n 20 mg 2-23 tablets by ity of tablet 00:00: mouth at [place] [address] bedtime. Medical Branch atorvastati 2019-02 Yes [id number] 40mg Take 2 Univers n 20 mg 2-23 tablets by ity of tablet 00:00: mouth at [place] [address] bedtime. Medical Branch atorvastati 2019-02 Yes [id number] 40mg Take 2 Univers n 20 mg 2-23 tablets by ity of tablet 00:00: mouth at [place] [address] bedtime. Medical Branch atorvastati 2019-02 Yes [id number] 40mg Take 2 Univers n 20 mg 2-23 tablets by ity of tablet 00:00: mouth at [place] [address] bedtime. Medical Branch albuterol 2019- Yes [id number] 2.5mg Inhale 3 Univers 2.5 mg /3 1-11 mL every 6 ity of mL (0.083 00:00: (six) [place] %) 00 hours as Medical nebulizer needed for Bran ch solution Wheezing or Shortness of Breath. melatonin 2019-02 Yes [id number] 1{tbl} Take 1 Univers 10 mg Tab 1-11 tablet by ity o f 00:00: mouth at [place] 00 bedtime as Medical needed for Branch Insomnia. albuterol 2019-02 Yes [id number] 2.5mg Inhale 3 Univers 2.5 mg /3 1-11 mL every 6 ity of mL (0.083 00:00: (six) [place] %) 00 hours as Medical nebulizer needed for Bran ch solution Wheezing or Shortness of Breath. melatonin 2019-02 Yes [id number] 1{tbl} Take 1 Univers 10 mg Tab 1-11 tablet by ity o f 00:00: mouth at [place] 00 bedtime as Medical needed for Branch Insomnia. albuterol 2019-02 Yes [id number] 2.5mg Inhale 3 Univers 2.5 mg /3 1-11 mL every 6 ity of mL (0.083 00:00: (six) [place] %) 00 hours as Medical nebulizer needed for Bran ch solution Wheezing or Shortness of Breath. melatonin 2019-02 Yes [id number] 1{tbl} Take 1 Univers 10 mg Tab 1-11 tablet by ity o f 00:00: mouth at [place] 00 bedtime as Medical needed for Branch Insomnia. albuterol 2019-02 Yes [id number] 2.5mg Inhale 3 Univers 2.5 mg /3 1-11 mL every 6 ity of mL (0.083 00:00: (six) [place] %) 00 hours as Medical nebulizer needed for Bran ch solution Wheezing or Shortness of Breath. melatonin 2019-02 Yes [id number] 1{tbl} Take 1 Univers 10 mg Tab 1-11 tablet by ity o f 00:00: mouth at [place] 00 bedtime as Medical needed for Branch Insomnia. albuterol 2019-02 Yes [id number] 2.5mg Inhale 3 Univers 2.5 mg /3 1-11 mL every 6 ity of mL (0.083 00:00: (six) [place] %) 00 hours as Medical nebulizer needed for Bran ch solution Wheezing or Shortness of Breath. melatonin 2019-02 Yes [id number] 1{tbl} Take 1 Univers 10 mg Tab 1-11 tablet by ity o f 00:00: mouth at [place] 00 bedtime as Medical needed for Branch Insomnia. albuterol 2019-02 Yes [id number] 2.5mg Inhale 3 Univers 2.5 mg /3 1-11 mL every 6 ity of mL (0.083 00:00: (six) [place] %) 00 hours as Medical nebulizer needed for Bran ch solution Wheezing or Shortness of Breath. melatonin 2019-02 Yes [id number] 1{tbl} Take 1 Univers 10 mg Tab 1-11 tablet by ity o f 00:00: mouth at [place] 00 bedtime as Medical needed for Branch Insomnia. albuterol 2019-02 Yes [id number] 2.5mg Inhale 3 Univers 2.5 mg /3 1-11 mL every 6 ity of mL (0.083 00:00: (six) [place] %) 00 hours as Medical nebulizer needed for Bran ch solution Wheezing or Shortness of Breath. melatonin 2019-02 Yes [id number] 1{tbl} Take 1 Univers 10 mg Tab 1-11 tablet by ity o f 00:00: mouth at [place] 00 bedtime as Medical needed for Branch Insomnia. albuterol 2019-02 Yes [id number] 2.5mg Inhale 3 Univers 2.5 mg /3 1-11 mL every 6 ity of mL (0.083 00:00: (six) [place] %) 00 hours as Medical nebulizer needed for Bran ch solution Wheezing or Shortness of Breath. melatonin 2019-02 Yes [id number] 1{tbl} Take 1 Univers 10 mg Tab 1-11 tablet by ity o f 00:00: mouth at [place] 00 bedtime as Medical needed for Branch Insomnia. albuterol 2019-02 Yes [id number] 2.5mg Inhale 3 Univers 2.5 mg /3 1-11 mL every 6 ity of mL (0.083 00:00: (six) [place] %) 00 hours as Medical nebulizer needed for Bran ch solution Wheezing or Shortness of Breath. melatonin 2019-02 Yes [id number] 1{tbl} Take 1 Univers 10 mg Tab 1-11 tablet by ity o f 00:00: mouth at [place] 00 bedtime as Medical needed for Branch Insomnia. albuterol 2019-02 Yes [id number] 2.5mg Inhale 3 Univers 2.5 mg /3 1-11 mL every 6 ity of mL (0.083 00:00: (six) [place] %) 00 hours as Medical nebulizer needed for Bran ch solution Wheezing or Shortness of Breath. melatonin 2020-1 Yes [id number] 1{tbl} Take 1 Univers 10 mg Tab 1-11 tablet by ity o f 00:00: mouth at [place] 00 bedtime as Medical needed for Branch Insomnia. valproic 2020-1 Yes [id number] 250mg Take 5 mL Univers acid 250 0-24 through ity of mg/5 mL 00:00: enteral [place] solution 00 tube every Medic al 12 Branch (twelve) hours. valproic 2020-1 Yes [id number] 250mg Take 5 mL Univers acid 250 0-24 through ity of mg/5 mL 00:00: enteral [place] solution 00 tube every Medic al 12 Branch (twelve) hours. valproic 2020-1 Yes [id number] 250mg Take 5 mL Univers acid 250 0-24 through ity of mg/5 mL 00:00: enteral [place] solution 00 tube every Medic al 12 Branch (twelve) hours. valproic 2020-1 Yes [id number] 250mg Take 5 mL Univers acid 250 0-24 through ity of mg/5 mL 00:00: enteral [place] solution 00 tube every Medic al 12 Branch (twelve) hours. valproic 2020-1 Yes [id number] 250mg Take 5 mL Univers acid 250 0-24 through ity of mg/5 mL 00:00: enteral [place] solution 00 tube every Medic al 12 Branch (twelve) hours. valproic 2020-1 Yes [id number] 250mg Take 5 mL Univers acid 250 0-24 through ity of mg/5 mL 00:00: enteral [place] solution 00 tube every Medic al 12 Branch (twelve) hours. valproic 2020-1 Yes [id number] 250mg Take 5 mL Univers acid 250 0-24 through ity of mg/5 mL 00:00: enteral [place] solution 00 tube every Medic al 12 Branch (twelve) hours. valproic 2020-1 Yes [id number] 250mg Take 5 mL Univers acid 250 0-24 through ity of mg/5 mL 00:00: enteral [place] solution 00 tube every Medic al 12 Branch (twelve) hours. valproic 2020-1 Yes [id number] 250mg Take 5 mL Univers acid 250 0-24 through ity of mg/5 mL 00:00: enteral [place] solution 00 tube every Medic al 12 Branch (twelve) hours. valproic 2020-1 Yes [id number] 250mg Take 5 mL Univers acid 250 0-24 through ity of mg/5 mL 00:00: enteral [place] solution 00 tube every Medic al 12 Branch (twelve) hours. tiZANidine 2020-0 Yes TK 1 T PO Un desirae 4 mg tablet 6-27 BID ity of 00:00: [place] [facility] tiZANidine 2020-0 Yes TK 1 T PO Un desirae 4 mg tablet 6-27 BID ity of 00:00: [place] [facility] tiZANidine 2020-0 Yes TK 1 T PO Un desirae 4 mg tablet 6-27 BID ity of 00:00: [place] [facility] tiZANidine 2020-0 Yes TK 1 T PO Un desirae 4 mg tablet 6-27 BID ity of 00:00: [place] [facility] tiZANidine 2020-0 Yes TK 1 T PO Un desirae 4 mg tablet 6-27 BID ity of 00:00: [place] [facility] tiZANidine 2020-0 Yes TK 1 T PO Un desirae 4 mg tablet 6-27 BID ity of 00:00: [place] [facility] tiZANidine 2020-0 Yes TK 1 T PO Un desirae 4 mg tablet 6-27 BID ity of 00:00: [place] [facility] tiZANidine 2020-0 Yes TK 1 T PO Un desir[place] 4 mg tablet 6-27 BID ity of 00:00: [place] [facility] tiZANidine 2020-0 Yes TK 1 T PO Un desirae 4 mg tablet 6-27 BID ity of 00:00: [place] [facility] tiZANidine 2020-0 Yes TK 1 T PO Un desirae 4 mg tablet 6-27 BID ity of 00:00: [place] [facility] Miscellaneo 2020-0 Yes [id number] Diagnosis: [facility] 2-18 S06.9X4AHo ity of Supply Misc 00:00: valerie [place] 00 use daily Medical for Branch patient transfer Miscellaneo 2020-0 Yes [id number] Diagnosis: [facility] 2-18 S06.9X4AHo ity of Supply Misc 00:00: valerie [place] 00 use daily Medical for Branch patient transfer Miscellaneo 2020-0 Yes [id number] Diagnosis: [facility] 2-18 S06.9X4AHo ity of Supply Misc 00:00: valerie [place] 00 use daily Medical for Branch patient transfer Miscellaneo 2020-0 Yes [id number] Diagnosis: [facility] 2-18 S06.9X4AHo ity of Supply Misc 00:00: valerie [place] 00 use daily Medical for Branch patient transfer Miscellaneo 2020-0 Yes [id number] Diagnosis: [facility] 2-18 S06.9X4AHo ity of Supply Misc 00:00: valerie [place] 00 use daily Medical for Branch patient transfer Miscellaneo 2020-0 Yes [id number] Diagnosis: [facility] 2-18 S06.9X4AHo ity of Supply Misc 00:00: valerie [place]ift[place] 00 use daily Medical for Branch patient transfer Miscellaneo 2020-0 Yes [id number] Diagnosis: [facility] 2-18 S06.9X4AHo ity of Supply Misc 00:00: valerie [place] 00 use daily Medical for Branch patient transfer Miscellaneo 2020-0 Yes [id number] Diagnosis: [facility] 2-18 S06.9X4AHo ity of Supply Misc 00:00: valerie [place] 00 use daily Medical for Branch patient transfer Miscellaneo 2020-0 Yes [id number] Diagnosis: [facility] 2-18 S06.9X4AHo ity of Supply Misc 00:00: valerie [place]ift[place] 00 use daily Medical for Branch patient transfer Miscellaneo 2020-0 Yes [id number] Diagnosis: [facility] 2-18 S06.9X4AHo ity of Supply Misc 00:00: valerie [place] 00 use daily Medical for Branch patient transfer Miscellaneo 2019-0 Yes [id number] Use as [facility] Medical 10-31 directed ity o f Supply Pads 00:00: [place] 00 Medical Branch docusate 2019-0 Yes [id number] 10mg Take 1 mL [facility] (SILACE) 50 10-31 through ity o f mg/5 mL 00:00: enteral [place] solution 00 tube Medical daily. Branch Miscellaneo 2019-0 Yes [id number] Use as [facility] Medical 9-23 directed ity o f Supply Pads 00:00: [place] 00 Medical Branch docusate 2019-0 Yes [id number] 10mg Take 1 mL [facility] (SILACE) 50 9-23 through ity o f mg/5 mL 00:00: enteral [place] solution 00 tube Medical daily. Branch Miscellaneo 2018-0 Yes [id number] Use as [facility] Medical 9 directed ity o f Supply Pads 00:00: [place] [facility] docusate 2019-0 Yes [id number] 10mg Take 1 mL [facility] (SILACE) 50 9-23 through ity o f mg/5 mL 00:00: enteral [place] solution 00 tube Medical daily. Branch Miscellaneo 0 Yes [id number] Use as [facility] Medical 10-31 directed ity o f Supply Pads 00:00: [place] [facility] docusate 2018-0 Yes [id number] 10mg Take 1 mL [facility] (SILACE) 50 923 through ity o f mg/5 mL 00:00: enteral [place] solution 00 tube Medical daily. Branch Miscellaneo 2019-0 Yes [id number] Use as [facility] Medical 9- directed ity o f Supply Pads 00:00: [place] [facility] Miscellaneo 2019-0 Yes [id number] Use as [facility] Medical 9- directed ity o f Supply Pads 00:00: [place] [facility] Miscellaneo 2019-0 Yes [id number] Use as [facility] Medical -23 directed ity o f Supply Pads 00:00: [place] [facility] Miscellaneo 2019-0 Yes [id number] Use as [facility] Medical 10-31 directed ity o f Supply Pads 00:00: [place] [facility] Miscellaneo 2019-0 Yes [id number] Use as [facility] Medical 923 directed ity o f Supply Pads 00:00: [place] [facility] Miscellaneo 2019-0 Yes [id number] Use as [facility] Medical 923 directed ity o f Supply Pads 00:00: [place] 00 Medical Branch docusate 2019-0 2023- No [id number] 10mg Take 1 mL [facility] (SILACE) 50 9-23 04-19 through ity of mg/5 mL 00:00: 00:00 enteral [place] solution 00 :00 tube Medical daily. Branch Feeding 2019-0 Yes [id number] Use as Univ ers Tubes - 9-17 directed ity of Bags Misc 00:00: [place] [facility] Feeding 2019-0 Yes [id number] Use as Univ ers Tubes - 9-17 directed ity of Bags Misc 00:00: [place] [facility] Feeding 2019-0 Yes [id number] Use as Univ ers Tubes - 9-17 directed ity of Bags Misc 00:00: [place] [facility] Feeding 2019-0 Yes [id number] Use as Univ ers Tubes - 9-17 directed ity of Bags Misc 00:00: [place] [facility] Feeding 2018-0 Yes [id number] Use as Univ ers Tubes - 9-17 directed ity of Bags Misc 00:00: [place] [facility] Feeding 2018-0 Yes [id number] Use as Univ ers Tubes - 9-17 directed ity of Bags Misc 00:00: [place] [facility] Feeding 2018-0 Yes [id number] Use as Univ ers Tubes - 9-17 directed ity of Bags Misc 00:00: [place] [facility] Feeding 2018-0 Yes [id number] Use as Univ ers Tubes - 9-17 directed ity of Bags Misc 00:00: [place] [facility] Feeding 2018-0 Yes [id number] Use as Univ ers Tubes - 9-17 directed ity of Bags Misc 00:00: [place] [facility] Feeding 2018-0 Yes [id number] Use as Univ ers Tubes - 9-17 directed ity of Bags Misc 00:00: [place] 00 Medical Branch HYDROcodone 2018-0 Yes [id number] 1{tbl} Take 1 [facility] -acetaminop 8-08 tablet by ity of hen 10-325 00:00: mouth [place] mg tablet 00 every 6 Medical (six) Branch hours as needed for Pain (scale 4-6). HYDROcodone 2018-0 Yes [id number] 1{tbl} Take 1 [facility] -acetaminop 8-08 tablet by ity of hen 10-325 00:00: mouth [place] mg tablet 00 every 6 Medical (six) Branch hours as needed for Pain (scale 4-6). HYDROcodone 2018-0 Yes [id number] 1{tbl} Take 1 [facility] -acetaminop 8-08 tablet by ity of hen 10-325 00:00: mouth [place] mg tablet 00 every 6 Medical (six) Branch hours as needed for Pain (scale 4-6). HYDROcodone Yes [id number] 1{tbl} Take 1 [facility] -acetaminop 8-08 tablet by ity of hen 10-325 00:00: mouth [place] mg tablet 00 every 6 Medical (six) Branch hours as needed for Pain (scale 4-6). HYDROcodone 3- No [id number] 1{tbl} Take 1 [facility] -acetaminop 8-08 04-19 [...] ity of mL elixir 00:00: every 6 [place] 00 (six) Medical hours as Branch needed for Fever or Pain. Via feeding tube acetaminoph 2017-02 Yes 320mg Take 10 mL [facility] en 160 mg/5 1-19 by mouth ity of mL elixir 00:00: every 6 [place] 00 (six) Medical hours as Branch needed for Fever or Pain. Via feeding tube acetaminoph 2017-02 Yes 320mg Take 10 mL [facility] en 160 mg/5 1-19 by mouth ity of mL elixir 00:00: every 6 [place] 00 (six) Medical hours as Branch needed for Fever or Pain. Via feeding tube Lactobacill Yes 1{tbl} QD Take [address] [facility] 7-29 tablet by [facility] acidoph-L.b 19:59: mouth Medic al ulgar 13 daily. [place] ([facility]) 1 million cell Tab per tablet atorvastati Yes 40mg QD Take [address] [facility] (LIPITOR) 7-29 by mouth [facility] 40 MG 19:59: daily. Medical tablet 13 [place] bacitracin Yes QD Apply [facility] 7-29 topically [facility] unit/gram 19:59: daily. Medica l ointment 13 [place] trypsin-bal Yes Apply [facility] 7-29 topically [facility] oil 19:59: 2 (two) Medical [id number] 13 times Center unit-mg-mg/ daily as gram Oint needed. bisacodyl Yes 10mg Place [address] [facility] (FLEET) 10 7-29 mg [facility] mg/30 mL 19:59: rectally Medic al Enem enema 13 once. [place] enoxaparin Yes 70mg Inject 70 [facility] [...] 10 mg 19:59: daily. Medical tablet 13 [place] melatonin 3 0 Yes 3mg Take [address] mg Tab 7-29 by mouth [facility] tablet 19:59: every Medical 13 night as Center needed. mirtazapine 0 Yes 15mg QD Take [address] [facility] (REMERON) 7-29 by mouth [facility] 15 MG 19:59: nightly. Medical tablet 13 [place] ondansetron 0 Yes 4mg Take [address] (ZOFRAN-ODT 7-29 by mouth [facility] ) 4 MG 19:59: every 8 Medical disintegrat 13 (eight) Cente r ing tablet hours as needed for Nausea. pantoprazol 0 Yes 40mg QD Take [address] [facility] 7-29 by mouth [facility] (PROTONIX) 19:59: daily. Medic al 40 MG 13 [place] tablet polyethylen 0 Yes 17g QD Take [address] e glycol 7-29 by mouth [facility] (GLYCOLAX) 19:59: daily. Medic al 17 gram 13 [place] packet senna 2017-0 Yes 2{tbl} QD Take [address] [facility] (SENOKOT) 7-29 tablets by Luke s 8.6 mg 19:59: mouth Medical tablet 13 nightly. [place] sertraline 0 Yes 100mg QD Take [address] (ZOLOFT) 7-29 mg by [facility] 100 MG 19:59: mouth Medical tablet 13 daily. [place] whey 0 Yes 7g Q.[id number] 7 g by PEG [facility] protein 7-29 [id number] Tube route [facility] isolate 21 19:59: 3D [...] 40 MG 19:59: daily. Medical tablet 13 [place] bacitracin Yes QD Apply [facility] 7-29 topically [facility] unit/gram 19:59: daily. Medica l ointment 13 [place] trypsin-bal Yes Apply [facility] 7-29 topically [facility] oil 19:59: 2 (two) Medical [id number] 13 times Center unit-mg-mg/ daily as gram Oint needed. bisacodyl Yes 10mg Place [address] [facility] (FLEET) 10 7-29 mg [facility] mg/30 mL 19:59: rectally Medic al Enem enema 13 once. [place] acetaminoph Yes 650mg Take 650 [facility] [...] Medical tablet 13 (two) Center times daily. Lactobacill Yes 1{tbl} QD Take [address] [facility] 7-29 tablet by [facility] acidoph-L.b 19:59: mouth Medic al ulgar 13 daily. Center (FLORANEX) 1 million cell Tab per tablet atorvastati Yes 40mg QD Take [address] [facility] (LIPITOR) 7-29 by mouth [facility] 40 MG 19:59: daily. Medical tablet 13 [place] bacitracin Yes QD Apply [facility] 7-29 topically [facility] unit/gram 19:59: daily. Medica l ointment 13 [place] trypsin-bal Yes Apply [facility] 7-29 topically [facility] oil 19:59: 2 (two) Medical 07-27-540 13 times Center unit-mg-mg/ daily as gram Oint needed. bisacodyl Yes 10mg Place [address] [facility] (FLEET) 10 7-29 mg [facility] mg/30 mL 19:59: rectally Medic al Enem enema 13 once. [place] loratadine Yes 10mg QD Take [address] (CLARITIN) 7-29 by mouth [facility] 10 mg 19:59: daily. Medical tablet 13 [place] enoxaparin Yes 70mg Inject 70 [facility] [...] 10 mg 19:59: daily. Medical tablet 13 [place] melatonin 3 Yes 3mg Take [address] mg Tab 7-29 by mouth [facility] tablet 19:59: every Medical 13 night as Center needed. mirtazapine 0 Yes 15mg QD Take [address] [facility] (REMERON) 7-29 by mouth [facility] 15 MG 19:59: nightly. Medical tablet 13 [place] ondansetron 0 Yes 4mg Take [address] (ZOFRAN-ODT 7-29 by mouth [facility] ) 4 MG 19:59: every 8 Medical disintegrat 13 (eight) Cente r ing tablet hours as needed for Nausea. pantoprazol 0 Yes 40mg QD Take [address] [facility] 7-29 by mouth [facility] (PROTONIX) 19:59: daily. Medic al 40 MG 13 [place] tablet polyethylen 0 Yes 17g QD Take [address] e glycol 7-29 by mouth [facility] (GLYCOLAX) 19:59: daily. Medic al 17 gram 13 [place] packet melatonin 3 Yes 3mg Take [address] mg Tab 7-29 by mouth [facility] tablet 19:59: every Medical 13 night as Center needed. senna 2018-0 Yes 2{tbl} QD Take [address] [facility] [address] (SENOKOT) 7-29 tablets by Luke s 8.6 mg 19:59: mouth Medical tablet 13 nightly. [place] sertraline 0 Yes 100mg QD Take [address] (ZOLOFT) 7-29 mg by [facility] 100 MG 19:59: mouth Medical tablet 13 daily. [place] whey 2017-0 Yes 7g Q.81208170 7 g by PEG [facility] protein 7-29 [id number] Tube route [facility] isolate 21 19:59: 3D 3 (three) Me dical gram-100 13 times Center kcal/27 daily. gram Powd acetaminoph 2018-0 Yes 650mg Take [address] en 7-29 mg by [facility] (TYLENOL) 19:59: mouth Medical 325 MG 13 every 4 Center tablet (four) hours as needed for Pain. mirtazapine 2018-0 Yes 15mg QD Take [address] [facility] (REMERON) 7-29 by mouth [facility] 15 MG 19:59: nightly. Medical tablet 13 Center ondansetron 2017-0 Yes 4mg Take 4 mg [facility] [...] 19:59: daily. Medic al 17 gram 13 [place] packet Lactobacill 2017-0 Yes 1{tbl} QD Take [address] [facility] 7-29 tablet by [facility] acidoph-L.b 19:59: mouth Medic al ulgar 13 daily. [place] (FLORANEX) 1 million cell Tab per tablet senna 0 Yes 2{tbl} QD Take [address] [facility] (SENOKOT) 7-29 tablets by Luke s 8.6 mg 19:59: mouth Medical tablet 13 nightly. [place] sertraline 2017-0 Yes 100mg QD Take [address] (ZOLOFT) 7-29 mg by [facility] 100 MG 19:59: mouth Medical tablet 13 daily. [place] whey 2018-0 Yes 7g Q.07364030 7 g by PEG [facility] protein 7-29 [id number] Tube route [facility] isolate 21 19:59: 3D 3 (three) Me dical gram-100 13 times Center kcal/27 daily. gram Powd acetaminoph 2018-0 Yes 650mg Take [address] en 7-29 mg by [facility] (TYLENOL) 19:59: mouth Medical 325 MG 13 every 4 Center tablet (four) hours as needed for Pain. Lactobacill Yes 1{tbl} QD Take [address] us 7-29 tablet by [place] acidoph-L.b 19:59: mouth Medic al ulgar 13 daily. [place] (FLORANEX) 1 million cell Tab per tablet atorvastati Yes 40mg QD Take [address] [facility] (LIPITOR) 7-29 by mouth [facility] 40 MG 19:59: daily. Medical tablet 13 [place] bacitracin Yes QD Apply [facility] 7-29 topically [facility] unit/gram 19:59: daily. Medica l ointment 13 [place] trypsin-bal Yes Apply [facility] 7-29 topically [facility] oil 19:59: 2 (two) Medical [id number] 13 times Center unit-mg-mg/ daily as gram Oint needed. bisacodyl Yes 10mg Place [address] [facility] (FLEET) 10 7-29 mg [facility] mg/30 mL 19:59: rectally Medic al Enem enema 13 once. [place] enoxaparin Yes 70mg Inject [address] (LOVENOX) 7-29 mg [facility] 100 mg/mL 19:59: subcutaneo Me dical Syrg 13 usly every Center 12 (twelve) hours. atorvastati Yes 40mg QD Take [address] [facility] (LIPITOR) 7-29 by mouth [facility] 40 MG 19:59: daily. Medical tablet 13 [place] fluticasone Yes 1{puff} Inhale [address] [facility] [address] (FLOVENT 7-29 puff by [facility] DISKUS) 50 19:59: mouth via Me dical mcg/actuati 13 inhaler Cente r on diskus daily as inhaler needed. HYDROcodone Yes 1{tbl} Take [address] -acetaminop 7-29 tablet by Naomi martinez (NORCO 19:59: mouth Medica l 5-325) 13 every 8 [place] 5-325 mg (eight) per tablet hours as needed for Pain. levETIRAcet Yes 500mg Q.5D Take [address] am (KEPPRA) 7-29 mg by [facility] 500 MG 19:59: mouth 2 Medical tablet 13 (two) Center times daily. loratadine 20180 Yes 10mg QD Take [address] (CLARITIN) 7-29 by mouth [facility] 10 mg 19:59: daily. Medical tablet 13 [place] melatonin 3 2017-0 Yes 3mg Take [address] mg Tab 7-29 by mouth [facility] tablet 19:59: every Medical 13 night as Center needed. mirtazapine 2018 Yes 15mg QD Take [address] [facility] (REMERON) 7-29 by mouth [facility] 15 MG 19:59: nightly. Medical tablet 13 [place] ondansetron 0 Yes 4mg Take [address] (ZOFRAN-ODT 7-29 by mouth [facility] ) 4 MG 19:59: every 8 Medical disintegrat 13 (eight) Cente r ing tablet hours as needed for Nausea. pantoprazol 0 Yes 40mg QD Take [address] [facility] 7-29 by mouth [facility] (PROTONIX) 19:59: daily. Medic al 40 MG 13 [place] tablet polyethylen 0 Yes 17g QD Take [address] e glycol 7-29 by mouth [facility] (GLYCOLAX) 19:59: daily. Medic al 17 gram 13 [place] packet senna Yes 2{tbl} QD Take [address] [facility] [address] (SENOKOT) 7-29 tablets by Luke s 8.6 mg 19:59: mouth Medical tablet 13 nightly. [place] bacitracin 0 Yes QD Apply [facility] 7-29 topically [facility] unit/gram 19:59: daily. Medica l ointment 13 [place] sertraline 0 Yes 100mg QD Take [address] (ZOLOFT) 7-29 mg by [facility] 100 MG 19:59: mouth Medical tablet 13 daily. [place] whey 0 Yes 7g Q.15889619 7 g by PEG [facility] protein 7-29 [id number] Tube route [facility] isolate 21 19:59: 3D [...] mouth Medic al ulgar 13 daily. Center ([facility]) 1 million cell Tab per tablet atorvastati Yes 40mg QD Take [address] [facility] (LIPITOR) 7-29 by mouth [facility] 40 MG 19:59: daily. Medical tablet 13 [place] bacitracin Yes QD Apply [facility] 500 7-29 topically [facility] unit/gram 19:59: daily. Medica l ointment 13 [place] trypsin-bal Yes Apply [facility]-29 topically [facility] oil 19:59: 2 (two) [facility] [place] -753 13 times Center unit-mg-mg/ daily as gram Oint needed. bisacodyl Yes 10mg Place [address] [facility] (FLEET) 10 7-29 mg [facility] mg/30 mL 19:59: rectally Medic al Enem enema 13 once. [place] enoxaparin Yes 70mg Inject [address] (LOVENOX) 7-29 mg [facility] 100 mg/mL 19:59: subcutaneo Me dical Syrg 13 usly every Center 12 (twelve) hours. fluticasone Yes 1{puff} Inhale [address] [facility] [address] (FLOVENT 7-29 puff by [facility] DISKUS) 50 19:59: mouth via Me dical mcg/actuati 13 inhaler Cente r on diskus daily as inhaler needed. trypsin-bal Yes Apply [facility] 09-05 topically [facility] oil 19:59: 2 (two) [facility] [place] 17-618 13 times Center unit-mg-mg/ daily as gram Oint needed. HYDROcodone Yes 1{tbl} Take 1 [facility] [...] 10 mg 19:59: daily. Medical tablet 13 [place] melatonin 3 0 Yes 3mg Take [address] mg Tab 7-29 by mouth [facility] tablet 19:59: every Medical 13 night as Center needed. mirtazapine Yes 15mg QD Take [address] [facility] (REMERON) 7-29 by mouth [facility] 15 MG 19:59: nightly. Medical tablet 13 [place] ondansetron Yes 4mg Take [address] (ZOFRAN-ODT 7-29 by mouth [facility] ) 4 MG 19:59: every 8 Medical disintegrat 13 (eight) Cente r ing tablet hours as needed for Nausea. pantoprazol 0 Yes 40mg QD Take [address] [facility] 7-29 by mouth [facility] (PROTONIX) 19:59: daily. Medic al 40 MG 13 [place] tablet polyethylen 0 Yes 17g QD Take [address] e glycol 7-29 by mouth [facility] (GLYCOLAX) 19:59: daily. Medic al 17 gram 13 [place] packet senna Yes 2{tbl} QD Take [address] [facility] (SENOKOT) 7-29 tablets by Luke [facility] 8.6 mg 19:59: mouth Medical tablet 13 nightly. [place] sertraline Yes 100mg QD Take [address] (ZOLOFT) 7-29 mg by [facility] 100 MG 19:59: mouth Medical tablet 13 daily. [place] bisacodyl Yes 10mg Place [address] [facility] (FLEET) 10 7-29 mg [facility] mg/30 mL 19:59: rectally Medic al Enem enema 13 once. [place] whey 0 Yes 7g Q.14119451 7 g by PEG [facility] protein 7-29 [id number] Tube route [facility] isolate 21 19:59: 3D 3 (three) Me dical gram-100 13 times Center kcal/27 daily. gram Powd enoxaparin 0 Yes 70mg Inject [address] (LOVENOX) 7-29 mg [facility] 100 mg/mL 19:59: subcutaneo Me dical Syrg 13 usly every Center 12 (twelve) hours. fluticasone 2018-0 Yes 1{puff} Inhale [address] [facility] (FLOVENT 7-29 puff by [facility] DISKUS) 50 19:59: mouth via Ms dical mcg/actuati 13 inhaler Cente r on [...] 10 mg 19:59: daily. Medical tablet 13 [place] melatonin 3 Yes 3mg Take [address] mg Tab 7-29 by mouth [facility] tablet 19:59: every Medical 13 night as Center needed. mirtazapine 0 Yes 15mg QD Take [address] [facility] (REMERON) 7-29 by mouth [facility] 15 MG 19:59: nightly. Medical tablet 13 [place] ondansetron 0 Yes 4mg Take [address] (ZOFRAN-ODT 7-29 by mouth Luke [facility] ) 4 MG 19:59: every 8 Medical disintegrat 13 (eight) Cente r ing tablet hours as needed for Nausea. pantoprazol 0 Yes 40mg QD Take [address] [facility] 7-29 by mouth [facility] (PROTONIX) 19:59: daily. Medic al 40 MG 13 [place] tablet polyethylen 0 Yes 17g QD Take [address] e glycol 7-29 by mouth [facility] (GLYCOLAX) 19:59: daily. Medic al 17 gram 13 [place] packet senna 2018-0 Yes 2{tbl} QD Take [address] [facility] [address] (SENOKOT) 7-29 tablets by Luke [facility] 8.6 mg 19:59: mouth Medical tablet 13 nightly. [place] sertraline 0 Yes 100mg QD Take [address] (ZOLOFT) 7-29 mg by [facility] 100 MG 19:59: mouth Medical tablet 13 daily. [place] whey Yes 7g Q.16804397 7 g by PEG [facility] protein 7-29 [id number] Tube route [facility] isolate 21 19:59: 3D [...] 19:59: mouth Medic al ulgar 13 daily. [place] (FLORANEX) 1 million cell Tab per tablet atorvastati Yes 40mg QD Take [address] [facility] (LIPITOR) 7-29 by mouth [facility] 40 MG 19:59: daily. Medical tablet 13 [place] bacitracin Yes QD Apply [facility] 500 7-29 topically [facility] unit/gram 19:59: daily. Medica l ointment 13 [place] trypsin-bal Yes Apply [facility] 7-29 topically [facility] oil 19:59: 2 (two) Medical [id number] 13 times Center unit-mg-mg/ daily as gram Oint needed. bisacodyl Yes 10mg Place [address] [facility] (FLEET) 10 7-29 mg [facility] mg/30 mL 19:59: rectally Medic al Enem enema 13 once. [place] enoxaparin Yes 70mg Inject 70 [facility] [...] I St -acetaminop 7-29 tablet by Naomi es juan (NORCO 19:59: mouth Medica l 5-325) [...] 10 mg 19:59: daily. Medical tablet 13 [place] melatonin 3 2017-0 Yes 3mg Take [address] mg Tab 7-29 by mouth [facility] tablet 19:59: every Medical 13 night as Center needed. mirtazapine 0 Yes 15mg QD Take [address] [facility] (REMERON) 7-29 by mouth [facility] 15 MG 19:59: nightly. Medical tablet 13 [place] ondansetron 0 Yes 4mg Take [address] (ZOFRAN-ODT 7-29 by mouth [facility] ) 4 MG 19:59: every 8 Medical disintegrat 13 (eight) Cente r ing tablet hours as needed for Nausea. pantoprazol 0 Yes 40mg QD Take [address] [facility] 7-29 by mouth [facility] (PROTONIX) 19:59: daily. Medic al 40 MG 13 [place] tablet polyethylen 0 Yes 17g QD Take [address] e glycol 7-29 by mouth [facility] (GLYCOLAX) 19:59: daily. Medic al 17 gram 13 [place] packet senna 0 Yes 2{tbl} QD Take [address] [facility] (SENOKOT) 7-29 tablets by [facility] 8.6 mg 19:59: mouth Medical tablet 13 nightly. [place] sertraline 0 Yes 100mg QD Take [address] (ZOLOFT) 7-29 mg by [facility] 100 MG 19:59: mouth Medical tablet 13 daily. [place] whey 2017-0 Yes 7g Q.39023540 7 g by PEG [facility] protein 7-29 [id number] Tube route [facility] isolate 21 19:59: 3D 3 (three) Me dical gram-100 13 times [place] kcal/27 daily. gram Powd acetaminoph 2018-0 Yes 650mg Take [address] en 7-29 mg by [place] (TYLENOL) 19:59: mouth Medical 325 MG 13 every 4 Center tablet (four) hours as needed for Pain. artificial Yes 1[drp] Place 1 Un [facility] [...] daily as needed for Dry eyes. artificial 2018-0 Yes 1[drp] Place 1 Un [facility] tears,hypro 6-15 Drop in ity o f [place], 00:[place]: [place] 0.[place] % 00 2 (two) Medical ophthalmic times Branch drops daily as needed for Dry eyes. artificial 2018-0 Yes 1[drp] Place 1 [facility] tears,hypro 6-15 Drop in ity o f [place], 00:[place]: [place] 0.[place] % 00 2 (two) Medical ophthalmic times Branch drops daily as needed for Dry eyes. Immunizations Ordered Filled Date Status Comments Source Immunization Name Immunization Name SARS-COV-2 COVID-19 2020-04-09 Completed Unive rs[facility] of PFIZER VACCINE 00:00:00 [facility] SARS-COV-2 COVID-19 2020-04-09 Completed Unive rsity of PFIZER VACCINE 00:00:00 [facility] SARS-COV-2 COVID-19 2020-04-09 Completed Unive rsity of PFIZER VACCINE 00:00:00 [facility] SARS-COV-2 COVID-19 2020-04-09 Completed Unive rsity of PFIZER VACCINE 00:00:00 [facility] SARS-COV-2 COVID-19 2020-04-09 Completed Unive rsity of PFIZER VACCINE 00:00:00 [facility] SARS-COV-2 COVID-19 2020-04-09 Completed Unive rsity of PFIZER VACCINE 00:00:00 [facility] SARS-COV-2 COVID-19 2020-04-09 Completed Unive rsity of PFIZER VACCINE 00:00:00 [facility] SARS-COV-2 COVID-19 2020-04-09 Completed Unive rsity of PFIZER VACCINE 00:00:00 [facility] SARS-COV-2 COVID-19 2020-03-19 Completed Unive rsity of PFIZER VACCINE 00:00:00 [facility] SARS-COV-2 COVID-19 2020-03-19 Completed Unive rsity of PFIZER VACCINE 00:00:00 [facility] SARS-COV-2 COVID-19 2020-03-19 Completed Unive rsity of PFIZER VACCINE 00:00:00 [facility] SARS-COV-2 COVID-19 2020-03-19 Completed Unive rsity of PFIZER VACCINE 00:00:00 [facility] SARS-COV-2 COVID-19 2020-03-19 Completed Unive rsity of PFIZER VACCINE 00:00:00 [facility] SARS-COV-2 COVID-19 2020-03-19 Completed Unive rsity of PFIZER VACCINE 00:00:00 [facility] SARS-COV-2 COVID-19 2020-03-19 Completed Unive rsity of PFIZER VACCINE 00:00:00 [facility] SARS-COV-2 COVID-19 2020-03-19 Completed Unive rsity of PFIZER VACCINE 00:00:00 [facility] Td 2016-11-02 Completed University of 00:00:00 [facility] TD, NOS 2016-11-02 Completed University of 00:00:00 [facility] TD, NOS 2016-11-02 Completed University of 00:00:00 [facility] TD, NOS 2016-11-02 Completed University of 00:00:00 [facility] TD, NOS 2016-11-02 Completed University of 00:00:00 [facility] TD, NOS 2016-11-02 Completed University of 00:00:00 [facility] TD, NOS 2016-11-02 Completed University of 00:00:00 [facility] TD, NOS 2016-11-02 Completed University of 00:00:00 [facility] Twinrix (hep a/hep 2015-05-31 Completed Univer sity of b) 00:00:00 [facility] Twinrix (hep a/hep 2015-05-31 Completed Univer sity of b) 00:00:00 [facility] Twinrix (hep a/hep 2015-05-31 Completed Univer sity of b) 00:00:00 [facility] Twinrix (hep a/hep 2015-05-31 Completed Univer sity of b) 00:00:00 [facility] Twinrix (hep a/hep 2015-05-31 Completed Univer sity of b) 00:00:00 [facility] Twinrix (hep a/hep 2015-05-31 Completed Univer sity of b) 00:00:00 [facility] Twinrix (hep a/hep 2015-05-31 Completed Univer sity of b) 00:00:00 [facility] Twinrix (hep a/hep 2015-05-31 Completed Univer sity of b) 00:00:00 [facility] Twinrix (hep a/hep 2014-08-27 Completed Univer sity of b) 00:00:00 [facility] Twinrix (hep a/hep 2014-08-27 Completed Univer sity of b) 00:00:00 [facility] Twinrix (hep a/hep 2014-08-27 Completed Univer sity of b) 00:00:00 [facility] Twinrix (hep a/hep 2014-08-27 Completed Univer sity of b) 00:00:00 [facility] Twinrix (hep a/hep 2014-08-27 Completed Univer sity of b) 00:00:00 [facility] Twinrix (hep a/hep 2014-08-27 Completed Univer sity of b) 00:00:00 [facility] Twinrix (hep a/hep 2014-08-27 Completed Univer sity of b) 00:00:00 [facility] Twinrix (hep a/hep 2014-08-27 Completed Univer sity of b) 00:00:00 [facility] Pneumococcal 2014-07-23 Completed University o f Polysaccharide, 00:00:00 [place] [facility] PPSV23 (PNEUMOVAX) Branch Twinrix (hep a/hep 2014-07-23 Completed Univer sity of b) 00:00:00 [facility] Pneumococcal 2014-07-23 Completed University o f Polysaccharide, 00:00:00 [place] [facility] PPSV23 (PNEUMOVAX) [facility] Twinrix (hep a/hep 2014-07-23 Completed Univer sity of b) 00:00:00 [facility] Pneumococcal 2014-07-23 Completed University o f Polysaccharide, 00:00:00 [place] [facility] PPSV23 (PNEUMOVAX) Branch Twinrix (hep a/hep 2014-07-23 Completed Univer sity of b) 00:00:00 [facility] Pneumococcal 2014-07-23 Completed University o f Polysaccharide, 00:00:00 [place] [facility] PPSV23 (PNEUMOVAX) Branch Twinrix (hep a/hep 2014-07-23 Completed Univer sity of b) 00:00:00 [facility] Pneumococcal 2014-07-23 Completed University o f Polysaccharide, 00:00:00 [place] [facility] PPSV23 (PNEUMOVAX) Branch Twinrix (hep a/hep 2014-07-23 Completed Univer sity of b) 00:00:00 [facility] Pneumococcal 2014-07-23 Completed University o f Polysaccharide, 00:00:00 [place] [facility] PPSV23 (PNEUMOVAX) Branch Twinrix (hep a/hep 2014-07-23 Completed Univer sity of b) 00:00:00 [facility] Pneumococcal 2014-07-23 Completed University o f Polysaccharide, 00:00:00 [place] [facility] PPSV23 (PNEUMOVAX) Branch Twinrix (hep a/hep 2014-07-23 Completed Univer sity of b) 00:00:00 [facility] Pneumococcal 2014-07-23 Completed University o f Polysaccharide, 00:00:00 [place] [facility] PPSV23 (PNEUMOVAX) Branch Twinrix (hep a/hep 2014-07-23 Completed Univer sity of b) 00:00:00 [facility] TDAP 2014-04-13 Completed University of 00:00:00 [facility] TDAP 2014-04-13 Completed University of 00:00:00 [facility] TDAP 2014-04-13 Completed University of 00:00:00 [facility] TDAP 2014-04-13 Completed University of 00:00:00 [facility] TDAP 2014-04-13 Completed University of 00:00:00 [facility] TDAP 2014-04-13 Completed University of 00:00:00 [facility] TDAP 2014-04-13 Completed University of 00:00:00 [facility] TDAP 2014-04-13 Completed University of 00:00:00 [facility] TD, NOS Unknown Completed [facility] Pneumococcal Unknown Completed University o f Polysaccharide, [place] [facility] PPSV23 (PNEUMOVAX) Branch TDAP Unknown Completed University [facility] Twinrix (hep a/hep Unknown Completed Univer sity of b) [facility] Twinrix (hep a/hep Unknown Completed Univer sity of b) [facility] Twinrix (hep a/hep Unknown Completed Univer sity of b) [facility] SARS-COV-2 COVID-19 Unknown Completed Unive rsity of PFIZER VACCINE [facility] SARS-COV-2 COVID-19 Unknown Completed Unive rsity of PFIZER VACCINE [facility] Branch TD, NOS Unknown Completed [facility] Pneumococcal Unknown Completed [place] o f Polysaccharide, [facility] PPSV23 (PNEUMOVAX) Branch TDAP Unknown Completed [facility] Twinrix (hep a/hep Unknown Completed Univer sity of b) [facility] Twinrix (hep a/hep Unknown Completed Univer sity of b) [facility] Twinrix (hep a/hep Unknown Completed Univer sity of b) [facility] SARS-COV-2 COVID-19 Unknown Completed Unive rsity of PFIZER VACCINE [facility] SARS-COV-2 COVID-19 Unknown Completed Unive rsity of PFIZER VACCINE [facility] Vital Signs Vital Name Observation Time Observation Value Comments Source Systolic blood 2022-05-28 16:00:00 137 mm[Hg] Univer sity of pressure [facility] Diastolic blood 2022-05-28 16:00:00 83 mm[Hg] Unive rsity of [facility] Heart rate 2022-05-28 16:00:00 74 /min [facility] Body temperature 2022-05-28 16:00:[address] [facility] Oxygen saturation in 2022-05-28 16:00:00 95 /min [facility] Arterial blood by [facility] Pulse oximetry [place] Respiratory rate 2022-05-28 13:15:00 16 /min [facility] Body weight 2022-05-26 00:47:00 71.5 kg per bed [facility] BMI 2022-05-26 00:47:00 23.28 kg/m2 [facility] Body height 2022-05-25 09:00:00 175.3 cm [facility] Systolic blood 2022 18:37:00 113 mm[Hg] Univer sity of [facility] Diastolic blood 2022 18:37:00 80 mm[Hg] Unive rsity of pressure [facility] Heart rate 2022 18:37:00 114 /min [facility] Body temperature 2022 18:37:[address] [facility] Respiratory rate 2022 18:37:00 16 /min [facility] Oxygen saturation in 2022 18:37:00 95 /min [facility] Arterial blood by [facility] Pulse oximetry [place] Body weight 2022-02-12 14:15:00 55.1 kg [facility] BMI 2022-02-12 14:15:00 17.93 kg/m2 [facility] Body height 2022-02-02 13:03:00 175.3 cm [facility] Procedures Procedure Date / Time Performing Clinician Source Performed EXTERNAL PROVIDER RECORDS 2022-06-10 05:01:00 Doctor Chelsie, [facility] AUTHORIZATION FOR RELEASE 2022-06-02 05:01:00 Doctor Unassigned, [facility] Name Medical [place] MAGNESIUM 2022-05-26 11:02:00 Stan Haile [facility] BASIC METABOLIC PANEL 2022-05-26 11:02:00 Stan Haile [facility] (NA, K, CL, CO2, GLUCOSE, Medica l Branch BUN, CREATININE, CA) LACTIC ACID WHOLE BLOOD 2022-05-26 11:02:00 Rosi Morales [facility] CBC WITH DIFF 2022-05-26 11:01:00 Stan Haile [facility] LACTIC ACID WHOLE BLOOD 2022-05-26 01:00:00 Stan Haile [facility] BASIC METABOLIC PANEL 2022-05-26 00:59:00 Stan Haile [facility] (NA, K, CL, CO2, GLUCOSE, Medica l Branch BUN, CREATININE, CA) HB ECG ROUTINE & RHYTHM 2022-05-25 16:08:06 Stan Haile [facility] LACTIC ACID WHOLE BLOOD 2022-05-25 15:57:00 Stan Haile [facility] EXTRA TUBE LT. GREEN 2022-05-25 15:57:[address] [facility] CT THORAX W CONTRAST 2022-05-25 14:37:54 V[facility] ABDOMEN PELVIS W 2022-05-25 14:37:33 Vy Stallings [facility] CONTRAST [facility] BLOOD CULTURE SCREEN 2022-05-25 10:29:00 [facility] BLOOD CULTURE SCREEN 2022-05-25 10:23:00 [facility] LIPASE 2022-05-25 10:23:00 Stan Haile [facility] C-REACTIVE PROTEIN 2022-05-25 10:23:00 Chandrakant [facility] THYROID STIMULATING 2022-05-25 10:23:00 Chandrakant [facility] HORMONE [facility] HEPATIC FUNCTION PANEL 2022-05-25 10:23:00 Chandrakant [facility] ([id number]) (ALB,T.PRO,BILI Medical Branch T,BU/BC,ALT,AST,ALK PHOS) BASIC METABOLIC PANEL 2022-05-25 10:23:00 Chandrakant [facility] (NA, K, CL, CO2, GLUCOSE, Medica l Branch BUN, CREATININE, CA) SEDIMENTATION RATE 2022-05-25 10:23:00 Chandrakant [facility] CBC WITH DIFF 2022-05-25 10:23:00 Chandrakant [facility] LACTIC ACID WHOLE BLOOD 2022-05-25 10:23:00 Chandrakant [facility] PROCALCITONIN 2022-05-25 10:23:00 Chandrakant [facility] GALV ONLY - INFLUENZA A B 2022-05-25 10:12:00 Vy Stallings [facility] RSV PCR [facility] MRSA / MSSA SCREEN BY 2022-05-25 10:12:00 Chandrakant [facility] PCR, NARES [facility] COVID-19 (ID NOW RAPID 2022-05-25 10:12:00 Chandrakant [facility] TESTING) Medical Branch LAB ONLY COVID 2022-05-25 10:12:00 [facility] INTERPRETATION [facility] URINALYSIS 2022-05-25 09:34:00 [facility] TEQUILA AURIS 2022-05-25 09:34:00 [facility] SURVEILLANCE BY THE [facility] Medical [facility] (INFECTION CONTROL PURPOSES) EXTERNAL PROVIDER RECORDS 2022-03-04 06:01:00 Doctor Unassigned, [facility] CBC WITH DIFF 2022 11:32:00 [facility] BASIC METABOLIC PANEL 2022-02-15 11:29:00 [facility] (NA, K, CL, CO2, GLUCOSE, Medica l Branch BUN, CREATININE, CA) CBC WITH DIFF 2022-02-15 11:29:00 [facility] POCT GLUCOSE (AUTOMATED) 2022-02-13 17:55:00 Dave Love [facility] XR CHEST 1 VW 2022-02-13 12:42:00 Yokasta [facility] POCT GLUCOSE (AUTOMATED) 2022-02-13 11:58:00 Dave Love [facility] PHOSPHORUS 2022-02-13 11:23:00 Yokasta [facility] MAGNESIUM 2022-02-13 11:23:00 Yokasta [facility] BASIC METABOLIC PANEL 2022-02-13 11:23:00 Joleen Templetonyamilex [facility] (NA, K, CL, CO2, GLUCOSE, Medica l Branch BUN, CREATININE, CA) CBC WITH DIFF 2022-02-13 11:23:00 Yokasta [facility] AC PANEL 20 + LACTIC ACID 2022-02-13 10:20:00 Yokasta [facility] POCT GLUCOSE (AUTOMATED) 2022-02-13 05:58:00 Dave Love [facility] TOBRAMYCIN PEAK 2022-02-13 00:33:00 [facility] TOBRAMYCIN TROUGH 2022-02-12 20:04:00 [facility] BASIC METABOLIC PANEL 2022-02-12 11:28:00 Tanvir Almodovar [facility] (NA, K, CL, CO2, GLUCOSE, Medica l Branch BUN, CREATININE, CA) CBC WITH DIFF 2022-02-12 11:28:00 Scooby [facility] POCT GLUCOSE (AUTOMATED) 2022-02-12 06:12:00 Abphilly Gutierrez [facility] POCT GLUCOSE (AUTOMATED) 2022-02-11 11:58:00 Renetta Gutierrez [facility] BASIC METABOLIC PANEL 2022-02-11 10:38:00 [facility] (NA, K, CL, CO2, GLUCOSE, Medica l Branch BUN, CREATININE, CA) CBC WITHOUT DIFF 2022-02-11 10:38:00 Wilfredo [facility] VANCOMYCIN TROUGH 2022-02-11 06:01:00 Camila [facility] POCT GLUCOSE (AUTOMATED) 2022-02-11 05:57:00 Renetta Gutierrez [facility] URINALYSIS 2022-02-11 00:43:00 [facility] URINE CULTURE 2022-02-11 00:43:00 [facility] CLOSTRIDIUM DIFFICILE 2022-02-10 18:37:00 [facility] TOX[facility] POCT GLUCOSE (AUTOMATED) 2022-02-10 12:16:00 Abu Matt [facility] BASIC METABOLIC PANEL 2022-02-10 10:24:00 [facility] (NA, K, CL, CO2, GLUCOSE, Medica l Branch BUN, CREATININE, CA) CBC WITHOUT DIFF 2022-02-10 10:24:00 [facility] POCT GLUCOSE (AUTOMATED) 2022-02-10 06:14:00 Renetta Gutierrez [facility] XR CHEST 1 VW 2022-02-09 23:21:33 Raiza Villalobos [facility] BLOOD CULTURE SCREEN 2022-02-09 19:27:00 Camila [facility] PROCALCITONIN 2022-02-09 19:27:00 [facility] BASIC METABOLIC PANEL 2022-02-09 11:11:00 Mogaldino [facility] (NA, K, CL, CO2, GLUCOSE, Medica l Branch BUN, CREATININE, CA) CBC WITH DIFF 2022-02-09 11:11:00 Sulema [facility] AC PANEL 20 + LACTIC ACID 2022-02-09 11:11:00 Gilbert Leone [facility] BASIC METABOLIC PANEL 2022-02-08 10:55:00 Sulema [facility] (NA, K, CL, CO2, GLUCOSE, Medica l Branch BUN, CREATININE, CA) CBC WITH DIFF 2022-02-08 10:55:00 Sulema [facility] POCT GLUCOSE (AUTOMATED) 2022-02-07 17:53:00 Renetta Gutierrez [facility] XR CHEST 1 VW 2022-02-07 17:06:45 Kev Robles [facility] BASIC METABOLIC PANEL 2022-02-07 11:26:00 Caden [facility] (NA, K, CL, CO2, GLUCOSE, Medica l Branch BUN, CREATININE, CA) CBC WITH DIFF 2022-02-07 11:26:00 Rian Negrete [facility] VANCOMYCIN TROUGH 2022-02-07 02:39:00 [facility] POCT GLUCOSE (AUTOMATED) 2022-02-06 23:10:00 Renetta Gutierrez [facility] POCT GLUCOSE (AUTOMATED) 2022-02-06 17:31:00 Renetta Gutierrez [facility] PHOSPHORUS 2022-02-06 11:34:00 Sulema [facility] MAGNESIUM 2022-02-06 11:34:00 Sulema [facility] BASIC METABOLIC PANEL 2022-02-06 11:34:00 Sulema [facility] (NA, K, CL, CO2, GLUCOSE, Medica l Branch BUN, CREATININE, CA) CBC WITH DIFF 2022-02-06 11:34:00 Sulema [facility] MRSA / MSSA SCREEN BY 2022-02-05 15:40:00 Helder Faulkner [facility] SPUTUM CULTURE 2022-02-05 15:09:00 Wilfredo [facility] MAGNESIUM 2022-02-05 10:28:00 Sulema [facility] BASIC METABOLIC PANEL 2022-02-05 10:28:00 Wilfredo [facility] (NA, K, CL, CO2, GLUCOSE, Medica l Branch BUN, CREATININE, CA) CBC WITHOUT DIFF 2022-02-05 10:28:00 Wilfredo [facility] AC ABG + LACTIC ACID 2022-02-05 10:28:00 Keyla Villaloboszabeth [facility] CT ANGIOGRAM CHEST 2022-02-04 23:06:00 u Dave Gutierrez [facility] CT HEAD WO CONTRAST 2022-02-04 23:06:00 [facility] TRAN[facility]CHO (TTE) 2022-02-04 22:08:15 Rian Negrete [facility] XR CHEST 1 VW 2022-02-04 19:12:13 Wilfredo [facility] AC ABG + LACTIC ACID 2022-02-04 19:10:00 [facility] + LACTIC ACID 2022-02-04 17:27:00 Rian Negrete [facility] ABG+COOX+NA+K+GLU+CA2+ 2022-02-04 15:43:00 Dave Love [facility] POCT GLUCOSE (AUTOMATED) 2022-02-04 14:52:00 Abu Dave Gutierrez [facility] TROPONIN I 2022-02-04 14:49:00 Renetta Gutierrez [facility] POCT GLUCOSE (AUTOMATED) 2022-02-04 14:34:00 [facility] HB ECG ROUTINE & RHYTHM 2022-02-04 09:15:55 Sagrario Hernandez [facility] STRIP [facility] POCT GLUCOSE (AUTOMATED) 2022-02-04 02:38:00 Renetta Gutierrez [facility] POCT GLUCOSE (AUTOMATED) 2022-02-03 22:06:00 Abu Matt [facility] TEQUILA AURIS 2022-02-03 21:01:00 Renetta Gutierrez [facility] SURVEILLANCE BY [facility] (INFECTION CONTROL PURPOSES) POCT GLUCOSE (AUTOMATED) 2022-02-03 17:37:00 Renetta Gutierrez [facility] CT ABDOMEN PELVIS W 2022-02-03 16:29:00 Dave Love [facility] CONTRAST [facility] CT THORAX W CONTRAST 2022-02-03 16:29:00 Renetta Gutierrez [facility] POCT GLUCOSE (AUTOMATED) 2022-02-03 14:03:00 Renetta Gutierrez [facility] POCT GLUCOSE (AUTOMATED) 2022-02-03 02:49:00 Renetta Gutierrez [facility] XR CHEST 1 VW 2022-02-03 01:56:43 Renetta [facility] ABG+COOX+NA+K+GLU+CA2+ 2022-02-02 20:29:00 [facility] 2022-02-02 16:56:00 Renetta [facility] BLOOD CULTURE SCREEN 2022-02-02 16:52:00 Renetta [facility] BASIC METABOLIC PANEL 2022-02-02 16:52:00 Dave Love [facility] (NA, K, CL, CO2, GLUCOSE, Medica l Branch BUN, CREATININE, CA) CBC WITH DIFF 2022-02-02 16:52:00 [facility]etta [facility] SPUTUM CULTURE 2022-02-02 16:52:00 [facility] AC PANEL 20 + LACTIC ACID 2022-02-02 16:07:00 Renetta Dave Gutierrez [facility] POCT GLUCOSE (AUTOMATED) 2022-02-02 14:43:00 Renetta [facility] Encounters Start End Encounter Admission Attending Care Care Encounter Source Date/Time Date/Time Type Type Clinicians Facility Department ID 2020-12-09 Outpatient [facility] SAMI [id number] Univers 10:31:29 [facility] 2020-12-09 Emergency [facility] [id number] Univers 07:30:10 [facility] 2020-12-08 Outpatient [facility] [id number] Univers 04:31:19 [facility] 2020-06-26 Outpatient [facility] [id number] [place] 13:50:36 [facility] 2020-06-26 Outpatient [facility] [id number] [place] 07:30:01 [facility] 2022-06-10 2022-06-10 Orders Doctor SANTO [id number] Univers 00:00:00 00:00:00 Only Unassigned, EVELYNE [id number] ity of [facility] [id number] José Miguel as [phone] [address] 2022-06-02 2022-06-02 Orders Doctor SANTO [id number] Univers 00:00:00 00:00:00 Only Unassigned, EVELYNE [id number] ity of [facility] [id number] José Miguel as [phone] [address] 2022-05-29 2022-05-29 Transition OSIRIS Dempsey [id number] Univers 00:00:00 00:00:00 of Care Becca LEMA [id number] i [id number] [id number] [facility] [address] Branch 2022-05-25 2022-05-28 Inpatient U LAURA [facility] KATHIE [id number] Univers 03:27:00 13:00:00 AALIYAH ity of [facility] 2022-05-25 2022-05-28 [facility] Aaliyah Sanchez 1.2.84 0.114 [id number] Univers 03:27:00 13:00:00 Encounter Natalie Chopra [id number] ity of [facility] [id number] José Miguel as [phone] [facility] 094 Branch 2022-03-04 2022-03-04 Orders Doctor HANSA [id number] Univers 00:00:00 00:00:00 Only Unassigned, EVELYNE [id number] ity of [facility] [facility] [id number] José Miguel as [phone] [facility] 009 Branch 2022-02-19 2022-02-19 Transition OSIRIS Dempsey 1.2.840.114 [id number] Univers 00:00:00 00:00:00 of Care Becca Briseno TOREY [id number] [place] [phone] [facility] 403 Branch 2022-02-02 2022 Inpatient U [facility] KATHIE [id number] Univers 07:08:00 16:10:00 CARLOS ity [facility] 2022-02-02 2022 [facility] 1.2.84 0.114 [id number] Univers 07:08:00 16:10:00 Encounter CadenRian katz [facility] [id number] ity of [facility], Carlos CLEAR [id number] [facility] YANES [phone] [place] [address] Branch ([facility]) 2021-10-15 2021-10-15 Patient Doctor HANSA [id number] Univers 00:00:00 00:00:00 Secure Msg Unassigned, EVELYNE [id number] ity of [facility] [id number] José Miguel as [id number] [facility] [address] [place] 2021-10-10 2021-10-10 Emergency X ANNETTE WALDEN [facility] ERT 1 [id number] Univers 03:30:00 11:12:00 IRAMANNETTE Hargrove ity of [facility] 2021-10-10 2021-10-10 Emergency MéndezLuis W TRAUMA 1.2.840.11 [id number] Univers 03:30:00 11:12:00 IramAnnette hargrove [place] [id number] [id number] [id number] [facility] [address] [place] 2021-10-09 2021-10-10 Emergency X NEVA MACHUCA [facility] ERT 1 [id number] Univers 23:12:00 02:45:00 NEVA MACHUCA ity of [facility] 2021-10-09 2021-10-10 Emergency Hajiyev, TRAUMA 1.2.840.114 [id number] Univers 23:12:00 02:45:00 [facility] [id number] [id number] [phone] 2021-10-09 2021-10-09 Emergency X BALDERASRUST ERT [id number] Univers 18:54:00 22:02:00 GERI ity of [facility] 2021-10-09 2021-10-09 Emergency AndreyRUST [id number] Univers 18:54:00 22:02:00 Geri FREDERICK [id number] i ty of [id number] [phone] [facility] [address] [place] 2021-09-30 2021-09-30 Telephone VeronicaRUST 1.2.840.114 [id number] Univers 00:00:00 00:00:00 Kristie FREDERICK [id number] i ty [id number] [id number] Ms dical NAL [address] [place] [address] 2021-09-17 2021-09-17 Telephone [facility] 1.2.840.114 [id number] Univers 00:00:00 00:00:00 Kristie FREDERICK 350.1.13.10 i ty of [facility] [place] [phone] Ms dical NAL [address] [place] [address] 2021-09-17 2021-09-17 Telephone [facility] 1.2.840.114 [id number] Univers 00:00:00 00:00:00 Kristie FREDERICK 350.1.13.10 i ty of [facility] [place].2.[place] [phone] Ms dical NAL [address] [place] [address] 2021-08-19 2021-08-19 Outpatient AMBREEN[place] [address] [place] 02:21:00 02:21:00 SNEHA 0712 da [facility] Outre h Program 2021-08-15 2021-08-15 Telephone [facility] 1.2.840.114 9 [id number] Univers 00:00:00 00:00:00 Kristie FREDERICK 350.1.13.10 i ty of [facility] [place] [phone] Ms dical NAL [address] [place] [address] 2021-08-15 2021-08-15 Telephone [facility] 1.2.840.114 9 [id number] Univers 00:00:00 00:00:00 Kristie FREDERICK 350.1.13.10 i ty of [facility] [place]2.7.2.[place] [phone] Ms dical NAL [address] [place] [address] 2021-06-20 2021-06-20 Telephone [facility] 1.2.840.114 9 [id number] Univers 00:00:00 00:00:00 Kristie FREDERICK 350.1.13.10 i ty of [facility] 4[place]2.7.2.[place] [phone] [address] 2021-06-11 2021-06-11 Telephone [facility] 1.2.840.114 9 [id number] Univers 00:00:00 00:00:00 Kristie FREDERICK 350.1.13.10 i ty of [facility] [place]7.2.[place] [phone] [address] 2021-04-11 2021-04-11 Telephone [facility] 1.2.840.114 9 [id number] Univers 00:00:00 00:00:00 Kristie FREDERICK 350.1.13.10 i ty of [facility] 4[place]2.7.2.[place] [phone] [address] 2021-04-11 2021-04-11 Orders Doctor HANSA 1.2.840.114 [id number] Univers 00:00:00 00:00:00 Only Unassigned, EVELYNE 350.1.13.10 ity of [facility] 4.2.7.2.686 José Miguel as [phone] [address] 2021-04-09 2021-04-09 Telephone [facility] 1.2.840.114 9 [id number] Univers 00:00:00 00:00:00 Kristie FREDERICK 350.1.13.10 i ty of [facility] 4[place]2.7.2.[place] [phone] [address] 2021-04-04 2021-04-04 Telephone [facility] 1.2.840.114 9 [id number] Univers 00:00:00 00:00:00 Kristie FREDERICK 350.1.13.10 i ty of [place] 4[place].7.2.[place] [phone] [address] 2021-04-02 2021-04-02 Orders Doctor HANSA 1.2.840.114 [id number] Univers 00:00:00 00:00:00 Only Unassigned, EVELYNE 350.1.13.10 ity of [place] [facility] 4.2.7.2.686 José Miguel as [phone] [address] 2021-03-12 2021-03-12 Telephone [facility] 1.2.840.114 9 [id number] Univers 00:00:00 00:00:00 Kristie FREDERICK 350.1.13.10 i ty of [place].2.[place] [phone] [address] 2021-03-03 2021-03-03 Patient Doctor HANSA 1.2.840.114 [id number] Univers 00:00:00 00:00:00 Secure Msg Unassigned, EVELYNE 350.1.13.10 ity of [facility] 4.2.7.2.686 José Miguel as [phone] [facility] [address] 2021-02-28 2021-02-28 Orders Doctor HANSA 1.2.840.114 [id number] Univers 00:00:00 00:00:00 Only Unassigned, EVELYNE 350.1.13.10 ity of [place] [facility] 4.2.7.2.686 José Miguel as [phone] [facility] [address] 2021-02-27 2021-02-27 [facility] 1037 [id number] Univers 09:00:00 16:08:28 KRISTIE nettles [facility] 2021-02-27 2021-02-27 Telemedici [facility] 1.2.840.114 [id number] Univers 09:00:00 16:08:28 ne Visit Kristie FREDERICK 350.1.13.10 ity of [place].7.2.[place] [phone] [address] 2021-02-21 2021-02-21 Telephone [facility] 1.2.840.114 9 [id number] Univers 00:00:00 00:00:00 Kristie FREDERICK 350.1.13.10 i ty of [place] 4[place]2.7.2.[place] [phone] [address] 2021-01-30 2021-01-30 Telephone [facility] 1.2.840.114 8 [id number] Univers 00:00:00 00:00:00 Kristie FREDERICK 350.1.13.10 i ty of [place] 4[place]2.7.2.[place] [facility] [phone] Ms dic[address] 2020-12-27 2020-12-27 Orders Doctor HANSA 1.2.840.114 [id number] Univers 00:00:00 00:00:00 Only Unassigned, EVELYNE 350.1.13.10 ity [facility] 4.2.7.2.686 José Miguel as [phone] [address] 2020-12-13 2020-12-13 EXT [facility] OP Magat, EXT MSRDP 1.2.840.114 1 [id number] ME 00:00:00 00:00:00 Rebeca [facility] 350.1.13.58 [facility] 9.2.7.2.686 [phone] 0 2020-12-10 2020-12-10 Outpatient R [facility] [id number] Univers 00:00:00 00:00:00 ity [facility] 2020-12-10 2020-12-10 Orders Doctor HANSA 1.2.840.114 [id number] Univers 00:00:00 00:00:00 Only Unassigned, EVELYNE 350.1.13.10 [facility]y [facility] 4.2.7.2.686 José Miguel as [phone] [address] 2020-11-25 2020-11-25 Outpatient [facility] [id number] Univers 00:00:00 00:00:00 ity [facility] 2020-11-21 2020-11-21 [facility] 1.2.007.346 [id number] Univers 07:45:00 11:11:00 Amos Frederick 350.1.13.10 i ty of [place] 4[place]2.7.2.686 [place] [phone] [facility] [address] 2020-11-21 2020-11-21 Emergency X RUST ERT [id number] Univers 07:45:00 11:11:00 AMOS nettles [facility] 2020-11-12 2020-11-12 Telephone [facility] 1.2.840.114 8 [id number] Univers 00:00:00 00:00:00 Kristie Frederick 350.1.13.10 i ty of [place]2.7.2.[place] [phone] Ms dicga nal [address] [place] [address] 2020-10-11 2020-10-11 Telephone [facility] 1.2.840.114 8 [id number] Univers 00:00:00 00:00:00 Kristie Frederick 350.1.13.10 i ty of [place] 4[place]2.7.2.[place] [phone] [facility] nal [address] [place] [address] 2020-10-04 2020-10-04 Orders Doctor HANSA 1.2.840.114 [id number] Univers 00:00:00 00:00:00 Only Unassigned, EVELYNE 350.1.13.10 ity of [place] [facility] [facility] 4.2.7.2.686 José Miguel as [phone] [address] 2020-10-04 2020-10-04 Orders Doctor HANSA 1.2.840.114 [id number] Univers 00:00:00 00:00:00 Only Unassigned, EVELYNE 350.1.13.10 ity of [place] [facility] [facility] 4.2.7.2.686 José Miguel as [phone] [address] 2020-09-30 2020-09-30 Telephone [facility] 1.2.840.114 8 [id number] Univers 00:00:00 00:00:00 Kristie Frederick 350.1.13.10 i ty of [place] 4[place]2.7.2.[place] [phone] Ms dical nal [address] [place] [address] 2020-09-26 2020-09-26 Telephone [facility] 1.2.840.114 8 [id number] Univers 00:00:00 00:00:00 Kristie Frederick 350.1.13.10 i ty of [place] 4[place]2.7.2.[place] [phone] Ms dical nal [address] [place] [address] 2020-09-26 2020-09-26 Telephone VeronicaRUST 1.2.840.114 8 [id number] Univers 00:00:00 00:00:00 Kristie Frederick 350.1.13.10 i ty of [place] 4[place]2.7.2.[place] [phone] Ms dical nal 044 [facility] 2020-09-26 2020-09-26 Orders Doctor HANSA 1.2.840.114 [id number] Univers 00:00:00 00:00:00 Only Unassigned, EVELYNE 350.1.13.10 ity of [place] [facility] 4.2.7.2.686 José Miguel as [phone] [facility] sydnee [address] 2020-09-26 2020-09-26 Orders Doctor HANSA 1.2.840.114 [id number] Univers 00:00:00 00:00:00 Only Unassigned, EVELYNE 350.1.13.10 ity of [place] [facility] 4.2.7.2.686 José Miguel as [phone] [facility] sydnee [address] 2020-09-04 2020-09-04 Transition [place] 1.2.840.114 [id number] [id number] Univers 00:00:00 00:00:00 of Care Chinmay Lema 350.1.13.10 ity of [place]2.7.2.[place] [phone] [facility] [address] 2020-08-19 2020-09-03 Hospital Geri Balderas [facility] 1.2.840.1 14 [id number] Univers 11:47:00 16:25:00 Encounter Sam Balbuena 350.1.13.10 ity of [place] 4.2.7.2.686 [facility] [phone] [facility] [address] 2020-08-06 2020-08-06 Telephone [facility] 1.2.447.780 [id number] [id number] Univers 00:00:00 00:00:00 Paty Frederick 350.1.13.10 ity of [place].2.[place] [phone] Ms dical nal 204 [facility] 2020-08-06 2020-08-06 [facility] 1.2.840.114 [id number] Univers 00:00:00 00:00:00 Surgery Paty Frederick 350.1.13.10 ity of [place] 4[place]2.7.2.[place] [phone] Ms dical nal 204 [facility] 2020-07-25 2020-07-25 Telephone [facility] 1.2.840.114 8 [id number] Univers 00:00:00 00:00:00 Kristie Frederick 350.1.13.10 i ty of [place] 4[place]2.7.2.[place] [phone] Ms dical nal 044 [facility] 2020-07-04 2020-07-04 Telephone [facility] 1.2.840.114 8 [id number] Univers 00:00:00 00:00:00 Kristie Frederick 350.1.13.10 i ty of [place] 4[place]2.7.2.[place] [phone] Ms dical nal 044 [facility] 2020-07-04 2020-07-04 Orders Doctor HANSA 1.2.840.114 [id number] Univers 00:00:00 00:00:00 Only Unassigned, EVELYNE 350.1.13.10 ity of [place] [facility] 4.2.7.2.686 José Miguel as [phone] [address] 2020-06-25 2020-06-25 EXT [facility] OP Magat, EXT MSR[facility] 1.2.840.114 1 [id number] [place] 00:00:00 00:00:00 Rebeca M LOCATION 350.1.13.58 Health [id number] 0 2020-06-25 2020-06-25 EXT MHH OP Magat, EXT MSRDP 1.2.840.114 1 [id number] [place] 00:00:00 00:00:00 Rebeca M LOCATION 350.1.13.58 Health [phone] 0 2020-06-20 2020-06-20 Telemedici [facility] 1.2.840.114 [id number] [facility] 10:14:46 11:10:57 ne Visit Kristie Frederick 350.1.13.10 ity of [place] 4[place]2.7.2.[place] [phone] [address] 2020-06-20 2020-06-20 Outpatient [facility] 1032 [id number] [facility] 09:20:00 09:20:00 KRISTIE ity of [facility] 2020-06-19 2020-06-19 EXT [facility] OP Magat, EXT MSRDP 1.2.840.114 1 [id number] [place] 00:00:00 00:00:00 Rebeca M LOCATION 350.1.13.58 Health 9.2.7.2.686 [phone] 0 2020-06-19 2020-06-19 Telephone [facility] 1.2.840.114 8 [id number] Univers 00:00:00 00:00:00 Kristie Frederick 350.1.13.10 i ty of [place] 4[place]2.7.2.[place] [phone] [address] 2020-06-19 2020-06-19 Orders Doctor HANSA 1.2.840.[id number] [place] [address] 00:00:00 00:00:00 Only Unassigned, EVELYNE 350.1.13.10 ity of [place] [facility] 4.2.7.2.686 José Miguel as [phone] [address] 2020-06-19 2020-06-19 EXT [facility] 1.2.840.114 1 [id number] [place] 00:00:00 00:00:00 Rebeca M LOCATION 350.1.13.58 Health 9.2.7.2.686 [id number] 0 2020-05-22 2020-05-22 Telephone [facility] 1.2.840.114 8 [id number] Univers 00:00:00 00:00:00 Kristie Frederick 350.1.13.10 i ty of [place] 4[place]2.7.2.[place] [phone] Ms dicvalor health 044 [facility] 2020-05-08 2020-05-08 Telemedici [facility] 1.2.840.114 [id number] Univers 07:58:08 16:59:26 ne Visit Kristie Frederick 350.1.13.10 ity of [place] 4[place]2.7.2.[place] [phone] [address] 2020-05-08 2020-05-08 Outpatient [facility] 1032 [id number] Univers 09:00:00 09:00:00 KRISTIE nettles [facility] 2020-05-08 2020-05-08 Patient [facility] 1.2.840.114 [id number] Univers 00:00:00 00:00:00 Outreach Taylor Frederick 350.1.13.10 ity of [place] 4[place]2.7.2.[place] [phone] [address] 2020-05-06 2020-05-06 Telephone [facility] 1.2.840.114 8 [id number] Univers 00:00:00 00:00:00 Kristie Frederick 350.1.13.10 i ty of [place] 4[place]2.7.2.[place] [phone] [facility] 231 [facility] 2020-05-06 2020-05-06 Telephone [facility] 1.2.840.114 8 [id number] Univers 00:00:00 00:00:00 Kristie Frederick 350.1.13.10 i ty of [place] 4[place]2.7.2.[place] [phone] Ms dicga nal 044 [facility] 2020-04-29 2020-04-29 [facility] 1.2.840.114 [id number] [id number] Univers 11:05:00 14:00:00 Encounter Sophie Frederick 350.1.13.10 ity of [place] 4[place]2.7.2.[place] Surgical [phone] [address] 2020-04-28 2020-04-28 Refill VeronicaRUST 1.2.840.114 [id number] Univers 00:00:00 00:00:00 Kristie Frederick 350.1.13.10 i ty of [place] 4[place]2.7.2.[place] [phone] Ms dical nal [address] [facility] 2020-04-26 2020-04-26 Laboratory Only, Adc Test [facility] 1.2.840. 114 [id number] Univers 14:19:39 14:34:39 Only Sophie Lazcano 350.1.13.10 ity of [place] 4.2.7.2.[place] [phone] [facility] [address] 2020-04-26 2020-04-26 Outpatient R NENO [facility] [id number] 62640 Univers 14:15:00 14:15:00 SOPHIE nettles [facility] 2020-04-26 2020-04-26 Orders Doctor HANSA 1.2.840.114 [id number] Univers 00:00:00 00:00:00 Only Unassigned, EVELYNE 350.1.13.10 ity of [place] [facility] 4.2.7.2.686 José Miguel as [phone] [facility] [address] 2020-04-24 2020-04-24 Telephone VeronicaRUST 1.2.840.114 8 [id number] Univers 00:00:00 00:00:00 Kristie Frederick 350.1.13.10 i ty of [place] 4[place]2.7.2.[place] [phone] Ms dical nal 044 [facility] 2020-04-20 2020-04-20 Patient Harman [facility] 1.2.840.114 [id number] Univers 00:00:00 00:00:00 Outreach Denny GUALLPA 350.1.13.10 i ty of [place] [facility] 4.2.7.2.686 [place] [phone] Ms dical [address] 2020-04-12 2020-04-12 Prep For Katherine [facility] 1.2.840.114 [id number] Univers 00:00:00 00:00:00 Surgery Paty Silva Sumeet 350.1.13.10 ity of [place] 4[place]2.7.2.[place] [phone] Ms dical nal 204 [facility] 2020-04-11 2020-04-11 Office Neno [facility] 1.2.514.551 3843 8465 Univers 14:43:59 16:04:48 Visit Sophie Sumeet 350.1.13.10 i ty of [place] 4.2.7.2.[place] [phone] Ms dical nal 188 [facility] 2020-04-11 2020-04-11 Outpatient R NENO [facility] 98095 39663 Univers 15:00:00 15:00:00 SOPHIE itlul [facility] 2020-04-11 2020-04-11 Orders Doctor HANSA 1.2.840.114 [id number] Univers 00:00:00 00:00:00 Only Unassigned, EVELYNE 350.1.13.10 ity of [place] [facility] 4.2.7.2.686 José Miguel as [phone] [address] 2020-03-19 2020-03-19 EXT [facility] OP Magat, EXT M[facility] 1.2.840.114 1 [id number] [place] 00:00:00 00:00:00 Rebeca LOCATION 350.1.13.58 Health 9.2.7.2.686 [id number] 0 2020-03-19 2020-03-19 EXT [facility] OP Magat, EXT MSR[facility] 1.2.840.114 1 [id number] [place] 00:00:00 00:00:00 Rebeca M LOCATION 350.1.13.58 Health 9.2.7.2.686 [id number] 0 2020-03-05 2020-03-05 Telephone Veronica [facility] 1.2.840.114 8 [id number] Univers 00:00:00 00:00:00 Kristie Frederick 350.1.13.10 i ty of [place] 4[place].7.2.[place] [phone] [address] 2020-02-27 2020-02-27 Outpatient R LAZCANO [facility] [id number] [id number] Univers 14:00:00 14:00:00 SOPHIE lul [facility] 2020-02-27 2020-02-27 [facility] 1.2.840.114 [id number] [id number] Univers 00:00:00 00:00:00 Kristie Frederick 350.1.13.10 i ty of [place] 4[place]2.7.2.[place] [phone] [address] 2020-02-23 2020-02-23 Orders Doctor HANSA 1.2.840.114 [id number] Univers 00:00:00 00:00:00 Only Unassigned, EVELYNE 350.1.13.10 ity of [place] [facility] 4.2.7.2.686 José Miguel as [phone] [address] 2020-02-23 2020-02-23 [facility] 1.2.840.114 8 [id number] Univers 00:00:00 00:00:00 Kristie Frederick 350.1.13.10 i ty of [place] 4[place]2.7.2.[place] [phone] [address] 2020-02-20 2020-02-20 Outpatient R VICTOR [facility] 1030 [id number] Univers 00:00:00 00:00:00 RAIZA nettles [facility] 2020-02-20 2020-02-20 Telephone [facility] 1.2.840.114 8 [id number] Univers 00:00:00 00:00:00 Kristie Frederick 350.1.13.10 i ty of [place].7.2.[place] [phone] [address] 2020-02-13 2020-02-13 Refill Victor ManuelRUST 1.2.840.114 806 [id number] Univers 00:00:00 00:00:00 Raiza Frederick 350.1.13.10 ity of [place] 4[place]2.7.2.[place] [phone] Ms dicvalor health 044 [facility] 2020-01-25 2020-01-25 Refill VeronicaRUST 1.2.840.114 803 [id number] Univers 00:00:00 00:00:00 Kristie Frederick 350.1.13.10 i ty of [place] 4[place]2.7.2.[place] [phone] [address] 2020-01-22 2020-01-22 [facility]phone [facility] 1.2.840.114 8 [id number] Univers 00:00:00 00:00:00 Raiza Frederick 350.1.13.10 ity of [place] 4[place]2.7.2.[place] [phone] [address] 2020-01-09 2020-01-09 Outpatient [facility] 1029 [id number] Univers 00:00:00 00:00:00 KRISTIE itlul [facility] 2020-01-09 2020-01-09 Orders Doctor HANSA 1.2.840.114 [id number] Univers 00:00:00 00:00:00 Only Unassigned, EVELYNE 350.1.13.10 ity of [place] [facility] 4.2.7.2.686 José Miguel as [phone] [address] 2019-12-29 2019-12-29 Telephone [facility] 1.2.840.114 7 [id number] Univers 00:00:00 00:00:00 Kristie Frederick 350.1.13.10 i ty of [place] 4[place]2.7.2.[place] [phone] [address] 2019-12-27 2019-12-27 Telephone [facility] 1.2.840.114 7 [id number] Univers 00:00:00 00:00:00 Kristie Frederick 350.1.13.10 i ty of [place] 4[place]2.7.2.[place] [phone] Ms dicvalor health 231 [facility] 2019-12-26 2019-12-26 Refill [facility] 1.2.840.114 [id number] Univers 00:00:00 00:00:00 Kristie Frederick 350.1.13.10 i ty of [place] 4[place]2.7.2.[place] [phone] Ms dic[address] 2019-12-21 2019-12-21 Orders Doctor HANSA 1.2.840.114 [id number] Univers 00:00:00 00:00:00 Only Unassigned, EVELYNE 350.1.13.10 ity of [place] [facility] 4.2.7.2.686 José Miguel as [phone] [address] 2019-12-20 2019-12-20 Office [facility] 1.2.840.114 [id number] [id number] Univers 10:45:47 11:05:47 Visit Kristie Frederick 350.1.13.10 i ty of [place] 4[place]2.7.2.[place] [phone] [address] 2019-12-20 2019-12-20 Outpatient R [facility] 1029 [id number] Univers 11:00:00 11:00:00 KRISTIE nettles of [facility] 2019-12-19 2019-12-19 Telephone [facility] 1.2.840.114 7 [id number] Univers 00:00:00 00:00:00 Kristie Frederick 350.1.13.10 i ty of [place] 4[place]2.7.2.[place] [phone] [address] 2019-12-12 2019-12-12 Orders Doctor HANSA 1.2.840.114 [id number] Univers 00:00:00 00:00:00 Only Unassigned, EVELYNE 350.1.13.10 ity of [place] [facility] 4.2.7.2.686 José Miguel as [phone] [address] 2019-12-11 2019-12-11 Office [facility] 1.2.238.188 0825 0395 Univers 10:10:19 10:50:08 Visit Gema GUALLPA 350.1.13.10 ity of [place]2.7.2.[place] [phone] Ms dicalejandro [address] [place] 2019-12-11 2019-12-11 Outpatient R ALIX [facility] 50910 08202 Univers 10:00:00 10:00:00 GEMA ity of [facility] 2019-12-04 2019-12-04 [facility] 1.2.840.114 [id number] Univers 00:00:00 00:00:00 Kristie Frederick 350.1.13.10 i ty of [place].7.2.[place] [phone] Ms dical nal 044 [facility] 2019-12-04 2019-12-04 Telephone [facility] 1.2.840.114 7 [id number] Univers 00:00:00 00:00:00 Kristie Frederick 350.1.13.10 i ty of [place].7.2.[place] [phone] Ms dical nal 231 [facility] 2019-12-01 2019-12-01 Outpatient [facility] 65032 47065 Univers 15:30:00 15:30:00 GEMA ity [facility] 2019-11-30 2019-11-30 [facility] 1.2.840.114 [id number] [id number] Univers 00:00:00 00:00:00 Kristie Frederick 350.1.13.10 i ty of [place].7.2.[place] [phone] Ms dical nal 044 [facility] 2019-11-16 2019-11-16 Office [facility] 1.2.176.619 [id number] 1796 Univers 15:06:40 17:17:25 Visit Gema SPECIALTY 350.1.13.10 ity of [place]2.7.2.[place] [phone] Ms dicalejandro [facility] 198 [facility] 2019-11-16 2019-11-16 Outpatient [facility] 99595 09632 Univers 15:15:00 15:15:00 GEMA ity of [facility] 2019-11-16 2019-11-16 Orders Doctor HANSA 1.2.840.114 [id number] Univers 00:00:00 00:00:00 Only Unassigned, EVELYNE 350.1.13.10 ity of [facility] 4.2.7.2.686 José Miguel as [phone] [address] 2019-11-14 2019-11-14 Telephone [facility] 1.2.840.114 [id number] Univers 00:00:00 00:00:00 Kristie Frederick 350.1.13.10 [place] [phone] [address] 2019-11-06 2019-11-06 [facility] [id number] Univers 14:30:00 14:30:00 GEMA ity of [facility] 2019-10-27 2019-10-27 Outpatient [facility] [id number] Univers 00:00:00 00:00:00 ity of [facility] 2019-10-27 2019-10-27 Telephone [facility] 1.2.840.114 [id number] Univers 00:00:00 00:00:00 Kristie Frederick 350.1.13.10 [place] [phone] [address] 2019-10-27 2019-10-27 Orders Doctor HANSA 1.2.840.114 [id number] Univers 00:00:00 00:00:00 Only Unassigned, EVELYNE 350.1.13.10 ity of [place] [facility] [facility] 4.2.7.2.686 José Miguel as [phone] [address] 2019-10-26 2019-10-26 Telephone [facility] 1.2.840.114 [id number] Univers 00:00:00 00:00:00 Kristie Frederick 350.1.13.10 [place] [phone] Ms [address] 2019-10-23 2019-10-23 Office AlixRUST 1.2.099.570 [id number] Univers 10:07:09 11:04:15 Visit Gema PRIMARY 350.1.13.10 [place] [phone] [address] 2019-10-23 2019-10-23 [facility] [id number] Univers 10:00:00 10:00:00 GEMA ity of [facility] 2019-10-18 2019-10-18 Telephone [facility] 1.2.840.114 [id number] Univers 00:00:00 00:00:00 Kristie Frederick 350.1.13.10 [place] [phone] [address] 2019-10-18 2019-10-18 [facility] 1.2.840.114 [id number] Univers 00:00:00 00:00:00 Kristie Frederick 350.1.13.10 [place] [phone] [address] 2019-10-06 2019-10-06 Refill Victor ManuelRUST 1.2.840.114 [id number] Univers 00:00:00 00:00:00 Raiza Frederick 350.1.13.10 [place] [phone] 65 [address] 2019-10-04 2019-10-04 [facility] 1.2.840.114 [id number] Univers 00:00:00 00:00:00 Kristie Frederick 350.1.13.10 [place] [phone] [address] 2019-09-26 2019-09-26 Telephone [facility] 1.2.840.114 7 [id number] Univers 00:00:00 00:00:00 Kristie Frederick 350.1.13.10 i [place] [phone] Ms dical nal 044 [facility] 2019-09-21 2019-09-21 Orders Doctor HANSA 1.2.840.114 [id number] Univers 00:00:00 00:00:00 Only Unassigned, EVELYNE 350.1.13.10 [facility] 4.2.7.2.686 José Miguel as [phone] [address] 2019-09-14 2019-09-14 Telephone [facility] 1.2.840.114 7 [id number] Univers 00:00:00 00:00:00 Kristie Frederick 350.1.13.10 i [place] [phone] Ms dicga nal 044 [facility] 2019-09-08 2019-09-08 [facility] [id number] Univers 10:15:00 10:15:00 GEMA ity of [facility] 2019-09-01 2019-09-01 Telephone [facility] 1.2.840.114 7 [id number] Univers 00:00:00 00:00:00 Kristie Frederick 350.1.13.10 i [place] of [place] [phone] Ms dical nal 044 [facility] 2019-08-30 2019-08-30 Office JoseRUST 1.2.840.114 [id number] Univers 12:42:28 13:14:49 Visit Madonna Frederick 350.1.13.10 it[place] of [place]2.7.2.[place] [phone] Ms dical nal 059 [facility] 2019-08-30 2019-08-30 Outpatient [facility] [id number] Univers 13:00:00 13:00:00 MADONNA nettles o f [facility] 2019-08-30 2019-08-30 Telephone CindyRUST 1.2.356.717 [id number] Univers 00:00:00 00:00:00 Feli Frederick 350.1.13.10 i [place] of [place] [phone] Ms dical nal 085 [facility] 2019-08-29 2019-08-29 Orders Doctor HANSA 1.2.840.114 [id number] Univers 00:00:00 00:00:00 Only Unassigned, EVELYNE 350.1.13.10 ity of [place] [facility] 4.2.7.2.686 José Miguel as [phone] [facility] [address] [place] 2019-08-28 2019-08-28 Office [facility] 1.2.243.656 [id number] Univers 13:44:42 14:24:45 Visit Eboni Nascimento PRIMARY 350.1.13.10 ity of [place].2.[place] [phone] Ms dical [address] 2019-08-28 2019-08-28 [facility] [id number] Univers 14:00:00 14:00:00 EBONI ity [facility] 2019-08-28 2019-08-28 Telephone [facility] 1.2.840.114 [id number] Univers 00:00:00 00:00:00 Eboni J PRIMARY 350.1.13.10 ity of [place] 4[place]2.[place].2.[place] [phone] Ms dical [address] 2019-08-15 2019-08-15 Orders Doctor HANSA 1.2.840.114 [id number] Univers 00:00:00 00:00:00 Only Unassigned, EVELYNE 350.1.13.10 ity of [place] [facility] 4.2.7.2.686 José Miguel as [phone] [address] 2019-08-14 2019-08-14 Outpatient [facility] [id number] Univers 15:30:00 15:30:00 EBONI ity [facility] 2019-07-24 2019-08-14 Telemedici Pavan Craig [facility] 1.2.840.114 [id number] Univers 10:26:24 14:49:58 ne Visit SPECIALTY 350.1.13.10 ity of [place].2.[place] AT [phone] Ms macy Scruggs [facility] 2019-08-14 2019-08-14 Outpatient R AUGUSTUS, [facility] [id number] Univers 13:30:00 13:30:00 EBONI nettles [facility] 2019-08-09 2019-08-09 [facility] [id number] Univers 09:00:00 09:00:00 KRISTIE nettles [facility] 2019-08-09 2019-08-09 Telemedici [facility] 1.2.840.114 [id number] [facility] 08:24:16 08:39:16 ne Visit Kristie Frederick 350.1.13.10 ity of [place] [phone] Ms macy baez [address] [place] [address] 2019-08-08 2019-08-08 Telephone [facility] 1.2.840.114 [id number] Univers 00:00:00 00:00:00 Kristie Frederick 350.1.13.10 i ty of [place] [phone] [address] 2019-08-07 2019-08-07 Telephone [facility] 1.2.840.114 7 [id number] Univers 00:00:00 00:00:00 Kristie Frederick 350.1.13.10 i ty of [place] [phone] [address] 2019-08-01 2019-08-01 Telephone [facility] 1.2.840.114 7 [id number] Univers 00:00:00 00:00:00 Kristie Frederick 350.1.13.10 i ty of [place] [phone] [address] 2019-07-26 2019-07-26 Orders Doctor SANTO 1.2.840.114 [id number] Univers 00:00:00 00:00:00 Only Unassigned, EVELYNE 350.1.13.10 ity of [place] [facility] 4.2.7.2.686 José Miguel as [phone] [address] 2019-07-24 2019-07-24 Outpatient R PAVAN CRAIG [facility] [id number] Univers 09:30:00 09:30:00 ity of [facility] 2019-07-21 2019-07-21 Telephone [facility] 1.2.840.114 7 [id number] Univers 00:00:00 00:00:00 Kristie Frederick 350.1.13.10 i ty of [place] [phone] [address] 2019-07-17 2019-07-17 Telephone [facility] 1.2.840.114 7 [id number] Univers 00:00:00 00:00:00 Kristie Frederick 350.1.13.10 i ty of [place] [phone] [address] 2019-07-14 2019-07-14 Outpatient [facility] [id number] Univers 00:00:00 00:00:00 ity of [facility] 2019-07-14 2019-07-14 Orders Doctor SANTO 1.2.840.114 [id number] Univers 00:00:00 00:00:00 Only Unassigned, EVELYNE 350.1.13.10 ity of [place] [facility] 4.2.7.2.686 José Miguel as [phone] [address] 2019-07-12 2019-07-12 Outpatient R [facility] [id number] Univers 10:00:00 10:00:00 ity of [facility] 2019-07-12 2019-07-12 Refill [facility] 1.2.840.114 [id number] Univers 00:00:00 00:00:00 Kristie Frederick 350.1.13.10 i ty of [place].2.[place] [phone] [address] 2019-07-06 2019-07-06 Telephone [facility] 1.2.840.114 7 [id number] Univers 00:00:00 00:00:00 Kristie Frederick 350.1.13.10 i ty of [place] 4[place]2.[place] [phone] [address] 2019-07-04 2019-07-04 Telephone [facility] 1.2.840.114 7 [id number] Univers 00:00:00 00:00:00 Kristie [facility] 350.1.13.10 it y of [place] 4.2.7.2.686 José Miguel as Professio [phone] [address] One 2019-06-30 2019-06-30 Outpatient [facility] [id number] Univers 00:00:00 00:00:00 ity of [facility] 2019-06-30 2019-06-30 Telephone [facility] 1.2.840.114 [id number] Univers 00:00:00 00:00:00 Kristie Frederick 350.1.13.10 i ty of [place] [phone] [address] 2019-06-30 2019-06-30 Orders Doctor HANSA 1.2.840.114 [id number] Univers 00:00:00 00:00:00 Only Unassigned, EVELYNE 350.1.13.10 ity of [place] [facility] 4.2.7.2.686 José Miguel as [phone] [address] 2019-06-29 2019-06-29 Telephone [facility] 1.2.840.114 7 [id number] Univers 00:00:00 00:00:00 Kristie Frederick 350.1.13.10 i ty of [place] [phone] [address] 2019-06-28 2019-06-28 Telephone [facility] 1.2.840.114 7 [id number] Univers 00:00:00 00:00:00 Kristie Frederick 350.1.13.10 i ty of [place]2.[place] [phone] [facility] nal [address] [place] [address] 2019-06-26 2019-06-26 Telephone [facility] 1.2.840.114 7 [id number] Univers 00:00:00 00:00:00 Kristie Sumeet 350.1.13.10 i ty [place] [phone] [address] 2019-06-22 2019-06-22 [facility] 1.2.840.114 7 [id number] Univers 00:00:00 00:00:00 Kristie [place] 350.1.13.10 i ty [place] [phone] [address] 2019-06-16 2019-06-16 [facility] 1.2.840.114 7 [id number] Univers 00:00:00 00:00:00 rKistie Frederick 350.1.13.10 i ty [place].2.[place] [phone] [address] 2019-06-16 2019-06-16 [facility] VeronicaRUST 1.2.840.114 [id number] Univers 00:00:00 00:00:00 Kristie Frederick 350.1.13.10 i ty [place] 4[place].2.[place] [phone] [address] 2019-06-13 2019-06-13 [facility] Victor ManuelRUST 1.2.840.114 [id number] Univers 00:00:00 00:00:00 Raiza Frederick 350.1.13.10 ity of [place]2.[place] [phone] [facility] nal [address] [place] [address] 2019-06-09 2019-06-09 Brittney LucasRUST 1.2.840.114 [id number] Univers 00:00:00 00:00:00 Outreach [facility] 350.1.13.10 i ty of [place] 4.2.7.2.686 José Miguel as Professio [phone] [address] Office [facility] 2019-06-08 2019-06-08 Patient Lance [facility] 1.2.840.114 [id number] Univers 00:00:00 00:00:00 Outreach [facility] 350.1.13.10 i ty of [place] 4.2.7.2.686 José Miguel as Professio [phone] [address] Office [facility] 2019-06-08 2019-06-08 Patient Lance [facility] 1.2.840.114 [id number] Univers 00:00:00 00:00:00 Outreach [facility] 350.1.13.10 i ty of [place] 4.2.7.2.686 José Miguel as Professio [phone] [address] 2019-06-07 2019-06-07 Patient Lance [facility] 1.2.840.114 [id number] Univers 00:00:00 00:00:00 Outreach Kayla Goran [place] 350.1.13.10 [place] of [place].2.[place] [phone] [facility] 231 [facility] 2019-06-06 2019-06-06 Telemedici [facility] 1.2.840.114 [id number] Univers 14:24:28 16:27:26 ne Visit Kristie Frederick 350.1.13.10 ity of [place] 4[place]2.7.2.[place] [phone] [address] 2019-06-06 2019-06-06 Outpatient R VERONICA [facility] [id number] Univers 13:40:00 13:40:00 KRISTIE dickens [facility] 2019-06-06 2019-06-06 Telephone VeronicaRUST 1.2.840.114 7 [id number] Univers 00:00:00 00:00:00 Kristie Frederick 350.1.13.10 i ty of [place].2.[place] [phone] Ms dical nal [address] [place] [address] 2019-06-01 2019-06-01 Telephone [facility] 1.2.840.114 7 [id number] Univers 00:00:00 00:00:00 Kristie Frederick 350.1.13.10 i ty of [place] 4[place]2.7.2.[place] [phone] Ms dicga nal [address] [place] [address] 2019-06-01 2019-06-01 [facility] 1.2.840.114 7 [id number] Univers 00:00:00 00:00:00 Kristie Frederick 350.1.13.10 i ty of [place] 4[place].7.2.[place] [phone] Ms dicga nal [address] [place] [address] 2019-05-31 2019-05-31 Outpatient [facility] [id number] Univers 00:00:00 00:00:00 ity of [facility] 2019-05-31 2019-05-31 Telephone [facility] 1.2.840.114 7 [id number] Univers 00:00:00 00:00:00 Kristie Frederick 350.1.13.10 i ty of [place] 4[place].2.[place] [phone] Ms dic[address] 2019-05-29 2019-05-29 [facility] 1.2.840.114 7 [id number] Univers 00:00:00 00:00:00 Kristie Frederick 350.1.13.10 i ty [place]2.7.2.[place] [phone] Ms dicga nal [address] [place] [address] 2019-05-29 2019-05-29 Telephone [facility] 1.2.840.114 7 [id number] Univers 00:00:00 00:00:00 Kristie Frederick 350.1.13.10 i ty of [place] 4[place]2.7.2.[place] [phone] Ms dical nal [address] [place] [address] 2019-05-24 2019-05-24 Outpatient PAVAN DEE [facility] [id number] Univers 15:45:00 15:45:00 ity of [facility] 2019-05-24 2019-05-24 Telephone [facility] 1.2.840.114 7 [id number] Univers 00:00:00 00:00:00 Kristie Frederick 350.1.13.10 i ty of [place] 4[place]2.7.2.[place] [phone] Ms dical nal [address] [place] [address] 2019-05-15 2019-05-15 Refill [facility] 1.2.840.114 [id number] Univers 00:00:00 00:00:00 Kristie Frederick 350.1.13.10 i ty of [place] 4[place]2.7.2.[place] [phone] Ms dical nal [address] [place] [address] 2019-05-10 2019-05-10 Telephone [facility] 1.2.840.114 7 [id number] Univers 00:00:00 00:00:00 Kristie Frederick 350.1.13.10 i ty of [place] 4[place]2.7.2.[place] [phone] Ms dicga nal [address] [place] [address] 2019-05-10 2019-05-10 Patient Doctor [facility] 1.2.840.114 [id number] Univers 00:00:00 00:00:00 Secure Msg Unassigned, SPECIALTY 350.1.13.10 ity of [place] CARE 4.2.7.2.[place] AT [phone] Ms dicalejandro DOMINGUEZY 201 [facility] 2019-04-28 2019-04-28 Telephone [facility] 1.2.840.114 7 [id number] Univers 00:00:00 00:00:00 Kristie Frederick 350.1.13.10 i ty of [place] 4[place].7.2.[place] [phone] Ms dical nal 044 [facility] 2019-04-28 2019-04-28 Orders Doctor HANSA 1.2.840.114 [id number] Univers 00:00:00 00:00:00 Only Unassigned, EVELYNE 350.1.13.10 ity of [place] [facility] 4.2.7.2.686 José Miguel as [phone] [facility] [address] [place] 2019-04-26 2019-04-26 Outpatient R PAVAN CRAIG [facility] [id number] [id number] Univers 15:45:00 15:45:00 ity of [facility] 2019-04-26 2019-04-26 Telephone Pavan Craig HANSA 1.2.840.114 7 [id number] Univers 00:00:00 00:00:00 EVELYNE 350.1.13.10 it y of HOSPITAL 4.2.7.2.686 José Miguel as [phone] [facility] [address] [place] 2019-04-13 2019-04-13 [facility] [id number] Univers 15:40:00 15:40:00 KRISTIE ity [facility] 2019-04-13 2019-04-13 Telephone [facility] 1.2.840.114 7 [id number] Univers 00:00:00 00:00:00 Kristie Frederick 350.1.13.10 i ty of [place] 4[place]2.7.2.[place] [phone] Ms dical nal 044 [facility] 2019-04-12 2019-04-12 Outpatient R PAVAN CRAIG [facility] [id number] Univers 15:00:00 15:00:00 ity [facility] 2019-04-11 2019-04-11 Telephone [facility] 1.2.840.114 7 [id number] Univers 00:00:00 00:00:00 Kristie Frederick 350.1.13.10 i ty of [place] 4[place]2.7.2.[place] [phone] Ms dical nal 044 [facility] 2019-04-11 2019-04-11 Orders Doctor SANTO 1.2.840.114 [id number] Univers 00:00:00 00:00:00 Only Unassigned, EVELYNE 350.1.13.10 ity of [place] [facility] 4.2.7.2.686 José Miguel as [phone] [facility] [address] [place] 2019-04-07 2019-04-07 Refill [facility] 1.2.840.114 [id number] Univers 00:00:00 00:00:00 Kristie Frederick 350.1.13.10 i ty of [place] 4[place].7.2.[place] [phone] Ms dical nal 044 [facility] 2019-04-06 2019-04-06 Telephone [facility] 1.2.840.114 7 [id number] Univers 00:00:00 00:00:00 Kristie Frederick 350.1.13.10 i ty of [place] 4.2.7.2.[place] [phone] Ms dical nal 044 [facility] 2019-04-05 2019-04-05 Telephone [facility] 1.2.840.114 7 [id number] Univers 00:00:00 00:00:00 Kristie Frederick 350.1.13.10 i ty of [place] 4[place]2.7.2.[place] [phone] Ms dical nal [address] [place] [address] 2019-04-03 2019-04-03 Orders Doctor HANSA 1.2.840.114 [id number] Univers 00:00:00 00:00:00 Only Unassigned, EVELYNE 350.1.13.10 ity of [place] [facility] 4.2.7.2.686 José Miguel as [phone] [address] 2019-03-30 2019-03-30 Telephone [facility] 1.2.840.114 7 [id number] Univers 00:00:00 00:00:00 Kristie Frederick 350.1.13.10 i ty of [place] 4[place].2.[place] [phone] Ms dical nal 044 [facility] 2019-03-28 2019-03-28 [facility] 1.2.840.114 7 [id number] Univers 00:00:00 00:00:00 Kristie Frederick 350.1.13.10 i ty of [place] 4.2.7.2.[place] [phone] Ms dical nal 044 [facility] 2019-03-27 2019-03-27 [facility]phone [facility] 1.2.840.114 7 [id number] Univers 00:00:00 00:00:00 Kristie Frederick 350.1.13.10 i ty of [place] 4.2.7.2.[place] [phone] Ms dical nal 044 [facility] 2019-03-24 2019-03-24 Emergency [facility] 1.2.752.551 [id number] Univers 12:20:24 16:24:00 [facility] 350.1.13.10 ity of [place] 4.2.7.2.686 [facility] [place] [phone] [facility] [address] [place] 2019-03-24 2019-03-24 Emergency X [facility] ERT [id number] Univers 12:20:24 16:24:00 INJUVENCIO ity [facility] 2019-03-21 2019-03-21 Telephone [facility] ABELL 1.2.840.114 [id number] Univers 00:00:00 00:00:00 Kristie KNOX 350.1.13.10 it y of [facility] 4.2.7.2.686 [facility] [phone] [facility] [address] [place] 2019-03-21 2019-03-21 [facility]phone [facility] 1.2.840.114 7 [id number] Univers 00:00:00 00:00:00 Kristie Frederick 350.1.13.10 i ty of [place] 4.2.7.2.686 [facility] Professio [phone] Ms dical nal 044 [facility] 2019-03-09 2019-03-[address] [facility] Cardio Fac [facility] 1. 2.840.114 [id number] Univers 15:02:24 15:50:41 Only 1, Adc Cardio Fac Room [place] 350.1. 13.10 ity of [place] Marcelino [place] 4.2.7.2.686 [place] Professio [phone] Ms dical nal 059 [facility] 2019-03-08 2019-03-08 [facility]phone [facility] 1.2.840.114 7 [id number] Univers 00:00:00 00:00:00 Kristie Frederick 350.1.13.10 i ty of [place] 4[place].7.2.[place] [phone] Ms dical nal 044 [facility] 2019-03-07 2019-03-07 Telephone [facility] 1.2.840.114 7 [id number] Univers 00:00:00 00:00:00 Kristie Frederick 350.1.13.10 i ty of [place] 4[place]2.7.2.[place] [phone] Ms dic[address] 2019-02-28 2019-02-28 Telephone [facility] 1.2.840.114 7 [id number] Univers 00:00:00 00:00:00 Kristie Frederick 350.1.13.10 i ty of [place] 4[place].7.2.[place] [phone] [facility] nal [address] [place] [address] 2019-02-24 2019-02-24 Orders Doctor HANSA 1.2.840.114 [id number] Univers 00:00:00 00:00:00 Only Unassigned, EVELYNE 350.1.13.10 ity of [place] [facility] 4.2.7.2.686 José Miguel as [phone] [address] 2019-02-24 2019-02-24 Telephone [facility] 1.2.840.114 7 [id number] Univers 00:00:00 00:00:00 Kristie Frederick 350.1.13.10 i ty of [place] 4[place]2.7.2.[place] [phone] Ms dical nal [address] [place] [address] 2019-02-22 2019-02-22 Andi Doan [facility] 1.2.840.114 [id number] Univers 00:00:00 00:00:00 Stacie Frederick 350.1.13.10 i ty of [place] 4[place]2.7.2.[place] [phone] Ms dical nal [address] [place] [address] 2018-10-26 2018-10-26 Transition Osiris Dempsey 1.2.840.114 [id number] Univers 00:00:00 00:00:00 of Care Becca Lema 350.1.13.10 i ty of [place] 4.2.7.2.[place] [phone] [facility] [address] 2018-10-21 2018-10-25 [facility] Amos Andrews [facility] 1.2.840.1 14 [id number] Univers 06:52:14 16:05:00 Encounter Ricky Sher 350.1.13.10 ity of [place] 4.2.7.2.[place] [phone] [place] [address] [place] 2018-10-21 2018-10-21 Telephone Andi Castrejon [facility] 1.2.840.114 [id number] Univers 00:00:00 00:00:00 C Health 350.1.13.10 it y of [place] 4.2.7.2.686 José Miguel as Professio [phone] [address] Office [employer] 2018-10-13 2018-10-15 [facility] Geri Balderas [facility] 1.2.840.1 14 [id number] Univers 09:58:28 18:45:00 Encounter Eliu Wallace 350.1.13.10 ity of [place] 4[place]2.7.2.[place] [phone] [address] 2018-10-07 2018-10-07 Telephone Andi Castrejon [facility] 1.2.840.114 [id number] Univers 00:00:00 00:00:00 C Sumeet 350.1.13.10 i ty of [place] 4[place].7.2.[place] [phone] [address] 2018-09-27 2018-09-27 Refill Andi Castrejon [facility] 1.2.840.114 [id number] Univers 00:00:00 00:00:00 C [place] 350.1.13.10 i ty of [place] 4[place].7.2.[place] [phone] [address] 2018-09-27 2018-09-27 Orders Doctor SANTO 1.2.840.114 [id number] Univers 00:00:00 00:00:00 Only Unassigned, EVELYNE 350.1.13.10 ity of [place] [facility] 4.2.7.2.686 José Miguel as [phone] [address] 2018-09-23 2018-09-23 Telephone Andi Castrejon [facility] 1.2.840.114 [id number] Univers 00:00:00 00:00:00 C [place] 350.1.13.10 i ty of [place].2.[place] [phone] [address] 2018-09-22 2018-09-22 Telephone Andi Castrejon [facility] 1.2.840.114 [id number] Univers 00:00:00 00:00:00 C [place] 350.1.13.10 i ty of [place].2.[place] [phone] [address] 2018-09-22 2018-09-22 Orders Doctor HANSA 1.2.840.114 [id number] Univers 00:00:00 00:00:00 Only Unassigned, EVELYNE 350.1.13.10 ity of [place] [facility] 4.2.7.2.686 José Miguel as [phone] [address] 2018-09-20 2018-09-20 Telephone Andi Castrejon [facility] 1.2.840.114 [id number] Univers 00:00:00 00:00:00 C [place] 350.1.13.10 i [place] [phone] [address] 2018-09-19 2018-09-19 Andi Henriquez [facility] 1.2.840.114 [id number] [facility] 00:00:00 00:00:00 C [place] 350.1.13.10 [place] [phone] [address] 2018-09-15 2018-09-15 Office Andi Castrejon [facility] 1.2.840.114 [id number] [facility] 12:31:10 13:11:10 Visit C [place] 350.1.13.10 i [place] [phone] [address] 2018-09-15 2018-09-15 Orders Doctor HANSA 1.2.840.114 [id number] [employer] 00:00:00 00:00:00 Only Unassigned, EVELYNE 350.1.13.10 ity of [place] [facility] 4.2.7.2.686 José Miguel as [phone] [address] 2018-09-09 2018-09-09 Telephone Andi Castrejon [facility] 1.2.840.114 [id number] [facility] 00:00:00 00:00:00 C [place] 350.1.13.10 i [place] [phone] [address] 2018-09-09 2018-09-09 Telephone Andi Castrejon [facility] 1.2.840.114 [id number] [facility] 00:00:00 00:00:00 C [place] 350.1.13.10 [place] 4[place] [phone] [address] 2018-09-09 2018-09-09 Telephone Andi Castrejon [facility] 1.2.840.114 [id number] [facility] 00:00:00 00:00:00 C [place] 350.1.13.10 i [place] 4[place] [phone] [address] 2018-08-27 2018-08-27 Orders Doctor HANSA 1.2.840.114 [id number] [facility] 00:00:00 00:00:00 Only Unassigned, EVELYNE 350.1.13.10 ity of [place] [facility] 4.2.7.2.686 José Miguel as [id number] [address] 2018-06-23 2018-06-22 Inpatient E [facility] [id number] [facility] 04:46:00 20:30:00 2018-06-05 2018-06-05 Emergency E [facility] [id number] [facility] 13:21:00 13:21:00 2018-05-30 2018-05-30 Outpatient JONATHAN COOK [facility] [id number] [facility] 00:00:00 00:00:00 [facility] 2018-05-30 2018-05-30 Outpatient R JONATHAN LING [facility] [id number] [facility] 00:00:00 00:00:00 [facility] Results Test Description Test Time Test Comments Results Result Comments Source Lactic Acid Whole Blood 2022-05-26 11:16:51 Test Item Value Reference Range Interpretation Comme nts LACTIC ACID (test code = 6181917400) 1.30 mmol/L 0.50-2.20 Lab Interpretation (test code = 83565-0) [facility] [id number] 01:12:02 Test Item Value Reference Range Interpretation Comments LACTIC ACID (test code = 3.53 mmol/L 0.50-2.20 H 0750780641) Lab Interpretation (test code = Abnormal 07081-8) [facility] [id number] 16:11:24 Test Item Value Reference Range Interpretation Comments LACTIC ACID (test code = 2.96 mmol/L 0.50-2.20 H 5138078271) Lab Interpretation (test code = Abnormal 18285-5) [facility] [id number] 10:34:33 Test Item Value Reference Range Interpretation Comments LACTIC ACID (test code = 3.02 mmol/L 0.50-2.20 H QUE S 6141157080) Lab Interpretation (test code = Abnormal 38342-5) [facility] WITH [id number] 11:47:20 Test Item Value Reference Range Interpretation Comments WBC (test code = See_Comment H [Automated 7890-2) message] The sy stem which generated this result transmitted reference range : 4.20 - 10.70 10*3/?L. The reference range was not used to interpret this result as normal/abnormal . RBC (test code = See_Comment L [Automated 819-8) message] The sy stem which generated this [...] RDW-SD (test code = 44.7 fL 38.5-51.6 13546-1) RDW-CV (test code = 13.9 % 12.1-15.4 788-0) PLT (test code = See_Comment H [Automated 777-3) message] The sy stem which generated this result transmitted reference range : 150 - 328 10*3/ ?L. The reference r sera was not used to interpret this result as normal/abnormal . MPV (test code = 9.9 fL 9.8-13.0 73839-7) NRBC/100 WBC (test See_Comment [Automat ed code = 5596573117) message] The system which generated this result transmitted reference range : 0.0 - 10.0 /100 WBCs. The refer ence range was not u sed to interpret th is result as normal/abnormal . NRBC x10^3 (test code See_Comment [Auto mated = 4773952223) message] The s ystem which generated this result transmitted reference range : 10*3/?L. The reference range was not used to interpret this result as normal/abnormal . GRAN MAT (NEUT) % 57.1 % (test code = 770-8) IMM GRAN % (test code 0.30 % = 5301661754) LYMPH % (test code = 28.4 % 736-9) MONO % (test code = 7.2 % 5905-5) EOS % (test code = 6.6 % 713-8) BASO % (test code = 0.4 % 706-2) GRAN MAT x10^3(ANC) 6.55 10*3/uL 1.99-6.95 (test code = 9699579923) IMM GRAN x10^3 (test 0.04 10*3/uL 0.00-0.06 code = 0757462094) LYMPH x10^3 (test code 3.26 10*3/uL 1.09-3.23 H = 731-0) MONO x10^3 (test code 0.83 10*3/uL 0.36-1.02 = 742-7) EOS x10^3 (test code = 0.76 10*3/uL 0.06-0.53 H 711-2) BASO x10^3 (test code 0.05 10*3/uL 0.01-0.09 = 704-7) Lab Interpretation Abnormal (test code = 22974-9) [facility] METABOLIC PANEL (NA, K, CL, CO2, GLUCOSE, BUN, CREATININE, CA)2022-02-15 11:47:33 Test Item Value Reference Range Interpretation Comments NA (test code = 139 mmol/L 135-145 6865636811) K (test code = 4.4 mmol/L 3.5-5.0 4754243460) CL (test code = 110 mmol/L 98-108 H 8543301676) CO2 TOTAL (test code = 27 mmol/L 23-31 9314834826) AGAP (test code = 2-16 2400938368) BUN (test code = 17 mg/dL 7-23 3070039841) GLUCOSE (test code = 102 mg/dL 70-110 2392373356) CREATININE (test code = 0.49 mg/dL 0.60-1.25 L 2677100765) CALCIUM (test code = 8.1 mg/dL 8.6-10.6 L 2838013858) eGFR (test code = mL/min/1.73m2 4538429599) RANJIT (test code = RANJIT) Association of [...] tests). Lab Interpretation Abnormal (test code = 07188-6) [facility] WITH [id number] 11:37:53 Test Item Value Reference Range Interpretation Comments WBC (test code = See_Comment H [Automated 0290-2) message] The sy stem which generated this [...] RDW-SD (test code = 40.2 fL 38.5-51.6 90874-8) RDW-CV (test code = 13.0 % 12.1-15.4 788-0) PLT (test code = See_Comment [Automated 777-3) message] The sy stem which generated this result transmitted reference range : 150 - 328 10*3/ ?L. The reference r sera was not used to interpret this result as normal/abnormal . MPV (test code = 10.1 fL 9.8-13.0 89268-7) NRBC/100 WBC (test See_Comment [Automat ed code = 7087234170) message] The system which generated this result transmitted reference range : 0.0 - 10.0 /100 WBCs. The refer ence range was not u sed to interpret th is result as normal/abnormal . NRBC x10^3 (test code See_Comment [Auto mated = 5463252022) message] The s ystem which generated this result transmitted reference range : 10*3/?L. The reference range was not used to interpret this result as normal/abnormal . GRAN MAT (NEUT) % 70.2 % (test code = 770-8) IMM GRAN % (test code 0.50 % = 5285681284) LYMPH % (test code = 18.5 % 736-9) MONO % (test code = 6.7 % 5905-5) EOS % (test code = 3.9 % 713-8) BASO % (test code = 0.2 % 706-2) GRAN MAT x10^3(ANC) 8.18 10*3/uL 1.99-6.95 H (test code = 3427168484) IMM GRAN x10^3 (test 0.06 10*3/uL 0.00-0.06 code = 0507234859) LYMPH x10^3 (test code 2.16 10*3/uL 1.09-3.23 = 731-0) MONO x10^3 (test code 0.78 10*3/uL 0.36-1.02 = 742-7) EOS x10^3 (test code = 0.46 10*3/uL 0.06-0.53 711-2) BASO x10^3 (test code 0.01-0.09 = 704-7) Lab Interpretation Abnormal (test code = 46073-3) [facility] [id number] 20:01:39 Test Item Value Reference Range Interpretation Comments Blood Culture-Aerobic No organisms No growth Previo us (test code = 23371-6) isolated prelim inary verified result was Culture In Progress on 02/09/2022 at 170 1 CSTPrevious preliminary verified result was No growth a t 24 hours on 02/10/2022 at 140 1 CSTPrevious preliminary verified result was No growth a t 48 hours on 02/11/2022 at 140 1 CSTPrevious preliminary verified result was No growth a t 72 hours on 02/12/2022 at 140 1 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 Blood No organisms No growth Previous Culture-Anaerobic isolated preliminar y (test code = 35309-7) verifi ed result was Culture In Progress on 02/09/2022 at 170 1 CSTPrevious preliminary verified result was No growth a t 24 hours on 02/10/2022 at 140 1 CSTPrevious preliminary verified result was No growth a t 48 hours on 02/11/2022 at 140 1 CSTPrevious preliminary verified result was No growth a t 72 hours on 02/12/2022 at 140 1 [employer]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 Lab Interpretation Normal (test code = 16136-4) [facility] GLUCOSE (AUTOMATED)2022-02-13 18:21:12 Test Item Value Reference Range Interpretation Comments POCT GLU (test code = 8880114051) 112 mg/dL 70-110 H Lab Interpretation (test code = Abnormal 55510-3) [facility] GLUCOSE (AUTOMATED)2022-02-13 12:00:22 Test Item Value Reference Range Interpretation Comments POCT GLU (test code = 103 mg/dL 70-110 Notifi ed Provider [id number]) Lab Interpretation (test Normal code = 43173-9) [facility] 20 + Lactic [id number] 10:22:41 Test Item Value Reference Range Interpretation Comments PH (test code = 2) 7.35-7.45 H PCO2 (test code = See_Comment L [Automate d 3958004640) message] The sy stem which generated this result transmitted reference range : 35 - 45 mmHg. The reference range was not used to interpret this result as normal/abnormal . PO2 (test code = See_Comment L [Automated 7234787404) message] The sy stem which generated this result transmitted reference range : 80 - 100 mmHg. The reference range was not used to interpret this result as normal/abnormal . HCO3 (test code = See_Comment [Automate d 2962743807) message] The sy stem which generated this result transmitted reference range : 22 - 26 mEq/L. The reference range was not used to interpret this result as normal/abnormal . BE (test code = See_Comment [Automated 5226682924) message] The sy stem which generated this result transmitted reference range : -3.0 - 3.0 mEq/ L. The reference r sera was not used to interpret this result as normal/abnormal . THB (test code = 12.5 g/dL 13.5-18.0 L 1215573757) %O2HB (test code = 93.0 % 94.0-99.0 L 4404788388) %COHB ART (test code = 0.1 % 0.0-1.5 5065215032) %METHB ART (test code = 0.1 % 0.4-1.5 L 5864204868) VOL%O2 ART (test code = 16.4 % 15.0-23.0 8018043541) NA (test code = 137 mmol/L 135-145 5517808584) K+ (test code = 3.5 mmol/L 3.5-5.0 1130156633) AC CA IONZ (test code = 4.70 mg/dL 4.50-5.30 5325752491) GLUCOSE (test code = 95 mg/dL 70-110 0009922650) LACTIC ACID (test code 0.80 mmol/L 0.50-2.20 = 9294379489) Lab Interpretation Abnormal (test code = 38399-9) [facility] Trough Level - Please draw tobramycin trough on 02/12/22 @ 1400 (30-minutes prior to next tobramycin dose) 2022-02-13 08:55:41 Test Item Value Reference Range Interpretation Comments TOBRA T (test code = See_Comment [Autom ated 5860161886) message] The system which generated this result transmit jake reference range : <=2.0. The reference range was not used to interpret this result as normal/abnormal . RANJIT (test code = RANJIT) Toxic Range: ? Greater than 2.0 ug/mL Lab Interpretation Normal (test code = 97022-0) [facility] Peak Level - Please draw tobramycin peak on 02/12/22 at 1530 (30-minutes AFTER completion of TOBRAMYCIN infusion) 2022-02-13 08:20:50 Test Item Value Reference Range Interpretation Comments TOBRA P (test code = 7.5 ug/mL 5.0-8.0 1465718755) RANJIT (test code = RANJIT) Toxic Range: ? Greater than 10.0 ug/mL Lab Interpretation (test Normal code = 27194-8) [facility] GLUCOSE (AUTOMATED)2022-02-13 06:00:00 Test Item Value Reference Range Interpretation Comments POCT GLU (test code = 95 mg/dL 70-110 Notifi ed Provider [id number]) Lab Interpretation (test Normal code = 89667-8) [facility] GLUCOSE (AUTOMATED)2022-02-12 06:14:23 Test Item Value Reference Range Interpretation Comments POCT GLU (test code = 105 mg/dL 70-110 Notifi ed Provider [id number]) Lab Interpretation (test Normal code = 47710-6) [facility] GLUCOSE (AUTOMATED)2022-02-11 11:59:36 Test Item Value Reference Range Interpretation Comments POCT GLU (test code = 106 mg/dL 70-110 Notifi ed Provider [id number]) Lab Interpretation (test Normal code = 81328-6) [facility] METABOLIC PANEL (NA, K, CL, CO2, GLUCOSE, BUN, CREATININE, CA)2022-02-11 11:02:28 Test Item Value Reference Range Interpretation Comments NA (test code = 142 mmol/L 135-145 8513038600) K (test code = 3.3 mmol/L 3.5-5.0 L 0586514814) CL (test code = 111 mmol/L 98-108 H 3909937930) CO2 TOTAL (test code = 29 mmol/L 23-31 9527841380) AGAP (test code = 2-16 2853323562) BUN (test code = 16 mg/dL 7-23 2669010063) GLUCOSE (test code = 113 mg/dL 70-110 H 7149733189) CREATININE (test code = 0.51 mg/dL 0.60-1.25 L 1166925915) CALCIUM (test code = 7.7 mg/dL 8.6-10.6 L 8344855242) eGFR (test code = mL/min/1.73m2 9083514155) RANJIT (test code = RANJIT) Association of [...] tests). Lab Interpretation Abnormal (test code = 80214-9) [facility] WITHOUT [id number] 10:48:46 Test Item Value Reference Range Interpretation Comments WBC (test code = 6690-2) See_Comment H [A utomated message] The system [employer] generated this result transmit jake reference range : 4.20 - 10.70 10*3/?L. The reference range was not used to interpret this result as normal/abnormal . RBC (test code = 789-8) See_Comment L [Au tomated message] The system [employer] generated this result transmit jake reference range [...] 777-3) See_Comment [Au tomated message] The system [employer] generated this result transmit jake reference range : 150 - 328 10*3/?L. The reference range was not used to interpret this result as normal/abnormal . MPV (test code = 10.2 fL 9.8-13.0 52609-0) RDW-CV (test code = 12.4 % 12.1-15.4 788-0) RDW-SD (test code = 42.1 fL 38.5-51.6 49983-0) NRBC x10^3 (test code = See_Comment [Au tomated message] 0237311338) The system [employer] generated this result transmit jake reference range : 10*3/?L. The reference range was not used to interpret this result as normal/abnormal . NRBC/100 WBC (test code See_Comment [Au tomated message] = 8496346476) The system [employer] generated this result transmit jake reference range : 0.0 - 10.0 /100 WBC s. The reference r sera was not used to interpret this result as normal/abnormal . IPF % (test code = 7286024745) Lab Interpretation (test Abnormal code = 19879-4) [facility] T[facility] - Please draw a Vancomycin trough on _02/11/22_?@ _00:675738-72-09 07:20:25 Test Item Value Reference Range Interpretation Comments VANCO TROUGH (test code 6.3 ug/mL 10.0-20.0 L = 8667455241) RANJIT (test code = RANJIT) Toxic Range: ?>20 ug/mL 15-20 ug/mL is recommended for severe infection or when Vancomycin LINDA is greater than or equal to 2. Lab Interpretation (test Abnormal code = 41698-9) [facility] GLUCOSE (AUTOMATED)2022-02-11 05:58:50 Test Item Value Reference Range Interpretation Comments POCT GLU (test code = 120 mg/dL 70-110 H Notifi ed Provider [id number]) Lab Interpretation (test Abnormal code = 25122-5) [facility] GLUCOSE (AUTOMATED)2022-02-10 12:18:20 Test Item Value Reference Range Interpretation Comments POCT GLU (test code = 122 mg/dL 70-110 H Notifi ed Provider [id number]) Lab Interpretation (test Abnormal code = 16705-9) [facility] GLUCOSE (AUTOMATED)2022-02-10 06:16:43 Test Item Value Reference Range Interpretation Comments POCT GLU (test code = 127 mg/dL 70-110 H Notifi ed Provider [id number]) Lab Interpretation (test Abnormal code = 30516-0) [facility]wayPROCALCITONIN2023-01-02 23:58:33 Test Item Value Reference Interpretation Comments Range Procalcitonin (test 0.43 ng/mL See_Comment H [Automa jake code = 7084461503) message] The system which generated this result [...] lung abscess/empyema. For further information please refer to:[email or web address] Lab Interpretation Abnormal (test code = 03945-1) [facility] Panel 20 + Lactic [id number] 11:17:36 Test Item Value Reference Range Interpretation Comments PH (test code = 2) 7.35-7.45 H PCO2 (test code = See_Comment L [Automate d 3030858865) message] The sy stem which generated this result transmitted reference range : 35 - 45 mmHg. The reference range was not used to interpret this result as normal/abnormal . PO2 (test code = See_Comment H [Automated 9162076644) message] The sy stem which generated this result transmitted reference range : 80 - 100 mmHg. The reference range was not used to interpret this result as normal/abnormal . HCO3 (test code = See_Comment [Automate d 7555142665) message] The sy stem which generated this result transmitted reference range : 22 - 26 mEq/L. The reference range was not used to interpret this result as normal/abnormal . BE (test code = See_Comment H [Automated 0863357372) message] The sy stem which generated this result transmitted reference range : -3.0 - 3.0 mEq/ L. The reference r sera was not used to interpret this result as normal/abnormal . THB (test code = 12.2 g/dL 13.5-18.0 L 8788920335) %O2HB (test code = 98.2 % 94.0-99.0 9040308828) %COHB ART (test code = 0.3 % 0.0-1.5 3167245652) %METHB ART (test code = 0.3 % 0.4-1.5 L 1305850031) VOL%O2 ART (test code = 17.1 % 15.0-23.0 5728335460) NA (test code = 149 mmol/L 135-145 H 9149833713) K+ (test code = 3.0 mmol/L 3.5-5.0 L 7437259164) AC CA IONZ (test code = 4.70 mg/dL 4.50-5.30 2849310299) GLUCOSE (test code = 131 mg/dL 70-110 H 8123541098) LACTIC ACID (test code 1.04 mmol/L 0.50-2.20 = 5022193502) Lab Interpretation Abnormal (test code = 61551-9) [facility]wayTransthor[facility] (TTE)2022-02-07 20:40:20 Test Item Value Reference Range Interpretation Comments Height (test code = in 9376130803) Weight (test code = lbs 3186102833) Systolic BP (test code = mmHg 9275439814) Diastolic BP (test code mmHg = 9696796993) Heart Rate (test code = bpm 7010847566) BSA (test code = 1.73 m2 1428617254) IVS (test code = 0.96 cm 6290801974) Interventricular Septum 0.96 cm Diastolic Thickness by 2D (test code = 9757195) LVIDD (test code = 2.70 cm 1003456964) Left Ventricular End 27.6 mL Diastolic Volume by Teichholz Method (test code = 3707687) LVPWD (test code = 1.14 cm 7475688645) PW (test code = 1.14 cm 0.6-1.6 3284235130) EF(Teich) (test code = 50.10 % 5942953526) LVIDS (test code = 2.06 cm 2949714511) Left Ventricular End 13.8 mL Systolic Volume by Teichholz Method (test code = 2892409) FS (test code = 24 % 4070746458) EF - 2D (test code = 50.10 % 67556470) LVOT diameter (test code 2.19 cm = 6107945770) LVOT area (test code = 3.80 cm2 3510563284) Ao root diam (test code 3.30 cm = 3014609132) Aortic root (test code = 3.3 cm 5678811373) Ao root annulus (test 3.3 cm code = 8911490730) LA size (test code = 3.0 cm 9380039555) LAV(MOD-sp4) (test code 16.90 mL = 9268253915) MV Prop V (test code = 41.80 cm/s 8714779983) Tapse (test code = 1.48 cm 0187008082) LVOT stroke volume (test 47.10 cm3 code = 9205002601) LVOT peak debby (test code 88.5 cm/s = 0414660238) LVOT mn grad (test code mmHg = 6740355460) AV LVOT peak gradient mmHg (test code = 7704350243) LVOT peak VTI (test code 12.5 cm = 4428856210) LV V1 mean (test code = 53.00 cm/s 1393503783) Aortic valve mean 87.8 cm/s velocity (test code = 8052104903) Ao peak debby (test code = 145.3 cm/s 7360621657) Ao VTI (test code = 17.3 cm 4654071012) AV area by cont VTI 2.7 cm2 (test code = 7636922410) AV area peak debby (test 2.3 cm2 code = 9937657143) Ao max PG (test code = 8.40 mm[Hg] 3261673783) AV peak gradient (test mmHg code = 3353889533) AV valve area (test code 2.70 cm2 = 2491241938) AV mean gradient (test mmHg code = 0397926992) Radiology Study observation (narrative) (test code = 20575-7) RANJIT (test code = RANJIT) ?Left?Ventricle: Mild [...] A complete echocardiogram was performed using 2D. [facility] GLUCOSE (AUTOMATED)2022-02-07 17:54:37 Test Item Value Reference Range Interpretation Comments POCT GLU (test code = 103 mg/dL 70-110 Notifi ed Provider 5286230265) Lab Interpretation (test Normal code = 20313-9) [facility] GLUCOSE (AUTOMATED)2022-02-06 23:21:07 Test Item Value Reference Range Interpretation Comments POCT GLU (test code = 6616011780) 97 mg/dL 70-110 Lab Interpretation (test code = Normal 65506-4) [facility] GLUCOSE (AUTOMATED)2022-02-06 17:47:39 Test Item Value Reference Range Interpretation Comments POCT GLU (test code = 7137589219) 84 mg/dL 70-110 Lab Interpretation (test code = Normal 89196-4) [facility] METABOLIC PANEL (NA, K, CL, CO2, GLUCOSE, BUN, CREATININE, CA)2022-02-05 10:52:59 Test Item Value Reference Range Interpretation Comments NA (test code = 150 mmol/L 135-145 H 8788768374) K (test code = 3.2 mmol/L 3.5-5.0 L 9295388748) CL (test code = 118 mmol/L 98-108 H 2735533835) CO2 TOTAL (test code = 26 mmol/L 23-31 9466866864) AGAP (test code = 2-16 1581483252) BUN (test code = 25 mg/dL 7-23 H 7333502700) GLUCOSE (test code = 123 mg/dL 70-110 H 4863125927) CREATININE (test code = 0.61 mg/dL 0.60-1.25 0243476228) CALCIUM (test code = 8.7 mg/dL 8.6-10.6 6514261176) eGFR (test code = mL/min/1.73m2 4406122561) RANJIT (test code = RANJIT) Association of [...] tests). Lab Interpretation Abnormal (test code = 20454-2) [facility]wayMAGN[facility]UM2022-12-29 10:52:59 Test Item Value Reference Range Interpretation Comments MAGNESIUM (test code = 1152994210) 1.9 mg/dL 1.7-2.4 Lab Interpretation (test code = Normal 94992-0) [facility] WITHOUT [id number] 10:38:38 Test Item Value Reference Range Interpretation Comments WBC (test code = 6690-2) See_Comment H [A utomated message] The system [employer] generated this result transmit jake reference range : 4.20 - 10.70 10*3/?L. The reference range was not used to interpret this result as normal/abnormal . RBC (test code = 789-8) See_Comment [Au tomated message] The system [employer] generated this result transmit jake reference range [...] 777-3) See_Comment [Au tomated message] The system [employer] generated this result transmit jake reference range : 150 - 328 10*3/?L. The reference range was not used to interpret this result as normal/abnormal . MPV (test code = 10.5 fL 9.8-13.0 41534-8) RDW-CV (test code = 13.2 % 12.1-15.4 788-0) RDW-SD (test code = 46.9 fL 38.5-51.6 61455-1) NRBC x10^3 (test code = See_Comment [Au tomated message] 5639939479) The system whic h generated this result transmit jake reference range : 10*3/?L. The reference range was not used to interpret this result as normal/abnormal . NRBC/100 WBC (test code See_Comment [Au tomated message] = 6033346952) The system whi ch generated this result transmit jake reference range : 0.0 - 10.0 /100 WBC s. The reference r sera was not used to interpret this result as normal/abnormal . IPF % (test code = 7543595369) Lab Interpretation (test Abnormal code = 99269-3) [facility] ABG + LACTIC [id number] 10:36:21 Test Item Value Reference Range Interpretation Comments PH (test code = 2) 7.35-7.45 PCO2 (test code = See_Comment [Automate d 4315174176) message] The sy stem which generated this result transmitted reference range : 35 - 45 mmHg. The reference range was not used to interpret this result as normal/abnormal . PO2 (test code = See_Comment H [Automated 6675172398) message] The sy stem which generated this result transmitted reference range : 80 - 100 mmHg. The reference range was not used to interpret this result as normal/abnormal . HCO3 (test code = See_Comment [Automate d 7365535696) message] The sy stem which generated this result transmitted reference range : 22 - 26 mEq/L. The reference range was not used to interpret this result as normal/abnormal . BE (test code = See_Comment [Automated 4324485843) message] The sy stem which generated this result transmitted reference range : -3.0 - 3.0 mEq/ L. The reference r sera was not used to interpret this result as normal/abnormal . LACTIC ACID (test code 1.28 mmol/L 0.50-2.20 = 2562255168) Lab Interpretation Abnormal (test code = 62222-4) [facility] ABG + LACTIC [id number] 19:14:19 Test Item Value Reference Range Interpretation Comments PH (test code = 2) 7.35-7.45 H PCO2 (test code = See_Comment [Automate d 9730369055) message] The sy stem which generated this result transmitted reference range : 35 - 45 mmHg. The reference range was not used to interpret this result as normal/abnormal . PO2 (test code = See_Comment H [Automated 9502236297) message] The sy stem which generated this result transmitted reference range : 80 - 100 mmHg. The reference range was not used to interpret this result as normal/abnormal . HCO3 (test code = See_Comment H [Automate d 8318581588) message] The sy stem which generated this result transmitted reference range : 22 - 26 mEq/L. The reference range was not used to interpret this result as normal/abnormal . BE (test code = See_Comment H [Automated 2925936946) message] The sy stem which generated this result transmitted reference range : -3.0 - 3.0 mEq/ L. The reference r sera was not used to interpret this result as normal/abnormal . LACTIC ACID (test code 2.00 mmol/L 0.50-2.20 = 4583944499) Lab Interpretation Abnormal (test code = 21168-4) [facility] 20 + Lactic [id number] 17:32:01 Test Item Value Reference Range Interpretation Comments PH (test code = 2) 7.35-7.45 H PCO2 (test code = See_Comment L [Automate d [id number]) message] The sy stem which generated this result transmitted reference range : 35 - 45 mmHg. The reference range was not used to interpret this result as normal/abnormal . PO2 (test code = See_Comment L [Automated [id number]) message] The sy stem which generated this result transmitted reference range : 80 - 100 mmHg. The reference range was not used to interpret this result as normal/abnormal . HCO3 (test code = See_Comment [Automate d [id number]) message] The sy stem which generated this result transmitted reference range : 22 - 26 mEq/L. The reference range was not used to interpret this result as normal/abnormal . BE (test code = See_Comment H [Automated [id number]) message] The sy stem which generated this result transmitted reference range : -3.0 - 3.0 mEq/ L. The reference r sera was not used to interpret this result as normal/abnormal . THB (test code = 15.8 g/dL 13.5-18.0 1946039675) %O2HB (test code = 94.9 % 94.0-99.0 2842290320) %COHB ART (test code = 0.6 % 0.0-1.5 2208337703) %METHB ART (test code = 0.2 % 0.4-1.5 L 9285468964) VOL%O2 ART (test code = 21.1 % 15.0-23.0 0511349093) NA (test code = 149 mmol/L 135-145 H 3506386301) K+ (test code = 2.9 mmol/L 3.5-5.0 LL 7915622812) AC CA IONZ (test code = 5.00 mg/dL 4.50-5.30 6430198875) GLUCOSE (test code = 129 mg/dL 70-110 H 5118763696) LACTIC ACID (test code 1.95 mmol/L 0.50-2.20 = 7702269780) Lab Interpretation Abnormal (test code = 72424-7) [facility]CA2[facility]2022-02-04 15:45:44 Test Item Value Reference Range Interpretation Comments PH (test code = 2) 7.35-7.45 H PCO2 (test code = See_Comment L [Automate d message] 5860280215) The system [employer] generated this result transmit jake reference range : 35 - 45 mmHg. The reference range was not used to interpret this result as normal/abnormal . PO2 (test code = See_Comment LL [Automated message] 6072947954) The system [employer] generated this result transmit jake reference range : 80 - 100 mmHg. The reference range was not used to interpret this result as normal/abnormal . HCO3 (test code = See_Comment H [Automate d message] 8416487837) The system [employer] generated this result transmit jake reference range : 22 - 26 mEq/L. The reference range was not used to interpret this result as normal/abnormal . BE (test code = See_Comment H [Automated message] 3827470384) The system [employer] generated this result transmit jake reference range : -3.0 - 3.0 mEq/ L. The reference r sera was not used to interpret this result as normal/abnormal . THB (test code = 15.9 g/dL 13.5-18.0 9452874496) %O2HB (test code = 79.4 % 94.0-99.0 L 5347093215) %COHB ART (test code = 0.7 % 0.0-1.5 4592702360) %METHB ART (test code = 0.2 % 0.4-1.5 L 4500697910) VOL%O2 ART (test code = 17.7 % 15.0-23.0 3602312627) NA (test code = 149 mmol/L 135-145 H 1933512537) K+ (test code = 3.0 mmol/L 3.5-5.0 L 3822264822) AC CA IONZ (test code = 5.00 mg/dL 4.50-5.30 4778520717) GLUCOSE (test code = 118 mg/dL 70-110 H 9950797089) Lab Interpretation Abnormal (test code = 19704-5) [facility] GLUCOSE (AUTOMATED)2022-02-04 14:55:23 Test Item Value Reference Range Interpretation Comments POCT GLU (test code = 2897918231) 120 mg/dL 70-110 H Lab Interpretation (test code = Abnormal 66875-6) [facility] GLUCOSE (AUTOMATED)2022-02-04 14:45:07 Test Item Value Reference Range Interpretation Comments POCT GLU (test code = 1359327983) 117 mg/dL 70-110 H Lab Interpretation (test code = Abnormal 25087-2) [facility] GLUCOSE (AUTOMATED)2022-02-04 02:42:26 Test Item Value Reference Range Interpretation Comments POCT GLU (test code = 2950472995) 102 mg/dL 70-110 Lab Interpretation (test code = Normal 37143-4) [facility] GLUCOSE (AUTOMATED)2022-02-03 22:08:13 Test Item Value Reference Range Interpretation Comments POCT GLU (test code = 4809058900) 113 mg/dL 70-110 H Lab Interpretation (test code = Abnormal 17044-1) [facility] GLUCOSE (AUTOMATED)2022-02-03 17:38:52 Test Item Value Reference Range Interpretation Comments POCT GLU (test code = 1166309883) 111 mg/dL 70-110 H Lab Interpretation (test code = Abnormal 86350-3) [facility] GLUCOSE (AUTOMATED)2022-02-03 14:05:20 Test Item Value Reference Range Interpretation Comments POCT GLU (test code = 3978937807) 112 mg/dL 70-110 H Lab Interpretation (test code = Abnormal 36060-0) [facility] GLUCOSE (AUTOMATED)2022-02-03 02:50:27 Test Item Value Reference Range Interpretation Comments POCT GLU (test code = 8588543998) 98 mg/dL 70-110 Lab Interpretation (test code = Normal 21812-7) [facility]CA2+2022-02-02 20:39:05 Test Item Value Reference Range Interpretation Comments PH (test code = 2) 7.35-7.45 H PCO2 (test code = See_Comment L [Automat ed message] 8784750109) The system [employer] generated this result transmit jake reference range : 35 - 45 mmHg. The reference range was not used to interpret this result as normal/abnormal . PO2 (test code = See_Comment L [Automated message] 0325766724) The system [employer] generated this result transmit jake reference range : 80 - 100 mmHg. The reference range was not used to interpret this result as normal/abnormal . HCO3 (test code = See_Comment [Automate d message] 9199909949) The system [employer] generated this result transmit jake reference range : 22 - 26 mEq/L. The reference range was not used to interpret this result as normal/abnormal . BE (test code = See_Comment [Automated message] 6113349634) The system [employer] generated this result transmit jake reference range : -3.0 - 3.0 mEq/ L. The reference r sera was not used to interpret this result as normal/abnormal . THB (test code = 15.4 g/dL 13.5-18.0 9850426525) %O2HB (test code = 91.1 % 94.0-99.0 L 4998862613) %COHB ART (test code = 0.7 % 0.0-1.5 2858254263) %METHB ART (test code = 0.0 % 0.4-1.5 L 2021859927) VOL%O2 ART (test code = 0.0 % 15.0-23.0 L 3279662382) NA (test code = 140 mmol/L 135-145 5029484241) K+ (test code = 4.1 mmol/L 3.5-5.0 0916752412) AC CA IONZ (test code = 4.70 mg/dL 4.50-5.30 4784840143) GLUCOSE (test code = 102 mg/dL 70-110 6054130620) Lab Interpretation Abnormal (test code = 92003-7) [facility] + Lactic [id number] 16:09:22 Test Item Value Reference Range Interpretation Comments PH (test code = 2) 7.35-7.45 H PCO2 (test code = See_Comment L [Automate d 4971601311) message] The sy stem which generated this result transmitted reference range : 35 - 45 mmHg. The reference range was not used to interpret this result as normal/abnormal . PO2 (test code = See_Comment L [Automated 8548836122) message] The sy stem which generated this result transmitted reference range : 80 - 100 mmHg. The reference range was not used to interpret this result as normal/abnormal . HCO3 (test code = See_Comment [Automate d 1468819265) message] The sy stem which generated this result transmitted reference range : 22 - 26 mEq/L. The reference range was not used to interpret this result as normal/abnormal . BE (test code = See_Comment H [Automated 4949275196) message] The sy stem which generated this result transmitted reference range : -3.0 - 3.0 mEq/ L. The reference r sera was not used to interpret this result as normal/abnormal . THB (test code = 15.6 g/dL 13.5-18.0 1284700983) %O2HB (test code = 88.0 % 94.0-99.0 L 3973944977) %COHB ART (test code = 0.7 % 0.0-1.5 8145387353) %METHB ART (test code = 0.3 % 0.4-1.5 L 0586921780) VOL%O2 ART (test code = 19.2 % 15.0-23.0 6358478669) NA (test code = 140 mmol/L 135-145 2681865271) K+ (test code = 4.1 mmol/L 3.5-5.0 6258083308) AC CA IONZ (test code = 4.70 mg/dL 4.50-5.30 0752646775) GLUCOSE (test code = 102 mg/dL 70-110 8830532166) LACTIC ACID (test code 1.84 mmol/L 0.50-2.20 = 0756768456) Lab Interpretation Abnormal (test code = 22277-2) [facility] GLUCOSE (AUTOMATED)2022-02-02 14:44:12 Test Item Value Reference Range Interpretation Comments POCT GLU (test code = 0287842573) 93 mg/dL 70-110 Lab Interpretation (test code = Normal 18050-7) [facility]-GLUCOSE [id number] 05:32:00 Test Item Value Reference Range Interpretation Comments POC-GLUCOSE METER 100 mg/dL 70-110 TESTED AT [facility] [address] (BEAKER) (test code [facility] = 1538) [place] [address] [id number] 04:38:00 Test Item Value Reference Range Interpretation Comments PHOSPHORUS (BEAKER) (test code = 4.1 mg/dL 2.5-4.5 604) [id number] 04:38:00 Test Item Value Reference Range Interpretation Comments MAGNESIUM (BEAKER) (test code = 1.9 mg/dL 1.5-3.0 627) BASIC METABOLIC [id number] 04:38:00 Test Item Value Reference Range Interpretation Comments SODIUM (BEAKER) 141 meq/L 135-148 (test code = 381) POTASSIUM (BEAKER) 4.0 meq/L 3.5-5.5 (test code = 379) CHLORIDE (BEAKER) 107 meq/L 98-106 H (test code = 382) CO2 (BEAKER) (test 25 meq/L 20-31 code = 355) BLOOD UREA NITROGEN 12 mg/dL - (BEAKER) (test code = 354) CREATININE (BEAKER) [...] PATIEN TS. CBC W/PLT COUNT & AUTO [id number] 04:13:00 Test Item Value Reference Range Interpretation [...] L 0.00-0.20 (test code = 417) POCT-GLUCOSE [id number] 20:18:00 Test Item Value Reference Range Interpretation Comments POC-GLUCOSE METER 88 mg/dL 70-110 TESTED AT [address] (BEAKER) (test code = [facility] 1538) [place] [address] POCT-GLUCOSE [id number] 18:01:00 Test Item Value Reference Range Interpretation Comments POC-GLUCOSE METER 104 mg/dL 70-110 TESTED AT [address] (BEBANNER) (test code [facility] = 1538) [place] [address] POCT-GLUCOSE [id number] 13:13:00 Test Item Value Reference Range Interpretation Comments POC-GLUCOSE METER 74 mg/dL 70-110 TESTED AT [address] ([facility]) (test code = [facility] 1538) [place] [address] URINALYSIS W/ REFLEX URINE [id number] 02:14:00 Test Item Value Reference Range Interpretation [...] 1584) SOURCE(BEAKER) (test code = 2795) TROPONIN [id number] 00:41:00 Test Item Value Reference Range Interpretation [...] acute neurological disease, and persistent tachyarrhythmia.BASIC METABOLIC [id number] 00:37:00 Test Item Value Reference Range Interpretation [...] m DATA TO CALCULA TE ESTIMATED GFR. [id number] 00:33:00 Test Item Value Reference Range Interpretation Comments MAGNESIUM (BEAKER) 2.3 mg/dL 1.5-3.0 Specimen slightly (test code = 627) hemolyzed [id number] 00:33:00 Test Item Value Reference Range Interpretation Comments PHOSPHORUS (BEAKER) 3.8 mg/dL 2.5-4.5 Specimen slightly (test code = 604) hemolyzed CBC W/PLT COUNT & AUTO [id number] 00:18:00 Test Item Value Reference Range Interpretation [...] = 417) RAD, CHEST, 1 VIEW, NON [id number] 00:09:00Reason for exam:->ALTERED MENTAL STATUSShould this be [...] location of the gastric body. [facility]igned[facility] Verified Date/Time: 09/04/2017 00:09:13 Reading Location: [address] Transitional Reading Room CT, BRAIN, WITHOUT [id number] 00:01:00Reason for exam:- >ALTERED MENTAL STATUSWhat is [...] MDReport Verified Date/Time: 09/04/2017 00:01:45 Reading Location: [address] Reading Room "
[2022-12-21 21:15] LABS: SARS-CoV-2 Antigen Rapid Res Negative (Negative)
[2022-12-21 21:54] LABS: Absolute Lymphocytes (CBC) 1.1 K/uL (0.7-4.9); Hematocrit 49.5 % (39.6-49.0); Lymphocytes % 6.1 % (15.3-44.8); MPV 9.2 fL (7.6-11.3); Platelets 165 thou/uL (152-406); RBC Red Blood Cell Count 5.38 M/uL (4.33-5.43)
[2022-12-21 22:01] LABS: Albumin 3.3 g/dL (3.4-5.0); Bilirubin Total 0.5 mg/dL (0.2-1.0); Potassium 4.3 mEq/L (3.5-5.1); Protein, Total 7.9 g/dL (6.4-8.2)
[2022-12-21] MEDS ORDERED: HYDROCODONE/APAP 10/325 TAB ONE (22:19)
--- NOTE | 2022-12-21 22:54 | RAD REPORT ---
EXAM DESCRIPTION: CT - Abdomen Pelvis W Contrast - 12/21/2022 10:27 pm CLINICAL HISTORY: Abdominal pain COMPARISON: October 2022 TECHNIQUE: Computed axial tomography of the abdomen pelvis was obtained. 100 cc Isovue-300 was admin istered intravenously. Oral contrast was not requested which limits evaluation of bowel and appendix All CT scans are performed using dose optimization technique as appropriate and may include automated exposure control or mA/KV adjustment according to patient size. FINDINGS: Bilateral lower lobe opacities have mostly resolved since the prior exam Liver, spleen, pancreas and adrenals unremarkable. Small bilateral renal calculi. No hydronephrosis. Cholelithiasis. No gallbladder wall thickening. Percutaneous tube within the stomach Velazquez catheter within the bladder. Bladder wall thickening. Rectal wall thickening. Mild anterior subluxation L5 on S1. Spondylolysis L5 Thickening of the wall of the distal esophagus IMPRESSION: Rectal wall thickening may indicate inflammation Cholelithiasis without evidence cholecystitis. Nonobstructing renal calculi Thickening of the wall of the distal esophagus may indicate inflammation
[2022-12-21 22:58] LABS: Blood Morphology Comment NOT SEEN (NOT SEEN); Platelet Estimate ADEQ
--- NOTE | 2022-12-21 23:08 | ER ---
Nurse's Notes [facility] Name: Elliot Hathaway Age: 62 yrs Sex: Male : 1960 Arrival Date: 12/21/2022 Time: 19:33 Bed 15 Private MD: Diagnosis: Leukocytosis with bandemia, sepsis, influenza Presentation: 12/21 19:42 Chief complaint: EMS states: vomiting coffee ground emesis x 2 episodes,onset 1830. pf1 [facility] stated patient was given Phenergan IM at 1850 per [facility]. Coronavirus screen: Client denies travel out of the [place] in the last 14 days. At this time, the client does not indicate any symptoms associated with coronavirus-19. Ebola Screen: Patient negative for fever greater than or equal to 101.5 degrees Fahrenheit, and additional compatible Ebola Virus Disease symptoms. Initial Sepsis Screen: Does the patient meet any 2 criteria? No. Patient's initial sepsis screen is negative. Does the patient have a suspected source of infection? No. Patient's initial sepsis screen is negative. Risk Assessment: Do you want to hurt yourself or someone else? Unable to obtain. 19:42 Method Of Arrival: EMS: [facility] pf1 19:42 Acuity: KRISTINE 3 pf1 Historical: - PMHx: 19:47 Anxiety; brain injury; chronic respiratory failure with hypoxia; DYSPHAGIA; pf1 GASTROSTOMY; HEART FAILURE; hemiplegia; Hyperlipidemia; MRSA; Seizures; - PSHx: 19:47 gastric tube; pf1 19:49 tracheostomy; pf1 - Immunization history:: Adult Immunizations unknown. - Social history:: Smoking status: unknown. - Family history:: not pertinent. - Hospitalizations: : No recent hospitalization is reported. Screenin:51 [facility] ED Fall Risk Assessment (Adult) History of falling in the last 3 months, pf1 including since admission No falls in past 3 months (0 pts) Confusion or Disorientation No (0 pts) Intoxicated or Sedated No (0 pts) Impaired Gait Yes (1 pt) Mobility Assist Device Used Yes (1 pt) Altered Elimination Yes (1 pt) Score/Fall Risk Level 3 or more points = High Risk Oriented to surroundings, Maintained a safe environment, Educated pt \T\ family on fall prevention, incl call for assistance when getting out of bed, Assessed \T\ reinforced patient's understanding of fall precautions, Provided non-skid footwear, Hourly rounding (assess needs \T\ fall precautionary measures) done, Used ambulatory aids as needed (educated on \T\ assisted with), Implemented a Fall Risk Plan of Care, Apply high fall risk patient identification: yellow non skid footwear/ fall signage, Offered frequent toileting (1:1 observation), Remained with patient while ambulating, Utilized family, sitter, or virtual support teacher as indicated. Abuse screen: Denies threats or abuse. Nutritional screening: No deficits noted. Tuberculosis screening: No symptoms or risk factors identified. Assessment: 19:49 General: Appears in no apparent distress. comfortable, Behavior is appropriate for age. pf1 Pain: Unable to use pain scale. nonverbal. Neuro: Level of Consciousness is alert, Oriented to Appropriate for age. Cardiovascular: No deficits noted. Capillary refill < 3 seconds Patient's skin is warm and dry. Respiratory: No deficits noted. Airway is patent Respiratory effort is even, unlabored, Respiratory pattern is regular, symmetrical. GI: Abdomen is non-distended, Bowel sounds present X 4 quads. Parent/caregiver reports the patient having vomiting. : No deficits noted. No signs and/or symptoms were reported regarding the genitourinary system. EENT: No deficits noted. No signs and/or symptoms were reported regarding the EENT system. 20:30 Reassessment: Patient appears in no apparent distress at this time. Patient and/or pf1 family updated on plan of care and expected duration. Pain level reassessed. 21:30 Reassessment: Patient appears in no apparent distress at this time. Patient and/or pf1 family updated on plan of care and expected duration. Pain level reassessed. Patient states symptoms have improved. 22:30 Reassessment: Patient appears in no apparent distress at this time. Patient and/or pf1 family updated on plan of care and expected duration. Pain level reassessed. Patient states symptoms have improved. 22:40 Reassessment: respiratory at BS to suction patient's trach. pf1 23:30 Reassessment: Patient appears in no apparent distress at this time. Patient and/or pf1 family updated on plan of care and expected duration. Pain level reassessed. Patient states symptoms have improved. 12/22 00:34 Reassessment: patient cleaned of urine, applied brief. pf1 Vital Signs: 12/21 19:42 BP 133 / 98; Pulse 87; Resp 16; Temp 98.4; Pulse Ox 97% on R/A; Weight 46 kg; pf1 20:00 BP 134 / 95; Pulse 87; Resp 18 S; Pulse Ox 96% on R/A; ha1 21:00 BP 126 / 96; Pulse 97; Resp 18 S; Pulse Ox 96% on R/A; ha1 22:00 BP 127 / 94; Pulse 100; Resp 18 S; Pulse Ox 96% on R/A; ha1 23:00 BP 114 / 90; Pulse 98; Resp 18 S; Pulse Ox 97% on R/A; ha1 12/22 00:00 BP 117 / 90; Pulse 98; Resp 18 S; Temp 98.9(A); Pulse Ox 95% on R/A; pf1 ED Course: 12/21 19:41 Patient arrived in ED. pf1 19:47 Triage completed. pf1 19:49 Arm band placed on right wrist. pf1 19:51 Patient has correct armband on for positive identification. Bed in low position. Call pf1 light in reach. Side rails up X2. 19:57 Abelardo Babb MD is Attending Physician. rn 20:46 Attending Physician role handed off by Abelardo Babb MD sp3 20:46 Rachel Barton MD is Attending Physician. sp3 21:30 Inserted saline lock: 20 gauge in left antecubital area, using aseptic technique. Blood pf1 collected. US guided IV. 21:41 Lactate w/ 2H reflex if indic. Sent. kl 21:41 Type And Screen Sent. kl 21:41 Protime (+inr) Sent. kl 21:41 Ptt, Activated Sent. kl 21:41 CBC with Diff Sent. kl 21:41 CMP Sent. kl 21:41 Lipase Sent. kl 22:29 CT Abd/Pelvis - IV Contrast Only In Process Unspecified. EDMS 23:07 Angelica Franks MD is Hospitalizing Provider. sp3 23:53 Blood Culture Adult (2) Sent. pf1 23:53 UAM Sent. pf1 12/22 00:11 No provider procedures requiring assistance completed. pf1 00:15 Provided Education on: family education for admission. pf1 00:19 Chest Single View In Process Unspecified. EDMS 00:35 Patient admitted, IV remains in place. pf1 Administered Medications: 12/21 22:39 Drug: Alleman PO 10 mg-325 mg 1 tabs PO once {Note: per Gtube.} Route: PO; pf1 12/22 00:12 Follow up: Response: No adverse reaction; Marked relief of symptoms; Pain is decreased; pf1 RASS: Alert and Calm (0) 12/21 23:55 Drug: Cefepime IVPB 1 grams IVPB at 200 ml/hr once over 30 mins; (mix in NS 100 mL) pf1 Route: IVPB; Rate: 200 ml/hr; Infused Over: 30 mins; Site: left forearm; 12/22 00:12 Follow up: Response: No adverse reaction pf1 00:35 Follow up: IV Status: Completed infusion; IV Intake: 100ml pf1 Medication: 00:11 VIS not applicable for this client. pf1 Intake: 00:35 IV: 100ml; Total: 100ml. pf1 Outcome: 12/21 23:08 Decision to Hospitalize by Provider. sp3 12/22 00:35 Admitted to Med/surg accompanied by tech, via stretcher, room 212, with chart, Report pf1 called to EMA Choudhary Condition: stable Instructed on the need for admit, Demonstrated understanding of instructions, per family 00:40 Patient left the ED. pf1 Signatures: Dispatcher [employer] EDMS Gladys Broderick RN RN kl Nieto, Roman, MD MD rn Patel, Setul, MD MD sp3 Alexa Connor RN RN Penny Joseph RN RN pf1 Corrections: (The following items were deleted from the chart) 12/21 19:49 19:47 PSHx: tracheostomy (gastric tube); pf1 pf1 22:39 22:39 Alleman PO 10 mg-325 mg 1 tabs PO pf1 pf1 12/22 00:17 00:00 BP 117 / 90; Pulse 98bpm; Resp 18bpm; Spontaneous; Pulse Ox 95% RA; ha1 pf1
--- NOTE | 2022-12-21 23:08 | EDPHYS ---
Physician Documentation [facility] Name: Elliot Hathaway Age: 62 yrs Sex: Male : 1960 Arrival Date: 12/21/2022 Time: 19:33 Bed 15 Private MD: ED Physician Rachel Barton HPI: 12/21 20:29 This 62 yrs old Male presents to ER via EMS with complaints of Vomiting. rn 20:29 The patient presents to the emergency department with vomiting. Onset: The rn symptoms/episode began/occurred today. Possible causes: unknown. The symptoms are aggravated by nothing. The symptoms are alleviated by Phenergan. Severity of symptoms: At their worst the symptoms were mild in the emergency department the symptoms have improved. It is unknown whether or not the patient has had similar symptoms in the past. EMS reports called out to intermediate for vomiting x2, EMS states intermediate suspects coffee-ground emesis. No fever. Patient with tracheostomy and PEG tube. No recent PEG tube replacement in the last couple weeks. Caregiver denies any GI bleeding in the past.. Historical: - PMHx: 19:47 Anxiety; brain injury; chronic respiratory failure with hypoxia; DYSPHAGIA; pf1 GASTROSTOMY; HEART FAILURE; hemiplegia; Hyperlipidemia; MRSA; Seizures; - PSHx: 19:47 gastric tube; pf1 19:49 tracheostomy; pf1 - Immunization history:: Adult Immunizations unknown. - Social history:: Smoking status: unknown. - Family history:: not pertinent. - Hospitalizations: : No recent hospitalization is reported. ROS: 20:29 Constitutional: Negative for fever, chills, and weight loss, Cardiovascular: Negative rn for chest pain, palpitations, and edema, Respiratory: Negative for shortness of breath, cough, wheezing, and pleuritic chest pain, Abdomen/GI: Positive for vomiting Exam: 20:29 Constitutional: Thin malnourished male, no acute distress, somnolent presumably after rn Phenergan ENT: Dry mucous membranes, no stridor Neck: Tracheostomy in place, thick secretions, no obstruction Cardiovascular: Regular rate and rhythm. No pulse deficits. Respiratory: No increased work of breathing, no retractions or nasal flaring. Abdomen/GI: Soft, non-tender, PEG tube in place. MS/ Extremity: Pulses equal, no cyanosis. Neuro: Somnolent but awakens to painful stimuli 22:02 ECG was reviewed by the Attending Physician. EKG demonstrates normal sinus rhythm at 95 sp3 bpm with normal intervals, leftward axis, poor R wave progression with nonspecific diffuse ST/T changes without evidence of acute ischemia. Vital Signs: 19:42 BP 133 / 98; Pulse 87; Resp 16; Temp 98.4; Pulse Ox 97% on R/A; Weight 46 kg; pf1 20:00 BP 134 / 95; Pulse 87; Resp 18 S; Pulse Ox 96% on R/A; ha1 21:00 BP 126 / 96; Pulse 97; Resp 18 S; Pulse Ox 96% on R/A; ha1 22:00 BP 127 / 94; Pulse 100; Resp 18 S; Pulse Ox 96% on R/A; ha1 23:00 BP 114 / 90; Pulse 98; Resp 18 S; Pulse Ox 97% on R/A; ha1 12/22 00:00 BP 117 / 90; Pulse 98; Resp 18 S; Temp 98.9(A); Pulse Ox 95% on R/A; pf1 MDM: 12/21 19:57 Patient medically screened. rn 22:02 ED course: Patient signed out to me at 7 PM by daytime physician for continuance of sp3 care. Patient is a 62-year-old male with prior brain injury and multiple visits here who presents from the care facility for reported possible coffee-ground emesis. Vital signs of been normal here and patient has not had any episodes while here. Currently laboratory values and CT scan are still pending and if work-up is negative the plan is to discharge him back to the care facility. This has been communicated to patient and family members all questions have been answered.. 23:07 Data reviewed: vital signs, nurses notes, lab test result(s), radiologic studies. ED sp3 course: 62-year-old male signed out to me from dayshift. WBC conical 17,000 with left shift and bandemia on manual differential. Diffuse distal colonic inflammatory changes noted on CT scan. Will start cefepime, obtain urinalysis via cath and blood cultures and admit patient at this time.. 12/21 20:17 Order name: CBC with Diff; Complete Time: 23:04 rn 12/21 20:17 Order name: CMP; Complete Time: 23:04 rn 12/21 20:17 Order name: Lipase; Complete Time: 23:04 rn 12/21 20:17 Order name: Protime (+inr); Complete Time: 23:38 rn 12/21 20:17 Order name: Ptt, Activated; Complete Time: 23:38 rn 12/21 20:17 Order name: Type And Screen; Complete Time: 23:04 rn 12/21 20:17 Order name: Flu; Complete Time: 23:04 rn 12/21 20:17 Order name: SARS RAPID; Complete Time: 23:04 rn 12/21 20:17 Order name: Lactate w/ 2H reflex if indic.; Complete Time: 23:04 rn 12/21 22:17 Order name: Manual Differential; Complete Time: 23:04 EDMS 12/21 23:06 Order name: Blood Culture Adult (2) sp3 12/21 23:06 Order name: UAM sp3 12/21 23:39 Order name: CBC with Automated Diff EDMS 12/21 23:39 Order name: CBC with Automated Diff EDMS 12/21 23:39 Order name: Comprehensive Metabolic Panel EDMS 12/21 23:39 Order name: Comprehensive Metabolic Panel EDMS 12/21 23:39 Order name: Magnesium EDMS 12/21 23:39 Order name: Magnesium EDMS 12/21 23:39 Order name: Phosphorus EDMS 12/21 23:39 Order name: Phosphorus EDMS 12/21 20:17 Order name: CT Abd/Pelvis - IV Contrast Only; Complete Time: 23:04 rn 12/21 23:39 Order name: Chest Single View EDMS 12/21 20:17 Order name: EKG; Complete Time: 20:17 rn 12/21 20:17 Order name: IV Saline Lock; Complete Time: 00:19 rn 12/21 20:17 Order name: Labs collected and sent; Complete Time: 22:15 rn 12/21 20:17 Order name: EKG - Nurse/Tech; Complete Time: 22:03 rn 12/21 20:17 Order name: Cardiac monitoring; Complete Time: 22:03 rn Administered Medications: 22:39 Drug: [place] PO 10 mg-325 mg 1 tabs PO once {Note: per Gtube.} Route: PO; pf1 12/22 00:12 Follow up: Response: No adverse reaction; Marked relief of symptoms; Pain is decreased; pf1 RASS: Alert and Calm (0) 12/21 23:55 Drug: Cefepime IVPB 1 grams IVPB at 200 ml/hr once over 30 mins; (mix in NS 100 mL) pf1 Route: IVPB; Rate: 200 ml/hr; Infused Over: 30 mins; Site: left forearm; 12/22 00:12 Follow up: Response: No adverse reaction pf1 00:35 Follow up: IV Status: Completed infusion; IV Intake: 100ml pf1 Disposition Summary: 12/21/22 23:08 Hospitalization Ordered Notes: Hospitalization Status: Inpatient Admission sp3 Provider: Angelica Franks sp3 [facility] sp3 Condition: Stable sp3 Problem: an acute exacerbation sp3 Symptoms: have worsened sp3 Bed/Room Type: Standard sp3 Room Assignment: [facility](12/22/22 00:03) Diagnosis - Leukocytosis with bandemia, sepsis, influenza sp3 Forms: - Medication Reconciliation Form sp3 - SBAR form sp3 - Leadership Thank You Letter sp3 Signatures: Dispatcher Med[employer] EDMS Nelia Wooten, PAPER CUP MACHINE OPERATOR-C PAPER CUP MACHINE OPERATOR-Csnw Abelardo Babb MD MD rn Garcia, Cindy, RN RN cg Patel, Setul, MD MD sp3 Penny Varela RN RN pf1 Corrections: (The following items were deleted from the chart) 12/21 19:49 19:47 PSHx: tracheostomy (gastric tube); pf1 pf1 22:07 20:17 Urinalysis+U.LAB.BRZ ordered. EDID EDMS 12/22 00:03 12/21 23:08 sp3 cg
[2022-12-21 23:14] LABS: Protime INR 1.01
[2022-12-21] MEDS ORDERED: ONDANSETRON 4 MG/2 ML VIAL IV PRN (23:22)
[2022-12-21] MEDS ORDERED: NA CHLORIDE 0.9% 100 ML ONE (23:24)
[2022-12-22 00:27] LABS: Urine Bacteria None Seen /HPF (<20); Urine Bilirubin NEGATIVE (Negative); Urine Blood Negative (Negative); Urine Clarity Clear (Clear); Urine Color Light-Yellow (Yellow); Urine Glucose NEGATIVE (Negative); Urine Protein NEGATIVE (Negative); Urine RBC <5 /HPF (None Seen); Urine Urobilinogen Normal (Normal); Urine pH 7.5 (5.0-7.0)
[2022-12-22 00:30] LABS: Specific Gravity > 1.035 (1.005-1.030)
--- NOTE | 2022-12-22 00:32 | P.HP ---
Certification for Inpatient With expected LOS: >2 Midnights Patient will require the following post-hospital care: Intermediate Practitioner: I am a practitioner with admitting privileges, knowledge of patient current condition, hospital course, and medical plan of care. Services: Services provided to patient in accordance with Admission requirements found in Title 42 Section 412.3 of the Code of Federal Regulations Patient History Date of Service: 12/22/22 Primary Care Provider: YUE physician Reason for admission: Influenza B, enteritis History of Present Illness: Mr. Hathaway is a 62 yo patient with a history of TBI, chronic respiratory failue with contractures, tracheostomy, g-tube, and jimenez catheter who lives in area custodial nursing facility. He is awake and alert but nonverbal. He was sent to the ED today after two episodes of vomiting. Pt was found to be Influenza B positive but has leukocytosis and bandemia. He will be admitted for IV abx, pulmonary toilet, and serial labs. Allergies No Known Allergies Allergy (Unverified 05/24/22 13:26) Home medications list reviewed: Yes Home Medications: Acetaminophen [Tylenol Suppository] 650 mg [place] Q6HP PRN 08/06/22 Acetaminophen [Tylenol] 650 mg FT Q4HP PRN 08/06/22 Albuterol Sulfate [Albuterol Sulfate 0.083% Neb Soln] 2.5 mg IH Q6H 08/06/22 Gabapentin 300 mg FT TID 08/06/22 Hydrocodone 10/APAP 325 [[place] 10/325*] 1 tab FT Q8H 08/06/22 Hyoscyamine Sulfate [Levsin TAB*] 2 tab FT TID 08/06/22 Lactulose 30 ml FT DAILY 08/06/22 Loratadine [Claritin*] 10 mg FT DAILY 08/06/22 Mineral Oil/Petrolatum,White [Refresh P.m. Ointment] 0.25 inch LEFT EYE QID 08/06/22 Sennosides/Docusate Sodium [Senna Plus 8.6-50 mg Tablet] 2 each FT DAILY 08/06/22 Tizanidine HCl 4 mg FT BID 08/06/22 Valproic Acid (As Sodium Salt) [Valproic Acid] 7.5 ml FT BID 08/06/22 guaiFENesin [Chiquita-Tussin] 10 ml FT Q8H PRN 08/06/22 Buspirone HCl 5 mg FT Q8H 10/12/22 Multivit with Minerals/Lutein [Theratrum Complete 50 Plus Tab] 15 ml FT DAILY 10/12/22 Zinc Gluconate [Zinc] 50 mg FT 1700 10/12/22 Sertraline 25 mg FT DAILY 12/22/22 Sertraline [Zoloft] 100 mg FT DAILY 12/22/22 - Past Medical/Surgical History Diabetic: No -: Other specified degenerative diseases of nervous system -: Chronic Respiratory Failure with hypoxia -: Dysphagia -: Gastrostomy -: Heart Failure, unspecified -: Hemiplegia -: Hyperlipidemia -: MRSA -: Seizures -: Anxiety -: depression -: conjuctivitis -: PEG -: neurosurgery with craniectomy Psychosocial/ Personal History: unable to obtain, lives in [place] - Social History Smoking Status: Unknown if ever smoked Alcohol use: No CD- Drugs: No Caffeine use: No Place of Residence: [facility] Review of Systems General: Malaise Eyes: Unremarkable ENT: Nose Discharge Respiratory: Cough Cardiovascular: Unremarkable Gastrointestinal: Vomiting, Other (g tube) Genitourinary: Other (Jimenez) Musculoskeletal: As per HPI Neurological: Weakness, As per HPI Physical Examination - Physical Exam General: Alert, Other (difficulty communicating) HEENT: Other (TBI, skull defect to left frontoparietal area) Neck: Supple Respiratory: Rhonchi/gurgles, Other (trach) Cardiovascular: No edema, Normal pulses, Regular rate/rhythm Capillary refill: <2 Seconds Gastrointestinal: Soft and benign, Other (g tube), Tenderness (mild diffuse) Musculoskeletal: Contractures Neurological: Abnormal strength, Abnormal tone External genitalia: Deferred Rectal: Deferred - Studies Laboratory Data (last 24 hrs) 12/21/22 12/21/22 12/21/22 21:20 21:20 21:20 WBC 17.30 H Hgb 16.3 Hct 49.5 H Plt Count 165 PT 11.1 INR 1.01 APTT 31.0 Sodium 139 Potassium 4.3 BUN 21 H Creatinine 0.90 Glucose 107 H Total Bilirubin 0.5 AST 29 ALT 30 Alkaline Phosphatase 150 H Lipase 51 Microbiology Data (last 24 hrs): 12/21/22 20:44 Nasopharnyx Influenza Type A Antigen Screen - Final 12/21/22 20:44 Nasopharnyx Influenza Type B Antigen Screen - Final Assessment and Plan - Problems (Diagnosis) (1) Enteritis Current Visit: Yes Status: Acute Plan: Follow labs, gentle IV hydration, Strick I&O with g-tube small frequent clear liquids, Zofran 4mg IVPB prn N/V (2) Leukocytosis Current Visit: Yes Status: Acute Plan: Cefepime 1 gm Q 12h, pending Cultures. Pulmonary toilet, trach suctioning per respiratory prn with Albuterol Nebs as directed. Turn, cough, and deep breath Q 3h Qualifiers: Leukocytosis type: bandemia Qualified Code(s): D72.825 - Bandemia (3) Influenza Current Visit: Yes Status: Acute Plan: follow labs, pulmonary toilet, turn, cough, deep breath, positioning, prn antipyretics/antiemetics Discharge Plan: Senior Living Plan to discharge in: 72 Hours - Advance Directives Does patient have a Living Will: No Does patient have a Durable POA for Healthcare: No - Code Status/Comfort Care Code Status Assessed: Yes (Full code) Critical Care: No Time Spent Managing Pts Care (In Minutes): 60
[2022-12-22] MEDS: ALBUTEROL 2.5 MG/3 ML NEB SOL NEB SCH ×4 (01:30→19:30)
[2022-12-22 03:17] VITALS: BMI 20.4
[2022-12-22 03:30] LABS: Magnesium 2.2 mg/dL (1.6-2.4); Potassium 4.1 mEq/L (3.5-5.1)
[2022-12-22 03:31] LABS: Absolute Lymphocytes (CBC) 2.2 K/uL (0.7-4.9); Hematocrit 47.6 % (39.6-49.0); Lymphocytes % 14.5 % (15.3-44.8); MCV 91.5 fL (80-100); MPV 9.3 fL (7.6-11.3); Phosphorus 1.9 mg/dL (2.5-4.9); Platelets 142 thou/uL (152-406)
[2022-12-22 03:32] LABS: Bilirubin Total 0.5 mg/dL (0.2-1.0); Protein, Total 7.1 g/dL (6.4-8.2)
[2022-12-22] MEDS: NA CHLORIDE 0.9% 1,000 ML IV SCH ×2 (04:44→14:36)
[2022-12-22] MEDS: HYDROCODONE/APAP 10/325 TAB PO PRN ×3 (05:41→20:13)
[2022-12-22] MEDS: INSULIN REGULAR (HUMAN) 100 UNIT/ML SQ SCH ×4 (07:30→21:00)
[2022-12-22] MEDS: CEFEPIME 1 GM in NA CHLORIDE 0.9% 100 ML IV SCH ×2 (09:20→21:57)
[2022-12-22] MEDS: POTASS/SODIUM PHOSPHATE 1 PKT POWD.PACK PO SCH ×5 (09:21→14:32)
--- NOTE | 2022-12-22 09:27 | P.PN ---
Subjective Date of Service: 12/22/22 Primary Care Provider: YUE physician Chief Complaint: Influenza B, enteritis Subjective: Improving, Doing well Patient is alert, responding approprietly Denies any new complaints at this time On Trach collar, Spo2 92% mild tachycardia HR 114/min Denies pain History of Present Illness: Mr. Hathaway is a 62 yo patient with a history of TBI, chronic respiratory failue with contractures, tracheostomy, g-tube, and jimenez catheter who lives in area [facility] intermediate nursing facility. He is awake and alert but nonverbal. He was sent to the ED today after two episodes of vomiting. Pt was found to be Influenza B positive but has leukocytosis and bandemia. He will be admitted for IV abx, pulmonary toilet, and serial labs. Review of Systems 10-point ROS is otherwise unremarkable Physical Examination - Vital Signs Temperature: 98.0 F Blood Pressure: 140/94 Pulse: 108 Respirations: 16 Pulse Ox (%): 98 - Physical Exam General: Alert, In no apparent distress, Oriented x2 Neck: Supple, 2+ carotid pulse no bruit Respiratory: Clear to auscultation bilaterally, Normal air movement, Other (Trachesotomy status, intact, secretion cream cplored thick, moderate amount) Cardiovascular: No edema, Normal pulses, Normal S1 S2 Capillary refill: <2 Seconds Gastrointestinal: Normal bowel sounds, Soft and benign Musculoskeletal: No clubbing, No swelling, Other (bed confined) Neurological: Normal affect, Other (tracheostomy) - Studies Laboratory Data (last 24 hrs) 12/21/22 12/21/22 12/21/22 21:20 21:20 21:20 WBC 17.30 H Hgb 16.3 Hct 49.5 H Plt Count 165 PT 11.1 INR 1.01 APTT 31.0 Sodium 139 Potassium 4.3 BUN 21 H Creatinine 0.90 Glucose 107 H Total Bilirubin 0.5 AST 29 ALT 30 Alkaline Phosphatase 150 H Lipase 51 Microbiology Data (last 24 hrs): 12/21/22 20:44 Nasopharnyx Influenza Type A Antigen Screen - Final 12/21/22 20:44 Nasopharnyx Influenza Type B Antigen Screen - Final Assessment And Plan - Current Problems (Diagnosis) (1) Enteritis Current Visit: Yes Status: Acute Plan: acute, likely due to recent influenza improving. Pt denies abdominal pain, denies N&V Continue gentle IV hydration, Strict I&O with g-tube small frequent clear liquids, Zofran 4mg IVPB prn N/V (2) Influenza Current Visit: Yes Status: Acute Plan: Acute, follow labs, pulmonary toilet, turn, cough, deep breath, positioning, prn antipyretics/antiemetics (3) Leukocytosis Current Visit: Yes Status: Acute Plan: Acute, WBc today 15.3, No fever, mild tachycardia 114/min. Breathing normally on trach collar.continue to monitor WBC Continue Cefepime 1 gm Q 12h, pending Cultures. Continue aggressive Pulmonary toilet, trach suctioning per respiratory prn with Albuterol Nebs as directed. Titrate the Oxygen to keep the Fio2 above 92%. Turn, cough, and deep breath Q 3h Qualifiers: Leukocytosis type: bandemia Qualified Code(s): D72.825 - Bandemia Qualifiers: Leukocytosis type: bandemia Qualified Code(s): D72.825 - Bandemia (4) Diaper dermatitis Current Visit: Yes Status: Acute Plan: Acute, erythema and a small skin breakdown on the sacral area Skin care And the patient every 2 hours Barrier cream every 4 hours and after each diaper change Discharge Plan: Home Plan to discharge in: 24 Hours - Code Status/Comfort Care Code Status Assessed: Yes (full code) Code Status: Full Code Physician Review: Patient Assessed, Agree with Above Assessment and Plan Critical Care: No Time Spent Managing PTS Care (In Minutes): 35 (minutes)
[2022-12-22] MEDS ORDERED: guaiFENesin 100 MG/5 ML UCUP FT PRN (09:38)
[2022-12-22] MEDS ORDERED: ACETAMINOPHEN 325 MG TABLET FT PRN (09:38)
[2022-12-22] MEDS ORDERED: ACETAMINOPHEN 650MG/RECT SUPP PR PRN (09:38)
[2022-12-22] MEDS ORDERED: POLYVINYL ALCOHOL 1.4% 15 ML OPTH PRN (09:38)
[2022-12-22] MEDS ORDERED: ALBUTEROL 2.5 MG/3 ML NEB SOL IH SCH (10:00)
[2022-12-22] MEDS ORDERED: HYDROCODONE/APAP 10/325 TAB FT SCH (10:00)
[2022-12-22] MEDS ORDERED: NA CHLORIDE 0.9% 500 ML IV ONE (10:08)
[2022-12-22] MEDS: METRONIDAZOLE 500mg IVPB 500 MG/100 ML BAG IV SCH ×2 (14:31→20:12)
[2022-12-22] MEDS: GABAPENTIN 300 MG CAP FT SCH ×2 (14:32→20:13)
[2022-12-22] MEDS: LANO/MINERAL OIL/PETRO 3.5 GM LEFT EYE SCH ×3 (14:36→21:57)
[2022-12-22] MEDS: ZINC SULFATE 220 MG CAP FT SCH (17:00)
[2022-12-22] MEDS ORDERED: JEVITY 1.5 CAL LIQUID 1,000 ML BOT FT SCH (17:00)
[2022-12-22] MEDS: BUSPIRONE HCL 5 MG TABLET FT SCH (17:16)
[2022-12-22] MEDS: TIZANIDINE 4 MG TABLET FT SCH (20:13)
[2022-12-22] MEDS: VALPROIC ACID 250 MG/5 ML OSYR FT SCH (20:14)
[2022-12-22] MEDS ORDERED: ALBUMIN HUMAN 25% 200 ML IV ONE (21:11)
[2022-12-22] MEDS ORDERED: NA CHLORIDE 0.9% 1,000 ML IV ONE (21:11)
[2022-12-22] MEDS ORDERED: ALBUMIN HUMAN 25% 100 ML IV ONE (22:25)
[2022-12-22] MEDS ORDERED: ALBUMIN HUMAN 25% 50 ML IV ONE (22:26)
[2022-12-23] MEDS: BUSPIRONE HCL 5 MG TABLET FT SCH ×3 (01:54→17:08)
[2022-12-23] MEDS: ALBUTEROL 2.5 MG/3 ML NEB SOL NEB SCH ×4 (02:10→20:17)
[2022-12-23] MEDS: METRONIDAZOLE 500mg IVPB 500 MG/100 ML BAG IV SCH ×3 (04:56→20:06)
[2022-12-23] MEDS: NA CHLORIDE 0.9% 1,000 ML IV SCH ×2 (04:57→17:43)
[2022-12-23] MEDS: HYDROCODONE/APAP 10/325 TAB PO PRN ×2 (06:20→18:44)
[2022-12-23] MEDS: INSULIN REGULAR (HUMAN) 100 UNIT/ML SQ SCH ×4 (07:30→21:00)
[2022-12-23] MEDS ORDERED: POTASSIUM PHOS IN 0.9 % NACL 15 MMOL/250 ML BAG IV ONE (08:00)
[2022-12-23] MEDS: SERTRALINE HCL 50 MG TAB FT SCH (09:00)
[2022-12-23] MEDS: DOCUSATE NA/SENNA CONC 1 TAB FT SCH (09:00)
[2022-12-23] MEDS: MULTIVITAMINS 5 ML ORAL SYR FT SCH (09:00)
[2022-12-23] MEDS ORDERED: SERTRALINE HCL 100 MG TAB FT SCH (09:00)
[2022-12-23] MEDS: TIZANIDINE 4 MG TABLET FT SCH ×2 (09:00→20:06)
[2022-12-23] MEDS ORDERED: SERTRALINE 25 MG FT SCH (09:00)
[2022-12-23] MEDS: LACTULOSE 20 GM/30 ML UCUP FT SCH (09:19)
[2022-12-23] MEDS: VALPROIC ACID 250 MG/5 ML OSYR FT SCH ×2 (09:19→20:06)
[2022-12-23] MEDS: LORATADINE 10 MG TAB FT SCH (09:20)
[2022-12-23] MEDS: MAGNESIUM OXIDE 400 MG TAB FT SCH (09:20)
[2022-12-23] MEDS: GABAPENTIN 300 MG CAP FT SCH ×3 (09:20→20:06)
[2022-12-23] MEDS: LANO/MINERAL OIL/PETRO 3.5 GM LEFT EYE SCH ×4 (09:23→20:09)
[2022-12-23] MEDS: CEFEPIME 1 GM in NA CHLORIDE 0.9% 100 ML IV SCH ×2 (10:48→20:09)
[2022-12-23] MEDS: SERTRALINE HCL 100 MG TAB FT SCH (10:49)
--- NOTE | 2022-12-23 11:05 | RAD REPORT ---
EXAM DESCRIPTION: RAD - Chest Single View - 12/22/2022 12:18 am CLINICAL HISTORY: flu/poor clearance/trach COMPARISON: Chest Single View dated 10/14/2022; Chest Single View dated 10/12/2022; Chest Single View da jake 08/09/2022; Chest Single View dated 08/07/2022; Abdomen Pelvis W Contrast dated 12/21/2022 FINDINGS: Lines: Tracheostomy. Lungs: Mild improved aeration in the lung bases. Coarsened markings in the upper lungs. Pleural: No significant pleural effusions or pneumothorax. Cardiac: The heart size is within normal limits. Mediastinum: Within normal limits. Bones: No acute fractures. Other: None IMPRESSION: Coarsened interstitial markings but overall improvement in aeration of the lung bases co mpared with prior.
[2022-12-23] MEDS: ZINC SULFATE 220 MG CAP FT SCH (17:00)
--- NOTE | 2022-12-23 17:26 | EKG ---
Test Date: 2022-12-21 Test Time: 21:59:24 Technical Applications Scientist: RUSSELL MEASUREMENT RESULTS: Intervals: Rate: 95 MD: 130 QRSD: 76 QT: 348 QTc: 437 Cherry Log: P: 72 MD: 130 QRS: -63 T: 59 INTERPRETIVE STATEMENTS: Normal sinus rhythm Left axis deviation Inferior infarct, age undetermined Anterolateral infarct, age undetermined Abnormal ECG Compared to ECG 10/12/2022 01:49:51 Myocardial infarct finding now present ST (T wave) deviation no longer present Electronically Signed On 12-23-22 17:21:46 CONTACT ACID PLANT OPERATOR HELPER by Darryl Li
[2022-12-24] MEDS: BUSPIRONE HCL 5 MG TABLET FT SCH ×3 (00:46→17:00)
[2022-12-24] MEDS: HYDROCODONE/APAP 10/325 TAB PO PRN ×3 (00:46→11:57)
[2022-12-24] MEDS: ALBUTEROL 2.5 MG/3 ML NEB SOL NEB SCH ×3 (03:09→14:43)
[2022-12-24] MEDS: METRONIDAZOLE 500mg IVPB 500 MG/100 ML BAG IV SCH ×2 (04:06→12:55)
[2022-12-24] MEDS: INSULIN REGULAR (HUMAN) 100 UNIT/ML SQ SCH ×3 (07:30→16:30)
[2022-12-24] MEDS: MULTIVITAMINS 5 ML ORAL SYR FT SCH (08:51)
[2022-12-24] MEDS: DOCUSATE NA/SENNA CONC 1 TAB FT SCH (08:51)
[2022-12-24] MEDS: TIZANIDINE 4 MG TABLET FT SCH (08:51)
[2022-12-24] MEDS: LACTULOSE 20 GM/30 ML UCUP FT SCH (08:52)
[2022-12-24] MEDS: VALPROIC ACID 250 MG/5 ML OSYR FT SCH (08:52)
[2022-12-24] MEDS: SERTRALINE HCL 100 MG TAB FT SCH (08:54)
[2022-12-24] MEDS: SERTRALINE HCL 50 MG TAB FT SCH (08:55)
[2022-12-24] MEDS: CEFEPIME 1 GM in NA CHLORIDE 0.9% 100 ML IV SCH (08:55)
[2022-12-24] MEDS: LANO/MINERAL OIL/PETRO 3.5 GM LEFT EYE SCH ×3 (08:56→17:00)
[2022-12-24] MEDS: MAGNESIUM OXIDE 400 MG TAB FT SCH (08:57)
[2022-12-24] MEDS: LORATADINE 10 MG TAB FT SCH (08:57)
[2022-12-24] MEDS: GABAPENTIN 300 MG CAP FT SCH ×2 (08:57→12:55)
[2022-12-24] MEDS ORDERED: ALBUTEROL 2.5 MG/3 ML NEB SOL ONE (09:06)
[2022-12-24 10:31] VITALS: O2SAT 96
[2022-12-24] MEDS: NA CHLORIDE 0.9% 1,000 ML IV SCH (13:00)
[2022-12-24 16:42] VITALS: BP 114/67; TEMP 98.1
[2022-12-24 16:42] LABS: Albumin 2.6 g/dL (3.4-5.0); Bilirubin Total 0.3 mg/dL (0.2-1.0); Potassium 3.9 mEq/L (3.5-5.1); Protein, Total 5.8 g/dL (6.4-8.2)
[2022-12-24] MEDS: ZINC SULFATE 220 MG CAP FT SCH (17:00)
== END 2022-12-24 18:47 | DRG 153 ==
LOC: ER 19:33 → 2ND 23:23
PROVIDERS: ADMIT Hospitalist; ATTEND Hospitalist
DX: J11.1 Influenza due to unidentified influenza virus with other respiratory manifestations (principal); J96.11 Chronic respiratory failure with hypoxia; E78.5 Hyperlipidemia, unspecified; L22 Diaper dermatitis; K52.9 Noninfective gastroenteritis and colitis, unspecified; D72.825 Bandemia; Z93.1 Gastrostomy status; Z93.0 Tracheostomy status; Z11.52 Encounter for screening for COVID-19; Z86.14 Personal history of Methicillin resistant Staphylococcus aureus infection; Z79.899 Other long term (current) drug therapy; Z87.820 Personal history of traumatic brain injury
CPT/HCPCS: 36415; 71045; 74177; 80053; 81001; 82947; 83605; 83690; 83735; 84100; 85025; 85610; 85730; 86850; 86900; 86901; 87040; 87070; 87077; 87186; 87205; 87804; 87811; 93005; 94640; 94760; 96365; 99285; J0692; J7030; J7040; J7613; P9047; Q9967

== ENCOUNTER → 2023-02-16 | Emergency (ER) | payer OTHER ==
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
--- NOTE | 2023-02-16 04:23 | ER ---
Nurse's Notes [facility] Name: Elliot Hathaway Age: 62 yrs Sex: Male : 1960 Arrival Date: 02/16/2023 Time: 01:48 Bed 12 Private MD: Diagnosis: Gastrostomy complication, unspecified;Displaced gastrostomy tube Presentation: 02/16 02:05 Chief complaint: EMS states: He dislodged his peg tube. Coronavirus screen: At this vc1 time, the client does not indicate any symptoms associated with coronavirus-19. Ebola Screen: Patient negative for fever greater than or equal to 101.5 degrees Fahrenheit, and additional compatible Ebola Virus Disease symptoms Patient denies exposure to infectious person. Patient denies travel to an Ebola-affected area in the 21 days before illness onset. No symptoms or risks identified at this time. Initial Sepsis Screen: Does the patient meet any 2 criteria? No. Patient's initial sepsis screen is negative. Does the patient have a suspected source of infection? No. Patient's initial sepsis screen is negative. Risk Assessment: Do you want to hurt yourself or someone else? Patient reports no desire to harm self or others. Onset of symptoms was February 16, 2023. 02:05 Method Of Arrival: EMS: [facility] vc1 02:05 Acuity: KRISTINE 4 vc1 Triage Assessment: 02:12 General: Appears in no apparent distress. comfortable, Behavior is calm, quiet. Pain: vc1 Denies pain. EENT: No deficits noted. Neuro: Level of Consciousness is awake, Oriented to person, place, contractures. Cardiovascular: No deficits noted. Respiratory: Airway is patent Respiratory effort is even, unlabored, Respiratory pattern is regular, symmetrical. GI: peg tube removed. Historical: - Allergies: 02:10 No Known Allergies; vc1 - PMHx: 02:10 Anxiety; brain injury; chronic respiratory failure with hypoxia; DYSPHAGIA; vc1 GASTROSTOMY; HEART FAILURE; hemiplegia; Hyperlipidemia; MRSA; Seizures; - PSHx: 02:10 gastric tube; tracheostomy; vc1 - Immunization history:: unsure. - Social history:: Smoking status: Patient denies any tobacco usage or history of. - Family history:: not pertinent. Screenin:12 [facility] ED Fall Risk Assessment (Adult) History of falling in the last 3 months, vc1 including since admission No falls in past 3 months (0 pts) Confusion or Disorientation No (0 pts) Intoxicated or Sedated No (0 pts) Impaired Gait Yes (1 pt) Mobility Assist Device Used Yes (1 pt) Altered Elimination Yes (1 pt) Score/Fall Risk Level 3 or more points = High Risk Oriented to surroundings, Maintained a safe environment, Educated pt \T\ family on fall prevention, incl call for assistance when getting out of bed. Abuse screen: Denies threats or abuse. Nutritional screening: No deficits noted. Tuberculosis screening: No symptoms or risk factors identified. Assessment: 04:12 Reassessment: Patient and/or family updated on plan of care and expected duration. Pain vc1 level reassessed. GI: PEG tube in place, clamped. Site clean. Vital Signs: 02:05 BP 138 / 89; Pulse 94; Resp 17; Temp 98.7; Pulse Ox 100% ; vc1 02:18 Weight 46 kg; vc1 03:00 BP 145 / 90; Pulse 101; Resp 18; Pulse Ox 99% on 4 lpm trach collar; vc1 04:00 BP 126 / 92; Pulse 103; Resp 18; Pulse Ox 97% on 2 lpm Trach collar; vc1 ED Course: 01:55 Patient arrived in ED. jj6 01:59 Quentin Butcher MD is Attending Physician. sp4 02:10 Triage completed. vc1 02:11 Arm band placed on right wrist. vc1 02:12 Patient has correct armband on for positive identification. Bed in low position. Side vc1 rails up X2. Pulse ox on. NIBP on. 03:21 Abdomen 1 View XRAY In Process Unspecified. EDMS 04:12 Lynda Guevara RN is Primary Nurse. vc1 05:07 replaced g tube with a 16 ethiopian g tube and 20 cc saline. Patient did not have IV vc1 access during this emergency room visit. Administered Medications: 02:41 CANCELLED (Physician Discretion): diatrizoate meglumine \T\ sodiumliquid 60 ml PO once sp4 Medication: 02:12 VIS not applicable for this client. vc1 Outcome: 04:23 Discharge ordered by . sp4 05:08 Discharged to home ambulatory, vc1 05:08 Condition: good 05:08 Discharge instructions given to [facility], Instructed on discharge instructions, follow up and referral plans. Demonstrated understanding of instructions, follow-up care, 05:09 Patient left the ED. vc1 Signatures: Dispatcher [employer] Josefina Sheehan6 Lynda Guevara RN RN vc1 Quentin Butcher MD MD sp4
[2023-02-16 08:15] VITALS: TEMP 98.7
[2023-02-16 08:27] VITALS: BP 126/92; O2SAT 97
--- NOTE | 2023-02-16 11:51 | RAD REPORT ---
EXAM DESCRIPTION: RAD - Abdomen Single View - 02/16/2023 3:19 am CLINICAL HISTORY: The patient is 62 years old and is Male; with Gastrografin for G tube placement TECHNIQUE: Single supine view of the abdomen/pelvis. COMPARISON: No relevant prior studies available. FINDINGS: Gastrointestinal tract: See below. No dilation. Bones/joints: No acute fracture visualized. Tubes, lines and devices: PEG tube projects over the epigastric region. Oral contrast visualized in the duodenum and proximal jejunum. IMPRESSION: Delayed image of the abdomen demonstrates oral contrast in the proximal small bowel sugg esting appropriate placement of the PEG tube. Electronically signed by: Nguyen Nation MD 02/16/2023 04:12 AM GLOBAL PROGRAM MANAGER Due to temporary technical issues with the PACS/Fluency reporting system, reports are being signed by the in house radiologists without review as a courtesy to insure prompt reporting. The interpreting radiologist is fully responsible for the content of the report.
== END ==
LOC: ER 01:48
DX: K94.29 Other complications of gastrostomy (principal)
CPT/HCPCS: 74018; 99283

== ENCOUNTER → 2023-04-29 | Emergency (ER) | payer OTHER ==
--- NOTE | 2023-04-29 11:10 | RAD REPORT ---
EXAM DESCRIPTION: RAD - Abdomen Single View - 04/29/2023 10:59 am CLINICAL HISTORY: G-Tube placement COMPARISON: Abdomen Single View dated 02/16/2023; Abdomen Pelvis W Contrast dated 12/21/2022 FINDINGS/IMPRESSION: Enteric contrast present within the gastric lumen. The balloon is located in th e epigastrium. Based on these images, while the tip of the gastrostomy tube is likely within the stom ach, the balloon may or may not be. Enteric contrast also present within the small bowel and colon.
--- NOTE | 2023-04-29 11:20 | ER ---
Nurse's Notes [facility] Name: Elliot Hathaway Age: 63 yrs Sex: Male : 1960 Arrival Date: 04/29/2023 Time: 09:48 Bed 4 Private MD: Diagnosis: Gastric tube placement Presentation: 04/28 09:52 Chief complaint: EMS states: "Pt pulled out his G tube and it needs to be reinserted". rs5 Coronavirus screen: At this time, the client does not indicate any symptoms associated with coronavirus-19. Ebola Screen: No symptoms or risks identified at this time. Initial Sepsis Screen: Does the patient meet any 2 criteria? No. Patient's initial sepsis screen is negative. Does the patient have a suspected source of infection? No. Patient's initial sepsis screen is negative. Risk Assessment: Do you want to hurt yourself or someone else? Patient reports no desire to harm self or others. Onset of symptoms was April 29, 2023. 09:52 Method Of Arrival: EMS: [facility] rs5 09:52 Acuity: KRISTINE 3 rs5 09:52 Acuity: KRISTINE 4 rs5 Historical: - Allergies: 09:54 No Known Allergies; rs5 - PMHx: 09:54 Anxiety; brain injury; chronic respiratory failure with hypoxia; DYSPHAGIA; rs5 GASTROSTOMY; HEART FAILURE; hemiplegia; Hyperlipidemia; MRSA; Seizures; - PSHx: 09:54 gastric tube; tracheostomy; rs5 - Immunization history:: Adult Immunizations up to date. - Social history:: Smoking status: unknown. Screenin:52 [facility] ED Fall Risk Assessment (Adult) History of falling in the last 3 months, rs5 including since admission No falls in past 3 months (0 pts) Confusion or Disorientation No (0 pts) Intoxicated or Sedated No (0 pts) Impaired Gait Yes (1 pt) Mobility Assist Device Used No (0 pt) Altered Elimination No (0 pt) Score/Fall Risk Level 0 - 2 = Low Risk Oriented to surroundings, Maintained a safe environment. Abuse screen: Denies threats or abuse. Nutritional screening: No deficits noted. Tuberculosis screening: No symptoms or risk factors identified. Assessment: 09:52 General: Appears in no apparent distress. comfortable, Behavior is calm, cooperative. rs5 Pain: Denies pain. Neuro: Level of Consciousness is awake, alert, obeys commands, Oriented to person, place, time, situation. Cardiovascular: Patient's skin is warm and dry. Rhythm is regular. Respiratory: Respiratory effort is even, unlabored, Respiratory pattern is regular, symmetrical. GI: Abdomen is round non-distended, gastrostomy noted to abdomen, no redness or evidence of skin breakdown noted, EMS states "he pulled it out and nurses at [facility] called to have on reinserted ". 09:52 : No signs and/or symptoms were reported regarding the genitourinary system. EENT: No rs5 signs and/or symptoms were reported regarding the EENT system. Derm: Skin is intact, Skin is pink, warm \\T\\ dry. Musculoskeletal: Range of motion: intact in all extremities. 10:20 Reassessment: to bedside to assist provider with G tube reinsertion, pt tolerated rs5 procedure well. 11:02 Reassessment: Patient and/or family updated on plan of care and expected duration. Pain rs5 level reassessed. Patient is alert, oriented x 3, equal unlabored respirations, skin warm/dry/pink. 11:30 Reassessment: Pt up for discharge, [facility] contacted to arrange for transportation, rs5 estimated time of arrival is one hour, charge nurse notified . 12:00 Reassessment: awaiting for transportation. rs5 12:00 Reassessment: Patient and/or family updated on plan of care and expected duration. Pain rs5 level reassessed. Patient is alert, oriented x 3, equal unlabored respirations, skin warm/dry/pink. 12:45 Reassessment: [facility] contacted for transport, estimated time of arrival 30 min. rs5 13:10 Reassessment: awaiting for transportation . rs5 13:35 Reassessment: Patient and/or family updated on plan of care and expected duration. Pain rs5 level reassessed. Patient is alert, oriented x 3, equal unlabored respirations, skin warm/dry/pink. Report given to transport personnel at bedside \\[id number]\\[id number]. Vital Signs: 09:52 BP 135 / 92; Pulse 77; Resp 18; Temp 97.8(O); Pulse Ox 99% ; rs5 11:51 BP 130 / 85; Pulse 80; Resp 18; Pulse Ox 99% on R/A; rs5 13:01 BP 120 / 80; Pulse 77; Resp 18; Pulse Ox 99% on R/A; rs5 ED Course: 09:50 Patient arrived in ED. aa5 09:51 Rachel Barton MD is Attending Physician. sp3 09:51 Jimmy Davidson, RN is Primary Nurse. rs5 09:52 Patient has correct armband on for positive identification. Bed in low position. Call rs5 light in reach. Side rails up X2. 09:52 No provider procedures requiring assistance completed. rs5 09:54 Triage completed. rs5 11:01 Abdomen 1 View XRAY: gastrograffin In Process Unspecified. EDMS 13:40 Patient did not have IV access during this emergency room visit. rs5 Administered Medications: No medications were administered Medication: 11:51 VIS not applicable for this client. rs5 Outcome: 11:20 Discharge ordered by . sp3 13:40 Discharged to long-term. Report called to EMA Delgado from long-term rs5 13:40 Condition: stable 13:40 Instructed on follow up and referral plans. 13:51 Patient left the ED. rs5 Signatures: Dispatcher [employer] EDTN Cyn Encinas RN RN aa5 Rachel Barton MD MD sp3 Jimmy Davidson, EMA RN rs5 Corrections: (The following items were deleted from the chart) 14:38 12:30 Reassessment: [facility] contacted for transport, estimated time of arrival 30 rs5 min. rs5
--- NOTE | 2023-04-29 11:20 | EDPHYS ---
Physician Documentation [facility] Name: Elliot Hathaway Age: 63 yrs Sex: Male : 1960 Arrival Date: 04/29/2023 Time: 09:48 Bed 4 Private MD: ED Physician Rachel Barton HPI: 04/28 10:12 This 63 yrs old Male presents to ER via EMS with complaints of Problem With Feeding sp3 Tube. 10:12 63-year-old male with history of brain injury, chronic respiratory failure and sp3 nonverbal bedbound status now presents with chief complaint 18 Hebrew G-tube dislodgment. EMS states that patient was at [facility] yesterday for the same thing. New G-tube was placed at that time. Today there is no G-tube present whatsoever. Review of systems, history and physical otherwise severely limited.. Historical: - Allergies: 09:54 No Known Allergies; rs5 - PMHx: 09:54 Anxiety; brain injury; chronic respiratory failure with hypoxia; DYSPHAGIA; rs5 GASTROSTOMY; HEART FAILURE; hemiplegia; Hyperlipidemia; MRSA; Seizures; - PSHx: 09:54 gastric tube; tracheostomy; rs5 - Immunization history:: Adult Immunizations up to date. - Social history:: Smoking status: unknown. ROS: 10:14 Unable to obtain ROS due to baseline dementia, patient's inability to understand sp3 questions, Exam: 10:14 Abdomen/GI: Abdomen soft, nondistended and no peritoneal signs. G-tube tract is sp3 present without signs of infection. No bleeding is noted., Vital Signs: 09:52 BP 135 / 92; Pulse 77; Resp 18; Temp 97.8(O); Pulse Ox 99% ; rs5 11:51 BP 130 / 85; Pulse 80; Resp 18; Pulse Ox 99% on R/A; rs5 13:01 BP 120 / 80; Pulse 77; Resp 18; Pulse Ox 99% on R/A; rs5 MDM: 09:51 Patient medically screened. sp3 10:15 Data reviewed: vital signs, nurses notes, radiologic studies. ED course: Procedure sp3 note: Skin was cleaned with Betadine and sterile prep and 18 Hebrew gastric tube was placed by physician successfully without incident or bleeding. Post procedure Gastrografin abdominal x-ray is pending for placement confirmation and patient will be discharged subsequent to that review.. 11:18 ED course: X-ray is inconclusive about the balloon placement however the tip was sp3 confirmed to be in the stomach secondary to contrast being in the dependent part of the stomach. Had a discussion with the radiologist and he thinks it is likely the positioning of the tube which does not demonstrate the balloon. Clinically the G-tube slides and catches on the superior part of the antrum once the balloon hits. Clinically the tube is in correct positioning. Given contrast in the stomach itself I do not feel there is a reason to reimage. Will safely discharge the patient home at this time.. 04/28 10:11 Order name: Abdomen 1 View XRAY: gastrograffin; Complete Time: 11:12 sp3 Administered Medications: No medications were administered Disposition Summary: 04/29/23 11:20 Discharge Ordered Notes: Location: Home sp3 Condition: Stable sp3 Diagnosis - Gastric tube placement sp3 Followup: sp3 - With: Private Physician - When: Upon discharge from the Emergency Department - Reason: Continuance of care Discharge Instructions: - Discharge Summary Sheet sp3 - How to Care for a Feeding Tube sp3 Forms: - Medication Reconciliation Form sp3 - Thank You Letter sp3 - Antibiotic Education sp3 - Prescription Opioid Use sp3 - Patient Portal Instructions sp3 - Leadership Thank You Letter sp3 Signatures: Dispatcher [employer] EDRachel Rodas MD MD sp3 Jimmy Davidson RN RN rs5
[2023-04-29 14:26] VITALS: BP 130/85; TEMP 97.8; O2SAT 99
== END ==
LOC: ER 09:48
DX: Z43.1 Encounter for attention to gastrostomy (principal)
CPT/HCPCS: 74018; 99283

== ENCOUNTER 2023-05-13 11:58 | Emergency (ER) | payer OTHER ==
--- NOTE | 2023-05-13 12:07 | ER ---
Nurse's Notes [facility] Name: Elliot Hathaway Age: 63 yrs Sex: Male : 1960 Arrival Date: 05/13/2023 Time: 11:58 Bed 12 Private MD: Diagnosis: Gastrostomy malfunction Presentation: 05/12 12:03 Chief complaint: EMS states: "toned out for clogged G tube at [facility] mb9 home.". Coronavirus screen: Vaccine status: Patient reports receiving the 2nd dose of the covid vaccine. Ebola Screen: No symptoms or risks identified at this time. Initial Sepsis Screen: Does the patient meet any 2 criteria? No. Patient's initial sepsis screen is negative. Does the patient have a suspected source of infection? No. Patient's initial sepsis screen is negative. Risk Assessment: Do you want to hurt yourself or someone else? Patient reports no desire to harm self or others. Onset of symptoms was May 13, 2023. 12:03 Acuity: KRISTINE 4 mb9 12:03 Method Of Arrival: EMS: [facility] mb9 Triage Assessment: 12:06 General: Appears in no apparent distress. Behavior is calm, cooperative. Pain: Denies mb9 pain. EENT: No signs and/or symptoms were reported regarding the EENT system. Neuro: Level of Consciousness is awake, Oriented to Appropriate for age. Cardiovascular: Patient's skin is warm and dry. Respiratory: Airway is patent Respiratory effort is even, unlabored, Respiratory pattern is regular, symmetrical. GI: No signs and/or symptoms were reported involving the gastrointestinal system. GI: Oral gastric tube in place, Site clean. flushes easily. : No signs and/or symptoms were reported regarding the genitourinary system. Derm: Skin is pink, warm \\T\\ dry. Musculoskeletal: Range of motion: intact in all extremities. Historical: - Allergies: 12:05 No Known Allergies; mb9 - PMHx: 12:05 Anxiety; brain injury; chronic respiratory failure with hypoxia; DYSPHAGIA; mb9 GASTROSTOMY; HEART FAILURE; hemiplegia; MRSA; Hyperlipidemia; Seizures; - PSHx: 12:05 gastric tube; tracheostomy; mb9 - Immunization history:: Adult Immunizations up to date. - Infectious Disease History:: Denies. - Social history:: Smoking status: Patient denies any tobacco usage or history of. Screenin:07 [facility] ED Fall Risk Assessment (Adult) History of falling in the last 3 months, mb9 including since admission No falls in past 3 months (0 pts) Confusion or Disorientation No (0 pts) Intoxicated or Sedated No (0 pts) Impaired Gait Yes (1 pt) Mobility Assist Device Used Yes (1 pt) Altered Elimination No (0 pt) Score/Fall Risk Level 3 or more points = High Risk Oriented to surroundings, Maintained a safe environment, Educated pt \\T\\ family on fall prevention, incl call for assistance when getting out of bed. Abuse screen: Denies threats or abuse. Nutritional screening: No deficits noted. Tuberculosis screening: No symptoms or risk factors identified. Assessment: 12:16 Reassessment: Contacted [facility] to notify pt is ready for transfer aa5 back to their facility, report given to Mckenzie and states she will contact transport and call back with an ETA. . 12:22 Reassessment: Discharge pending ride back to [facility]. mb9 13:12 Reassessment: No changes from previously documented assessment. Patient and/or family mb9 updated on plan of care and expected duration. Pain level reassessed. 14:34 Reassessment: No changes from previously documented assessment. Patient and/or family mb9 updated on plan of care and expected duration. Pain level reassessed. Vital Signs: 12:03 BP 101 / 69; Pulse 77; Resp 16; Temp 98; Pulse Ox 97% on R/A; Weight 72.57 kg; Height 5 mb9 ft. 8 in. ; 14:35 BP 102 / 70; Pulse 74; Resp 14; Pulse Ox 96% on R/A; mb9 12:03 Body Mass Index 24.33 (72.57 kg, 172.72 cm) mb9 ED Course: 12:03 Patient arrived in ED. mb9 12:03 Arm band placed on. mb9 12:05 Triage completed. mb9 12:06 Oneil Shea MD is Attending Physician. ec2 12:08 Bed in low position. Call light in reach. Side rails up X 1. Provided Education on: mb9 flushing of G tube. Client placed on continuous cardiac and pulse oximetry monitoring. NIBP monitoring applied. Door closed. Noise minimized. Warm blanket given. 12:08 No provider procedures requiring assistance completed. Patient did not have IV access abe9 during this emergency room visit. 12:22 Lina Williamson, RN is Primary Nurse. mb9 12:25 per [facility] transportation can't be here until 1600. linus 13:31 Awaiting transportation. jl7 Administered Medications: No medications were administered Medication: 12:08 VIS not applicable for this client. mb9 Outcome: 12:06 Discharge ordered by . ec2 12:23 Discharged to [facility]. mb9 12:23 Condition: stable 12:23 Discharge instructions given to [facility], Instructed on discharge instructions, follow up and referral plans. Demonstrated understanding of instructions, follow-up care, 15:14 Patient left the ED. mb9 Signatures: Cyn Encinas, RN RN aa5 Jessica Reese RN RN jl7 Raiza Wheatley Mary Beth, RN RN mb9 Oneil Shea MD MD ec2
--- NOTE | 2023-05-13 12:07 | EDPHYS ---
Physician Documentation [facility] Name: Elliot Hathaway Age: 63 yrs Sex: Male : 1960 Arrival Date: 05/13/2023 Time: 11:58 Bed 12 Private MD: ED Physician Oneil Shea HPI: 05/12 12:07 This 63 yrs old Male presents to ER via EMS with complaints of clogged g tube.ec2 12:07 Patient arrives today for evaluation of a clogged G-tube. Care facility has been having ec2 issues with pulling back and now had issues with flushing it.. Historical: - Allergies: 12:05 No Known Allergies; mb9 - PMHx: 12:05 Anxiety; brain injury; chronic respiratory failure with hypoxia; DYSPHAGIA; mb9 GASTROSTOMY; HEART FAILURE; hemiplegia; MRSA; Hyperlipidemia; Seizures; - PSHx: 12:05 gastric tube; tracheostomy; mb9 - Immunization history:: Adult Immunizations up to date. - Infectious Disease History:: Denies. - Social history:: Smoking status: Patient denies any tobacco usage or history of. ROS: 12:07 Constitutional: as per hpi ec2 Exam: 12:07 Constitutional: GEN: NAD LUNGS: no respiratory distress ABD: non-distended, G-tube in ec2 place, no erythema around the tube site, soft, nontender, no guarding, not rigid SKIN: no evidence of rashes MSK: no evidence of trauma NEURO: moves all extremities equally Vital Signs: 12:03 BP 101 / 69; Pulse 77; Resp 16; Temp 98; Pulse Ox 97% on R/A; Weight 72.57 kg; Height 5 mb9 ft. 8 in. ; 14:35 BP 102 / 70; Pulse 74; Resp 14; Pulse Ox 96% on R/A; mb9 12:03 Body Mass Index 24.33 (72.57 kg, 172.72 cm) mb9 Procedures: 12:07 100cc g-tube flush. ec2 MDM: 12:06 Patient medically screened. ec2 12:07 Data reviewed: vital signs. ED course: Patient arrives today due to concern for ec2 malfunctioning G-tube. I was able to successfully force flush the G-tube including the clogging within the tube lining. I was able to appropriately aspirate gastric contents. Did not replace the tube. Will discharge home. Return precautions given. Administered Medications: No medications were administered Disposition Summary: 05/13/23 12:06 Discharge Ordered Notes: Location: Home ec2 Condition: Stable ec2 Diagnosis - Gastrostomy malfunction ec2 Followup: ec2 - With: Private Physician - When: - Reason: Re-evaluation by your physician Discharge Instructions: - Discharge Summary Sheet ec2 - PEG Tube Home Guide, [id number] ec2 Forms: - Medication Reconciliation Form ec2 - Thank You Letter ec2 - Antibiotic Education ec2 - Prescription Opioid Use ec2 - Patient Portal Instructions ec2 - Leadership Thank You Letter ec2 Signatures: Lina Williamson RN RN mb9 Oneil Shea MD MD ec2
[2023-05-13 16:46] VITALS: BP 102/70; TEMP 98; O2SAT 96
== END 2023-05-13 15:14 | disposition home or self-care (01) ==
LOC: ER 11:58
DX: K94.23 Gastrostomy malfunction (principal)
CPT/HCPCS: 99283

== ENCOUNTER 2023-05-31 17:14 | Emergency (ER) | payer OTHER ==
[2023-05-31] MEDS ORDERED: LIDOCAINE HCL JELLY 2% 6 ML SYRINGE TOP ONE (17:36)
[2023-05-31] MEDS ORDERED: LIDOCAINE VISCOUS 2% 10ML ORAL SOLN ONE (17:36)
--- NOTE | 2023-05-31 19:03 | RAD REPORT ---
EXAM DESCRIPTION: RAD - ENTEROSTOMY TUBE CHECK W/CONTR - 05/31/2023 6:54 pm CLINICAL HISTORY: replacement of gastrostomy tube Abdominal pain COMPARISON: Abdomen Single View dated 04/29/2023 FINDINGS: Two radiographs are submitted. Contrast is injected existing G tube. Contrast is seen in t he stomach fundus indicating appropriate placement. No leakage.
--- NOTE | 2023-05-31 19:11 | EDPHYS ---
Physician Documentation [facility] Name: Elliot Hathaway Age: 63 yrs Sex: Male : 1960 Arrival Date: 05/31/2023 Time: 17:14 Bed 16 Private MD: ED Physician Abelardo Babb HPI: 05/30 17:30 This 63 yrs old Male presents to ER via EMS with complaints of G-tube complaint. cp 17:30 Patient presents to ED via EMS from [facility] with c/o inability to flush cp gastrostomy tube. 17:30 Onset: The symptoms/episode began/occurred today. cp Historical: - Allergies: 17:26 No Known Allergies; rs5 - PMHx: 17:26 Anxiety; chronic respiratory failure with hypoxia; DYSPHAGIA; GASTROSTOMY; HEART rs5 FAILURE; hemiplegia; Hyperlipidemia; MRSA; Seizures; brain injury; - PSHx: 17:26 gastric tube; tracheostomy; rs5 - Immunization history:: Adult Immunizations up to date. - Infectious Disease History:: Denies. - Social history:: Smoking status: unknown. ROS: 17:33 All other systems are negative, cp Exam: 17:35 Constitutional: The patient appears in no acute distress, alert, awake, cp non-diaphoretic, non-toxic, well developed, well nourished, 17:35 Eyes: Periorbital structures: appear normal, Conjunctiva: normal, no exudate, no cp injection, Lids and lashes: appear normal, bilaterally, 17:35 Chest/axilla: Inspection: normal, 17:35 Cardiovascular: Rate: normal, 17:35 Respiratory: the patient does not display signs of respiratory distress, Respirations: labored breathing, is not present, Breath sounds: + upper airway congestion. 17:35 Abdomen/GI: Inspection: gastrostomy tube noted to be in place LUQ, surrounding skin appears with no erythema, Bowel sounds: active, all quadrants, Palpation: abdomen is soft and non-tender, in all quadrants, Vital Signs: 17:23 BP 126 / 87; Pulse 98; Resp 18; Pulse Ox 97% on R/A; rs5 17:41 BP 128 / 84; Pulse 80; Resp 18; Pulse Ox 99% on R/A; rs5 19:23 BP 126 / 91; Pulse 99; Resp 18; Temp 98.7; Pulse Ox 96% on R/A; bm8 21:40 BP 130 / 90; Pulse 106; Resp 20; Temp 98.7; Pulse Ox 97% ; Pain 0/10; bm8 21:40 Pain Scale: Non-Verbal bm8 Procedures: 19:10 G-tube placement: a 18 Czech catheter was placed, by the ED physician, Harry LI cp no complications, placement verified by X-ray. MDM: 17:25 Patient medically screened. cp 19:11 Data reviewed: vital signs, nurses notes, radiologic studies, plain films, and as a cp result, I will discharge patient. 05/30 18:09 Order name: PEG Tube Check w/contrast; Complete Time: 19:11 cp 05/30 19:11 Interpretation: Report reviewed. cp Administered Medications: 18:09 Drug: Viscous Lidocaine Mucous Membrane Liquid (4 %) 5 ml Mucous Membrane once Route: rs5 Mucous Membrane; Disposition: 05/31 09:01 Co-signature as Attending Physician, Abelardo Babb MD I reviewed the patient's care rn provided by the Advanced Practice Provider and agree with the diagnosis and treatment plan. Disposition Summary: 05/31/23 19:11 Discharge Ordered Notes: Location: Home cp Problem: new cp Symptoms: have improved cp Condition: Stable cp Diagnosis - Encounter for attention to gastrostomy cp Followup: cp - With: Private Physician - When: 1 - 2 days - Reason: Recheck today's complaints Discharge Instructions: - Discharge Summary Sheet cp - Gastrostomy Tube Replacement cp - Gastrostomy Tube Home Guide, Adult cp Forms: - Medication Reconciliation Form cp - Antibiotic Education cp - Prescription Opioid Use cp - Patient Portal Instructions cp - Leadership Thank You Letter cp - SBAR form jb4 Signatures: Dispatcher [employer] EDMS Abelardo Babb MD MD rn Page, Corey, PA PA cp Sotelo, Ricky RN RN rs5 Corrections: (The following items were deleted from the chart) 14:16 05/30 17:35 Head/Face: Normocephalic, atraumatic. cp cp
--- NOTE | 2023-05-31 19:11 | ER ---
Nurse's Notes [facility] Name: Elliot Hathaway Age: 63 yrs Sex: Male : 1960 Arrival Date: 05/31/2023 Time: 17:14 Bed 16 Private MD: Diagnosis: Encounter for attention to gastrostomy Presentation: 05/30 17:23 Chief complaint: EMS states: "Nurses at [place] side toned out EMS due to unable to flush rs5 gastrostomy tube". Coronavirus screen: At this time, the client does not indicate any symptoms associated with coronavirus-19. Ebola Screen: No symptoms or risks identified at this time. Initial Sepsis Screen: Does the patient meet any 2 criteria? No. Patient's initial sepsis screen is negative. Does the patient have a suspected source of infection? No. Patient's initial sepsis screen is negative. Risk Assessment: Do you want to hurt yourself or someone else? Patient reports no desire to harm self or others. Onset of symptoms was May 31, 2023. 17:23 Method Of Arrival: EMS: [facility] rs5 17:23 Acuity: KRISTINE 3 rs5 Historical: - Allergies: 17:26 No Known Allergies; rs5 - PMHx: 17:26 Anxiety; chronic respiratory failure with hypoxia; DYSPHAGIA; GASTROSTOMY; HEART rs5 FAILURE; hemiplegia; Hyperlipidemia; MRSA; Seizures; brain injury; - PSHx: 17:26 gastric tube; tracheostomy; rs5 - Immunization history:: Adult Immunizations up to date. - Infectious Disease History:: Denies. - Social history:: Smoking status: unknown. Screenin:22 [facility] ED Fall Risk Assessment (Adult) History of falling in the last 3 months, rs5 including since admission No falls in past 3 months (0 pts) Confusion or Disorientation No (0 pts) Intoxicated or Sedated No (0 pts) Impaired Gait No (0 pts) Mobility Assist Device Used No (0 pt) Altered Elimination No (0 pt) Score/Fall Risk Level 0 - 2 = Low Risk Oriented to surroundings, Maintained a safe environment. Abuse screen: Denies threats or abuse. Nutritional screening: No deficits noted. Tuberculosis screening: No symptoms or risk factors identified. Assessment: 17:22 General: Appears in no apparent distress. comfortable, Behavior is calm, cooperative. rs5 17:22 Pain: Unable to use pain scale. Does not appear to understand pain scale. Neuro: Level rs5 of Consciousness is awake, Oriented to none. Cardiovascular: Patient's skin is warm and dry. Rhythm is regular. Respiratory: Airway is patent Respiratory effort is even, unlabored, Respiratory pattern is regular, symmetrical. GI: PEG tube noted to pt's abdomen, no signs of redness or skin breakdown surrounding the ostomy. : No signs and/or symptoms were reported regarding the genitourinary system. EENT: No signs and/or symptoms were reported regarding the EENT system. Derm: Skin is intact, Skin is pink, warm \\T\\ dry. Musculoskeletal: Range of motion: intact in all extremities. 19:23 Reassessment:. General: Appears in no apparent distress. comfortable, Behavior is calm, bm8 cooperative. Pain: Unable to use pain scale. Does not appear to understand pain scale. Neuro: Level of Consciousness is awake, Oriented to none. Cardiovascular: Capillary refill < 3 seconds Patient's skin is warm and dry. Respiratory: Airway is patent Respiratory effort is even, unlabored, Respiratory pattern is regular, symmetrical. GI: G tube replaced by provider. : No signs and/or symptoms were reported regarding the genitourinary system. EENT: No signs and/or symptoms were reported regarding the EENT system. Derm: Skin is intact, Skin is pink, warm \\T\\ dry. Musculoskeletal: 21:40 Reassessment: ems here to vegetable picker pt. pt leaving now. bm8 Vital Signs: 17:23 BP 126 / 87; Pulse 98; Resp 18; Pulse Ox 97% on R/A; rs5 17:41 BP 128 / 84; Pulse 80; Resp 18; Pulse Ox 99% on R/A; rs5 19:23 BP 126 / 91; Pulse 99; Resp 18; Temp 98.7; Pulse Ox 96% on R/A; bm8 21:40 BP 130 / 90; Pulse 106; Resp 20; Temp 98.7; Pulse Ox 97% ; Pain 0/10; bm8 21:40 Pain Scale: Non-Verbal bm8 ED Course: 17:20 Patient arrived in ED. as6 17:22 Patient has correct armband on for positive identification. Placed in gown. Bed in low rs5 position. Call light in reach. Side rails up X2. 17:22 No provider procedures requiring assistance completed. rs5 17:23 Jimmy Davidsno, RN is Primary Nurse. rs5 17:24 Harry Brice PA is PHCP. cp 17:24 Abelardo Babb MD is Attending Physician. cp 17:26 Triage completed. rs5 18:56 PEG Tube Check w/contrast In Process Unspecified. EDMS 19:21 [facility] called for patient to return to facility. Spoke to prescription clerk ty who advised to inform the nurse of patient being discharged. 19:23 Pulse ox on. NIBP on. Door closed. Noise minimized. Warm blanket given. bm8 19:23 Patient did not have IV access during this emergency room visit. bm8 19:30 transfer transportation to receiving facility. bm8 19:31 Provided Education on: POST ER CARE to long term.. bm8 19:31 Arm band placed on left wrist. bm8 20:16 Primary Nurse role handed off by Jimmy Davidson RN bm8 21:07 [facility] Called to see about an ETA 15 minutes. ([id number]). ty 21:40 Ryan Saxena, RN is Primary Nurse. bm8 21:40 Suctioned via trachea - small amount thin clear sputum white sputum. bm8 Administered Medications: 18:09 Drug: Viscous Lidocaine Mucous Membrane Liquid (4 %) 5 ml Mucous Membrane once Route: rs5 Mucous Membrane; Medication: 17:41 VIS not applicable for this client. rs5 Outcome: 19:11 Discharge ordered by . cp 19:23 Discharged to long term. Report called to marcelino reyesdirector internal control form completed. bm8 19:28 Condition: stable bm8 19:28 Discharge instructions given to long term, Instructed on discharge instructions, follow up and referral plans. Demonstrated understanding of instructions, follow-up care, 21:42 Patient left the ED. bm8 Signatures: Dispatcher [employer] EDKS Harry Brice PA PA cp Slawson, Ashby, RN RN as6 Jimmy Davidson RN RN rs5 Benedict Jiang ty Ryan Saxena RN RN bm8 Corrections: (The following items were deleted from the chart) 19:30 19:23 Discharged to long term. Transfer form completed. bm8 bm8
[2023-05-31 21:58] VITALS: BP 130/90; TEMP 98.7; O2SAT 97
== END 2023-05-31 21:42 | disposition home or self-care (01) ==
LOC: ER 17:14
DX: Z43.1 Encounter for attention to gastrostomy (principal)
CPT/HCPCS: 49465; 99284

== ENCOUNTER 2023-07-04 15:02 | Emergency (ER) | payer OTHER ==
--- NOTE | 2023-07-04 15:38 | RAD REPORT ---
EXAM DESCRIPTION: RAD - Chest Single View - 07/04/2023 3:30 pm CLINICAL HISTORY: COUGH COMPARISON: Chest Single View dated 12/21/2022; Chest Single View dated 10/14/2022; Chest Single View dated 10/12/2022; Chest Single View dated 08/09/2022 FINDINGS: Lines: None. Lungs: Diffusely coarsened interstitial lung markings. Tracheostomy. Mild increased opacities in the retrocardiac region. Pleural: No significant pleural effusions or pneumothorax. Cardiac: The heart size is within normal limits. Mediastinum: Within normal limits. Bones: No acute fractures. Other: None IMPRESSION: Increased retrocardiac opacities could reflect mild pneumonia or pneumonitis.
--- NOTE | 2023-07-04 16:38 | ER ---
Nurse's Notes [facility] Name: Elliot Hathaway Age: 63 yrs Sex: Male : 1960 Arrival Date: 07/04/2023 Time: 15:02 Bed 3 Private MD: Diagnosis: Dislodged tracheostomy;Aspiration pneumonia Presentation: 07/03 15:05 Chief complaint: EMS states: toned out to [place] of tracheostomy coming out. ld1 Coronavirus screen: At this time, the client does not indicate any symptoms associated with coronavirus-19. Ebola Screen: No symptoms or risks identified at this time. Initial Sepsis Screen: Does the patient meet any 2 criteria? No. Patient's initial sepsis screen is negative. Does the patient have a suspected source of infection? No. Patient's initial sepsis screen is negative. Risk Assessment: Do you want to hurt yourself or someone else? Patient reports no desire to harm self or others. Onset of symptoms was July 04, 2023. 15:05 Method Of Arrival: EMS: [facility] ld1 15:05 Acuity: KRISTINE 2 ld1 Triage Assessment: 15:07 General: Appears in no apparent distress. uncomfortable, Behavior is cooperative, ld1 anxious. Pain: Unable to use pain scale. Does not appear to understand pain scale. EENT: No signs and/or symptoms were reported regarding the EENT system. Neuro: Level of Consciousness is awake, alert, obeys commands, Oriented to person, place, time, situation, Appropriate for age. Cardiovascular: Capillary refill < 3 seconds Patient's skin is warm and dry. Rhythm is sinus tachycardia. Respiratory: Airway is compromised Respiratory effort is even, labored, Sputum is purulent Pt arrived with trach pulled out. GI: Abdomen is flat, non-distended. : No signs and/or symptoms were reported regarding the genitourinary system. Derm: No signs and/or symptoms reported regarding the dermatologic system. Musculoskeletal: No signs and/or symptoms reported regarding the musculoskeletal system. Historical: - Allergies: 15:04 No Known Allergies; ld1 - PMHx: 15:04 Anxiety; brain injury; chronic respiratory failure with hypoxia; DYSPHAGIA; ld1 GASTROSTOMY; HEART FAILURE; hemiplegia; Hyperlipidemia; MRSA; Seizures; - PSHx: 15:04 gastric tube; tracheostomy; ld1 - Immunization history:: Adult Immunizations up to date. - Infectious Disease History:: Denies. - Social history:: Smoking status: Patient denies any tobacco usage or history of. - Family history:: not pertinent. Screenin:08 [facility] ED Fall Risk Assessment (Adult) History of falling in the last 3 months, ld1 including since admission No falls in past 3 months (0 pts). Abuse screen: Denies threats or abuse. Denies injuries from another. Nutritional screening: No deficits noted. Tuberculosis screening: No symptoms or risk factors identified. Assessment: 15:00 Reassessment: Patient appears in no apparent distress at this time. No changes from ld1 previously documented assessment. RT at bedside providing care. Trach placed back into place. 15:08 Reassessment: See triage assessment. ld1 16:40 Reassessment: Patient appears in no apparent distress at this time. No changes from ld1 previously documented assessment. Patient and/or family updated on plan of care and expected duration. Pain level reassessed. [facility] notified. Nursing staff calling transportation at this time. Patient states symptoms have improved. Vital Signs: 15:05 BP 137 / 95; Pulse 112; Resp 27; Pulse Ox 100% on R/A; ld1 15:05 Weight 75 kg; Height 5 ft. 8 in. ; ld1 15:42 BP 157 / 113; Pulse 107; Resp 21; Pulse Ox 98% on R/A; ld1 16:02 BP 142 / 104; Pulse 113; Resp 35 S; Pulse Ox 99% ; kc6 17:59 BP 147 / 108; Pulse 112; Resp 18; Pulse Ox 99% on R/A; ld1 15:05 Body Mass Index 25.14 (75.00 kg, 172.72 cm) ld1 ED Course: 15:04 Patient arrived in ED. eb 15:04 Trevor Riggs MD is Attending Physician. rt 15:06 Triage completed. ld1 15:07 Arm band placed on right wrist. ld1 15:08 Patient has correct armband on for positive identification. Placed in gown. Bed in low ld1 position. Call light in reach. Side rails up X2. playground monitor on. Pulse ox on. NIBP on. Door closed. Noise minimized. Warm blanket given. 15:32 Chest Single View XRAY In Process Unspecified. EDMS 15:37 Erna Esquivel, RN is Primary Nurse. ld1 16:24 Cleaned of incontinence. Linen changed. Pt soiled in urine and feces. Changed brief, ld1 clean sheets at this time. 18:30 No provider procedures requiring assistance completed. Patient did not have IV access ld1 during this emergency room visit. Administered Medications: No medications were administered Medication: 18:30 VIS not applicable for this client. ld1 Outcome: 16:38 Discharge ordered by . rt 18:30 Discharged to assisted. ld1 18:30 Condition: stable 18:30 Instructed on the need for transfer, 18:30 Patient left the ED. ld1 Signatures: Dispatcher [employer] EDSC Raiza Wheatley Lauren, RN RN ld1 Jerrica Harvey RN RN kc6 Trevor Riggs MD MD rt
--- NOTE | 2023-07-04 16:38 | EDPHYS ---
Physician Documentation [facility] Name: Elliot Hathaway Age: 63 yrs Sex: Male : 1960 Arrival Date: 07/04/2023 Time: 15:02 Bed 3 Private MD: ED Physician Trevor Riggs HPI: 07/03 18:44 This 63 yrs old Male presents to ER via EMS with complaints of Trach Problem. rt 18:44 History limited due to patient with tracheostomy. Patient's tracheostomy was reportedly rt dislodged at the [facility] just prior to arrival. No other reported symptoms. Symptoms are moderate in severity, no other aggravating or alleviating factors.. Historical: - Allergies: 15:04 No Known Allergies; ld1 - PMHx: 15:04 Anxiety; brain injury; chronic respiratory failure with hypoxia; DYSPHAGIA; ld1 GASTROSTOMY; HEART FAILURE; hemiplegia; Hyperlipidemia; MRSA; Seizures; - PSHx: 15:04 gastric tube; tracheostomy; ld1 - Immunization history:: Adult Immunizations up to date. - Infectious Disease History:: Denies. - Social history:: Smoking status: Patient denies any tobacco usage or history of. - Family history:: not pertinent. ROS: 18:44 Unable to obtain ROS due to Nonverbal patient, rt Exam: 18:44 Constitutional: This is a well developed, well nourished patient who is awake, alert, rt and in no acute distress. Chest/axilla: Normal chest wall appearance and motion. Nontender with no deformity. No lesions are appreciated. Cardiovascular: Regular rate and rhythm with a normal S1 and S2. No gallops, murmurs, or rubs. Normal PMI, no JVD. No pulse deficits. Abdomen/GI: Soft, non-tender, with normal bowel sounds. No distension or tympany. No guarding or rebound. No evidence of tenderness throughout. Skin: Warm, dry with normal turgor. Normal color with no rashes, no lesions, and no evidence of cellulitis. MS/ Extremity: Pulses equal, no cyanosis. Neurovascular intact. Full, normal range of motion. 18:44 Neck: Dislodged tracheostomy noted, 18:44 Respiratory: Coarse breath sounds over all lung tilley, mild respiratory distress, Vital Signs: 15:05 BP 137 / 95; Pulse 112; Resp 27; Pulse Ox 100% on R/A; ld1 15:05 Weight 75 kg; Height 5 ft. 8 in. ; ld1 15:42 BP 157 / 113; Pulse 107; Resp 21; Pulse Ox 98% on R/A; ld1 16:02 BP 142 / 104; Pulse 113; Resp 35 S; Pulse Ox 99% ; kc6 17:59 BP 147 / 108; Pulse 112; Resp 18; Pulse Ox 99% on R/A; ld1 15:05 Body Mass Index 25.14 (75.00 kg, 172.72 cm) ld1 Procedures: 18:44 Performed Tracheostomy replacement. I replaced the patient's tracheostomy without rt difficulty. Secretions noted, breath sounds noted bilaterally. X-ray confirms placement.. MDM: 15:05 Patient medically screened. rt 18:44 Differential Diagnosis Dislodged tracheostomy, aspiration. Data reviewed: vital signs, rt nurses notes, radiologic studies. Independent interpretation of the following test(s) in the Emergency Department X-Ray: My interpretation is Tracheostomy in place. Test considered but Not performed: Labs: Patient with chronic tachycardia, no fever. Suspect mild aspiration, labs not indicated. Care significantly affected by the following chronic conditions: CBI. Counseling: I had a detailed discussion with the patient and/or guardian regarding the historical points, exam findings, and any diagnostic results supporting the discharge/admit diagnosis, radiology results, the need for outpatient follow up. 07/03 15:04 Order name: Chest Single View XRAY; Complete Time: 15:45 rt Administered Medications: No medications were administered Disposition Summary: 07/04/23 16:38 Discharge Ordered Notes: Location: Home rt Problem: new rt Symptoms: have improved rt Condition: Stable rt Diagnosis - Dislodged tracheostomy rt - Aspiration pneumonia rt Followup: rt - With: Private Physician - When: 2 - 3 days - Reason: Discharge Instructions: - Discharge Summary Sheet rt - Tracheostomy rt - Aspiration Pneumonia, Adult rt - Tracheostomy Tube Safety and Care, Adult rt Forms: - Medication Reconciliation Form rt - Antibiotic Education rt - Prescription Opioid Use rt - Patient Portal Instructions rt - Leadership Thank You Letter rt Prescriptions: - Augmentin 875-125 mg Oral Tablet - take 1 tablet ORAL route every 12 hours for 10 days; 20 tablet; Refills: 0, rt Product Selection Permitted Signatures: Dispatcher [facility] Erna Jones, RN RN ld1 Trevor Riggs MD MD rt
[2023-07-04 18:49] VITALS: BP 147/108; O2SAT 99
== END 2023-07-04 18:30 | disposition home or self-care (01) ==
LOC: ER 15:02
DX: J95.03 Malfunction of tracheostomy stoma (principal); J69.0 Pneumonitis due to inhalation of food and vomit
CPT/HCPCS: 71045; 99284

== ENCOUNTER 2023-08-14 02:06 | Observation (INO) | payer OTHER ==
[2023-08-14] MEDS ORDERED: WATER FOR INJ,STERILE 20 ML ONE (03:07)
--- NOTE | 2023-08-14 04:53 | EDPHYS ---
Physician Documentation [facility] Name: Elliot Hathaway Age: 63 yrs Sex: Male : 1960 Arrival Date: 08/14/2023 Time: 02:06 Bed 6 Private MD: ED Physician Harry Owusu HPI: 08/13 04:46 This 63 yrs old Male presents to ER via EMS with complaints of peg out , maxi trach infected. 04:46 The patient has shortness of breath at rest. Onset: The symptoms/episode began/occurred maxi 3 day(s) ago. Duration: The symptoms are continuous, and are steadily getting worse. The patient's shortness of breath is aggravated by coughing, prone position. The patient presents with abdominal pain in the left upper quadrant, PEG OUT. Onset: The symptoms/episode began/occurred 2 day(s) ago. Associated signs and symptoms: Pertinent positives: productive cough. Severity of symptoms: At their worst the symptoms were moderate in the emergency department the symptoms are unchanged. The symptoms do not radiate. Historical: - Allergies: 02:28 No Known Allergies; vc1 - PMHx: 02:28 Anxiety; brain injury; chronic respiratory failure with hypoxia; DYSPHAGIA; vc1 GASTROSTOMY; HEART FAILURE; hemiplegia; Hyperlipidemia; MRSA; Seizures; - PSHx: 02:28 gastric tube; tracheostomy; vc1 - Immunization history:: Adult Immunizations unknown. - Infectious Disease History:: Denies. - Social history:: Smoking status: Patient denies any tobacco usage or history of. - Family history:: not pertinent. ROS: 04:46 Constitutional: Negative for fever, chills, and weight loss, Eyes: Negative for injury, maxi pain, redness, and discharge, Cardiovascular: Negative for chest pain, palpitations, and edema, Respiratory: Negative for shortness of breath, cough, wheezing, and pleuritic chest pain, Abdomen/GI: Negative for abdominal pain, nausea, vomiting, diarrhea, and constipation, Back: Negative for injury and pain, : Negative for injury, bleeding, discharge, and swelling, MS/Extremity: Negative for injury and deformity, Skin: Negative for injury, rash, and discoloration, Neuro: Negative for headache, weakness, numbness, tingling, and seizure, Psych: Negative for depression, anxiety, suicide ideation, homicidal ideation, and hallucinations, Allergy/Immunology: Negative for hives, rash, and allergies, Endocrine: Negative for neck swelling, polydipsia, polyuria, polyphagia, and marked weight changes, Hematologic/Lymphatic: Negative for swollen nodes, abnormal bleeding, and unusual bruising, 04:46 ENT: Positive for difficulty handling secretions, difficulty swallowing, sore throat, 04:46 Abdomen/GI: Positive for of the left upper quadrant, PEG OUT, Exam: 04:46 Constitutional: This is a well developed, well nourished patient who is awake, alert, maxi and in no acute distress. Head/Face: Normocephalic, atraumatic. Eyes: Pupils equal round and reactive to light, extra-ocular motions intact. Lids and lashes normal. Conjunctiva and sclera are non-icteric and not injected. Cornea within normal limits. Periorbital areas with no swelling, redness, or edema. Neck: Trachea midline, no thyromegaly or masses palpated, and no cervical lymphadenopathy. Supple, full range of motion without nuchal rigidity, or vertebral point tenderness. No Meningismus. Chest/axilla: Normal chest wall appearance and motion. Nontender with no deformity. No lesions are appreciated. Cardiovascular: Regular rate and rhythm with a normal S1 and S2. No gallops, murmurs, or rubs. Normal PMI, no JVD. No pulse deficits. Respiratory: Lungs have equal breath sounds bilaterally, clear to auscultation and percussion. No rales, rhonchi or wheezes noted. No increased work of breathing, no retractions or nasal flaring. Abdomen/GI: Soft, non-tender, with normal bowel sounds. No distension or tympany. No guarding or rebound. No evidence of tenderness throughout. Back: No spinal tenderness. No costovertebral tenderness. Full range of motion. Male : Normal genitalia with no discharge or lesions. Skin: Warm, dry with normal turgor. Normal color with no rashes, no lesions, and no evidence of cellulitis. 04:46 ENT: Posterior pharynx: Airway: THICK SECRETIONS, erythema, that is mild, Vital Signs: 02:31 BP 120 / 84; Pulse 85; Resp 14; Temp 96.3; Pulse Ox 96% ; Weight 76 kg; ty 04:00 BP 124 / 84; Pulse 88; Resp 18; Pulse Ox 95% ; pc2 06:28 BP 147 / 96; Pulse 97; Resp 16; Pulse Ox 97% ; pc2 MDM: 02:17 [facility] screened. [facility] 04:49 Differential diagnosis: pneumonia, gastritis, Peptic Ulcer Disease, PEG REPLACEMENT. [facility] Antibiotic administration: ZOSYN/ VANCO. Immunization status: Influenza vaccine: within last 5 years. Data reviewed: vital signs, nurses notes, lab test result(s), radiologic studies, plain films. Consideration of Admission/Observation Patient was admitted/placed on observation. Escalation of care including admission/observation considered. 08/13 04:43 Order name: CBC with Diff; Complete Time: 06:42 [facility] 08/13 04:43 Order name: Comprehensive Metabolic Panel; Complete Time: 08:14 [facility] 08/13 04:43 Order name: Sputum Culture [facility] 08/13 04:45 Order name: Depakote; Complete Time: 08:14 [facility] 08/13 05:59 Order name: CBC with Automated Diff EDID 08/13 05:59 Order name: CBC with Automated Diff EDID 08/13 05:59 Order name: Comprehensive Metabolic Panel EDID 08/13 05:59 Order name: Comprehensive Metabolic Panel EDID 08/13 04:43 Order name: Chest Single View XRAY [facility] 08/13 05:02 Order name: ENTEROSTOMY TUBE CHECK W/CONTR EDID 08/13 05:59 Order name: CONS Physician Consult EDMS Administered Medications: 06:10 Drug: NS 0.9% IV 1000 ml IV at 100 ml/hr continuous Route: IV; Rate: 100 ml/hr; Site: pc2 left hand; 06:16 Drug: Piperacillin-Tazobactam IVPB 3.375 grams IVPB once over 60 mins; (mix in NS 100 pc2 mL) Route: IVPB; Infused Over: 60 mins; Site: left hand; 06:24 Drug: Levalbuterol Inhalation 2.5 mg Inhalation once Route: Inhalation; pc2 06:24 Drug: Ipratropium Inhalation Aerosol 0.5 mg Inhalation once Route: Inhalation; pc2 06:50 Drug: vancoMYCIN IVPB 1 grams IVPB once over 2 hrs Route: IVPB; Infused Over: 2 hrs; pc2 Site: left hand; Disposition Summary: 08/14/23 04:52 Hospitalization Ordered Notes: Hospitalization Status: Observation [facility] Provider: [place], [place] maxi Location: Telemetry/MedSurg (observation) maxi Condition: Fair maxi Problem: new maxi Symptoms: have improved maxi Bed/Room Type: Standard [facility] Room Assignment: 205(08/14/23 05:08) cg Diagnosis - Gastrostomy complication, unspecified maxi - Encounter for attention to gastrostomy maxi - Tracheostomy status maxi - Tracheostomy complications - INFECTION, CELLULITIS maxi - Elevated white blood cell count maxi Forms: - Medication Reconciliation Form maxi - SBAR form maxi - Leadership Thank You Letter maxi Signatures: Dispatcher [employer] EDMS Harry Owusu MD MD cha Garcia, Cindy, RN RN cg Lynda Guevara RN RN vc1 Mandy Valencia, RN RN pc2 Corrections: (The following items were deleted from the chart) 05:02 04:43 Abdomen 1 View (KUB)+RAD.RAD.BRZ ordered. [facility] EDID 05:08 04:52 maxi cg
--- NOTE | 2023-08-14 04:53 | ER ---
Nurse's Notes [facility] Name: Elliot Hathaway Age: 63 yrs Sex: Male : 1960 Arrival Date: 08/14/2023 Time: 02:06 Bed 6 Private MD: Diagnosis: Gastrostomy complication, unspecified;Encounter for attention to gastrostomy;Tracheostomy status;Tracheostomy complications-INFECTION, CELLULITIS;Elevated white blood cell count Presentation: 08/13 02:24 Chief complaint: EMS states: Pt pulled out peg tube needs replacement. Coronavirus vc1 screen: At this time, the client does not indicate any symptoms associated with coronavirus-19. Ebola Screen: Patient negative for fever greater than or equal to 101.5 degrees Fahrenheit, and additional compatible Ebola Virus Disease symptoms Patient denies exposure to infectious person. Patient denies travel to an Ebola-affected area in the 21 days before illness onset. No symptoms or risks identified at this time. Initial Sepsis Screen: Does the patient meet any 2 criteria? No. Patient's initial sepsis screen is negative. Does the patient have a suspected source of infection? No. Patient's initial sepsis screen is negative. Risk Assessment: Do you want to hurt yourself or someone else? Patient reports no desire to harm self or others. Note 18French peg tube with 20CC balloon. Onset of symptoms was August 14, 2023. 02:24 Method Of Arrival: EMS: [facility] vc1 02:24 Acuity: KRISTINE 4 vc1 Triage Assessment: 03:41 General: Behavior is calm. pc2 Historical: - Allergies: 02:28 No Known Allergies; vc1 - PMHx: 02:28 Anxiety; brain injury; chronic respiratory failure with hypoxia; DYSPHAGIA; vc1 GASTROSTOMY; HEART FAILURE; hemiplegia; Hyperlipidemia; MRSA; Seizures; - PSHx: 02:28 gastric tube; tracheostomy; vc1 - Immunization history:: Adult Immunizations unknown. - Infectious Disease History:: Denies. - Social history:: Smoking status: Patient denies any tobacco usage or history of. - Family history:: not pertinent. Screenin:29 [facility] ED Fall Risk Assessment (Adult) History of falling in the last 3 months, pc2 including since admission No falls in past 3 months (0 pts) Confusion or Disorientation No (0 pts) Intoxicated or Sedated No (0 pts) Impaired Gait Yes (1 pt) Mobility Assist Device Used Yes (1 pt) Altered Elimination Yes (1 pt) Score/Fall Risk Level 3 or more points = High Risk Oriented to surroundings, Maintained a safe environment, Hourly rounding (assess needs \T\ fall precautionary measures) done, Implemented a Fall Risk Plan of Care, Apply high fall risk patient identification: yellow non skid footwear/ fall signage. Abuse screen: Denies threats or abuse. Denies injuries from another. Nutritional screening: No deficits noted. Tuberculosis screening: No symptoms or risk factors identified. Assessment: 03:33 General: Appears comfortable. Pain:. Neuro: Level of Consciousness is awake, alert, pc2 Oriented to person. Cardiovascular: Patient's skin is warm and dry. Respiratory: Airway via trache Trachea midline Respiratory effort is even, Respiratory pattern is regular. Respiratory: GI: Abdomen is non-distended. EENT: No signs and/or symptoms were reported regarding the EENT system. Derm: Skin is pink, warm \T\ dry. Skin temperature is warm. Musculoskeletal: No signs and/or symptoms reported regarding the musculoskeletal system. 04:30 Reassessment: Patient and/or family updated on plan of care and expected duration. Pain ha1 level reassessed. suction of trach completed. 05:30 Reassessment: Patient and/or family updated on plan of care and expected duration. Pain ha1 level reassessed. performed suctioning of trach. Vital Signs: 02:31 BP 120 / 84; Pulse 85; Resp 14; Temp 96.3; Pulse Ox 96% ; Weight 76 kg; ty 04:00 BP 124 / 84; Pulse 88; Resp 18; Pulse Ox 95% ; pc2 06:28 BP 147 / 96; Pulse 97; Resp 16; Pulse Ox 97% ; pc2 ED Course: 02:12 Patient arrived in ED. rv1 02:17 Harry Owusu MD is Attending Physician. maxi 02:28 Triage completed. vc1 03:30 Arm band placed on. pc2 03:32 Patient has correct armband on for positive identification. Bed in low position. Call pc2 light in reach. Side rails up X2. Pulse ox on. NIBP on. 04:52 Cesario Barrera MD is Hospitalizing Provider. maxi 05:05 Chest Single View XRAY In Process Unspecified. EDMS 05:05 ENTEROSTOMY TUBE CHECK W/CONTR In Process Unspecified. EDMS 05:45 Missed attempt(s): 22 gauge in right forearm. pc2 06:00 Inserted saline lock: 20 gauge in left hand, using aseptic technique. Blood collected. pc2 06:30 Sputum Culture Sent. pc2 06:30 Comprehensive Metabolic Panel Sent. pc2 06:30 CBC with Diff Sent. pc2 09:06 No provider procedures requiring assistance completed. Patient admitted, IV remains in kc6 place. Administered Medications: 06:10 Drug: NS 0.9% IV 1000 ml IV at 100 ml/hr continuous Route: IV; Rate: 100 ml/hr; Site: pc2 left hand; 06:16 Drug: Piperacillin-Tazobactam IVPB 3.375 grams IVPB once over 60 mins; (mix in NS 100 pc2 mL) Route: IVPB; Infused Over: 60 mins; Site: left hand; 06:24 Drug: Levalbuterol Inhalation 2.5 mg Inhalation once Route: Inhalation; pc2 06:24 Drug: Ipratropium Inhalation Aerosol 0.5 mg Inhalation once Route: Inhalation; pc2 06:50 Drug: vancoMYCIN IVPB 1 grams IVPB once over 2 hrs Route: IVPB; Infused Over: 2 hrs; pc2 Site: left hand; Medication: 03:41 VIS not applicable for this client. pc2 Outcome: 04:52 Decision to Hospitalize by Provider. [facility] 09:06 Admitted to Med/surg accompanied by tech, via stretcher, room 207, with oxygen, with kc6 chart, 09:06 Condition: stable 09:06 Instructed on the need for admit, 09:06 Patient left the ED. kc6 Signatures: Dispatcher [employer] Harry Mansfield MD MD cha Calcote, Vanessa, RN RN vc1 Alexa Connor RN RN ha1 Jerrica Harvey RN RN kc6 Tatyana Sosa1 Benedict Jiang Pam, RN RN pc2 Corrections: (The following items were deleted from the chart) 07:26 04:30 Reassessment: Patient and/or family updated on plan of care and expected ha1 duration. Pain level reassessed. ha1 07:28 04:30 Reassessment: Patient and/or family updated on plan of care and expected ha1 duration. Pain level reassessed. suction provide ha1
[2023-08-14] MEDS ORDERED: IPRATROPIUM BROM 0.5MG/2.5ML ONE (05:36)
[2023-08-14] MEDS ORDERED: VANCOMYCIN 1 GM/VIAL ONE (05:36)
[2023-08-14] MEDS ORDERED: LEVALBUTEROL 1.25 MG/3 ML NEB ONE (05:37)
[2023-08-14] MEDS ORDERED: NA CHLORIDE 0.9% 250 ML ONE (05:37)
[2023-08-14] MEDS ORDERED: NA CHLORIDE 0.9% 100 ML ONE (05:37)
[2023-08-14] MEDS ORDERED: NA CHLORIDE 0.9% 1,000 ML ONE (05:38)
[2023-08-14] MEDS ORDERED: PIPERACIL/TAZO 3.375 GM VIAL IV ONE (05:38)
[2023-08-14] MEDS ORDERED: ALBUTEROL 2.5 MG/3 ML NEB SOL NEB PRN (05:55)
--- NOTE | 2023-08-14 05:55 | P.HP ---
Certification for Inpatient Patient admitted to: Observation With expected LOS: <2 Midnights Patient will require the following post-hospital care: None Practitioner: I am a practitioner with admitting privileges, knowledge of patient current condition, hospital course, and medical plan of care. Services: Services provided to patient in accordance with Admission requirements found in Title 42 Section 412.3 of the Code of Federal Regulations Patient History Date of Service: 08/14/23 Reason for admission: PEG tube dislodgment History of Present Illness: 63-year-old with history of traumatic brain injury, with paraplegia, heart failure, seizure history, [facility] resident, resident, indwelling PEG tube, also indwelling trach with collar sent from [facility] after accidentally displaced PEG tube. On arrival in the ED PEG tube was replaced. Patient was noted with copious secretions from the trach collar as well as erythema of the trach site. He has been admitted for further observation for cellulitis. Vital signs stable, afebrile. Chest x-ray and laboratory workup pending Allergies No Known Allergies Allergy (Unverified 05/24/22 13:26) Home Medications: Acetaminophen [Tylenol*] 650 mg [place] Q6HP PRN 08/06/22 Acetaminophen [Tylenol] 650 mg FT Q4HP PRN 08/06/22 Albuterol Sulfate [Albuterol Sulfate 0.083% Neb Soln] 2.5 mg IH Q6H 08/06/22 Gabapentin 300 mg FT TID 08/06/22 Hydrocodone 10/APAP 325 [[place] 10/325*] 1 tab FT Q8H 08/06/22 Hyoscyamine Sulfate [Levsin TAB*] 2 tab FT TID 08/06/22 Lactulose 30 ml FT DAILY 08/06/22 Loratadine [Claritin*] 10 mg FT DAILY 08/06/22 Mineral Oil/Petrolatum,White [Refresh P.m. Ointment] 0.25 inch LEFT EYE QID 08/06/22 Sennosides/Docusate Sodium [Senna Plus 8.6-50 mg Tablet] 2 each FT DAILY 08/06/22 Tizanidine HCl 4 mg FT BID 08/06/22 Valproic Acid (As Sodium Salt) [Valproic Acid] 7.5 ml FT BID 08/06/22 guaiFENesin [Chiquita-Tussin] 10 ml FT Q8H PRN 08/06/22 Buspirone HCl 5 mg FT Q8H 10/12/22 Multivit with Minerals/Lutein [Theratrum Complete 50 Plus Tab] 15 ml FT DAILY 10/12/22 Zinc Gluconate [Zinc] 50 mg FT 1700 10/12/22 Carboxymethylcellulose Sodium [Artificial Tears] 1 drop EACH EYE Q12HP PRN 12/22/22 Lactose-Reduced Food/Fiber [Isosource 1.5 Meño Tube Feed Lq] See Rx Instructions .ROUTE .COMPLEX 12/22/22 Magnesium Oxide [Mag 0X*] 400 mg FT DAILY 12/22/22 Mupirocin Oint [Bactroban 2% Ointment*] 1 appl TP DAILY 12/22/22 Sertraline 25 mg FT DAILY 12/22/22 Sertraline [Zoloft*] 100 mg FT DAILY 12/22/22 Cefaclor [Ceclor] 5 ml PO BID #100 ml 12/24/22 Jevity 1.5 Meño Liquid 1,000 ml FT CONT #1 bot 12/24/22 Metronidazole 500 mg PO BID #20 tab 12/24/22 Sertraline [Zoloft*] 100 mg FT DAILY #30 tab 12/24/22 - Past Medical/Surgical History Diabetic: No -: Other specified degenerative diseases of nervous system -: Chronic Respiratory Failure with hypoxia -: Dysphagia -: Gastrostomy -: Heart Failure, unspecified -: Hemiplegia -: Hyperlipidemia -: MRSA -: Seizures -: Anxiety -: depression -: conjuctivitis -: PEG -: neurosurgery with craniectomy Psychosocial/ Personal History: unable to obtain, lives in [place] - Social History Alcohol use: No CD- Drugs: No Caffeine use: No Place of Residence: [place] Review of Systems is unable to be obtained Physical Examination - Physical Exam General: Demented, Confused, Other HEENT: Other (large convex deviation of left half of skull) Neck: Other (Trach in situ, copious secretion around exit site with some erythema) Respiratory: Clear to auscultation bilaterally, Normal air movement Cardiovascular: Normal pulses, Regular rate/rhythm, Normal S1 S2 Gastrointestinal: Normal bowel sounds, Soft and benign, No tenderness (PEG tube in situ, replace) Musculoskeletal: No clubbing, No swelling Neurological: Other (Nonverbal, paraparesis) Assessment and Plan - Plan Impression Trach site cellulitis PEG tube dislodgmentstatus post replaced History of seizures History of traumatic brain injury residential resident Plan Start empirical antibiotics with cefepime Gentle IV fluid with normal saline Consult ENT Dr. Andrade for trach site possible replacement Subcutaneous Lovenox for DVT prophylaxis Full code Follow-up pending labs as well as x-ray - Advance Directives Does patient have a Living Will: No Does patient have a Durable POA for Healthcare: No
[2023-08-14] MEDS ORDERED: HYDRALAZINE HCL 20 MG/ML VIAL IV PRN (05:57)
[2023-08-14 06:29] LABS: Absolute Lymphocytes (CBC) 2.3 K/uL (0.7-4.9); Absolute Neutrophil 8.9 K/uL (1.8-8.0); Basophils % 0.2 % (0-1.3); Eosinophils % 7.7 % (0-4.4); Hematocrit 48.8 % (39.6-49.0); Hemoglobin 16.5 g/dL (13.6-17.9); Lymphocytes % 17.3 % (15.3-44.8); MCH 33.1 pg (27.0-35.0); MCHC 33.7 g/dL (32.0-36.0); MCV 98.3 fL (80-100); MPV 9.6 fL (7.6-11.3); Monocytes % 7.6 % (3.3-12.3); Neutrophils % 67.2 % (41.7-73.7); Nucleated Red Blood Cells % 0.1 % (0-0); Platelets 139 thou/uL (152-406); RBC Red Blood Cell Count 4.97 M/uL (4.33-5.43); Red Cell Distribution Width 13.1 % (12.1-15.2)
[2023-08-14 06:40] LABS: Albumin 3.2 g/dL (3.4-5.0); Albumin/Globulin Ratio 0.7 (1.1-1.8); Anion Gap 10.1 mEq/L (5.0-15.0); Bilirubin Total 0.6 mg/dL (0.2-1.0); Globulin 4.5 g/dL (2.3-3.5); Protein, Total 7.7 g/dL (6.4-8.2)
[2023-08-14 06:43] LABS: Potassium 4.1 mEq/L (3.5-5.1)
[2023-08-14 09:26] VITALS: BMI 23.9
[2023-08-14] MEDS: CEFEPIME 1 GM in NA CHLORIDE 0.9% 100 ML IV SCH (10:30)
[2023-08-14] MEDS: NA CHLORIDE 0.9% 1,000 ML IV SCH (11:04)
--- NOTE | 2023-08-14 11:04 | P.PN ---
Date of Service: 08/14/23 Pt seen and examined. Pt is a 63 yo male with past medical history of traumatic brain injury, with paraplegia, heart failure, seizure history, care home resident, resident, indwelling PEG tube, and indwelling trach with collar who was sent from care home after accidental displacement of PEG tube. The PEG tube was replaced in the ER. A/P: Trach site cellulitis: ENT changed the the trach at bedside. Will continue cefepime. .f/u blood cx PEG tube dislodgment: It was replaced in the ER. Will resume PEG tube feeding. History of seizures: Continue home med History of traumatic brain injury: stable. DVT ppx: lovenox Code: Full code
[2023-08-14] MEDS: CEFEPIME 1 GM in NA CHLORIDE 0.9% 100 ML IV ONE (11:05)
[2023-08-14] MEDS: ENOXAPARIN 40 MG/0.4 ML SQ SCH (11:05)
[2023-08-14] MEDS: ONDANSETRON 4 MG/2 ML VIAL IV PRN (12:03)
[2023-08-14] MEDS: MORPHINE 4 MG/ML SYR IV PRN (12:03)
[2023-08-14] MEDS: VANCOMYCIN 1.25 GM in NA CHLORIDE 0.9% 250 ML IVPB SCH (17:51)
[2023-08-15] MEDS: HYDROMORPHONE HCL 1 MG/ML INJ IV ONE (00:43)
[2023-08-15 07:15] LABS: Absolute Eosinophils 0.5 K/uL (0-0.5); Absolute Lymphocytes (CBC) 1.6 K/uL (0.7-4.9); Absolute Monocytes 0.6 K/uL (0.1-1.3); Absolute Neutrophil 4.1 K/uL (1.8-8.0); Basophils % 0.4 % (0-1.3); Eosinophils % 7.3 % (0-4.4); Hematocrit 42.6 % (39.6-49.0); Hemoglobin 14.3 g/dL (13.6-17.9); Lymphocytes % 23.8 % (15.3-44.8); MCH 33.2 pg (27.0-35.0); MCHC 33.6 g/dL (32.0-36.0); MCV 98.8 fL (80-100); MPV 9.1 fL (7.6-11.3); Monocytes % 8.2 % (3.3-12.3); Neutrophils % 60.3 % (41.7-73.7); Nucleated Red Blood Cells % 0.1 % (0-0); Platelets 107 thou/uL (152-406); RBC Red Blood Cell Count 4.31 M/uL (4.33-5.43); Red Cell Distribution Width 13.3 % (12.1-15.2)
[2023-08-15 07:37] LABS: Albumin 2.4 g/dL (3.4-5.0); Albumin/Globulin Ratio 0.6 (1.1-1.8); Anion Gap 6.2 mEq/L (5.0-15.0); Bilirubin Total 0.9 mg/dL (0.2-1.0); Globulin 3.7 g/dL (2.3-3.5); Potassium 4.2 mEq/L (3.5-5.1); Protein, Total 6.1 g/dL (6.4-8.2)
[2023-08-15 10:48] VITALS: O2SAT 96
[2023-08-15 12:30] VITALS: BP 132/73; TEMP 97.5
--- NOTE | 2023-08-15 12:44 | P.DS ---
Admission Date: 08/14/23 Discharge Date: 08/15/23 Disposition: TRANSFER TO INTERMEDIATE Discharge Condition: GOOD Reason for Admission: PEG tube dislodgment Brief History of Present Illness: 63-year-old with history of traumatic brain injury, with paraplegia, heart failure, seizure history, [facility] resident, resident, indwelling PEG tube, also indwelling trach with collar sent from [facility] after accidentally displaced PEG tube. On arrival in the ED PEG tube was replaced. Patient was noted with copious secretions from the trach collar as well as erythema of the trach site. He has been admitted for further observation for cellulitis. Vital signs stable, afebrile. Chest x-ray and laboratory workup pending Hospital Course: Pt is a 63yo male with past medical history of traumatic brain injury, with paraplegia, heart failure, seizure history, indwelling PEG tube, and indwelling trach with collar who was sent from [facility] after accidental displacement of his PEG tube. On arrival in the ED, the PEG tube was replaced. Patient was noted with copious secretions from the trach collar as well as erythema of the trach site. We gave iv cefepime and consulted ENT who replaced the trach. We continued home meds for other chronic medical problems. Pt will need to continue trach care at the [facility]. Will continue levaquin 750mg po daily for 1 week. He was in NAD prior to discharge. Vital Signs/Physical Exam: Temp Pulse Resp BP Pulse Ox 97.5 F 86 20 132/73 98 08/15/23 12:00 08/15/23 12:00 08/15/23 12:00 08/15/23 12:00 08/15/23 12:00 General: Alert, In no apparent distress, Other (non-verbal) HEENT: PERRLA, Other (s/p craniectomy on thr left side of his skull) Neck: Supple, 2+ carotid pulse no bruit, JVD not distended Respiratory: Clear to auscultation bilaterally, Normal air movement Cardiovascular: No edema, Normal pulses, Regular rate/rhythm, Normal S1 S2 Capillary refill: <2 Seconds Gastrointestinal: Normal bowel sounds, Soft and benign, Non-distended Musculoskeletal: No clubbing, No swelling, Contractures (On right hand) Integumentary: No rashes, No breakdown, No significant lesion Lymphatics: No axilla or inguinal lymphadenopathy Laboratory Data at Discharge: WBC 6.90 thou/uL (4.3-10.9) 08/15/23 06:50 Hgb 14.3 g/dL (13.6-17.9) D 08/15/23 06:50 Hct 42.6 % (39.6-49.0) 08/15/23 06:50 Plt Count 107 thou/uL (152-406) L 08/15/23 06:50 Sodium 144 mEq/L (136-145) 08/15/23 06:50 Potassium 4.2 mEq/L (3.5-5.1) 08/15/23 06:50 BUN 16 mg/dL (7-18) 08/15/23 06:50 Creatinine 0.65 mg/dL (0.70-1.30) L 08/15/23 06:50 Glucose 81 mg/dL (74-106) 08/15/23 06:50 Total Bilirubin 0.9 mg/dL (0.2-1.0) 08/15/23 06:50 AST 29 U/L (15-37) 08/15/23 06:50 ALT 27 U/L (16-61) 08/15/23 06:50 Alkaline Phosphatase 95 U/L (45-117) D 08/15/23 06:50 Home Medications: Acetaminophen [Tylenol*] 650 mg [place] Q6HP PRN 08/06/22 Acetaminophen [Tylenol] 650 mg FT Q4HP PRN 08/06/22 Albuterol Sulfate [Albuterol Sulfate 0.083% Neb Soln] 2.5 mg IH Q6H 08/06/22 Gabapentin 300 mg FT TID 08/06/22 Hydrocodone 10/APAP 325 [[place] 10/325*] 1 tab FT Q8H 08/06/22 Hyoscyamine Sulfate [Levsin TAB*] 2 tab FT TID 08/06/22 Lactulose 30 ml FT DAILY 08/06/22 Loratadine [Claritin*] 10 mg FT DAILY 08/06/22 Mineral Oil/Petrolatum,White [Refresh P.m. Ointment] 0.25 inch LEFT EYE QID 08/06/22 Sennosides/Docusate Sodium [Senna Plus 8.6-50 mg Tablet] 2 each FT DAILY 08/06/22 Tizanidine HCl 4 mg FT BID 08/06/22 Valproic Acid (As Sodium Salt) [Valproic Acid] 7.5 ml FT BID 08/06/22 guaiFENesin [Chiquita-Tussin] 10 ml FT Q8H PRN 08/06/22 Buspirone HCl 5 mg FT Q8H 10/12/22 Multivit with Minerals/Lutein [Theratrum Complete 50 Plus Tab] 15 ml FT DAILY 10/12/22 Zinc Gluconate [Zinc] 50 mg FT 1700 10/12/22 Carboxymethylcellulose Sodium [Artificial Tears] 1 drop EACH EYE Q12HP PRN 12/22/22 Lactose-Reduced Food/Fiber [Isosource 1.5 Meño Tube Feed Lq] See Rx Instructions .ROUTE .COMPLEX 12/22/22 Magnesium Oxide [Mag 0X*] 400 mg FT DAILY 12/22/22 Mupirocin Oint [Bactroban 2% Ointment*] 1 appl TP DAILY 12/22/22 Sertraline 25 mg FT DAILY 12/22/22 Sertraline [Zoloft*] 100 mg FT DAILY 12/22/22 Cefaclor [Ceclor] 5 ml PO BID #100 ml 12/24/22 Jevity 1.5 Meño Liquid 1,000 ml FT CONT #1 bot 12/24/22 Metronidazole 500 mg PO BID #20 tab 12/24/22 Sertraline [Zoloft*] 100 mg FT DAILY #30 tab 12/24/22 levoFLOXacin [Levaquin] 750 mg PO DAILY 7 Days #7 tab 08/15/23 New Medications: levoFLOXacin [Levaquin] 750 mg PO DAILY 7 Days #7 tab Physician Discharge Instructions: Continue home meds. Take Levaquin 750mg po daily for 1 week. Continue trach care and suction. Follow up with PCP within 2 weeks Diet: AHA Activity: Ad alyssa Followup: OOT,OOT [Primary Care Provider] -
--- NOTE | 2023-08-15 13:39 | RAD REPORT ---
EXAM DESCRIPTION: Chest Single View CLINICAL HISTORY: COUGH COMPARISON: 10/12/2022 FINDINGS: Single frontal radiograph view of the chest. Cardiomediastinal silhouette: Atherosclerotic calcification of thoracic aorta. Heart is not enlarged. Tracheostomy. Lungs: No consolidation, pneumothorax, or pleural effusion. Bones: No acute osseous abnormality. Degenerative change of the spine and shoulders. Upper abdomen: No abnormality identified. IMPRESSION: 1. No acute pulmonary process identified. Electronically signed by: Gregg Martinez DO 08/14/2023 05:59 AM CDT 4ZDM Due to temporary technical issues with the PACS/Fluency reporting system, reports are being signed by the in house radiologists without review as a courtesy to insure prompt reporting. The interpreting radiologist is fully responsible for the content of the report.
--- NOTE | 2023-08-15 17:17 | RAD REPORT ---
EXAM DESCRIPTION: XA GUIDANCE UPPER GI TRACT CLINICAL HISTORY: Peg place;Abd pain COMPARISON: None. TECHNIQUE: XA GUIDANCE UPPER GI TRACT TUBE INJECTION 08/14/2023 4:43 AM CDT FINDINGS: Bowel gas pattern is nonspecific. There are no abnormal radiopaque foreign bodies or abnor mal calcifications. Osseous structures are grossly unremarkable. Gastrostomy is present. Contrast inj ected via gastrostomy is intraluminal. There is no contrast extravasation. IMPRESSION: No contrast extravasation. Electronically signed by: Agustín Gil MD 08/14/2023 06:16 AM CDT RP Due to temporary technical issues with the PACS/Fluency reporting system, reports are being signed by the in house radiologists without review as a courtesy to insure prompt reporting. The interpreting radiologist is fully responsible for the content of the report.
== END 2023-08-15 15:43 ==
LOC: ER 02:06 → SUATTDRO 02:06 → ERHOLD 05:55 → 2ND 07:56
PROVIDERS: ADMIT Internal Medicine; ATTEND Hospitalist
DX: K94.29 Other complications of gastrostomy (principal); J95.02 Infection of tracheostomy stoma; L03.221 Cellulitis of neck; G82.20 Paraplegia, unspecified; R56.9 Unspecified convulsions; Z87.820 Personal history of traumatic brain injury; Y92.129 Unspecified place in nursing home as the place of occurrence of the external cause
CPT/HCPCS: 87070; 85025 ×2; 36415 ×2; 87205; 80164; 80053 ×2; 71045; 49465; 96375; 96374; 99285; J7614; J2543; J7613; J7644; J1650; J1170; J2405; J7050 ×3; J7030 ×3; J0692 ×3; 87077; 87186

== ENCOUNTER 2023-11-28 10:25 | Inpatient (IN) | payer OTHER ==
[2023-11-28] MEDS ORDERED: VANCOMYCIN 1 GM/VIAL ONE (10:46)
[2023-11-28] MEDS ORDERED: IPRATROPIUM BROM 0.5MG/2.5ML ONE (10:46)
[2023-11-28] MEDS ORDERED: PIPERACIL/TAZO 3.375 GM VIAL IV ONE (10:47)
[2023-11-28] MEDS ORDERED: NA CHLORIDE 0.9% 250 ML ONE ×2 (10:47→11:05)
[2023-11-28] MEDS ORDERED: NA CHLORIDE 0.9% 100 ML ONE (10:47)
[2023-11-28] MEDS ORDERED: LEVALBUTEROL 1.25 MG/3 ML NEB ONE (10:47)
[2023-11-28] MEDS ORDERED: NA CHLORIDE 0.9% 2,000 ML ONE (11:05)
[2023-11-28] MEDS ORDERED: ONDANSETRON 4 MG/2 ML VIAL ONE (11:16)
[2023-11-28] MEDS ORDERED: ACETAMINOPHEN 650MG/RECT SUPP PR ONE (11:17)
[2023-11-28 11:53] LABS: Absolute Basophils 0.1 K/uL (0-0.5); Absolute Lymphocytes (CBC) 0.9 K/uL (0.7-4.9); Absolute Neutrophil 21.3 K/uL (1.8-8.0); Basophils % 0.2 % (0-1.3); Hematocrit 49.5 % (39.6-49.0); Hemoglobin 16.5 g/dL (13.6-17.9); Lymphocytes % 3.6 % (15.3-44.8); MCH 32.6 pg (27.0-35.0); MCHC 33.4 g/dL (32.0-36.0); MCV 97.6 fL (80-100); MPV 9.6 fL (7.6-11.3); Monocytes % 8.4 % (3.3-12.3); Neutrophils % 87.8 % (41.7-73.7); Platelets 158 thou/uL (152-406); RBC Red Blood Cell Count 5.07 M/uL (4.33-5.43); Red Cell Distribution Width 13.9 % (12.1-15.2)
[2023-11-28 11:56] LABS: PT Prothrombin Time 14.4 SECONDS (9.4-12.5); Protime INR 1.3
[2023-11-28] MEDS ORDERED: FAMOTIDINE 20 MG/2 ML VIAL IV ONE (12:06)
--- NOTE | 2023-11-28 12:10 | RAD REPORT ---
EXAMINATION: ONE VIEW CHEST XR CLINICAL INDICATION: Male, 63 years old.Cough;Fever;Dyspnea TECHNIQUE: 1 View, AP supine, X-ray of the chest was performed. [id number]. COMPARISON: 08/28/2023 FINDINGS: Lungs and pleura: Mild airspace disease in the medial lung bases bilaterally. No effusion. Heart and mediastinum: Normal heart size. Unremarkable mediastinal contours. Osseous structures: No acute abnormality. Tubes/lines: Tracheostomy Other: None. IMPRESSION: Mild increased opacities in the medial lung bases could reflect atelectasis, pneumonitis, or mild pne umonia.
[2023-11-28 12:11] LABS: Albumin 2.7 g/dL (3.4-5.0); Albumin/Globulin Ratio 0.6 (1.1-1.8); Anion Gap 13.4 mEq/L (5.0-15.0); Bilirubin Direct 0.3 mg/dL (0-0.2); Bilirubin Indirect, Calculated 0.5 mg/dL (0.2-0.8); Bilirubin Total 0.8 mg/dL (0.2-1.0); Globulin 4.6 g/dL (2.3-3.5); Magnesium 1.9 mg/dL (1.6-2.4); Potassium 4.4 mEq/L (3.5-5.1); Protein, Total 7.3 g/dL (6.4-8.2)
[2023-11-28 12:21] LABS: Band Neutrophils 8 % (0-1); Blood Morphology Comment NOT SEEN (NOT SEEN); Differential Total Cells Count 100; Lymphocytes 3 % (15-42); Monocytes 11 % (0-10); Platelet Estimate ADEQ; Segmented Neutrophils 78 % (40-80); Toxic Granulation 1+
--- NOTE | 2023-11-28 13:15 | EDPHYS ---
Physician Documentation [facility] Name: Elliot Hathaway Age: 63 yrs Sex: Male : 1960 Arrival Date: 11/28/2023 Time: 10:25 Bed 2 Private MD: ED Physician Harry Owusu HPI: 11/27 13:00 This 63 yrs old Male presents to ER via EMS with complaints of Breathing maxi Difficulty. 13:00 The patient has shortness of breath at rest. Onset: The symptoms/episode began/occurred maxi just prior to arrival, this morning, today. Duration: The symptoms are continuous, and are steadily getting worse. The patient's shortness of breath is aggravated by coughing, supine position. Associated signs and symptoms: Pertinent positives: productive cough, fever. Severity of symptoms: At their worst the symptoms were moderate in the emergency department the symptoms are unchanged. The patient has experienced similar episodes in the past, multiple times. Historical: - Allergies: 12:02 No Known Allergies; db - PMHx: 12:02 Anxiety; brain injury; chronic respiratory failure with hypoxia; DYSPHAGIA; db GASTROSTOMY; HEART FAILURE; hemiplegia; Hyperlipidemia; MRSA; Seizures; - PSHx: 12:02 gastric tube; tracheostomy; db - Immunization history:: Adult Immunizations unknown. - Infectious Disease History:: UNKNOWN. - Social history:: Smoking status: Patient denies any tobacco usage or history of. ROS: 13:02 Eyes: Negative for injury, pain, redness, and discharge, ENT: Negative for injury, maxi pain, and discharge, Neck: Negative for injury, pain, and swelling, Cardiovascular: Negative for chest pain, palpitations, and edema, Abdomen/GI: Negative for abdominal pain, nausea, vomiting, diarrhea, and constipation, Back: Negative for injury and pain, : Negative for injury, bleeding, discharge, and swelling, MS/Extremity: Negative for injury and deformity, Skin: Negative for injury, rash, and discoloration, Allergy/Immunology: Negative for hives, rash, and allergies, Endocrine: Negative for neck swelling, polydipsia, polyuria, polyphagia, and marked weight changes, Hematologic/Lymphatic: Negative for swollen nodes, abnormal bleeding, and unusual bruising, 13:02 Constitutional: Positive for body aches, chills, fever, malaise, 13:02 Cardiovascular: Positive for palpitations, 13:02 Respiratory: Positive for cough, shortness of breath, wheezing, expiratory, 13:02 Abdomen/GI: Positive for g tube, Exam: 13:02 Head/Face: Normocephalic, atraumatic. Eyes: Pupils equal round and reactive to light, maxi extra-ocular motions intact. Lids and lashes normal. Conjunctiva and sclera are non-icteric and not injected. Cornea within normal limits. Periorbital areas with no swelling, redness, or edema. ENT: Nares patent. No nasal discharge, no septal abnormalities noted. Tympanic membranes are normal and external auditory canals are clear. Oropharynx with no redness, swelling, or masses, exudates, or evidence of obstruction, uvula midline. Mucous membranes moist. Chest/axilla: Normal chest wall appearance and motion. Nontender with no deformity. No lesions are appreciated. Abdomen/GI: Soft, non-tender, with normal bowel sounds. No distension or tympany. No guarding or rebound. No evidence of tenderness throughout. Back: No spinal tenderness. No costovertebral tenderness. Full range of motion. Skin: Warm, dry with normal turgor. Normal color with no rashes, no lesions, and no evidence of cellulitis. MS/ Extremity: Pulses equal, no cyanosis. Neurovascular intact. Full, normal range of motion. Neuro: Awake and alert, GCS 15, oriented to person, place, time, and situation. Cranial nerves II-XII grossly intact. Motor strength 5/5 in all extremities. Sensory grossly intact. Cerebellar exam normal. Normal gait. Psych: Awake, alert, with orientation to person, place and time. Behavior, mood, and affect are within normal limits. 13:02 Constitutional: The patient appears febrile, 13:02 Cardiovascular: Rate: tachycardic, Rhythm: regular, Pulses: Pulses are 4+ in bilateral radial, brachial, femoral, popliteal, posterior tibial and and dorsalis pedis arteries.. Heart sounds: normal, normal S1and S2, no S3 or S4, no murmur, no rub, no gallop, Edema: is not appreciated, JVD: is not appreciated, 13:02 ECG was reviewed by the Attending Physician. 13:02 Neuro: non verbal, Vital Signs: 10:26 BP 119 / 87; Pulse 120; Resp 32; Temp 100.1(A); Pulse Ox 92% 3 lpm ; rs5 10:45 BP 128 / 83; Pulse 132; Resp 50; Pulse Ox 96% 4 lpm ; Weight 76 kg; db 11:30 BP 126 / 92; Pulse 136; Resp 68; Pulse Ox 94% on Simple Mask; db 11:45 BP 124 / 82; Pulse 125; Resp 55; Pulse Ox 99% on 8 lpm Simple Mask; db 12:00 BP 124 / 82; Pulse 125; Resp 62; Pulse Ox 98% on Simple Mask; db 12:45 BP 114 / 76; Pulse 120; Resp 68; Temp 101.4(R); Pulse Ox 97% on Simple Mask; db 13:15 BP 101 / 78; Pulse 109; Resp 56; Pulse Ox 98% on Simple Mask; db 13:30 BP 101 / 78; Pulse 109; Resp 52; Pulse Ox 98% on Simple Mask; db 13:45 BP 117 / 72; Pulse 107; Resp 36; Pulse Ox 98% ; db 14:00 BP 100 / 77; Pulse 108; Resp 38; Temp 100.1; Pulse Ox 96% on Simple Mask; db 15:00 BP 98 / 75; Pulse 102; Resp 48; Pulse Ox 97% on Simple Mask; db 15:30 BP 97 / 86; Pulse 102; Resp 34; Pulse Ox 95% on Simple Mask; db 16:00 BP 98 / 71; Pulse 97; Resp 44; Pulse Ox 97% ; db 16:15 BP 107 / 72; Pulse 95; Resp 42; Pulse Ox 94% on Simple Mask; db 10:45 TRACH COLAR O2 db Procedures: 13:02 Central Line: the site was prepped with Betadine, in sterile fashion, a triple lumen maxi catheter was inserted, in the right femoral vein, in 1 attempts. placement was verified, by blood return, the site was dressed with using sterile technique, the patient tolerated the procedure, well. MDM: 10:32 Medical Screening Exam initiated maxi 13:08 Differential diagnosis: Bronchitis CHF exacerbation, Chronic Obstructive Pulmonary maxi Disease obstructed airway, tracheal injury, bronchitis, flu, URI, viral Infection, bacterial infection, bronchitis, pneumonia UTI, pneumonia, Pneumothorax pulmonary edema, Pulmonary Embolism reactive airway disease, Sepsis Unstable Angina. Antibiotic administration: zosyn / vanco. Differential Diagnosis altered mental status, sepsis, flu. Immunization status: Influenza vaccine: within last 5 years. Data reviewed: vital signs, nurses notes, lab test result(s), EKG, radiologic studies, CT scan, plain films. Consideration of Admission/Observation Patient was admitted/placed on observation. Escalation of care including admission/observation considered. I considered the following discharge prescriptions or medication management in the emergency department Medications were administered in the Emergency Department. See MAR. Independent interpretation of the following test(s) in the Emergency Department EKG: See my EKG interpretation above. Historians other than the Patient: EMS: ems well informed. Care significantly affected by the following chronic conditions: bed ridden , brain injury, trach. 11/27 10:39 Order name: Basic Metabolic Panel; Complete Time: 12:56 [facility] 11/27 10:39 Order name: CBC with Diff; Complete Time: 12:56 [facility] 11/27 10:39 Order name: LFT's; Complete Time: 12:56 [facility] 11/27 10:39 Order name: Magnesium; Complete Time: 12:56 [facility] 11/27 10:39 Order name: NT PRO-BNP; Complete Time: 12:56 [facility] 11/27 10:39 Order name: PT-INR; Complete Time: 12:56 [facility] 11/27 10:39 Order name: Troponin HS; Complete Time: 12:56 [facility] 11/27 10:39 Order name: Blood Culture Adult (2) [facility] 11/27 10:39 Order name: Lactate w/ 2H reflex if indic.; Complete Time: 12:56 [facility] 11/27 10:39 Order name: Urinalysis w/ reflexes; Complete Time: 14:58 [facility] 11/27 10:39 Order name: Lipase; Complete Time: 12:56 [facility] 11/27 12:21 Order name: Manual Differential; Complete Time: 12:56 [facility] 11/27 14:42 Order name: Ghost Lactate-NO COLLECT Timer; Complete Time: 14:58 EDMS 11/27 15:54 Order name: Vancomycin Level Trough EDMS 11/27 15:54 Order name: CBC with Automated Diff EDMS 11/27 15:54 Order name: CBC with Automated Diff EDMS 11/27 15:54 Order name: CBC with Automated Diff EDMS 11/27 15:54 Order name: CBC with Automated Diff EDMS 11/27 15:54 Order name: CBC with Automated Diff EDMS 11/27 15:54 Order name: CBC with Automated Diff EDMS 11/27 15:54 Order name: CBC with Automated Diff EDMS 11/27 15:54 Order name: CBC with Automated Diff EDMS 11/27 15:54 Order name: Comprehensive Metabolic Panel EDMS 11/27 15:54 Order name: Comprehensive Metabolic Panel EDMS 11/27 15:54 Order name: Comprehensive Metabolic Panel EDMS 11/27 15:54 Order name: Comprehensive Metabolic Panel EDMS 11/27 15:54 Order name: Comprehensive Metabolic Panel EDMS 11/27 15:54 Order name: Comprehensive Metabolic Panel EDMS 11/27 15:54 Order name: Comprehensive Metabolic Panel EDMS 11/27 15:54 Order name: Comprehensive Metabolic Panel EDMS 11/27 15:54 Order name: Magnesium EDMS 11/27 15:54 Order name: Magnesium EDMS 11/27 15:54 Order name: Magnesium EDMS 11/27 15:54 Order name: Magnesium EDMS 11/27 15:54 Order name: Magnesium EDMS 11/27 15:54 Order name: Magnesium EDMS 11/27 15:54 Order name: Magnesium EDMS 11/27 15:54 Order name: Magnesium EDMS 11/27 15:54 Order name: Phosphorus EDMS 11/27 15:54 Order name: Phosphorus EDMS 11/27 15:54 Order name: Phosphorus EDMS 11/27 15:54 Order name: Phosphorus EDMS 11/27 15:54 Order name: Phosphorus EDMS 11/27 15:54 Order name: Phosphorus EDMS 11/27 15:54 Order name: Phosphorus EDMS 11/27 15:54 Order name: Phosphorus EDMS 11/27 10:39 Order name: XRAY Chest (1 view); Complete Time: 12:56 [facility] 11/27 14:10 Order name: CT Chest Wo Con; Complete Time: 15:39 11/27 10:39 Order name: EKG; Complete Time: 10:40 [facility] 11/27 15:54 Order name: CONS Physician Consult EDMS 11/27 10:39 Order name: Cardiac monitoring; Complete Time: 12:04 [facility] 11/27 10:39 Order name: EKG - Nurse/Tech; Complete Time: 12:04 [facility] 11/27 10:39 Order name: IV Saline Lock; Complete Time: 12:04 [facility] 11/27 10:39 Order name: Labs collected and sent; Complete Time: 12:04 [facility] 11/27 10:39 Order name: O2 Per Protocol; Complete Time: 12:04 [facility] 11/27 10:39 Order name: O2 Sat Monitoring; Complete Time: 12:04 [facility] 11/27 12:56 Order name: NG Tube: to peg; Complete Time: 13:08 [facility] EC:02 Rate is 128 beats/min. Rhythm is regular. QRS [place] is Normal. QRS interval is normal. maxi QT interval is normal. No Q waves. T waves are Normal. No ST changes noted. Clinical impression: Sinus tachycardia. Interpreted by me. Administered Medications: 11:18 Drug: NS 0.9% IV (30 ml/kg) 30 ml/kg IV at bolus once; Sepsis Protocol; to be given as db a bolus over 90 minutes Route: IV; Rate: bolus; Site: right hand; 13:00 Follow up: Response: No adverse reaction; IV Status: Completed infusion; IV Intake: db 2280ml 11:18 Drug: Levalbuterol Inhalation 2.5 mg Inhalation once Route: Inhalation; db 16:46 Follow up: Response: No adverse reaction db 11:18 Drug: Ipratropium Inhalation Aerosol 0.5 mg Inhalation once Route: Inhalation; db 16:46 Follow up: Response: No adverse reaction db 11:18 Drug: Ondansetron IVP 4 mg IVP once; over 2 minutes Route: IVP; Site: right hand; db 16:46 Follow up: Response: No adverse reaction db 11:55 Drug: Piperacillin-Tazobactam IVPB 3.375 grams IVPB once over 60 mins; (mix in NS 100 db mL) Route: IVPB; Infused Over: 60 mins; Site: right hand; 16:45 Follow up: Response: No adverse reaction; IV Status: Completed infusion; IV Intake: db 100ml 12:04 Not Given (Duplicate Order): [id number] mg PO once db 12:06 Drug: Famotidine IVP 20 mg IVP once; dilute with 10 mL 0.9% NaCl; give over 2 minutes db Route: IVP; Site: right hand; 16:46 Follow up: Response: No adverse reaction db 12:45 Drug: vancoMYCIN IVPB 1 grams IVPB once over 2 hrs {Note: CENTRAL [id number].} Route: db IVPB; Infused Over: 2 hrs; Site: Other; 14:50 Follow up: Response: No adverse reaction; IV Status: Completed infusion; IV Intake: db 250ml 12:45 Drug: Acetaminophen ME Suppository 650 mg ME once Route: ME; db 16:44 Follow up: Response: No adverse reaction db Disposition: 13:09 Critical Care:. maxi Disposition Summary: 11/28/23 13:14 Hospitalization Ordered Notes: Hospitalization Status: Inpatient Admission maxi Provider: Angelica Franks cha Location: Intensive Care Unit maxi Condition: Serious maxi Problem: new maxi Symptoms: have improved maxi Bed/Room Type: Standard maxi Room Assignment: 2-(11/28/23 16:11) ll1 Diagnosis - Fever, unspecified maxi - Pneumonia due to other specified bacteria - aspiration maxi - Elevated white blood cell count maxi - Bandemia maxi - Tracheostomy status maxi - Vomiting maxi - Severe sepsis without septic shock maxi Forms: - Medication Reconciliation Form maxi - SBAR form maxi - Leadership Thank You Letter maxi Critical care time excluding procedures: 13:09 Critical care time: Bedside Care: 35 minutes, Consultation: 10 minutes, Family maxi Intervention: 10 minutes. Total time: 55 minutes Signatures: Dispatcher [employer] EDMS Harry Owusu MD MD cha Lewis, Lynsay RN RN ll1 Matilde Lei RN RN db Shelley Robison, SHILA WIND PROJECT MANAGER [facility] Corrections: (The following items were deleted from the chart) 10:40 10:40 BASIC METABOLIC PANEL+C.LAB.BRZ ordered. EDMS EDMS 10:40 10:40 CBC+H.LAB.BRZ ordered. EDMS EDMS 10:40 10:40 HEPATIC FUNCTION+C.LAB.BRZ ordered. EDMS EDMS 10:40 10:40 MAGNESIUM+C.LAB.BRZ ordered. EDMS EDMS 10:40 10:40 PROBNP+C.LAB.BRZ ordered. EDMS EDMS 10:40 10:40 PROTIME (+INR)+COAG.LAB.BRZ ordered. EDMS EDMS 10:40 10:40 Troponin High Sensitivity+C.LAB.BRZ ordered. EDMS EDMS 10:40 10:40 BLOOD CULTURE*+BA.LAB.BRZ ordered. EDMS EDMS 10:40 10:40 LACTATE+C.LAB.BRZ ordered. EDMS EDMS 10:40 10:40 Urinalysis+U.LAB.BRZ ordered. EDMS EDMS 10:40 10:40 LIPASE+DYANZ ordered. EDMS EDMS 16:11 13:14 [facility] ll1
--- NOTE | 2023-11-28 13:15 | ER ---
Nurse's Notes [facility] Name: Elliot Hathaway Age: 63 yrs Sex: Male : 1960 Arrival Date: 11/28/2023 Time: 10:25 Bed 2 Private MD: Diagnosis: Fever, unspecified;Pneumonia due to other specified bacteria-aspiration;Elevated white blood cell count;Bandemia;Tracheostomy status;Vomiting;Severe sepsis without septic shock Presentation: 11/27 10:26 Chief complaint: EMS states: [facility] toned out EMS for rs5 difficulty breathing. Coronavirus screen: At this time, the client does not indicate any symptoms associated with coronavirus-19. Ebola Screen: No symptoms or risks identified at this time. Initial Sepsis Screen: Does the patient meet any 2 criteria? RR > 20 per min. Temp <36.0*C (96.8*F)) or > 38.3*C (100.9*F). HR > 90 bpm. Yes Does the patient have a suspected source of infection? No. Patient's initial sepsis screen is negative. Risk Assessment: Do you want to hurt yourself or someone else? Patient reports no desire to harm self or others. Onset of symptoms was November 28, 2023. 10:26 Method Of Arrival: EMS: [facility] rs5 10:26 Acuity: KRISTINE 3 rs5 Triage Assessment: 16:44 General: Behavior is cooperative. db Historical: - Allergies: 12:02 No Known Allergies; db - PMHx: 12:02 Anxiety; brain injury; chronic respiratory failure with hypoxia; DYSPHAGIA; db GASTROSTOMY; HEART FAILURE; hemiplegia; Hyperlipidemia; MRSA; Seizures; - PSHx: 12:02 gastric tube; tracheostomy; db - Immunization history:: Adult Immunizations unknown. - Infectious Disease History:: UNKNOWN. - Social history:: Smoking status: Patient denies any tobacco usage or history of. Screenin:03 [facility] ED Fall Risk Assessment (Adult) History of falling in the last 3 months, db including since admission No falls in past 3 months (0 pts) Confusion or Disorientation Yes (5 pts) Intoxicated or Sedated No (0 pts) Impaired Gait No (0 pts) Mobility Assist Device Used No (0 pt) Altered Elimination Yes (1 pt) Score/Fall Risk Level 3 or more points = High Risk Oriented to surroundings, Maintained a safe environment. 16:34 Abuse screen: Denies threats or abuse. Denies injuries from another. Nutritional db screening: No deficits noted. Tuberculosis screening: No symptoms or risk factors identified. Assessment: 10:50 Reassessment: RESPIRATORY THERAPIST AT PATIENT BEDSIDE FOR ASSISTANCE WITH SUCTION, db TRACH AND BREATHING TREATMENT. 10:59 Reassessment: UNABLE TO OBTAIN BLOOD IN IV LINE. CONTACT CHARGE NURSE FOR ASSISTANCE IN db ANOTHER LINE AND LAB WORK. 10:59 Reassessment: CALLED PHLEBOTOMY FOR LAB COLLECTION. db 11:15 Reassessment: PHLEBOTOMY IS AT PATIENT BEDSIDE FOR LAB DRAW. General: Appears db distressed, uncomfortable. 11:18 Reassessment: PT VOMITING. SUCTIONED. DR. SHELL NOTIFIED. ZOFRAN 4MG GIVEN. db 12:01 Reassessment: DR. SHELL AT PATIENT BEDSIDE FOR CENTRAL LINE. PT TRACH SUCTIONED. PT db CONNECTED TO INTERMITTENT SUCTION TO G-TUBE. 12:15 Reassessment: DR. SHELL AT PATIENT BEDSIDE FOR CENTRAL LINE. db 12:35 Reassessment: PATIENT VOMITING YELLOW VOMIT. CLEANED AND CHANGED. db 12:50 Reassessment: PATIENT CHANGED. NOTED DIARRHEA. INCONTINENT OF STOOL. db 13:45 Reassessment: RT AT PATIENT BEDSIDE FOR DEEP SUCTION. db 14:05 Reassessment: FAMILY AT BEDSIDE. db 15:02 Reassessment: PATIENT DEEP SUCTIONED BY THIS RN. CLEAR MUCOUS SUCTIONED FROM TRACH, db FAMILY AT BEDSIDE. 16:35 Reassessment: REPORT GIVEN TO LO IN ICU. db 16:42 Reassessment: Patient appears in no apparent distress at this time. Patient and/or db family updated on plan of care and expected duration. Pain level reassessed. FAMILY AT BEDSIDE. PT TRANSPORTED TO [facility]. Neuro: Level of Consciousness is awake, alert, Oriented to none. Respiratory: Airway is patent Respiratory effort is even, unlabored, Respiratory pattern is regular, symmetrical, NOTED INDWELLING TRACH. 16:43 Pain: Unable to use pain scale. db Vital Signs: 10:26 BP 119 / 87; Pulse 120; Resp 32; Temp 100.1(A); Pulse Ox 92% 3 lpm ; rs5 10:45 BP 128 / 83; Pulse 132; Resp 50; Pulse Ox 96% 4 lpm ; Weight 76 kg; db 11:30 BP 126 / 92; Pulse 136; Resp 68; Pulse Ox 94% on Simple Mask; db 11:45 BP 124 / 82; Pulse 125; Resp 55; Pulse Ox 99% on 8 lpm Simple Mask; db 12:00 BP 124 / 82; Pulse 125; Resp 62; Pulse Ox 98% on Simple Mask; db 12:45 BP 114 / 76; Pulse 120; Resp 68; Temp 101.4(R); Pulse Ox 97% on Simple Mask; db 13:15 BP 101 / 78; Pulse 109; Resp 56; Pulse Ox 98% on Simple Mask; db 13:30 BP 101 / 78; Pulse 109; Resp 52; Pulse Ox 98% on Simple Mask; db 13:45 BP 117 / 72; Pulse 107; Resp 36; Pulse Ox 98% ; db 14:00 BP 100 / 77; Pulse 108; Resp 38; Temp 100.1; Pulse Ox 96% on Simple Mask; db 15:00 BP 98 / 75; Pulse 102; Resp 48; Pulse Ox 97% on Simple Mask; db 15:30 BP 97 / 86; Pulse 102; Resp 34; Pulse Ox 95% on Simple Mask; db 16:00 BP 98 / 71; Pulse 97; Resp 44; Pulse Ox 97% ; db 16:15 BP 107 / 72; Pulse 95; Resp 42; Pulse Ox 94% on Simple Mask; db 10:45 TRACH COLAR O2 db ED Course: 10:26 Patient arrived in ED. rs5 10:28 Triage completed. rs5 10:29 Jimmy Davidson, EMA is Primary Nurse. rs5 10:32 Harry Shell MD is Attending Physician. maxi 10:59 Inserted saline lock: 22 gauge in right hand, using aseptic technique. Flushed with 10 db mL NS. 12:02 XRAY Chest (1 view) In Process Unspecified. EDMS 12:40 Accessed CENTRAL LINE Good blood return. Flushes easily. db 12:45 Notified ED physician of a critical lab result(s). lactate 2.7. ll1 13:08 Velazquez cath inserted, using sterile technique, 16 Fr., by form building supervisor, balloon inflated, db urine specimen collected. returned carolyn urine. Patient tolerated well. 13:13 Angelica Franks MD is Hospitalizing Provider. maxi 14:04 Patient has correct armband on for positive identification. Bed in low position. Call db light in reach. Side rails up X2. Client placed on continuous cardiac and pulse oximetry monitoring. NIBP monitoring applied. teletypesetter monitor on. Pulse ox on. NIBP on. Pillow given. 14:[address] via stretcher. db 14:34 CT Chest Wo Con In Process Unspecified. EDMS 16:34 Arm band placed on Patient placed in an exam room. db 16:43 No provider procedures requiring assistance completed. Patient admitted, IV remains in db place. 16:43 Provided Education on: ADMISSION. db Administered Medications: 11:18 Drug: NS 0.9% IV (30 ml/kg) 30 ml/kg IV at bolus once; Sepsis Protocol; to be given as db a bolus over 90 minutes Route: IV; Rate: bolus; Site: right hand; 13:00 Follow up: Response: No adverse reaction; IV Status: Completed infusion; IV Intake: db 2280ml 11:18 Drug: Levalbuterol Inhalation 2.5 mg Inhalation once Route: Inhalation; db 16:46 Follow up: Response: No adverse reaction db 11:18 Drug: Ipratropium Inhalation Aerosol 0.5 mg Inhalation once Route: Inhalation; db 16:46 Follow up: Response: No adverse reaction db 11:18 Drug: Ondansetron IVP 4 mg IVP once; over 2 minutes Route: IVP; Site: right hand; db 16:46 Follow up: Response: No adverse reaction db 11:55 Drug: Piperacillin-Tazobactam IVPB 3.375 grams IVPB once over 60 mins; (mix in NS 100 db mL) Route: IVPB; Infused Over: 60 mins; Site: right hand; 16:45 Follow up: Response: No adverse reaction; IV Status: Completed infusion; IV Intake: db 100ml 12:04 Not Given (Duplicate Order): [id number] mg PO once db 12:06 Drug: Famotidine IVP 20 mg IVP once; dilute with 10 mL 0.9% NaCl; give over 2 minutes db Route: IVP; Site: right hand; 16:46 Follow up: Response: No adverse reaction db 12:45 Drug: vancoMYCIN IVPB 1 grams IVPB once over 2 hrs {Note: CENTRAL [id number].} Route: db IVPB; Infused Over: 2 hrs; Site: Other; 14:50 Follow up: Response: No adverse reaction; IV Status: Completed infusion; IV Intake: db 250ml 12:45 Drug: Acetaminophen CO Suppository 650 mg CO once Route: CO; db 16:44 Follow up: Response: No adverse reaction db Medication: 16:34 VIS not applicable for this client. db Intake: 13:00 IV: 2280ml; Total: 2280ml. db 14:50 IV: 250ml; Total: 2530ml. db 16:45 IV: 100ml; Total: 2630ml. db Outcome: 13:14 Decision to Hospitalize by Provider. maxi 16:43 Admitted to Med/surg accompanied by nurse, accompanied by tech, via stretcher, room ICU db 2, with oxygen, on monitor, with chart, Report called to REFRIGERATOR ROOM CLERK 16:43 Condition: stable 16:43 Instructed on the need for admit, 16:48 Patient left the ED. db Signatures: Dispatcher [employer] EDMS Harry Shell MD MD cha Lewis, Lynsay, RN RN ll1 Matilde Lei, RN RN db Jimmy Davidson RN RN rs5 Corrections: (The following items were deleted from the chart) 12:46 12:45 Notified ED physician of a critical lab result(s). lactate 2.4 ll1 ll1
[2023-11-28 13:16] LABS: Specific Gravity > 1.030 (1.005-1.030); Sqamous Epithelial <5 /HPF (None Seen); Urine Bacteria None Seen /HPF (<20); Urine Bilirubin NEGATIVE (Negative); Urine Blood Negative (Negative); Urine Clarity Clear (Clear); Urine Color Yellow (Yellow); Urine Culture Reflex Order NOT NEEDED; Urine Glucose NEGATIVE (Negative); Urine Ketones TRACE (Negative); Urine Microscopic Reflex YN ORDER UMIC; Urine Mucus Slight /HPF (None Seen); Urine Nitrite NEGATIVE (Negative); Urine Protein TRACE (Negative); Urine RBC <5 /HPF (None Seen); Urine Urobilinogen Normal (Normal); Urine WBC <5 /HPF (<5); Urine pH 6.5 (5.0-7.0)
--- NOTE | 2023-11-28 13:43 | P.HP ---
Certification for Inpatient Patient admitted to: Inpatient With expected LOS: >2 Midnights Patient will require the following post-hospital care: None Practitioner: I am a practitioner with admitting privileges, knowledge of patient current condition, hospital course, and medical plan of care. Services: Services provided to patient in accordance with Admission requirements found in Title 42 Section 412.3 of the Code of Federal Regulations <Shelley Robison - Last Filed: 11/28/23 17:24> Patient History Date of Service: 11/28/23 Reason for admission: Acute hypoxic respiratory failure History of Present Illness: Elliot Hathaway is a 63-year-old male with past medical history of hemiplegia, tracheostomy, gastrostomy, dysphagia, chronic respiratory failure, brain injury, anxiety, seizures, MRSA, who presents to the ED with shortness of breath. Elliot is a resident at [place] and was brought to the ED via the EMS for hypoxia. On evaluation, Elliot has a trach collar in place with 10 liters Facemask with satisfactory oxygenation. PEG tube and jimenez also in place. Lung sounds with rhonchi/gurgles. CT chest and Chest xray showing pneumonia to bilateral lower lobes. Initial vitals BP 119 / 87; Pulse 120; Resp 32; Temp 100.1 Laboratory evaluation with WBC 24.3, lactic acid 2.7, H&H 16.5/49 point CTA chest reports "Mild nodularity, predominantly in the lower lobes, which may reflect pneumonia or pneumonitis." Chest x-ray report "Mild increased opacities in the medial lung bases could reflect atelectasis, pneumonitis, or mild pneumonia." Elliot will be admitted to hospitalist service for further treatment of severe sepsis and hypoxic respiratory failure 2/[address] Billings consulted. - Past Medical/Surgical History Diabetic: No -: Other specified degenerative diseases of nervous system -: Chronic Respiratory Failure with hypoxia -: Dysphagia -: Gastrostomy -: Heart Failure, unspecified -: Hemiplegia -: Hyperlipidemia -: MRSA -: Seizures -: Anxiety -: depression -: conjuctivitis -: PEG -: neurosurgery with craniectomy Psychosocial/ Personal History: unable to obtain, lives in [place] - Social History Smoking Status: Unknown if ever smoked Alcohol use: No CD- Drugs: No Caffeine use: No <Shelley Robison - Last Filed: 11/28/23 17:24> Date of Service: 11/29/23 <yassine sharif - Last Filed: 11/29/23 19:08> Allergies No Known Allergies Allergy (Unverified 05/24/22 13:26) Home Medications: Hydrocodone 10/APAP 325 [[place] 10/325*] 1 tab FT Q8H 08/06/22 Hyoscyamine Sulfate [Levsin TAB*] 2 tab FT TID 08/06/22 Lactulose 30 ml FT DAILY PRN 08/06/22 Mineral Oil/Petrolatum,White [Refresh P.m. Ointment] 0.25 inch LEFT EYE QID 08/06/22 Sennosides/Docusate Sodium [Senna Plus 8.6-50 mg Tablet] 2 each FT DAILY 08/06/22 Tizanidine HCl 4 mg FT BID 08/06/22 Valproic Acid (As Sodium Salt) [Valproic Acid] 7.5 ml FT BID 08/06/22 Multivit with Minerals/Lutein [Theratrum Complete 50 Plus Tab] 15 ml FT DAILY 10/12/22 Zinc Gluconate [Zinc] 50 mg FT 1700 10/12/22 Magnesium Oxide [Mag 0X*] 400 mg FT DAILY 12/22/22 Sertraline [Zoloft*] 100 mg FT DAILY 12/22/22 Sertraline [Zoloft*] 100 mg FT DAILY #30 tab 12/24/22 Acetaminophen 2 tab FT Q4H PRN 11/28/23 Acetaminophen [Tylenol*] 650 mg DC Q6H PRN 11/28/23 Albuterol Neb [Proventil 0.083% Neb Soln] 3 ml IH Q6H PRN 11/28/23 Dextran 70/Hypromellose [Artificial Tears Drops] 1 drop EACH EYE Q12H PRN 11/28/23 Gabapentin 300 mg PO TID 11/28/23 Guaifenesin [Liquituss GG] 10 ml FT Q8H 11/28/23 Loratadine [Claritin] 1 tab FT DAILY 11/28/23 Review of Systems is unable to be obtained <Shelley Robison - Last Filed: 11/28/23 17:24> Physical Examination - Physical Exam General: Unresponsive HEENT: Other (left skull absence), Abnormal EOM Neck: Supple Respiratory: Rhonchi/gurgles Cardiovascular: No edema, Normal S1 S2 Gastrointestinal: Hypoactive, Soft and benign, Other (PEG tube present) Musculoskeletal: Other (hemiplegia) Integumentary: No rashes Neurological: Other (Hemiplegia) Urinary: Jimenez catheter - Studies Laboratory Data (last 24 hrs) 11/28/23 11/28/23 11/28/23 11:30 11:30 11:30 WBC 24.30 H Hgb 16.5 Hct 49.5 H Plt Count 158 PT 14.4 H INR 1.30 Sodium 141 Potassium 4.4 BUN 24 H Creatinine 1.04 Glucose 134 H Magnesium 1.9 Total Bilirubin 0.8 AST 30 ALT 26 Alkaline Phosphatase 111 Lipase 26 <Shelley Robison - Last Filed: 11/28/23 17:24> - Studies Microbiology Data (last 24 hrs): 11/28/23 11:30 Blood - Blood Anaerobic Blood Culture - Final 11/28/23 11:15 Blood - Blood Anaerobic Blood Culture - Final <yassine sharif - Last Filed: 11/29/23 19:08> Assessment and Plan - Plan Assessment and plan Acute on chronic hypoxic respiratory failure secondary to bilateral lower lobe pneumonia Severe sepsis secondary to pneumonia Trach collar History of MRSA -Sepsis criteria WBC 24.3, lactic acid 2.7, heart rate 120, respirations 32, temperature 100.4 rectal, pneumonia -CT chest reports "Mild nodularity, predominantly in the lower lobes, which may reflect pneumonia or pneumonitis" -Chest xray reports "Mild increased opacities in the medial lung bases could reflect atelectasis, pneumonitis, or mild pneumonia." -Zosyn/vancomycin given in the ED -Unasyn and vancomycin on floor -Tylenol suppository -Pain control - lasix x 1 -Sputum culture, blood cultures -Trach care, oxygen protocol, respiratory consulted -Dr. Billings consulted Dysphagia Gastrostomy -NPO -PEG tube to LIWS History of seizures Brain injury Hemiplasia CHF -Supportive care, seizure protocol, aspiration precautions -Continue home medication -Valproic acid level pending -BNP 1566 DVT PPx Lovenox Full code LOS 2 to 3 days Discharge Plan: Senior Living Plan to discharge in: 72 Hours - Advance Directives Does patient have a Living Will: No Does patient have a Durable POA for Healthcare: No <Shelley Robison - Last Filed: 11/28/23 17:24> - Plan Patient seen and examined, plan of care discussed with Ms. Robison. Patient with borderline low blood pressure. According to report, patient vomited, and gastric content was coming out of his PEG tube while unclamped. Patient tolerating oxygen by trach-collar. Increased tracheal secretions. Chest CT shows some nodularity in the lower bases of the lungs. UA shows no evidence of UTI. Patient diagnosed with severe sepsis Aspiration pneumonia suspected. Aggressive IV antibiotics. Obtain CT abdomen and pelvis to rule out bowel obstruction. Keep n.p.o. for now PEG tube hooked to suction Resume antiseizure medications. <yassine sharif - Last Filed: 11/29/23 19:08>
--- NOTE | 2023-11-28 15:03 | RAD REPORT ---
EXAMINATION: CT CHEST WITHOUT CONTRAST CLINICAL INDICATION: Male, 63 years old. hospitalist wants to confirm pneumonia TECHNIQUE: Routine CT scan of the chest without intravenous contrast. One or more of the following do se reduction techniques were used: Automated exposure control, adjustment of the mA and/or kV according to patient size, and/or iterative reconstruction. Unless otherwise specified, incidental fi ndings do not require dedicated imaging follow-up. [id number]. COMPARISON: 10/12/2022 FINDINGS: LOWER NECK: Visualized thyroid gland and soft tissues are normal. LUNGS AND AIRWAYS: Mild nodularity in the lung bases bilaterally. There are other scattered areas of nodular and groundglass opacities. Tracheostomy. PLEURA: No pleural effusion. No pneumothorax. Hemidiaphragms are normally positioned. MEDIASTINUM AND LYMPH NODES: No mediastinal mass or fluid collection. Normal size mediastinal, hilar, and axillary lymph nodes. THORACIC AORTA: Normal caliber and configuration. PULMONARY ARTERIES: Normal caliber. HEART: Normal heart size. Coronary artery calcificationsNo pericardial effusion. OSSEOUS STRUCTURES AND CHEST WALL: Mild sternal deformity likely related to a remote sternal fracture . Multilevel degenerative changes are present in the spine. UPPER ABDOMEN: No significant abnormalities. IMPRESSION: Mild nodularity, predominantly in the lower lobes, which may reflect pneumonia or pneumonitis.
[2023-11-28] MEDS ORDERED: ACETAMINOPHEN 650MG/RECT SUPP PR PRN (15:42)
[2023-11-28] MEDS: Levofloxacin 750mg IV 750 MG/150 ML BAG IV SCH (17:16)
[2023-11-28] MEDS: D5 0.45 NS 1,000 ML IV SCH ×2 (17:17→17:55)
[2023-11-28] MEDS: FUROSEMIDE 40 MG/4 ML VIAL IV ONE (17:47)
[2023-11-28 18:34] VITALS: BMI 27.1
[2023-11-28] MEDS ORDERED: HYDROCODONE/APAP 10/325 TAB PO PRN (19:54)
[2023-11-28] MEDS: MORPHINE 2 MG/ML SYR IV PRN (20:07)
[2023-11-28] MEDS: VALPROIC ACID 250 MG/5 ML OSYR FT SCH (21:12)
[2023-11-28] MEDS: VANCOMYCIN 1 GM in NA CHLORIDE 0.9% 250 ML IVPB SCH (21:13)
[2023-11-29 06:03] LABS: Absolute Lymphocytes (CBC) 0.8 K/uL (0.7-4.9); Absolute Monocytes 1.1 K/uL (0.1-1.3); Absolute Neutrophil 12.9 K/uL (1.8-8.0); Basophils % 0.1 % (0-1.3); Eosinophils % 0.2 % (0-4.4); Hematocrit 38.5 % (39.6-49.0); Hemoglobin 13.3 g/dL (13.6-17.9); Lymphocytes % 5.5 % (15.3-44.8); MCH 33.1 pg (27.0-35.0); MCHC 34.5 g/dL (32.0-36.0); Monocytes % 7.6 % (3.3-12.3); Neutrophils % 86.6 % (41.7-73.7); Nucleated Red Blood Cells % 0.1 % (0-0); Platelets 108 thou/uL (152-406); RBC Red Blood Cell Count 4.01 M/uL (4.33-5.43); Red Cell Distribution Width 13.8 % (12.1-15.2)
[2023-11-29 06:16] LABS: Albumin 2.1 g/dL (3.4-5.0); Albumin/Globulin Ratio 0.6 (1.1-1.8); Anion Gap 6.9 mEq/L (5.0-15.0); Bilirubin Total 0.7 mg/dL (0.2-1.0); Globulin 3.7 g/dL (2.3-3.5); Magnesium 1.8 mg/dL (1.6-2.4); Phosphorus 1.6 mg/dL (2.5-4.9); Potassium 3.9 mEq/L (3.5-5.1); Protein, Total 5.8 g/dL (6.4-8.2)
[2023-11-29] MEDS: ENOXAPARIN 40 MG/0.4 ML SQ SCH (08:17)
[2023-11-29] MEDS: MAGNESIUM SULFATE 1 gm IVPB 1 GM/100 ML BAG IV ONE (08:17)
[2023-11-29] MEDS: POTASSIUM PHOS IN 0.9 % NACL 15 MMOL/250 ML BAG IV ONE (08:18)
[2023-11-29 08:56] LABS: Band Neutrophils 11 % (0-1); Differential Total Cells Count 100; Lymphocytes 4 % (15-42); Monocytes 8 % (0-10); Platelet Estimate DECR; Segmented Neutrophils 77 % (40-80); Toxic Granulation 1+
[2023-11-29 08:57] LABS: Blood Morphology Comment NOT SEEN (NOT SEEN)
[2023-11-29] MEDS: ALBUTEROL 2.5 MG/3 ML NEB SOL IH SCH (09:00)
[2023-11-29] MEDS ORDERED: SODIUM CHLORIDE 3% INHALATION 4 ML VIAL.NEB IH SCH (09:00)
[2023-11-29] MEDS: CEFEPIME 1 GM in NA CHLORIDE 0.9% 100 ML IV SCH (09:37)
--- NOTE | 2023-11-29 11:29 | P.PN ---
Date of Service: 11/29/23 Subjective Awake, using the TV remote, shaking his head to answer questions Appears more comfortable, lung sounds more clear CT abd/pelvis with PEG tube in place ROS 10 point ROS as noted above, otherwise negative Physical Exam General: Awake, nonverbal, shakes head to answer HEENT: Other (left skull absence), Abnormal EOM Neck: Supple Respiratory: Rhonchi/gurgles, on 8 Liters facemask to trachcollar Cardiovascular: No edema, Normal S1 S2, Gastrointestinal: Bowel sounds present, Soft and benign, Other (PEG tube present) Musculoskeletal: Other (hemiplegia) Integumentary: No rashes Neurological: Other (Hemiplegia) Urinary: Velazquez catheter Vitals Reviewed Problem list Acute on chronic hypoxic respiratory failure secondary to bilateral lower lobe pneumonia Severe sepsis secondary to pneumonia Trach collar History of MRSA Dysphagia Gastrostomy History of seizures Brain injury Hemiplasia CHF Assessment and Plan Acute on chronic hypoxic respiratory failure secondary to bilateral lower lobe pneumonia Severe sepsis secondary to pneumonia Trach collar History of MRSA -Sepsis criteria WBC 24.3, lactic acid 2.7, heart rate 120, respirations 32, temperature 100.4 rectal, pneumonia -CT chest reports "Mild nodularity, predominantly in the lower lobes, which may reflect pneumonia or pneumonitis" -Chest xray reports "Mild increased opacities in the medial lung bases could reflect atelectasis, pneumonitis, or mild pneumonia." -WBC 14.9, lactic cleared to 1.2 -Zosyn/vancomycin given in the ED -Cefepime and vancomycin on floor -albuterol nebulizer -Tylenol suppository -Pain control -Sputum culture collected, pending result -blood cultures NGTD -Trach care, oxygen protocol, respiratory consulted -Dr. Billings consulted -CT abd/pelvis reports "Patchy bibasilar airspace opacities. These were better evaluated on CT chest of the previous day. Numerous bladder calculi. 5 mm left renal calculus. These are likely stable. Cholelithiasis. No other acute abnormalities, no evidence of bowel obstruction. Percutaneous gastrostomy tube in place. No evidence of free air, significant intra-abdominal free fluid, bowel obstruction or abscess." Dysphagia Gastrostomy -NPO -PEG tube to LIWS -likely restart TF in the AM History of seizures Brain injury Hemiplasia CHF -Supportive care, seizure protocol, aspiration precautions -Continue home medication -Valproic acid level 42.4 -BNP 1566 DVT PPx Lovenox Full code LOS 2 to 3 days [facility]charge Plan: [facility] one more day in ICU <Shelley Robison - Last Filed: 11/29/23 17:12> Patient seen and examined. Patient clinically improved. He is more awake today, able to participate in the conversation by nodding or shaking his head. Blood pressure is more stable. Continue current antibiotics. Nutritional consult for diet resumption. Follow cultures. Bronchodilators as needed Tracheal suctioning as needed. Pulmonary consult Continue antiseizure medications. <yassine sharif - Last Filed: 11/29/23 19:46>
--- NOTE | 2023-11-29 12:44 | P.CNS ---
Date of Consult: 11/29/23 Reason for Consult: Respiratory distress with bilateral pneumonia Chief Complaint: Acute hypoxic respiratory failure History of Present Illness: Patient is 63 years of age admitted with hypoxemia or respiratory distress he lives in a custodial with bilateral pneumonia Allergies No Known Allergies Allergy (Unverified 05/24/22 13:26) Home Medications: Hydrocodone 10/APAP 325 [[place] 10/325*] 1 tab FT Q8H 08/06/22 Hyoscyamine Sulfate [Levsin TAB*] 2 tab FT TID 08/06/22 Lactulose 30 ml FT DAILY PRN 08/06/22 Mineral Oil/Petrolatum,White [Refresh P.m. Ointment] 0.25 inch LEFT EYE QID 08/06/22 Sennosides/Docusate Sodium [Senna Plus 8.6-50 mg Tablet] 2 each FT DAILY 08/06/22 Tizanidine HCl 4 mg FT BID 08/06/22 Valproic Acid (As Sodium Salt) [Valproic Acid] 7.5 ml FT BID 08/06/22 Multivit with Minerals/Lutein [Theratrum Complete 50 Plus Tab] 15 ml FT DAILY 10/12/22 Zinc Gluconate [Zinc] 50 mg FT 1700 10/12/22 Magnesium Oxide [Mag 0X*] 400 mg FT DAILY 12/22/22 Sertraline [Zoloft*] 100 mg FT DAILY 12/22/22 Sertraline [Zoloft*] 100 mg FT DAILY #30 tab 12/24/22 Acetaminophen 2 tab FT Q4H PRN 11/28/23 Acetaminophen [Tylenol*] 650 mg NM Q6H PRN 11/28/23 Albuterol Neb [Proventil 0.083% Neb Soln] 3 ml IH Q6H PRN 11/28/23 Dextran 70/Hypromellose [Artificial Tears Drops] 1 drop EACH EYE Q12H PRN 11/28/23 Gabapentin 300 mg PO TID 11/28/23 Guaifenesin [Liquituss GG] 10 ml FT Q8H 11/28/23 Loratadine [Claritin] 1 tab FT DAILY 11/28/23 - Past Medical/Surgical History Diabetic: No -: Other specified degenerative diseases of nervous system -: Chronic Respiratory Failure with hypoxia -: Dysphagia -: Gastrostomy -: Heart Failure, unspecified -: Hemiplegia -: Hyperlipidemia -: MRSA -: Seizures -: Anxiety -: depression -: conjuctivitis -: PEG -: neurosurgery with craniectomy Psychosocial/ Personal History: unable to obtain, lives [place] - Social History Smoking Status: Unknown if ever smoked Alcohol use: No CD- Drugs: No Caffeine use: No Place of Residence: [place] Review of Systems is unable to be obtained Physical Examination Temp Pulse Resp BP Pulse Ox 98.0 F 111 H 36 H 130/76 96 11/29/23 12:00 11/29/23 12:00 11/29/23 12:00 11/29/23 12:00 11/29/23 12:00 General: Alert, Unresponsive Respiratory: Crackles/rales, Expiratory wheezes Cardiovascular: No edema, Regular rate/rhythm, Normal S1 S2 Gastrointestinal: Normal bowel sounds, Soft and benign - Problems (1) Aspiration pneumonia Current Visit: No Status: Acute Plan: Patient is 63 years of age with a Randolph craniotomy dictated in a custodial as a peg tube admitted with respiratory distress bilateral pneumonia his white count was elevated with treatment with broad-spectrum antibiotics he is at risk for resistant organisms also ordered a nasal culture chest x-ray CT scans all reviewed sputum cultures are pending so far his vital signs are satisfactory oxygenation is also satisfactory patient has had resistant Pseudomonas isolated in the past which is resistant to meropenem and levofloxacin changed to cefepime until cultures are back Qualifiers: Lung location: unspecified part of lung
--- NOTE | 2023-11-29 14:04 | RAD REPORT ---
EXAMINATION: CT Abdomen Pelvis W Contrast CLINICAL INDICATION: Male, 63 years old. r/o bowel obstruction TECHNIQUE: CT abdomen and pelvis was performed, after the administration of IV contrast, as per [facility] protocol. Axial, sagittal and coronal reconstructions were obtained. One or more of the following dose reduction techniques were used: Automated exposure control, adjustment of the mA and k V according to patient size, and iterative reconstruction. Unless otherwise specified, incidental findings do not require dedicated imaging follow-up. COMPARISON: 12/21/2022 CT abdomen and pelvis. CT chest 11/28/2023 FINDINGS: LOWER CHEST: Patchy airspace opacities in the bibasilar lungs more so on the left. LIVER: Normal in size and contour. No focal lesion. BILIARY SYSTEM: Cholelithiasis. No pericholecystic fluid or fat stranding. SPLEEN: Normal size. No focal lesion. PANCREAS: No mass, ductal dilation, or jabari-pancreatic fluid. ADRENALS: Normal; no mass. KIDNEYS: Normal size and contour. No hydronephrosis. 5 mm left interpolar radiodense focus, suggestin g a small calculus. Size evaluation is limited given motion artifact. URINARY BLADDER: Decompressed with Velazquez catheter in place. Numerous calculi layering dependently lar gest measuring 11 mm. GASTROINTESTINAL TRACT: Breathing motion artifact somewhat limits evaluation. Percutaneous gastrostom y tube in place. No evidence of free air, significant intra-abdominal free fluid, bowel obstruction or abscess. APPENDIX: Appendix not visualized, but no inflammatory changes in region of appendix. LYMPH NODES: No lymphadenopathy. MUSCULOSKELETAL: No acute or suspicious osseous abnormality. ADDITIONAL FINDINGS: None. IMPRESSION: Patchy bibasilar airspace opacities. These were better evaluated on CT chest of the previous day. Numerous bladder calculi. 5 mm left renal calculus. These are likely stable. Cholelithiasis. No other acute abnormalities, no evidence of bowel obstruction.
[2023-11-29] MEDS: HYDROCODONE/APAP 10/325 TAB FT PRN (17:43)
[2023-11-29] MEDS: LORazepam 2 MG/ML VIAL IV PRN (20:06)
[2023-11-30 05:41] LABS: Absolute Eosinophils 0.4 K/uL (0-0.5); Absolute Lymphocytes (CBC) 0.7 K/uL (0.7-4.9); Absolute Monocytes 0.7 K/uL (0.1-1.3); Absolute Neutrophil 9.3 K/uL (1.8-8.0); Basophils % 0.1 % (0-1.3); Eosinophils % 3.6 % (0-4.4); Hematocrit 35.7 % (39.6-49.0); Hemoglobin 12.2 g/dL (13.6-17.9); Lymphocytes % 6.3 % (15.3-44.8); MCH 33.1 pg (27.0-35.0); MCHC 34.2 g/dL (32.0-36.0); MCV 96.6 fL (80-100); Platelets 104 thou/uL (152-406); Red Cell Distribution Width 13.6 % (12.1-15.2)
[2023-11-30 05:54] LABS: Albumin/Globulin Ratio 0.6 (1.1-1.8); Anion Gap 6.6 mEq/L (5.0-15.0); Bilirubin Total 0.5 mg/dL (0.2-1.0); Globulin 3.6 g/dL (2.3-3.5); Potassium 3.6 mEq/L (3.5-5.1); Protein, Total 5.6 g/dL (6.4-8.2)
[2023-11-30 05:56] LABS: Phosphorus 1.5 mg/dL (2.5-4.9)
[2023-11-30] MEDS: VANCOMYCIN 1.25 GM in NA CHLORIDE 0.9% 250 ML IVPB SCH (08:57)
[2023-11-30] MEDS ORDERED: LACTULOSE 20 GM/30 ML UCUP FT PRN (09:05)
[2023-11-30] MEDS ORDERED: CARBOXYMETHYLCELLULOSE SODIUM 0.5% 15 ML OPTH PRN (09:05)
[2023-11-30] MEDS: POTASSIUM PHOS IN 0.9 % NACL 15 MMOL/250 ML BAG IV SCH (09:59)
--- NOTE | 2023-11-30 11:53 | P.PN ---
Subjective Date of Service: 11/30/23 Chief Complaint: Acute hypoxic respiratory failure Subjective: Improving (And is doing better no new changes) Review of Systems is unable to be obtained Physical Examination - Vital Signs Temperature: 97.9 F Blood Pressure: 104/63 Pulse: 95 Respirations: 31 Pulse Ox (%): 99 - Physical Exam General: Alert, Cooperative Respiratory: Crackles/rales, Expiratory wheezes Cardiovascular: No edema, Regular rate/rhythm - Studies Microbiology Data (last 24 hrs): 11/28/23 11:30 Blood - Blood Anaerobic Blood Culture - Final 11/28/23 11:15 Blood - Blood Anaerobic Blood Culture - Final Assessment And Plan - Current Problems (Diagnosis) (1) Aspiration pneumonia Current Visit: No Status: Acute Plan: Patient is 63 years of age admitted with pneumonia he is currently doing better ESBL isolated from sputum is on Merrem and vancomycin patient's white count is declined chemistries reviewed vital signs oxygenation stable stable to be transferred to the floor no acute abnormality seen on CT abdomen 2 weeks of meropenem Qualifiers: Lung location: unspecified part of lung
[2023-11-30] MEDS: GABAPENTIN 300 MG CAP FT SCH (12:26)
[2023-11-30] MEDS: Meropenem 1,000 MG in NA CHLORIDE 0.9% 100 ML IV SCH (12:26)
--- NOTE | 2023-11-30 12:51 | P.PN ---
Date of Service: 11/30/23 Subjective Awake, no acute events overnight Appears comfortable CT abd/pelvis with PEG tube in place ROS 10 point ROS as noted above, otherwise negative Physical Exam General: Awake, nonverbal, shakes head to answer HEENT: Other (left skull absence), Abnormal EOM Neck: Supple Respiratory: Rhonchi/gurgles, on 8 Liters facemask to trachcollar Cardiovascular: No edema, Normal S1 S2, Gastrointestinal: Bowel sounds present, Soft and benign, Other (PEG tube present) Musculoskeletal: Other (hemiplegia) Integumentary: No rashes Neurological: Other (Hemiplegia) Urinary: Velazquez catheter Vitals Reviewed Problem list Acute on chronic hypoxic respiratory failure secondary to bilateral lower lobe pneumonia Severe sepsis secondary to pneumonia Trach collar History of MRSA Dysphagia Gastrostomy History of seizures Brain injury Hemiplasia Chronic CHF-unknown EF Plan Acute on chronic hypoxic respiratory failure secondary to bilateral lower lobe pneumonia Severe sepsis secondary to pneumonia Trach collar History of MRSA -Sputum culture collected-showed ESBL E. coli/started on Merrem 11/29 -blood cultures NGTD -Trach care, oxygen protocol, respiratory consulted -Dr. Billinsg/pulmonology consulted and following -May downgrade to floor Dysphagia Gastrostomy -NPO -Tube feeds to be restarted today History of seizures Brain injury Hemiplasia Chronic CHF-unknown EF -Supportive care, seizure protocol, aspiration precautions -Continue home medication DVT PPx Lovenox Full code LOS 2 to 3 days Discharge Plan: Long Term
--- NOTE | 2023-11-30 12:57 | EKG ---
Test Date: 2023-11-28 Test Time: 10:39:27 Twisting Operator: BHUPINDER MEASUREMENT RESULTS: Intervals: Rate: 128 OR: 118 QRSD: 78 QT: 288 QTc: 420 [place]: P: 48 OR: 118 QRS: -79 T: 69 INTERPRETIVE STATEMENTS: Sinus tachycardia Left axis deviation Inferior infarct, age undetermined Anterior infarct, age undetermined Abnormal ECG Compared to ECG 12/21/2022 21:59:24 Sinus rhythm no longer present Myocardial infarct finding still present Electronically Signed On 11-30-23 12:51:24 CDT by Nando Sanchez
[2023-11-30] MEDS: LANO/MINERAL OIL/PETRO 3.5 GM EACH EYE SCH (13:00)
[2023-11-30] MEDS: JEVITY 1.2 CAL LIQUID 1,000 ML BOT FT SCH (13:03)
[2023-11-30] MEDS: guaiFENesin 100 MG/5 ML UCUP FT SCH (17:47)
[2023-11-30] MEDS: VANCOMYCIN 500 MG/VIAL ONE (20:50)
[2023-11-30] MEDS: VANCOMYCIN 1 GM/VIAL ONE (20:50)
[2023-11-30] MEDS: NA CHLORIDE 0.9% 250 ML ONE (20:54)
[2023-11-30] MEDS: VALPROIC ACID 250 MG/5 ML OSYR FT SCH (21:08)
[2023-11-30] MEDS: TIZANIDINE 4 MG TABLET FT SCH (21:09)
[2023-11-30] MEDS: ZOLPIDEM TARTRATE 5 MG TABLET PO PRN (21:14)
[2023-12-01] MEDS: NA CHLORIDE 0.9% 500 ML ONE (01:12)
[2023-12-01] MEDS: NA CHLORIDE 0.9% 500 ML IV ONE (01:19)
[2023-12-01 06:38] LABS: Absolute Eosinophils 0.9 K/uL (0-0.5); Absolute Lymphocytes (CBC) 1.1 K/uL (0.7-4.9); Absolute Monocytes 0.7 K/uL (0.1-1.3); Absolute Neutrophil 5.2 K/uL (1.8-8.0); Basophils % 0.2 % (0-1.3); Eosinophils % 11.1 % (0-4.4); Hemoglobin 12.8 g/dL (13.6-17.9); Lymphocytes % 14.2 % (15.3-44.8); MCH 32.8 pg (27.0-35.0); MCHC 33.7 g/dL (32.0-36.0); MCV 97.3 fL (80-100); MPV 8.8 fL (7.6-11.3); Monocytes % 8.4 % (3.3-12.3); Neutrophils % 66.1 % (41.7-73.7); Nucleated Red Blood Cells % 0.1 % (0-0); Platelets 129 thou/uL (152-406); RBC Red Blood Cell Count 3.91 M/uL (4.33-5.43); Red Cell Distribution Width 13.5 % (12.1-15.2)
[2023-12-01 06:59] LABS: Albumin 1.9 g/dL (3.4-5.0); Albumin/Globulin Ratio 0.5 (1.1-1.8); Anion Gap 6.7 mEq/L (5.0-15.0); Bilirubin Total 0.3 mg/dL (0.2-1.0); Globulin 3.8 g/dL (2.3-3.5); Magnesium 2.2 mg/dL (1.6-2.4); Phosphorus 2.2 mg/dL (2.5-4.9); Potassium 3.7 mEq/L (3.5-5.1); Protein, Total 5.7 g/dL (6.4-8.2)
[2023-12-01] MEDS: POTASSIUM PHOS IN 0.9 % NACL 15 MMOL/250 ML BAG IV ONE (10:13)
--- NOTE | 2023-12-01 10:15 | P.PN ---
Date of Service: 12/01/23 Subjective Awake, no acute events overnight Appears comfortable Started on tube feeds, tolerating ROS 10 point ROS as noted above, otherwise negative Physical Exam General: Awake, nonverbal, shakes head to answer HEENT: Other (left skull absence), Abnormal EOM Neck: Supple Respiratory: Rhonchi/gurgles, on 8 Liters facemask to trachcollar Cardiovascular: No edema, Normal S1 S2, Gastrointestinal: Bowel sounds present, Soft and benign, Other (PEG tube present) Musculoskeletal: Other (hemiplegia) Integumentary: No rashes Neurological: Other (Hemiplegia) Urinary: Velazquez catheter Vitals Reviewed Problem list Acute on chronic hypoxic respiratory failure secondary to bilateral lower lobe pneumonia Severe sepsis secondary to pneumonia Trach collar History of MRSA Dysphagia Gastrostomy History of seizures Brain injury Hemiplasia Chronic CHF-unknown EF Plan Acute on chronic hypoxic respiratory failure secondary to bilateral lower lobe pneumonia Severe sepsis secondary to pneumonia Trach collar History of MRSA -Sputum culture collected-showed ESBL E. coli/started on Merrem 11/29 -blood cultures NGTD -Trach care, oxygen protocol, respiratory consulted -Dr. Billings/pulmonology consulted and following Dysphagia Gastrostomy -NPO -Tube feeds to be restarted-tolerating History of seizures Brain injury Hemiplasia Chronic CHF-unknown EF -Supportive care, seizure protocol, aspiration precautions -Home meds restarted DVT PPx Lovenox Full code LOS 2 to 3 days Discharge Plan: Senior Living
[2023-12-01] MEDS: SERTRALINE HCL 100 MG TAB FT SCH (10:16)
[2023-12-01] MEDS: DOCUSATE NA/SENNA CONC 1 TAB FT SCH (10:16)
[2023-12-01] MEDS: LORATADINE 10 MG TAB FT SCH (10:17)
[2023-12-01] MEDS: MAGNESIUM OXIDE 400 MG TAB FT SCH (10:18)
[2023-12-02 07:48] LABS: Absolute Eosinophils 0.4 K/uL (0-0.5); Absolute Lymphocytes (CBC) 1.1 K/uL (0.7-4.9); Absolute Monocytes 0.6 K/uL (0.1-1.3); Absolute Neutrophil 4.7 K/uL (1.8-8.0); Basophils % 0.1 % (0-1.3); Eosinophils % 5.5 % (0-4.4); Hematocrit 40.1 % (39.6-49.0); Hemoglobin 13.6 g/dL (13.6-17.9); Lymphocytes % 15.8 % (15.3-44.8); MCH 32.5 pg (27.0-35.0); MCHC 33.8 g/dL (32.0-36.0); MCV 96.4 fL (80-100); MPV 8.4 fL (7.6-11.3); Monocytes % 8.7 % (3.3-12.3); Neutrophils % 69.9 % (41.7-73.7); Platelets 142 thou/uL (152-406); RBC Red Blood Cell Count 4.17 M/uL (4.33-5.43); Red Cell Distribution Width 13.1 % (12.1-15.2)
[2023-12-02 08:10] LABS: Albumin/Globulin Ratio 0.5 (1.1-1.8); Anion Gap 6.8 mEq/L (5.0-15.0); Bilirubin Total 0.3 mg/dL (0.2-1.0); Globulin 4.1 g/dL (2.3-3.5); Magnesium 1.7 mg/dL (1.6-2.4); Phosphorus 2.9 mg/dL (2.5-4.9); Potassium 3.8 mEq/L (3.5-5.1); Protein, Total 6.1 g/dL (6.4-8.2)
[2023-12-02] MEDS: KCL 20 MEQ/100 mL IVPB 20 MEQ/100 ML BAG IV SCH ×2 (09:00→17:20)
[2023-12-02] MEDS: MAGNESIUM SULFATE 1 gm IVPB 1 GM/100 ML BAG IV ONE (09:10)
[2023-12-02] MEDS: VANCOMYCIN 1.25 GM in NA CHLORIDE 0.9% 250 ML IVPB SCH (13:34)
--- NOTE | 2023-12-02 15:02 | P.PN ---
Date of Service: 12/02/23 Subjective Awake, no acute events overnight Appears comfortable Started on tube feeds, tolerating ROS 10 point ROS as noted above, otherwise negative Physical Exam General: Awake, nonverbal, shakes head to answer HEENT: Other (left skull absence), Abnormal EOM Neck: Supple Respiratory: Rhonchi/gurgles, on 8 Liters facemask to trachcollar Cardiovascular: No edema, Normal S1 S2, Gastrointestinal: Bowel sounds present, Soft and benign, Other (PEG tube present) Musculoskeletal: Other (hemiplegia) Integumentary: No rashes Neurological: Other (Hemiplegia) Urinary: Velazquez catheter Vitals Reviewed Problem list Acute on chronic hypoxic respiratory failure secondary to bilateral lower lobe pneumonia Severe sepsis secondary to pneumonia Trach collar History of MRSA Dysphagia Gastrostomy History of seizures Brain injury Hemiplasia Chronic CHF-unknown EF Plan Acute on chronic hypoxic respiratory failure secondary to bilateral lower lobe pneumonia Severe sepsis secondary to pneumonia Trach collar History of MRSA Sputum and nasopharynx culture growing ESBL -Sputum culture collected-showed ESBL E. coli/started on Merrem 11/29 will need two weeks abx -PICC line ordered 12/01 -blood cultures NGTD -Trach care, oxygen protocol, respiratory consulted -Dr. Billings/pulmonology consulted and following Dysphagia Gastrostomy -NPO -Tube feeds to be restarted-tolerating History of seizures Brain injury Hemiplasia Chronic CHF-unknown EF -Supportive care, seizure protocol, aspiration precautions -Home meds restarted DVT PPx Lovenox Full code LOS 2 to 3 days Discharge Plan: [facility]
--- NOTE | 2023-12-02 20:03 | RAD REPORT ---
EXAMINATION: ONE VIEW CHEST XR CLINICAL INDICATION: Male, 63 years old.,PICC TECHNIQUE: Frontal chest projection is submitted. Examination is limited by patient positioning and t echnique. COMPARISON: 11/28/2023 FINDINGS: Superimposition of facial tissues limits evaluation particularly of the upper right lung. Tracheostom y tube in place. Patchy peripheral predominant airspace opacities particularly in the upper lungs and left midlung, stable. Left arm PICC in satisfactory position. The lungs are mildly hypoventilated . No pneumothorax or sizable effusion. The heart is normal in size. IMPRESSION: Satisfactory positioning of left arm PICC. Stable peripheral opacities, may reflect scarring or mild pneumonitis.
[2023-12-02] MEDS: Mupirocin NASAL 2 APPL/1 GM TUBE NAS SCH (20:56)
[2023-12-03 05:32] LABS: Absolute Eosinophils 0.7 K/uL (0-0.5); Absolute Lymphocytes (CBC) 1.2 K/uL (0.7-4.9); Absolute Monocytes 0.8 K/uL (0.1-1.3); Absolute Neutrophil 4.9 K/uL (1.8-8.0); Basophils % 0.1 % (0-1.3); Eosinophils % 9.3 % (0-4.4); Hematocrit 36.6 % (39.6-49.0); Hemoglobin 12.5 g/dL (13.6-17.9); Lymphocytes % 15.6 % (15.3-44.8); MCH 32.5 pg (27.0-35.0); MCHC 34.1 g/dL (32.0-36.0); MCV 95.2 fL (80-100); MPV 8.1 fL (7.6-11.3); Monocytes % 10.4 % (3.3-12.3); Neutrophils % 64.6 % (41.7-73.7); Platelets 162 thou/uL (152-406); RBC Red Blood Cell Count 3.84 M/uL (4.33-5.43); Red Cell Distribution Width 12.7 % (12.1-15.2)
[2023-12-03 05:47] LABS: Albumin 2.1 g/dL (3.4-5.0); Albumin/Globulin Ratio 0.5 (1.1-1.8); Anion Gap 7.7 mEq/L (5.0-15.0); Bilirubin Total 0.4 mg/dL (0.2-1.0); Globulin 3.9 g/dL (2.3-3.5); Magnesium 1.6 mg/dL (1.6-2.4); Phosphorus 3.2 mg/dL (2.5-4.9); Potassium 3.7 mEq/L (3.5-5.1)
[2023-12-03] MEDS: KCL 20 MEQ/100 mL IVPB 20 MEQ/100 ML BAG IV SCH (06:34)
[2023-12-03] MEDS: MAGNESIUM SULFATE 1 gm IVPB 1 GM/100 ML BAG IV ONE (06:34)
--- NOTE | 2023-12-03 15:12 | P.PN ---
Date of Service: 12/03/23 Subjective Awake, no acute events overnight Appears comfortable Started on tube feeds, tolerating ROS 10 point ROS as noted above, otherwise negative Physical Exam General: Awake, nonverbal, shakes head to answer HEENT: Other (left skull absence), Abnormal EOM Neck: Supple Respiratory: Rhonchi/gurgles, on 8 Liters facemask to trachcollar Cardiovascular: No edema, Normal S1 S2, Gastrointestinal: Bowel sounds present, Soft and benign, Other (PEG tube present) Musculoskeletal: Other (hemiplegia) Integumentary: No rashes Neurological: Other (Hemiplegia) Urinary: Velazquez catheter Vitals Reviewed Problem list Acute on chronic hypoxic respiratory failure secondary to bilateral lower lobe pneumonia Severe sepsis secondary to pneumonia Trach collar History of MRSA Dysphagia Gastrostomy History of seizures Brain injury Hemiplasia Chronic CHF-unknown EF Plan Acute on chronic hypoxic respiratory failure secondary to bilateral lower lobe pneumonia Severe sepsis secondary to pneumonia Trach collar History of MRSA Sputum and nasopharynx culture growing ESBL -Sputum culture collected-showed ESBL E. coli/started on Merrem 11/29 will need two weeks abx end date 12/13 -PICC line in place -blood cultures NGTD -Trach care, oxygen protocol, respiratory consulted -Dr. Billings/pulmonology consulted and following Dysphagia Gastrostomy -NPO -Tube feeds to be restarted-tolerating History of seizures Brain injury Hemiplasia Chronic CHF-unknown EF -Supportive care, seizure protocol, aspiration precautions -Home meds restarted DVT PPx Lovenox Full code LOS 2 to 3 days Discharge Plan: Detention
[2023-12-03] MEDS: Meropenem 1000 MG/VIAL IV ONE (21:00)
[2023-12-04 05:17] LABS: Absolute Eosinophils 0.8 K/uL (0-0.5); Absolute Lymphocytes (CBC) 1.7 K/uL (0.7-4.9); Absolute Neutrophil 4.4 K/uL (1.8-8.0); Basophils % 0.4 % (0-1.3); Eosinophils % 10.5 % (0-4.4); Hematocrit 37.3 % (39.6-49.0); Hemoglobin 12.8 g/dL (13.6-17.9); Lymphocytes % 21.5 % (15.3-44.8); MCH 32.8 pg (27.0-35.0); MCHC 34.4 g/dL (32.0-36.0); MCV 95.4 fL (80-100); MPV 8.2 fL (7.6-11.3); Monocytes % 12.4 % (3.3-12.3); Neutrophils % 55.2 % (41.7-73.7); Platelets 195 thou/uL (152-406); RBC Red Blood Cell Count 3.91 M/uL (4.33-5.43); Red Cell Distribution Width 12.9 % (12.1-15.2)
[2023-12-04 05:43] LABS: Albumin 2.2 g/dL (3.4-5.0); Albumin/Globulin Ratio 0.5 (1.1-1.8); Anion Gap 6.5 mEq/L (5.0-15.0); Bilirubin Total 0.5 mg/dL (0.2-1.0); Globulin 4.2 g/dL (2.3-3.5); Magnesium 1.8 mg/dL (1.6-2.4); Phosphorus 3.1 mg/dL (2.5-4.9); Potassium 3.5 mEq/L (3.5-5.1); Protein, Total 6.4 g/dL (6.4-8.2)
[2023-12-04] MEDS: KCL 20 MEQ/100 mL IVPB 20 MEQ/100 ML BAG IV SCH (06:16)
[2023-12-04] MEDS: MAGNESIUM SULFATE 1 gm IVPB 1 GM/100 ML BAG IV ONE (06:16)
--- NOTE | 2023-12-04 11:35 | P.PN ---
Date of Service: 12/04/23 Subjective Awake, no acute events overnight Appears comfortable Started on tube feeds, tolerating ROS 10 point ROS as noted above, otherwise negative Physical Exam General: Awake, nonverbal, shakes head to answer HEENT: Other (left skull absence), Abnormal EOM Neck: Supple Respiratory: Rhonchi/gurgles, on 8 Liters facemask to trachcollar Cardiovascular: No edema, Normal S1 S2, Gastrointestinal: Bowel sounds present, Soft and benign, Other (PEG tube present) Musculoskeletal: Other (hemiplegia) Integumentary: No rashes Neurological: Other (Hemiplegia) Urinary: Velazquez catheter Vitals Reviewed Problem list Acute on chronic hypoxic respiratory failure secondary to bilateral lower lobe pneumonia Severe sepsis secondary to pneumonia Trach collar History of MRSA Dysphagia Gastrostomy History of seizures Brain injury Hemiplasia Chronic CHF-unknown EF Plan Acute on chronic hypoxic respiratory failure secondary to bilateral lower lobe pneumonia Severe sepsis secondary to pneumonia Trach collar History of MRSA Sputum and nasopharynx culture growing ESBL -Sputum culture collected-showed ESBL E. coli/started on Merrem 11/29 will need two weeks abx end date 12/13 -PICC line in place -blood cultures NGTD -Trach care, oxygen protocol, respiratory consulted -Dr. Billings/pulmonology consulted and following -Velazquez DC today with voiding trial Diarrhea Has had a few episodes of diarrhea the past 2 days Stool sent for c.diff test and stool culture Dysphagia Gastrostomy -NPO -Tube feeds to be restarted-tolerating History of seizures Brain injury Hemiplasia Chronic CHF-unknown EF -Supportive care, seizure protocol, aspiration precautions -Home meds restarted DVT PPx Lovenox Full code LOS 2 to 3 days Discharge Plan: Retirement
[2023-12-04] MEDS: WATER FOR INJ,STERILE 10 ML IV SCH (13:28)
[2023-12-04] MEDS: ALTEPLASE 2 MG/VIAL IV SCH (13:28)
[2023-12-04 17:23] LABS: C.diff Antigen/Toxin Ag neg : Tox neg (NEG : NEG); CDIFF INTERNAL NEG CONTROL White Background (WHITE BKGD); STOOL CONSISTENCY Formed/Solid (soft)
[2023-12-05 05:03] LABS: Hemoglobin 13.2 g/dL (13.6-17.9); MPV 7.6 fL (7.6-11.3)
[2023-12-05 05:09] LABS: Absolute Eosinophils 1.1 K/uL (0-0.5); Absolute Lymphocytes (CBC) 2.4 K/uL (0.7-4.9); Absolute Monocytes 1.2 K/uL (0.1-1.3); Absolute Neutrophil 3.7 K/uL (1.8-8.0); Basophils % 0.5 % (0-1.3); Eosinophils % 12.8 % (0-4.4); Hematocrit 38.4 % (39.6-49.0); Lymphocytes % 28.8 % (15.3-44.8); MCH 32.4 pg (27.0-35.0); MCHC 34.2 g/dL (32.0-36.0); MCV 94.7 fL (80-100); Monocytes % 13.9 % (3.3-12.3); Nucleated Red Blood Cells % 0.5 % (0-0); Platelets 263 thou/uL (152-406); RBC Red Blood Cell Count 4.06 M/uL (4.33-5.43); Red Cell Distribution Width 13.4 % (12.1-15.2)
[2023-12-05 05:17] LABS: Albumin 2.3 g/dL (3.4-5.0); Albumin/Globulin Ratio 0.6 (1.1-1.8); Anion Gap 5.8 mEq/L (5.0-15.0); Bilirubin Total 0.3 mg/dL (0.2-1.0); Magnesium 1.9 mg/dL (1.6-2.4); Phosphorus 3.6 mg/dL (2.5-4.9); Potassium 3.8 mEq/L (3.5-5.1); Protein, Total 6.3 g/dL (6.4-8.2)
[2023-12-05 06:07] VITALS: TEMP 98.1
[2023-12-05] MEDS: KCL 20 MEQ/100 mL IVPB 20 MEQ/100 ML BAG IV SCH (06:15)
[2023-12-05 10:20] VITALS: O2SAT 95
--- NOTE | 2023-12-05 10:48 | P.DS ---
Admission Date: 11/28/23 Discharge Date: 12/05/23 Disposition: TRANSFER TO SNF - MEDICAL Discharge Condition: FAIR Reason for Admission: Acute hypoxic respiratory failure Brief History of Present Illness: Elliot Hathaway is a 63-year-old male with past medical history of hemiplegia, tracheostomy, gastrostomy, dysphagia, chronic respiratory failure, brain injury, anxiety, seizures, MRSA, who presents to the ED with shortness of breath. Elliot is a resident at [facility] and was brought to the ED via the EMS for hypoxia. On evaluation, Elliot has a trach collar in place with 10 liters Facemask with satisfactory oxygenation. PEG tube and jimenez also in place. Lung sounds with rhonchi/gurgles. CT chest and Chest xray showing pneumonia to bilateral lower lobes. Hospital Course: Patient was admitted to the hospital for pneumonia, hypoxic respiratory failure. He was initially treated with Unasyn, vancomycin but he had a sputum culture performed which showed E. coli ESBL and a nasal culture showing E. coli ESBL and Enterococcus faecalis. After reviewing the cultures patient switched to meropenem which he will need a total of 2 weeks of. He is a resident of a local longterm, PICC line was inserted to left upper extremity and it was arranged for him to receive Meropenem 1 g every 8 hours through 12/13. He was continued on his tube feeds and other home medications, has been tolerating these well. He has been having around 1 episode of loose stools daily, C. difficile test was performed which was negative. He has remained afebrile and white blood cell count stable for the last 4 days. He is stable for discharge back to longterm Continue home medications as previously prescribed He will be on IV meropenem through his PICC line to left upper extremity 3 times daily through 12/13. After this PICC line can be removed. Problem list Acute on chronic hypoxic respiratory failure secondary to bilateral lower lobe pneumonia Severe sepsis secondary to pneumonia Trach collar History of MRSA Dysphagia Gastrostomy History of seizures Brain injury Hemiplasia Chronic CHF-unknown EF Physical assessment General: Awake, nonverbal, shakes head to answer HEENT: Other (left skull absence), Abnormal EOM Neck: Supple Respiratory: Rhonchi/gurgles, on 8 Liters facemask to trachcollar Cardiovascular: No edema, Normal S1 S2, Gastrointestinal: Bowel sounds present, Soft and benign, Other (PEG tube present) Musculoskeletal: Other (hemiplegia) Integumentary: No rashes Neurological: Other (Hemiplegia) Urinary: Jimenez has been removed Vital Signs/Physical Exam: Temp Pulse Resp BP Pulse Ox 98.1 F 83 14 129/80 95 12/05/23 05:00 12/05/23 05:00 12/05/23 08:36 12/05/23 05:00 12/05/23 08:36 Laboratory Data at Discharge: WBC 8.40 thou/uL (4.3-10.9) 12/05/23 04:50 Hgb 13.2 g/dL (13.6-17.9) L 12/05/23 04:50 Hct 38.4 % (39.6-49.0) L 12/05/23 04:50 Plt Count 263 thou/uL (152-406) D 12/05/23 04:50 PT 14.4 SECONDS (9.4-12.5) H 11/28/23 11:30 INR 1.30 11/28/23 11:30 Sodium 144 mEq/L (136-145) 12/05/23 04:50 Potassium 3.8 mEq/L (3.5-5.1) 12/05/23 04:50 BUN 15 mg/dL (7-18) 12/05/23 04:50 Creatinine 0.74 mg/dL (0.70-1.30) 12/05/23 04:50 Glucose 108 mg/dL (74-106) H 12/05/23 04:50 Phosphorus 3.6 mg/dL (2.5-4.9) 12/05/23 04:50 Magnesium 1.9 mg/dL (1.6-2.4) 12/05/23 04:50 Total Bilirubin 0.3 mg/dL (0.2-1.0) 12/05/23 04:50 AST 32 U/L (15-37) 12/05/23 04:50 ALT 31 U/L (16-61) 12/05/23 04:50 Alkaline Phosphatase 90 U/L (45-117) 12/05/23 04:50 Lipase 26 U/L (13-75) 11/28/23 11:30 Home Medications: Hydrocodone 10/APAP 325 [[place] [address]*] 1 tab FT Q8H 08/06/22 Hyoscyamine Sulfate [Levsin TAB*] 2 tab FT TID 08/06/22 Lactulose 30 ml FT DAILY PRN 08/06/22 Mineral Oil/Petrolatum,White [Refresh P.m. Ointment] 0.25 inch LEFT EYE QID 08/06/22 Sennosides/Docusate Sodium [Senna Plus 8.6-50 mg Tablet] 2 each FT DAILY 08/06/22 Tizanidine HCl 4 mg FT BID 08/06/22 Valproic Acid (As Sodium Salt) [Valproic Acid] 7.5 ml FT BID 08/06/22 Multivit with Minerals/Lutein [Theratrum Complete 50 Plus Tab] 15 ml FT DAILY 10/12/22 Zinc Gluconate [Zinc] 50 mg FT 1700 10/12/22 Magnesium Oxide [Mag 0X*] 400 mg FT DAILY 12/22/22 Sertraline [Zoloft*] 100 mg FT DAILY 12/22/22 Sertraline [Zoloft*] 100 mg FT DAILY #30 tab 12/24/22 Acetaminophen 2 tab FT Q4H PRN 11/28/23 Acetaminophen [Tylenol*] 650 mg HI Q6H PRN 11/28/23 Albuterol Neb [Proventil 0.083% Neb Soln] 3 ml IH Q6H PRN 11/28/23 Dextran 70/Hypromellose [Artificial Tears Drops] 1 drop EACH EYE Q12H PRN 11/28/23 Gabapentin 300 mg PO TID 11/28/23 Guaifenesin [Liquituss GG] 10 ml FT Q8H 11/28/23 Loratadine [Claritin] 1 tab FT DAILY 11/28/23 Physician Discharge Instructions: Patient was admitted to the hospital for pneumonia, hypoxic respiratory failure. He was initially treated with Unasyn, vancomycin but he had a sputum culture performed which showed E. coli ESBL and a nasal culture showing E. coli ESBL and Enterococcus faecalis. After reviewing the cultures patient switched to meropenem which he will need a total of 2 weeks of. He is a resident of a local longterm, PICC line was inserted to left upper extremity and it was arranged for him to receive Meropenem 1 g every 8 hours through 12/13. He was continued on his tube feeds and other home medications, has been tolerating these well. He has been having around 1 episode of loose stools daily, C. difficile test was performed which was negative. He has remained afebrile and white blood cell count stable for the last 4 days. He is stable for discharge back to longterm Continue home medications as previously prescribed He will be on IV meropenem through his PICC line to left upper extremity 3 times daily through 12/13. After this PICC line can be removed. Diet: tube feeds Activity: Bedrest Followup: Adali Eric MD [Primary Care Provider] - 2-3 Days Time spent managing pt's care (in minutes): 48
[2023-12-05 12:39] VITALS: BP 127/82
== END 2023-12-05 12:20 | DRG 871 ==
LOC: ER 10:25 → ERHOLD 15:42 → 3RD-ICU 16:24 → 4TH 11-30 13:57
PROVIDERS: ADMIT Internal Medicine; ATTEND Internal Medicine Sleep Medicine
PROC: 02HV33Z Insertion of Infusion Device into Superior Vena Cava, Percutaneous Approach (ICD-10-PCS; principal; 2023-12-02)
PROC: 0T9B70Z Drainage of Bladder with Drainage Device, Via Natural or Artificial Opening (ICD-10-PCS; 2023-12-02)
DX: A41.51 Sepsis due to Escherichia coli [E. coli] (principal); J69.0 Pneumonitis due to inhalation of food and vomit; J96.21 Acute and chronic respiratory failure with hypoxia; S06.9XAA Unspecified intracranial injury with loss of consciousness status unknown, initial encounter; G81.90 Hemiplegia, unspecified affecting unspecified side; Z16.12 Extended spectrum beta lactamase (ESBL) resistance; A41.81 Sepsis due to Enterococcus; R65.20 Severe sepsis without septic shock; L89.152 Pressure ulcer of sacral region, stage 2; E78.5 Hyperlipidemia, unspecified; I50.9 Heart failure, unspecified; R19.7 Diarrhea, unspecified; R13.10 Dysphagia, unspecified; Z93.1 Gastrostomy status; Z93.0 Tracheostomy status; Z86.14 Personal history of Methicillin resistant Staphylococcus aureus infection; Z79.899 Other long term (current) drug therapy
CPT/HCPCS: 36415; 36556; 36569; 51702; 71045; 71250; 74177; 80048; 80053; 80076; 80164; 80202; 81001; 82947; 83605; 83690; 83735; 83880; 84100; 84484; 85025; 85610; 87040; 87045; 87046; 87070; 87077; 87186; 87205; 87324; 93005; 99285; J0692; J1650; J1940; J2185; J2270; J2405; J2543; J2997; J3475; J3480; J7030; J7040; J7050; J7613; J7614; J7644; J7799; Q9967

== ENCOUNTER 2024-02-19 10:27 | Emergency (ER) | payer OTHER ==
--- NOTE | 2024-02-19 12:52 | ER ---
Nurse's Notes [facility] Name: Elliot Hathaway Age: 64 yrs Sex: Male : 1960 Arrival Date: 02/19/2024 Time: 10:27 Bed 7 Private MD: Diagnosis: PEG tube feeding tube replacement Presentation: 02/18 10:41 Chief complaint: EMS states: G tube isn't functioning, rip in tubing. Coronavirus ll1 screen: Client denies travel out of the [place] in the last 14 days. At this time, the client does not indicate any symptoms associated with coronavirus-19. Ebola Screen: Patient denies travel to an Ebola-affected area in the 21 days before illness onset. Initial Sepsis Screen: Does the patient meet any 2 criteria? No. Patient's initial sepsis screen is negative. Does the patient have a suspected source of infection? No. Patient's initial sepsis screen is negative. Risk Assessment: Do you want to hurt yourself or someone else? Patient reports no desire to harm self or others. Onset of symptoms was February 19, 2024. 10:41 Method Of Arrival: EMS ll1 10:41 Acuity: KRISTINE 3 ll1 11:00 Transition of care: patient was received from another setting of care (long-term care [facility] facility), [facility]. Triage Assessment: 10:41 General: Appears distressed, uncomfortable, Behavior is calm, cooperative, appropriate ll1 for age. Pain: Denies pain. GI: Reports tear in G tube tubing, not working. Historical: - Allergies: 10:41 No Known Allergies; ll1 - PMHx: 10:41 Anxiety; brain injury; chronic respiratory failure with hypoxia; DYSPHAGIA; ll1 GASTROSTOMY; HEART FAILURE; hemiplegia; Hyperlipidemia; MRSA; Seizures; - PSHx: 10:41 gastric tube; tracheostomy; ll1 - Immunization history:: Adult Immunizations up to date. - Social history:: Smoking status: unknown. Screenin:00 [facility] ED Fall Risk Assessment (Adult) History of falling in the last 3 months, aa5 including since admission Confusion or Disorientation Yes (5 pts) Intoxicated or Sedated No (0 pts) Impaired Gait No (0 pts) Mobility Assist Device Used No (0 pt) Altered Elimination Yes (1 pt) Score/Fall Risk Level 3 or more points = High Risk Oriented to surroundings, Maintained a safe environment, Educated pt \T\ family on fall prevention, incl call for assistance when getting out of bed. Abuse screen: No signs of abuse noted. Nutritional screening: On PEG feeding diet. Tuberculosis screening: No symptoms or risk factors identified. Assessment: 11:00 General: Appears comfortable, Behavior is calm, cooperative. Pain: Unable to use pain aa5 scale. Does not appear to understand pain scale. FLACC scale score is 0 out of 10. Neuro: Level of Consciousness is awake, Pt is non-verbal . Cardiovascular: Patient's skin is warm and dry. Respiratory: Respiratory effort is even, unlabored, Respiratory pattern is regular, symmetrical, Tracheostomy noted. GI: Enteral feeding tube in place, Site clean. prison reports PEG tube not working properly. : brief noted. Derm: Skin is pink, warm \T\ dry. Musculoskeletal: non-ambulatory, contractions noted. 12:02 Reassessment: Patient appears in no apparent distress at this time. iw 12:25 Reassessment: PEG tube was removed by Dr. Barton and new PEG tube was placed by Dr. leslie Barton, verification of placement via x-ray pending, pt tolerated well. . 12:40 Reassessment: Large amount of clear/white secretions noted to tracheostomy, deep aa5 suctioned, pt tolerated well. . 12:44 Reassessment: x-ray at bedside. aa5 13:09 Reassessment: Report given to nurse at [facility], transportation aa5 will be arranged by halfway. . 13:19 Reassessment: Received call back from nurse at [place], ETA for EMS is 20-30 mins . aa5 13:30 Reassessment: Deep suctioned, moderate amount of clear/white secretions noted. . aa5 13:30 Neuro: Level of Consciousness is awake. Respiratory: Respiratory effort is even, aa5 unlabored, Respiratory pattern is regular, symmetrical. Derm: Skin is pink, warm \T\ dry. 13:49 Reassessment: EMS ARRIVAL FOR PATIENT TRANSPORT BACK TO [facility]. db Vital Signs: 10:41 BP 144 / 92; Pulse 84; Resp 18; Temp 97; Pulse Ox 95% on R/A; Pain 0/10; ll1 12:00 BP 149 / 96; Pulse 94; Resp 19 S; Pulse Ox 95% on R/A; aa5 13:05 BP 146 / 94; Pulse 98; Resp 20 S; Pulse Ox 96% on R/A; aa5 10:41 Pain Scale: Adult ll1 ED Course: 10:39 Patient arrived in ED. sp3 10:39 Rachel Barton MD is Attending Physician. sp3 10:41 Arm band placed on Patient placed in an exam room, on a stretcher. ll1 10:42 Triage completed. ll1 10:59 Cyn Encinas, RN is Primary Nurse. aa5 11:00 Patient has correct armband on for positive identification. Bed in low position. Call aa5 light in reach. Side rails up X2. 12:57 ENTEROSTOMY TUBE CHECK W/CONTR In Process Unspecified. EDMS 13:19 No provider procedures requiring assistance completed. aa5 13:52 Patient did not have IV access during this emergency room visit. aa5 Administered Medications: No medications were administered Medication: 13:18 VIS not applicable for this client. aa5 Outcome: 12:52 Discharge ordered by . sp3 13:50 Discharged to halfway. aa5 13:50 Condition: stable 13:50 Discharge instructions given to halfway nurse Instructed on discharge instructions, follow up and referral plans. 13:52 Patient left the ED. aa5 Signatures: Dispatcher [employer] EDMS Ni Lindsay RN RN Cyn Encinas, RN RN aa5 Yeny Broderick RN RN ll1 Rachel Barton MD MD sp3 Matilde Lei RN RN db Corrections: (The following items were deleted from the chart) 02/19 07:27 02/18 12:25 Reassessment: PEG tube was removed by Dr. Barton and new PEG tube was placed aa5 by Dr. Barton, verification via x-ray pending, pt tolerated well. . aa5
--- NOTE | 2024-02-19 12:52 | EDPHYS ---
Physician Documentation [facility] Name: Elliot Hathaway Age: 64 yrs Sex: Male : 1960 Arrival Date: 02/19/2024 Time: 10:27 Bed 7 Private MD: ED Physician Rachel Barton HPI: 02/18 12:03 This 64 yrs old Male presents to ER via EMS with complaints of Problem With Feeding sp3 Tube. 12:03 64-year-old male with prior brain injury, chronic respiratory failure, PEG tube in sp3 place now presents via EMS for PEG tube malfunction and "rip in the tube". He is here for PEG tube replacement. Patient is nonverbal. ROS, history physical otherwise limited.. Historical: - Allergies: 10:41 No Known Allergies; ll1 - PMHx: 10:41 Anxiety; brain injury; chronic respiratory failure with hypoxia; DYSPHAGIA; ll1 GASTROSTOMY; HEART FAILURE; hemiplegia; Hyperlipidemia; MRSA; Seizures; - PSHx: 10:41 gastric tube; tracheostomy; ll1 - Immunization history:: Adult Immunizations up to date. - Social history:: Smoking status: unknown. ROS: 12:04 Unable to obtain ROS due to baseline dementia, sp3 Exam: 12:04 Chest/axilla: Normal chest wall appearance and motion. Nontender with no deformity. sp3 No lesions are appreciated. Cardiovascular: Regular rate and rhythm with a normal S1 and S2. No gallops, murmurs, or rubs. Normal PMI, no JVD. No pulse deficits. Respiratory: Lungs have equal breath sounds bilaterally, clear to auscultation and percussion. No rales, rhonchi or wheezes noted. No increased work of breathing, no retractions or nasal flaring. 12:04 Abdomen/GI: Abdomen soft, no grimace on palpation. PEG tube in place however there is a rip in the tube., Vital Signs: 10:41 BP 144 / 92; Pulse 84; Resp 18; Temp 97; Pulse Ox 95% on R/A; Pain 0/10; ll1 12:00 BP 149 / 96; Pulse 94; Resp 19 S; Pulse Ox 95% on R/A; aa5 13:05 BP 146 / 94; Pulse 98; Resp 20 S; Pulse Ox 96% on R/A; aa5 10:41 Pain Scale: Adult ll1 Procedures: 12:40 G-tube placement: by the ED physician, Rachel Barton MD Gastrografin study pending.. sp3 MDM: 10:39 Medical Screening Exam initiated sp3 12:04 Data reviewed: vital signs, nurses notes, radiologic studies. ED course: We will obtain sp3 replacement PEG tube and attempt replacement. Chest x-ray pending after with Gastrografin.. 12:51 ED course: X-ray demonstrates adequate placement. We will safely discharge patient back sp3 home.. 02/18 12:57 Order name: ENTEROSTOMY TUBE CHECK W/CONTR; Complete Time: 13:24 EDMS 02/18 10:39 Order name: NPO; Complete Time: 11:54 sp3 02/18 10:39 Order name: Misc. Order: New PEG to bedside; Complete Time: 12:02 sp3 Administered Medications: No medications were administered Disposition Summary: 02/19/24 12:52 Discharge Ordered Notes: Location: Home sp3 Condition: Stable sp3 Diagnosis - PEG tube feeding tube replacement sp3 Followup: sp3 - With: Private Physician - When: Upon discharge from the Emergency Department - Reason: Continuance of care Discharge Instructions: - Discharge Summary Sheet sp3 - PEG Tube Home Guide sp3 Forms: - Medication Reconciliation Form sp3 - Antibiotic Education sp3 - Prescription Opioid Use sp3 - Patient Portal Instructions sp3 - Leadership Thank You Letter sp3 Signatures: Dispatcher [employer] Yeny Horne, RN RN ll1 Rachel Barton MD MD sp3 Corrections: (The following items were deleted from the chart) 12:57 12:33 Abdomen 1 View+RAD.RAD.BRZ ordered. [facility]
--- NOTE | 2024-02-19 13:20 | RAD REPORT ---
EXAM: XR ENTEROSTOMY TUBE CHECK W/CONTR HISTORY: [facility] PEG placement use gastrograffin Bed Name: 7; PEG placement use gastrograffin COMPARISON: None FINDINGS: AP views of the abdomen shows a nonspecific, nonobstructive bowel gas pattern. Gastrostomy of in place. Following manual water-soluble contrast injection, there is contrast opacifying the stomach through the duodenum, with no findings to suggest extraluminal contrast. No suspicious calcif ications are seen. The bones are unremarkable. IMPRESSION: Satisfactory contrast opacification through the gastrostomy tube injection.
[2024-02-22 15:20] VITALS: BP 146/94; TEMP 97; O2SAT 96
== END 2024-02-19 13:52 | disposition home or self-care (01) ==
LOC: ER 10:27
PROC: 0D20XUZ Change Feeding Device in Upper Intestinal Tract, External Approach (ICD-10-PCS; principal; 2024-02-19)
DX: K94.23 Gastrostomy malfunction (principal); F41.9 Anxiety disorder, unspecified; J96.11 Chronic respiratory failure with hypoxia; E78.5 Hyperlipidemia, unspecified
CPT/HCPCS: 49465; 99283

== ENCOUNTER 2024-06-11 11:16 | Emergency (ER) | payer MEDICAID ==
--- NOTE | 2024-06-11 12:16 | EDPHYS ---
Physician Documentation [facility] Name: Elliot Hathaway Age: 64 yrs Sex: Male : 1960 Arrival Date: 06/11/2024 Time: 11:16 Bed 8 Private MD: ED Physician Harry Owusu HPI: 06/11 11:55 This 64 yrs old Male presents to ER via EMS with complaints of peg tube issue.maxi 11:55 The patient presents with abdominal pain peg blocked. Onset: The symptoms/episode maxi began/occurred just prior to arrival. The symptoms do not radiate. Associated signs and symptoms: none. Modifying factors: The symptoms are alleviated by nothing, the symptoms are aggravated by use. Severity of pain: in the emergency department the pain no pain , occlided. The patient has experienced similar episodes in the past, several times. Historical: - Allergies: 11:19 No Known Allergies; cm10 - PMHx: 11:19 Anxiety; brain injury; chronic respiratory failure with hypoxia; DYSPHAGIA; cm10 GASTROSTOMY; HEART FAILURE; hemiplegia; Hyperlipidemia; MRSA; Seizures; - PSHx: 11:19 gastric tube; tracheostomy; cm10 - Immunization history:: Adult Immunizations up to date. - Infectious Disease History:: Denies. - Social history:: Smoking status: Patient denies any tobacco usage or history of. - Family history:: not pertinent. ROS: 11:55 Constitutional: Negative for fever, chills, and weight loss, Eyes: Negative for injury, maxi pain, redness, and discharge, ENT: Negative for injury, pain, and discharge, Neck: Negative for injury, pain, and swelling, Cardiovascular: Negative for chest pain, palpitations, and edema, Respiratory: Negative for shortness of breath, cough, wheezing, and pleuritic chest pain, Back: Negative for injury and pain, : Negative for injury, bleeding, discharge, and swelling, MS/Extremity: Negative for injury and deformity, Skin: Negative for injury, rash, and discoloration, Neuro: Negative for headache, weakness, numbness, tingling, and seizure, Psych: Negative for depression, anxiety, suicide ideation, homicidal ideation, and hallucinations, Allergy/Immunology: Negative for hives, rash, and allergies, Endocrine: Negative for neck swelling, polydipsia, polyuria, polyphagia, and marked weight changes, Hematologic/Lymphatic: Negative for swollen nodes, abnormal bleeding, and unusual bruising, 11:55 Abdomen/GI: Positive for PEG REPLACED, Exam: 11:55 Constitutional: This is a well developed, well nourished patient who is awake, alert, maxi and in no acute distress. Head/Face: Normocephalic, atraumatic. Eyes: Pupils equal round and reactive to light, extra-ocular motions intact. Lids and lashes normal. Conjunctiva and sclera are non-icteric and not injected. Cornea within normal limits. Periorbital areas with no swelling, redness, or edema. Neck: Trachea midline, no thyromegaly or masses palpated, and no cervical lymphadenopathy. Supple, full range of motion without nuchal rigidity, or vertebral point tenderness. No Meningismus. Chest/axilla: Normal chest wall appearance and motion. Nontender with no deformity. No lesions are appreciated. Cardiovascular: Regular rate and rhythm with a normal S1 and S2. No gallops, murmurs, or rubs. Normal PMI, no JVD. No pulse deficits. Respiratory: Lungs have equal breath sounds bilaterally, clear to auscultation and percussion. No rales, rhonchi or wheezes noted. No increased work of breathing, no retractions or nasal flaring. Back: No spinal tenderness. No costovertebral tenderness. Full range of motion. Male : Normal genitalia with no discharge or lesions. Skin: Warm, dry with normal turgor. Normal color with no rashes, no lesions, and no evidence of cellulitis. MS/ Extremity: Pulses equal, no cyanosis. Neurovascular intact. Full, normal range of motion., bilateral aka Neuro: Awake and alert, GCS 15, oriented to person, place, time, and situation. Cranial nerves II-XII grossly intact. Motor strength 5/5 in all extremities. Sensory grossly intact. Cerebellar exam normal. Normal gait. Psych: Awake, alert, with orientation to person, place and time. Behavior, mood, and affect are within normal limits. 11:55 ENT: TRACHEOSTOMY. 11:55 Abdomen/GI: Inspection: distension, that is mild, Bowel sounds: active, Palpation: abdomen is soft and non-tender, Liver: no appreciated palpable abnormalities, Hernia: not appreciated, Vital Signs: 11:24 BP 138 / 97; Pulse 86; Resp 18; Temp 98.7(A); Pulse Ox 96% on R/A; cm10 13:26 BP 160 / 103; Pulse 95; Resp 18; Pulse Ox 95% ; cm10 Procedures: 11:55 G-tube placement: a 18 Portuguese catheter was placed, by the ED physician, Harry Owusu cha, MD. MDM: 11:25 Medical Screening Exam initiated maxi 11:59 Differential diagnosis: diverticulitis, gastritis, Mesenteric ischemia or infarction, maxi non-specific abd pain, pancreatitis, Peptic Ulcer Disease. Data reviewed: vital signs, nurses notes, radiologic studies, plain films. Consideration of Admission/Observation Escalation of care including admission/observation considered. I considered the following discharge prescriptions or medication management in the emergency department Medications were administered in the Emergency Department. See MAR. Independent interpretation of the following test(s) in the Emergency Department X-Ray: My interpretation is KUB. Test considered but Not performed: Labs: NO LABS. Historians other than the Patient: EMS: EMS WELL INFORMED. Care significantly affected by the following chronic conditions: CBI, RESPIRATORY FAILURE. 06/11 12:28 Order name: ENTEROSTOMY TUBE CHECK W/CONTR EDMS Administered Medications: No medications were administered Disposition Summary: 06/11/24 12:16 Discharge Ordered Notes: Location: Home maxi Problem: new maxi Symptoms: have improved maxi Condition: Stable maxi Diagnosis - Encounter for attention to gastrostomy maxi - Gastrostomy complication, unspecified maxi - Gastrostomy complications maxi - Tracheostomy status maxi Followup: maxi - With: Private Physician - When: 2 - 3 days - Reason: Recheck today's complaints, Continuance of care, Re-evaluation by your physician Discharge Instructions: - Discharge Summary Sheet maxi - How to Clean a Tracheostomy Tube, Adult maxi - How to Suction a Tracheostomy Tube, Adult maxi - Gastrostomy Tube Home Guide, Adult maxi - PEG Tube Home Guide, [id number] maxi - How to Clean a Tracheostomy and Replace Tracheostomy Ties, Adult maxi - How to Clean a Tracheostomy Tube, Adult, [id number] maxi - Tracheostomy Tube Safety and Care, Adult maxi - PEG Tube Home Guide maxi Forms: - Medication Reconciliation Form maxi - Antibiotic Education maxi - Prescription Opioid Use maxi - Patient Portal Instructions maxi - Leadership Thank You Letter maxi Signatures: Dispatcher [employer] Harry Mansfield MD MD cha Martinez, Clarissa, RN RN cm10 Corrections: (The following items were deleted from the chart) 11:56 11:55 Abdomen 1 View (KUB)+RAD.RAD.BRZ ordered. EDMS EDMS
--- NOTE | 2024-06-11 12:16 | ER ---
Nurse's Notes [facility] Name: Elliot Hathaway Age: 64 yrs Sex: Male : 1960 Arrival Date: 06/11/2024 Time: 11:16 Bed 8 Private MD: Diagnosis: Encounter for attention to gastrostomy;Gastrostomy complication, unspecified;Gastrostomy complications;Tracheostomy status Presentation: 06/11 11:18 Chief complaint: EMS states: called to [facility] due to peg tube being blocked. cm10 11:18 Method Of Arrival: EMS: [facility] cm10 11:24 Coronavirus screen: Client denies travel out of the [place] in the last 14 days. Ebola cm10 Screen: Patient denies travel to an Ebola-affected area in the 21 days before illness onset. Initial Sepsis Screen: Does the patient meet any 2 criteria? No. Patient's initial sepsis screen is negative. Does the patient have a suspected source of infection? No. Patient's initial sepsis screen is negative. Risk Assessment: Do you want to hurt yourself or someone else? Patient reports no desire to harm self or others. 11:24 Acuity: KRISTINE 4 cm10 11:24 Onset of symptoms was June 11, 2024. cm10 Triage Assessment: 11:24 General: Appears in no apparent distress. comfortable, Behavior is calm, cooperative. cm10 Pain: Unable to use pain scale. Patient appears quiet. Neuro: No deficits noted. Level of Consciousness is awake, alert, obeys commands, Oriented to person, place, time, situation, Appropriate for age. Respiratory: Airway is patent Respiratory effort is even, unlabored, Respiratory pattern is regular, symmetrical. GI: PEG tube. Historical: - Allergies: 11:19 No Known Allergies; cm10 - PMHx: 11:19 Anxiety; brain injury; chronic respiratory failure with hypoxia; DYSPHAGIA; cm10 GASTROSTOMY; HEART FAILURE; hemiplegia; Hyperlipidemia; MRSA; Seizures; - PSHx: 11:19 gastric tube; tracheostomy; cm10 - Immunization history:: Adult Immunizations up to date. - Infectious Disease History:: Denies. - Social history:: Smoking status: Patient denies any tobacco usage or history of. - Family history:: not pertinent. Screenin:25 [facility] Fall Risk Assessment (Adult) History of falling in the last 3 months, cm10 including since admission No falls in past 3 months (0 pts) Confusion or Disorientation No (0 pts) Intoxicated or Sedated No (0 pts) Impaired Gait Yes (1 pt) Mobility Assist Device Used Yes (1 pt) Altered Elimination Yes (1 pt) Score/Fall Risk Level 3 or more points = High Risk Oriented to surroundings, Maintained a safe environment, Hourly rounding (assess needs \T\ fall precautionary measures) done. Abuse screen: Denies threats or abuse. Denies injuries from another. Nutritional screening: No deficits noted. Tuberculosis screening: No symptoms or risk factors identified. Assessment: 12:15 Reassessment: Patient appears in no apparent distress at this time. Patient and/or cm10 family updated on plan of care and expected duration. Pain level reassessed. Patient states symptoms have improved. 12:16 Reassessment:. mb9 12:35 Reassessment: Attempted to contact [facility] to arrange transportation, no answer. cm10 Vital Signs: 11:24 BP 138 / 97; Pulse 86; Resp 18; Temp 98.7(A); Pulse Ox 96% on R/A; cm10 13:26 BP 160 / 103; Pulse 95; Resp 18; Pulse Ox 95% ; cm10 ED Course: 11:17 Patient arrived in ED. ld1 11:17 Julia Noriega, RN is Primary Nurse. cm10 11:24 Triage completed. cm10 11:24 Arm band placed on right wrist. Patient placed in an exam room, on a stretcher. cm10 11:25 Harry Owusu MD is Attending Physician. maxi 11:26 Patient has correct armband on for positive identification. Bed in low position. Call cm10 light in reach. Side rails up X2. Pulse ox on. NIBP on. 12:16 Assisted provider with: PEG tube insertion. mb9 12:35 Provided Education on: Follow-up instructions. cm10 12:36 Patient did not have IV access during this emergency room visit. cm10 12:39 ENTEROSTOMY TUBE CHECK W/CONTR In Process Unspecified. EDMS 12:49 Sandy at [facility] contacted. Getting him a ambulance ride home. ll1 13:27 Handoff report given to [facility] with [facility]. cm10 Administered Medications: No medications were administered Medication: 11:25 VIS not applicable for this client. cm10 Outcome: 12:16 Discharge ordered by MD. german 12:35 Discharged to [facility]. cm10 12:35 Condition: stable 12:35 Discharge instructions given to [facility], Instructed on discharge instructions, follow up and referral plans. Demonstrated understanding of instructions, follow-up care, 13:28 Patient left the ED. cm10 Signatures: Dispatcher [employer] EDHarry Medina MD MD cha Lewis, Lynsay RN RN ll1 Erna Esquivel RN RN ld1 Lina Lancaster, RN RN mb9 Julia Noriega RN RN cm10
--- NOTE | 2024-06-11 12:43 | RAD REPORT ---
EXAM:ENTEROSTOMY TUBE CHECK W/CONTR HISTORY: peg placement COMPARISON: 02/19/2024 FINDINGS/IMPRESSION: Left upper quadrant gastrostomy tube noted. Chief Deputy Court Clerk image shows nonobstructive bow el gas pattern. [place] calcification projects over the pelvis. Contrast is injected via existing tube with evidence of gastric lumen filling. No leakage is appreciated. No lateral view submitted, amol perez assessment.
[2024-06-11 14:22] VITALS: TEMP 98.7
[2024-06-11 14:23] VITALS: BP 160/103; O2SAT 95
== END 2024-06-11 13:28 | disposition home or self-care (01) ==
LOC: ER 11:16
DX: K94.29 Other complications of gastrostomy (principal)
CPT/HCPCS: 49465; 99283

== ENCOUNTER 2024-09-07 11:56 | Inpatient (IN) | payer MEDICAID ==
[2024-09-07 12:36] LABS: Absolute Lymphocytes (CBC) 1.9 K/uL (0.7-4.9); Hematocrit 46.1 % (39.6-49.0); Hemoglobin 15.8 g/dL (13.6-17.9); MCH 31.6 pg (27.0-35.0); MCHC 34.3 g/dL (32.0-36.0); MCV 92.2 fL (80-100); MPV 9.7 fL (7.6-11.3); Nucleated RBC Absolute Count 0.0 (0-0); Nucleated Red Blood Cells % 0.2 % (0-0); RBC Red Blood Cell Count 4.99 M/uL (4.33-5.43); White Blood Count 9.60 thou/uL (4.3-10.9)
[2024-09-07 12:47] LABS: PT Prothrombin Time 12.5 SECONDS (10-13.0); Protime INR 1.11
--- NOTE | 2024-09-07 13:02 | RAD REPORT ---
EXAM: CT CHEST, ABDOMEN AND PELVIS WITHOUT CONTRAST CLINICAL INDICATION: He called the a swelling around PEG tube site nt;Chest pain TECHNIQUE: CT chest, abdomen and pelvis was performed without contrast, as per department protocol. A xial, sagittal and coronal reconstructions were obtained. One or more of the following dose reduction techniques were used: Automated exposure control, adjustment of the mA and/or kV according to patient size, and/or iterative reconstruction. Unless otherwise specified, incidental findings do not require dedicated imaging follow-up. Examination is limited by the lack of intravenous contrast material. COMPARISON: 11/29/2023 FINDINGS: LUNGS: No evidence of airspace or interstitial process. No nodules. PLEURA: No pleural effusion. No pneumothorax. MEDIASTINUM AND LYMPH NODES: No mediastinal mass or fluid collection. Normal size mediastinal, hilar, and axillary lymph nodes. OSSEOUS STRUCTURES AND CHEST WALL: Intact. LIVER: Normal in size and contour. No focal lesion or biliary dilatation. Cholelithiasis. PANCREAS: No mass, ductal dilation, or jabari-pancreatic fluid. SPLEEN: Normal size. No focal lesion. ADRENALS: Normal; no mass. KIDNEYS: Small calculi are present in the calyces of both kidneys without hydronephrosis. URINARY BLADDER: Several stones are also present in the urinary bladder largest on the left posterior ly measuring 15 mm. GASTROINTESTINAL TRACT: No bowel obstruction, free air, significant free fluid or abscess. Gastrost ben tube is in place left abdomen. Small fat-containing umbilical hernia. APPENDIX: Normal appendix. LYMPH NODES: No lymphadenopathy. MUSCULOSKELETAL: Chronic bilateral spondylolysis L5-S1 with mild to moderate anterolisthesis. IMPRESSION: Bilateral calculi seen in both kidneys without hydronephrosis. Numerous bladder calculi present. Gastrostomy tube is noted left abdomen. Position of the tube is not unusual.
[2024-09-07 14:14] LABS: Sqamous Epithelial None Seen /HPF (None Seen); Urine Culture Reflex Order REFLEXED; Urine Microscopic Reflex YN ORDER UMIC; Urine Yeast (Budding) Trace /HPF (None Seen)
[2024-09-07 15:07] LABS: ALT/SGPT 34 U/L (16-61); Albumin 2.5 g/dL (3.4-5.0); Albumin/Globulin Ratio 0.6 (1.1-1.8); Alkaline Phosphatase 97 U/L (45-117); Anion Gap 10.0 mEq/L (5.0-15.0); BUN Blood Urea Nitrogen 21 mg/dL (7-18); Globulin 4.1 g/dL (2.3-3.5); Glucose Level 88 mg/dL (74-106); Lipase 70 U/L (13-75); NT PRO-BNP 39 pg/mL (<125); Troponin High Sensitivity 3.4 pg/mL (<58.9)
[2024-09-07 15:22] LABS: AST/SGOT 75 U/L (15-37); Bilirubin Indirect, Calculated 0.3 mg/dL (0.2-0.8); Magnesium 2.0 mg/dL (1.6-2.4); Potassium 5.0 mEq/L (3.5-5.1)
--- NOTE | 2024-09-07 15:44 | EDPHYS ---
Physician Documentation [facility] Name: Elliot Hathaway Age: 64 yrs Sex: Male : 1960 Arrival Date: 09/07/2024 Time: 11:56 Bed 4 Private MD: ED Physician Rachel Barton HPI: 09/07 12:06 This 64 yrs old Male presents to ER via EMS with complaints of Chest Pain, General sp3 Weakness. 12:06 64-year-old male with prior brain injury, chronic respiratory failure, PEG tube in sp3 place now presents via EMS for chest pain and generalized weakness. Limited ROS, history physical secondary to patient being nonverbal.. Historical: - Allergies: 11:58 No Known Allergies; aa5 - PMHx: 11:58 Anxiety; brain injury; chronic respiratory failure with hypoxia; DYSPHAGIA; aa5 GASTROSTOMY; HEART FAILURE; hemiplegia; Hyperlipidemia; MRSA; Seizures; - PSHx: 11:58 gastric tube; tracheostomy; aa5 - Immunization history:: Adult Immunizations unknown. - Infectious Disease History:: MRSA . - Social history:: Smoking status: unknown. ROS: 12:07 Unable to obtain ROS due to patient's speech is incomprehensible, sp3 Exam: 12:10 Abdomen/GI: Soft abdomen. Mild purulence around PEG tube., sp3 12:10 Unable to obtain exam due to Non-verbal . 14:35 ECG was reviewed by the Attending Physician. EKG demonstrates normal sinus rhythm at 73 sp3 bpm with normal intervals, normal QRS, normal axis, nonspecific ST/T changes without evidence of acute ischemia. Vital Signs: 11:58 BP 109 / 86; Pulse 73; Resp 20 S; Temp 97.1(A); Pulse Ox 91% on R/A; aa5 13:00 BP 109 / 79; Pulse 69; Resp 16; Pulse Ox 94% 3 lpm ; me1 14:00 BP 109 / 71; Pulse 69; Resp 19; Pulse Ox 93% 3 lpm ; me1 15:00 BP 109 / 78; Pulse 69; Resp 22; Pulse Ox 92% 4 lpm ; me1 16:14 BP 116 / 77; Pulse 77; Resp 19; Pulse Ox 100% on 3 lpm trach collar; me1 17:11 BP 119 / 76; Pulse 81; Resp 19 S; Pulse Ox 99% on 6 lpm NC; kc6 MDM: 11:58 Medical Screening Exam initiated sp3 12:13 Data reviewed: vital signs, nurses notes, old medical records, lab test result(s), EKG, sp3 radiologic studies. ED course: 64-year-old male nonverbal with chest pain and history of brain injury. Differential diagnosis includes acute coronary syndrome versus other intrathoracic and/or intra-abdominal process including biliary pathology, pancreatitis, among others. Workup will include cardiac workup including CT chest abdomen pelvis as well as lipase and UA. Disposition pending workup and patient course.. 15:41 ED course: Patient troponin negative. Will place patient in observation for serial sp3 markers and cardiology evaluation.. 09/07 11:59 Order name: Basic Metabolic Panel; Complete Time: 15:40 3 09/07 11:59 Order name: CBC with Diff; Complete [facility]: 13:[facility] 09/07 11:59 Order name: LFT's; Complete Time: 15:40 3 09/07 11:59 Order name: Magnesium; Complete Time: 15:40 3 09/07 11:59 Order name: NT PRO-BNP; Complete Time: 15:40 3 09/07 11:59 Order name: PT-INR; Complete Time: 13:09 3 09/07 11:59 Order name: Troponin HS; Complete Time: 15:40 3 09/07 12:14 Order name: UA Rfx Vasu Cult if indicated; Complete Time: 14:58 [facility] 09/07 12:48 Order name: Lipase; Complete Time: 15:40 [facility] 09/07 14:17 Order name: Urine Culture [facility] 09/07 15:48 Order name: Basic Metabolic Panel [facility] 09/07 15:48 Order name: Basic Metabolic Panel [facility] 09/07 15:48 Order name: CBC with Automated Diff [facility] 09/07 15:48 Order name: CBC with Automated Diff [facility] 09/07 15:48 Order name: Lipid Profile [facility] 09/07 15:48 Order name: Lipid Profile [facility] 09/07 15:48 Order name: Troponin High Sensitivity [facility] 09/07 15:48 Order name: Troponin High Sensitivity [facility] 09/07 15:48 Order name: Troponin High Sensitivity [facility] 09/07 15:48 Order name: Troponin High Sensitivity [facility] 09/07 15:48 Order name: Troponin High Sensitivity [facility] 09/07 15:49 Order name: D-Dimer [facility] 09/07 15:53 Order name: Procalcitonin [facility] 09/07 15:53 Order name: Lactate w/ 2H reflex if indic. [facility] 09/07 11:59 Order name: CT Chest Abdomen Pelvis W/O Contrast; Complete Time: 13:09 3 09/07 11:59 Order name: Cardiac monitoring; Complete Time: 13:32 3 09/07 11:59 Order name: EKG - Nurse/Tech; Complete Time: 13:32 3 09/07 11:59 Order name: IV Saline Lock; Complete Time: 13:32 3 09/07 11:59 Order name: Labs collected and sent; Complete Time: 13:32 3 09/07 11:59 Order name: O2 Per Protocol; Complete Time: 12:04 3 09/07 11:59 Order name: O2 Sat Monitoring; Complete Time: 12:04 3 09/07 12:44 Order name: Labs - recollect needed: green top; Complete Time: 13:53 mb4 Administered Medications: No medications were administered Disposition Summary: 09/07/24 15:43 Hospitalization Ordered Notes: Hospitalization Status: Observation sp3 Provider: Prince Laith sp3 Location: Telemetry/MedSurg (observation) sp3 Condition: Stable sp3 Problem: new sp3 Symptoms: are unchanged sp3 Bed/Room Type: Standard sp3 Room Assignment: 201(09/07/24 17:18) sp3 Diagnosis - Chest pain sp3 Forms: - Medication Reconciliation Form sp3 - SBAR form sp3 - Leadership Thank You Letter sp3 Signatures: Dispatcher [employer] EDCyn Sanches, RN RN gaby5 Jorge Abdul RN RN jaLissette Pool mb4 Rachel Barton MD MD sp3 Corrections: (The following items were deleted from the chart) 12:00 12:00 BASIC METABOLIC PANEL+C.LAB.BRZ ordered. EDMS EDMS 12:00 12:00 CBC+H.LAB.BRZ ordered. EDMS EDMS 12:00 12:00 HEPATIC FUNCTION+C.LAB.BRZ ordered. EDMS EDMS 12:00 12:00 MAGNESIUM+C.LAB.BRZ ordered. EDMS EDMS 12:00 12:00 PROBNP+C.LAB.BRZ ordered. EDMS EDMS 12:00 12:00 PROTIME (+INR)+COAG.LAB.BRZ ordered. EDMS EDMS 12:00 12:00 Troponin High Sensitivity+C.LAB.BRZ ordered. EDMS EDMS 12:00 12:00 Chest Abdomen Pelvis Wo Con+CT.RAD.BRZ ordered. EDMS EDMS 12:14 12:14 UA Rfx Vasu Cult if indicated+U.LAB.BRZ ordered. EDMS EDMS 12:48 12:14 LIPASE+C.LAB.BRZ ordered. EDMS EDMS 16:21 15:43 sp3 mb4 16:39 16:21 427 mb4 ja1 16:41 16:39 219 ja1 mb4 16:42 16:41 427 mb4 mb4 17:18 16:42 219 mb4 sp3
--- NOTE | 2024-09-07 15:44 | ER ---
Nurse's Notes [facility] Name: Elliot Hathaway Age: 64 yrs Sex: Male : 1960 Arrival Date: 09/07/2024 Time: 11:56 Bed 4 Private MD: Diagnosis: Chest pain Presentation: 09/07 11:58 Ebola Screen: Patient denies travel to an Ebola-affected area in the 21 days before aa5 illness onset. Initial Sepsis Screen: Does the patient meet any 2 criteria? No. Patient's initial sepsis screen is negative. Does the patient have a suspected source of infection? No. Patient's initial sepsis screen is negative. Risk Assessment: Do you want to hurt yourself or someone else? Unable to obtain. Onset of symptoms was September 07, 2024. 11:58 Method Of Arrival: EMS: [facility] aa5 11:58 Acuity: KRISTINE 2 aa5 11:58 Chief complaint: EMS states: nursing staff from [facility] reported chest pain and me1 generalized weakness. Increased secretions from tracheostomy and need for deep suction today. 17:11 Coronavirus screen: At this time, the client does not indicate any symptoms associated kc6 with coronavirus-19. Historical: - Allergies: 11:58 No Known Allergies; aa5 - PMHx: 11:58 Anxiety; brain injury; chronic respiratory failure with hypoxia; DYSPHAGIA; aa5 GASTROSTOMY; HEART FAILURE; hemiplegia; Hyperlipidemia; MRSA; Seizures; - PSHx: 11:58 gastric tube; tracheostomy; aa5 - Immunization history:: Adult Immunizations unknown. - Infectious Disease History:: MRSA . - Social history:: Smoking status: unknown. Screenin:00 [facility] ED Fall Risk Assessment (Adult) History of falling in the last 3 months, me1 including since admission No falls in past 3 months (0 pts) Confusion or Disorientation No (0 pts) Intoxicated or Sedated No (0 pts) Impaired Gait Yes (1 pt) Mobility Assist Device Used Yes (1 pt) Altered Elimination Yes (1 pt) Score/Fall Risk Level 0 - 2 = Low Risk Maintained a safe environment, Provided non-skid footwear, Hourly rounding (assess needs \T\ fall precautionary measures) done. Abuse screen: Denies threats or abuse. Nutritional screening: No deficits noted. Tuberculosis screening: No symptoms or risk factors identified. Assessment: 12:00 General: Appears uncomfortable, ill, Behavior is calm, cooperative, appropriate for me1 age, Reports c/o chest pain and has had increased secretions from trach requiring deep suction. Pain: Complains of pain in chest Pain does not radiate. Unable to use pain scale. nonverbal. Patient nods head when asked if he has chest pain. Neuro: Level of Consciousness is awake, alert, obeys commands, Oriented to person, situation, HX TBI, nonverbal but patient will nod or shake his head in answer to yes or no questions.. Cardiovascular: Reports chest pain, Patient's skin is warm and dry. Respiratory: Airway is patent via trache Respiratory effort is even, unlabored, Respiratory pattern is regular, symmetrical, Sputum is thin, yellow white. GI: No signs and/or symptoms were reported involving the gastrointestinal system. : No signs and/or symptoms were reported regarding the genitourinary system. EENT: No signs and/or symptoms were reported regarding the EENT system. Derm: Skin is intact, is healthy with good turgor, Skin is pink, warm \T\ dry. Musculoskeletal: No signs and/or symptoms reported regarding the musculoskeletal system. 13:00 Reassessment: Patient appears in no apparent distress at this time. No changes from kc6 previously documented assessment. Patient and/or family updated on plan of care and expected duration. Pain level reassessed. Patient is alert, oriented x 3, equal unlabored respirations, skin warm/dry/pink. 14:00 Reassessment: Patient appears in no apparent distress at this time. No changes from kc6 previously documented assessment. Patient and/or family updated on plan of care and expected duration. Pain level reassessed. Patient is alert, oriented x 3, equal unlabored respirations, skin warm/dry/pink. 15:00 Reassessment: Patient appears in no apparent distress at this time. No changes from kc6 previously documented assessment. Patient and/or family updated on plan of care and expected duration. Pain level reassessed. Patient is alert, oriented x 3, equal unlabored respirations, skin warm/dry/pink. 16:00 Reassessment: Patient appears in no apparent distress at this time. No changes from kc6 previously documented assessment. Patient and/or family updated on plan of care and expected duration. Pain level reassessed. Patient is alert, oriented x 3, equal unlabored respirations, skin warm/dry/pink. 17:11 Reassessment: Patient appears in no apparent distress at this time. No changes from kc6 previously documented assessment. Patient and/or family updated on plan of care and expected duration. Pain level reassessed. Patient is alert, oriented x 3, equal unlabored respirations, skin warm/dry/pink. Vital Signs: 11:58 BP 109 / 86; Pulse 73; Resp 20 S; Temp 97.1(A); Pulse Ox 91% on R/A; aa5 13:00 BP 109 / 79; Pulse 69; Resp 16; Pulse Ox 94% 3 lpm ; me1 14:00 BP 109 / 71; Pulse 69; Resp 19; Pulse Ox 93% 3 lpm ; me1 15:00 BP 109 / 78; Pulse 69; Resp 22; Pulse Ox 92% 4 lpm ; me1 16:14 BP 116 / 77; Pulse 77; Resp 19; Pulse Ox 100% on 3 lpm trach collar; me1 17:11 BP 119 / 76; Pulse 81; Resp 19 S; Pulse Ox 99% on 6 lpm NC; kc6 ED Course: 11:58 Patient arrived in ED. aa5 11:58 Rachel Barton MD is Attending Physician. sp3 11:58 Arm band placed on Patient placed in an exam room, on a stretcher. aa5 12:00 Triage completed. aa5 12:00 Patient has correct armband on for positive identification. Bed in low position. Call me1 light in reach. Side rails up X2. Provided Education on: POC. Verbalized understanding.. 12:00 No provider procedures requiring assistance completed. Patient maintains SpO2 me1 saturation greater than 95% on room air. 12:12 Client placed on continuous cardiac and pulse oximetry monitoring. NIBP monitoring me1 applied. lunchroom monitor on. Pulse ox on. NIBP on. 12:12 EKG done, by ED staff, reviewed by Rachel Barton MD. me1 12:40 CT Chest Abdomen Pelvis W/O Contrast In Process Unspecified. EDMS 13:32 Jerrica Harvye RN is Primary Nurse. kc6 13:53 Lipase Sent. me1 13:53 UA Rfx Vasu Cult if indicated Sent. me1 13:53 Initial lab(s) drawn, by ED staff, sent to lab. Urine collected: straight cath me1 specimen, cloudy. 15:42 Prince Ozuna MD is Hospitalizing Provider. sp3 16:00 Patient admitted, IV remains in place. kc6 Administered Medications: No medications were administered Medication: 12:00 VIS not applicable for this client. me1 Outcome: 15:43 Decision to Hospitalize by Provider. sp3 16:00 Admitted to ER Hold. Please see [facility] for further documentation. kc6 16:00 Condition: good 16:00 Instructed on the need for admit, 18:58 Patient left the ED. kc6 Signatures: Dispatcher [employer] EDMS Cyn Encinas RN RN aa5 Rachel Barton MD MD sp3 Jerrica Harvey RN RN kc6 Shauna Gandhi, EMA RN me1 Corrections: (The following items were deleted from the chart) 12:01 11:58 Acuity: KRISTINE 3 aa5 aa5 12:03 11:58 Chief complaint: EMS states: nursing staff from [facility] reported chest pain and me1 generalized weakness. Increased secretions from tracheostomy and need for deep suction today. aa5 14:43 14:42 BP 109 / 71; Pulse 69bpm; Resp 16bpm; Spontaneous; Pulse Ox 97%; kc6 kc6
[2024-09-07] MEDS ORDERED: NITROGLYCERIN 0.4 MG/TAB SL PRN (15:45)
[2024-09-07] MEDS: PANTOPRAZOLE 40 MG INJ IVP SCH (15:51)
--- NOTE | 2024-09-07 16:23 | P.HP ---
Certification for Inpatient Patient admitted to: Observation With expected LOS: <2 Midnights Practitioner: I am a practitioner with admitting privileges, knowledge of patient current condition, hospital course, and medical plan of care. Services: Services provided to patient in accordance with Admission requirements found in Title 42 Section 412.3 of the Code of Federal Regulations Patient History Date of Service: 09/07/24 Reason for admission: chest pain, generalized weakness History of Present Illness: Patient is a 64-year-old male with a known past medical history of traumatic brain injury status post tracheostomy and PEG tube, seizure disorder, CHF and CVA with right-sided residual deficit. He is brought in from [facility] where he was found to have chest pain and generalized weakness. Patient reportedly has been having increased secretions via trach. Patient was just hospitalized here a month ago for aspiration pneumonia. His chest x-ray is unremarkable based on the CAT scan chest and abdomen. He arrived in the ER PEG position was verified as well and it is appropriate. Patient does not meet criteria for sepsis. He has a normal WBC. Allergies No Known Allergies Allergy (Unverified 05/24/22 13:26) Home Medications: Hydrocodone 10/APAP 325 [[place] 10/325*] 1 tab FT Q8H 08/06/22 Hyoscyamine Sulfate [Levsin TAB*] 2 tab FT TID 08/06/22 Tizanidine HCl 4 mg FT BID 08/06/22 Valproic Acid (As Sodium Salt) [Valproic Acid] 7.5 ml FT BID 08/06/22 Sertraline [Zoloft*] 100 mg FT DAILY #30 tab 12/24/22 Acetaminophen 2 tab FT Q4H PRN 11/28/23 Albuterol Neb [Proventil 0.083% Neb Soln] 3 ml IH Q6H PRN 11/28/23 Gabapentin 300 mg PO TID 11/28/23 Loratadine [Claritin] 1 tab FT DAILY 11/28/23 levoFLOXacin [Levaquin] 750 mg PO DAILY #5 tab 08/02/24 - Past Medical/Surgical History Diabetic: No -: Other specified degenerative diseases of nervous system -: Chronic Respiratory Failure with hypoxia -: Dysphagia -: Gastrostomy -: Heart Failure, unspecified -: Hemiplegia -: Hyperlipidemia -: MRSA -: Seizures -: Anxiety -: depression -: conjuctivitis -: PEG -: neurosurgery with craniectomy -: Tracheostomy Psychosocial/ Personal History: unable to obtain, lives in [place] - Social History Alcohol use: No CD- Drugs: No Caffeine use: No Physical Examination - Physical Exam General: Other (Nonverbal) HEENT: Other (S/p craniotomy) Respiratory: Rhonchi/gurgles, Other (Oxygenated via trach) Cardiovascular: No edema, Normal pulses, Regular rate/rhythm, Normal S1 S2 - Studies Laboratory Data (last 24 hrs) 09/07/24 09/07/24 09/07/24 14:14 12:24 12:24 WBC 9.60 Hgb 15.8 Hct 46.1 Plt Count 99 L PT 12.5 INR 1.11 Sodium 141 Potassium 5.0 BUN 21 H Creatinine 0.78 Glucose 88 Magnesium 2.0 Total Bilirubin 0.5 AST 75 H ALT 34 Alkaline Phosphatase 97 Lipase 70 09/07/24 12:14 WBC Hgb Hct Plt Count PT INR Sodium Potassium BUN Creatinine Glucose Magnesium Total Bilirubin AST ALT Alkaline Phosphatase Lipase Cancelled Assessment and Plan - Plan Assessment Patient is a 64-year-old male with a known past medical history of traumatic brain injury status post tracheostomy and PEG tube, seizure disorder, CHF and CVA with right-sided residual deficit. He is brought in from [facility] where he was found to have chest pain and generalized weakness. Patient reportedly has been having increased secretions via trach. Patient was just hospitalized here a month ago for aspiration pneumonia. His chest x-ray is unremarkable based on the CAT scan chest and abdomen. He arrived in the ER PEG position was verified as well and it is appropriate. Patient does not meet criteria for sepsis. He has a normal WBC. Chest pain Suspected aspiration pneumonitis Suspected UTI Generalized weakness History of CVA Chronic diastolic CHF History of traumatic brain injury status post trach and PEG Plan: Will admit under observation with telemetry Trend troponin No need to repeat echocardiogram Will obtain a D-dimer to assess for pulmonary embolism Start meropenem given history of ESBL Proteus mirabilis from trach aspiration DuoNebs RT consulted for trach care and chest physiotherapy GI and DVT prophylaxis - Advance Directives Does patient have a Living Will: No Does patient have a Durable POA for Healthcare: No
[2024-09-07] MEDS: ALBUTEROL 2.5 MG/3 ML NEB SOL NEB SCH (16:24)
[2024-09-07] MEDS: IPRATROPIUM BROM 0.5MG/2.5ML NEB SCH (16:24)
[2024-09-07] MEDS: Meropenem 1,000 MG in NA CHLORIDE 0.9% 100 ML IV SCH (17:00)
[2024-09-07] MEDS ORDERED: PANTOPRAZOLE 40 MG INJ ONE (18:15)
[2024-09-07] MEDS ORDERED: Meropenem 1000 MG/VIAL IV ONE (18:16)
[2024-09-07] MEDS ORDERED: NA CHLORIDE 0.9% 100 ML ONE (18:16)
[2024-09-07] MEDS: SODIUM CHLORIDE 0.9% 10ML INJ IV PRN (18:26)
[2024-09-07] MEDS: MORPHINE 2 MG/ML SYR IV PRN (20:49)
[2024-09-07 23:26] LABS: HDL Cholesterol 40.0 mg/dL (40-60); LDL Cholesterol, Calculated 71.0 mg/dL (<130); LDL Cholesterol,Calc NonReport 71.0; Troponin High Sensitivity 4.3 pg/mL (<58.9)
[2024-09-07 23:29] VITALS: BMI 22.4
[2024-09-08] MEDS: D5 0.45 NS 1,000 ML IV SCH (02:39)
[2024-09-08 05:07] LABS: Absolute Lymphocytes (CBC) 2.2 K/uL (0.7-4.9); Hematocrit 46.7 % (39.6-49.0); Hemoglobin 16.0 g/dL (13.6-17.9); MCH 31.6 pg (27.0-35.0); MCHC 34.3 g/dL (32.0-36.0); MCV 92.1 fL (80-100); MPV 9.7 fL (7.6-11.3); Nucleated RBC Absolute Count 0.0 (0-0); Nucleated Red Blood Cells % 0.2 % (0-0); RBC Red Blood Cell Count 5.07 M/uL (4.33-5.43); White Blood Count 9.40 thou/uL (4.3-10.9)
[2024-09-08 05:42] LABS: Anion Gap 8.0 mEq/L (5.0-15.0); BUN Blood Urea Nitrogen 18.0 mg/dL (7-18); Glucose Level 84.0 mg/dL (74-106); Potassium 4.0 mEq/L (3.5-5.1)
[2024-09-08] MEDS ORDERED: ACETAMINOPHEN 325 MG TABLET FT PRN (06:51)
[2024-09-08] MEDS ORDERED: ALBUTEROL 2.5 MG/3 ML NEB SOL IH PRN (06:51)
[2024-09-08] MEDS: HYDROCODONE/APAP 10/325 TAB FT SCH (07:00)
[2024-09-08] MEDS: ASPIRIN EC 81 MG TAB PO SCH (09:00)
[2024-09-08] MEDS: SERTRALINE HCL 100 MG TAB FT SCH (09:15)
[2024-09-08] MEDS: GABAPENTIN 300 MG CAP PO SCH (09:15)
[2024-09-08] MEDS: TIZANIDINE 4 MG TABLET FT SCH (09:15)
[2024-09-08] MEDS: VALPROIC ACID 250 MG/5 ML OSYR FT SCH ×2 (09:15→21:55)
[2024-09-08] MEDS: LORATADINE 10 MG TAB FT SCH (09:15)
[2024-09-08] MEDS: ENOXAPARIN 40 MG/0.4 ML SQ SCH (09:16)
--- NOTE | 2024-09-08 12:28 | CON ---
Date of Consultation: 09/08/2024 Reason For Consultation: Chest pain. History Of Present Illness: A 64-year-old male status post tracheotomy and PEG tube placed, history of CHF, seizures, CVA, brought in from the sn[facility] because of generalized weakness and chest ina n. This patient is nonverbal. At the time of my evaluation, he did not have any chest pain, could n ot get any history from him, and no known history of coronary artery disease. Past Medical History: As outlined above in the HPI. Medications: Refer reconciliation sheet for detailed list. Allergies: NO KNOWN DRUG ALLERGIES. Family History: No premature coronary artery disease or cancer. Social History: Does not smoke or drink. Does not use any drugs. Review of Systems: All systems reviewed and they are negative except as mentioned in the HPI. Physical Examination: Vital Signs: Reviewed. Head and Neck: Pupils are equal, reactive to light. No JVD. No cervical lymphadenopathy. He has h istory of craniotomy with significant loss of his skull bone and there is a trach in place. Lungs: Decreased breathing sounds bilaterally with rhonchi. Heart: Regular rate and rhythm. No extra sounds. Abdomen: Soft, nontender. Bowel sounds positive. No organomegaly. No masses or hernia. No rigidi ty or rebound. Extremities: No clubbing or cyanosis. Skin: No rash. No nodules. Neuro: He is bedbound. Does not move. Lymph Nodes: No cervical or axillary lymphadenopathy. Investigations: Cardiac enzymes x3 are negative. BUN 18, creatinine 0.82, LDL cholesterol is 71, BU N 21, creatinine 0.87. Assessment And Recommendations: Chest pain, questionable. The patient is not verbal. Cardiac enzym es are negative. Recommend Lexiscan nuclear stress test on him which can be done as an outpatient. Recommend baby aspirin daily and stress test as above. SR/MODL Voice ID: [id number] Report ID: [id number]
[2024-09-08] MEDS: JEVITY 1.5 CAL LIQUID 1,000 ML BOT RTH SCH (17:10)
--- NOTE | 2024-09-08 18:38 | P.PN ---
Subjective Date of Service: 09/08/24 Chief Complaint: chest pain, generalized weakness Subjective: Improving Patient is 64 years old male with past medical history significant for traumatic brain injury status post craniectomy, tracheostomy and PEG tube. Other history significant for seizure disorder, CHF, CVA with right-sided deficit. Patient came in for the evaluation of chest pain and generalized weakness and increase tracheostomy secretion. Recent admission for aspiration pneumonia about a month ago. Patient seen at bedside alert but unable to assess orientation due to nonverbal status and trach status. However patient able to communicate with signal. He denied any chest pain and endorsed feeling better. Patient ongoing IV antibiotics treatment, and trach care. Review of Systems is unable to be obtained (Nonverbal due to the patient's CVA status) Physical Examination - Vital Signs Temperature: 98.2 F Blood Pressure: 138/75 Pulse: 80 Respirations: 18 Pulse Ox (%): 94 - Physical Exam General: Alert, In no apparent distress HEENT: PERRLA, Mucous membr. moist/pink Respiratory: Diminished, Rhonchi/gurgles Cardiovascular: No edema, Normal pulses Capillary refill: <2 Seconds Gastrointestinal: Normal bowel sounds Assessment And Plan - Plan Chest pain--resolved Suspected aspiration pneumonitis Suspected UTI Generalized weakness History of CVA Chronic diastolic CHF History of traumatic brain injury status post trach and PEG Plan: Continue to monitor patient's status Cardiac biomarkers unremarkable No need to repeat echocardiogram D-dimer is negative for PE Continue meropenem given history of ESBL Proteus mirabilis from trach aspiration Continue to monitor patient respiratory status for any distress --Ongoing tracheostomy care --Resume home medication RT consulted for trach care and chest physiotherapy GI and DVT prophylaxis
--- NOTE | 2024-09-09 09:41 | P.PN ---
Subjective Date of Service: 09/09/24 Chief Complaint: chest pain, generalized weakness Subjective: Improving (Patient is more alert and awake. He is empirically being treated for UTI. Currently with copious secretions via trach. Will order scopolamine patch and a one-time dose of glycopyrrolate.) Physical Examination - Vital Signs Temperature: 97.9 F Blood Pressure: 132/67 Pulse: 79 Respirations: 20 Pulse Ox (%): 94 - Physical Exam General: In no apparent distress, Cooperative HEENT: Other (Status postcraniotomy) Respiratory: Diminished, Rhonchi/gurgles, Other (Oxygenated via trach) Cardiovascular: Normal pulses, Regular rate/rhythm, Normal S1 S2 Assessment And Plan - Plan Assessment Patient is a 64-year-old male with a known past medical history of traumatic brain injury status post tracheostomy and PEG tube, seizure disorder, CHF and CVA with right-sided residual deficit. He is brought in from [facility] where he was found to have chest pain and generalized weakness. Patient reportedly has been having increased secretions via trach. Patient was just hospitalized here a month ago for aspiration pneumonia. His chest x-ray is unremarkable. Patient does not meet criteria for sepsis. However, he has been having moderate secretions via trach. He is being treated for a working diagnosis of UTI and aspiration pneumonitis. He has since responded to meropenem. Chest pain Suspected aspiration pneumonitis Suspected UTI Generalized weakness History of CVA Chronic diastolic CHF History of traumatic brain injury status post trach and PEG Plan: ACS and pulmonary embolism ruled out based on negative cardiac enzymes and D- dimer He has been evaluated by cardiology. Will need outpatient nuclear stress test He has since responded to meropenem, which was initiated due to a history of ESBL Proteus mirabilis from trach aspiration Today is day 3 of meropenem Continue DuoNebs RT for trach care and chest physiotherapy Will also give a trial of scopolamine and IV glycopyrrolate to minimize secretion GI and DVT prophylaxis Patient can be discharged in 1 to 2 days if he continues to improve
[2024-09-09] MEDS: SCOPOLAMINE HYDROBROMIDE PATCH TD SCH (10:56)
[2024-09-09] MEDS: GLYCOPYRROLATE 0.2 MG/ML SYR IV SCH (10:56)
[2024-09-10 06:57] LABS: Absolute Lymphocytes (CBC) 1.9 K/uL (0.7-4.9); Hematocrit 42.1 % (39.6-49.0); Hemoglobin 14.1 g/dL (13.6-17.9); MCH 31.1 pg (27.0-35.0); MCHC 33.3 g/dL (32.0-36.0); MCV 93.1 fL (80-100); MPV 9.5 fL (7.6-11.3); Nucleated RBC Absolute Count 0.0 (0-0); Nucleated Red Blood Cells % 0.1 % (0-0); RBC Red Blood Cell Count 4.53 M/uL (4.33-5.43); White Blood Count 7.30 thou/uL (4.3-10.9)
[2024-09-10 07:10] LABS: Anion Gap 7.0 mEq/L (5.0-15.0); BUN Blood Urea Nitrogen 14.0 mg/dL (7-18); Glucose Level 121.0 mg/dL (74-106); Magnesium 2.1 mg/dL (1.6-2.4); Potassium 4.0 mEq/L (3.5-5.1)
[2024-09-10] MEDS: ALBUTEROL 2.5 MG/3 ML NEB SOL NEB PRN (07:26)
--- NOTE | 2024-09-10 09:04 | P.DS ---
Admission Date: 09/09/24 Discharge Date: 09/10/24 Disposition: TRANSFER TO [facility] Discharge Condition: GOOD Reason for Admission: chest pain, generalized weakness Brief History of Present Illness: Patient is a 64-year-old male with a known past medical history of traumatic brain injury status post tracheostomy and PEG tube, seizure disorder, CHF and CVA with right-sided residual deficit. He is brought in from [facility] where he was found to have chest pain and generalized weakness. Patient reportedly has been having increased secretions via trach. Patient was just hospitalized here a month ago for aspiration pneumonia. His chest x-ray is unremarkable based on the CAT scan chest and abdomen. He arrived in the ER PEG position was verified as well and it is appropriate. Patient does not meet criteria for sepsis. He has a normal WBC. Hospital Course: Patient is a 64-year-old male with a known past medical history of traumatic brain injury status post tracheostomy and PEG tube, seizure disorder, CHF and CVA with right-sided residual deficit. He is brought in from [facility] where he was found to have chest pain and generalized weakness. Patient reportedly has been having increased secretions via trach. Patient was just hospitalized here a month ago for aspiration pneumonia. His chest x-ray is unremarkable. Patient does not meet criteria for sepsis. However, he has been having moderate secretions via trach. He is being treated for a working diagnosis of UTI and aspiration pneumonitis. He has since responded to meropenem. He has received at least 4 days of meropenem. Patient is stable from respiratory standpoint. He is medically cleared for discharge. Patient be discharged on nitrofurantoin and Augmentin. Vital Signs/Physical Exam: Temp Pulse Resp BP Pulse Ox 98.3 F 76 16 114/69 97 09/10/24 08:00 09/10/24 08:00 09/10/24 08:00 09/10/24 08:00 09/10/24 08:00 Laboratory Data at Discharge: WBC 7.30 thou/uL (4.3-10.9) 09/10/24 06:44 Hgb 14.1 g/dL (13.6-17.9) 09/10/24 06:44 Hct 42.1 % (39.6-49.0) 09/10/24 06:44 Plt Count 94 thou/uL (152-406) L 09/10/24 06:44 PT 12.5 SECONDS (10-13.0) 09/07/24 12:24 INR 1.11 09/07/24 12:24 Sodium 141 mEq/L (136-145) 09/10/24 06:44 Potassium 4.0 mEq/L (3.5-5.1) 09/10/24 06:44 BUN 14 mg/dL (7-18) 09/10/24 06:44 Creatinine 0.61 mg/dL (0.70-1.30) L 09/10/24 06:44 Glucose 121 mg/dL (74-106) H 09/10/24 06:44 Phosphorus 2.7 mg/dL (2.5-4.9) 09/10/24 06:44 Magnesium 2.1 mg/dL (1.6-2.4) 09/10/24 06:44 Total Bilirubin 0.5 mg/dL (0.2-1.0) 09/07/24 14:14 AST 75 U/L (15-37) H 09/07/24 14:14 ALT 34 U/L (16-61) 09/07/24 14:14 Alkaline Phosphatase 97 U/L (45-117) 09/07/24 14:14 Triglycerides 149 mg/dL (<150) 09/07/24 22:50 Cholesterol 141 mg/dL (<200) 09/07/24 22:50 HDL Cholesterol 40 mg/dL (40-60) 09/07/24 22:50 Cholesterol/HDL Ratio 3.53 09/07/24 22:50 Lipase 70 U/L (13-75) 09/07/24 14:14 Home Medications: Hydrocodone 10/APAP 325 [[place] 10/325*] 1 tab FT Q8H 08/06/22 Hyoscyamine Sulfate [Levsin TAB*] 2 tab FT TID 08/06/22 Tizanidine HCl 4 mg FT BID 08/06/22 Valproic Acid (As Sodium Salt) [Valproic Acid] 7.5 ml FT BID 08/06/22 Sertraline [Zoloft*] 100 mg FT DAILY #30 tab 12/24/22 Acetaminophen 2 tab FT Q4H PRN 11/28/23 Albuterol Neb [Proventil 0.083% Neb Soln] 3 ml IH Q6H PRN 11/28/23 Gabapentin 300 mg PO TID 11/28/23 Loratadine [Claritin] 1 tab FT DAILY 11/28/23 Aspirin [Aspirin EC 81 MG] 81 mg PO DAILY #30 tab 09/10/24 Ipratropium Neb [Atrovent*] 0.5 mg NEB C1XESYS amp 09/10/24 Nitrofurantoin Monohyd/M-Cryst [Nitrofurantoin [place]-Mcr 100 mg] 100 mg PO BID #10 09/10/24 Scopolamine Hydrobromide [Transderm-Scop*] 1 pat TD Q3D@0900 #9 pat 09/10/24 New Medications: Aspirin [Aspirin EC 81 MG] 81 mg PO DAILY #30 tab Nitrofurantoin Monohyd/M-Cryst [Nitrofurantoin [place]-Mcr 100 mg] 100 mg PO BID #10 Scopolamine Hydrobromide [Transderm-Scop*] 1 pat TD Q3D@0900 #9 pat Followup: Adali Eric MD [Primary Care Provider] -
[2024-09-10 09:24] VITALS: O2SAT 99
[2024-09-10 11:00] LABS: Anisocytosis 1+; Blood Morphology Comment NOTED (NOT SEEN); White Blood Cell Scan OK (OK)
[2024-09-10 12:42] VITALS: BP 90/53; TEMP 97.6
== END 2024-09-10 13:16 | DRG 689 ==
LOC: ER 11:56 → ERHOLD 15:45 → 2ND 17:02 → OBSVTOIN 09-09 09:51
PROVIDERS: ADMIT Internal Medicine; ATTEND Internal Medicine
DX: N39.0 Urinary tract infection, site not specified (principal); J69.0 Pneumonitis due to inhalation of food and vomit; J96.11 Chronic respiratory failure with hypoxia; I69.351 Hemiplegia and hemiparesis following cerebral infarction affecting right dominant side; Z87.820 Personal history of traumatic brain injury; R13.10 Dysphagia, unspecified; F41.9 Anxiety disorder, unspecified; Z93.1 Gastrostomy status; E78.5 Hyperlipidemia, unspecified; Z93.0 Tracheostomy status; Z86.14 Personal history of Methicillin resistant Staphylococcus aureus infection; G40.909 Epilepsy, unspecified, not intractable, without status epilepticus; Z79.51 Long term (current) use of inhaled steroids; Z79.2 Long term (current) use of antibiotics; G31.89 Other specified degenerative diseases of nervous system; Z79.891 Long term (current) use of opiate analgesic; F32.A Depression, unspecified; Z98.890 Other specified postprocedural states; F80.9 Developmental disorder of speech and language, unspecified; R07.9 Chest pain, unspecified
CPT/HCPCS: 36415; 71250; 74176; 80048; 80061; 80076; 81001; 82947; 83605; 83690; 83735; 83880; 84100; 84145; 84484; 85025; 85379; 85610; 87070; 87077; 87086; 87088; 87186; 87205; 93005; 94640; 99285; G0378; J1650; J2185; J2270; J2470; J7613; J7644; J7799

== ENCOUNTER 2024-11-28 05:35 | Emergency (ER) | payer MEDICAID ==
--- NOTE | 2024-11-28 06:53 | EDPHYS ---
Physician Documentation [facility] Name: Elliot Hathaway Age: 64 yrs Sex: Male : 1960 Arrival Date: 11/28/2024 Time: 05:35 Bed 2 Private MD: ED Physician Quentin Butcher HPI: 11/28 06:29 This 64 yrs old Male presents to ER via EMS with complaints of Problem With sp4 Feeding Tube. 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 senior care reported patient has bleeding from around gastrostomy tube. Patient is nonverbal not able to communicate any history. . Historical: - PMHx: 05:46 Anxiety; brain injury; chronic respiratory failure with hypoxia; DYSPHAGIA; kd3 GASTROSTOMY; HEART FAILURE; hemiplegia; Hyperlipidemia; MRSA; Seizures; - PSHx: 05:46 gastric tube; tracheostomy; kd3 - Immunization history:: Adult Immunizations up to date. - Infectious Disease History:: Denies. - Social history:: Smoking status: unknown. - Family history:: not pertinent. 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 This is covered over by the skin it's tenting inward. There is moderate to severe diffuse muscular atrophy. Gastrostomy tube is present. There is some bleeding from gastrostomy tube stoma. Head/Face: Evidence of prior severe craniofacial injury, left-sided cranial defect Eyes: Pupils equal round and reactive to light, ENT: Nares patent. No nasal discharge, no septal abnormalities noted. Tympanic membranes are normal and external auditory canals are clear. Dry oral mucosa. Neck: Trachea midline, no thyromegaly or masses palpated, and no cervical lymphadenopathy. Chronically contracted negative Chest/axilla: Normal chest wall appearance and motion. Nontender with no deformity. Cardiovascular: Regular rate and rhythm with a normal S1 and S2. No gallops, murmurs, or rubs. No pulse deficits. Respiratory: Lungs have equal breath sounds bilaterally, clear to auscultation and percussion. No rales, rhonchi or wheezes noted. Abdomen/GI: Soft, with normal bowel sounds. No distension or tympany. Left upper abdominal wall gastrostomy tube with sutures in place, small amount of bleeding from the stoma Back: No spinal tenderness. No costovertebral tenderness. Skin: Warm, dry with normal turgor. Normal color with no rashes, no lesions, and no evidence of cellulitis. MS/ Extremity: Pulses equal, no cyanosis. Moderate to severe diffuse contracture secondary to immobility Neuro: Awake and alert, severe physical debility, nonverbal male, signs of severe cognitive deficit Vital Signs: 05:45 BP 141 / 90; Pulse 75; Resp 19 S; Temp 98.9(A); Pulse Ox 99% on R/A; kd3 06:53 Weight 83.91 kg; vc1 08:00 BP 138 / 89; Pulse 81; Resp 18; Temp 98.4; Pulse Ox 96% on R/A; ph MDM: 06:53 Medical Screening Exam initiated sp4 06:54 ED course: We discussed the patient with Dr. Noriega with general surgery. Dr. Redmond sp4 is recommending careful packing around the gastrostomy edges and also follow-up with his wound care clinic today or tomorrow. Stable for discharge back to [facility]. 23:52 Differential diagnosis: GI Bleed, Irritable bowel syndrome, Peritonitis, Gastrostomy sp4 tube stoma irritation. Data reviewed: vital signs, nurses notes, EMS record, [facility] records, old medical records. ED course: Patient was discussed with general surgeon on-call who reports that patient is safe for discharge at this time with daily care to gastrostomy tube stoma. He will call fdc with further instructions.. Administered Medications: 06:52 CANCELLED (Physician Discretion): ns 0.9% 1000 ml IV at 1 bolus Per protocol; to be vc1 given as a bolus over 60 minutes Disposition Summary: 11/28/24 06:53 Discharge Ordered Notes: Please follow up with Dr. Hari Scanlon wound care clinic Location: Home sp4 Problem: new sp4 Symptoms: have improved sp4 Condition: Stable sp4 Diagnosis - Acute bleeding from gastrostomy tube stoma sp4 Followup: sp4 - With: Capo Noriega MD - When: Today - Reason: Recheck today's complaints Discharge Instructions: - Discharge Summary Sheet sp4 - Gastrostomy Tube Home Guide, Adult sp4 Forms: - SBAR form bd - Patient Portal Instructions sp4 Signatures: Dispatcher [employer] Juany Naidu RN RN kd3 Lynda Guevara RN RN vc1 Quentin Butcher MD MD sp4 Corrections: (The following items were deleted from the chart) 05:38 05:38 Abdomen Pelvis W Con+CT.RAD.BRZ ordered. EDMS EDMS 06:52 05:38 NS 0.9% IV 1000 ml IV at 1 bolus Per protocol; to be given as a bolus over 60 vc1 minutes ordered. sp4 06:52 05:38 IV Saline Lock ordered. sp4 vc1 06:52 05:38 Labs collected and sent ordered. sp4 vc1
--- NOTE | 2024-11-28 06:53 | ER ---
Nurse's Notes [facility] Name: Elliot Hathaway Age: 64 yrs Sex: Male : 1960 Arrival Date: 11/28/2024 Time: 05:35 Bed 2 Private MD: Diagnosis: Acute bleeding from gastrostomy tube stoma Presentation: 11/28 05:45 Chief complaint: EMS states: Pt presents to the ED from [facility] home with kd3 blood in his feeding tube. group home staff reports bright red blood in the tube. Coronavirus screen: unknown. Ebola Screen: No symptoms or risks identified at this time. Initial Sepsis Screen: Does the patient meet any 2 criteria? No. Patient's initial sepsis screen is negative. Does the patient have a suspected source of infection? No. Patient's initial sepsis screen is negative. Risk Assessment: Do you want to hurt yourself or someone else? Patient reports no desire to harm self or others. Onset of symptoms was November 28, 2024. 05:45 Method Of Arrival: EMS: [facility] kd3 05:45 Acuity: KRISTINE 4 kd3 Triage Assessment: 05:46 General: Appears in no apparent distress. Behavior is calm. General: Appears. kd3 Historical: - PMHx: 05:46 Anxiety; brain injury; chronic respiratory failure with hypoxia; DYSPHAGIA; kd3 GASTROSTOMY; HEART FAILURE; hemiplegia; Hyperlipidemia; MRSA; Seizures; - PSHx: 05:46 gastric tube; tracheostomy; kd3 - Immunization history:: Adult Immunizations up to date. - Infectious Disease History:: Denies. - Social history:: Smoking status: unknown. - Family history:: not pertinent. Screenin:48 [facility] ED Fall Risk Assessment (Adult) History of falling in the last 3 months, vc1 including since admission No falls in past 3 months (0 pts) Confusion or Disorientation No (0 pts) Intoxicated or Sedated No (0 pts) Impaired Gait Yes (1 pt) Mobility Assist Device Used Yes (1 pt) Altered Elimination Yes (1 pt) Score/Fall Risk Level 3 or more points = High Risk Oriented to surroundings, Maintained a safe environment, Educated pt \T\ family on fall prevention, incl call for assistance when getting out of bed, Hourly rounding (assess needs \T\ fall precautionary measures) done. Abuse screen: Denies threats or abuse. Nutritional screening: No deficits noted. Tuberculosis screening: No symptoms or risk factors identified. Assessment: 06:49 General: Appears in no apparent distress. uncomfortable, Behavior is cooperative. Pain: vc1 Complains of pain in left upper quadrant. Neuro: Level of Consciousness is awake, obeys commands, Oriented to person, place, situation. Cardiovascular: Heart tones S1 S2 present Capillary refill < 3 seconds Patient's skin is warm and dry. Respiratory: Airway patient with trach, currently on room air Respiratory effort is even, unlabored, Respiratory pattern is regular, symmetrical. GI: PEG tube site with moderate amount of pooling blood. 1 suture from PEG tube missing. : No deficits noted. No signs and/or symptoms were reported regarding the genitourinary system. EENT: No deficits noted. No signs and/or symptoms were reported regarding the EENT system. Derm: Wound noted left upper quadrant. Musculoskeletal:. 07:54 Reassessment: REPORT CALLED TO EMA JACINTO. cc6 Vital Signs: 05:45 BP 141 / 90; Pulse 75; Resp 19 S; Temp 98.9(A); Pulse Ox 99% on R/A; kd3 06:53 Weight 83.91 kg; vc1 08:00 BP 138 / 89; Pulse 81; Resp 18; Temp 98.4; Pulse Ox 96% on R/A; ph ED Course: 05:37 Patient arrived in ED. rv1 05:37 Quentin Butcher MD is Attending Physician. sp4 05:44 Juany Smith, EMA is Primary Nurse. kd3 05:46 Triage completed. kd3 06:48 Arm band placed on right wrist. vc1 06:49 Patient has correct armband on for positive identification. Bed in low position. Call vc1 light in reach. Provided Education on: Plan of care. 06:52 Capo Noriega MD is Referral Physician. sp4 08:41 No provider procedures requiring assistance completed. Patient did not have IV access ph during this emergency room visit. Administered Medications: 06:52 CANCELLED (Physician Discretion): ns 0.9% 1000 ml IV at 1 bolus Per protocol; to be vc1 given as a bolus over 60 minutes Medication: 06:49 VIS not applicable for this client. vc1 Outcome: 06:53 Discharge ordered by MD. sp4 08:41 Discharged to [facility]. ph 08:41 Condition: good 08:41 Discharge instructions given to fdc, Instructed on follow up and referral plans. 08:42 Patient left the ED. ph Signatures: Eva Newberry, RN RN Juany Bedolla, RN RN kd3 Lynda Guevara, RN RN vc1 Tatyana Sosa Sergey, MD MD sp4 Briana Davis, RN RN cc6
[2024-11-28 15:37] VITALS: BP 138/89; TEMP 98.4; O2SAT 96
== END 2024-11-28 08:42 | disposition home or self-care (01) ==
LOC: ER 05:35
DX: K94.21 Gastrostomy hemorrhage (principal)
CPT/HCPCS: 99283